=== PATIENT | male | born 1935 | race Caucasian/White ===

== ENCOUNTER 2019-04-01 15:36 | Inpatient (IN) | payer MEDICARE, OTHER ==
[~2019-04-01] VITALS: Ht 175.3 cm; Wt 87.3 kg
[2019-04-01] MEDS ORDERED: ATOR20TA38 PO (16:23)
[2019-04-01] MEDS ORDERED: MIDO5TAB PO (16:24)
[2019-04-01] MEDS ORDERED: FURO40TA4 PO (16:24)
[2019-04-01] MEDS ORDERED: SACU1TAB PO (16:25)
[2019-04-01] MEDS ORDERED: MONT10TA24 PO (16:26)
[2019-04-01] MEDS ORDERED: NEPHRO-VITE PO (16:26)
[2019-04-01] MEDS ORDERED: AMIO200T4 PO (16:29)
[2019-04-01] MEDS ORDERED: VANCOMYCIN 1 GM (PMX) 250 ML IVPB ONE (16:30)
[2019-04-01] MEDS ORDERED: IPRATROPIUM (NEB) 0.5 MG/2.5 ML AMP HHN ONE (16:30)
[2019-04-01] MEDS ORDERED: ALBUTEROL 0.083% (NEB) 2.5 MG/3 ML AMP HHN STA (16:30)
[2019-04-01] MEDS ORDERED: SEVE800T7 PO (16:30)
[2019-04-01] MEDS ORDERED: CEFEPIME 1GM/50 ML (PMX) 50 ML IVPB ONE (16:30)
[2019-04-01] MEDS ORDERED: FENO134C PO (16:31)
[2019-04-01] MEDS ORDERED: ASPI-817 PO (16:31)
[2019-04-01] MEDS ORDERED: METO-335 PO (16:31)
[2019-04-01] MEDS ORDERED: DOCU-159 PO (16:32)
[2019-04-01] MEDS ORDERED: ASPIRIN 81 MG TAB PO ONE (17:30)
[2019-04-01] MEDS ORDERED: ACETAMINOPHEN 325 MG TAB PO PRN (18:00)
[2019-04-01] MEDS ORDERED: ONDANSETRON 4 MG INJ IV PRN (18:00)
--- NOTE | 2019-04-01 18:15 | ERD ---
ER Documentation Chief Complaint Chief Complaint Hypotensive 2 hrs into dialysis 50s systolic, Fire had 112 sys onscene HPI Patient is a 83-year-old male with dialysis who presents with a low blood pressure. The patient was brought in by ambulance. He was 2 hours in dialysis when they had to stop because his blood pressure was 56/26. He denies chest pain or shortness of breath. Upon review of old medical records this is the p atgabriel's first visit to our emergency department. His primary doctor is Dr. Hinton. ROS All systems reviewed and are negative except as per history of present illness. Medications Home Meds Reported Medications Docusate Sodium* (Docusate Sodium*) 100 Mg Capsule, 100 MG PO BID, #60 CAP 04/01/19 Metoprolol Succinate* (Toprol XL*) 25 Mg Tab.sr.24h, 25 MG PO DAILY, #30 TAB 04/01/19 Aspirin* (Aspirin* EC) 81 Mg Tablet.dr, 81 MG PO DAILY, TAB 04/01/19 Fenofibrate, Micronized (Fenofibrate) 134 Mg Capsule, 134 MG PO DAILY, CAP 04/01/19 Sevelamer Carbonate* (Renvela*) 800 Mg Tablet, 1.6 GM PO BID, TAB 04/01/19 Amiodarone Hcl* (Amiodarone Hcl*) 200 Mg Tablet, 200 MG PO DAILY, #30 TAB TAKE Q ,,SAT WITH DIALYSIS 04/01/19 Montelukast Sodium* (Montelukast Sodium*) 10 Mg Tablet, 10 MG PO QHS, #30 TAB 04/01/19 [Nephro-Elieser] No Conflict Check, 1 TAB PO DAILY 04/01/19 Sacubitril/Valsartan (Entresto 24 mg-26 mg Tablet) 1 Each Tablet, 1 EACH PO BID, TAB 04/01/19 Midodrine* (Midodrine*) 5 Mg Tablet, 5 MG PO DAILY, TAB 04/01/19 Furosemide* (Furosemide*) 40 Mg Tablet, 40 MG PO DAILY, TAB 04/01/19 Atorvastatin Calcium* (Atorvastatin Calcium*) 20 Mg Tablet, 20 MG PO QHS, #30 TAB 04/01/19 Allergies Allergies: Coded Allergies: No Known Allergy (Unverified , 04/01/19) PMhx/Soc History of Surgery: Yes (Pace maker, dialysis shunt) Anesthesia Reaction: No Hx Neurological Disorder: No Hx Respiratory Disorders: Yes (Asthma) Hx Cardiac Disorders: Yes (A-fib, HTN, Pace Maker) Hx Psychiatric Problems: No Hx Miscellaneous Medical Probl: No Hx Alcohol Use: No Hx Substance Use: No Hx Tobacco Use: Yes (Quit cigarettes 2003) Smoking Status: Former smoker FmHx Family History: No diabetes Physical Exam Vitals Vital Signs Date Temp Pulse Resp B/P (MAP) Pulse Ox O2 O2 Flow FiO2 Time Delivery Rate 04/01/19 84 24 100 Nasal 6.0 16:58 Cannula 04/01/19 97.6 64 22 100/44 87 Room Air 16:10 (62) 04/01/19 97.6 68 22 100/44 15:57 (62) Physical Exam Const: Chronically ill Head: Atraumatic Eyes: Normal Conjunctiva ENT: Dry mucous membranes Neck: Full range of motion. No meningismus. Resp: Wheezing diffusely Cardio: Regular rate and rhythm, no murmurs Abd: Soft, non tender, non distended. Normal bowel sounds Skin: Pale skin Back: No midline or flank tenderness Ext: No cyanosis, or edema Neur: Awake and alert Psych: Normal Mood and Affect Result Diagram: 04/01/19 1621 04/01/19 1621 Results 24 hrs Laboratory Tests Test 04/01/19 16:21 04/01/19 16:27 White Blood Count 24.3 10^3/ul Red Blood Count 3.25 10^6/ul Hemoglobin 10.2 g/dl Hematocrit 32.9 % Mean Corpuscular Volume 101.2 fl Mean Corpuscular Hemoglobin 31.4 pg Mean Corpuscular Hemoglobin Concent 31.0 g/dl Red Cell Distribution Width 15.4 % Platelet Count 446 10^3/UL Mean Platelet Volume 10.4 fl Immature Granulocytes % 2.200 % Neutrophils % 88.8 % Lymphocytes % 2.8 % Monocytes % 6.0 % Eosinophils % 0.0 % Basophils % 0.2 % Nucleated Red Blood Cells % 0.0 /100WBC Immature Granulocytes # 0.530 10^3/ul Neutrophils # 21.6 10^3/ul Lymphocytes # 0.7 10^3/ul Monocytes # 1.5 10^3/ul Eosinophils # 0.0 10^3/ul Basophils # 0.0 10^3/ul Nucleated Red Blood Cells # 0.0 10^3/ul Prothrombin Time 17.5 Sec Prothrombin Time Ratio 1.4 INR International Normalized Ratio 1.42 Activated Partial Thromboplast Time 34.6 Sec Sodium Level 138 mmol/L Potassium Level 5.4 mmol/L Chloride Level 96 mmol/L Carbon Dioxide Level 22 mmol/L Anion Gap 20 Blood Urea Nitrogen 44 mg/dl Creatinine 5.12 mg/dl Est Glomerular Filtrat Rate mL/min mL/min Glucose Level 159 mg/dl Calcium Level 8.9 mg/dl Total Bilirubin 0.8 mg/dl Direct Bilirubin 0.30 mg/dl Indirect Bilirubin 0.5 mg/dl Aspartate Amino Transf (AST/SGOT) 51 IU/L Alanine Aminotransferase (ALT/SGPT) 46 IU/L Alkaline Phosphatase 65 IU/L Troponin I 0.137 ng/ml Total Protein 6.5 g/dl Albumin 3.3 g/dl Globulin 3.20 g/dl Albumin/Globulin Ratio 1.03 POC Venous Lactate 2.6 mmol/L Current Medications Medications Dose Sig/Yanick Start Time Status Last (Trade) Ordered Route PRN Stop Time Admin Dose Reason Admin Albuterol 5 mg ONCE STAT 04/01/19 DC 04/01/19 (Proventil HHN 16:30 16:53 0.083% (Neb)) 04/01/19 16:31 Ipratropium 0.5 mg ONCE ONCE 04/01/19 DC 04/01/19 Basile HHN 16:30 16:53 (Atrovent 04/01/19 16:31 0.02% (Neb)) Vancomycin 250 ml @ ONCE ONCE 04/01/19 04/01/19 HCl 125 mls/hr IVPB 16:30 17:15 04/01/19 18:29 Cefepime HCl 50 ml @ ONCE ONCE 04/01/19 DC 04/01/19 100 mls/hr IVPB 16:30 17:15 04/01/19 16:59 Aspirin 162 mg ONCE ONCE 04/01/19 DC 04/01/19 (Aspirin) PO 17:30 17:23 04/01/19 17:31 Ondansetron 4 mg ER BRIDGE 04/01/19 HCl (Zofran PRN IV 18:00 Inj) NAUSEA/VOMITI 04/02/19 17:59 NG 650 mg ER BRIDGE 04/01/19 Acetaminophen PRN PO 18:00 (Tylenol .MILD PAIN 04/02/19 17:59 Tab) 1-3 OR TEMP Procedures/MDM EKG read by me: Rate/Rhythm: Wide QRS at a regular rate Intervals: Normal Impression: Wide QRS X-ray read by radiology. Sepsis Documentation: Patient's infectious symptoms have not stabilized and the patient is at risk of rapid decompensation. The patient will be admitted for careful hydration, antibiotic therapy, and infectious source control. SEVERE SEPSIS CRITERIA: Infectious source: Pneumonia End organ damage indicated by: Lactate greater than 2 SEPSIS MANAGEMENT Time of recognition of sepsis: 1626. Time of recognition of severe sepsis: 1626. Time of recognition of septic shock: No septic shock at this time. 3 HOUR BUNDLE Blood cultures x 2 before broad-spectrum antibiotics: Yes 30 ml/kg NS bolus not given as the patient is a dialysis patient and I was con cerned about fluid overload Initial lactate 2.6 Repeat lactate pending SEPTIC SHOCK ASSESSMENT: No lactic acid > 4.0 No persistent hypotension (SBP < 90 or 40 mmHg drop, MAP < 65) despite 30 mL/kg IV fluid bolus VOLUME REASSESSMENT FOR SEPTIC SHOCK: No septic shock at this time PERSISTENT HYPOTENSION TREATMENT: Comfort care no Central line not Required Vasopressor started not required I considered further perfusion assessment with CVP measurement, SCVO2, bedside ultrasound volume assessment, passive leg raise, trial of further fluid bolus. And proceeded with broad-spectrum antibiotics, aspirin for a positive troponin, and admission. I spoke with Dr. Pineda who knows the patient well and will admit the patient to a telemetry bed. CRITICAL CARE Critical care time 35 minutes Emergent fluid management while maintaining close respiratory support. Provision of immediate and broad-spectrum antibiotic therapy. Simultaneous assessment for possible sources in order to direct targeted therapy. Consideration for invasive and chemical support to prevent cardiopulmonary c ollapse. Critical care time is independent of procedures performed. Departure Diagnosis: Primary Impression: Hyperkalemia Additional Impressions: PNA (pneumonia) Pneumonia type: due to unspecified organism Laterality: unspecified laterality Lung location: unspecified part of lung Qualified Codes: J18.9 - Pneumonia, unspecified organism Severe sepsis NSTEMI (non-ST elevated myocardial infarction) Condition: Serious JUAN R CHRISTENSEN MD Apr 01, 2019 18:15
[2019-04-01] MEDS ORDERED: SOD CHLORIDE 0.9% 1,000 ML IV STA ×2 (18:23→19:16)
[2019-04-01] MEDS ORDERED: NA BICARBONATE 8.4% 50 ML SYG IV ONE (19:30)
[2019-04-01 20:00] VITALS: PULSE 82
[2019-04-01] MEDS ORDERED: NORepinephrine 8MG/250 ML (PMX 250 ML IV STA (20:02)
[2019-04-01] MEDS ORDERED: VANCOMYCIN IV PER PHARMACY XX SCH (21:00)
[2019-04-01] MEDS ORDERED: ALBUTEROL/IPRATROPIUM (NEB) 3 ML AMP NEB PRN (21:00)
[2019-04-01] MEDS ORDERED: VANCOMYCIN 1 GM in 250 ML IVPB ONE (22:00)
--- NOTE | 2019-04-01 22:42 | CONS ---
Consult Date/Type/Reason Admit Date/Time Apr 01, 2019 at 17:43 Initial Consult Date Date/Time of Note DATE: 04/01/19 TIME: 22:41 Subjective full note dictated had extensive discussion with patient. wants to be full code still. aware of ct findings at [facility]. Objective Vitals Vital Signs Date Temp Pulse Resp B/P (MAP) Pulse Ox O2 O2 Flow FiO2 Time Delivery Rate 04/01/19 117 19 123/46 100 Nasal 2.0 22:10 (71) Cannula 04/01/19 97.6 21:45 Results/Medications Result Diagram: 04/01/19 1621 04/01/19 1621 Results 24 hrs Laboratory Tests Test 04/01/19 16:21 04/01/19 16:27 04/01/19 19:16 White Blood Count 24.3 H Red Blood Count 3.25 L Hemoglobin 10.2 L Hematocrit 32.9 L Mean Corpuscular Volume 101.2 H Mean Corpuscular Hemoglobin 31.4 Mean Corpuscular Hemoglobin Concent 31.0 L Red Cell Distribution Width 15.4 H Platelet Count 446 H Mean Platelet Volume 10.4 Immature Granulocytes % 2.200 H Neutrophils % 88.8 H Lymphocytes % 2.8 L Monocytes % 6.0 Eosinophils % 0.0 Basophils % 0.2 Nucleated Red Blood Cells % 0.0 Immature Granulocytes # 0.530 H Neutrophils # 21.6 H Lymphocytes # 0.7 L Monocytes # 1.5 H Eosinophils # 0.0 Basophils # 0.0 Nucleated Red Blood Cells # 0.0 Prothrombin Time 17.5 H Prothrombin Time Ratio 1.4 INR International Normalized Ratio 1.42 Activated Partial Thromboplast Time 34.6 Sodium Level 138 Potassium Level 5.4 H Chloride Level 96 L Carbon Dioxide Level 22 Anion Gap 20 H Blood Urea Nitrogen 44 H Creatinine 5.12 H Est Glomerular Filtrat Rate mL/min Glucose Level 159 Calcium Level 8.9 Total Bilirubin 0.8 Direct Bilirubin 0.30 H Indirect Bilirubin 0.5 Aspartate Amino Transf (AST/SGOT) 51 H Alanine Aminotransferase (ALT/SGPT) 46 Alkaline Phosphatase 65 Troponin I 0.137 *H Total Protein 6.5 Albumin 3.3 Globulin 3.20 Albumin/Globulin Ratio 1.03 POC Venous Lactate 2.6 *H Lactic Acid Level 3.2 *H Home Meds Reported Medications Docusate Sodium* (Docusate Sodium*) 100 Mg Capsule, 100 MG PO BID, #60 CAP 04/01/19 Metoprolol Succinate* (Toprol XL*) 25 Mg Tab.sr.24h, 25 MG PO DAILY, #30 TAB 04/01/19 Aspirin* (Aspirin* EC) 81 Mg Tablet.dr, 81 MG PO DAILY, TAB 04/01/19 Fenofibrate, Micronized (Fenofibrate) 134 Mg Capsule, 134 MG PO DAILY, CAP 04/01/19 Sevelamer Carbonate* (Renvela*) 800 Mg Tablet, 1.6 GM PO BID, TAB 04/01/19 Amiodarone Hcl* (Amiodarone Hcl*) 200 Mg Tablet, 200 MG PO DAILY, #30 TAB TAKE Q ,,SAT WITH DIALYSIS 04/01/19 Montelukast Sodium* (Montelukast Sodium*) 10 Mg Tablet, 10 MG PO QHS, #30 TAB 04/01/19 [Nephro-Elieser] No Conflict Check, 1 TAB PO DAILY 04/01/19 Sacubitril/Valsartan (Entresto 24 mg-26 mg Tablet) 1 Each Tablet, 1 EACH PO BID, TAB 04/01/19 Midodrine* (Midodrine*) 5 Mg Tablet, 5 MG PO DAILY, TAB 04/01/19 Furosemide* (Furosemide*) 40 Mg Tablet, 40 MG PO DAILY, TAB 04/01/19 Atorvastatin Calcium* (Atorvastatin Calcium*) 20 Mg Tablet, 20 MG PO QHS, #30 TAB 04/01/19 Medications Current Medications Ondansetron HCl (Zofran Inj) 4 mg ER BRIDGE PRN IV NAUSEA/VOMITING; Start 04/01/19 at 18:00; Stop 04/02/19 at 17:59 Acetaminophen (Tylenol Tab) 650 mg ER BRIDGE PRN PO .MILD PAIN 1-3 OR TEMP; Start 04/01/19 at 18:00; Stop 04/02/19 at 17:59 Norepinephrine 250 ml @ 7.5 mls/hr ONCE STAT IV Last administered on 04/01/19at 20:34; Admin Dose 56.25 MLS/HR; Start 04/01/19 at 20:02; Stop 04/03/19 at 05:21 Amiodarone HCl (Cordarone) 200 mg DAILY PO ; Start 04/02/19 at 09:00 Aspirin (Halfprin) 81 mg DAILY PO ; Start 04/02/19 at 09:00 Atorvastatin Calcium (Lipitor) 20 mg QHS PO ; Start 04/01/19 at 21:00 Docusate Sodium (Colace) 100 mg BID PO ; Start 04/01/19 at 21:00 Midodrine (Proamatine) 5 mg DAILY PO ; Start 04/02/19 at 09:00 Montelukast Sodium (Singulair) 10 mg QHS PO ; Start 04/01/19 at 21:00 Sevelamer Carbonate (Renvela) 1.6 gm BID WITH MEALS PO ; Start 04/01/19 at 21:00 Albuterol/ Ipratropium (Duoneb) 3 ml Q2H RESP THERAPY PRN NEB SHORTNESS OF BREATH; Start 04/01/19 at 21:00 Zolpidem Tartrate (Ambien) 5 mg QHS PRN PO INSOMNIA; Start 04/01/19 at 21:00 Vancomycin HCl (Vanco Iv Per Pharmacy) VANCOMYCIN PER PHARMACY PER PROTOCOL XX ; Start 04/01/19 at 21:00 Cefepime HCl 50 ml @ 100 mls/hr Q24H IVPB ; Start 04/02/19 at 09:00 Vancomycin HCl 250 ml @ 125 mls/hr ONCE ONCE IVPB ; Start 04/01/19 at 22:00; Stop 04/01/19 at 23:59 DYLAN GREENE MD Apr 01, 2019 22:42
[2019-04-01 22:44] VITALS: PULSE 99
[2019-04-01 23:00] VITALS: BP 101/77; PULSE 98; RESP 24
[2019-04-01] MEDS ORDERED: SODIUM POLYSTYRENE 15 GM KIT (POWDER + SORBITOL) PO ONE (23:00)
[2019-04-01 23:15] VITALS: BP 122/46; PULSE 92; RESP 22
[2019-04-01] MEDS: MONTELUKAST 10 MG TAB PO SCH (23:19)
[2019-04-01] MEDS: DOCUSATE SODIUM 100 MG CAP PO SCH (23:20)
[2019-04-01] MEDS: ATORVASTATIN 20 MG TAB PO SCH (23:20)
[2019-04-01] MEDS: SEVELAMER CARBONATE 0.8 GM PKT PO SCH (23:25)
[2019-04-01 23:30] VITALS: BP 97/51; PULSE 99; RESP 19
[2019-04-01 23:45] VITALS: BP 95/46; PULSE 93; RESP 24
[2019-04-02] VITALS (111 sets, daily range): BP systolic 76–139; BP diastolic 22–97; PULSE 58–180; RESP 13–31; Ht 175.3 cm; Wt 87.3 kg
[2019-04-02] MEDS: NORepinephrine 8MG/250 ML (PMX 250 ML IV SCH (02:32)
--- NOTE | 2019-04-02 05:30 | HP ---
DATE OF ADMISSION: 04/01/2019 HISTORY OF PRESENT ILLNESS: The patient is an 83-year-old gentleman with past medical history of end-stage renal disease on dialysis, hypertension, atrial fibrillation, congestive heart failure. The patient presents to the Emergency Room after noticing low blood pressure at dialysis. They had to stop as his blood pressure was 56/26. It initially came up, but in the Emergency Room, dropped again, patient has chronic low blood pressures on midodrine and as an outpatient. In the Emergency Room, noted to have pneumonia. The patient was recently at [facility] for a week. Discharged just several days ago, patient good historian despite his language barrier. His last hospitalization was for heart failure. Also had CT abdomen which showed likely hepatic cell carcinoma and peritoneal carcinomatosis, had 4 liter paracentesis on 03/27/2019. 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 ALLERGIES: The patient has no known allergies. SOCIAL HISTORY: Does not smoke, drink or use IV drugs. FAMILY HISTORY: No history of kidney disease. REVIEW OF SYSTEMS: A 14-point review of systems attempted, negative. PHYSICAL EXAMINATION: VITAL SIGNS: Temperature 97.6, blood pressure 100/44. HEENT: Normocephalic, atraumatic. Pupils equal, round. Oropharynx has moist mucous membranes. NECK: Supple. HEART: Regular rate and rhythm. LUNGS: Clear to auscultation anteriorly. ABDOMEN: Soft, nontender, nondistended. Normoactive bowel sounds. EXTREMITIES: No clubbing, cyanosis, edema. SKIN: Shows no rashes. CHEST: Symmetric. LABORATORY EVALUATION: White count 24.3, hemoglobin 10.0, hematocrit 32.9. Sodium 130, potassium 5.4, BUN 44, creatinine 5.1. UA is reviewed on microscopy. Chest x-ray is reviewed by radiologist. IMPRESSION: 1. Severe sepsis in the ICU with shock, status post fluid challenge, may need pressors if bp doesn't respond. 2. Hyperkalemia, borderline. Shifting measures will repeat. May need dialysis sooner than later. 3. Pneumonia. Continue broad spectrum antibiotics. Follow up cultures. 4. 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 Will need to have goals and values discussion. 5. Non-ST elevation myocardial infarction. Possibly demand type 2. Will need cardiology consult. 6. Diabetes. Continue sliding scale in the hospital. 7. Atrial fibrillation, on amiodarone. 8. Congestive heart failure, multiple drugs, hold in light of hypotension. Dictated By: DYLAN GREEEN MD DF/CORNELIA Conf#: [id number] DID#: [id number]
[2019-04-02] MEDS: CEFEPIME 1GM/50 ML (PMX) 50 ML IVPB SCH (08:24)
[2019-04-02] MEDS: SEVELAMER CARBONATE 0.8 GM PKT PO SCH ×2 (08:25→17:06)
[2019-04-02] MEDS: ASPIRIN (EC) 81 MG TAB PO SCH (08:25)
[2019-04-02] MEDS: MIDODRINE 5 MG TAB PO SCH (08:25)
[2019-04-02] MEDS: AMIODARONE 200 MG TAB PO SCH (08:26)
[2019-04-02] MEDS: DOCUSATE SODIUM 100 MG CAP PO SCH ×2 (08:26→22:50)
[2019-04-02] MEDS ORDERED: CEFEPIME HCL 1 GM VIAL IV SCH (09:00)
--- NOTE | 2019-04-02 12:05 | PN ---
Date/Time of Note Date/Time of Note DATE: 04/02/19 TIME: 12:01 Assessment/Plan VTE Prophylaxis SCD applied (from Nsg): Yes Pharmacological prophylaxis: NA/contraindicated Pharm contraindication: other Lines/Catheters IV Catheter Type (from Nrsg): Central Line Central line still needed: Yes Urinary Cath still in place: No Assessment/Plan Hospital Course 1. Septic shock: unclear source. possible pna? cont abx and pressors. s/p IVF. will give further gentle hydration. blood cx x2. ID consulted 2. Hyperkalemia: s/p kayexalate. will do HD today 3. Pneumonia. Continue broad spectrum antibiotics. Follow up cultures. 4. 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 Will need to have goals and values discussion. 5. Non-ST elevation myocardial infarction. Possibly demand type 2. Dr. Berumen consulted 6. Diabetes. Continue sliding scale in the hospital. 7. Atrial fibrillation, on amiodarone. 8. Congestive heart failure, multiple drugs, hold in light of hypotension. repeat echo 9. anemia due to chronic disease: decrease in hg due to hemodilution? check fobt and iron studies. epogen with hd 10. Bone Mineral disease: monitor ca and phos Result Diagram: 04/02/19 0222 04/02/19 0222 Results 24hrs Laboratory Tests Test 04/01/19 16:21 04/01/19 16:27 04/01/19 19:16 04/01/19 21:52 White Blood Count 24.3 H Red Blood Count 3.25 L Hemoglobin 10.2 L Hematocrit 32.9 L Mean Corpuscular 101.2 H Volume Mean Corpuscular 31.4 Hemoglobin Mean Corpuscular 31.0 L Hemoglobin Concent Red Cell 15.4 H Distribution Width Platelet Count 446 H Mean Platelet Volume 10.4 Immature 2.200 H Granulocytes % Neutrophils % 88.8 H Lymphocytes % 2.8 L Monocytes % 6.0 Eosinophils % 0.0 Basophils % 0.2 Nucleated Red Blood 0.0 Cells % Immature 0.530 H Granulocytes # Neutrophils # 21.6 H Lymphocytes # 0.7 L Monocytes # 1.5 H Eosinophils # 0.0 Basophils # 0.0 Nucleated Red Blood 0.0 Cells # Prothrombin Time 17.5 H Prothrombin Time 1.4 Ratio INR International 1.42 Normalized Ratio Activated 34.6 Partial Thromboplast Time Sodium Level 138 Potassium Level 5.4 H Chloride Level 96 L Carbon Dioxide Level 22 Anion Gap 20 H Blood Urea Nitrogen 44 H Creatinine 5.12 H Est Glomerular Filtrat Rate mL/min Glucose Level 159 Hemoglobin A1c 6.5 H Calcium Level 8.9 Total Bilirubin 0.8 Direct Bilirubin 0.30 H Indirect Bilirubin 0.5 Aspartate Amino 51 H Transf (AST/SGOT) Alanine 46 Aminotransferase (AL T/SGPT) Alkaline Phosphatase 65 Troponin I 0.137 *H 0.135 *H Total Protein 6.5 Albumin 3.3 Globulin 3.20 Albumin/Globulin 1.03 Ratio POC Venous Lactate 2.6 *H Lactic Acid Level 3.2 *H 2.2 *H Test 04/02/19 02:21 04/02/19 02:22 Hepatitis B Surface NEGATIVE Antigen White Blood Count 30.0 #H Red Blood Count 2.86 L Hemoglobin 8.9 L Hematocrit 30.3 L Mean Corpuscular 105.9 H Volume Mean Corpuscular 31.1 Hemoglobin Mean Corpuscular 29.4 L Hemoglobin Concent Red Cell 15.7 H Distribution Width Platelet Count 488 H Mean Platelet Volume 10.9 H Immature 2.600 H Granulocytes % Neutrophils % Segmented 81 H Neutrophils % (Manual) Band Neutrophils % 8 H (Manual) Lymphocytes % Lymphocytes % 4 L (Manual) Monocytes % Monocytes % (Manual) 7 Eosinophils % Basophils % Nucleated Red Blood 0.1 H Cells % Immature 0.790 H Granulocytes # Neutrophils # Neutrophils # 25.0 H (Manual) Band Neutrophils # 2.4 H Lymphocytes (Manual) 1.2 Lymphocytes # Monocytes # Monocytes # (Manual) 2.1 H Eosinophils # Basophils # Nucleated Red Blood Cells # Platelet Estimate NORMAL Polychromasia 3+ Poikilocytosis 3+ Sodium Level 139 Potassium Level 5.5 H Chloride Level 100 Carbon Dioxide Level 14 L Anion Gap 25 H Blood Urea Nitrogen 50 H Creatinine 5.91 H Est Glomerular Filtrat Rate mL/min Glucose Level 256 H Calcium Level 8.4 Magnesium Level 2.4 Troponin I 0.103 Subjective 24 Hr Interval Summary Free Text/Dictation pt on levophed denies shortness of breath, n/v, cough having BM with Kayexalate but no diarrhea prior. also denies f/c d/w rn PE gen nad cv rrr pulm ctab abd soft, nd, nt +bs ext: no edema Exam/Review of Systems Exam Vitals Vital Signs Date Temp Pulse Resp B/P (MAP) Pulse Ox O2 O2 Flow FiO2 Time Delivery Rate 04/02/19 87 24 95/44 (61) 100 09:30 04/02/19 Room Air 09:00 04/02/19 98.4 08:00 04/01/19 2.0 22:10 Intake and Output 04/01/19 04/01/19 04/02/19 1515:00 23:00 07:00 IntakeIntake Total 503 ml OutputOutput Total 0 ml BalanceBalance 503 ml Results Results 24hrs Laboratory Tests Test 04/01/19 16:21 04/01/19 16:27 04/01/19 19:16 04/01/19 21:52 White Blood Count 24.3 H Red Blood Count 3.25 L Hemoglobin 10.2 L Hematocrit 32.9 L Mean Corpuscular 101.2 H Volume Mean Corpuscular 31.4 Hemoglobin Mean Corpuscular 31.0 L Hemoglobin Concent Red Cell 15.4 H Distribution Width Platelet Count 446 H Mean Platelet Volume 10.4 Immature 2.200 H Granulocytes % Neutrophils % 88.8 H Lymphocytes % 2.8 L Monocytes % 6.0 Eosinophils % 0.0 Basophils % 0.2 Nucleated Red Blood 0.0 Cells % Immature 0.530 H Granulocytes # Neutrophils # 21.6 H Lymphocytes # 0.7 L Monocytes # 1.5 H Eosinophils # 0.0 Basophils # 0.0 Nucleated Red Blood 0.0 Cells # Prothrombin Time 17.5 H Prothrombin Time 1.4 Ratio INR International 1.42 Normalized Ratio Activated 34.6 Partial Thromboplast Time Sodium Level 138 Potassium Level 5.4 H Chloride Level 96 L Carbon Dioxide Level 22 Anion Gap 20 H Blood Urea Nitrogen 44 H Creatinine 5.12 H Est Glomerular Filtrat Rate mL/min Glucose Level 159 Hemoglobin A1c 6.5 H Calcium Level 8.9 Total Bilirubin 0.8 Direct Bilirubin 0.30 H Indirect Bilirubin 0.5 Aspartate Amino 51 H Transf (AST/SGOT) Alanine 46 Aminotransferase (AL T/SGPT) Alkaline Phosphatase 65 Troponin I 0.137 *H 0.135 *H Total Protein 6.5 Albumin 3.3 Globulin 3.20 Albumin/Globulin 1.03 Ratio POC Venous Lactate 2.6 *H Lactic Acid Level 3.2 *H 2.2 *H Test 04/02/19 02:21 04/02/19 02:22 Hepatitis B Surface NEGATIVE Antigen White Blood Count 30.0 #H Red Blood Count 2.86 L Hemoglobin 8.9 L Hematocrit 30.3 L Mean Corpuscular 105.9 H Volume Mean Corpuscular 31.1 Hemoglobin Mean Corpuscular 29.4 L Hemoglobin Concent Red Cell 15.7 H Distribution Width Platelet Count 488 H Mean Platelet Volume 10.9 H Immature 2.600 H Granulocytes % Neutrophils % Segmented 81 H Neutrophils % (Manual) Band Neutrophils % 8 H (Manual) Lymphocytes % Lymphocytes % 4 L (Manual) Monocytes % Monocytes % (Manual) 7 Eosinophils % Basophils % Nucleated Red Blood 0.1 H Cells % Immature 0.790 H Granulocytes # Neutrophils # Neutrophils # 25.0 H (Manual) Band Neutrophils # 2.4 H Lymphocytes (Manual) 1.2 Lymphocytes # Monocytes # Monocytes # (Manual) 2.1 H Eosinophils # Basophils # Nucleated Red Blood Cells # Platelet Estimate NORMAL Polychromasia 3+ Poikilocytosis 3+ Sodium Level 139 Potassium Level 5.5 H Chloride Level 100 Carbon Dioxide Level 14 L Anion Gap 25 H Blood Urea Nitrogen 50 H Creatinine 5.91 H Est Glomerular Filtrat Rate mL/min Glucose Level 256 H Calcium Level 8.4 Magnesium Level 2.4 Troponin I 0.103 Medications Medication Current Medications Ondansetron HCl (Zofran Inj) 4 mg ER BRIDGE PRN IV NAUSEA/VOMITING; Start 04/01/19 at 18:00; Stop 04/02/19 at 17:59 Acetaminophen (Tylenol Tab) 650 mg ER BRIDGE PRN PO .MILD PAIN 1-3 OR TEMP; Start 04/01/19 at 18:00; Stop 04/02/19 at 17:59 Norepinephrine 250 ml @ 7.5 mls/hr ONCE STAT IV Last administered on 04/01/19at 20:34; Admin Dose 56.25 MLS/HR; Start 04/01/19 at 20:02; Stop 04/03/19 at 05:21 Amiodarone HCl (Cordarone) 200 mg DAILY PO Last administered on 04/02/19at 08:26; Admin Dose 200 MG; Start 04/02/19 at 09:00 Aspirin (Halfprin) 81 mg DAILY PO Last administered on 04/02/19at 08:25; Admin Dose 81 MG; Start 04/02/19 at 09:00 Atorvastatin Calcium (Lipitor) 20 mg QHS PO Last administered on 04/01/19 23:20; Admin Dose 20 MG; Start 04/01/19 at 21:00 Docusate Sodium (Colace) 100 mg BID PO Last administered on 04/02/19 08:26; Admin Dose 100 MG; Start 04/01/19 at 21:00 Midodrine (Proamatine) 5 mg DAILY PO Last administered on 04/02/19 08:25; Admin Dose 5 MG; Start 04/02/19 at 09:00 Montelukast Sodium (Singulair) 10 mg QHS PO Last administered on 04/01/19 23:19; Admin Dose 10 MG; Start 04/01/19 at 21:00 Sevelamer Carbonate (Renvela) 1.6 gm BID WITH MEALS PO Last administered on 04/02/19 08:25; Admin Dose 1.6 GM; Start 04/01/19 at 21:00 Albuterol/ Ipratropium (Duoneb) 3 ml Q2H RESP THERAPY PRN NEB SHORTNESS OF BREATH; Start 04/01/19 at 21:00 Zolpidem Tartrate (Ambien) 5 mg QHS PRN PO INSOMNIA; Start 04/01/19 at 21:00 Vancomycin HCl (Vanco Iv Per Pharmacy) VANCOMYCIN PER PHARMACY PER PROTOCOL XX ; Start 04/01/19 at 21:00 Cefepime HCl 50 ml @ 100 mls/hr Q24H IVPB Last administered on 04/02/19 08:24; Admin Dose 100 MLS/HR; Start 04/02/19 at 09:00 Norepinephrine 250 ml @ 1.875 mls/ hr TITRATE IV Last administered on 04/02/19 02:32; Admin Dose 31.875 MLS/HR; Start 04/02/19 at 02:30 JAMES MICHAEL MD Apr 02, 2019 12:05
[2019-04-02] MEDS: SOD CHLORIDE 0.9% 1,000 ML IV SCH (12:30)
--- NOTE | 2019-04-02 15:39 | CONS ---
DATE OF ADMISSION: 04/01/2019 DATE OF CONSULTATION: 04/02/2019 TYPE OF CONSULT: Infectious Disease. REASON FOR CONSULTATION: Antibiotic management. HISTORY OF PRESENT ILLNESS: Gem Haines is an 83-year-old [place] male who comes in wi th hypotension, 2 hours into dialysis. The patient has end-stage renal disease on dialysis. He was brought in by ambulance. He denies chest pain or shortness of breath. PAST PROBLEMS INCLUDE: Dialysis shunt, fistula and a pacemaker. The patient has asthma, atrial fibr illation and hypertension. FAMILY HISTORY: Noncontributory. SOCIAL HISTORY: He quit smoking in 2003. He does not drink or abuse drugs. ALLERGIES: NONE TO PENICILLIN, SULFA OR FOODS. MEDICATIONS: Per chart. REVIEW OF SYSTEMS: Noncontributory. PHYSICAL EXAMINATION: GENERAL: The patient is a chronically ill-appearing male who is awake, responsive, in no acute distr ess. VITAL SIGNS: Stable. He is afebrile. SKIN: Without generalized rash. HEENT: Within normal limits. NECK: Supple. LYMPH NODES: None palpable. CHEST: Decreased breath sounds at the bases. HEART: Without murmur or gallop. ABDOMEN: Soft, nontender, without organosplenomegaly or masses. EXTREMITIES: Without cyanosis, clubbing, or edema. RECTAL AND GENITAL: Deferred. NEUROLOGIC: No focal neurological abnormality. ANCILLARY LABORATORY DATA: White count 24.3 with 89% neutrophils, H and H of 10.2 and 32.9, platelet count 446,000. BUN and creatinine 44/5.12. IMPRESSION AND PLAN: The patient has clearly renal failure. He is on vancomycin and cefepime. Infe ctious source is probable pneumonia. Blood cultures were done. The patient has patchy right basilar atelectasis, development of small left pleural effusion with associated compressive atelectasis. We will continue him on vancomycin and cefepime. The patient was seen by Dr. Greene. Severe sep sis in the ICU with shock, status post fluid challenge, may need pressors if blood pressure does not maintain. Significant paroxysmal atrial fibrillation. 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 In summary, the patient is extremely ill and decision should be made on h is final care. We will continue him on vancomycin and cefepime. He was recently at [facility] for a week. I will dictate my findings to Dr. Greene. Dictated By: YUE OQUENDO MD, JD/NTS Conf#: [id number] DID#: [id number] CC: DYLAN GREENE MD;*EndCC*
[2019-04-02] MEDS ORDERED: EPOETIN ALFA-EPBX (ESRD) 4,000 UNIT/ML VIAL SC SCH ×2 (16:00)
[2019-04-02] MEDS: ZOLPIDEM 5 MG TAB PO PRN (21:20)
[2019-04-02] MEDS: ATORVASTATIN 20 MG TAB PO SCH (22:49)
[2019-04-02] MEDS: MONTELUKAST 10 MG TAB PO SCH (22:49)
[2019-04-03] VITALS (95 sets, daily range): BP systolic 62–158; BP diastolic 18–119; PULSE 62–106; RESP 15–33
[2019-04-03] MEDS: NORepinephrine 8MG/250 ML (PMX 250 ML IV SCH (05:04)
[2019-04-03] MEDS: SOD CHLORIDE 0.9% 1,000 ML IV SCH ×2 (06:11→23:52)
--- NOTE | 2019-04-03 08:41 | PN ---
DATE: 04/03/2019 SUBJECTIVE: The patient remains critically ill on pressor support. The patient is currently confuse d. No other acute events noted. No hemoptysis, hematemesis or hematochezia. OBJECTIVE: VITAL SIGNS: Blood pressure is 102/58, respirations 25, pulse 102, temperature 98.6. HEENT: Head is normocephalic. NECK: Supple. HEART: Regular rate. LUNGS: Show diminished breath sounds at the base. ABDOMEN: Soft, nontender to palpation without rebound or guarding. EXTREMITIES: Negative for clubbing, cyanosis, no edema. DERMATOLOGIC: No rashes. MUSCULOSKELETAL: No joint effusions. NEUROLOGIC: Patient is confused, limited exam, no obvious focal deficits. MEDICATIONS: Reviewed. LABORATORY DATA: Reviewed. IMAGING STUDIES: Reviewed. ASSESSMENT AND PLAN: 1. Septic shock, underlying source is unclear, questionable pneumonia. The patient remains on press or support, on antibiotic therapy. The patient's cultures have been reviewed and negative to date. Plan at this point is to check procalcitonin level. We will continue current antibiotic regimen. We will follow up with infectious disease. Consider a CT scan of abdomen and pelvis to rule out intra- abdominal source. Will continue to monitor closely. Wean off pressor support as tolerated. 2. End-stage renal disease. The patient had hemodialysis yesterday, tolerated well. Continue to mo nitor. Plan for hemodialysis again tomorrow. 3. Anemia. Monitor hemoglobin and hematocrit levels. Will give Epogen as needed. 4. Mineral bone disorder. Monitor calcium and phosphorus levels. 5. Metabolic acidosis secondary to end-stage renal disease. Continue dialysis on a high bicarbonate bath. 6. Recent diagnosis of hepatocellular carcinoma with carcinomatosis. Will continue to monitor. Jamel l consider a GI evaluation and oncology evaluation. Continue to monitor closely. 7. Non-ST elevation myocardial infarction, possibly type 2. Cardiology was consulted. Follow up [facility] Dr. Berumen. 8. Diabetes. Continue Accu-Cheks and sliding scale. 9. Arrhythmia, atrial fibrillation. The patient is on amiodarone. Continue to monitor. 10. History of congestive heart failure. Continue medical management. 11. Acute encephalopathy. Etiology is toxic metabolic. Please note, I spent over 30 minutes of critical care time with this patient. Dictated By: ADA MORENO/CORNELIA Conf#: [id number] [facility]#: [id number] CC: DYLAN GREENE MD;*[facility]*
[2019-04-03] MEDS: CEFEPIME 1GM/50 ML (PMX) 50 ML IVPB SCH (09:11)
[2019-04-03] MEDS: MIDODRINE 5 MG TAB PO SCH (09:11)
[2019-04-03] MEDS: AMIODARONE 200 MG TAB PO SCH (09:11)
[2019-04-03] MEDS: ASPIRIN (EC) 81 MG TAB PO SCH (09:11)
[2019-04-03] MEDS: DOCUSATE SODIUM 100 MG CAP PO SCH ×2 (09:11→20:21)
[2019-04-03] MEDS: SEVELAMER CARBONATE 0.8 GM PKT PO SCH ×2 (09:12→17:50)
--- NOTE | 2019-04-03 09:23 | CONS ---
Assessment/Plan Assessment/Plan Assessment/Plan (Daily) Chest x-ray showing cardiomegaly with very minimal pulmonary vascular congestion. Assessment and recommendations; 1. Patient with history of end-stage renal disease admitted from dialysis center because of severe hypotension likely due to sepsis. Possibly line associated. 2. History of liver cancer, possibly with peritoneal carcinomatosis. 3. History of cardiac arrhythmia, history of atrial fibrillation, status post pacemaker placement in the past. 4. Anemia of chronic disease. Continue current supportive care. Patient is currently on appropriate antimicrobial regimen. Obtain follow-up chest x-ray 24 hours. Hemodialysis per oil process stillman. Extent of liver malignancy needs to be clarified. Consultation Date/Type/Reason Admit Date/Time Apr 01, 2019 at 17:43 Date of Consultation: Apr 03, 2019 Type of Consult Pulmonary/critical care Patient is a pleasant 83-year-old gentleman who was sent over from dialysis center because of hypotension. Patient been diagnosed with sepsis, has been adequately fluid resuscitated and currently on Levophed drip. Patient remains completely awake and alert. Denies any shortness of breath, fever, chest pain, nausea vomiting. Past medical history; 1. End-stage renal disease, on hemodialysis. 2. Liver cancer. 3. Anemia of chronic disease. 4. Chronic atrial fibrillation. History of pacemaker placement. 5. CHF. Medications; reviewed. Allergies; none. Family history; noncontributory. Occupational history; noncontributory. Review of systems; denies any headache, seizures. Shortness of breath has improved. Denies any abdominal pain, nausea vomiting. Denies any edema. Any fever or chills. Denies any seizures. General exam; elderly male, laying comfortably in bed on room air. Currently in no distress. Date/Time of Note DATE: 04/03/19 TIME: 09:19 Past Medical History Home Meds Reported Medications Docusate Sodium* (Docusate Sodium*) 100 Mg Capsule, 100 MG PO BID, #60 CAP 04/01/19 Metoprolol Succinate* (Toprol XL*) 25 Mg Tab.sr.24h, 25 MG PO DAILY, #30 TAB 04/01/19 Aspirin* (Aspirin* EC) 81 Mg Tablet.dr, 81 MG PO DAILY, TAB 04/01/19 Fenofibrate, Micronized (Fenofibrate) 134 Mg Capsule, 134 MG PO DAILY, CAP 04/01/19 Sevelamer Carbonate* (Renvela*) 800 Mg Tablet, 1.6 GM PO BID, TAB 04/01/19 Amiodarone Hcl* (Amiodarone Hcl*) 200 Mg Tablet, 200 MG PO DAILY, #30 TAB TAKE Q TUES,THURS,SAT WITH DIALYSIS 04/01/19 Montelukast Sodium* (Montelukast Sodium*) 10 Mg Tablet, 10 MG PO QHS, #30 TAB 04/01/19 [Nephro-Elieser] No Conflict Check, 1 TAB PO DAILY 04/01/19 Sacubitril/Valsartan (Entresto 24 mg-26 mg Tablet) 1 Each Tablet, 1 EACH PO BID, TAB 04/01/19 Midodrine* (Midodrine*) 5 Mg Tablet, 5 MG PO DAILY, TAB 04/01/19 Furosemide* (Furosemide*) 40 Mg Tablet, 40 MG PO DAILY, TAB 04/01/19 Atorvastatin Calcium* (Atorvastatin Calcium*) 20 Mg Tablet, 20 MG PO QHS, #30 TAB 04/01/19 Medications Current Medications Amiodarone HCl (Cordarone) 200 mg DAILY PO Last administered on 04/03/19 09:11; Admin Dose 200 MG; Start 04/02/19 at 09:00 Aspirin (Halfprin) 81 mg DAILY PO Last administered on 04/03/19at 09:11; Admin Dose 81 MG; Start 04/02/19 at 09:00 Atorvastatin Calcium (Lipitor) 20 mg QHS PO Last administered on 04/02/19at 22:49; Admin Dose 20 MG; Start 04/01/19 at 21:00 Docusate Sodium (Colace) 100 mg BID PO Last administered on 04/03/19 09:11; Admin Dose 100 MG; Start 04/01/19 at 21:00 Midodrine (Proamatine) 5 mg DAILY PO Last administered on 04/03/19 09:11; Admin Dose 5 MG; Start 04/02/19 at 09:00 Montelukast Sodium (Singulair) 10 mg QHS PO Last administered on 04/02/19at 22:49; Admin Dose 10 MG; Start 04/01/19 at 21:00 Sevelamer Carbonate (Renvela) 1.6 gm BID WITH MEALS PO Last administered on at 09:12; Admin Dose 1.6 GM; Start 04/01/19 at 21:00 Albuterol/ Ipratropium (Duoneb) 3 ml Q2H RESP THERAPY PRN NEB SHORTNESS OF BREATH; Start 04/01/19 at 21:00 Zolpidem Tartrate (Ambien) 5 mg QHS PRN PO INSOMNIA Last administered on 04/02/19at 21:20; Admin Dose 5 MG; Start 04/01/19 at 21:00 Vancomycin HCl (Vanco Iv Per Pharmacy) VANCOMYCIN PER PHARMACY PER PROTOCOL XX ; Start 04/01/19 at 21:00 Cefepime HCl 50 ml @ 100 mls/hr Q24H IVPB Last administered on 04/03/19at 09:11; Admin Dose 100 MLS/HR; Start 04/02/19 at 09:00 Norepinephrine 250 ml @ 1.875 mls/ hr TITRATE IV Last administered on 04/03/19at 05:04; Admin Dose 26.25 MLS/HR; Start 04/02/19 at 02:30 Epoetin Jatinder-epbx (Retacrit (Esrd)) 4,000 unit AFTER DIALYSIS SC Last administered on 04/03/19at 01:07; Admin Dose 4,000 UNIT; Start 04/02/19 at 16:00 Sodium Chloride 1,000 ml @ 30 mls/hr Q24H IV Last administered on 04/03/19at 06:11; Admin Dose 30 MLS/HR; Start 04/02/19 at 12:30 Vancomycin HCl 250 ml @ 125 mls/hr ONCE IVPB ; Start 04/03/19 at 22:00; Stop 04/03/19 at 23:59 Allergies: Coded Allergies: No Known Allergy (Unverified , 04/01/19) Social History Smoking Status: Former smoker Exam/Review of Systems Exam Vitals Vital Signs Date Temp Pulse Resp B/P (MAP) Pulse Ox O2 O2 Flow FiO2 Time Delivery Rate 04/03/19 97 24 106/65 06:45 (79) 04/03/19 96 06:30 04/03/19 Room Air 06:00 04/03/19 97.7 04:00 04/01/19 2.0 22:10 Intake and Output 04/02/19 04/02/19 04/03/19 1515:00 23:00 07:00 IntakeIntake Total 376.625 ml 227.85 ml 108.75 ml OutputOutput Total 0 ml 800 ml BalanceBalance 376.625 ml 227.85 ml -691.25 ml Exam H EENT exam; supple neck, no JVD. No lymphadenopathy. Midline trachea. No thyromegaly. No neck masses. Pupils are small bilaterally. Chest exam; diminished but clear breath sounds. S1-S2 audible, no murmurs. Pacemaker in left chest wall. Abdomen exam; soft, no organomegaly. Bowel sounds audible. Extremity exam; no edema. There is an AV shunt in the right arm. CHILD LIFE SPECIALIST exam; no focal deficit. Results Result Diagram: 04/03/19 0400 04/03/19 0400 Results 24hrs Laboratory Tests Test 04/02/19 13:11 04/03/19 04:00 Lactic Acid Level 1.3 White Blood Count 28.6 H Red Blood Count 2.83 L Hemoglobin 9.0 L Hematocrit 29.2 L Mean Corpuscular Volume 103.2 H Mean Corpuscular Hemoglobin 31.8 Mean Corpuscular Hemoglobin Concent 30.8 L Red Cell Distribution Width 15.9 H Platelet Count 493 H Mean Platelet Volume 10.7 H Immature Granulocytes % 2.500 H Neutrophils % 90.7 H Lymphocytes % 2.3 L Monocytes % 4.4 Eosinophils % 0.0 Basophils % 0.1 Nucleated Red Blood Cells % 0.1 H Immature Granulocytes # 0.710 H Neutrophils # 26.0 H Lymphocytes # 0.7 L Monocytes # 1.3 H Eosinophils # 0.0 Basophils # 0.0 Nucleated Red Blood Cells # 0.0 Sodium Level 138 Potassium Level 4.5 Chloride Level 96 L Carbon Dioxide Level 22 Anion Gap 20 H Blood Urea Nitrogen 31 #H Creatinine 3.98 #H Est Glomerular Filtrat Rate mL/min Glucose Level 170 Calcium Level 8.7 Phosphorus Level 5.0 H Magnesium Level 2.2 Iron Level 23 L Total Iron Binding Capacity 137 L Percent Iron Saturation 17 L Random Vancomycin Level 13.0 Medications Medication Current Medications Amiodarone HCl (Cordarone) 200 mg DAILY PO Last administered on 04/03/19at 09:11; Admin Dose 200 MG; Start 04/02/19 at 09:00 Aspirin (Halfprin) 81 mg DAILY PO Last administered on 04/03/19at 09:11; Admin Dose 81 MG; Start 04/02/19 at 09:00 Atorvastatin Calcium (Lipitor) 20 mg QHS PO Last administered on 04/02/19 22:49; Admin Dose 20 MG; Start 04/01/19 at 21:00 Docusate Sodium (Colace) 100 mg BID PO Last administered on 04/03/19 09:11; Admin Dose 100 MG; Start 04/01/19 at 21:00 Midodrine (Proamatine) 5 mg DAILY PO Last administered on 04/03/19 09:11; Admin Dose 5 MG; Start 04/02/19 at 09:00 Montelukast Sodium (Singulair) 10 mg QHS PO Last administered on 04/02/19 22:49; Admin Dose 10 MG; Start 04/01/19 at 21:00 Sevelamer Carbonate (Renvela) 1.6 gm BID WITH MEALS PO Last administered on 04/03/19 09:12; Admin Dose 1.6 GM; Start 04/01/19 at 21:00 Albuterol/ Ipratropium (Duoneb) 3 ml Q2H RESP THERAPY PRN NEB SHORTNESS OF BREATH; Start 04/01/19 at 21:00 Zolpidem Tartrate (Ambien) 5 mg QHS PRN PO INSOMNIA Last administered on 21:20; Admin Dose 5 MG; Start 04/01/19 at 21:00 Vancomycin HCl (Vanco Iv Per Pharmacy) VANCOMYCIN PER PHARMACY PER PROTOCOL XX ; Start 04/01/19 at 21:00 Cefepime HCl 50 ml @ 100 mls/hr Q24H IVPB Last administered on 04/03/19 09:11; Admin Dose 100 MLS/HR; Start 04/02/19 at 09:00 Norepinephrine 250 ml @ 1.875 mls/ hr TITRATE IV Last administered on 04/03/19 05:04; Admin Dose 26.25 MLS/HR; Start 04/02/19 at 02:30 Epoetin Jatinder-epbx (Retacrit (Esrd)) 4,000 unit AFTER DIALYSIS SC Last a dministered on 04/03/19 01:07; Admin Dose 4,000 UNIT; Start 04/02/19 at 16:00 Sodium Chloride 1,000 ml @ 30 mls/hr Q24H IV Last administered on 6/17/19at 06:11; Admin Dose 30 MLS/HR; Start 04/02/19 at 12:30 Vancomycin HCl 250 ml @ 125 mls/hr ONCE IVPB ; Start 04/03/19 at 22:00; Stop 04/03/19 at 23:59 NANCY LIRA Apr 03, 2019 09:23
[2019-04-03] MEDS ORDERED: SOD CHLORIDE 0.9% 500 ML IV ONE (13:00)
[2019-04-03] MEDS ORDERED: LIDOCAINE 1% (MPF) 5 ML VIAL SC ONE (14:00)
--- NOTE | 2019-04-03 15:04 | CONS ---
Assessment/Plan Assessment/Plan Hospital Course (Demo Recall) Patient is awake looks comfortable off pressors no fevers overnight family at bedside. WBC 28.6 platelets 493 neutrophils 90.7 Indwelling's right upper extremity AV fistula Procalcitonin 10.74 lactic acid 2.7 Chest x-ray on admission revealed patchy right basilar atelectasis Microbiology: Blood cultures remain negative Antimicrobials: Patient is on cefepime and vancomycin Physical examination: This is an obese well-developed elderly Citizen [place] man who is awake in no distress. Head atraumatic normocephalic neck is supple chest rise symmetrical breath sounds diminished bases. Heart: S1-S2. Tachycardic abdomen soft obese bowel sounds hypoactive extremities without cyanosis, trace edema Assessment: 1. Sepsis with shock, off pressors since this morning 2. Questionable pneumonia 3. End-stage renal disease, hemodialysis dependent 4. Recently diagnosed hepatocellular carcinoma 5. Coronary artery disease status post permanent pacemaker 6. Diabetes 7. Atrial fibrillation Plan: Stable off pressors, continue antibiotics, follow pulmonary recommendations Consultation Date/Type/Reason Admit Date/Time Apr 01, 2019 at 17:43 Initial Consult Date 04/03/19 Type of Consult id Date/Time of Note DATE: 04/03/19 TIME: 15:03 Exam/Review of Systems Exam Vitals Vital Signs Date Temp Pulse Resp B/P (MAP) Pulse Ox O2 O2 Flow FiO2 Time Delivery Rate 04/03/19 103 28 76/60 (65) 97 14:15 04/03/19 Room Air 14:00 04/03/19 98.0 12:00 04/01/19 2.0 22:10 Intake and Output 04/02/19 04/02/19 04/03/19 1515:00 23:00 07:00 IntakeIntake Total 376.625 ml 227.85 ml 133.25 ml OutputOutput Total 0 ml 800 ml BalanceBalance 376.625 ml 227.85 ml -666.75 ml Results Result Diagram: 04/03/190 04/03/19 0400 Results 24hrs Laboratory Tests Test 04/03/19 04:00 04/03/19 08:56 04/03/19 11:59 White Blood Count 28.6 H Red Blood Count 2.83 L Hemoglobin 9.0 L Hematocrit 29.2 L Mean Corpuscular Volume 103.2 H Mean Corpuscular Hemoglobin 31.8 Mean Corpuscular Hemoglobin Concent 30.8 L Red Cell Distribution Width 15.9 H Platelet Count 493 H Mean Platelet Volume 10.7 H Immature Granulocytes % 2.500 H Neutrophils % 90.7 H Lymphocytes % 2.3 L Monocytes % 4.4 Eosinophils % 0.0 Basophils % 0.1 Nucleated Red Blood Cells % 0.1 H Immature Granulocytes # 0.710 H Neutrophils # 26.0 H Lymphocytes # 0.7 L Monocytes # 1.3 H Eosinophils # 0.0 Basophils # 0.0 Nucleated Red Blood Cells # 0.0 Sodium Level 138 Potassium Level 4.5 Chloride Level 96 L Carbon Dioxide Level 22 Anion Gap 20 H Blood Urea Nitrogen 31 #H Creatinine 3.98 #H Est Glomerular Filtrat Rate mL/min Glucose Level 170 Calcium Level 8.7 Phosphorus Level 5.0 H Magnesium Level 2.2 Iron Level 23 L Total Iron Binding Capacity 137 L Percent Iron Saturation 17 L Random Vancomycin Level 13.0 Lactic Acid Level 2.7 *H 2.1 *H Procalcitonin 10.74 H Medications Medication Current Medications Amiodarone HCl (Cordarone) 200 mg DAILY PO Last administered on 04/03/19 09:11; Admin Dose 200 MG; Start 04/02/19 at 09:00 Aspirin (Halfprin) 81 mg DAILY PO Last administered on 04/03/19 09:11; Admin Dose 81 MG; Start 04/02/19 at 09:00 Atorvastatin Calcium (Lipitor) 20 mg QHS PO Last administered on 04/02/19 22:49; Admin Dose 20 MG; Start 04/01/19 at 21:00 Docusate Sodium (Colace) 100 mg BID PO Last administered on 04/03/19 09:11; Admin Dose 100 MG; Start 04/01/19 at 21:00 Midodrine (Proamatine) 5 mg DAILY PO Last administered on 04/03/19 09:11; Admin Dose 5 MG; Start 04/02/19 at 09:00 Montelukast Sodium (Singulair) 10 mg QHS PO Last administered on 04/02/19 22:49; Admin Dose 10 MG; Start 04/01/19 at 21:00 Sevelamer Carbonate (Renvela) 1.6 gm BID WITH MEALS PO Last administered on 04/03/19 09:12; Admin Dose 1.6 GM; Start 04/01/19 at 21:00 Albuterol/ Ipratropium (Duoneb) 3 ml Q2H RESP THERAPY PRN NEB SHORTNESS OF BREATH; Start 04/01/19 at 21:00 Zolpidem Tartrate (Ambien) 5 mg QHS PRN PO INSOMNIA Last administered on 04/02/19at 21:20; Admin Dose 5 MG; Start 04/01/19 at 21:00 Vancomycin HCl (Vanco Iv Per Pharmacy) VANCOMYCIN PER PHARMACY PER PROTOCOL XX ; Start 04/01/19 at 21:00 Cefepime HCl 50 ml @ 100 mls/hr Q24H IVPB Last administered on 04/03/19at 09:11 ; Admin Dose 100 MLS/HR; Start 04/02/19 at 09:00 Norepinephrine 250 ml @ 1.875 mls/ hr TITRATE IV Last administered on 04/03/19at 05:04; Admin Dose 26.25 MLS/HR; Start 04/02/19 at 02:30 Epoetin Jatinder-epbx (Retacrit (Esrd)) 4,000 unit AFTER DIALYSIS SC Last administered on 04/03/19at 01:07; Admin Dose 4,000 UNIT; Start 04/02/19 at 16:00 Sodium Chloride 1,000 ml @ 30 mls/hr Q24H IV Last administered on 04/03/19at 06:11; Admin Dose 30 MLS/HR; Start 04/02/19 at 12:30 Vancomycin HCl 250 ml @ 125 mls/hr ONCE IVPB ; Start 04/03/19 at 22:00; Stop 04/03/19 at 23:59 JOAO RAHMAN NP Apr 03, 2019 15:04
--- NOTE | 2019-04-03 15:58 | RADRPT ---
Echocardiogram Report Patient Name: Madai ENGLE ID: [id number] : 1935 (83y 4m)Study Date: 04/02/2019 1:32:48 PM Gender: MAccession #: [id number] Tech: Eugenio Long [facility] Location: [facility] Ref.Physician: JAMES MICHAEL Height(Cm): BSA: Weight(Kg): Quality: Technically Difficult StudyOrder Physician: JAMES MICHAEL Account #: Procedures: Echocardiographic Report: Transthoracic echocardiogram with complete 2D, M-Mode, and doppler examination. Indications: Congestive Heart Failure. Measurements: 2D/M Mode Doppler Measurement Value Normal Range Measurement Value Normal Range LVIDd 2D 5.0 [ 4.2 - 5.8 ] cm AV Peak [place] 1.5 [ 100.0 - 170.0 ] cm/sec LVIDs 2D 3.3 [ 2.5 - 4.0 ] cm AV Peak PG 9.0 [ 2.0 - 9.0 ] mmHg LVPWd 2D 1.3 [ 0.6 - 1.0 ] cm LVOT Peak [place] 1.1 [ 70.0 - 110.0 ] cm/sec IVSd 2D 1.4 [ 0.6 - 1.0 ] cm LVOT Peak PG 5.0 [ 2.0 - 6.0 ] mmHg AoR Diam 2D 3.3 [ 2.6 - 3.4 ] cm Lat E` [place] 0.1 [ 10.0 - 15.0 ] cm/sec EDV 2D 117.0 [ 62.0 - 150.0 ] ml TR Peak [place] 4.2 [ 100.0 - 280.0 ] cm/sec ESV 2D 42.5 [ 21.0 - 61.0 ] ml TR Peak PG 70.0 mmHg EF 2D 63.7 [ 52.0 - 72.0 ] percent RVSP 80.0 [ 10.0 - 36.0 ] mmHg LA Dimen 2D 3.6 [ 3.0 - 4.0 ] cm RA Pressure 10.0 mmHg Findings: Left Ventricle: Lower limits of normal systolic function. Overall, normal left ventricular systolic function. Not all segments visualized. Normal left ventricular cavity size. Left ventricle not well visualized. Mild concentric left ventricular hypertrophy. Ejection fraction is visually estimated at 50-55 %. Abnormal Diastolic Function. Right Ventricle: Normal right ventricular size. Normal right ventricular systolic function. Linear artifact in right ventricle suggestive of catheter, pacer lead, or ICD lead. Left Atrium: The left atrium is normal in size. Right Atrium: The right atrium is normal in size. Mitral Valve: Normal appearance and function of the mitral valve with trace physiologic regurgitation. Mitral valve is not well visualized. Aortic Valve: No significant aortic stenosis or insufficiency. Aortic valve not well visualized. Aortic cusps appear mildly calcified. Tricuspid Valve: Normal appearance of the tricuspid valve. Tricuspid valve not well visualized. There is mild tricuspid regurgitation. Pulmonic Valve: Pulmonic valve not well visualized. Pericardium: Normal pericardium with no significant pericardial effusion. Aorta: Normal aortic root. IVC: Dilated IVC with respiratory collapse consistent with elevated right atrial pressure. Conclusions: Lower limits of normal systolic function. Overall, normal left ventricular systolic function. Not all segments visualized. Normal left ventricular cavity size. Left ventricle not well visualized. Mild concentric left ventricular hypertrophy. Ejection fraction is visually estimated at 50-55 %. Abnormal Diastolic Function. Normal appearance and function of the mitral valve with trace physiologic regurgitation. Mitral valve is not well visualized. No significant aortic stenosis or insufficiency. Aortic valve not well visualized. Aortic cusps appear mildly calcified. Normal appearance of the tricuspid valve. Tricuspid valve not well visualized. There is mild tricuspid regurgitation. very suboptimal study. Electronically Signed By: José Berumen 2019-04-03 15:58:28 PDT
--- NOTE | 2019-04-03 17:36 | CONS ---
Assessment/Plan Assessment/Plan Hospital Course (Demo Recall) Mildly abnormal troponin secondary to sepsis renal failure etc. Sepsis/pneumonia Pneumonia History of hepatocellular cancer Renal failure dialysis dependent Arrhythmia probably sick sinus syndrome versus heart block status post permanent pacemaker Encephalopathy Paroxysmal atrial fibrillation Recommendations: Continue with aspirin as noted no active bleeding is noted Antibiotic management as per internal medicine Continue to be hemodialysis as tolerated Unable to tolerate beta-damian due to his low blood pressure Milronone would be continued Thank you for this referral. We will continue to follow along with you JOSE D SOLOMON MD [facility] Consultation Date/Type/Reason Admit Date/Time Apr 01, 2019 at 17:43 Date of Consultation: Apr 03, 2019 Type of Consult Cardiology Reason for Consultation abnormal trop Requesting Provider: ADA RANGEL DO Date/Time of Note DATE: 04/03/19 TIME: 17:30 Hx of Present Illness Interventional cardiology consultation note Chief complaint: Hypotension Reason for consult: Abnormal troponin and arrhythmia History of present illness: Thank you for this referral. History was obtained multiple discussion with the staff and physicians review of the chart. Patient himself is lethargic is not able to provide reliable history to me. This is a Pleasant 83-year-old gentleman with past medical history of end-stage renal disease on dialysis, hypertension, Patrial fibrillation, congestive heart failure who was admitted because of low blood pressure. Patient blood pressure has been as low as the 50s. He was admitted to the ICU and has been placed on Levophed drip which has been able to be weaned off this morning.. In the Emergency Room, noted to have pneumonia. The patient was recently at [facility] for a week. Discharged just several days ago. His last hospitalization was for heart failure. Also had CT abdomen which showed likely hepatic cell carcinoma and peritoneal carcinomatosis, had 4 liter paracentesis on 03/27/2019. His troponin was mildly elevated but there is no report of any left-sided chest pain or pressure at this point he denies any pain to me. PAST MEDICAL HISTORY: Significant for paroxysmal atrial fibrillation, congestive heart failure, anemia, likely hepatocellular carcinoma plus peritoneal carcinomatosis, cirrhosis with ascites, recently hospitalized diabetes, COPD, coagulopathy, permanent pacemaker. ALLERGIES: The patient has no known allergies. SOCIAL HISTORY: Does not smoke, drink or use IV drugs. FAMILY HISTORY: No history of early coronary artery disease Medications were reviewed as per medical reconciliation sheet Review of system: Patient denies all others except for above-mentioned Past Medical History Home Meds Reported Medications Docusate Sodium* (Docusate Sodium*) 100 Mg Capsule, 100 MG PO BID, #60 CAP 04/01/19 Metoprolol Succinate* (Toprol XL*) 25 Mg Tab.sr.24h, 25 MG PO DAILY, #30 TAB 04/01/19 Aspirin* (Aspirin* EC) 81 Mg Tablet.dr, 81 MG PO DAILY, TAB 04/01/19 Fenofibrate, Micronized (Fenofibrate) 134 Mg Capsule, 134 MG PO DAILY, CAP 04/01/19 Sevelamer Carbonate* (Renvela*) 800 Mg Tablet, 1.6 GM PO BID, TAB 04/01/19 Amiodarone Hcl* (Amiodarone Hcl*) 200 Mg Tablet, 200 MG PO DAILY, #30 TAB TAKE Q ,,SAT WITH DIALYSIS 04/01/19 Montelukast Sodium* (Montelukast Sodium*) 10 Mg Tablet, 10 MG PO QHS, #30 TAB 04/01/19 [Nephro-Elieser] No Conflict Check, 1 TAB PO DAILY 04/01/19 Sacubitril/Valsartan (Entresto 24 mg-26 mg Tablet) 1 Each Tablet, 1 EACH PO BID, TAB 04/01/19 Midodrine* (Midodrine*) 5 Mg Tablet, 5 MG PO DAILY, TAB 04/01/19 Furosemide* (Furosemide*) 40 Mg Tablet, 40 MG PO DAILY, TAB 04/01/19 Atorvastatin Calcium* (Atorvastatin Calcium*) 20 Mg Tablet, 20 MG PO QHS, #30 TA B 04/01/19 Medications Current Medications Amiodarone HCl (Cordarone) 200 mg DAILY PO Last administered on 04/03/19at 09:11; Admin Dose 200 MG; Start 04/02/19 at 09:00 Aspirin (Halfprin) 81 mg DAILY PO Last administered on 04/03/19at 09:11; Admin Dose 81 MG; Start 04/02/19 at 09:00 Atorvastatin Calcium (Lipitor) 20 mg QHS PO Last administered on 04/02/19at 22:49; Admin Dose 20 MG; Start 04/01/19 at 21:00 Docusate Sodium (Colace) 100 mg BID PO Last administered on 04/03/19 09:11; Admin Dose 100 MG; Start 04/01/19 at 21:00 Midodrine (Proamatine) 5 mg DAILY PO Last administered on 04/03/19 09:11; Admin Dose 5 MG; Start 04/02/19 at 09:00 Montelukast Sodium (Singulair) 10 mg QHS PO Last administered on 04/02/19at 22:49; Admin Dose 10 MG; Start 04/01/19 at 21:00 Sevelamer Carbonate (Renvela) 1.6 gm BID WITH MEALS PO Last administered on 04/03/19 09:12; Admin Dose 1.6 GM; Start 04/01/19 at 21:00 Albuterol/ Ipratropium (Duoneb) 3 ml Q2H RESP THERAPY PRN NEB SHORTNESS OF BREATH; Start 04/01/19 at 21:00 Zolpidem Tartrate (Ambien) 5 mg QHS PRN PO INSOMNIA Last administered on 04/02/19 21:20; Admin Dose 5 MG; Start 04/01/19 at 21:00 Vancomycin HCl (Vanco Iv Per Pharmacy) VANCOMYCIN PER PHARMACY PER PROTOCOL XX ; Start 04/01/19 at 21:00 Cefepime HCl 50 ml @ 100 mls/hr Q24H IVPB Last administered on 04/03/19at 09:11; Admin Dose 100 MLS/HR; Start 04/02/19 at 09:00 Norepinephrine 250 ml @ 1.875 mls/ hr TITRATE IV Last administered on at 05:04; Admin Dose 26.25 MLS/HR; Start 04/02/19 at 02:30 Epoetin Jatinder-epbx (Retacrit (Esrd)) 4,000 unit AFTER DIALYSIS SC Last administered on 04/03/19at 01:07; Admin Dose 4,000 UNIT; Start 04/02/19 at 16:00 Sodium Chloride 1,000 ml @ 30 mls/hr Q24H IV Last administered on 04/03/19at 06:11; Admin Dose 30 MLS/HR; Start 04/02/19 at 12:30 Vancomycin HCl 250 ml @ 125 mls/hr ONCE IVPB ; Start 04/03/19 at 22:00; Stop 04/03/19 at 23:59 IV Flush (NS 10 ml) 10 ml PRN PRN IV IV PROTOCOL; Start 04/03/19 at 17:00 Allergies: Coded Allergies: No Known Allergy (Unverified , 04/01/19) Social History Smoking Status: Former smoker Exam/Review of Systems Vital Signs Vitals Vital Signs Date Temp Pulse Resp B/P (MAP) Pulse Ox O2 O2 Flow FiO2 Time Delivery Rate 04/03/19 100 25 99/51 (67) 94 16:30 04/03/19 97.7 Room Air 16:00 04/01/19 2.0 22:10 Intake and Output 04/02/19 04/02/19 04/03/19 1515:00 23:00 07:00 IntakeIntake Total 376.625 ml 227.85 ml 133.25 ml OutputOutput Total 0 ml 800 ml BalanceBalance 376.625 ml 227.85 ml -666.75 ml Exam Exam General: no acute distress HEENT: NC/AT. pupils are equal. round. NECK: no stridor. CV: RRR. systolic murmur; no gallop or rubs. PULM: no wheezing or rhonchi. GI: SOFT, NT, ND, no rebound or guarding Extremity: trace B/L LE edema. no clubbing. neuro: Drowsy oriented to person at least. Psych: calm rectal: deferred EKG shows ventricular paced rhythm Chest x-ray done 03/24/2019 shows: 1. New left-sided PICC in proximal SVC. 2. Persistent small left-sided pleural effusion with left lung base atelectasis/infiltrate. 3. Persistent patchy opacity of the right lung base. 4. Persistent cardiomegaly with mild vascular congestion Labs Result Diagram: 04/03/19 0400 04/03/19 0400 Results 24hrs Laboratory Tests Test 04/03/19 04:00 04/03/19 08:56 04/03/19 11:59 White Blood Count 28.6 H Red Blood Count 2.83 L Hemoglobin 9.0 L Hematocrit 29.2 L Mean Corpuscular Volume 103.2 H Mean Corpuscular Hemoglobin 31.8 Mean Corpuscular Hemoglobin Concent 30.8 L Red Cell Distribution Width 15.9 H Platelet Count 493 H Mean Platelet Volume 10.7 H Immature Granulocytes % 2.500 H Neutrophils % 90.7 H Lymphocytes % 2.3 L Monocytes % 4.4 Eosinophils % 0.0 Basophils % 0.1 Nucleated Red Blood Cells % 0.1 H Immature Granulocytes # 0.710 H Neutrophils # 26.0 H Lymphocytes # 0.7 L Monocytes # 1.3 H Eosinophils # 0.0 Basophils # 0.0 Nucleated Red Blood Cells # 0.0 Sodium Level 138 Potassium Level 4.5 Chloride Level 96 L Carbon Dioxide Level 22 Anion Gap 20 H Blood Urea Nitrogen 31 #H Creatinine 3.98 #H Est Glomerular Filtrat Rate mL/min Glucose Level 170 Calcium Level 8.7 Phosphorus Level 5.0 H Magnesium Level 2.2 Iron Level 23 L Total Iron Binding Capacity 137 L Percent Iron Saturation 17 L Random Vancomycin Level 13.0 Lactic Acid Level 2.7 *H 2.1 *H Procalcitonin 10.74 H Medications Medications Current Medications Amiodarone HCl (Cordarone) 200 mg DAILY PO Last administered on 04/03/19 09:11; Admin Dose 200 MG; Start 04/02/19 at 09:00 Aspirin (Halfprin) 81 mg DAILY PO Last administered on 04/03/19 09:11; Admin Dose 81 MG; Start 04/02/19 at 09:00 Atorvastatin Calcium (Lipitor) 20 mg QHS PO Last administered on 04/02/19 22:49; Admin Dose 20 MG; Start 04/01/19 at 21:00 Docusate Sodium (Colace) 100 mg BID PO Last administered on 04/03/19 09:11; Admin Dose 100 MG; Start 04/01/19 at 21:00 Midodrine (Proamatine) 5 mg DAILY PO Last administered on 04/03/19 09:11; Admin Dose 5 MG; Start 04/02/19 at 09:00 Montelukast Sodium (Singulair) 10 mg QHS PO Last administered on 04/02/19 22:49; Admin Dose 10 MG; Start 04/01/19 at 21:00 Sevelamer Carbonate (Renvela) 1.6 gm BID WITH MEALS PO Last administered on 04/03/19 09:12; Admin Dose 1.6 GM; Start 04/01/19 at 21:00 Albuterol/ Ipratropium (Duoneb) 3 ml Q2H RESP THERAPY PRN NEB SHORTNESS OF BREATH; Start 04/01/19 at 21:00 Zolpidem Tartrate (Ambien) 5 mg QHS PRN PO INSOMNIA Last administered on 04/02/19at 21:20; Admin Dose 5 MG; Start 04/01/19 at 21:00 Vancomycin HCl (Vanco Iv Per Pharmacy) VANCOMYCIN PER PHARMACY PER PROTOCOL XX ; Start 04/01/19 at 21:00 Cefepime HCl 50 ml @ 100 mls/hr Q24H IVPB Last administered on 04/03/19at 09:11; Admin Dose 100 MLS/HR; Start 04/02/19 at 09:00 Norepinephrine 250 ml @ 1.875 mls/ hr TITRATE IV Last administered on 04/03/19at 05:04; Admin Dose 26.25 MLS/HR; Start 04/02/19 at 02:30 Epoetin Jatinder-epbx (Retacrit (Esrd)) 4,000 unit AFTER DIALYSIS SC Last administered on 04/03/19at 01:07; Admin Dose 4,000 UNIT; Start 04/02/19 at 16:00 Sodium Chloride 1,000 ml @ 30 mls/hr Q24H IV Last administered on 04/03/19at 06:11; Admin Dose 30 MLS/HR; Start 04/02/19 at 12:30 Vancomycin HCl 250 ml @ 125 mls/hr ONCE IVPB ; Start 04/03/19 at 22:00; Stop 04/03/19 at 23:59 IV Flush (NS 10 ml) 10 ml PRN PRN IV IV PROTOCOL; Start 04/03/19 at 17:00 JOSE D SOLOMON MD Apr 03, 2019 17:36
[2019-04-03] MEDS: ATORVASTATIN 20 MG TAB PO SCH (20:20)
[2019-04-03] MEDS: MONTELUKAST 10 MG TAB PO SCH (20:21)
[2019-04-03] MEDS ORDERED: VANCOMYCIN 1 GM 250 ML IVPB SCH (22:00)
[2019-04-04] VITALS (78 sets, daily range): BP systolic 49–149; BP diastolic 18–105; PULSE 62–117; RESP 13–34
--- NOTE | 2019-04-04 07:25 | CONS ---
Consult Date/Type/Reason Admit Date/Time Apr 01, 2019 at 17:43 Initial Consult Date 04/03/19 Type of Consultation: cv Requesting Provider: ADA RNAGEL DO Date/Time of Note DATE: 04/04/19 TIME: 07:18 Subjective Cardiology follow-up progress note Subjective: Discussed with the staff. Telemetry was reviewed. Patient has remained in sinus rhythm. Patient remains in ICU with close monitoring. Patient has remained hypotensive and is on Levophed drip again No report of any chest pain or pressure Objective: General: no acute distress HEENT: NC/AT. pupils are equal. round. NECK: no stridor. CV: RRR. systolic murmur; no gallop or rubs. PULM: no wheezing or rhonchi. GI: SOFT, NT, ND, no rebound or guarding Extremity: trace B/L LE edema. no clubbing. neuro: Drowsy oriented to person at least. Psych: calm rectal: deferred EKG shows ventricular paced rhythm Chest x-ray done 03/24/2019 shows: 1. New left-sided PICC in proximal SVC. 2. Persistent small left-sided pleural effusion with left lung base atelectasis/infiltrate. 3. Persistent patchy opacity of the right lung base. 4. Persistent cardiomegaly with mild vascular congestion Objective Vitals Vital Signs Date Temp Pulse Resp B/P (MAP) Pulse Ox O2 O2 Flow FiO2 Time Delivery Rate 04/04/19 91 18 96/60 (72) Room Air 06:00 04/04/19 97.6 04:00 04/04/19 94 01:00 04/01/19 2.0 22:10 Intake and Output 04/03/19 04/03/19 04/04/19 1515:00 23:00 07:00 IntakeIntake Total 1339.5 ml 441.5 ml 320.2 ml OutputOutput Total 0 ml 0 ml 0 ml BalanceBalance 1339.5 ml 441.5 ml 320.2 ml Results/Medications Result Diagram: 04/04/19 0400 04/04/19 0400 Results 24 hrs Laboratory Tests Test 04/03/19 08:56 04/03/19 11:59 04/04/19 04:00 Lactic Acid Level 2.7 *H 2.1 *H Procalcitonin 10.74 H White Blood Count 16.5 #H Red Blood Count 2.63 L Hemoglobin 8.2 L Hematocrit 27.0 L Mean Corpuscular Volume 102.7 H Mean Corpuscular Hemoglobin 31.2 Mean Corpuscular Hemoglobin Concent 30.4 L Red Cell Distribution Width 16.1 H Platelet Count 310 # Mean Platelet Volume 10.7 H Immature Granulocytes % 1.600 H Neutrophils % 89.8 H Lymphocytes % 3.5 L Monocytes % 4.9 Eosinophils % 0.1 Basophils % 0.1 Nucleated Red Blood Cells % 0.0 Immature Granulocytes # 0.270 H Neutrophils # 14.8 H Lymphocytes # 0.6 L Monocytes # 0.8 Eosinophils # 0.0 Basophils # 0.0 Nucleated Red Blood Cells # 0.0 Sodium Level 136 Potassium Level 4.4 Chloride Level 98 Carbon Dioxide Level 20 L Anion Gap 18 H Blood Urea Nitrogen 50 H Creatinine 5.09 H Est Glomerular Filtrat Rate mL/min Glucose Level 257 H Calcium Level 8.8 Phosphorus Level 7.4 #H Magnesium Level 2.3 Home Meds Reported Medications Docusate Sodium* (Docusate Sodium*) 100 Mg Capsule, 100 MG PO BID, #60 CAP 04/01/19 Metoprolol Succinate* (Toprol XL*) 25 Mg Tab.sr.24h, 25 MG PO DAILY, #30 TAB 04/01/19 Aspirin* (Aspirin* EC) 81 Mg Tablet.dr, 81 MG PO DAILY, TAB 04/01/19 Fenofibrate, Micronized (Fenofibrate) 134 Mg Capsule, 134 MG PO DAILY, CAP 04/01/19 Sevelamer Carbonate* (Renvela*) 800 Mg Tablet, 1.6 GM PO BID, TAB 04/01/19 Amiodarone Hcl* (Amiodarone Hcl*) 200 Mg Tablet, 200 MG PO DAILY, #30 TAB TAKE Q ,TH,SAT WITH DIALYSIS 04/01/19 Montelukast Sodium* (Montelukast Sodium*) 10 Mg Tablet, 10 MG PO QHS, #30 TAB 04/01/19 [Nephro-Elieser] No Conflict Check, 1 TAB PO DAILY 04/01/19 Sacubitril/Valsartan (Entresto 24 mg-26 mg Tablet) 1 Each Tablet, 1 EACH PO BID, TAB 04/01/19 Midodrine* (Midodrine*) 5 Mg Tablet, 5 MG PO DAILY, TAB 04/01/19 Furosemide* (Furosemide*) 40 Mg Tablet, 40 MG PO DAILY, TAB 04/01/19 Atorvastatin Calcium* (Atorvastatin Calcium*) 20 Mg Tablet, 20 MG PO QHS, #30 TAB 04/01/19 Medications Current Medications Amiodarone HCl (Cordarone) 200 mg DAILY PO Last administered on 04/03/19 09:11; Admin Dose 200 MG; Start 04/02/19 at 09:00 Aspirin (Halfprin) 81 mg DAILY PO Last administered on 04/03/19 09:11; Admin Dose 81 MG; Start 04/02/19 at 09:00 Atorvastatin Calcium (Lipitor) 20 mg QHS PO Last administered on 04/03/19 20:20; Admin Dose 20 MG; Start 04/01/19 at 21:00 Docusate Sodium (Colace) 100 mg BID PO Last administered on 04/03/19 20:21; Admin Dose 100 MG; Start 04/01/19 at 21:00 Midodrine (Proamatine) 5 mg DAILY PO Last administered on 04/03/19at 09:11; Admin Dose 5 MG; Start 04/02/19 at 09:00 Montelukast Sodium (Singulair) 10 mg QHS PO Last administered on 04/03/19 20:21; Admin Dose 10 MG; Start 04/01/19 at 21:00 Sevelamer Carbonate (Renvela) 1.6 gm BID WITH MEALS PO Last administered on 04/03/19at 17:50; Admin Dose 1.6 GM; Start 04/01/19 at 21:00 Albuterol/ Ipratropium (Duoneb) 3 ml Q2H RESP THERAPY PRN NEB SHORTNESS OF BREATH; Start 04/01/19 at 21:00 Zolpidem Tartrate (Ambien) 5 mg QHS PRN PO INSOMNIA Last administered on 04/02/19 21:20; Admin Dose 5 MG; Start 04/01/19 at 21:00 Vancomycin HCl (Vanco Iv Per Pharmacy) VANCOMYCIN PER PHARMACY PER PROTOCOL XX ; Start 04/01/19 at 21:00 Cefepime HCl 50 ml @ 100 mls/hr Q24H IVPB Last administered on 04/03/19at 09:11; Admin Dose 100 MLS/HR; Start 04/02/19 at 09:00 Norepinephrine 250 ml @ 1.875 mls/ hr TITRATE IV Last administered on 04/03/19at 05:04; Admin Dose 26.25 MLS/HR; Start 04/02/19 at 02:30 Epoetin Jatinder-epbx (Retacrit (Esrd)) 4,000 unit AFTER DIALYSIS SC Last administered on 04/03/19at 01:07; Admin Dose 4,000 UNIT; Start 04/02/19 at 16:00 Sodium Chloride 1,000 ml @ 30 mls/hr Q24H IV Last administered on 04/03/19at 23:52; Admin Dose 30 MLS/HR; Start 04/02/19 at 12:30 IV Flush (NS 10 ml) 10 ml PRN PRN IV IV PROTOCOL; Start 04/03/19 at 17:00 Assessment/Plan Hospital Course (Demo Recall) Mildly abnormal troponin secondary to sepsis renal failure etc. Sepsis/pneumonia Pneumonia History of hepatocellular cancer Renal failure dialysis dependent History of arrhythmia probably sick sinus syndrome versus heart block status post permanent pacemaker Encephalopathy Paroxysmal atrial fibrillation Recommendations: Continue with aspirin as noted no active bleeding is noted Antibiotic management as per internal medicine and consultants Continue to be hemodialysis as tolerated Unable to tolerate beta-damian due to his low blood pressure Milronone would be continued levophed as needed Thank you for this referral. We will continue to follow along with you JOSE D SOLOMON MD [facility] JOSE D SOLOMON MD Apr 04, 2019 07:25
[2019-04-04] MEDS: SEVELAMER CARBONATE 0.8 GM PKT PO SCH ×2 (07:35→16:54)
[2019-04-04] MEDS: AMIODARONE 200 MG TAB PO SCH (08:11)
[2019-04-04] MEDS: DOCUSATE SODIUM 100 MG CAP PO SCH ×2 (08:11→20:05)
[2019-04-04] MEDS: MIDODRINE 5 MG TAB PO SCH (08:12)
[2019-04-04] MEDS: ASPIRIN (EC) 81 MG TAB PO SCH (08:12)
[2019-04-04] MEDS: CEFEPIME 1GM/50 ML (PMX) 50 ML IVPB SCH (08:24)
[2019-04-04] MEDS: NORepinephrine 8MG/250 ML (PMX 250 ML IV SCH (08:57)
--- NOTE | 2019-04-04 09:22 | CONS ---
Assessment/Plan Assessment/Plan Assessment/Plan (Daily) Patient is on Levophed at 4.5 mics per minute. Chest x-ray showing cardiomegaly with small left pleural effusion with mild CHF pattern. Assessment recommendations; 1. Patient admitted with septic shock from dialysis center, currently on appropriate antimicrobial regimen. Patient has gram-negative bacteremia with the most recent cultures being negative. Currently on appropriate antimicrobial regimen. 2. Improving shock. 3. Apparent history of hepatocellular carcinoma with peritoneal carcinomatosis. 4. Chronic renal failure, hemodialysis dependent. 5. History of cardiac arrhythmia, status post pacemaker placement in the past. 6. Chronic anemia. 7. Encephalopathy with slight interval improvement. Continue current supportive care. Antibiotics per ID recommendations. Hemodialysis per registered travel nurse. Consultation Date/Type/Reason Admit Date/Time Apr 01, 2019 at 17:43 Initial Consult Date 04/03/19 Type of Consult Pulmonary/critical care Patient is a pleasant 83-year-old gentleman who was sent over from dialysis center because of hypotension. Patient been diagnosed with sepsis, has been adequately fluid resuscitated and currently on Levophed drip. Patient remains completely awake and alert. Denies any shortness of breath, fever, chest pain, nausea vomiting. Past medical history; 1. End-stage renal disease, on hemodialysis. 2. Liver cancer. 3. Anemia of chronic disease. 4. Chronic atrial fibrillation. History of pacemaker placement. 5. CHF. Medications; reviewed. Allergies; none. Family history; noncontributory. Occupational history; noncontributory. Review of systems; denies any headache, seizures. Shortness of breath has improved. Denies any abdominal pain, nausea vomiting. Denies any edema. Any fever or chills. Denies any seizures. General exam; elderly male, laying comfortably in bed on room air. Currently in no distress. Requesting Provider: ADA RANGEL DO Date/Time of Note DATE: 04/04/19 TIME: : 24 HR Interval Summary Free Text/Dictation Patient's condition is improving. Remains awake but still lethargic. General exam; elderly male, awake, currently no distress. Exam/Review of Systems Exam Vitals Vital Signs Date Temp Pulse Resp B/P (MAP) Pulse Ox O2 O2 Flow FiO2 Time Delivery Rate 04/04/19 96 08:00 04/04/19 21 102/45 08:00 (64) 04/04/19 Room Air 07:45 04/04/19 97.6 04:00 04/04/19 94 01:00 04/01/19 2.0 22:10 Intake and Output 04/03/19 04/03/19 04/04/19 1515:00 23:00 07:00 IntakeIntake Total 1339.5 ml 441.5 ml 320.2 ml OutputOutput Total 0 ml 0 ml 0 ml BalanceBalance 1339.5 ml 441.5 ml 320.2 ml Exam H EENT exam; supple neck, positive JVD. No lymphadenopathy. Midline trachea. No thyromegaly. Patient is edentulous. On room air. Chest exam; diminished breath sounds bilaterally. S1-S2 audible, no murmurs. Regular rhythm. Pacemaker in left chest wall. Abdomen exam; soft, mildly protuberant. Nontender. No organomegaly. Bowel sounds audible. Extremity exam; no peripheral edema. [employer] exam; patient awake follows simple commands but exhibiting generalized weakness and mild lethargy. Results Result Diagram: 04/04/19 0400 04/04/19 0400 Results 24hrs Laboratory Tests Test 04/03/19 11:59 04/04/19 04:00 04/04/19 07:56 Lactic Acid Level 2.1 *H 1.3 White Blood Count 16.5 #H Red Blood Count 2.63 L Hemoglobin 8.2 L Hematocrit 27.0 L Mean Corpuscular Volume 102.7 H Mean Corpuscular Hemoglobin 31.2 Mean Corpuscular Hemoglobin Concent 30.4 L Red Cell Distribution Width 16.1 H Platelet Count 310 # Mean Platelet Volume 10.7 H Immature Granulocytes % 1.600 H Neutrophils % 89.8 H Lymphocytes % 3.5 L Monocytes % 4.9 Eosinophils % 0.1 Basophils % 0.1 Nucleated Red Blood Cells % 0.0 Immature Granulocytes # 0.270 H Neutrophils # 14.8 H Lymphocytes # 0.6 L Monocytes # 0.8 Eosinophils # 0.0 Basophils # 0.0 Nucleated Red Blood Cells # 0.0 Sodium Level 136 Potassium Level 4.4 Chloride Level 98 Carbon Dioxide Level 20 L Anion Gap 18 H Blood Urea Nitrogen 50 H Creatinine 5.09 H Est Glomerular Filtrat Rate mL/min Glucose Level 257 H Calcium Level 8.8 Phosphorus Level 7.4 #H Magnesium Level 2.3 Medications Medication Current Medications Amiodarone HCl (Cordarone) 200 mg DAILY PO Last administered on 04/03/19 09:11; Admin Dose 200 MG; Start 04/02/19 at 09:00 Aspirin (Halfprin) 81 mg DAILY PO Last administered on 04/03/19 09:11; Admin Dose 81 MG; Start 04/02/19 at 09:00 Atorvastatin Calcium (Lipitor) 20 mg QHS PO Last administered on 04/03/19 20:20; Admin Dose 20 MG; Start 04/01/19 at 21:00 Docusate Sodium (Colace) 100 mg BID PO Last administered on 04/03/19 20:21; Admin Dose 100 MG; Start 04/01/19 at 21:00 Midodrine (Proamatine) 5 mg DAILY PO Last administered on 04/03/19 09:11; Admin Dose 5 MG; Start 04/02/19 at 09:00 Montelukast Sodium (Singulair) 10 mg QHS PO Last administered on 04/03/19 20:21; Admin Dose 10 MG; Start 04/01/19 at 21:00 Sevelamer Carbonate (Renvela) 1.6 gm BID WITH MEALS PO Last administered on 04/03/19 17:50; Admin Dose 1.6 GM; Start 04/01/19 at 21:00 Albuterol/ Ipratropium (Duoneb) 3 ml Q2H RESP THERAPY PRN NEB SHORTNESS OF BREATH; Start 04/01/19 at 21:00 Zolpidem Tartrate (Ambien) 5 mg QHS PRN PO INSOMNIA Last administered on 04/02/19 21:20; Admin Dose 5 MG; Start 04/01/19 at 21:00 Vancomycin HCl (Vanco Iv Per Pharmacy) VANCOMYCIN PER PHARMACY PER PROTOCOL XX ; Start 04/01/19 at 21:00 Cefepime HCl 50 ml @ 100 mls/hr Q24H IVPB Last administered on 04/04/19 08:24; Admin Dose 100 MLS/HR; Start 04/02/19 at 09:00 Norepinephrine 250 ml @ 1.875 mls/ hr TITRATE IV Last administered on 04/04/19 08:57; Admin Dose 9.375 MLS/HR; Start 04/02/19 at 02:30 Epoetin Jatinder-epbx (Retacrit (Esrd)) 4,000 unit AFTER DIALYSIS SC Last administered on 04/03/19at 01:07; Admin Dose 4,000 UNIT; Start 04/02/19 at 16:00 Sodium Chloride 1,000 ml @ 30 mls/hr Q24H IV Last administered on 04/03/19at 23:52; Admin Dose 30 MLS/HR; Start 04/02/19 at 12:30 IV Flush (NS 10 ml) 10 ml PRN PRN IV IV PROTOCOL; Start 04/03/19 at 17:00 NANCY LIRA Apr 04, 2019 09:22
--- NOTE | 2019-04-04 13:28 | CONS ---
Assessment/Plan Assessment/Plan Hospital Course (Demo Recall) In HD, looks comfortable, no fevers, on Levophed gtt at 2 mcg/min Indwelling's right upper extremity AV fistula Procalcitonin 10.74 lactic acid 2.7 Chest x-ray on admission revealed patchy right basilar atelectasis Microbiology: Blood cultures + GNR Antimicrobials: Patient is on cefepime and vancomycin Physical examination: This is an obese well-developed chronically ill elderly Hebrew man who is in no distress. Head atraumatic normocephalic neck is supple chest rise symmetrical breath sounds diminished bases. Heart: S1-S2. Tachycardic abdomen soft obese bowel sounds hypoactive extremities without cyanosis, trace edema Assessment: 1. Sepsis with shock 2. GNR bacteremia ?source 3. End-stage renal disease, hemodialysis dependent 4. Recently diagnosed hepatocellular carcinoma 5. Coronary artery disease status post permanent pacemaker 6. Diabetes 7. Atrial fibrillation Plan: Clinically unchanged, continue antibiotics, follow final cx's, prognosis poor Consultation Date/Type/Reason Admit Date/Time Apr 01, 2019 at 17:43 Initial Consult Date 04/03/19 Type of Consult id Requesting Provider: ADA RANGEL DO Date/Time of Note DATE: 04/04/19 TIME: 13:25 Exam/Review of Systems Exam Vitals Vital Signs Date Temp Pulse Resp B/P (MAP) Pulse Ox O2 O2 Flow FiO2 Time Delivery Rate 04/04/19 71 12:45 04/04/19 97.8 18 96/44 (61) 100 Room Air 12:00 04/01/19 2.0 22:10 Intake and Output 04/03/19 04/03/19 04/04/19 1515:00 23:00 07:00 IntakeIntake Total 1339.5 ml 441.5 ml 320.2 ml OutputOutput Total 0 ml 0 ml 0 ml BalanceBalance 1339.5 ml 441.5 ml 320.2 ml Results Result Diagram: 04/04/190 04/04/19 0400 Results 24hrs Laboratory Tests Test 04/04/19 04:00 04/04/19 07:55 04/04/19 07:56 04/04/19 09:44 White Blood Count 16.5 #H Red Blood Count 2.63 L Hemoglobin 8.2 L Hematocrit 27.0 L Mean Corpuscular 102.7 H Volume Mean Corpuscular 31.2 Hemoglobin Mean Corpuscular 30.4 L Hemoglobin Concent Red Cell 16.1 H Distribution Width Platelet Count 310 # Mean Platelet Volume 10.7 H Immature 1.600 H Granulocytes % Neutrophils % 89.8 H Lymphocytes % 3.5 L Monocytes % 4.9 Eosinophils % 0.1 Basophils % 0.1 Nucleated Red Blood 0.0 Cells % Immature 0.270 H Granulocytes # Neutrophils # 14.8 H Lymphocytes # 0.6 L Monocytes # 0.8 Eosinophils # 0.0 Basophils # 0.0 Nucleated Red Blood 0.0 Cells # Sodium Level 136 Potassium Level 4.4 Chloride Level 98 Carbon Dioxide Level 20 L Anion Gap 18 H Blood Urea Nitrogen 50 H Creatinine 5.09 H Est Glomerular Filtrat Rate mL/min Glucose Level 257 H Calcium Level 8.8 Phosphorus Level 7.4 #H Magnesium Level 2.3 Procalcitonin 8.51 H Lactic Acid Level 1.3 Stool Occult Blood POSITIVE Medications Medication Current Medications Amiodarone HCl (Cordarone) 200 mg DAILY PO Last administered on 04/03/19 09:11; Admin Dose 200 MG; Start 04/02/19 at 09:00 Aspirin (Halfprin) 81 mg DAILY PO Last administered on 04/03/19 09:11; Admin Dose 81 MG; Start 04/02/19 at 09:00 Atorvastatin Calcium (Lipitor) 20 mg QHS PO Last administered on 04/03/19 20:20; Admin Dose 20 MG; Start 04/01/19 at 21:00 Docusate Sodium (Colace) 100 mg BID PO Last administered on 04/03/19 20:21; Admin Dose 100 MG; Start 04/01/19 at 21:00 Midodrine (Proamatine) 5 mg DAILY PO Last administered on 04/03/19 09:11; Admin Dose 5 MG; Start 04/02/19 at 09:00 Montelukast Sodium (Singulair) 10 mg QHS PO Last administered on 04/03/19 20:21; Admin Dose 10 MG; Start 04/01/19 at 21:00 Sevelamer Carbonate (Renvela) 1.6 gm BID WITH MEALS PO Last administered on 04/03/19 17:50; Admin Dose 1.6 GM; Start 04/01/19 at 21:00 Albuterol/ Ipratropium (Duoneb) 3 ml Q2H RESP THERAPY PRN NEB SHORTNESS OF BREATH; Start 04/01/19 at 21:00 Zolpidem Tartrate (Ambien) 5 mg QHS PRN PO INSOMNIA Last administered on 04/02/19at 21:20; Admin Dose 5 MG; Start 04/01/19 at 21:00 Vancomycin HCl (Vanco Iv Per Pharmacy) VANCOMYCIN PER PHARMACY PER PROTOCOL XX ; Start 04/01/19 at 21:00 Cefepime HCl 50 ml @ 100 mls/hr Q24H IVPB Last administered on 04/04/19at 08:24; Admin Dose 100 MLS/HR; Start 04/02/19 at 09:00 Norepinephrine 250 ml @ 1.875 mls/ hr TITRATE IV Last administered on 04/04/19at 08:57; Admin Dose 9.375 MLS/HR; Start 04/02/19 at 02:30 Sodium Chloride 1,000 ml @ 30 mls/hr Q24H IV Last administered on 04/03/19at 23:52; Admin Dose 30 MLS/HR; Start 04/02/19 at 12:30 IV Flush (NS 10 ml) 10 ml PRN PRN IV IV PROTOCOL; Start 04/03/19 at 17:00 Epoetin Jatinder-epbx (Retacrit (Esrd)) 10,000 unit AFTER EACH DIALYSIS SC ; Start 04/04/19 at 16:00 JOAO RAHMAN NP Apr 04, 2019 13:28
--- NOTE | 2019-04-04 14:38 | PN ---
DATE: 04/04/2019 SUBJECTIVE: The patient remains on pressor support. The patient remains confused. No other events noted. No hemoptysis, hematemesis, hematochezia. Please note I did speak with the patient's son abo ut any history of possible liver cancer or carcinomatosis. Per family, the patient has no known hist ory of cancer or malignancy. OBJECTIVE: VITAL SIGNS: Blood pressure 130/105, respiration 18, pulse 91, temperature 98.6. HEENT: Head is normocephalic. NECK: Supple. HEART: Regular rate. LUNGS: Show diminished breath sounds at the base. ABDOMEN: Soft, nontender to palpation without rebound or guarding. EXTREMITIES: Negative for clubbing, cyanosis, no edema. DERMATOLOGIC: No rashes. MUSCULOSKELETAL: No joint effusion. NEUROLOGIC: No change in exam. MEDICATIONS: The patient's medications have been reviewed. LABORATORY DATA: Has been reviewed. MEDICATIONS: Have been reviewed. ASSESSMENT AND PLAN: 1. Septic shock. Underlying source unclear, possible pneumonia. Questionable intraabdominal source . The patient's repeat cultures have been negative to date. Repeat chest x-ray does show evidence o f infiltrate. The patient remains on pressor support and antibiotic therapy. Plan at this point is to continue current treatment plan. Will get a CT scan of abdomen and pelvis to rule out possible in traabdominal source. Will continue to monitor closely. 2. End-stage renal disease. Plan for hemodialysis today. We will dialyze for 3 hours 3k bath, calc ium 2.5. 3. Anemia. Monitor hemoglobin and hematocrit levels. Will give Epogen as needed. 4. Mineral bone disorder, monitor calcium and phosphorus levels. 5. Metabolic acidosis secondary to end-stage renal disease, improving. 6. Non-ST elevation myocardial infarction, type 2. Continue to monitor. Follow up with cardiology. 7. Diabetes. Continue current insulin regimen. 8. Arrhythmia history of atrial fibrillation. The patient is on amiodarone. Continue to monitor. 9. Volume overload. Continue medical management. Continue ultrafiltration dialysis. 10. Acute encephalopathy, etiology is toxic metabolic. 11. Questionable history of hepatocellular carcinoma. Please note I spoke with the patient's family in detail. They deny any known history of hepatocellular carcinoma or any malignancy. The patient is pending a CT scan of abdomen and pelvis. Will continue to monitor. Please note I spent over 30 minutes of critical care time with this patient. Dictated By: ADA MORENO/CORNELIA Conf#: [id number] DID#: [id number] CC: DYLAN GREENE MD;*EndCC*
[2019-04-04] MEDS ORDERED: SOD CHLORIDE 0.9% 0 ML ONE (14:46)
[2019-04-04] MEDS ORDERED: IODIXANOL LOCM 100 ML BTL ONE (14:46)
[2019-04-04] MEDS ORDERED: EPOETIN 2000 UNITS/ML SYG (NICU) SC SCH (16:00)
[2019-04-04] MEDS: ATORVASTATIN 20 MG TAB PO SCH (20:06)
[2019-04-04] MEDS: MONTELUKAST 10 MG TAB PO SCH (20:06)
[2019-04-04] MEDS: BALSAM PERU/CASTOR OIL 60 GM TUBE TOP SCH (20:32)
[2019-04-05] VITALS (67 sets, daily range): BP systolic 87–148; BP diastolic 22–110; PULSE 79–112; RESP 14–32
--- NOTE | 2019-04-05 06:06 | CONS ---
Consult Date/Type/Reason Admit Date/Time Apr 01, 2019 at 17:43 Initial Consult Date 04/03/19 Type of Consultation: cv Requesting Provider: ADA RANGEL DO Date/Time of Note DATE: 04/05/19 TIME: 06:05 Subjective Cardiology follow-up progress note Subjective: Discussed with the staff. Telemetry was reviewed. Patient has remained in sinus rhythm. Patient remains in ICU with close monitoring. Patient has remained hypotensive and is on Levophed drip again No report of any chest pain or pressure Has been confused intermittently wants to go home Objective: General: no acute distress HEENT: NC/AT. pupils are equal. round. NECK: no stridor. CV: RRR. systolic murmur; no gallop or rubs. PULM: no wheezing or rhonchi. GI: SOFT, NT, ND, no rebound or guarding Extremity: trace B/L LE edema. no clubbing. neuro: Drowsy oriented to person at least. Psych: calm rectal: deferred EKG shows ventricular paced rhythm Chest x-ray done 03/24/2019 shows: 1. New left-sided PICC in proximal SVC. 2. Persistent small left-sided pleural effusion with left lung base atelectasis/infiltrate. 3. Persistent patchy opacity of the right lung base. 4. Persistent cardiomegaly with mild vascular congestion CT 1. Again noted is severe dilatation of left intrahepatic biliary ducts. No gross evidence of hepatic mass is seen, though sensitivity is markedly limited without IV contrast. Findings remain concerning for obstructive mass in the central left hepatic lobe, as described in the prior CT report. 2. Findings compatible with peritoneal carcinomatosis. Moderate ascites, grossly stable. 3. Stable mild cardiomegaly. Coronary arterial and aortoiliac atherosclerotic calcifications. 4. Mild to moderate bilateral pleural effusions, grossly stable. Bibasilar atelectasis. 5. Cholelithiasis, without evidence for cholecystitis. 6. Chronic bilateral renal cortical thinning and atrophy, unchanged. Objective Vitals Vital Signs Date Temp Pulse Resp B/P (MAP) Pulse Ox O2 O2 Flow FiO2 Time Delivery Rate 04/05/19 94 23 90/45 (60) 05:45 04/05/19 99 05:15 04/05/19 Room Air 05:00 04/05/19 98.9 04:00 04/01/19 2.0 22:10 Intake and Output 04/04/19 04/04/19 04/05/19 1515:00 23:00 07:00 IntakeIntake Total 157.495 ml 28.125 ml 10 ml OutputOutput Total 2600 ml 0 ml 0 ml BalanceBalance -2442.505 ml 28.125 ml 10 ml Results/Medications Result Diagram: 04/05/19 0500 04/05/19 0500 Results 24 hrs Laboratory Tests Test 04/04/19 07:55 04/04/19 07:56 04/04/19 09:44 04/05/19 00:37 Procalcitonin 8.51 H Lactic Acid Level 1.3 Stool Occult Blood POSITIVE Potassium Level 4.3 Magnesium Level 2.4 Test 04/05/19 05:00 White Blood Count 17.6 H Red Blood Count 2.85 L Hemoglobin 8.7 L Hematocrit 29.3 L Mean Corpuscular 102.8 H Volume Mean Corpuscular 30.5 Hemoglobin Mean Corpuscular 29.7 L Hemoglobin Concent Red Cell 16.3 H Distribution Width Platelet Count 275 Mean Platelet Volume 10.5 H Immature 2.400 H Granulocytes % Neutrophils % 85.0 H Lymphocytes % 4.8 L Monocytes % 7.6 Eosinophils % 0.1 Basophils % 0.1 Nucleated Red Blood 0.1 H Cells % Immature 0.420 H Granulocytes # Neutrophils # 15.0 H Lymphocytes # 0.8 Monocytes # 1.3 H Eosinophils # 0.0 Basophils # 0.0 Nucleated Red Blood 0.0 Cells # Sodium Level 140 Potassium Level 4.2 Chloride Level 99 Carbon Dioxide Level 19 L Anion Gap 22 H Blood Urea Nitrogen 37 #H Creatinine 4.26 H Est Glomerular Filtrat Rate mL/min Glucose Level 233 H Calcium Level 8.9 Phosphorus Level 6.0 H Magnesium Level 2.3 Home Meds Reported Medications Docusate Sodium* (Docusate Sodium*) 100 Mg Capsule, 100 MG PO BID, #60 CAP 04/01/19 Metoprolol Succinate* (Toprol XL*) 25 Mg Tab.sr.24h, 25 MG PO DAILY, #30 TAB 04/01/19 Aspirin* (Aspirin* EC) 81 Mg Tablet.dr, 81 MG PO DAILY, TAB 04/01/19 Fenofibrate, Micronized (Fenofibrate) 134 Mg Capsule, 134 MG PO DAILY, CAP 04/01/19 Sevelamer Carbonate* (Renvela*) 800 Mg Tablet, 1.6 GM PO BID, TAB 04/01/19 Amiodarone Hcl* (Amiodarone Hcl*) 200 Mg Tablet, 200 MG PO DAILY, #30 TAB TAKE Q TUES,THURS,SAT WITH DIALYSIS 04/01/19 Montelukast Sodium* (Montelukast Sodium*) 10 Mg Tablet, 10 MG PO QHS, #30 TAB 04/01/19 [Nephro-Elieser] No Conflict Check, 1 TAB PO DAILY 04/01/19 Sacubitril/Valsartan (Entresto 24 mg-26 mg Tablet) 1 Each Tablet, 1 EACH PO BID, TAB 04/01/19 Midodrine* (Midodrine*) 5 Mg Tablet, 5 MG PO DAILY, TAB 04/01/19 Furosemide* (Furosemide*) 40 Mg Tablet, 40 MG PO DAILY, TAB 04/01/19 Atorvastatin Calcium* (Atorvastatin Calcium*) 20 Mg Tablet, 20 MG PO QHS, #30 TAB 04/01/19 Medications Current Medications Amiodarone HCl (Cordarone) 200 mg DAILY PO Last administered on 04/03/19at 09:11; Admin Dose 200 MG; Start 04/02/19 at 09:00 Aspirin (Halfprin) 81 mg DAILY PO Last administered on 04/03/19at 09:11; Admin Dose 81 MG; Start 04/02/19 at 09:00 Atorvastatin Calcium (Lipitor) 20 mg QHS PO Last administered on 04/03/19at 20:20; Admin Dose 20 MG; Start 04/01/19 at 21:00 Docusate Sodium (Colace) 100 mg BID PO Last administered on 04/03/19at 20:21; Admin Dose 100 MG; Start 04/01/19 at 21:00 Midodrine (Proamatine) 5 mg DAILY PO Last administered on 04/03/19at 09:11; Admin Dose 5 MG; Start 04/02/19 at 09:00 Montelukast Sodium (Singulair) 10 mg QHS PO Last administered on 04/03/19at 20:21; Admin Dose 10 MG; Start 04/01/19 at 21:00 Sevelamer Carbonate (Renvela) 1.6 gm BID WITH MEALS PO Last administered on 04/03/19at 17:50; Admin Dose 1.6 GM; Start 04/01/19 at 21:00 Albuterol/ Ipratropium (Duoneb) 3 ml Q2H RESP THERAPY PRN NEB SHORTNESS OF BREATH; Start 04/01/19 at 21:00 Zolpidem Tartrate (Ambien) 5 mg QHS PRN PO INSOMNIA Last administered on 04/02/19at 21:20; Admin Dose 5 MG; Start 04/01/19 at 21:00 Vancomycin HCl (Vanco Iv Per Pharmacy) VANCOMYCIN PER PHARMACY PER PROTOCOL XX ; Start 04/01/19 at 21:00 Cefepime HCl 50 ml @ 100 mls/hr Q24H IVPB Last administered on 04/04/19at 08:24; Admin Dose 100 MLS/HR; Start 04/02/19 at 09:00 Norepinephrine 250 ml @ 1.875 mls/ hr TITRATE IV Last administered on 04/04/19at 08:57; Admin Dose 9.375 MLS/HR; Start 04/02/19 at 02:30 Sodium Chloride 1,000 ml @ 30 mls/hr Q24H IV Last administered on 04/03/19at 23:52; Admin Dose 30 MLS/HR; Start 04/02/19 at 12:30 IV Flush (NS 10 ml) 10 ml PRN PRN IV IV PROTOCOL; Start 04/03/19 at 17:00 Epoetin Jatinder-epbx (Retacrit (Esrd)) 10,000 unit AFTER EACH DIALYSIS SC ; Start 04/04/19 at 16:00 Assessment/Plan Hospital Course (Demo Recall) Mildly abnormal troponin secondary to sepsis renal failure etc. Sepsis/pneumonia GNR bacteremia Pneumonia History of hepatocellular cancer Renal failure dialysis dependent History of arrhythmia probably sick sinus syndrome versus heart block status post permanent pacemaker Encephalopathy Paroxysmal atrial fibrillation Recommendations: Continue with aspirin as noted no active bleeding is noted Antibiotic management as per internal medicine and consultants Continue to be hemodialysis as tolerated Unable to tolerate beta-damian due to his low blood pressure Milronone would be continued levophed as needed Consider GI consultation Thank you for this referral. We will continue to follow along with you JOSE D SOLOMON MD [facility] JOSE D SOLOMON MD Apr 05, 2019 06:06
[2019-04-05] MEDS: SEVELAMER CARBONATE 0.8 GM PKT PO SCH ×2 (07:25→18:20)
[2019-04-05] MEDS: DOCUSATE SODIUM 100 MG CAP PO SCH ×2 (09:00→20:30)
[2019-04-05] MEDS: ASPIRIN (EC) 81 MG TAB PO SCH (09:00)
--- NOTE | 2019-04-05 09:13 | CONS ---
Assessment/Plan Assessment/Plan Assessment/Plan (Daily) Patient is currently on Levophed at 2 mics per minute. Assessment and recommendations; 1. Patient with history of liver cancer admitted with sepsis due to gram- negative bacteremia. Currently on appropriate antimicrobial regimen. Most recent cultures are negative so far. 2. Improving hypotension, currently on low-dose Levophed drip. 3. End-stage renal disease, on hemodialysis. 4. Prior history of pacemaker placement due to cardiac arrhythmia. 5. Bilateral pleural effusions. Continue current supportive care. Hemodialysis per public affairs officer. Wean down Levophed as tolerated. Most likely with ongoing hemodialysis pleural effusions will resolve. Consultation Date/Type/Reason Admit Date/Time Apr 01, 2019 at 17:43 Initial Consult Date 04/03/19 Type of Consult Pulmonary/critical care Patient is a pleasant 83-year-old gentleman who was sent over from dialysis center because of hypotension. Patient been diagnosed with sepsis, has been adequately fluid resuscitated and currently on Levophed drip. Patient remains completely awake and alert. Denies any shortness of breath, fever, chest pain, nausea vomiting. Past medical history; 1. End-stage renal disease, on hemodialysis. 2. Liver cancer. 3. Anemia of chronic disease. 4. Chronic atrial fibrillation. History of pacemaker placement. 5. CHF. Medications; reviewed. Allergies; none. Family history; noncontributory. Occupational history; noncontributory. Review of systems; denies any headache, seizures. Shortness of breath has improved. Denies any abdominal pain, nausea vomiting. Denies any edema. Any fever or chills. Denies any seizures. General exam; elderly male, laying comfortably in bed on room air. Currently in no distress. Requesting Provider: ADA RANGEL DO Date/Time of Note DATE: 04/05/19 TIME: 09:11 24 HR Interval Summary Free Text/Dictation Patient's condition is improving gradually. Requiring low-dose Levophed for hypotension. General exam; elderly male, awake and appropriately responsive. Currently in no distress. On room air. Exam/Review of Systems Exam Vitals Vital Signs Date Temp Pulse Resp B/P (MAP) Pulse Ox O2 O2 Flow FiO2 Time Delivery Rate 04/05/19 89 08:00 04/05/19 21 124/58 06:45 (80) 04/05/19 96 06:30 04/05/19 Room Air 05:00 04/05/19 98.9 04:00 04/01/19 2.0 22:10 Intake and Output 04/04/19 04/04/19 04/05/19 1515:00 23:00 07:00 IntakeIntake Total 157.495 ml 28.125 ml 10 ml OutputOutput Total 2600 ml 0 ml 0 ml BalanceBalance -2442.505 ml 28.125 ml 10 ml Exam H EENT exam; supple neck, no JVD. No lymphadenopathy. Midline trachea. No thyromegaly. Patient is edentulous. No neck masses. Chest exam; diminished but clear breath sounds. S1-S2 audible, no murmurs. There is a pacemaker in left chest wall. Rhythm is paced. Abdomen exam; soft, nontender. No organomegaly. Bowel sounds are audible. Extremity exam; no edema. HAND CLOTH EXAMINER exam; patient awake follows simple commands but exhibiting generalized weakness. Results Result Diagram: 04/05/19 0500 04/05/19 0500 Results 24hrs Laboratory Tests Test 04/04/19 09:44 04/05/19 00:37 04/05/19 05:00 Stool Occult Blood POSITIVE Potassium Level 4.3 4.2 Magnesium Level 2.4 2.3 White Blood Count 17.6 H Red Blood Count 2.85 L Hemoglobin 8.7 L Hematocrit 29.3 L Mean Corpuscular Volume 102.8 H Mean Corpuscular Hemoglobin 30.5 Mean Corpuscular Hemoglobin Concent 29.7 L Red Cell Distribution Width 16.3 H Platelet Count 275 Mean Platelet Volume 10.5 H Immature Granulocytes % 2.400 H Neutrophils % 85.0 H Lymphocytes % 4.8 L Monocytes % 7.6 Eosinophils % 0.1 Basophils % 0.1 Nucleated Red Blood Cells % 0.1 H Immature Granulocytes # 0.420 H Neutrophils # 15.0 H Lymphocytes # 0.8 Monocytes # 1.3 H Eosinophils # 0.0 Basophils # 0.0 Nucleated Red Blood Cells # 0.0 Sodium Level 140 Chloride Level 99 Carbon Dioxide Level 19 L Anion Gap 22 H Blood Urea Nitrogen 37 #H Creatinine 4.26 H Est Glomerular Filtrat Rate mL/min Glucose Level 233 H Calcium Level 8.9 Phosphorus Level 6.0 H Medications Medication Current Medications Amiodarone HCl (Cordarone) 200 mg DAILY PO Last administered on 04/03/19 09:11; Admin Dose 200 MG; Start 04/02/19 at 09:00 Aspirin (Halfprin) 81 mg DAILY PO Last administered on 04/03/19 09:11; Admin Dose 81 MG; Start 04/02/19 at 09:00 Atorvastatin Calcium (Lipitor) 20 mg QHS PO Last administered on 04/03/19 20:20; Admin Dose 20 MG; Start 04/01/19 at 21:00 Docusate Sodium (Colace) 100 mg BID PO Last administered on 04/03/19 20:21; Admin Dose 100 MG; Start 04/01/19 at 21:00 Midodrine (Proamatine) 5 mg DAILY PO Last administered on 04/03/19 09:11; Ad min Dose 5 MG; Start 04/02/19 at 09:00 Montelukast Sodium (Singulair) 10 mg QHS PO Last administered on 04/03/19 20:21; Admin Dose 10 MG; Start 04/01/19 at 21:00 Sevelamer Carbonate (Renvela) 1.6 gm BID WITH MEALS PO Last administered on 04/03/19 17:50; Admin Dose 1.6 GM; Start 04/01/19 at 21:00 Albuterol/ Ipratropium (Duoneb) 3 ml Q2H RESP THERAPY PRN NEB SHORTNESS OF BREATH; Start 04/01/19 at 21:00 Zolpidem Tartrate (Ambien) 5 mg QHS PRN PO INSOMNIA Last administered on 04/02/19 21:20; Admin Dose 5 MG; Start 04/01/19 at 21:00 Vancomycin HCl (Vanco Iv Per Pharmacy) VANCOMYCIN PER PHARMACY PER PROTOCOL XX ; Start 04/01/19 at 21:00 Cefepime HCl 50 ml @ 100 mls/hr Q24H IVPB Last administered on 04/04/19 08:24; Admin Dose 100 MLS/HR; Start 04/02/19 at 09:00 Norepinephrine 250 ml @ 1.875 mls/ hr TITRATE IV Last administered on 04/04/19 08:57; Admin Dose 9.375 MLS/HR; Start 04/02/19 at 02:30 Sodium Chloride 1,000 ml @ 30 mls/hr Q24H IV Last administered on 6/17/19at 23:52; Admin Dose 30 MLS/HR; Start 04/02/19 at 12:30 IV Flush (NS 10 ml) 10 ml PRN PRN IV IV PROTOCOL; Start 04/03/19 at 17:00 Epoetin Jatinder-epbx (Retacrit (Esrd)) 10,000 unit AFTER EACH DIALYSIS SC ; Start 04/04/19 at 16:00 NANCY LIRA 19, 2019 09:13
[2019-04-05] MEDS: CEFEPIME 1GM/50 ML (PMX) 50 ML IVPB SCH (09:39)
[2019-04-05] MEDS: MIDODRINE 5 MG TAB PO SCH (09:40)
[2019-04-05] MEDS: AMIODARONE 200 MG TAB PO SCH (09:40)
[2019-04-05] MEDS: BALSAM PERU/CASTOR OIL 60 GM TUBE TOP SCH ×2 (09:42→20:30)
[2019-04-05] MEDS: SOD CHLORIDE 0.9% 1,000 ML IV SCH (09:48)
[2019-04-05] MEDS ORDERED: INSULIN ASPART [NOVOLOG] 3 ML PEN SC SCH ×2 (11:30)
[2019-04-05] MEDS ORDERED: DEXTROSE 50% 50 ML SYRINGE IV PRN ×2 (11:30)
[2019-04-05] MEDS ORDERED: GLUCOSE GEL 15 GRAM TUBE BUCCAL PRN (11:30)
[2019-04-05] MEDS ORDERED: GLUCOSE GEL 15 GRAM TUBE PO PRN ×2 (11:30)
[2019-04-05] MEDS ORDERED: GLUCAGON 1 MG INJ IM PRN (11:30)
--- NOTE | 2019-04-05 12:16 | CONS ---
Assessment/Plan Assessment/Plan Hospital Course (Demo Recall) No acute changes patient is off pressors in no distress afebrile, blood cultures still pending. He is on Vanco cefepime. Indwelling's right upper extremity AV fistula Microbiology: Blood cultures + GNR Antimicrobials: Patient is on cefepime and vancomycin Physical examination: This is an obese well-developed chronically ill elderly [place] man who is in no distress. Head atraumatic normocephalic neck is supple chest rise symmetrical breath sounds diminished bases. Heart: S1-S2. Ta chycardic abdomen soft obese bowel sounds hypoactive extremities without cyanosis, trace edema Assessment: 1. Sepsis with shock 2. GNR bacteremia ?source 3. End-stage renal disease, hemodialysis dependent 4. Recently diagnosed hepatocellular carcinoma 5. Coronary artery disease status post permanent pacemaker 6. Diabetes 7. Atrial fibrillation Plan: Clinically unchanged, repeat CT of the abdomen noted, continue cefepime, DC vancomycin, follow final cultures, consider oncology evaluation and overall prognosis poor Consultation Date/Type/Reason Admit Date/Time Apr 01, 2019 at 17:43 Initial Consult Date 04/03/19 Type of Consult id Requesting Provider: ADA RANGEL DO Date/Time of Note DATE: 04/05/19 TIME: 12:15 Exam/Review of Systems Exam Vitals Vital Signs Date Temp Pulse Resp B/P (MAP) Pulse Ox O2 O2 Flow FiO2 Time Delivery Rate 04/05/19 94 31 96/51 (66) 10:15 04/05/19 Room Air 10:00 04/05/19 99 09:15 04/05/19 97.0 08:00 04/01/19 2.0 22:10 Intake and Output 04/04/19 04/04/19 04/05/19 1515:00 23:00 07:00 IntakeIntake Total 157.495 ml 28.125 ml 47.5 ml OutputOutput Total 2600 ml 0 ml 0 ml BalanceBalance -2442.505 ml 28.125 ml 47.5 ml Results Result Diagram: 04/05/19 0500 04/05/19 0500 Results 24hrs Laboratory Tests Test 04/05/19 00:37 04/05/19 05:00 Potassium Level 4.3 4.2 Magnesium Level 2.4 2.3 White Blood Count 17.6 H Red Blood Count 2.85 L Hemoglobin 8.7 L Hematocrit 29.3 L Mean Corpuscular Volume 102.8 H Mean Corpuscular Hemoglobin 30.5 Mean Corpuscular Hemoglobin Concent 29.7 L Red Cell Distribution Width 16.3 H Platelet Count 275 Mean Platelet Volume 10.5 H Immature Granulocytes % 2.400 H Neutrophils % 85.0 H Lymphocytes % 4.8 L Monocytes % 7.6 Eosinophils % 0.1 Basophils % 0.1 Nucleated Red Blood Cells % 0.1 H Immature Granulocytes # 0.420 H Neutrophils # 15.0 H Lymphocytes # 0.8 Monocytes # 1.3 H Eosinophils # 0.0 Basophils # 0.0 Nucleated Red Blood Cells # 0.0 Sodium Level 140 Chloride Level 99 Carbon Dioxide Level 19 L Anion Gap 22 H Blood Urea Nitrogen 37 #H Creatinine 4.26 H Est Glomerular Filtrat Rate mL/min Glucose Level 233 H Calcium Level 8.9 Phosphorus Level 6.0 H Medications Medication Current Medications Amiodarone HCl (Cordarone) 200 mg DAILY PO Last administered on 04/05/19 09:40; Admin Dose 200 MG; Start 04/02/19 at 09:00 Aspirin (Halfprin) 81 mg DAILY PO Last administered on 04/03/19 09:11; Admin Dose 81 MG; Start 04/02/19 at 09:00 Atorvastatin Calcium (Lipitor) 20 mg QHS PO Last administered on 04/03/19 20:20; Admin Dose 20 MG; Start 04/01/19 at 21:00 Docusate Sodium (Colace) 100 mg BID PO Last administered on 04/03/19 20:21; Admin Dose 100 MG; Start 04/01/19 at 21:00 Midodrine (Proamatine) 5 mg DAILY PO Last administered on 04/05/19 09:40; Admin Dose 5 MG; Start 04/02/19 at 09:00 Montelukast Sodium (Singulair) 10 mg QHS PO Last administered on 04/03/19 20:21; Admin Dose 10 MG; Start 04/01/19 at 21:00 Sevelamer Carbonate (Renvela) 1.6 gm BID WITH MEALS PO Last administered on 04/03/19at 17:50; Admin Dose 1.6 GM; Start 04/01/19 at 21:00 Albuterol/ Ipratropium (Duoneb) 3 ml Q2H RESP THERAPY PRN NEB SHORTNESS OF BREATH; Start 04/01/19 at 21:00 Zolpidem Tartrate (Ambien) 5 mg QHS PRN PO INSOMNIA Last administered on 04/02/19at 21:20; Admin Dose 5 MG; Start 04/01/19 at 21:00 Vancomycin HCl (Vanco Iv Per Pharmacy) VANCOMYCIN PER PHARMACY PER PROTOCOL XX ; Start 04/01/19 at 21:00 Cefepime HCl 50 ml @ 100 mls/hr Q24H IVPB Last administered on 04/05/19at 09:39; Admin Dose 100 MLS/HR; Start 04/02/19 at 09:00 Norepinephrine 250 ml @ 1.875 mls/ hr TITRATE IV Last administered on 04/04/19at 08:57; Admin Dose 9.375 MLS/HR; Start 04/02/19 at 02:30 Sodium Chloride 1,000 ml @ 30 mls/hr Q24H IV Last administered on 04/05/19at 09:48; Admin Dose 30 MLS/HR; Start 04/02/19 at 12:30 IV Flush (NS 10 ml) 10 ml PRN PRN IV IV PROTOCOL; Start 04/03/19 at 17:00 Epoetin Jatinder-epbx (Retacrit (Esrd)) 10,000 unit AFTER EACH DIALYSIS SC ; Start 04/04/19 at 16:00 Diagnostic Test (Pha) (Accu-Chek) 1 ea 02 XX ; Start 04/06/19 at 02:00 Insulin Aspart (Novolog Insulin Pen) 6 unit WITH MEALS SC ; Start 04/05/19 at 11:30 Insulin Aspart (Novolog Insulin Pen) NOVOLOG *MILD* ALGORITHM WITH MEALS BEDTIME SC ; Start 04/05/19 at 11:30 Miscellaneous Information 1 ea NOTE XX ; Start 04/05/19 at 11:30 Glucose (Glutose) 15 gm Q15M PRN PO DECREASED GLUCOSE; Start 04/05/19 at 11:30 Glucose (Glutose) 22.5 gm Q15M PRN PO DECREASED GLUCOSE; Start 04/05/19 at 11:30 Dextrose (D50w Syringe) 25 ml Q15M PRN IV DECREASED GLUCOSE; Start 04/05/19 at 11:30 Dextrose (D50w Syringe) 50 ml Q15M PRN IV DECREASED GLUCOSE; Start 04/05/19 at 11:30 Glucagon (Glucagen) 1 mg Q15M PRN IM DECREASED GLUCOSE; Start 04/05/19 at 11:30 Glucose (Glutose) 15 gm Q15M PRN BUCCAL DECREASED GLUCOSE; Start 04/05/19 at 11:30 Miscellaneous Information (*Rx Drug Level Order Reminder*) RANDOM VANCO 04/06 AT 0500 0500 ONCE XX ; Start 04/06/19 at 05:00; Stop 04/06/19 at 05:01 JOAO RAHMAN NP Apr 05, 2019 12:16
--- NOTE | 2019-04-05 12:27 | PN ---
DATE: 04/05/2019 SUBJECTIVE: The patient remains critically ill on pressor support. The patient is being weaned off slowly. No other events noted. No hemoptysis, hematemesis, hematochezia. The patient remains confu sed. OBJECTIVE: VITAL SIGNS: Blood pressure is 124/58, respiration 21, pulse 86, temperature 98.6. HEENT: Head is normocephalic. NECK: Supple. HEART: Regular rate. LUNGS: Show diminished breath sounds at the base. ABDOMEN: Soft, nontender to palpation without rebound or guarding. EXTREMITIES: Negative for clubbing, cyanosis, no edema. DERMATOLOGIC: No rashes. MUSCULOSKELETAL: No joint effusion. NEUROLOGIC: No change in exam. MEDICATIONS: The patient's medications have been reviewed. IMAGING STUDIES: Have been reviewed. MICROBIOLOGY: Reviewed. The patient grew out gram-negative rods in blood culture. ASSESSMENT AND PLAN: 1. Septic shock, underlying source secondary to bacteremia, positive gram-negative rods, possibly d ue to an intra-abdominal etiology. The patient's CT scan of abdomen and pelvis showed findings of di lated intrahepatic biliary ducts, possible obstructing mass in hepatic lobe compatible with possible peritoneal carcinomatosis. The patient currently remains on pressor support, antibiotic therapy, jonny l continue. Follow up infectious disease. Monitor closely. 2. Possible hepatic mass with possible peritoneal carcinomatosis. Per CT findings. Plan at this po int is to get a GI consult for evaluation. May also consider oncology evaluation. Will continue to monitor closely. 3. Anemia. Patient's stool OB was noted to be positive. We will follow up with GI. Monitor hemogl obin and hematocrit levels. Will continue Epogen. Transfuse PRBCs as needed. 4. End-stage renal disease. The patient had hemodialysis yesterday. Plan for dialysis tomorrow. 5. Mineral bone disorder, monitor calcium and phosphorus levels. 6. Elevated troponin likely non-STEMI type 2. Continue to monitor. Follow up with cardiology. 7. Diabetes. Continue current insulin regimen. 8. Arrhythmia. Continue current medical management. Follow up with cardiology. 9. Volume overload. Continue ultrafiltration with dialysis. 10. Acute encephalopathy, etiology is toxic metabolic. Dictated By: ADA MORENO/CORNELIA Conf#: [id number] DID#: [id number] CC: TRAE TRAVIS MD; DYLAN GREENE MD;*[facility]*
[2019-04-05] MEDS: INSULIN ASPART [NOVOLOG] 3 ML PEN SC SCH ×2 (18:20→20:32)
[2019-04-05] MEDS ORDERED: INSULIN GLARGINE [LANTus] (100 UNITS/ML) SYG SC SCH (20:00)
[2019-04-05] MEDS: MONTELUKAST 10 MG TAB PO SCH (20:30)
[2019-04-05] MEDS: ATORVASTATIN 20 MG TAB PO SCH (20:30)
[2019-04-05] MEDS: ZOLPIDEM 5 MG TAB PO PRN (22:19)
[2019-04-06] VITALS (69 sets, daily range): BP systolic 56–155; BP diastolic 16–122; PULSE 80–180; RESP 15–31
[2019-04-06] MEDS: ACCU-CHEK XX SCH (01:17)
[2019-04-06] MEDS ORDERED: ACCU-CHEK XX SCH (02:00)
--- NOTE | 2019-04-06 07:25 | CONS ---
Consult Date/Type/Reason Admit Date/Time Apr 01, 2019 at 17:43 Initial Consult Date 04/03/19 Type of Consultation: cv Requesting Provider: ADA RANGEL DO Date/Time of Note DATE: 04/06/19 TIME: 07:24 Subjective Cardiology follow-up progress note Subjective: Discussed with the staff. Telemetry was reviewed. Patient has remained in sinus rhythm./ demand pacing Patient remains in ICU with close monitoring. Patient has been less hypotensive and is off Levophed drip No report of any chest pain or pressure Objective: General: no acute distress HEENT: NC/AT. pupils are equal. round. NECK: no stridor. CV: RRR. systolic murmur; no gallop or rubs. PULM: no wheezing or rhonchi. GI: SOFT, NT, ND, no rebound or guarding Extremity: trace B/L LE edema. no clubbing. neuro: awake Psych: calm rectal: deferred EKG shows ventricular paced rhythm Chest x-ray done 03/24/2019 shows: 1. New left-sided PICC in proximal SVC. 2. Persistent small left-sided pleural effusion with left lung base atelectasis/infiltrate. 3. Persistent patchy opacity of the right lung base. 4. Persistent cardiomegaly with mild vascular congestion CT 1. Again noted is severe dilatation of left intrahepatic biliary ducts. No gross evidence of hepatic mass is seen, though sensitivity is markedly limited without IV contrast. Findings remain concerning for obstructive mass in the central left hepatic lobe, as described in the prior CT report. 2. Findings compatible with peritoneal carcinomatosis. Moderate ascites, grossly stable. 3. Stable mild cardiomegaly. Coronary arterial and aortoiliac atherosclerotic calcifications. 4. Mild to moderate bilateral pleural effusions, grossly stable. Bibasilar atelectasis. 5. Cholelithiasis, without evidence for cholecystitis. 6. Chronic bilateral renal cortical thinning and atrophy, unchanged. Objective Vitals Vital Signs Date Temp Pulse Resp B/P (MAP) Pulse Ox O2 O2 Flow FiO2 Time Delivery Rate 04/06/19 93 23 113/26 07:00 (55) 04/06/19 98.6 04:00 04/06/19 98 02:00 04/05/19 Room Air 20:00 Intake and Output 04/05/19 04/05/19 04/06/19 1515:00 23:00 07:00 IntakeIntake Total 443.125 ml 180 ml 30 ml OutputOutput Total 0 ml 0 ml 0 ml BalanceBalance 443.125 ml 180 ml 30 ml Results/Medications Result Diagram: 04/06/190 04/06/19 0400 Results 24 hrs Laboratory Tests Test 04/05/19 12:53 04/05/19 18:12 04/05/19 20:29 04/06/19 01:16 Bedside Glucose 241 H 234 H 222 H 231 H Test 04/06/19 04:00 White Blood Count 12.5 #H Red Blood Count 2.76 L Hemoglobin 8.6 L Hematocrit 28.2 L Mean Corpuscular 102.2 H Volume Mean Corpuscular 31.2 Hemoglobin Mean Corpuscular 30.5 L Hemoglobin Concent Red Cell 16.4 H Distribution Width Platelet Count 191 # Mean Platelet Volume 10.3 Immature 1.400 H Granulocytes % Neutrophils % 84.3 H Lymphocytes % 6.2 L Monocytes % 7.8 Eosinophils % 0.1 Basophils % 0.2 Nucleated Red Blood 0.0 Cells % Immature 0.180 H Granulocytes # Neutrophils # 10.5 H Lymphocytes # 0.8 Monocytes # 1.0 H Eosinophils # 0.0 Basophils # 0.0 Nucleated Red Blood 0.0 Cells # Sodium Level 141 Potassium Level 4.1 Chloride Level 99 Carbon Dioxide Level 25 Anion Gap 17 H Blood Urea Nitrogen 52 H Creatinine 4.93 H Est Glomerular Filtrat Rate mL/min Glucose Level 224 H Calcium Level 8.4 Phosphorus Level 5.3 H Magnesium Level 2.3 Total Bilirubin 0.2 Direct Bilirubin 0.00 Indirect Bilirubin 0.2 Aspartate Amino 44 Transf (AST/SGOT) Alanine 44 Aminotransferase (AL T/SGPT) Alkaline Phosphatase 68 Total Protein 5.1 L Albumin 2.5 L Globulin 2.60 Albumin/Globulin 0.96 Ratio Alpha Fetoprotein < 0.83 Carcinoembryonic 13.9 H Antigen CA 19-9 Antigen Pending Home Meds Reported Medications Docusate Sodium* (Docusate Sodium*) 100 Mg Capsule, 100 MG PO BID, #60 CAP 04/01/19 Metoprolol Succinate* (Toprol XL*) 25 Mg Tab.sr.24h, 25 MG PO DAILY, #30 TAB 04/01/19 Aspirin* (Aspirin* EC) 81 Mg Tablet.dr, 81 MG PO DAILY, TAB 04/01/19 Fenofibrate, Micronized (Fenofibrate) 134 Mg Capsule, 134 MG PO DAILY, CAP 04/01/19 Sevelamer Carbonate* (Renvela*) 800 Mg Tablet, 1.6 GM PO BID, TAB 04/01/19 Amiodarone Hcl* (Amiodarone Hcl*) 200 Mg Tablet, 200 MG PO DAILY, #30 TAB TAKE Q TUES,THURS,SAT WITH DIALYSIS 04/01/19 Montelukast Sodium* (Montelukast Sodium*) 10 Mg Tablet, 10 MG PO QHS, #30 TAB 04/01/19 [Nephro-Elieser] No Conflict Check, 1 TAB PO DAILY 04/01/19 Sacubitril/Valsartan (Entresto 24 mg-26 mg Tablet) 1 Each Tablet, 1 EACH PO BID, TAB 04/01/19 Midodrine* (Midodrine*) 5 Mg Tablet, 5 MG PO DAILY, TAB 04/01/19 Furosemide* (Furosemide*) 40 Mg Tablet, 40 MG PO DAILY, TAB 04/01/19 Atorvastatin Calcium* (Atorvastatin Calcium*) 20 Mg Tablet, 20 MG PO QHS, #30 TAB 04/01/19 Medications Current Medications Amiodarone HCl (Cordarone) 200 mg DAILY PO Last administered on 04/05/19at 09:40; Admin Dose 200 MG; Start 04/02/19 at 09:00 Aspirin (Halfprin) 81 mg DAILY PO Last administered on 04/03/19at 09:11; Admin Dose 81 MG; Start 04/02/19 at 09:00 Atorvastatin Calcium (Lipitor) 20 mg QHS PO Last administered on 04/05/19at 20:30; Admin Dose 20 MG; Start 04/01/19 at 21:00 Docusate Sodium (Colace) 100 mg BID PO Last administered on 04/05/19at 20:30; Admin Dose 100 MG; Start 04/01/19 at 21:00 Midodrine (Proamatine) 5 mg DAILY PO Last administered on 04/05/19at 09:40; Admin Dose 5 MG; Start 04/02/19 at 09:00 Montelukast Sodium (Singulair) 10 mg QHS PO Last administered on 04/05/19at 20:30; Admin Dose 10 MG; Start 04/01/19 at 21:00 Sevelamer Carbonate (Renvela) 1.6 gm BID WITH MEALS PO Last administered on 04/05/19at 18:20; Admin Dose 1.6 GM; Start 04/01/19 at 21:00 Albuterol/ Ipratropium (Duoneb) 3 ml Q2H RESP THERAPY PRN NEB SHORTNESS OF BREATH; Start 04/01/19 at 21:00 Zolpidem Tartrate (Ambien) 5 mg QHS PRN PO INSOMNIA Last administered on 04/05/19at 22:19; Admin Dose 5 MG; Start 04/01/19 at 21:00 Cefepime HCl 50 ml @ 100 mls/hr Q24H IVPB Last administered on 04/05/19at 09:39; Admin Dose 100 MLS/HR; Start 04/02/19 at 09:00 Norepinephrine 250 ml @ 1.875 mls/ hr TITRATE IV Last administered on 04/04/19at 08:57; Admin Dose 9.375 MLS/HR; Start 04/02/19 at 02:30 IV Flush (NS 10 ml) 10 ml PRN PRN IV IV PROTOCOL; Start 04/03/19 at 17:00 Epoetin Jatinder-epbx (Retacrit (Esrd)) 10,000 unit AFTER EACH DIALYSIS SC ; Start 04/04/19 at 16:00 Miscellaneous Information 1 ea NOTE XX ; Start 04/05/19 at 11:30 Glucose (Glutose) 15 gm Q15M PRN PO DECREASED GLUCOSE; Start 04/05/19 at 11:30 Glucose (Glutose) 22.5 gm Q15M PRN PO DECREASED GLUCOSE; Start 04/05/19 at 11:30 Dextrose (D50w Syringe) 25 ml Q15M PRN IV DECREASED GLUCOSE; Start 04/05/19 at 11:30 Dextrose (D50w Syringe) 50 ml Q15M PRN IV DECREASED GLUCOSE; Start 04/05/19 at 11:30 Glucagon (Glucagen) 1 mg Q15M PRN IM DECREASED GLUCOSE; Start 04/05/19 at 11:30 Glucose (Glutose) 15 gm Q15M PRN BUCCAL DECREASED GLUCOSE; Start 04/05/19 at 11:30 Diagnostic Test (Pha) (Accu-Chek) 1 ea 02 XX Last administered on 04/06/19at 01:17; Admin Dose 1 EA; Start 04/06/19 at 02:00 Insulin Glargine (Lantus) 17 units DAILY@2000 SC Last administered on 04/05/19 20:31; Admin Dose 17 UNITS; Start 04/05/19 at 20:00 Insulin Aspart (Novolog Insulin Pen) NOVOLOG *MILD* ALGORITHM WITH MEALS BEDTIME SC Last administered on 04/05/19 20:32; Admin Dose 2 UNIT; Start 04/05/19 at 17:35 Assessment/Plan Hospital Course (Demo Recall) Mildly abnormal troponin secondary to sepsis renal failure etc. Sepsis/pneumonia GNR bacteremia Pneumonia History of hepatocellular cancer Renal failure dialysis dependent History of arrhythmia probably sick sinus syndrome versus heart block status post permanent pacemaker Encephalopathy Paroxysmal atrial fibrillation Recommendations: Continue with aspirin as noted no active bleeding is noted Antibiotic management as per internal medicine and consultants Continue to be hemodialysis as tolerated Unable to tolerate beta-damian due to his low blood pressure Milronone would be continued levophed as needed Consider GI consultation Thank you for this referral. We will continue to follow along with you JOSE D SOLOMON MD [facility] JOSE D SOLOMON MD Apr 06, 2019 07:25
[2019-04-06] MEDS: SEVELAMER CARBONATE 0.8 GM PKT PO SCH ×2 (07:35→17:35)
--- NOTE | 2019-04-06 08:40 | CONS ---
DATE OF ADMISSION: 04/01/2019 DATE OF CONSULTATION: HISTORY OF PRESENT ILLNESS: An 83-year-old male with a past medical history of renal failure on dial ysis, hypertension, atrial fibrillation, CHF, who was brought to the emergency room because of low bl ood pressure on dialysis. In the ER, his blood pressure was 56/26. The patient was evaluated, had a CAT scan done which showed peritoneal carcinomatosis, possible hepatocellular carcinoma and was admi tted for further management. He also had abdominal paracentesis and 4 liters of fluid was removed. The patient is bit confused and not much information could be obtained. PAST MEDICAL HISTORY: Anemia, systolic failure, left hepatocellular carcinoma plus peritoneal carcin omatosis, cirrhosis with ascites, diabetes, COPD, coagulopathy. PAST SURGICAL HISTORY: Permanent pacemaker. ALLERGIES: NO KNOWN ALLERGIES. SOCIAL HISTORY: Does not smoke or drink. No IV drug abuse. FAMILY HISTORY: Nothing contributory. REVIEW OF SYSTEMS: Unable to do it. PHYSICAL EXAMINATION VITAL SIGNS: Stable. GENERAL: Looks good for his age. CARDIOVASCULAR: No murmur, gallop or click. LUNGS: Clear. ABDOMEN: Benign. EXTREMITIES: No edema. CENTRAL NERVOUS SYSTEM: Grossly within normal limits. IMPRESSION: 1. Severe sepsis. 2. Ascites. 3. Pneumonia. 4. Hepatocellular cancer with carcinomatosis. 5. Non-ST segment elevation myocardial infarction. 6. Diabetes mellitus. 7. Atrial fibrillation. 8. Congestive heart failure. 9. Dilated left-sided biliary system. 10. Anemia. PLAN: Continue present care. Will send for alpha fetoprotein. Monitor LFTs. If the bilirubin star ashli going up, then patient may need a stenting of the left side of the biliary system. Dictated By: OLIVIA BURKETT/CORNELIA Conf#: [id number] DID#: [id number]
[2019-04-06] MEDS: INSULIN ASPART [NOVOLOG] 3 ML PEN SC SCH ×4 (08:45→20:10)
[2019-04-06] MEDS: AMIODARONE 200 MG TAB PO SCH ×2 (09:00→11:39)
[2019-04-06] MEDS: DOCUSATE SODIUM 100 MG CAP PO SCH ×2 (09:00→20:11)
[2019-04-06] MEDS: MIDODRINE 5 MG TAB PO SCH ×2 (09:00→11:40)
[2019-04-06] MEDS: ASPIRIN (EC) 81 MG TAB PO SCH ×2 (09:00→11:38)
--- NOTE | 2019-04-06 09:25 | CONS ---
Assessment/Plan Assessment/Plan Assessment/Plan (Daily) Assessment and recommendations; 1. Patient admitted with sepsis due to gram-negative bacteremia, currently on appropriate treatment regimen. Most recent blood cultures are negative. 2. Interval improvement in hypotension. 3. History of liver cancer. 4. End-stage renal disease, on hemodialysis. 5. CHF with small to moderate bilateral pleural effusions. 6. History of cardiac arrhythmia, status post pacemaker placement in the past. 7. Mild thrombocytopenia. Continue current supportive care. Patient will be started on Levophed during hemodialysis for mild hypotension. Consultation Date/Type/Reason Admit Date/Time Apr 01, 2019 at 17:43 Initial Consult Date 04/03/19 Type of Consult Pulmonary/critical care Patient is a pleasant 83-year-old gentleman who was sent over from dialysis center because of hypotension. Patient been diagnosed with sepsis, has been adequately fluid resuscitated and currently on Levophed drip. Patient remains completely awake and alert. Denies any shortness of breath, fever, chest pain, nausea vomiting. Past medical history; 1. End-stage renal disease, on hemodialysis. 2. Liver cancer. 3. Anemia of chronic disease. 4. Chronic atrial fibrillation. History of pacemaker placement. 5. CHF. Medications; reviewed. Allergies; none. Family history; noncontributory. Occupational history; noncontributory. Review of systems; denies any headache, seizures. Shortness of breath has improved. Denies any abdominal pain, nausea vomiting. Denies any edema. Any fever or chills. Denies any seizures. General exam; elderly male, laying comfortably in bed on room air. Currently in no distress. Requesting Provider: ADA RANGEL DO Date/Time of Note DATE: 04/06/19 TIME: 09:22 24 HR Interval Summary Free Text/Dictation Patient's condition is stable. Remains awake and fairly alert. Has remained hemodynamically stable. General exam; elderly male, currently no distress. Awake and alert. Exam/Review of Systems Exam Vitals Vital Signs Date Temp Pulse Resp B/P (MAP) Pulse Ox O2 O2 Flow FiO2 Time Delivery Rate 04/06/19 82 20 116/49 97 Room Air 09:00 (71) 04/06/19 96.8 08:00 Intake and Output 04/05/19 04/05/19 04/06/19 1515:00 23:00 07:00 IntakeIntake Total 443.125 ml 180 ml 30 ml OutputOutput Total 0 ml 0 ml 0 ml BalanceBalance 443.125 ml 180 ml 30 ml Exam H ENT exam; supple neck, no JVD. No lymphadenopathy. Midline trachea. No thyromegaly. Chest exam; diminished but clear breath sounds. S1-S2 audible, no murmurs. Regular rhythm. Abdomen exam; soft, no organomegaly. Nontender. Bowel sounds audible. Extremity exam; no peripheral edema clubbing. DIRECTOR OF BUSINESS CONTINUITY exam; no focal motor deficit. Results Result Diagram: 04/06/19 0400 04/06/19 0400 Results 24hrs Laboratory Tests Test 04/05/19 12:53 04/05/19 18:12 04/05/19 20:29 04/06/19 01:16 Bedside Glucose 241 H 234 H 222 H 231 H Test 04/06/19 04:00 04/06/19 08:42 White Blood Count 12.5 #H Red Blood Count 2.76 L Hemoglobin 8.6 L Hematocrit 28.2 L Mean Corpuscular 102.2 H Volume Mean Corpuscular 31.2 Hemoglobin Mean Corpuscular 30.5 L Hemoglobin Concent Red Cell 16.4 H Distribution Width Platelet Count 191 # Mean Platelet Volume 10.3 Immature 1.400 H Granulocytes % Neutrophils % 84.3 H Lymphocytes % 6.2 L Monocytes % 7.8 Eosinophils % 0.1 Basophils % 0.2 Nucleated Red Blood 0.0 Cells % Immature 0.180 H Granulocytes # Neutrophils # 10.5 H Lymphocytes # 0.8 Monocytes # 1.0 H Eosinophils # 0.0 Basophils # 0.0 Nucleated Red Blood 0.0 Cells # Sodium Level 141 Potassium Level 4.1 Chloride Level 99 Carbon Dioxide Level 25 Anion Gap 17 H Blood Urea Nitrogen 52 H Creatinine 4.93 H Est Glomerular Filtrat Rate mL/min Glucose Level 224 H Calcium Level 8.4 Phosphorus Level 5.3 H Magnesium Level 2.3 Total Bilirubin 0.2 Direct Bilirubin 0.00 Indirect Bilirubin 0.2 Aspartate Amino 44 Transf (AST/SGOT) Alanine 44 Aminotransferase (AL T/SGPT) Alkaline Phosphatase 68 Total Protein 5.1 L Albumin 2.5 L Globulin 2.60 Albumin/Globulin 0.96 Ratio Alpha Fetoprotein < 0.83 Carcinoembryonic 13.9 H Antigen CA 19-9 Antigen Pending Bedside Glucose 235 H Medications Medication Current Medications Amiodarone HCl (Cordarone) 200 mg DAILY PO Last administered on 04/05/19 09:40; Admin Dose 200 MG; Start 04/02/19 at 09:00 Aspirin (Halfprin) 81 mg DAILY PO Last administered on 04/03/19 09:11; Admin Dose 81 MG; Start 04/02/19 at 09:00 Atorvastatin Calcium (Lipitor) 20 mg QHS PO Last administered on 04/05/19 20:30; Admin Dose 20 MG; Start 04/01/19 at 21:00 Docusate Sodium (Colace) 100 mg BID PO Last administered on 04/05/19 20:30; Admin Dose 100 MG; Start 04/01/19 at 21:00 Midodrine (Proamatine) 5 mg DAILY PO Last administered on 04/05/19 09:40; Admin Dose 5 MG; Start 04/02/19 at 09:00 Montelukast Sodium (Singulair) 10 mg QHS PO Last administered on 04/05/19 20:30; Admin Dose 10 MG; Start 04/01/19 at 21:00 Sevelamer Carbonate (Renvela) 1.6 gm BID WITH MEALS PO Last administered on 04/05/19 18:20; Admin Dose 1.6 GM; Start 04/01/19 at 21:00 Albuterol/ Ipratropium (Duoneb) 3 ml Q2H RESP THERAPY PRN NEB SHORTNESS OF BREATH; Start 04/01/19 at 21:00 Zolpidem Tartrate (Ambien) 5 mg QHS PRN PO INSOMNIA Last administered on 04/05/19 22:19; Admin Dose 5 MG; Start 04/01/19 at 21:00 Cefepime HCl 50 ml @ 100 mls/hr Q24H IVPB Last administered on 04/05/19 09:39; Admin Dose 100 MLS/HR; Start 04/02/19 at 09:00 Norepinephrine 250 ml @ 1.875 mls/ hr TITRATE IV Last administered on 04/04/19 08:57; Admin Dose 9.375 MLS/HR; Start 04/02/19 at 02:30 IV Flush (NS 10 ml) 10 ml PRN PRN IV IV PROTOCOL; Start 04/03/19 at 17:00 Epoetin Jatinder-epbx (Retacrit (Esrd)) 10,000 unit AFTER EACH DIALYSIS SC ; Start 04/04/19 at 16:00 Miscellaneous Information 1 ea NOTE XX ; Start 04/05/19 at 11:30 Glucose (Glutose) 15 gm Q15M PRN PO DECREASED GLUCOSE; Start 04/05/19 at 11:30 Glucose (Glutose) 22.5 gm Q15M PRN PO DECREASED GLUCOSE; Start 04/05/19 at 11:30 Dextrose (D50w Syringe) 25 ml Q15M PRN IV DECREASED GLUCOSE; Start 04/05/19 at 11:30 Dextrose (D50w Syringe) 50 ml Q15M PRN IV DECREASED GLUCOSE; Start 04/05/19 at 11:30 Glucagon (Glucagen) 1 mg Q15M PRN IM DECREASED GLUCOSE; Start 04/05/19 at 11:30 Glucose (Glutose) 15 gm Q15M PRN BUCCAL DECREASED GLUCOSE; Start 04/05/19 at 11:30 Diagnostic Test (Pha) (Accu-Chek) 1 ea 02 XX Last administered on 04/06/19at 01:17; Admin Dose 1 EA; Start 04/06/19 at 02:00 Insulin Aspart (Novolog Insulin Pen) NOVOLOG *MILD* ALGORITHM WITH MEALS BEDTIME SC Last administered on 04/06/19at 08:45; Admin Dose 3 UNIT; Start 04/05/19 at 17:35 Insulin Glargine (Lantus) 20 units DAILY@2000 SC ; Start 04/06/19 at 20:00 NANCY LIRA Apr 06, 2019 09:25
[2019-04-06] MEDS ORDERED: metroNIDAZOLE 500 MG/NS (PMX) 100 ML IVPB SCH (10:00)
--- NOTE | 2019-04-06 10:19 | PN ---
DATE: 04/06/2019 SUBJECTIVE: The patient is in serious but stable condition. The patient is currently on pressor sup port. No other acute events noted overnight. No hemoptysis, hematemesis, hematochezia. OBJECTIVE: VITAL SIGNS: Blood pressure is 113/26, respiration 23, pulse 93, temperature 98.6. HEENT: Head is normocephalic. NECK: Supple. HEART: Regular rate. LUNGS: Show diminished breath sounds at the base. ABDOMEN: Soft, nontender to palpation without rebound or guarding. EXTREMITIES: Negative for clubbing, cyanosis, no edema. DERMATOLOGIC: No rashes. MUSCULOSKELETAL: No joint effusion. NEUROLOGIC: No change in exam. MEDICATIONS: The patient's medications have been reviewed. LABORATORY DATA: Has been reviewed. IMAGING STUDIES: Have been reviewed. ASSESSMENT AND PLAN: 1. Septic shock. Etiology secondary to bacteremia, gram-negative rods. Underlying source is unclea r, possible intra-abdominal. The patient is currently off pressor support. At this point, continue current treatment plan. Continue antibiotic therapy. Follow up with infectious disease. 2. 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 GI consult has been placed. We will follow up recommendations. Continue to monitor. 3. Anemia. Monitor hemoglobin and hematocrit levels. Continue Epogen. 4. Hematochezia. Will continue to monitor for any gross evidence of GI bleeding. Follow up with [facility] for any further recommendations. 5. End-stage renal disease. The patient is scheduled for dialysis today. Will dialyze 3 hours 2k b ath, calcium 2.5. 6. Mineral bone disorder, monitor calcium and phosphorus levels. 7. Elevated troponin, possible non-ST elevation myocardial infarction type 2. Continue to monitor. 8. Diabetes. Continue current insulin regimen. 9. Arrhythmia with a history of pacemaker. Continue to monitor. Follow up with cardiology. 10. Volume overload. Continue ultrafiltration dialysis. 11. Acute encephalopathy, etiology is toxic metabolic. Continue to monitor. Dictated By: ADA RANGEL DO NR/NTS Conf#: [id number] DID#: [id number] CC: DYLAN GREENE MD; TRAE TRAVIS MD;*EndCC*
[2019-04-06] MEDS: BALSAM PERU/CASTOR OIL 60 GM TUBE TOP SCH ×2 (11:26→20:12)
[2019-04-06] MEDS: NORepinephrine 8MG/250 ML (PMX 250 ML IV SCH (11:37)
--- NOTE | 2019-04-06 11:38 | CONS ---
Assessment/Plan Assessment/Plan Hospital Course (Demo Recall) Patient is in hemodialysis started on Levophed drip this morning he is lethargic in no distress. No fevers overnight. WBC 12.5 platelets 191 neutrophils 84.3 Microbiology: Blood culture on admission grew Bacteroides fragilis Indwelling's right upper extremity AV fistula Antimicrobials: Patient is on cefepime and vancomycin Physical examination: This is an obese well-developed chronically ill elderly [place] man who is in no distress. Head atraumatic normocephalic neck is supple chest rise symmetrical breath sounds diminished bases. Heart: S1-S2. Tachycardic abdomen soft obese bowel sounds hypoactive extremities without cyanosis, trace edema Assessment: 1. Sepsis with shock 2. Bacteremia ?source 3. End-stage renal disease, hemodialysis dependent 4. Recently diagnosed hepatocellular carcinoma 5. Coronary artery disease status post permanent pacemaker 6. Diabetes 7. Atrial fibrillation Plan: Remains unstable and overall doing poorly, change antibiotics to Invanz Consultation Date/Type/Reason Admit Date/Time Apr 01, 2019 at 17:43 Initial Consult Date 04/03/19 Type of Consult id Requesting Provider: ADA RANGEL DO Date/Time of Note DATE: 04/06/19 TIME: 11:37 Exam/Review of Systems Exam Vitals Vital Signs Date Temp Pulse Resp B/P (MAP) Pulse Ox O2 O2 Flow FiO2 Time Delivery Rate 04/06/19 102 24 105/67 Room Air 10:00 (80) 04/06/19 97 09:15 04/06/19 96.8 08:00 Intake and Output 04/05/19 04/05/19 04/06/19 1515:00 23:00 07:00 IntakeIntake Total 443.125 ml 180 ml 30 ml OutputOutput Total 0 ml 0 ml 0 ml BalanceBalance 443.125 ml 180 ml 30 ml Results Result Diagram: 04/06/19 0400 04/06/19 0400 Results 24hrs Laboratory Tests Test 04/05/19 12:53 04/05/19 18:12 04/05/19 20:29 04/06/19 01:16 Bedside Glucose 241 H 234 H 222 H 231 H Test 04/06/19 04:00 04/06/19 08:42 04/06/19 11:25 White Blood Count 12.5 #H Red Blood Count 2.76 L Hemoglobin 8.6 L Hematocrit 28.2 L Mean Corpuscular 102.2 H Volume Mean Corpuscular 31.2 Hemoglobin Mean Corpuscular 30.5 L Hemoglobin Concent Red Cell 16.4 H Distribution Width Platelet Count 191 # Mean Platelet Volume 10.3 Immature 1.400 H Granulocytes % Neutrophils % 84.3 H Lymphocytes % 6.2 L Monocytes % 7.8 Eosinophils % 0.1 Basophils % 0.2 Nucleated Red Blood 0.0 Cells % Immature 0.180 H Granulocytes # Neutrophils # 10.5 H Lymphocytes # 0.8 Monocytes # 1.0 H Eosinophils # 0.0 Basophils # 0.0 Nucleated Red Blood 0.0 Cells # Sodium Level 141 Potassium Level 4.1 Chloride Level 99 Carbon Dioxide Level 25 Anion Gap 17 H Blood Urea Nitrogen 52 H Creatinine 4.93 H Est Glomerular Filtrat Rate mL/min Glucose Level 224 H Calcium Level 8.4 Phosphorus Level 5.3 H Magnesium Level 2.3 Total Bilirubin 0.2 Direct Bilirubin 0.00 Indirect Bilirubin 0.2 Aspartate Amino 44 Transf (AST/SGOT) Alanine 44 Aminotransferase (AL T/SGPT) Alkaline Phosphatase 68 Total Protein 5.1 L Albumin 2.5 L Globulin 2.60 Albumin/Globulin 0.96 Ratio Alpha Fetoprotein < 0.83 Carcinoembryonic 13.9 H Antigen CA 19-9 Antigen 1000.0 H Bedside Glucose 235 H 133 Medications Medication Current Medications Amiodarone HCl (Cordarone) 200 mg DAILY PO Last administered on 04/05/19 09:40; Admin Dose 200 MG; Start 04/02/19 at 09:00 Aspirin (Halfprin) 81 mg DAILY PO Last administered on 04/03/19 09:11; Admin Dose 81 MG; Start 04/02/19 at 09:00 Atorvastatin Calcium (Lipitor) 20 mg QHS PO Last administered on 04/05/19 20:30; Admin Dose 20 MG; Start 04/01/19 at 21:00 Docusate Sodium (Colace) 100 mg BID PO Last administered on 04/05/19 20:30; Admin Dose 100 MG; Start 04/01/19 at 21:00 Midodrine (Proamatine) 5 mg DAILY PO Last administered on 04/05/19 09:40; Admin Dose 5 MG; Start 04/02/19 at 09:00 Montelukast Sodium (Singulair) 10 mg QHS PO Last administered on 04/05/19at 20:30; Admin Dose 10 MG; Start 04/01/19 at 21:00 Sevelamer Carbonate (Renvela) 1.6 gm BID WITH MEALS PO Last administered on 04/05/19at 18:20; Admin Dose 1.6 GM; Start 04/01/19 at 21:00 Albuterol/ Ipratropium (Duoneb) 3 ml Q2H RESP THERAPY PRN NEB SHORTNESS OF BREATH; Start 04/01/19 at 21:00 Zolpidem Tartrate (Ambien) 5 mg QHS PRN PO INSOMNIA Last administered on 04/05/19at 22:19; Admin Dose 5 MG; Start 04/01/19 at 21:00 Cefepime HCl 50 ml @ 100 mls/hr Q24H IVPB Last administered on 04/05/19at 09:39; Admin Dose 100 MLS/HR; Start 04/02/19 at 09:00 Norepinephrine 250 ml @ 1.875 mls/ hr TITRATE IV Last administered on 04/04/19at 08:57; Admin Dose 9.375 MLS/HR; Start 04/02/19 at 02:30 IV Flush (NS 10 ml) 10 ml PRN PRN IV IV PROTOCOL; Start 04/03/19 at 17:00 Epoetin Jatinder-epbx (Retacrit (Esrd)) 10,000 unit AFTER EACH DIALYSIS SC ; Start 04/04/19 at 16:00 Miscellaneous Information 1 ea NOTE XX ; Start 04/05/19 at 11:30 Glucose (Glutose) 15 gm Q15M PRN PO DECREASED GLUCOSE; Start 04/05/19 at 11:30 Glucose (Glutose) 22.5 gm Q15M PRN PO DECREASED GLUCOSE; Start 04/05/19 at 11:30 Dextrose (D50w Syringe) 25 ml Q15M PRN IV DECREASED GLUCOSE; Start 04/05/19 at 11:30 Dextrose (D50w Syringe) 50 ml Q15M PRN IV DECREASED GLUCOSE; Start 04/05/19 at 11:30 Glucagon (Glucagen) 1 mg Q15M PRN IM DECREASED GLUCOSE; Start 04/05/19 at 11:30 Glucose (Glutose) 15 gm Q15M PRN BUCCAL DECREASED GLUCOSE; Start 04/05/19 at 11:30 Diagnostic Test (Pha) (Accu-Chek) 1 ea 02 XX Last administered on 04/06/19at 01:17; Admin Dose 1 EA; Start 04/06/19 at 02:00 Insulin Aspart (Novolog Insulin Pen) NOVOLOG *MILD* ALGORITHM WITH MEALS BEDTIME SC Last administered on 04/06/19at 08:45; Admin Dose 3 UNIT; Start 04/05/19 at 17:35 Insulin Glargine (Lantus) 20 units DAILY@2000 SC ; Start 04/06/19 at 20:00 Metronidazole 100 ml @ 100 mls/hr Q8 IVPB ; Start 04/06/19 at 10:00 JOAO RAHMAN NP Apr 06, 2019 11:38
[2019-04-06] MEDS ORDERED: ERTAPENEM SODIUM 1 GM in SOD CHLORIDE 0.9% 100 ML IVPB SCH (12:00)
[2019-04-06] MEDS: ERTAPENEM SODIUM 0.5 GM in SOD CHLORIDE 0.9% 100 ML IVPB SCH (13:15)
--- NOTE | 2019-04-06 18:11 | CONS ---
Assessment/Plan Assessment/Plan Assessment/Plan (Daily) IMPRESSION: 1. Severe sepsis. 2. Ascites. 3. Pneumonia. 4. Hepatocellular cancer with carcinomatosis. 5. Non-ST segment elevation myocardial infarction. 6. Diabetes mellitus. 7. Atrial fibrillation. 8. Congestive heart failure. 9. Dilated left-sided biliary system. 10. Anemia. Plan Patient seen 199 was 1000 and alpha-fetoprotein was within normal limit. This cancer cell marker are more in favor of cholangiocarcinoma rather than hepatocellular cancer. We will get ultrasound of the liver. Patient is not a candidate for MRCP because of pacemaker Consultation Date/Type/Reason Admit Date/Time Apr 01, 2019 at 17:43 Initial Consult Date 04/03/19 Requesting Provider: ADA RANGEL DO Date/Time of Note DATE: 04/06/19 TIME: 18:09 24 HR Interval Summary Constitutional: no complaints Exam/Review of Systems Exam Vitals Vital Signs Date Temp Pulse Resp B/P (MAP) Pulse Ox O2 O2 Flow FiO2 Time Delivery Rate 04/06/19 93 19 118/59 97 17:30 (78) 04/06/19 Room Air 17:00 04/06/19 97.6 12:00 Intake and Output 04/05/19 04/05/19 04/06/19 1515:00 23:00 07:00 IntakeIntake Total 443.125 ml 180 ml 30 ml OutputOutput Total 0 ml 0 ml 0 ml BalanceBalance 443.125 ml 180 ml 30 ml Constitutional: alert, oriented, well developed Psych: no complaints, nl mood/affect Head: normocephalic, atraumatic Eyes: nl conjunctiva, EOMI, nl lids, nl sclera, PERRL ENMT: nl external ears & nose, nl lips & teeth, nl nasal mucosa & septum Neck: supple, non-tender Respiratory: clear to auscultation, normal air movement Cardiovascular: regular rate and rhythm, nl pulses Gastrointestinal: soft, nl liver, spleen, non-tender Musculoskeletal: nl extremities to inspection, nl gait and stance Extremities: normal pulses Neurological: 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 MAKING MACHINE TENDER II-XII intact, nl mental status, nl speech, nl strength Skin: nl turgor; No rash or lesions Lymph: nl lymph nodes Results Result Diagram: 04/06/19 0400 04/06/19 0400 Results 24hrs Laboratory Tests Test 04/05/19 18:12 04/05/19 20:29 04/06/19 01:16 04/06/19 04:00 Bedside Glucose 234 H 222 H 231 H White Blood Count 12.5 #H Red Blood Count 2.76 L Hemoglobin 8.6 L Hematocrit 28.2 L Mean Corpuscular 102.2 H Volume Mean Corpuscular 31.2 Hemoglobin Mean Corpuscular 30.5 L Hemoglobin Concent Red Cell 16.4 H Distribution Width Platelet Count 191 # Mean Platelet Volume 10.3 Immature 1.400 H Granulocytes % Neutrophils % 84.3 H Lymphocytes % 6.2 L Monocytes % 7.8 Eosinophils % 0.1 Basophils % 0.2 Nucleated Red Blood 0.0 Cells % Immature 0.180 H Granulocytes # Neutrophils # 10.5 H Lymphocytes # 0.8 Monocytes # 1.0 H Eosinophils # 0.0 Basophils # 0.0 Nucleated Red Blood 0.0 Cells # Sodium Level 141 Potassium Level 4.1 Chloride Level 99 Carbon Dioxide Level 25 Anion Gap 17 H Blood Urea Nitrogen 52 H Creatinine 4.93 H Est Glomerular Filtrat Rate mL/min Glucose Level 224 H Calcium Level 8.4 Phosphorus Level 5.3 H Magnesium Level 2.3 Total Bilirubin 0.2 Direct Bilirubin 0.00 Indirect Bilirubin 0.2 Aspartate Amino 44 Transf (AST/SGOT) Alanine 44 Aminotransferase (AL T/SGPT) Alkaline Phosphatase 68 Total Protein 5.1 L Albumin 2.5 L Globulin 2.60 Albumin/Globulin 0.96 Ratio Alpha Fetoprotein < 0.83 Carcinoembryonic 13.9 H Antigen CA 19-9 Antigen 1000.0 H Test 04/06/19 08:42 04/06/19 11:25 04/06/19 17:48 Bedside Glucose 235 H 133 180 Medications Medication Current Medications Amiodarone HCl (Cordarone) 200 mg DAILY PO Last administered on 04/05/19at 09: 40; Admin Dose 200 MG; Start 04/02/19 at 09:00 Aspirin (Halfprin) 81 mg DAILY PO Last administered on 04/03/19at 09:11; Admin Dose 81 MG; Start 04/02/19 at 09:00 Atorvastatin Calcium (Lipitor) 20 mg QHS PO Last administered on 04/05/19at 20:30; Admin Dose 20 MG; Start 04/01/19 at 21:00 Docusate Sodium (Colace) 100 mg BID PO Last administered on 04/05/19at 20:30; Admin Dose 100 MG; Start 04/01/19 at 21:00 Midodrine (Proamatine) 5 mg DAILY PO Last administered on 04/05/19at 09:40; Admin Dose 5 MG; Start 04/02/19 at 09:00 Montelukast Sodium (Singulair) 10 mg QHS PO Last administered on 04/05/19at 20:30; Admin Dose 10 MG; Start 04/01/19 at 21:00 Sevelamer Carbonate (Renvela) 1.6 gm BID WITH MEALS PO Last administered on 04/05/19at 18:20; Admin Dose 1.6 GM; Start 04/01/19 at 21:00 Albuterol/ Ipratropium (Duoneb) 3 ml Q2H RESP THERAPY PRN NEB SHORTNESS OF BREATH; Start 04/01/19 at 21:00 Zolpidem Tartrate (Ambien) 5 mg QHS PRN PO INSOMNIA Last administered on 04/05/19at 22:19; Admin Dose 5 MG; Start 04/01/19 at 21:00 Norepinephrine 250 ml @ 1.875 mls/ hr TITRATE IV Last administered on 04/06/19at 11:37; Admin Dose 15 MLS/HR; Start 04/02/19 at 02:30 IV Flush (NS 10 ml) 10 ml PRN PRN IV IV PROTOCOL; Start 04/03/19 at 17:00 Epoetin Jatinder-epbx (Retacrit (Esrd)) 10,000 unit AFTER EACH DIALYSIS SC ; Start 04/04/19 at 16:00 Miscellaneous Information 1 ea NOTE XX ; Start 04/05/19 at 11:30 Glucose (Glutose) 15 gm Q15M PRN PO DECREASED GLUCOSE; Start 04/05/19 at 11:30 Glucose (Glutose) 22.5 gm Q15M PRN PO DECREASED GLUCOSE; Start 04/05/19 at 11:30 Dextrose (D50w Syringe) 25 ml Q15M PRN IV DECREASED GLUCOSE; Start 04/05/19 at 11:30 Dextrose (D50w Syringe) 50 ml Q15M PRN IV DECREASED GLUCOSE; Start 04/05/19 at 11:30 Glucagon (Glucagen) 1 mg Q15M PRN IM DECREASED GLUCOSE; Start 04/05/19 at 11:30 Glucose (Glutose) 15 gm Q15M PRN BUCCAL DECREASED GLUCOSE; Start 04/05/19 at 11:30 Diagnostic Test (Pha) (Accu-Chek) 1 ea 02 XX Last administered on 04/06/19at 01:17; Admin Dose 1 EA; Start 04/06/19 at 02:00 Insulin Aspart (Novolog Insulin Pen) NOVOLOG *MILD* ALGORITHM WITH MEALS BE DTIME SC Last administered on 04/06/19at 17:49; Admin Dose 1 UNIT; Start 04/05/19 at 17:35 Insulin Glargine (Lantus) 20 units DAILY@2000 SC ; Start 04/06/19 at 20:00 Ertapenem 0.5 gm/ Sodium Chloride 100 ml @ 200 mls/hr Q24H IVPB Last administered on 04/06/19at 13:15; Admin Dose 200 MLS/HR; Start 04/06/19 at 12:00 OLIVIA CANTOR MD Apr 06, 2019 18:11
[2019-04-06] MEDS: ATORVASTATIN 20 MG TAB PO SCH (20:11)
[2019-04-06] MEDS: MONTELUKAST 10 MG TAB PO SCH (20:11)
[2019-04-06] MEDS: INSULIN GLARGINE [LANTus] (100 UNITS/ML) SYG SC SCH (20:13)
[2019-04-07] VITALS (92 sets, daily range): BP systolic 59–149; BP diastolic 20–86; PULSE 66–112; RESP 16–34
[2019-04-07] MEDS: ACCU-CHEK XX SCH (02:00)
[2019-04-07] MEDS: NORepinephrine 8MG/250 ML (PMX 250 ML IV SCH (06:41)
--- NOTE | 2019-04-07 07:12 | CONS ---
Consult Date/Type/Reason Admit Date/Time Apr 01, 2019 at 17:43 Initial Consult Date 04/03/19 Type of Consultation: cv Requesting Provider: ADA RANGEL DO Date/Time of Note DATE: 04/07/19 TIME: 07:10 Subjective Cardiology follow-up progress note Subjective: Discussed with the staff. Telemetry was reviewed. Patient has remained in sinus rhythm./ demand pacing Patient remains in ICU and back on levophed drip due to recurrent hypotension No report of any chest pain or pressure Objective: General: no acute distress HEENT: NC/AT. pupils are equal. round. NECK: no stridor. CV: RRR. systolic murmur; no gallop or rubs. PULM: no wheezing or rhonchi. GI: SOFT, NT, ND, no rebound or guarding Extremity: trace B/L LE edema. no clubbing. neuro: awake Psych: calm rectal: deferred EKG shows ventricular paced rhythm Chest x-ray done 03/24/2019 shows: 1. New left-sided PICC in proximal SVC. 2. Persistent small left-sided pleural effusion with left lung base atelectasis/infiltrate. 3. Persistent patchy opacity of the right lung base. 4. Persistent cardiomegaly with mild vascular congestion CT 1. Again noted is severe dilatation of left intrahepatic biliary ducts. No gross evidence of hepatic mass is seen, though sensitivity is markedly limited without IV contrast. Findings remain concerning for obstructive mass in the central left hepatic lobe, as described in the prior CT report. 2. Findings compatible with peritoneal carcinomatosis. Moderate ascites, grossly stable. 3. Stable mild cardiomegaly. Coronary arterial and aortoiliac atherosclerotic calcifications. 4. Mild to moderate bilateral pleural effusions, grossly stable. Bibasilar atelectasis. 5. Cholelithiasis, without evidence for cholecystitis. 6. Chronic bilateral renal cortical thinning and atrophy, unchanged. Objective Vitals Vital Signs Date Temp Pulse Resp B/P (MAP) Pulse Ox O2 O2 Flow FiO2 Time Delivery Rate 04/07/19 86 24 103/78 97 Room Air 06:00 (86) 04/07/19 97.4 04:00 Intake and Output 04/06/19 04/06/19 04/07/19 1515:00 23:00 07:00 IntakeIntake Total 161.500 ml 73.16 ml 121.88 ml OutputOutput Total 2400 ml BalanceBalance -2238.500 ml 73.16 ml 121.88 ml Results/Medications Result Diagram: 04/07/19 0400 04/07/19 0400 Results 24 hrs Laboratory Tests Test 04/06/19 08:42 04/06/19 11:25 04/06/19 17:48 04/06/19 20:03 Bedside Glucose 235 H 133 180 179 Test 04/07/19 01:57 04/07/19 04:00 Bedside Glucose 184 White Blood Count 18.6 #H Red Blood Count 3.02 L Hemoglobin 9.3 L Hematocrit 30.8 L Mean Corpuscular 102.0 H Volume Mean Corpuscular 30.8 Hemoglobin Mean Corpuscular 30.2 L Hemoglobin Concent Red Cell 16.5 H Distribution Width Platelet Count 235 # Mean Platelet Volume 10.9 H Immature 2.000 H Granulocytes % Neutrophils % 81.5 H Lymphocytes % 7.4 L Monocytes % 8.8 Eosinophils % 0.1 Basophils % 0.2 Nucleated Red Blood 0.2 H Cells % Immature 0.370 H Granulocytes # Neutrophils # 15.1 H Lymphocytes # 1.4 Monocytes # 1.6 H Eosinophils # 0.0 Basophils # 0.0 Nucleated Red Blood 0.0 Cells # Sodium Level 144 Potassium Level 4.1 Chloride Level 103 Carbon Dioxide Level 27 Anion Gap 14 H Blood Urea Nitrogen 38 #H Creatinine 3.62 #H Est Glomerular Filtrat Rate mL/min Glucose Level 170 Calcium Level 8.6 Phosphorus Level 4.2 Magnesium Level 2.3 Home Meds Reported Medications Docusate Sodium* (Docusate Sodium*) 100 Mg Capsule, 100 MG PO BID, #60 CAP 04/01/19 Metoprolol Succinate* (Toprol XL*) 25 Mg Tab.sr.24h, 25 MG PO DAILY, #30 TAB 04/01/19 Aspirin* (Aspirin* EC) 81 Mg Tablet.dr, 81 MG PO DAILY, TAB 04/01/19 Fenofibrate, Micronized (Fenofibrate) 134 Mg Capsule, 134 MG PO DAILY, CAP 04/01/19 Sevelamer Carbonate* (Renvela*) 800 Mg Tablet, 1.6 GM PO BID, TAB 04/01/19 Amiodarone Hcl* (Amiodarone Hcl*) 200 Mg Tablet, 200 MG PO DAILY, #30 TAB TAKE Q TUES,THURS,SAT WITH DIALYSIS 04/01/19 Montelukast Sodium* (Montelukast Sodium*) 10 Mg Tablet, 10 MG PO QHS, #30 TAB 04/01/19 [Nephro-Elieser] No Conflict Check, 1 TAB PO DAILY 04/01/19 Sacubitril/Valsartan (Entresto 24 mg-26 mg Tablet) 1 Each Tablet, 1 EACH PO BID, TAB 04/01/19 Midodrine* (Midodrine*) 5 Mg Tablet, 5 MG PO DAILY, TAB 04/01/19 Furosemide* (Furosemide*) 40 Mg Tablet, 40 MG PO DAILY, TAB 04/01/19 Atorvastatin Calcium* (Atorvastatin Calcium*) 20 Mg Tablet, 20 MG PO QHS, #30 TAB 04/01/19 Medications Current Medications Amiodarone HCl (Cordarone) 200 mg DAILY PO Last administered on 04/05/19at 09:40; Admin Dose 200 MG; Start 04/02/19 at 09:00 Aspirin (Halfprin) 81 mg DAILY PO Last administered on 04/03/19at 09:11; Admin Dose 81 MG; Start 04/02/19 at 09:00 Atorvastatin Calcium (Lipitor) 20 mg QHS PO Last administered on 04/05/19at 20:30; Admin Dose 20 MG; Start 04/01/19 at 21:00 Docusate Sodium (Colace) 100 mg BID PO Last administered on 04/05/19at 20:30; Admin Dose 100 MG; Start 04/01/19 at 21:00 Midodrine (Proamatine) 5 mg DAILY PO Last administered on 04/05/19at 09:40; Admin Dose 5 MG; Start 04/02/19 at 09:00 Montelukast Sodium (Singulair) 10 mg QHS PO Last administered on 04/05/19at 20:30; Admin Dose 10 MG; Start 04/01/19 at 21:00 Sevelamer Carbonate (Renvela) 1.6 gm BID WITH MEALS PO Last administered on 04/05/19at 18:20; Admin Dose 1.6 GM; Start 04/01/19 at 21:00 Albuterol/ Ipratropium (Duoneb) 3 ml Q2H RESP THERAPY PRN NEB SHORTNESS OF BREATH; Start 04/01/19 at 21:00 Zolpidem Tartrate (Ambien) 5 mg QHS PRN PO INSOMNIA Last administered on 04/05/19at 22:19; Admin Dose 5 MG; Start 04/01/19 at 21:00 Norepinephrine 250 ml @ 1.875 mls/ hr TITRATE IV Last administered on 04/07/19at 06:41; Admin Dose 15 MLS/HR; Start 04/02/19 at 02:30 IV Flush (NS 10 ml) 10 ml PRN PRN IV IV PROTOCOL; Start 04/03/19 at 17:00 Epoetin Jatinder-epbx (Retacrit (Esrd)) 10,000 unit AFTER EACH DIALYSIS SC ; Start 04/04/19 at 16:00 Miscellaneous Information 1 ea NOTE XX ; Start 04/05/19 at 11:30 Glucose (Glutose) 15 gm Q15M PRN PO DECREASED GLUCOSE; Start 04/05/19 at 11:30 Glucose (Glutose) 22.5 gm Q15M PRN PO DECREASED GLUCOSE; Start 04/05/19 at 11:3 0 Dextrose (D50w Syringe) 25 ml Q15M PRN IV DECREASED GLUCOSE; Start 04/05/19 at 11:30 Dextrose (D50w Syringe) 50 ml Q15M PRN IV DECREASED GLUCOSE; Start 04/05/19 at 11:30 Glucagon (Glucagen) 1 mg Q15M PRN IM DECREASED GLUCOSE; Start 04/05/19 at 11:30 Glucose (Glutose) 15 gm Q15M PRN BUCCAL DECREASED GLUCOSE; Start 04/05/19 at 11:30 Diagnostic Test (Pha) (Accu-Chek) 1 ea 02 XX Last administered on 04/06/19at 01:17; Admin Dose 1 EA; Start 04/06/19 at 02:00 Insulin Aspart (Novolog Insulin Pen) NOVOLOG *MILD* ALGORITHM WITH MEALS BEDTIME SC Last administered on 04/06/19at 17:49; Admin Dose 1 UNIT; Start 04/05/19 at 17:35 Insulin Glargine (Lantus) 20 units DAILY@2000 SC Last administered on 04/06/19at 20:13; Admin Dose 20 UNITS; Start 04/06/19 at 20:00 Ertapenem 0.5 gm/ Sodium Chloride 100 ml @ 200 mls/hr Q24H IVPB Last administered on 04/06/19at 13:15; Admin Dose 200 MLS/HR; Start 04/06/19 at 12:00 Assessment/Plan Hospital Course (Demo Recall) Mildly abnormal troponin secondary to sepsis renal failure etc. Sepsis/pneumonia GNR bacteremia Pneumonia History of hepatocellular cancer Renal failure dialysis dependent History of arrhythmia probably sick sinus syndrome versus heart block status post permanent pacemaker Encephalopathy Paroxysmal atrial fibrillation Recommendations: aspirin as long as ok with GI and no active bleeding is noted Antibiotic management as per internal medicine and consultants Continue to be hemodialysis as tolerated Unable to tolerate beta-damian due to his low blood pressure Milronone would be continued levophed as needed f/u GI consultation rec Thank you for this referral. We will continue to follow along with you as needed over the weekend JOSE D SOLOMON MD [facility] JOSE D SOLOMON MD Apr 07, 2019 07:12
[2019-04-07] MEDS: INSULIN ASPART [NOVOLOG] 3 ML PEN SC SCH ×4 (08:16→21:45)
[2019-04-07] MEDS: MIDODRINE 5 MG TAB PO SCH (08:20)
[2019-04-07] MEDS: DOCUSATE SODIUM 100 MG CAP PO SCH ×2 (08:20→21:00)
[2019-04-07] MEDS: SEVELAMER CARBONATE 0.8 GM PKT PO SCH ×2 (08:20→16:56)
[2019-04-07] MEDS: AMIODARONE 200 MG TAB PO SCH (08:21)
[2019-04-07] MEDS: ASPIRIN (EC) 81 MG TAB PO SCH (08:21)
[2019-04-07] MEDS: BALSAM PERU/CASTOR OIL 60 GM TUBE TOP SCH ×2 (08:22→21:45)
--- NOTE | 2019-04-07 08:37 | PN ---
DATE: 04/07/2019 SUBJECTIVE: The patient remains critically ill on pressor support. No other acute events noted. No hemoptysis, hematemesis or hematochezia. OBJECTIVE: VITAL SIGNS: Blood pressure is 103/78, respirations 24, pulse 86, temperature 98.6. HEENT: Head is normocephalic. NECK: Supple. HEART: Regular rate. LUNGS: Show diminished breath sounds at the base. ABDOMEN: Soft, nontender to palpation without rebound or guarding. EXTREMITIES: Negative for clubbing, cyanosis. Trace edema. DERMATOLOGIC: No rashes. MUSCULOSKELETAL: No joint effusion. NEUROLOGIC: No change in exam. MEDICATIONS: Reviewed. LABORATORY DATA: Reviewed. ASSESSMENT AND PLAN: 1. Septic shock, etiology is secondary to bacteremia, gram-negative rods. Underlying source is uncl ear, possible intra-abdominal. The patient remains on pressor support, antibiotic therapy. We will continue. Follow up with Infectious Disease. Repeat cultures have been negative. 2. 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 The patie nt's tumor markers CA 19-9 is markedly elevated. Plan is to place an oncology consult for evaluation . We will continue to follow up with GI for recommendations. Monitor closely. 3. Anemia. Continue to monitor hemoglobin and hematocrit levels. Continue Epogen as needed. 4. Hematochezia. Continue to monitor hemoglobin and hematocrit levels. 5. End-stage renal disease. The patient had hemodialysis yesterday. Plan is for dialysis tomorrow. 6. Mineral bone disorder. Monitor calcium and phosphorus levels. 7. Elevated troponin likely non-ST elevation myocardial infarction type 2. Continue to monitor. 8. Diabetes. Continue current insulin regimen. 9. Arrhythmia with history of pacemaker. Continue to monitor. Follow up with Cardiology. 10. Volume overload. Continue ultrafiltration with dialysis. 11. Acute encephalopathy, etiology is toxic metabolic. Continue to monitor. Dictated By: ADA RANGEL DO NR/NTS Conf#: [id number] DID#: [id number] CC: TRAE TRAVIS MD; DYLAN GREENE MD;*EndCC*
--- NOTE | 2019-04-07 09:36 | CONS ---
Assessment/Plan Assessment/Plan Assessment/Plan (Daily) Assessment and recommendations; 1. Patient admitted with sepsis with bacteremia currently on appropriate antimicrobial regimen. Most recent blood cultures are negative. Source is unclear. Possibly line associated. 2. Chronic renal failure, dialysis dependent. 3. Hypertension with interval improvement. Patient however does get hypotensive during dialysis requiring Levophed. 4. History of recently diagnosed hepatocellular carcinoma. 5. Diabetes. 6. CHF. Clinically compensated. 7. History of pacemaker placement in the past. 8. Persistent leukocytosis. Continue current supportive care. Antimicrobial regimen per ID recommendations. Dialysis per [employer]. Consultation Date/Type/Reason Admit Date/Time Apr 01, 2019 at 17:43 Initial Consult Date 04/03/19 Type of Consult Pulmonary/critical care Patient is a pleasant 83-year-old gentleman who was sent over from dialysis center because of hypotension. Patient been diagnosed with sepsis, has been adequately fluid resuscitated and currently on Levophed drip. Patient remains completely awake and alert. Denies any shortness of breath, fever, chest pain, nausea vomiting. Past medical history; 1. End-stage renal disease, on hemodialysis. 2. Liver cancer. 3. Anemia of chronic disease. 4. Chronic atrial fibrillation. History of pacemaker placement. 5. CHF. Medications; reviewed. Allergies; none. Family history; noncontributory. Occupational history; noncontributory. Review of systems; denies any headache, seizures. Shortness of breath has improved. Denies any abdominal pain, nausea vomiting. Denies any edema. Any fever or chills. Denies any seizures. General exam; elderly male, laying comfortably in bed on room air. Currently in no distress. Requesting Provider: ADA RANGEL DO Date/Time of Note DATE: 04/07/19 TIME: 09:33 24 HR Interval Summary Free Text/Dictation Patient's condition is stable. Has remained hemodynamically stable. General exam; elderly male, currently no distress. Exam/Review of Systems Exam Vitals Vital Signs Date Temp Pulse Resp B/P (MAP) Pulse Ox O2 O2 Flow FiO2 Time Delivery Rate 04/07/19 97.3 79 19 75/43 (54) 93 Room Air 08:00 Intake and Output 04/06/19 04/06/19 04/07/19 1515:00 23:00 07:00 IntakeIntake Total 161.500 ml 73.16 ml 121.88 ml OutputOutput Total 2400 ml BalanceBalance -2238.500 ml 73.16 ml 121.88 ml Exam H EENT exam; supple neck, positive JVD. No lymphadenopathy. Midline trachea. No thyromegaly. No neck masses. Pupils are small bilaterally. Chest exam; diminished but clear breath sounds. S1-S2 audible, no murmurs. Pacemaker in left chest wall. Paced rhythm. Abdomen exam; soft, nontender. No organomegaly. Bowel sounds audible. Extremity exam; no peripheral edema. [employer] exam; patient awake and appropriately responsive. Results Result Diagram: 04/07/19 0400 04/07/19 0400 Results 24hrs Laboratory Tests Test 04/06/19 11:25 04/06/19 17:48 04/06/19 20:03 04/07/19 01:57 Bedside Glucose 133 180 179 184 Test 04/07/19 04:00 04/07/19 08:13 White Blood Count 18.6 #H Red Blood Count 3.02 L Hemoglobin 9.3 L Hematocrit 30.8 L Mean Corpuscular 102.0 H Volume Mean Corpuscular 30.8 Hemoglobin Mean Corpuscular 30.2 L Hemoglobin Concent Red Cell 16.5 H Distribution Width Platelet Count 235 # Mean Platelet Volume 10.9 H Immature 2.000 H Granulocytes % Neutrophils % 81.5 H Lymphocytes % 7.4 L Monocytes % 8.8 Eosinophils % 0.1 Basophils % 0.2 Nucleated Red Blood 0.2 H Cells % Immature 0.370 H Granulocytes # Neutrophils # 15.1 H Lymphocytes # 1.4 Monocytes # 1.6 H Eosinophils # 0.0 Basophils # 0.0 Nucleated Red Blood 0.0 Cells # Sodium Level 144 Potassium Level 4.1 Chloride Level 103 Carbon Dioxide Level 27 Anion Gap 14 H Blood Urea Nitrogen 38 #H Creatinine 3.62 #H Est Glomerular Filtrat Rate mL/min Glucose Level 170 Calcium Level 8.6 Phosphorus Level 4.2 Magnesium Level 2.3 Bedside Glucose 156 Medications Medication Current Medications Amiodarone HCl (Cordarone) 200 mg DAILY PO Last administered on 04/07/19at 08:21; Admin Dose 200 MG; Start 04/02/19 at 09:00 Aspirin (Halfprin) 81 mg DAILY PO Last administered on 04/07/19at 08:21; Admin Dose 81 MG; Start 04/02/19 at 09:00 Atorvastatin Calcium (Lipitor) 20 mg QHS PO Last administered on 04/05/19at 20:30; Admin Dose 20 MG; Start 04/01/19 at 21:00 Docusate Sodium (Colace) 100 mg BID PO Last administered on 04/07/19at 08:20; Admin Dose 100 MG; Start 04/01/19 at 21:00 Midodrine (Proamatine) 5 mg DAILY PO Last administered on 04/07/19at 08:20; Admin Dose 5 MG; Start 04/02/19 at 09:00 Montelukast Sodium (Singulair) 10 mg QHS PO Last administered on 04/05/19 20:30; Admin Dose 10 MG; Start 04/01/19 at 21:00 Sevelamer Carbonate (Renvela) 1.6 gm BID WITH MEALS PO Last administered on 04/07/19 08:20; Admin Dose 1.6 GM; Start 04/01/19 at 21:00 Albuterol/ Ipratropium (Duoneb) 3 ml Q2H RESP THERAPY PRN NEB SHORTNESS OF BREATH; Start 04/01/19 at 21:00 Zolpidem Tartrate (Ambien) 5 mg QHS PRN PO INSOMNIA Last administered on 03/18 07/06at 22:19; Admin Dose 5 MG; Start 04/01/19 at 21:00 Norepinephrine 250 ml @ 1.875 mls/ hr TITRATE IV Last administered on 04/07/19at 06:41; Admin Dose 15 MLS/HR; Start 04/02/19 at 02:30 IV Flush (NS 10 ml) 10 ml PRN PRN IV IV PROTOCOL; Start 04/03/19 at 17:00 Epoetin Jatinder-epbx (Retacrit (Esrd)) 10,000 unit AFTER EACH DIALYSIS SC ; Start 04/04/19 at 16:00 Miscellaneous Information 1 ea NOTE XX ; Start 04/05/19 at 11:30 Glucose (Glutose) 15 gm Q15M PRN PO DECREASED GLUCOSE; Start 04/05/19 at 11:30 Glucose (Glutose) 22.5 gm Q15M PRN PO DECREASED GLUCOSE; Start 04/05/19 at 11:30 Dextrose (D50w Syringe) 25 ml Q15M PRN IV DECREASED GLUCOSE; Start 04/05/19 at 11:30 Dextrose (D50w Syringe) 50 ml Q15M PRN IV DECREASED GLUCOSE; Start 04/05/19 at 11:30 Glucagon (Glucagen) 1 mg Q15M PRN IM DECREASED GLUCOSE; Start 04/05/19 at 11:30 Glucose (Glutose) 15 gm Q15M PRN BUCCAL DECREASED GLUCOSE; Start 04/05/19 at 11:30 Diagnostic Test (Pha) (Accu-Chek) 1 ea 02 XX Last administered on 04/06/19at 01:17; Admin Dose 1 EA; Start 04/06/19 at 02:00 Insulin Aspart (Novolog Insulin Pen) NOVOLOG *MILD* ALGORITHM WITH MEALS BEDTIME SC Last administered on 04/07/19at 08:16; Admin Dose 1 UNIT; Start 04/05/19 at 17:35 Insulin Glargine (Lantus) 20 units DAILY@2000 SC Last administered on 04/06/19at 20:13; Admin Dose 20 UNITS; Start 04/06/19 at 20:00 Ertapenem 0.5 gm/ Sodium Chloride 100 ml @ 200 mls/hr Q24H IVPB Last administered on 04/06/19at 13:15; Admin Dose 200 MLS/HR; Start 04/06/19 at 12:00 NANCY LIRA Apr 07, 2019 09:36
--- NOTE | 2019-04-07 13:07 | CONS ---
Assessment/Plan Assessment/Plan Hospital Course (Demo Recall) 83 yo with multiple medical problems admitted for hypotension and ascites, CT showed peritoneal carcinomatosis, there is also severe dilatation of left intrahepatic biliary ducts. Ca 19-9 is very elevated - he had paracentesis at outside hospital, if cytology was performed on that it would be helpful to have that information -at this time he is in ICU and critical -as part of w/u recommend CT CAP with contrast -has been seen by GI, Dr Schuster. AFP is not elevated so less likely to be hepat ocellular ca and more likely to be cholangiocarcinoma -cholangiocarcinoma carries poor prognosis. once pt is more stable, if at that time family and pt want to pursue diagnosis he would likely need ERCP and biopsy - Consultation Date/Type/Reason Admit Date/Time Apr 01, 2019 at 17:43 Date/Time of Note DATE: 04/07/19 TIME: 13:04 Hx of Present Illness The patient is an 83-year-old gentleman with past medical history of end-stage renal disease on dialysis, hypertension, atrial fibrillation, congestive heart failure. Presented to ER due to hypotension on HD. In the Emergency Room, noted to have pneumonia. The patient was recently at [facility] for a week. Discharged just several days ago, hospitalization was for heart failure. Also had CT abdomen which showed likely hepatic cell carcinoma and peritoneal carcinomatosis, had 4 liter paracentesis on 03/27/2019. CT AP here: IMPRESSION: 1. Again noted is severe dilatation of left intrahepatic biliary ducts. No gross evidence of hepatic mass is seen, though sensitivity is markedly limited without IV contrast. Findings remain concerning for obstructive mass in the central left hepatic lobe, as described in the prior CT report. 2. Findings compatible with peritoneal carcinomatosis. Moderate ascites, grossly stable. 3. Stable mild cardiomegaly. Coronary arterial and aortoiliac atherosclerotic calcifications. 4. Mild to moderate bilateral pleural effusions, grossly stable. Bibasilar atelectasis. 5. Cholelithiasis, without evidence for cholecystitis. 6. Chronic bilateral renal cortical thinning and atrophy, unchanged. Labs show macrocytic anemia and CA 19-9 >1000 He is in the ICU, critically ill on pressor support Subjective hx not possible: pt critical status Constitutional: disoriented Eyes: no complaints ENT: no complaints Cardiovascular: no complaints Gastrointestinal: no complaints Genitourinary: no complaints Musculoskeletal: no complaints Past Medical History Home Meds Reported Medications Docusate Sodium* (Docusate Sodium*) 100 Mg Capsule, 100 MG PO BID, #60 CAP 04/01/19 Metoprolol Succinate* (Toprol XL*) 25 Mg Tab.sr.24h, 25 MG PO DAILY, #30 TAB 04/01/19 Aspirin* (Aspirin* EC) 81 Mg Tablet.dr, 81 MG PO DAILY, TAB 04/01/19 Fenofibrate, Micronized (Fenofibrate) 134 Mg Capsule, 134 MG PO DAILY, CAP 04/01/19 Sevelamer Carbonate* (Renvela*) 800 Mg Tablet, 1.6 GM PO BID, TAB 04/01/19 Amiodarone Hcl* (Amiodarone Hcl*) 200 Mg Tablet, 200 MG PO DAILY, #30 TAB TAKE Q TU,TH,SAT WITH DIALYSIS 04/01/19 Montelukast Sodium* (Montelukast Sodium*) 10 Mg Tablet, 10 MG PO QHS, #30 TAB 04/01/19 [Nephro-Elieser] No Conflict Check, 1 TAB PO DAILY 04/01/19 Sacubitril/Valsartan (Entresto 24 mg-26 mg Tablet) 1 Each Tablet, 1 EACH PO BID, TAB 04/01/19 Midodrine* (Midodrine*) 5 Mg Tablet, 5 MG PO DAILY, TAB 04/01/19 Furosemide* (Furosemide*) 40 Mg Tablet, 40 MG PO DAILY, TAB 04/01/19 Atorvastatin Calcium* (Atorvastatin Calcium*) 20 Mg Tablet, 20 MG PO QHS, #30 TAB 04/01/19 Medications Current Medications Amiodarone HCl (Cordarone) 200 mg DAILY PO Last administered on 04/07/19at 08:21; Admin Dose 200 MG; Start 04/02/19 at 09:00 Aspirin (Halfprin) 81 mg DAILY PO Last administered on 04/07/19at 08:21; Admin Dose 81 MG; Start 04/02/19 at 09:00 Atorvastatin Calcium (Lipitor) 20 mg QHS PO Last administered on 04/05/19at 20:30; Admin Dose 20 MG; Start 04/01/19 at 21:00 Docusate Sodium (Colace) 100 mg BID PO Last administered on 04/07/19at 08:20; Admin Dose 100 MG; Start 04/01/19 at 21:00 Midodrine (Proamatine) 5 mg DAILY PO Last administered on 04/07/19at 08:20; Admin Dose 5 MG; Start 04/02/19 at 09:00 Montelukast Sodium (Singulair) 10 mg QHS PO Last administered on 04/05/19at 20:30; Admin Dose 10 MG; Start 04/01/19 at 21:00 Sevelamer Carbonate (Renvela) 1.6 gm BID WITH MEALS PO Last administered on 04/07/19at 08:20; Admin Dose 1.6 GM; Start 04/01/19 at 21:00 Albuterol/ Ipratropium (Duoneb) 3 ml Q2H RESP THERAPY PRN NEB SHORTNESS OF BREATH; Start 04/01/19 at 21:00 Zolpidem Tartrate (Ambien) 5 mg QHS PRN PO INSOMNIA Last administered on 04/05/19at 22:19; Admin Dose 5 MG; Start 04/01/19 at 21:00 Norepinephrine 250 ml @ 1.875 mls/ hr TITRATE IV Last administered on 04/07/19at 06:41; Admin Dose 15 MLS/HR; Start 04/02/19 at 02:30 IV Flush (NS 10 ml) 10 ml PRN PRN IV IV PROTOCOL; Start 04/03/19 at 17:00 Epoetin Jatinder-epbx (Retacrit (Esrd)) 10,000 unit AFTER EACH DIALYSIS SC ; Start 04/04/19 at 16:00 Miscellaneous Information 1 ea NOTE XX ; Start 04/05/19 at 11:30 Glucose (Glutose) 15 gm Q15M PRN PO DECREASED GLUCOSE; Start 04/05/19 at 11:30 Glucose (Glutose) 22.5 gm Q15M PRN PO DECREASED GLUCOSE; Start 04/05/19 at 11 :30 Dextrose (D50w Syringe) 25 ml Q15M PRN IV DECREASED GLUCOSE; Start 04/05/19 at 11:30 Dextrose (D50w Syringe) 50 ml Q15M PRN IV DECREASED GLUCOSE; Start 04/05/19 at 11:30 Glucagon (Glucagen) 1 mg Q15M PRN IM DECREASED GLUCOSE; Start 04/05/19 at 11:30 Glucose (Glutose) 15 gm Q15M PRN BUCCAL DECREASED GLUCOSE; Start 04/05/19 at 11:30 Diagnostic Test (Pha) (Accu-Chek) 1 ea 02 XX Last administered on 04/06/19at 01:17; Admin Dose 1 EA; Start 04/06/19 at 02:00 Insulin Aspart (Novolog Insulin Pen) NOVOLOG *MILD* ALGORITHM WITH MEALS BEDTIME SC Last administered on 04/07/19at 12:35; Admin Dose 1 UNIT; Start 04/05/19 at 17:35 Insulin Glargine (Lantus) 20 units DAILY@2000 SC Last administered on 04/06/19at 20:13; Admin Dose 20 UNITS; Start 04/06/19 at 20:00 Ertapenem 0.5 gm/ Sodium Chloride 100 ml @ 200 mls/hr Q24H IVPB Last administered on 04/06/19at 13:15; Admin Dose 200 MLS/HR; Start 04/06/19 at 12:00 Allergies: Coded Allergies: No Known Allergy (Unverified , 04/01/19) Social History Smoking Status: Former smoker Exam/Review of Systems Exam Vitals Vital Signs Date Temp Pulse Resp B/P (MAP) Pulse Ox O2 O2 Flow FiO2 Time Delivery Rate 04/07/19 89 23 132/59 91 Room Air 10:45 (83) 04/07/19 97.3 08:00 Intake and Output 04/06/19 04/06/19 04/07/19 1515:00 23:00 07:00 IntakeIntake Total 161.500 ml 73.16 ml 136.88 ml OutputOutput Total 2400 ml BalanceBalance -2238.500 ml 73.16 ml 136.88 ml Constitutional: distress Psych: no complaints, nl mood/affect Respiratory: normal air movement Cardiovascular: regular rate and rhythm, nl pulses Gastrointestinal: distended Results Result Diagram: 04/07/19 0400 04/07/19 0400 Results 24hrs Laboratory Tests Test 04/06/19 17:48 04/06/19 20:03 04/07/19 01:57 04/07/19 04:00 Bedside Glucose 180 179 184 White Blood Count 18.6 #H Red Blood Count 3.02 L Hemoglobin 9.3 L Hematocrit 30.8 L Mean Corpuscular 102.0 H Volume Mean Corpuscular 30.8 Hemoglobin Mean Corpuscular 30.2 L Hemoglobin Concent Red Cell 16.5 H Distribution Width Platelet Count 235 # Mean Platelet Volume 10.9 H Immature 2.000 H Granulocytes % Neutrophils % 81.5 H Lymphocytes % 7.4 L Monocytes % 8.8 Eosinophils % 0.1 Basophils % 0.2 Nucleated Red Blood 0.2 H Cells % Immature 0.370 H Granulocytes # Neutrophils # 15.1 H Lymphocytes # 1.4 Monocytes # 1.6 H Eosinophils # 0.0 Basophils # 0.0 Nucleated Red Blood 0.0 Cells # Sodium Level 144 Potassium Level 4.1 Chloride Level 103 Carbon Dioxide Level 27 Anion Gap 14 H Blood Urea Nitrogen 38 #H Creatinine 3.62 #H Est Glomerular Filtrat Rate mL/min Glucose Level 170 Calcium Level 8.6 Phosphorus Level 4.2 Magnesium Level 2.3 Test 04/07/19 08:13 04/07/19 12:29 Bedside Glucose 156 167 Medications Medication Current Medications Amiodarone HCl (Cordarone) 200 mg DAILY PO Last administered on 04/07/19 08:21; Admin Dose 200 MG; Start 04/02/19 at 09:00 Aspirin (Halfprin) 81 mg DAILY PO Last administered on 04/07/19 08:21; Admin Dose 81 MG; Start 04/02/19 at 09:00 Atorvastatin Calcium (Lipitor) 20 mg QHS PO Last administered on 04/05/19 20:30; Admin Dose 20 MG; Start 04/01/19 at 21:00 Docusate Sodium (Colace) 100 mg BID PO Last administered on 04/07/19 08:20; Admin Dose 100 MG; Start 04/01/19 at 21:00 Midodrine (Proamatine) 5 mg DAILY PO Last administered on 04/07/19 08:20; Admin Dose 5 MG; Start 04/02/19 at 09:00 Montelukast Sodium (Singulair) 10 mg QHS PO Last administered on 04/05/19 20:30; Admin Dose 10 MG; Start 04/01/19 at 21:00 Sevelamer Carbonate (Renvela) 1.6 gm BID WITH MEALS PO Last administered on 04/07/19 08:20; Admin Dose 1.6 GM; Start 04/01/19 at 21:00 Albuterol/ Ipratropium (Duoneb) 3 ml Q2H RESP THERAPY PRN NEB SHORTNESS OF BREATH; Start 04/01/19 at 21:00 Zolpidem Tartrate (Ambien) 5 mg QHS PRN PO INSOMNIA Last administered on 04/05/19at 22:19; Admin Dose 5 MG; Start 04/01/19 at 21:00 Norepinephrine 250 ml @ 1.875 mls/ hr TITRATE IV Last administered on 04/07/19at 06:41; Admin Dose 15 MLS/HR; Start 04/02/19 at 02:30 IV Flush (NS 10 ml) 10 ml PRN PRN IV IV PROTOCOL; Start 04/03/19 at 17:00 Epoetin Jatinder-epbx (Retacrit (Esrd)) 10,000 unit AFTER EACH DIALYSIS SC ; Start 04/04/19 at 16:00 Miscellaneous Information 1 ea NOTE XX ; Start 04/05/19 at 11:30 Glucose (Glutose) 15 gm Q15M PRN PO DECREASED GLUCOSE; Start 04/05/19 at 11:30 Glucose (Glutose) 22.5 gm Q15M PRN PO DECREASED GLUCOSE; Start 04/05/19 at 11:30 Dextrose (D50w Syringe) 25 ml Q15M PRN IV DECREASED GLUCOSE; Start 04/05/19 at 11:30 Dextrose (D50w Syringe) 50 ml Q15M PRN IV DECREASED GLUCOSE; Start 04/05/19 at 11:30 Glucagon (Glucagen) 1 mg Q15M PRN IM DECREASED GLUCOSE; Start 04/05/19 at 11:30 Glucose (Glutose) 15 gm Q15M PRN BUCCAL DECREASED GLUCOSE; Start 04/05/19 at 11:30 Diagnostic Test (Pha) (Accu-Chek) 1 ea 02 XX Last administered on 04/06/19at 01:17; Admin Dose 1 EA; Start 04/06/19 at 02:00 Insulin Aspart (Novolog Insulin Pen) NOVOLOG *MILD* ALGORITHM WITH MEALS BEDTIME SC Last administered on 04/07/19at 12:35; Admin Dose 1 UNIT; Start 04/05/19 at 17:35 Insulin Glargine (Lantus) 20 units DAILY@2000 SC Last administered on 04/06/19at 20:13; Admin Dose 20 UNITS; Start 04/06/19 at 20:00 Ertapenem 0.5 gm/ Sodium Chloride 100 ml @ 200 mls/hr Q24H IVPB Last administered on 04/06/19at 13:15; Admin Dose 200 MLS/HR; Start 04/06/19 at 12:00 TAMMY NEWSOME Apr 07, 2019 13:07
--- NOTE | 2019-04-07 14:09 | CONS ---
Assessment/Plan Assessment/Plan Hospital Course (Demo Recall) No events overnight, patient is sleeping, he is on Levophed drip, no fevers. WBC 18.6 platelets 235 neutrophils 81.5 Microbiology: Blood culture on admission grew Bacteroides fragilis Indwelling's right upper extremity AV fistula Antimicrobials: Invanz Physical examination: This is an obese well-developed chronically ill elderly [place] man who is in no distress. Head atraumatic normocephalic neck is supple chest rise symmetrical breath sounds diminished bases. Heart: S1-S2. Tachycardic abdomen soft obese bowel sounds hypoactive extremities without cyanosis, trace edema Assessment: 1. Sepsis with shock 2. Bacteremia ?source 3. End-stage renal disease, hemodialysis dependent 4. Recently diagnosed hepatocellular carcinoma, poss obstructing mass and peritoneal carcinomatosis 5. Coronary artery disease status post permanent pacemaker 6. Diabetes 7. Atrial fibrillation Plan: Doing poorly, continue abx, f/u GI/oncology rec-s Consultation Date/Type/Reason Admit Date/Time Apr 01, 2019 at 17:43 Initial Consult Date 04/03/19 Type of Consult id Requesting Provider: ADA RANGEL DO Date/Time of Note DATE: 04/07/19 TIME: 14:06 Exam/Review of Systems Exam Vitals Vital Signs Date Temp Pulse Resp B/P (MAP) Pulse Ox O2 O2 Flow FiO2 Time Delivery Rate 04/07/19 89 23 132/59 91 Room Air 10:45 (83) 04/07/19 97.3 08:00 Intake and Output 04/06/19 04/06/19 04/07/19 1515:00 23:00 07:00 IntakeIntake Total 161.500 ml 73.16 ml 136.88 ml OutputOutput Total 2400 ml BalanceBalance -2238.500 ml 73.16 ml 136.88 ml Results Result Diagram: 04/07/19 0400 04/07/19 0400 Results 24hrs Laboratory Tests Test 04/06/19 17:48 04/06/19 20:03 04/07/19 01:57 04/07/19 04:00 Bedside Glucose 180 179 184 White Blood Count 18.6 #H Red Blood Count 3.02 L Hemoglobin 9.3 L Hematocrit 30.8 L Mean Corpuscular 102.0 H Volume Mean Corpuscular 30.8 Hemoglobin Mean Corpuscular 30.2 L Hemoglobin Concent Red Cell 16.5 H Distribution Width Platelet Count 235 # Mean Platelet Volume 10.9 H Immature 2.000 H Granulocytes % Neutrophils % 81.5 H Lymphocytes % 7.4 L Monocytes % 8.8 Eosinophils % 0.1 Basophils % 0.2 Nucleated Red Blood 0.2 H Cells % Immature 0.370 H Granulocytes # Neutrophils # 15.1 H Lymphocytes # 1.4 Monocytes # 1.6 H Eosinophils # 0.0 Basophils # 0.0 Nucleated Red Blood 0.0 Cells # Sodium Level 144 Potassium Level 4.1 Chloride Level 103 Carbon Dioxide Level 27 Anion Gap 14 H Blood Urea Nitrogen 38 #H Creatinine 3.62 #H Est Glomerular Filtrat Rate mL/min Glucose Level 170 Calcium Level 8.6 Phosphorus Level 4.2 Magnesium Level 2.3 Test 04/07/19 08:13 04/07/19 12:29 Bedside Glucose 156 167 Medications Medication Current Medications Amiodarone HCl (Cordarone) 200 mg DAILY PO Last administered on 04/07/19 08:21; Admin Dose 200 MG; Start 04/02/19 at 09:00 Aspirin (Halfprin) 81 mg DAILY PO Last administered on 04/07/19 08:21; Admin Dose 81 MG; Start 04/02/19 at 09:00 Atorvastatin Calcium (Lipitor) 20 mg QHS PO Last administered on 04/05/19 20:30; Admin Dose 20 MG; Start 04/01/19 at 21:00 Docusate Sodium (Colace) 100 mg BID PO Last administered on 04/07/19 08:20; Admin Dose 100 MG; Start 04/01/19 at 21:00 Midodrine (Proamatine) 5 mg DAILY PO Last administered on 04/07/19 08:20; Admin Dose 5 MG; Start 04/02/19 at 09:00 Montelukast Sodium (Singulair) 10 mg QHS PO Last administered on 04/05/19 20:30; Admin Dose 10 MG; Start 04/01/19 at 21:00 Sevelamer Carbonate (Renvela) 1.6 gm BID WITH MEALS PO Last administered on 04/07/19 08:20; Admin Dose 1.6 GM; Start 04/01/19 at 21:00 Albuterol/ Ipratropium (Duoneb) 3 ml Q2H RESP THERAPY PRN NEB SHORTNESS OF B REATH; Start 04/01/19 at 21:00 Zolpidem Tartrate (Ambien) 5 mg QHS PRN PO INSOMNIA Last administered on 04/05/19at 22:19; Admin Dose 5 MG; Start 04/01/19 at 21:00 Norepinephrine 250 ml @ 1.875 mls/ hr TITRATE IV Last administered on 04/07/19at 06:41; Admin Dose 15 MLS/HR; Start 04/02/19 at 02:30 IV Flush (NS 10 ml) 10 ml PRN PRN IV IV PROTOCOL; Start 04/03/19 at 17:00 Epoetin Jatinder-epbx (Retacrit (Esrd)) 10,000 unit AFTER EACH DIALYSIS SC ; Start 04/04/19 at 16:00 Miscellaneous Information 1 ea NOTE XX ; Start 04/05/19 at 11:30 Glucose (Glutose) 15 gm Q15M PRN PO DECREASED GLUCOSE; Start 04/05/19 at 11:30 Glucose (Glutose) 22.5 gm Q15M PRN PO DECREASED GLUCOSE; Start 04/05/19 at 11:30 Dextrose (D50w Syringe) 25 ml Q15M PRN IV DECREASED GLUCOSE; Start 04/05/19 at 11:30 Dextrose (D50w Syringe) 50 ml Q15M PRN IV DECREASED GLUCOSE; Start 04/05/19 at 11:30 Glucagon (Glucagen) 1 mg Q15M PRN IM DECREASED GLUCOSE; Start 04/05/19 at 11:30 Glucose (Glutose) 15 gm Q15M PRN BUCCAL DECREASED GLUCOSE; Start 04/05/19 at 11:30 Diagnostic Test (Pha) (Accu-Chek) 1 ea 02 XX Last administered on 04/06/19at 01:17; Admin Dose 1 EA; Start 04/06/19 at 02:00 Insulin Aspart (Novolog Insulin Pen) NOVOLOG *MILD* ALGORITHM WITH MEALS BEDTIME SC Last administered on 04/07/19at 12:35; Admin Dose 1 UNIT; Start 04/05/19 at 17:35 Insulin Glargine (Lantus) 20 units DAILY@2000 SC Last administered on 04/06/19at 20:13; Admin Dose 20 UNITS; Start 04/06/19 at 20:00 Ertapenem 0.5 gm/ Sodium Chloride 100 ml @ 200 mls/hr Q24H IVPB Last administered on 04/06/19at 13:15; Admin Dose 200 MLS/HR; Start 04/06/19 at 12:00 JOAO RAHMAN NP Apr 07, 2019 14:09
[2019-04-07] MEDS: ERTAPENEM SODIUM 0.5 GM in SOD CHLORIDE 0.9% 100 ML IVPB SCH (14:17)
--- NOTE | 2019-04-07 16:58 | CONS ---
Assessment/Plan Assessment/Plan Assessment/Plan (Daily) IMPRESSION: 1. Severe sepsis. 2. Ascites. 3. Pneumonia. 4. Hepatocellular cancer with carcinomatosis. 5. Non-ST segment elevation myocardial infarction. 6. Diabetes mellitus. 7. Atrial fibrillation. 8. Congestive heart failure. 9. Dilated left-sided biliary system. 10. Anemia. Plan Patient seen 199 was 1000 and alpha-fetoprotein was within normal limit. This cancer cell marker are more in favor of cholangiocarcinoma rather than hepatocellular cancer. Patient definitely needs ERCP for tissue diagnosis and possible stenting. Patient bacteria might be related to biliary obstruction Consultation Date/Type/Reason Admit Date/Time Apr 01, 2019 at 17:43 Initial Consult Date 04/03/19 Requesting Provider: ADA RANGEL DO Date/Time of Note DATE: 04/07/19 TIME: 16:57 24 HR Interval Summary Constitutional: improved Exam/Review of Systems Exam Vitals Vital Signs Date Temp Pulse Resp B/P (MAP) Pulse Ox O2 O2 Flow FiO2 Time Delivery Rate 04/07/19 96 20 118/57 96 Room Air 15:00 (77) 04/07/19 97.8 12:00 Intake and Output 04/06/19 04/06/19 04/07/19 1414:59 22:59 06:59 IntakeIntake Total 148.375 ml 69.405 ml 138.76 ml OutputOutput Total 2400 ml BalanceBalance -2251.625 ml 69.405 ml 138.76 ml Constitutional: alert, oriented, well developed Psych: no complaints, nl mood/affect Head: normocephalic, atraumatic Eyes: nl conjunctiva, EOMI, nl lids, nl sclera, PERRL ENMT: nl external ears & nose, nl lips & teeth, nl nasal mucosa & septum Neck: supple, non-tender Respiratory: clear to auscultation, normal air movement Cardiovascular: regular rate and rhythm, nl pulses Gastrointestinal: soft, nl liver, spleen, non-tender Musculoskeletal: nl extremities to inspection, nl gait and stance Extremities: normal pulses Neurological: SILVER MINER II-XII intact, nl mental status, nl speech, nl strength Skin: nl turgor; No rash or lesions Lymph: nl lymph nodes Results Result Diagram: 04/07/19 0400 04/07/19 0400 Results 24hrs Laboratory Tests Test 04/06/19 17:48 04/06/19 20:03 04/07/19 01:57 04/07/19 04:00 Bedside Glucose 180 179 184 White Blood Count 18.6 #H Red Blood Count 3.02 L Hemoglobin 9.3 L Hematocrit 30.8 L Mean Corpuscular 102.0 H Volume Mean Corpuscular 30.8 Hemoglobin Mean Corpuscular 30.2 L Hemoglobin Concent Red Cell 16.5 H Distribution Width Platelet Count 235 # Mean Platelet Volume 10.9 H Immature 2.000 H Granulocytes % Neutrophils % 81.5 H Lymphocytes % 7.4 L Monocytes % 8.8 Eosinophils % 0.1 Basophils % 0.2 Nucleated Red Blood 0.2 H Cells % Immature 0.370 H Granulocytes # Neutrophils # 15.1 H Lymphocytes # 1.4 Monocytes # 1.6 H Eosinophils # 0.0 Basophils # 0.0 Nucleated Red Blood 0.0 Cells # Sodium Level 144 Potassium Level 4.1 Chloride Level 103 Carbon Dioxide Level 27 Anion Gap 14 H Blood Urea Nitrogen 38 #H Creatinine 3.62 #H Est Glomerular Filtrat Rate mL/min Glucose Level 170 Calcium Level 8.6 Phosphorus Level 4.2 Magnesium Level 2.3 Test 04/07/19 08:13 04/07/19 12:29 Bedside Glucose 156 167 Medications Medication Current Medications Amiodarone HCl (Cordarone) 200 mg DAILY PO Last administered on 04/07/19 08:21; Admin Dose 200 MG; Start 04/02/19 at 09:00 Aspirin (Halfprin) 81 mg DAILY PO Last administered on 04/07/19 08:21; Admin Dose 81 MG; Start 04/02/19 at 09:00 Atorvastatin Calcium (Lipitor) 20 mg QHS PO Last administered on 04/05/19 20:30; Admin Dose 20 MG; Start 04/01/19 at 21:00 Docusate Sodium (Colace) 100 mg BID PO Last administered on 04/07/19 08:20; Admin Dose 100 MG; Start 04/01/19 at 21:00 Midodrine (Proamatine) 5 mg DAILY PO Last administered on 04/07/19 08:20; Admin Dose 5 MG; Start 04/02/19 at 09:00 Montelukast Sodium (Singulair) 10 mg QHS PO Last administered on 04/05/19 20:30; Admin Dose 10 MG; Start 04/01/19 at 21:00 Sevelamer Carbonate (Renvela) 1.6 gm BID WITH MEALS PO Last administered on 04/07/19at 08:20; Admin Dose 1.6 GM; Start 04/01/19 at 21:00 Albuterol/ Ipratropium (Duoneb) 3 ml Q2H RESP THERAPY PRN NEB SHORTNESS OF BREATH; Start 04/01/19 at 21:00 Zolpidem Tartrate (Ambien) 5 mg QHS PRN PO INSOMNIA Last administered on 04/05/19at 22:19; Admin Dose 5 MG; Start 04/01/19 at 21:00 Norepinephrine 250 ml @ 1.875 mls/ hr TITRATE IV Last administered on 04/07/19at 06:41; Admin Dose 15 MLS/HR; Start 04/02/19 at 02:30 IV Flush (NS 10 ml) 10 ml PRN PRN IV IV PROTOCOL; Start 04/03/19 at 17:00 Epoetin Jatinder-epbx (Retacrit (Esrd)) 10,000 unit AFTER EACH DIALYSIS SC ; Start 04/04/19 at 16:00 Miscellaneous Information 1 ea NOTE XX ; Start 04/05/19 at 11:30 Glucose (Glutose) 15 gm Q15M PRN PO DECREASED GLUCOSE; Start 04/05/19 at 11:30 Glucose (Glutose) 22.5 gm Q15M PRN PO DECREASED GLUCOSE; Start 04/05/19 at 11:30 Dextrose (D50w Syringe) 25 ml Q15M PRN IV DECREASED GLUCOSE; Start 04/05/19 at 11:30 Dextrose (D50w Syringe) 50 ml Q15M PRN IV DECREASED GLUCOSE; Start 04/05/19 at 11:30 Glucagon (Glucagen) 1 mg Q15M PRN IM DECREASED GLUCOSE; Start 04/05/19 at 11:30 Glucose (Glutose) 15 gm Q15M PRN BUCCAL DECREASED GLUCOSE; Start 04/05/19 at 11:30 Diagnostic Test (Pha) (Accu-Chek) 1 ea 02 XX Last administered on 04/06/19at 01:17; Admin Dose 1 EA; Start 04/06/19 at 02:00 Insulin Aspart (Novolog Insulin Pen) NOVOLOG *MILD* ALGORITHM WITH MEALS BEDTIME SC Last administered on 04/07/19at 12:35; Admin Dose 1 UNIT; Start 04/05/19 at 17:35 Insulin Glargine (Lantus) 20 units DAILY@2000 SC Last administered on 04/06/19at 20:13; Admin Dose 20 UNITS; Start 04/06/19 at 20:00 Ertapenem 0.5 gm/ Sodium Chloride 100 ml @ 200 mls/hr Q24H IVPB Last administered on 04/07/19at 14:17; Admin Dose 200 MLS/HR; Start 04/06/19 at 12:00 Dextrose 1,000 ml @ 50 mls/hr Q20H IV ; Start 04/07/19 at 16:00 Ondansetron HCl (Zofran Inj) 4 mg Q6H PRN IV NAUSEA AND/OR VOMITING; Start 04/07/19 at 17:00; Status UNV OLIVIA CANTOR MD Apr 07, 2019 16:58
[2019-04-07] MEDS ORDERED: ONDANSETRON 4 MG INJ IV PRN (17:00)
[2019-04-07] MEDS: DEXTROSE 5% 1,000 ML IV SCH (17:01)
[2019-04-07] MEDS: ATORVASTATIN 20 MG TAB PO SCH (21:00)
[2019-04-07] MEDS: MONTELUKAST 10 MG TAB PO SCH (21:00)
[2019-04-07] MEDS: INSULIN GLARGINE [LANTus] (100 UNITS/ML) SYG SC SCH (21:49)
[2019-04-08] VITALS (101 sets, daily range): BP systolic 56–143; BP diastolic 14–82; PULSE 65–97; RESP 15–37
[2019-04-08] MEDS: ACCU-CHEK XX SCH (02:00)
[2019-04-08] MEDS: SEVELAMER CARBONATE 0.8 GM PKT PO SCH ×2 (07:35→18:23)
[2019-04-08] MEDS: INSULIN ASPART [NOVOLOG] 3 ML PEN SC SCH ×4 (08:10→21:32)
[2019-04-08] MEDS: DOCUSATE SODIUM 100 MG CAP PO SCH ×2 (08:13→21:26)
[2019-04-08] MEDS: ASPIRIN (EC) 81 MG TAB PO SCH ×2 (08:14→12:06)
[2019-04-08] MEDS: MIDODRINE 5 MG TAB PO SCH ×4 (08:14→18:23)
[2019-04-08] MEDS: AMIODARONE 200 MG TAB PO SCH ×2 (08:14→12:06)
--- NOTE | 2019-04-08 08:27 | CONS ---
Consult Date/Type/Reason Admit Date/Time Apr 01, 2019 at 17:43 Initial Consult Date Type of Consultation: neph Requesting Provider: ADA RANGEL DO Date/Time of Note DATE: 04/08/19 TIME: 08:20 Subjective Patient is a pleasant 83-year-old gentleman who was sent over from dialysis center because of hypotension. Patient been diagnosed with sepsis, has been adequately fluid resuscitated and started on Levophed drip. Patient remains completely awake and alert. Denies any shortness of breath, fever, chest pain, nausea vomiting. The patient weaned off pressor support. No other acute events noted. No hemoptysis, hematemesis or hematochezia. Off Levophed at 0500; NPO for ERCP today. scheduled for swallow eval and ercp noted stage 2 pressure ulcer. wound care is following. recs noted OBJECTIVE: HEENT: Head is normocephalic. NECK: Supple. HEART: Regular rate. LUNGS: Show diminished breath sounds at the base. ABDOMEN: Soft, nontender to palpation without rebound or guarding. EXTREMITIES: Negative for clubbing, cyanosis. Trace edema. DERMATOLOGIC: No rashes. MUSCULOSKELETAL: No joint effusion. NEUROLOGIC: No change in exam. Objective Vitals Vital Signs Date Temp Pulse Resp B/P (MAP) Pulse Ox O2 O2 Flow FiO2 Time Delivery Rate 04/08/19 94 26 101/27 96 06:15 (51) 04/08/19 Room Air 06:00 04/08/19 97.9 00:00 Intake and Output 04/07/19 04/07/19 04/08/19 1515:00 23:00 07:00 IntakeIntake Total 513.7 ml 342.1 ml 367.825 ml BalanceBalance 513.7 ml 342.1 ml 367.825 ml Results/Medications Result Diagram: 04/08/19 0436 04/08/19 0436 Results 24 hrs Laboratory Tests Test 04/07/19 12:29 04/07/19 17:57 04/07/19 21:35 04/08/19 01:31 Bedside Glucose 167 166 193 203 Test 04/08/19 04:36 04/08/19 08:04 White Blood Count 15.2 H Red Blood Count 2.82 L Hemoglobin 8.7 L Hematocrit 28.1 L Mean Corpuscular 99.6 Volume Mean Corpuscular 30.9 Hemoglobin Mean Corpuscular 31.0 L Hemoglobin Concent Red Cell 16.9 H Distribution Width Platelet Count 165 # Mean Platelet Volume 10.9 H Immature 1.700 H Granulocytes % Neutrophils % 82.7 H Lymphocytes % 7.5 L Monocytes % 7.8 Eosinophils % 0.1 Basophils % 0.2 Nucleated Red Blood 0.0 Cells % Immature 0.260 H Granulocytes # Neutrophils # 12.6 H Lymphocytes # 1.1 Monocytes # 1.2 H Eosinophils # 0.0 Basophils # 0.0 Nucleated Red Blood 0.0 Cells # Prothrombin Time 18.3 H Prothrombin Time 1.4 Ratio INR International 1.51 Normalized Ratio Activated 37.0 H Partial Thromboplast Time Sodium Level 142 Potassium Level 4.0 Chloride Level 101 Carbon Dioxide Level 27 Anion Gap 14 H Blood Urea Nitrogen 50 H Creatinine 4.42 H Est Glomerular Filtrat Rate mL/min Glucose Level 188 Calcium Level 8.2 L Phosphorus Level 4.4 Magnesium Level 2.3 Bedside Glucose 172 Home Meds Reported Medications Docusate Sodium* (Docusate Sodium*) 100 Mg Capsule, 100 MG PO BID, #60 CAP 04/01/19 Metoprolol Succinate* (Toprol XL*) 25 Mg Tab.sr.24h, 25 MG PO DAILY, #30 TAB 04/01/19 Aspirin* (Aspirin* EC) 81 Mg Tablet.dr, 81 MG PO DAILY, TAB 04/01/19 Fenofibrate, Micronized (Fenofibrate) 134 Mg Capsule, 134 MG PO DAILY, CAP 04/01/19 Sevelamer Carbonate* (Renvela*) 800 Mg Tablet, 1.6 GM PO BID, TAB 04/01/19 Amiodarone Hcl* (Amiodarone Hcl*) 200 Mg Tablet, 200 MG PO DAILY, #30 TAB TAKE Q ,,SAT WITH DIALYSIS 04/01/19 Montelukast Sodium* (Montelukast Sodium*) 10 Mg Tablet, 10 MG PO QHS, #30 TAB 04/01/19 [Nephro-Elieser] No Conflict Check, 1 TAB PO DAILY 04/01/19 Sacubitril/Valsartan (Entresto 24 mg-26 mg Tablet) 1 Each Tablet, 1 EACH PO BID, TAB 04/01/19 Midodrine* (Midodrine*) 5 Mg Tablet, 5 MG PO DAILY, TAB 04/01/19 Furosemide* (Furosemide*) 40 Mg Tablet, 40 MG PO DAILY, TAB 04/01/19 Atorvastatin Calcium* (Atorvastatin Calcium*) 20 Mg Tablet, 20 MG PO QHS, #30 TAB 04/01/19 Medications Current Medications Amiodarone HCl (Cordarone) 200 mg DAILY PO Last administered on 04/07/19 08:21; Admin Dose 200 MG; Start 04/02/19 at 09:00 Aspirin (Halfprin) 81 mg DAILY PO Last administered on 04/07/19 08:21; Admin Dose 81 MG; Start 04/02/19 at 09:00 Atorvastatin Calcium (Lipitor) 20 mg QHS PO Last administered on 04/05/19 20:30; Admin Dose 20 MG; Start 04/01/19 at 21:00 Docusate Sodium (Colace) 100 mg BID PO Last administered on 04/07/19 08:20; A dmin Dose 100 MG; Start 04/01/19 at 21:00 Midodrine (Proamatine) 5 mg DAILY PO Last administered on 04/07/19at 08:20; Admin Dose 5 MG; Start 04/02/19 at 09:00 Montelukast Sodium (Singulair) 10 mg QHS PO Last administered on 04/05/19 20:30; Admin Dose 10 MG; Start 04/01/19 at 21:00 Sevelamer Carbonate (Renvela) 1.6 gm BID WITH MEALS PO Last administered on 04/07/19 08:20; Admin Dose 1.6 GM; Start 04/01/19 at 21:00 Albuterol/ Ipratropium (Duoneb) 3 ml Q2H RESP THERAPY PRN NEB SHORTNESS OF BR EATH; Start 04/01/19 at 21:00 Zolpidem Tartrate (Ambien) 5 mg QHS PRN PO INSOMNIA Last administered on 04/05/19 22:19; Admin Dose 5 MG; Start 04/01/19 at 21:00 Norepinephrine 250 ml @ 1.875 mls/ hr TITRATE IV Last administered on 04/07/19at 06:41; Admin Dose 15 MLS/HR; Start 04/02/19 at 02:30 IV Flush (NS 10 ml) 10 ml PRN PRN IV IV PROTOCOL; Start 04/03/19 at 17:00 Epoetin Jatinder-epbx (Retacrit (Esrd)) 10,000 unit AFTER EACH DIALYSIS SC ; Start 04/04/19 at 16:00 Miscellaneous Information 1 ea NOTE XX ; Start 04/05/19 at 11:30 Glucose (Glutose) 15 gm Q15M PRN PO DECREASED GLUCOSE; Start 04/05/19 at 11:30 Glucose (Glutose) 22.5 gm Q15M PRN PO DECREASED GLUCOSE; Start 04/05/19 at 11:30 Dextrose (D50w Syringe) 25 ml Q15M PRN IV DECREASED GLUCOSE; Start 04/05/19 at 11:30 Dextrose (D50w Syringe) 50 ml Q15M PRN IV DECREASED GLUCOSE; Start 04/05/19 at 11:30 Glucagon (Glucagen) 1 mg Q15M PRN IM DECREASED GLUCOSE; Start 04/05/19 at 11:30 Glucose (Glutose) 15 gm Q15M PRN BUCCAL DECREASED GLUCOSE; Start 04/05/19 at 11:30 Diagnostic Test (Pha) (Accu-Chek) 1 ea 02 XX Last administered on 04/06/19at 01:17; Admin Dose 1 EA; Start 04/06/19 at 02:00 Insulin Aspart (Novolog Insulin Pen) NOVOLOG *MILD* ALGORITHM WITH MEALS BEDTIME SC Last administered on 04/08/19at 08:10; Admin Dose 1 UNIT; Start 04/05/19 at 17:35 Insulin Glargine (Lantus) 20 units DAILY@2000 SC Last administered on 04/07/19at 21:49; Admin Dose 20 UNITS; Start 04/06/19 at 20:00 Dextrose 1,000 ml @ 50 mls/hr Q20H IV Last administered on 04/07/19at 17:01; Admin Dose 50 MLS/HR; Start 04/07/19 at 16:00 Ondansetron HCl (Zofran Inj) 4 mg Q6H PRN IV NAUSEA AND/OR VOMITING; Start 04/07/19 at 17:00 Meropenem/Sodium Chloride 50 ml @ 100 mls/hr Q24H IVPB ; Start 04/08/19 at 14:00 Assessment/Plan Assessment/Plan (Daily) 1. Septic shock, etiology is secondary to bacteremia, gram-negative rods. Underlying source is unclear, possible intra-abdominal. The patient weaned off pressor support, continues on antibiotic therapy. Follow up with Infectious Disease. Repeat cultures have been negative. 2. 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 The patient's tumor markers CA 19-9 is markedly elevated. Plan is to place an oncology consult for evaluation. We will continue to follow up with GI for recommendations. Monitor closely. 3. Anemia. Continue to monitor hemoglobin and hematocrit levels. Continue Epogen as needed. 4. Hematochezia. Continue to monitor hemoglobin and hematocrit levels. 5. End-stage renal disease. on hd today. assess daily for hd need. all meds dosed ok. 6. Mineral bone disorder. Monitor calcium and phosphorus levels. 7. Elevated troponin likely non-ST elevation myocardial infarction type 2. Continue to monitor. 8. Diabetes. Continue current insulin regimen. 9. Arrhythmia with history of pacemaker. Continue to monitor. Follow up with Cardiology. 10. Volume overload. Continue ultrafiltration with dialysis. 11. Acute encephalopathy, etiology is toxic metabolic. Continue to monitor. 12. stage 2 decub- on low air loss. wound care. offload. DYLAN GREENE MD Apr 08, 2019 08:27
[2019-04-08] MEDS: BALSAM PERU/CASTOR OIL 60 GM TUBE TOP SCH ×2 (08:29→21:30)
--- NOTE | 2019-04-08 08:44 | CONS ---
Assessment/Plan Assessment/Plan Assessment/Plan (Daily) Patient is currently on Levophed at 2 mics per minute. Assessment and recommendations; 1. Patient admitted with sepsis with gram-positive bacteremia, currently on appropriate antimicrobial regimen. Most recent blood cultures are negative. 2. Chronic renal failure, dialysis dependent. 3. Hepatocellular carcinoma. 4. Persistent mild intermittent hypotension requiring intermittent pressor sup port. 5. Anemia and thrombocytopenia. Continue with supportive care. Increase midodrine to 5 mg 3 times daily from daily dosing. Wean off Levophed as tolerated. Hemodialysis per electronics commodity manager. Consultation Date/Type/Reason Admit Date/Time Apr 01, 2019 at 17:43 Initial Consult Date 04/03/19 Type of Consult Pulmonary/critical care Patient is a pleasant 83-year-old gentleman who was sent over from dialysis center because of hypotension. Patient been diagnosed with sepsis, has been adequately fluid resuscitated and currently on Levophed drip. Patient remains completely awake and alert. Denies any shortness of breath, fever, chest pain, nausea vomiting. Past medical history; 1. End-stage renal disease, on hemodialysis. 2. Liver cancer. 3. Anemia of chronic disease. 4. Chronic atrial fibrillation. History of pacemaker placement. 5. CHF. Medications; reviewed. Allergies; none. Family history; noncontributory. Occupational history; noncontributory. Review of systems; denies any headache, seizures. Shortness of breath has improved. Denies any abdominal pain, nausea vomiting. Denies any edema. Any fever or chills. Denies any seizures. General exam; elderly male, laying comfortably in bed on room air. Currently in no distress. Requesting Provider: ADA RANGEL DO Date/Time of Note DATE: 04/08/19 TIME: 08:42 24 HR Interval Summary Free Text/Dictation Patient's condition is tenuous. Still requiring intermittent pressor support. General exam; elderly male, currently no distress. Laying comfortably in bed. On room air. Exam/Review of Systems Exam Vitals Vital Signs Date Temp Pulse Resp B/P (MAP) Pulse Ox O2 O2 Flow FiO2 Time Delivery Rate 04/08/19 94 26 101/27 96 06:15 (51) 04/08/19 Room Air 06:00 04/08/19 97.9 00:00 Intake and Output 04/07/19 04/07/19 04/08/19 1515:00 23:00 07:00 IntakeIntake Total 513.7 ml 342.1 ml 367.825 ml BalanceBalance 513.7 ml 342.1 ml 367.825 ml Exam H EENT exam; supple neck,. No lymphadenopathy. Midline trachea. No thyromegaly. Patient is edentulous. No neck masses. Chest exam; diminished but clear breath sounds. S1-S2 audible, no murmurs. Regular rhythm. Abdomen exam; soft, nontender. No organomegaly. Bowel sounds audible. Extremity exam; no peripheral edema clubbing. RECORDS ANALYST exam; no focal motor deficit. Results Result Diagram: 04/08/19 0436 04/08/19 0436 Results 24hrs Laboratory Tests Test 04/07/19 12:29 04/07/19 17:57 04/07/19 21:35 04/08/19 01:31 Bedside Glucose 167 166 193 203 Test 04/08/19 04:36 04/08/19 08:04 White Blood Count 15.2 H Red Blood Count 2.82 L Hemoglobin 8.7 L Hematocrit 28.1 L Mean Corpuscular 99.6 Volume Mean Corpuscular 30.9 Hemoglobin Mean Corpuscular 31.0 L Hemoglobin Concent Red Cell 16.9 H Distribution Width Platelet Count 165 # Mean Platelet Volume 10.9 H Immature 1.700 H Granulocytes % Neutrophils % 82.7 H Lymphocytes % 7.5 L Monocytes % 7.8 Eosinophils % 0.1 Basophils % 0.2 Nucleated Red Blood 0.0 Cells % Immature 0.260 H Granulocytes # Neutrophils # 12.6 H Lymphocytes # 1.1 Monocytes # 1.2 H Eosinophils # 0.0 Basophils # 0.0 Nucleated Red Blood 0.0 Cells # Prothrombin Time 18.3 H Prothrombin Time 1.4 Ratio INR International 1.51 Normalized Ratio Activated 37.0 H Partial Thromboplast Time Sodium Level 142 Potassium Level 4.0 Chloride Level 101 Carbon Dioxide Level 27 Anion Gap 14 H Blood Urea Nitrogen 50 H Creatinine 4.42 H Est Glomerular Filtrat Rate mL/min Glucose Level 188 Calcium Level 8.2 L Phosphorus Level 4.4 Magnesium Level 2.3 Bedside Glucose 172 Medications Medication Current Medications Amiodarone HCl (Cordarone) 200 mg DAILY PO Last administered on 04/07/19at 08:21; Admin Dose 200 MG; Start 04/02/19 at 09:00 Aspirin (Halfprin) 81 mg DAILY PO Last administered on 04/07/19 08:21; Admin Dose 81 MG; Start 04/02/19 at 09:00 Atorvastatin Calcium (Lipitor) 20 mg QHS PO Last administered on 04/05/19 20:30; Admin Dose 20 MG; Start 04/01/19 at 21:00 Docusate Sodium (Colace) 100 mg BID PO Last administered on 04/07/19 08:20; Admin Dose 100 MG; Start 04/01/19 at 21:00 Midodrine (Proamatine) 5 mg DAILY PO Last administered on 04/07/19 08:20; Admin Dose 5 MG; Start 04/02/19 at 09:00 Montelukast Sodium (Singulair) 10 mg QHS PO Last administered on 04/05/19 20:30; Admin Dose 10 MG; Start 04/01/19 at 21:00 Sevelamer Carbonate (Renvela) 1.6 gm BID WITH MEALS PO Last administered on 04/07/19at 08:20; Admin Dose 1.6 GM; Start 04/01/19 at 21:00 Albuterol/ Ipratropium (Duoneb) 3 ml Q2H RESP THERAPY PRN NEB SHORTNESS OF BREATH; Start 04/01/19 at 21:00 Zolpidem Tartrate (Ambien) 5 mg QHS PRN PO INSOMNIA Last administered on 04/05/19at 22:19; Admin Dose 5 MG; Start 04/01/19 at 21:00 Norepinephrine 250 ml @ 1.875 mls/ hr TITRATE IV Last administered on 04/07/19at 06:41; Admin Dose 15 MLS/HR; Start 04/02/19 at 02:30 IV Flush (NS 10 ml) 10 ml PRN PRN IV IV PROTOCOL; Start 04/03/19 at 17:00 Epoetin Jatinder-epbx (Retacrit (Esrd)) 10,000 unit AFTER EACH DIALYSIS SC ; Start 04/04/19 at 16:00 Miscellaneous Information 1 ea NOTE XX ; Start 04/05/19 at 11:30 Glucose (Glutose) 15 gm Q15M PRN PO DECREASED GLUCOSE; Start 04/05/19 at 11:30 Glucose (Glutose) 22.5 gm Q15M PRN PO DECREASED GLUCOSE; Start 04/05/19 at 11:30 Dextrose (D50w Syringe) 25 ml Q15M PRN IV DECREASED GLUCOSE; Start 04/05/19 at 11:30 Dextrose (D50w Syringe) 50 ml Q15M PRN IV DECREASED GLUCOSE; Start 04/05/19 at 11:30 Glucagon (Glucagen) 1 mg Q15M PRN IM DECREASED GLUCOSE; Start 04/05/19 at 11:30 Glucose (Glutose) 15 gm Q15M PRN BUCCAL DECREASED GLUCOSE; Start 04/05/19 at 11:30 Diagnostic Test (Pha) (Accu-Chek) 1 ea 02 XX Last administered on 04/06/19at 01:17; Admin Dose 1 EA; Start 04/06/19 at 02:00 Insulin Aspart (Novolog Insulin Pen) NOVOLOG *MILD* ALGORITHM WITH MEALS BEDTIME SC Last administered on 04/08/19at 08:10; Admin Dose 1 UNIT; Start 04/05/19 at 17:35 Insulin Glargine (Lantus) 20 units DAILY@2000 SC Last administered on 04/07/19at 21:49; Admin Dose 20 UNITS; Start 04/06/19 at 20:00 Dextrose 1,000 ml @ 50 mls/hr Q20H IV Last administered on 04/07/19at 17:01; Admin Dose 50 MLS/HR; Start 04/07/19 at 16:00 Ondansetron HCl (Zofran Inj) 4 mg Q6H PRN IV NAUSEA AND/OR VOMITING; Start 04/07/19 at 17:00 Meropenem/Sodium Chloride 50 ml @ 100 mls/hr Q24H IVPB ; Start 04/08/19 at 14:00 NANCY LIRA Apr 08, 2019 08:44
[2019-04-08] MEDS ORDERED: IOHEXOL 300MG/ML 30 ML BTL ONE (09:11)
[2019-04-08] MEDS: NORepinephrine 8MG/250 ML (PMX 250 ML IV SCH ×2 (09:14→19:38)
--- NOTE | 2019-04-08 11:00 | CONS ---
Assessment/Plan Assessment/Plan Hospital Course (Demo Recall) ID PROGRESS NOTE CURRENT ABX: DAY # =>MERREM 04/08/19 0436 04/08/19 0436 24H INTERVAL SUMMARY * ERCP deferred 2/2 hypotension, back on pressors, no fevers -- elderly male, lethargic DIAGNOSTIC IMAGING * 04/04/19 CT ABD-PEL: * 1. Again noted is severe dilatation of left intrahepatic biliary ducts. No gross evidence of hepatic mass is seen, though sensitivity is markedly limited without IV contrast. Findings remain concerning for obstructive mass in the central left hepatic lobe, as described in the prior CT report. * 2. Findings compatible with peritoneal carcinomatosis. Moderate ascites, grossly stable. * 3. Stable mild cardiomegaly. Coronary arterial and aortoiliac atherosclerotic calcifications. * 4. Mild to moderate bilateral pleural effusions, grossly stable. Bibasilar atelectasis. * 5. Cholelithiasis, without evidence for cholecystitis. * 6. Chronic bilateral renal cortical thinning and atrophy, unchanged. MICRO: * 04/02/19 BCX (-) * 04/01/19 BCX (+) 2/2 BACTEROIDES FRAGILIS PHYSICAL EXAMINATION: GENERAL: VSS, NAD HEENT: AT, NC, NECK: Supple, CHEST: Rise symmetrical without dyspnea on observation HEART: Pulse RRR ABDOMEN: Benign EXTREMITIES: Warm, dry SKIN: No rash, no diaphoresis ID ASSESSMENT 83 yo M admit with: 1. Sepsis with shock 2. Bacteremia ?source 3. End-stage renal disease, hemodialysis dependent * RUEXT AVF 4. Recently diagnosed hepatocellular carcinoma, poss obstructing mass and peritoneal carcinomatosis 5. Coronary artery disease status post permanent pacemaker 6. Diabetes 7. Atrial fibrillation (-)MRSA Nares ABX ALLERGIES: KNDA INVASIVES: PIV CURRENT ABX: DAY # MERREM ID RECOMMENDATIONS/PLAN: 1. Continue CURRENT ABX over the weekend . Consultation Date/Type/Reason Admit Date/Time Apr 01, 2019 at 17:43 Initial Consult Date 04/03/19 Requesting Provider: ADA RANGEL DO Date/Time of Note DATE: 04/08/19 TIME: 11:00 Exam/Review of Systems Exam Vitals Vital Signs Date Temp Pulse Resp B/P (MAP) Pulse Ox O2 O2 Flow FiO2 Time Delivery Rate 04/08/19 94 26 101/27 96 06:15 (51) 04/08/19 Room Air 06:00 04/08/19 97.9 00:00 Intake and Output 04/07/19 04/07/19 04/08/19 1515:00 23:00 07:00 IntakeIntake Total 513.7 ml 342.1 ml 417.825 ml BalanceBalance 513.7 ml 342.1 ml 417.825 ml Results Result Diagram: 04/08/19 0436 04/08/19 0436 Results 24hrs Laboratory Tests Test 04/07/19 12:29 04/07/19 17:57 04/07/19 21:35 04/08/19 01:31 Bedside Glucose 167 166 193 203 Test 04/08/19 04:36 04/08/19 08:04 White Blood Count 15.2 H Red Blood Count 2.82 L Hemoglobin 8.7 L Hematocrit 28.1 L Mean Corpuscular 99.6 Volume Mean Corpuscular 30.9 Hemoglobin Mean Corpuscular 31.0 L Hemoglobin Concent Red Cell 16.9 H Distribution Width Platelet Count 165 # Mean Platelet Volume 10.9 H Immature 1.700 H Granulocytes % Neutrophils % 82.7 H Lymphocytes % 7.5 L Monocytes % 7.8 Eosinophils % 0.1 Basophils % 0.2 Nucleated Red Blood 0.0 Cells % Immature 0.260 H Granulocytes # Neutrophils # 12.6 H Lymphocytes # 1.1 Monocytes # 1.2 H Eosinophils # 0.0 Basophils # 0.0 Nucleated Red Blood 0.0 Cells # Prothrombin Time 18.3 H Prothrombin Time 1.4 Ratio INR International 1.51 Normalized Ratio Activated 37.0 H Partial Thromboplast Time Sodium Level 142 Potassium Level 4.0 Chloride Level 101 Carbon Dioxide Level 27 Anion Gap 14 H Blood Urea Nitrogen 50 H Creatinine 4.42 H Est Glomerular Filtrat Rate mL/min Glucose Level 188 Calcium Level 8.2 L Phosphorus Level 4.4 Magnesium Level 2.3 Bedside Glucose 172 Medications Medication Current Medications Amiodarone HCl (Cordarone) 200 mg DAILY PO Last administered on 04/07/19at 08:21; Admin Dose 200 MG; Start 04/02/19 at 09:00 Aspirin (Halfprin) 81 mg DAILY PO Last administered on 04/07/19at 08:21; Admin Dose 81 MG; Start 04/02/19 at 09:00 Atorvastatin Calcium (Lipitor) 20 mg QHS PO Last administered on 04/05/19at 20:30; Admin Dose 20 MG; Start 04/01/19 at 21:00 Docusate Sodium (Colace) 100 mg BID PO Last administered on 04/07/19at 08:20; Admin Dose 100 MG; Start 04/01/19 at 21:00 Montelukast Sodium (Singulair) 10 mg QHS PO Last administered on 04/05/19at 20:30; Admin Dose 10 MG; Start 04/01/19 at 21:00 Sevelamer Carbonate (Renvela) 1.6 gm BID WITH MEALS PO Last administered on 04/07/19at 08:20; Admin Dose 1.6 GM; Start 04/01/19 at 21:00 Albuterol/ Ipratropium (Duoneb) 3 ml Q2H RESP THERAPY PRN NEB SHORTNESS OF BREATH; Start 04/01/19 at 21:00 Zolpidem Tartrate (Ambien) 5 mg QHS PRN PO INSOMNIA Last administered on 03/18 22:19; Admin Dose 5 MG; Start 04/01/19 at 21:00 Norepinephrine 250 ml @ 1.875 mls/ hr TITRATE IV Last administered on 04/08/19at 09:14; Admin Dose 11.25 MLS/HR; Start 04/02/19 at 02:30 IV Flush (NS 10 ml) 10 ml PRN PRN IV IV PROTOCOL; Start 04/03/19 at 17:00 Epoetin Jatinder-epbx (Retacrit (Esrd)) 10,000 unit AFTER EACH DIALYSIS SC ; Start 04/04/19 at 16:00 Miscellaneous Information 1 ea NOTE XX ; Start 04/05/19 at 11:30 Glucose (Glutose) 15 gm Q15M PRN PO DECREASED GLUCOSE; Start 04/05/19 at 11:30 Glucose (Glutose) 22.5 gm Q15M PRN PO DECREASED GLUCOSE; Start 04/05/19 at 11:30 Dextrose (D50w Syringe) 25 ml Q15M PRN IV DECREASED GLUCOSE; Start 04/05/19 at 11:30 Dextrose (D50w Syringe) 50 ml Q15M PRN IV DECREASED GLUCOSE; Start 04/05/19 at 11:30 Glucagon (Glucagen) 1 mg Q15M PRN IM DECREASED GLUCOSE; Start 04/05/19 at 11:30 Glucose (Glutose) 15 gm Q15M PRN BUCCAL DECREASED GLUCOSE; Start 04/05/19 at 11:30 Diagnostic Test (Pha) (Accu-Chek) 1 ea 02 XX Last administered on 04/06/19at 01:17; Admin Dose 1 EA; Start 04/06/19 at 02:00 Insulin Aspart (Novolog Insulin Pen) NOVOLOG *MILD* ALGORITHM WITH MEALS BEDTIME SC Last administered on 04/08/19at 08:10; Admin Dose 1 UNIT; Start 04/05/19 at 17:35 Insulin Glargine (Lantus) 20 units DAILY@2000 SC Last administered on 04/07/19at 21:49; Admin Dose 20 UNITS; Start 04/06/19 at 20:00 Dextrose 1,000 ml @ 50 mls/hr Q20H IV Last administered on 04/07/19at 17:01; Admin Dose 50 MLS/HR; Start 04/07/19 at 16:00 Ondansetron HCl (Zofran Inj) 4 mg Q6H PRN IV NAUSEA AND/OR VOMITING; Start 04/07/19 at 17:00 Meropenem/Sodium Chloride 50 ml @ 100 mls/hr Q24H IVPB ; Start 04/08/19 at 14:00 Midodrine (Proamatine) 5 mg TID@09,13,17 PO ; Start 04/08/19 at 09:00 MARCIA ROBERTSON NP Apr 08, 2019 11:00
--- NOTE | 2019-04-08 11:14 | OPPN ---
Date/Time of Note Date/Time of Note DATE: 04/08/19 TIME: 11:09 Event Note Pt is scheduled for ERCP. I saw the patient at bedside for preop, Apparently pt was off pressors this morning and has since become hypotensive with BP's in the 70's/30's requiring to be put back onto Norepi first at 6mcg an hour ago and then up to 12mcg now with current BP's 80's/30's. Pt very unstable to undergo ercp procedure under GETA at this time. I spoke with the family who is concerned about giving anesthesia with his present condition as well. Spoke with Dr. Schuster as well. Will schedule fro ERCP when pt is more stable. ANTONIO EDOUARD Apr 08, 2019 11:14
--- NOTE | 2019-04-08 12:24 | CONS ---
Assessment/Plan Assessment/Plan Assessment/Plan (Daily) IMPRESSION: 1. Severe sepsis. 2. Ascites. 3. Pneumonia. 4. Hepatocellular cancer with carcinomatosis. 5. Non-ST segment elevation myocardial infarction. 6. Diabetes mellitus. 7. Atrial fibrillation. 8. Congestive heart failure. 9. Dilated left-sided biliary system. 10. Anemia. Plan Patient seen 199 was 1000 and alpha-fetoprotein was within normal limit. This cancer cell marker are more in favor of cholangiocarcinoma rather than hepatocellular cancer. Patient definitely needs ERCP for tissue diagnosis and possible stenting. Patient bacteria might be related to biliary obstruction Patient on low-dose of pressor support medication. Anesthesiologist Dr. Murphy felt patient was a high risk for intubation and ERCP so he declined to do the procedure. We last for a cardiology clearance. Consultation Date/Type/Reason Admit Date/Time Apr 01, 2019 at 17:43 Initial Consult Date 04/03/19 Requesting Provider: ADA RANGEL DO Date/Time of Note DATE: 04/08/19 TIME: 12:23 24 HR Interval Summary Constitutional: no complaints, improved Exam/Review of Systems Exam Vitals Vital Signs Date Temp Pulse Resp B/P (MAP) Pulse Ox O2 O2 Flow FiO2 Time Delivery Rate 04/08/19 81 21 77/35 (49) 93 10:45 04/08/19 97.6 08:00 04/08/19 Room Air 06:00 Intake and Output 04/07/19 04/07/19 04/08/19 1515:00 23:00 07:00 IntakeIntake Total 513.7 ml 342.1 ml 417.825 ml BalanceBalance 513.7 ml 342.1 ml 417.825 ml Constitutional: alert, oriented, well developed Psych: no complaints, nl mood/affect Head: normocephalic, atraumatic Eyes: nl conjunctiva, EOMI, nl lids, nl sclera, PERRL ENMT: nl external ears & nose, nl lips & teeth, nl nasal mucosa & septum Neck: supple, non-tender Respiratory: clear to auscultation, normal air movement Cardiovascular: regular rate and rhythm, nl pulses Gastrointestinal: soft, nl liver, spleen, non-tender Musculoskeletal: nl extremities to inspection, nl gait and stance Extremities: normal pulses Neurological: PRODUCT COORDINATOR II-XII intact, nl mental status, nl speech, nl strength Skin: nl turgor; No rash or lesions Lymph: nl lymph nodes Results Result Diagram: 04/08/19 0436 04/08/19 0436 Results 24hrs Laboratory Tests Test 04/07/19 12:29 04/07/19 17:57 04/07/19 21:35 04/08/19 01:31 Bedside Glucose 167 166 193 203 Test 04/08/19 04:36 04/08/19 08:04 White Blood Count 15.2 H Red Blood Count 2.82 L Hemoglobin 8.7 L Hematocrit 28.1 L Mean Corpuscular 99.6 Volume Mean Corpuscular 30.9 Hemoglobin Mean Corpuscular 31.0 L Hemoglobin Concent Red Cell 16.9 H Distribution Width Platelet Count 165 # Mean Platelet Volume 10.9 H Immature 1.700 H Granulocytes % Neutrophils % 82.7 H Lymphocytes % 7.5 L Monocytes % 7.8 Eosinophils % 0.1 Basophils % 0.2 Nucleated Red Blood 0.0 Cells % Immature 0.260 H Granulocytes # Neutrophils # 12.6 H Lymphocytes # 1.1 Monocytes # 1.2 H Eosinophils # 0.0 Basophils # 0.0 Nucleated Red Blood 0.0 Cells # Prothrombin Time 18.3 H Prothrombin Time 1.4 Ratio INR International 1.51 Normalized Ratio Activated 37.0 H Partial Thromboplast Time Sodium Level 142 Potassium Level 4.0 Chloride Level 101 Carbon Dioxide Level 27 Anion Gap 14 H Blood Urea Nitrogen 50 H Creatinine 4.42 H Est Glomerular Filtrat Rate mL/min Glucose Level 188 Calcium Level 8.2 L Phosphorus Level 4.4 Magnesium Level 2.3 Bedside Glucose 172 Medications Medication Current Medications Amiodarone HCl (Cordarone) 200 mg DAILY PO Last administered on 04/08/19at 12:06; Admin Dose 200 MG; Start 04/02/19 at 09:00 Aspirin (Halfprin) 81 mg DAILY PO Last administered on 04/08/19at 12:06; Admin Dose 81 MG; Start 04/02/19 at 09:00 Atorvastatin Calcium (Lipitor) 20 mg QHS PO Last administered on 04/05/19at 20:30; Admin Dose 20 MG; Start 04/01/19 at 21:00 Docusate Sodium (Colace) 100 mg BID PO Last administered on 04/07/19at 08:20; Admin Dose 100 MG; Start 04/01/19 at 21:00 Montelukast Sodium (Singulair) 10 mg QHS PO Last administered on 04/05/19at 20:30; Admin Dose 10 MG; Start 04/01/19 at 21:00 Sevelamer Carbonate (Renvela) 1.6 gm BID WITH MEALS PO Last administered on 04/07/19at 08:20; Admin Dose 1.6 GM; Start 04/01/19 at 21:00 Albuterol/ Ipratropium (Duoneb) 3 ml Q2H RESP THERAPY PRN NEB SHORTNESS OF BREATH; Start 04/01/19 at 21:00 Zolpidem Tartrate (Ambien) 5 mg QHS PRN PO INSOMNIA Last administered on 04/05/19at 22:19; Admin Dose 5 MG; Start 04/01/19 at 21:00 Norepinephrine 250 ml @ 1.875 mls/ hr TITRATE IV Last administered on 04/08/19at 09:14; Admin Dose 11.25 MLS/HR; Start 04/02/19 at 02:30 IV Flush (NS 10 ml) 10 ml PRN PRN IV IV PROTOCOL; Start 04/03/19 at 17:00 Epoetin Jatinder-epbx (Retacrit (Esrd)) 10,000 unit AFTER EACH DIALYSIS SC ; Start 04/04/19 at 16:00 Miscellaneous Information 1 ea NOTE XX ; Start 04/05/19 at 11:30 Glucose (Glutose) 15 gm Q15M PRN PO DECREASED GLUCOSE; Start 04/05/19 at 11:30 Glucose (Glutose) 22.5 gm Q15M PRN PO DECREASED GLUCOSE; Start 04/05/19 at 11:30 Dextrose (D50w Syringe) 25 ml Q15M PRN IV DECREASED GLUCOSE; Start 04/05/19 at 11:30 Dextrose (D50w Syringe) 50 ml Q15M PRN IV DECREASED GLUCOSE; Start 04/05/19 at 11:30 Glucagon (Glucagen) 1 mg Q15M PRN IM DECREASED GLUCOSE; Start 04/05/19 at 11:30 Glucose (Glutose) 15 gm Q15M PRN BUCCAL DECREASED GLUCOSE; Start 04/05/19 at 11:30 Diagnostic Test (Pha) (Accu-Chek) 1 ea 02 XX Last administered on 04/06/19at 01:17; Admin Dose 1 EA; Start 04/06/19 at 02:00 Insulin Aspart (Novolog Insulin Pen) NOVOLOG *MILD* ALGORITHM WITH MEALS BEDTIME SC Last administered on 04/08/19at 12:21; Admin Dose 2 UNIT; Start 04/05/19 at 17:35 Insulin Glargine (Lantus) 20 units DAILY@2000 SC Last administered on 04/07/19at 21:49; Admin Dose 20 UNITS; Start 04/06/19 at 20:00 Dextrose 1,000 ml @ 50 mls/hr Q20H IV Last administered on 04/07/19at 17:01; Admin Dose 50 MLS/HR; Start 04/07/19 at 16:00 Ondansetron HCl (Zofran Inj) 4 mg Q6H PRN IV NAUSEA AND/OR VOMITING; Start 04/07/19 at 17:00 Meropenem/Sodium Chloride 50 ml @ 100 mls/hr Q24H IVPB ; Start 04/08/19 at 14:00 Midodrine (Proamatine) 5 mg TID@09,13,17 PO Last administered on 04/08/19at 12:04; Admin Dose 5 MG; Start 04/08/19 at 09:00 OLIVIA CANTOR MD Apr 08, 2019 12:24
[2019-04-08] MEDS: DEXTROSE 5% 1,000 ML IV SCH (12:55)
[2019-04-08] MEDS: MEROPENEM 500MG/50 ML (PMX) 50 ML IVPB SCH (17:25)
[2019-04-08] MEDS: ATORVASTATIN 20 MG TAB PO SCH (21:26)
[2019-04-08] MEDS: MONTELUKAST 10 MG TAB PO SCH (21:26)
[2019-04-08] MEDS: INSULIN GLARGINE [LANTus] (100 UNITS/ML) SYG SC SCH (21:42)
[2019-04-09] VITALS (76 sets, daily range): BP systolic 76–132; BP diastolic 26–69; PULSE 69–93; RESP 16–46
[2019-04-09] MEDS: ACCU-CHEK XX SCH (02:00)
[2019-04-09] MEDS: NORepinephrine 8MG/250 ML (PMX 250 ML IV SCH ×2 (05:48→17:35)
[2019-04-09] MEDS: DEXTROSE 5% 1,000 ML IV SCH (06:34)
--- NOTE | 2019-04-09 07:20 | CONS ---
Consult Date/Type/Reason Admit Date/Time Apr 01, 2019 at 17:43 Initial Consult Date Type of Consultation: neph Requesting Provider: ADA RANGEL DO Date/Time of Note DATE: 04/09/19 TIME: 07:18 Subjective Patient is a pleasant 83-year-old gentleman who was sent over from dialysis center because of hypotension. Patient been diagnosed with sepsis, has been adequately fluid resuscitated and started on Levophed drip. Patient remains completely awake and alert. Denies any shortness of breath, fever, chest pain, nausea vomiting. No other acute events noted. No hemoptysis, hematemesis or hematochezia. Off Levophed yesterday in am but had to be restarted. ERCP cancelled yesterday. DW gi. NPO for ERCP today. scheduled for swallow eval tomorrow. tolerating pills, noted stage 2 pressure ulcer. wound care is following. recs noted OBJECTIVE: HEENT: Head is normocephalic. NECK: Supple. HEART: Regular rate. LUNGS: Show diminished breath sounds at the base. ABDOMEN: Soft, nontender to palpation without rebound or guarding. EXTREMITIES: Negative for clubbing, cyanosis. Trace edema. DERMATOLOGIC: No rashes. MUSCULOSKELETAL: No joint effusion. NEUROLOGIC: No change in exam. Objective Vitals Vital Signs Date Temp Pulse Resp B/P (MAP) Pulse Ox O2 O2 Flow FiO2 Time Delivery Rate 04/09/19 82 23 89/40 (56) 98 06:15 04/09/19 Room Air 06:00 04/09/19 98.0 04:00 Intake and Output 04/08/19 04/08/19 04/09/19 1515:00 23:00 07:00 IntakeIntake Total 557.50 ml 625.25 ml 528.5 ml OutputOutput Total 300 ml 1800 ml BalanceBalance 257.50 ml -1174.75 ml 528.5 ml Results/Medications Result Diagram: 04/08/19 0436 04/08/19 0436 Results 24 hrs Laboratory Tests Test 04/08/19 08:04 04/08/19 12:18 04/08/19 18:14 04/08/19 21:30 Bedside Glucose 172 188 164 196 Test 04/09/19 05:29 Bedside Glucose 176 Home Meds Reported Medications Docusate Sodium* (Docusate Sodium*) 100 Mg Capsule, 100 MG PO BID, #60 CAP 04/01/19 Metoprolol Succinate* (Toprol XL*) 25 Mg Tab.sr.24h, 25 MG PO DAILY, #30 TAB 04/01/19 Aspirin* (Aspirin* EC) 81 Mg Tablet.dr, 81 MG PO DAILY, TAB 04/01/19 Fenofibrate, Micronized (Fenofibrate) 134 Mg Capsule, 134 MG PO DAILY, CAP 04/01/19 Sevelamer Carbonate* (Renvela*) 800 Mg Tablet, 1.6 GM PO BID, TAB 04/01/19 Amiodarone Hcl* (Amiodarone Hcl*) 200 Mg Tablet, 200 MG PO DAILY, #30 TAB TAKE Q TU,,SAT WITH DIALYSIS 04/01/19 Montelukast Sodium* (Montelukast Sodium*) 10 Mg Tablet, 10 MG PO QHS, #30 TAB 04/01/19 [Nephro-Elieser] No Conflict Check, 1 TAB PO DAILY 04/01/19 Sacubitril/Valsartan (Entresto 24 mg-26 mg Tablet) 1 Each Tablet, 1 EACH PO BID, TAB 04/01/19 Midodrine* (Midodrine*) 5 Mg Tablet, 5 MG PO DAILY, TAB 04/01/19 Furosemide* (Furosemide*) 40 Mg Tablet, 40 MG PO DAILY, TAB 04/01/19 Atorvastatin Calcium* (Atorvastatin Calcium*) 20 Mg Tablet, 20 MG PO QHS, #30 TAB 04/01/19 Medications Current Medications Amiodarone HCl (Cordarone) 200 mg DAILY PO Last administered on 04/08/19at 12:06; Admin Dose 200 MG; Start 04/02/19 at 09:00 Aspirin (Halfprin) 81 mg DAILY PO Last administered on 04/08/19at 12:06; Admin Dose 81 MG; Start 04/02/19 at 09:00 Atorvastatin Calcium (Lipitor) 20 mg QHS PO Last administered on 04/08/19at 21: 26; Admin Dose 20 MG; Start 04/01/19 at 21:00 Docusate Sodium (Colace) 100 mg BID PO Last administered on 04/08/19at 21:26; Admin Dose 100 MG; Start 04/01/19 at 21:00 Montelukast Sodium (Singulair) 10 mg QHS PO Last administered on 04/08/19at 21:26; Admin Dose 10 MG; Start 04/01/19 at 21:00 Sevelamer Carbonate (Renvela) 1.6 gm BID WITH MEALS PO Last administered on 04/08/19at 18:23; Admin Dose 1.6 GM; Start 04/01/19 at 21:00 Albuterol/ Ipratropium (Duoneb) 3 ml Q2H RESP THERAPY PRN NEB SHORTNESS OF BREATH; Start 04/01/19 at 21:00 Zolpidem Tartrate (Ambien) 5 mg QHS PRN PO INSOMNIA Last administered on 04/05/19at 22:19; Admin Dose 5 MG; Start 04/01/19 at 21:00 Norepinephrine 250 ml @ 1.875 mls/ hr TITRATE IV Last administered on 04/09/19at 05:48; Admin Dose 22.5 MLS/HR; Start 04/02/19 at 02:30 IV Flush (NS 10 ml) 10 ml PRN PRN IV IV PROTOCOL; Start 04/03/19 at 17:00 Epoetin Jatinder-epbx (Retacrit (Esrd)) 10,000 unit AFTER EACH DIALYSIS SC ; Start 04/04/19 at 16:00 Miscellaneous Information 1 ea NOTE XX ; Start 04/05/19 at 11:30 Glucose (Glutose) 15 gm Q15M PRN PO DECREASED GLUCOSE; Start 04/05/19 at 11:30 Glucose (Glutose) 22.5 gm Q15M PRN PO DECREASED GLUCOSE; Start 04/05/19 at 11:30 Dextrose (D50w Syringe) 25 ml Q15M PRN IV DECREASED GLUCOSE; Start 04/05/19 at 11:30 Dextrose (D50w Syringe) 50 ml Q15M PRN IV DECREASED GLUCOSE; Start 04/05/19 at 11:30 Glucagon (Glucagen) 1 mg Q15M PRN IM DECREASED GLUCOSE; Start 04/05/19 at 11:30 Glucose (Glutose) 15 gm Q15M PRN BUCCAL DECREASED GLUCOSE; Start 04/05/19 at 11:30 Diagnostic Test (Pha) (Accu-Chek) 1 ea 02 XX Last administered on 04/06/19at 01:17; Admin Dose 1 EA; Start 04/06/19 at 02:00 Insulin Aspart (Novolog Insulin Pen) NOVOLOG *MILD* ALGORITHM WITH MEALS BEDTIME SC Last administered on 04/08/19at 21:32; Admin Dose 2 UNIT; Start 04/05/19 at 17:35 Insulin Glargine (Lantus) 20 units DAILY@2000 SC Last administered on 04/08/19 21:42; Admin Dose 20 UNITS; Start 04/06/19 at 20:00 Dextrose 1,000 ml @ 50 mls/hr Q20H IV Last administered on 04/09/19at 06:34; Admin Dose 50 MLS/HR; Start 04/07/19 at 16:00 Ondansetron HCl (Zofran Inj) 4 mg Q6H PRN IV NAUSEA AND/OR VOMITING; Start 04/07/19 at 17:00 Meropenem/Sodium Chloride 50 ml @ 100 mls/hr Q24H IVPB Last administered on 04/08/19 17:25; Admin Dose 100 MLS/HR; Start 04/08/19 at 14:00 Midodrine (Proamatine) 5 mg TID@09,13,17 PO Last administered on 04/08/19 18:23; Admin Dose 5 MG; Start 04/08/19 at 09:00 Assessment/Plan Hospital Course (Demo Recall) 1. Septic shock, etiology is secondary to bacteremia, gram-negative rods. Underlying source is unclear, possible intra-abdominal. The patient weaned off pressor support, continues on antibiotic therapy. Follow up with Infectious Disease. Repeat cultures have been negative. 2. 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 The patient's tumor markers CA 19-9 is markedly elevated. oncology consult for evaluation. We will continue to follow up with GI for recommendations. Monitor closely. 3. Anemia. Continue to monitor hemoglobin and hematocrit levels. Continue Epogen as needed. 4. Hematochezia. Continue to monitor hemoglobin and hematocrit levels. 5. End-stage renal disease. on hd yesterday. assess daily for hd need. all meds dosed ok. hd tomorrow. 6. Mineral bone disorder. Monitor calcium and phosphorus levels. 7. Elevated troponin likely non-ST elevation myocardial infarction type 2. Continue to monitor. 8. Diabetes. Continue current insulin regimen. 9. Arrhythmia with history of pacemaker. Continue to monitor. Follow up with Cardiology. 10. Volume overload. Continue ultrafiltration with dialysis. 11. Acute encephalopathy, etiology is toxic metabolic. Continue to monitor. 12. stage 2 decub- on low air loss. wound care. offload. DYLAN GREENE MD Apr 09, 2019 07:20
[2019-04-09] MEDS: SEVELAMER CARBONATE 0.8 GM PKT PO SCH ×2 (07:35→17:24)
[2019-04-09] MEDS: INSULIN ASPART [NOVOLOG] 3 ML PEN SC SCH ×4 (08:16→20:52)
[2019-04-09] MEDS: ASPIRIN (EC) 81 MG TAB PO SCH ×2 (09:00→15:21)
[2019-04-09] MEDS: DOCUSATE SODIUM 100 MG CAP PO SCH ×3 (09:00→20:30)
[2019-04-09] MEDS: MIDODRINE 5 MG TAB PO SCH ×3 (09:00→17:24)
[2019-04-09] MEDS: AMIODARONE 200 MG TAB PO SCH ×2 (09:00→15:21)
--- NOTE | 2019-04-09 09:28 | CONS ---
Assessment/Plan Assessment/Plan Assessment/Plan (Daily) Patient is currently on Levophed 12 mics per minute. Assessment and recommendations; 1. Patient admitted with hypotension due to sepsis. Bacteroides culture from blood, however the most recent cultures are negative. 2. Chronic renal failure, dialysis dependent. 3. Persistent hypotension, requiring Levophed. 4. Liver cancer. 5. History of cardiac arrhythmia, status post pacemaker placement. 6. Anemia. 7. Diabetes. 8. Encephalopathy, likely metabolic in etiology. Continue current supportive care. ERCP could not be performed yesterday due to hemodynamic instability. Prognosis is guarded. Further recommendations per intern and cable dispatcher. Consultation Date/Type/Reason Admit Date/Time Apr 01, 2019 at 17:43 Initial Consult Date 04/03/19 Type of Consult Pulmonary/critical care Patient is a pleasant 83-year-old gentleman who was sent over from dialysis center because of hypotension. Patient been diagnosed with sepsis, has been adequately fluid resuscitated and currently on Levophed drip. Patient remains completely awake and alert. Denies any shortness of breath, fever, chest pain, nausea vomiting. Past medical history; 1. End-stage renal disease, on hemodialysis. 2. Liver cancer. 3. Anemia of chronic disease. 4. Chronic atrial fibrillation. History of pacemaker placement. 5. CHF. Medications; reviewed. Allergies; none. Family history; noncontributory. Occupational history; noncontributory. Review of systems; denies any headache, seizures. Shortness of breath has impr shira. Denies any abdominal pain, nausea vomiting. Denies any edema. Any fever or chills. Denies any seizures. General exam; elderly male, laying comfortably in bed on room air. Currently in no distress. Requesting Provider: ADA RANGEL DO Date/Time of Note DATE: 04/09/19 TIME: 09:25 24 HR Interval Summary Free Text/Dictation Patient's condition is tenuous at best. Back on Levophed at 12 mics per minute. General exam; elderly male, awake, currently in no distress. Exam/Review of Systems Exam Vitals Vital Signs Date Temp Pulse Resp B/P (MAP) Pulse Ox O2 O2 Flow FiO2 Time Delivery Rate 04/09/19 88 24 83/43 (56) 96 Room Air 08:15 04/09/19 97.9 08:00 Intake and Output 04/08/19 04/08/19 04/09/19 1515:00 23:00 07:00 IntakeIntake Total 557.50 ml 625.25 ml 528.5 ml OutputOutput Total 300 ml 1800 ml BalanceBalance 257.50 ml -1174.75 ml 528.5 ml Exam HEENT exam; supple neck, no JVD. No lymphadenopathy. Midline trachea. No thyromegaly. Patient is is edentulous. On room air. Chest exam; diminished but clear breath sounds. S1-S2 audible, no murmurs. Regular rhythm. Abdomen exam; soft, no organomegaly. Bowel sounds are audible. Extremity exam; no peripheral edema clubbing. INVESTIGATIVE RESEARCH SPECIALIST exam; patient awake and appropriately responsive. Exhibiting generalized weakness. Results Result Diagram: 04/09/19 0743 04/09/19 0743 Results 24hrs Laboratory Tests Test 04/08/19 12:18 04/08/19 18:14 04/08/19 21:30 04/09/19 05:29 Bedside Glucose 188 164 196 176 Test 04/09/19 07:43 04/09/19 08:11 White Blood Count 16.6 H Red Blood Count 3.21 L Hemoglobin 9.8 L Hematocrit 32.7 L Mean Corpuscular 101.9 H Volume Mean Corpuscular 30.5 Hemoglobin Mean Corpuscular 30.0 L Hemoglobin Concent Red Cell 17.3 H Distribution Width Platelet Count 228 # Mean Platelet Volume 10.5 H Immature 1.900 H Granulocytes % Neutrophils % 78.8 H Lymphocytes % 8.5 L Monocytes % 10.4 Eosinophils % 0.2 Basophils % 0.2 Nucleated Red Blood 0.0 Cells % Immature 0.320 H Granulocytes # Neutrophils # 13.1 H Lymphocytes # 1.4 Monocytes # 1.7 H Eosinophils # 0.0 Basophils # 0.0 Nucleated Red Blood 0.0 Cells # Sodium Level 142 Potassium Level 4.1 Chloride Level 105 Carbon Dioxide Level 26 Anion Gap 11 Blood Urea Nitrogen 33 #H Creatinine 3.76 H Est Glomerular Filtrat Rate mL/min Glucose Level 171 Calcium Level 8.5 Total Bilirubin 0.5 Direct Bilirubin 0.00 Indirect Bilirubin 0.5 Aspartate Amino 34 Transf (AST/SGOT) Alanine 35 Aminotransferase (AL T/SGPT) Alkaline Phosphatase 70 Total Protein 5.4 L Albumin 2.5 L Globulin 2.90 Albumin/Globulin 0.86 Ratio Bedside Glucose 158 Medications Medication Current Medications Amiodarone HCl (Cordarone) 200 mg DAILY PO Last administered on 04/08/19 12:06; Admin Dose 200 MG; Start 04/02/19 at 09:00 Aspirin (Halfprin) 81 mg DAILY PO Last administered on 04/08/19 12:06; Admin Dose 81 MG; Start 04/02/19 at 09:00 Atorvastatin Calcium (Lipitor) 20 mg QHS PO Last administered on 04/08/19 21:26; Admin Dose 20 MG; Start 04/01/19 at 21:00 Docusate Sodium (Colace) 100 mg BID PO Last administered on 04/08/19 21:26; Admin Dose 100 MG; Start 04/01/19 at 21:00 Montelukast Sodium (Singulair) 10 mg QHS PO Last administered on 04/08/19 21:26; Admin Dose 10 MG; Start 04/01/19 at 21:00 Sevelamer Carbonate (Renvela) 1.6 gm BID WITH MEALS PO Last administered on 04/08/19 18:23; Admin Dose 1.6 GM; Start 04/01/19 at 21:00 Albuterol/ Ipratropium (Duoneb) 3 ml Q2H RESP THERAPY PRN NEB SHORTNESS OF BREATH; Start 04/01/19 at 21:00 Zolpidem Tartrate (Ambien) 5 mg QHS PRN PO INSOMNIA Last administered on 04/05/19 22:19; Admin Dose 5 MG; Start 04/01/19 at 21:00 Norepinephrine 250 ml @ 1.875 mls/ hr TITRATE IV Last administered on 04/09/19at 05:48; Admin Dose 22.5 MLS/HR; Start 04/02/19 at 02:30 IV Flush (NS 10 ml) 10 ml PRN PRN IV IV PROTOCOL; Start 04/03/19 at 17:00 Epoetin Jatinder-epbx (Retacrit (Esrd)) 10,000 unit AFTER EACH DIALYSIS SC ; Start 04/04/19 at 16:00 Miscellaneous Information 1 ea NOTE XX ; Start 04/05/19 at 11:30 Glucose (Glutose) 15 gm Q15M PRN PO DECREASED GLUCOSE; Start 04/05/19 at 11:30 Glucose (Glutose) 22.5 gm Q15M PRN PO DECREASED GLUCOSE; Start 04/05/19 at 11:30 Dextrose (D50w Syringe) 25 ml Q15M PRN IV DECREASED GLUCOSE; Start 04/05/19 at 11:30 Dextrose (D50w Syringe) 50 ml Q15M PRN IV DECREASED GLUCOSE; Start 04/05/19 at 11:30 Glucagon (Glucagen) 1 mg Q15M PRN IM DECREASED GLUCOSE; Start 04/05/19 at 11:30 Glucose (Glutose) 15 gm Q15M PRN BUCCAL DECREASED GLUCOSE; Start 04/05/19 at 11 :30 Diagnostic Test (Pha) (Accu-Chek) 1 ea 02 XX Last administered on 04/06/19at 01:17; Admin Dose 1 EA; Start 04/06/19 at 02:00 Insulin Aspart (Novolog Insulin Pen) NOVOLOG *MILD* ALGORITHM WITH MEALS BEDTIME SC Last administered on 04/09/19 08:16; Admin Dose 1 UNIT; Start 04/05/19 at 17:35 Insulin Glargine (Lantus) 20 units DAILY@2000 SC Last administered on 04/08/19at 21:42; Admin Dose 20 UNITS; Start 04/06/19 at 20:00 Dextrose 1,000 ml @ 50 mls/hr Q20H IV Last administered on 04/09/19at 06:34; Admin Dose 50 MLS/HR; Start 04/07/19 at 16:00 Ondansetron HCl (Zofran Inj) 4 mg Q6H PRN IV NAUSEA AND/OR VOMITING; Start 04/07/19 at 17:00 Meropenem/Sodium Chloride 50 ml @ 100 mls/hr Q24H IVPB Last administered on 04/08/19at 17:25; Admin Dose 100 MLS/HR; Start 04/08/19 at 14:00 Midodrine (Proamatine) 5 mg TID@,13,17 PO Last administered on 04/08/19at 18:23; Admin Dose 5 MG; Start 04/08/19 at 09:00 NANCY LIRA Apr 09, 2019 09:28
[2019-04-09] MEDS: BALSAM PERU/CASTOR OIL 60 GM TUBE TOP SCH ×2 (09:54→20:53)
--- NOTE | 2019-04-09 11:23 | CONS ---
Assessment/Plan Assessment/Plan Hospital Course (Demo Recall) ID PROGRESS NOTE CURRENT ABX: DAY # =>MERREM 04/09/19 0743 04/09/19 0743 24H INTERVAL SUMMARY * Back on pressors -- yesterday ERCP deferred 2/2 hypotension, no fevers -- elderly male, lethargic, non-communicative * Patient w/(+) evidence on CXR -- let's broaden ABX coverage for HCAP DIAGNOSTIC IMAGING * 04/04/19 CXR: (+)PNA Stable left lower lung infiltrates with small to moderate left pleural effusion.Stable perihilar right lower lung infiltrates and small right pleural effusion. * 04/04/19 CT ABD-PEL: * 1. Again noted is severe dilatation of left intrahepatic biliary ducts. No gross evidence of hepatic mass is seen, though sensitivity is markedly limited without IV contrast. Findings remain concerning for obstructive mass in the central left hepatic lobe, as described in the prior CT report. * 2. Findings compatible with peritoneal carcinomatosis. Moderate ascites, grossly stable. * 3. Stable mild cardiomegaly. Coronary arterial and aortoiliac atherosclerotic calcifications. * 4. Mild to moderate bilateral pleural effusions, grossly stable. Bibasilar atelectasis. * 5. Cholelithiasis, without evidence for cholecystitis. * 6. Chronic bilateral renal cortical thinning and atrophy, unchanged. MICRO: * 04/02/19 BCX (-) * 04/01/19 BCX (+) 2/2 BACTEROIDES FRAGILIS PHYSICAL EXAMINATION: GENERAL: VSS, NAD HEENT: AT, NC, NECK: Supple, CHEST: Rise symmetrical without dyspnea on observation HEART: Pulse RRR ABDOMEN: Benign EXTREMITIES: Warm, dry SKIN: No rash, no diaphoresis ID ASSESSMENT 83 yo M admit with: 1. Sepsis with shock 2. Bacteremia ?source 3. End-stage renal disease, hemodialysis dependent * RUEXT AVF 4. Recently diagnosed hepatocellular carcinoma, poss obstructing mass and peritoneal carcinomatosis 5. Coronary artery disease status post permanent pacemaker 6. Diabetes 7. Atrial fibrillation 8. Pulmonary edema 9. Patient w/(+) evidence on CXR -- let's broaden ABX coverage for HCAP (-)MRSA Nares ABX ALLERGIES: KNDA INVASIVES: PIV CURRENT ABX: DAY # MERREM + Start Vanco IV #1 + Start Flagyl IV #1 ID RECOMMENDATIONS/PLAN: 1. Patient w/(+) evidence on CXR -- let's broaden ABX coverage for HCAP w/Vanco IV post HD 2. Add Flagyl IV as Flagyl has excellent penetration into liver -- ERCP on hold for septic shock . Consultation Date/Type/Reason Admit Date/Time Apr 01, 2019 at 17:43 Initial Consult Date 04/03/19 Requesting Provider: ADA RANGEL DO Date/Time of Note DATE: 04/09/19 TIME: 11:15 Exam/Review of Systems Exam Vitals Vital Signs Date Temp Pulse Resp B/P (MAP) Pulse Ox O2 O2 Flow FiO2 Time Delivery Rate 04/09/19 88 24 83/43 (56) 96 Room Air 08:15 04/09/19 97.9 08:00 Intake and Output 04/08/19 04/08/19 04/09/19 1515:00 23:00 07:00 IntakeIntake Total 557.50 ml 625.25 ml 528.5 ml OutputOutput Total 300 ml 1800 ml BalanceBalance 257.50 ml -1174.75 ml 528.5 ml Results Result Diagram: 04/09/19 0743 04/09/19 0743 Results 24hrs Laboratory Tests Test 04/08/19 12:18 04/08/19 18:14 04/08/19 21:30 04/09/19 05:29 Bedside Glucose 188 164 196 176 Test 04/09/19 07:43 04/09/19 08:11 White Blood Count 16.6 H Red Blood Count 3.21 L Hemoglobin 9.8 L Hematocrit 32.7 L Mean Corpuscular 101.9 H Volume Mean Corpuscular 30.5 Hemoglobin Mean Corpuscular 30.0 L Hemoglobin Concent Red Cell 17.3 H Distribution Width Platelet Count 228 # Mean Platelet Volume 10.5 H Immature 1.900 H Granulocytes % Neutrophils % 78.8 H Lymphocytes % 8.5 L Monocytes % 10.4 Eosinophils % 0.2 Basophils % 0.2 Nucleated Red Blood 0.0 Cells % Immature 0.320 H Granulocytes # Neutrophils # 13.1 H Lymphocytes # 1.4 Monocytes # 1.7 H Eosinophils # 0.0 Basophils # 0.0 Nucleated Red Blood 0.0 Cells # Sodium Level 142 Potassium Level 4.1 Chloride Level 105 Carbon Dioxide Level 26 Anion Gap 11 Blood Urea Nitrogen 33 #H Creatinine 3.76 H Est Glomerular Filtrat Rate mL/min Glucose Level 171 Calcium Level 8.5 Total Bilirubin 0.5 Direct Bilirubin 0.00 Indirect Bilirubin 0.5 Aspartate Amino 34 Transf (AST/SGOT) Alanine 35 Aminotransferase (AL T/SGPT) Alkaline Phosphatase 70 Total Protein 5.4 L Albumin 2.5 L Globulin 2.90 Albumin/Globulin 0.86 Ratio Bedside Glucose 158 Medications Medication Current Medications Amiodarone HCl (Cordarone) 200 mg DAILY PO Last administered on 04/08/19 12:06; Admin Dose 200 MG; Start 04/02/19 at 09:00 Aspirin (Halfprin) 81 mg DAILY PO Last administered on 04/08/19 12:06; Admin Dose 81 MG; Start 04/02/19 at 09:00 Atorvastatin Calcium (Lipitor) 20 mg QHS PO Last administered on 04/08/19 21:26; Admin Dose 20 MG; Start 04/01/19 at 21:00 Docusate Sodium (Colace) 100 mg BID PO Last administered on 04/08/19 21:26; Admin Dose 100 MG; Start 04/01/19 at 21:00 Montelukast Sodium (Singulair) 10 mg QHS PO Last administered on 04/08/19 21:26; Admin Dose 10 MG; Start 04/01/19 at 21:00 Sevelamer Carbonate (Renvela) 1.6 gm BID WITH MEALS PO Last administered on 04/08/19 18:23; Admin Dose 1.6 GM; Start 04/01/19 at 21:00 Albuterol/ Ipratropium (Duoneb) 3 ml Q2H RESP THERAPY PRN NEB SHORTNESS OF BREATH; Start 04/01/19 at 21:00 Zolpidem Tartrate (Ambien) 5 mg QHS PRN PO INSOMNIA Last administered on 04/05/19 22:19; Admin Dose 5 MG; Start 04/01/19 at 21:00 Norepinephrine 250 ml @ 1.875 mls/ hr TITRATE IV Last administered on 04/09/19 05:48; Admin Dose 22.5 MLS/HR; Start 04/02/19 at 02:30 IV Flush (NS 10 ml) 10 ml PRN PRN IV IV PROTOCOL; Start 04/03/19 at 17:00 Epoetin Jatinder-epbx (Retacrit (Esrd)) 10,000 unit AFTER EACH DIALYSIS SC ; Start 04/04/19 at 16:00 Miscellaneous Information 1 ea NOTE XX ; Start 04/05/19 at 11:30 Glucose (Glutose) 15 gm Q15M PRN PO DECREASED GLUCOSE; Start 04/05/19 at 11:30 Glucose (Glutose) 22.5 gm Q15M PRN PO DECREASED GLUCOSE; Start 04/05/19 at 11:30 Dextrose (D50w Syringe) 25 ml Q15M PRN IV DECREASED GLUCOSE; Start 04/05/19 at 11:30 Dextrose (D50w Syringe) 50 ml Q15M PRN IV DECREASED GLUCOSE; Start 04/05/19 at 11:30 Glucagon (Glucagen) 1 mg Q15M PRN IM DECREASED GLUCOSE; Start 04/05/19 at 11:30 Glucose (Glutose) 15 gm Q15M PRN BUCCAL DECREASED GLUCOSE; Start 04/05/19 at 11:30 Diagnostic Test (Pha) (Accu-Chek) 1 ea 02 XX Last administered on 04/06/19at 01:17; Admin Dose 1 EA; Start 04/06/19 at 02:00 Insulin Aspart (Novolog Insulin Pen) NOVOLOG *MILD* ALGORITHM WITH MEALS BEDTIME SC Last administered on 04/09/19at 08:16; Admin Dose 1 UNIT; Start at 17:35 Insulin Glargine (Lantus) 20 units DAILY@2000 SC Last administered on 04/08/19at 21:42; Admin Dose 20 UNITS; Start 04/06/19 at 20:00 Dextrose 1,000 ml @ 50 mls/hr Q20H IV Last administered on 04/09/19at 06:34; Admin Dose 50 MLS/HR; Start 04/07/19 at 16:00 Ondansetron HCl (Zofran Inj) 4 mg Q6H PRN IV NAUSEA AND/OR VOMITING; Start 04/07/19 at 17:00 Meropenem/Sodium Chloride 50 ml @ 100 mls/hr Q24H IVPB Last administered on 04/08/19at 17:25; Admin Dose 100 MLS/HR; Start 04/08/19 at 14:00 Midodrine (Proamatine) 5 mg TID@09,13,17 PO Last administered on 04/08/19at 18:23; Admin Dose 5 MG; Start 04/08/19 at 09:00 MARCIA ROBERTSON NP Apr 09, 2019 11:23
[2019-04-09] MEDS ORDERED: VANCOMYCIN IV PER PHARMACY XX SCH (11:30)
[2019-04-09] MEDS: EPOETIN ALFA-EPBX (ESRD) 10,000 UNIT/ML VIAL SC SCH (11:54)
[2019-04-09] MEDS: metroNIDAZOLE 500 MG/NS (PMX) 100 ML IVPB SCH ×2 (12:26→21:21)
[2019-04-09] MEDS ORDERED: VANCOMYCIN HCL 1.75 GM in SOD CHLORIDE 0.9% 500 ML IVPB SCH (14:00)
[2019-04-09] MEDS: MEROPENEM 500MG/50 ML (PMX) 50 ML IVPB SCH (14:27)
--- NOTE | 2019-04-09 15:04 | CONS ---
Assessment/Plan Assessment/Plan Assessment/Plan (Daily) IMPRESSION: 1. Severe sepsis. 2. Ascites. 3. Pneumonia. 4. Hepatocellular cancer with carcinomatosis. 5. Non-ST segment elevation myocardial infarction. 6. Diabetes mellitus. 7. Atrial fibrillation. 8. Congestive heart failure. 9. Dilated left-sided biliary system. 10. Anemia. Plan Patient seen 199 was 1000 and alpha-fetoprotein was within normal limit. This cancer cell marker are more in favor of cholangiocarcinoma rather than hepatocellular cancer. Patient definitely needs ERCP for tissue diagnosis and possible stenting. Patient bacteria might be related to biliary obstruction Patient on low-dose of pressor support medication. Anesthesiologist Dr. Murphy felt patient was a high risk for intubation and ERCP so he declined to do the procedure. We will ask for a cardiology clearance. Patient is still on pressor support Consultation Date/Type/Reason Admit Date/Time Apr 01, 2019 at 17:43 Initial Consult Date 04/03/19 Requesting Provider: ADA RANGEL DO Date/Time of Note DATE: 04/09/19 TIME: 15:04 24 HR Interval Summary Constitutional: improved Exam/Review of Systems Exam Vitals Vital Signs Date Temp Pulse Resp B/P (MAP) Pulse Ox O2 O2 Flow FiO2 Time Delivery Rate 04/09/19 81 12:01 04/09/19 97.4 30 124/57 95 12:00 (79) 04/09/19 Room Air 08:15 Intake and Output 04/08/19 04/08/19 04/09/19 1515:00 23:00 07:00 IntakeIntake Total 557.50 ml 625.25 ml 528.5 ml OutputOutput Total 300 ml 1800 ml BalanceBalance 257.50 ml -1174.75 ml 528.5 ml Constitutional: alert, oriented, well developed Psych: no complaints, nl mood/affect Head: normocephalic, atraumatic Eyes: nl conjunctiva, EOMI, nl lids, nl sclera, PERRL ENMT: nl external ears & nose, nl lips & teeth, nl nasal mucosa & septum Neck: supple, non-tender Respiratory: clear to auscultation, normal air movement Cardiovascular: regular rate and rhythm, nl pulses Gastrointestinal: soft, nl liver, spleen, non-tender Musculoskeletal: nl extremities to inspection, nl gait and stance Extremities: normal pulses Neurological: [employer] II-XII intact, nl mental status, nl speech, nl strength Skin: nl turgor; No rash or lesions Lymph: nl lymph nodes Results Result Diagram: 04/09/19 0743 04/09/19 0743 Results 24hrs Laboratory Tests Test 04/08/19 18:14 04/08/19 21:30 04/09/19 05:29 04/09/19 07:43 Bedside Glucose 164 196 176 White Blood Count 16.6 H Red Blood Count 3.21 L Hemoglobin 9.8 L Hematocrit 32.7 L Mean Corpuscular 101.9 H Volume Mean Corpuscular 30.5 Hemoglobin Mean Corpuscular 30.0 L Hemoglobin Concent Red Cell 17.3 H Distribution Width Platelet Count 228 # Mean Platelet Volume 10.5 H Immature 1.900 H Granulocytes % Neutrophils % 78.8 H Lymphocytes % 8.5 L Monocytes % 10.4 Eosinophils % 0.2 Basophils % 0.2 Nucleated Red Blood 0.0 Cells % Immature 0.320 H Granulocytes # Neutrophils # 13.1 H Lymphocytes # 1.4 Monocytes # 1.7 H Eosinophils # 0.0 Basophils # 0.0 Nucleated Red Blood 0.0 Cells # Sodium Level 142 Potassium Level 4.1 Chloride Level 105 Carbon Dioxide Level 26 Anion Gap 11 Blood Urea Nitrogen 33 #H Creatinine 3.76 H Est Glomerular Filtrat Rate mL/min Glucose Level 171 Calcium Level 8.5 Total Bilirubin 0.5 Direct Bilirubin 0.00 Indirect Bilirubin 0.5 Aspartate Amino 34 Transf (AST/SGOT) Alanine 35 Aminotransferase (AL T/SGPT) Alkaline Phosphatase 70 Total Protein 5.4 L Albumin 2.5 L Globulin 2.90 Albumin/Globulin 0.86 Ratio Test 04/09/19 08:11 Bedside Glucose 158 Medications Medication Current Medications Amiodarone HCl (Cordarone) 200 mg DAILY PO Last administered on 04/08/19at 12 :06; Admin Dose 200 MG; Start 04/02/19 at 09:00 Aspirin (Halfprin) 81 mg DAILY PO Last administered on 04/08/19at 12:06; Admin Dose 81 MG; Start 04/02/19 at 09:00 Atorvastatin Calcium (Lipitor) 20 mg QHS PO Last administered on 04/08/19at 21:26; Admin Dose 20 MG; Start 04/01/19 at 21:00 Docusate Sodium (Colace) 100 mg BID PO Last administered on 04/08/19 21:26; Admin Dose 100 MG; Start 04/01/19 at 21:00 Montelukast Sodium (Singulair) 10 mg QHS PO Last administered on 04/08/19 21:26; Admin Dose 10 MG; Start 04/01/19 at 21:00 Sevelamer Carbonate (Renvela) 1.6 gm BID WITH MEALS PO Last administered on 04/08/19 18:23; Admin Dose 1.6 GM; Start 04/01/19 at 21:00 Albuterol/ Ipratropium (Duoneb) 3 ml Q2H RESP THERAPY PRN NEB SHORTNESS OF BREATH; Start 04/01/19 at 21:00 Zolpidem Tartrate (Ambien) 5 mg QHS PRN PO INSOMNIA Last administered on 04/05/19 22:19; Admin Dose 5 MG; Start 04/01/19 at 21:00 Norepinephrine 250 ml @ 1.875 mls/ hr TITRATE IV Last administered on 04/09/19at 05:48; Admin Dose 22.5 MLS/HR; Start 04/02/19 at 02:30 IV Flush (NS 10 ml) 10 ml PRN PRN IV IV PROTOCOL; Start 04/03/19 at 17:00 Epoetin Jatinder-epbx (Retacrit (Esrd)) 10,000 unit AFTER EACH DIALYSIS SC Last administered on 04/09/19 11:54; Admin Dose 10,000 UNIT; Start 04/04/19 at 16:00 Miscellaneous Information 1 ea NOTE XX ; Start 04/05/19 at 11:30 Glucose (Glutose) 15 gm Q15M PRN PO DECREASED GLUCOSE; Start 04/05/19 at 11:30 Glucose (Glutose) 22.5 gm Q15M PRN PO DECREASED GLUCOSE; Start 04/05/19 at 11:30 Dextrose (D50w Syringe) 25 ml Q15M PRN IV DECREASED GLUCOSE; Start 04/05/19 at 11:30 Dextrose (D50w Syringe) 50 ml Q15M PRN IV DECREASED GLUCOSE; Start 04/05/19 at 11:30 Glucagon (Glucagen) 1 mg Q15M PRN IM DECREASED GLUCOSE; Start 04/05/19 at 11:30 Glucose (Glutose) 15 gm Q15M PRN BUCCAL DECREASED GLUCOSE; Start 04/05/19 at 11:30 Diagnostic Test (Pha) (Accu-Chek) 1 ea 02 XX Last administered on 04/06/19at 01:17; Admin Dose 1 EA; Start 04/06/19 at 02:00 Insulin Aspart (Novolog Insulin Pen) NOVOLOG *MILD* ALGORITHM WITH MEALS BEDTIME SC Last administered on 04/09/19 08:16; Admin Dose 1 UNIT; Start 04/05/19 at 17:35 Insulin Glargine (Lantus) 20 units DAILY@2000 SC Last administered on 04/08/19 21:42; Admin Dose 20 UNITS; Start 04/06/19 at 20:00 Dextrose 1,000 ml @ 50 mls/hr Q20H IV Last administered on 04/09/19 06:34; Admin Dose 50 MLS/HR; Start 04/07/19 at 16:00 Ondansetron HCl (Zofran Inj) 4 mg Q6H PRN IV NAUSEA AND/OR VOMITING; Start 04/07/19 at 17:00 Meropenem/Sodium Chloride 50 ml @ 100 mls/hr Q24H IVPB Last administered on 04/09/19 14:27; Admin Dose 100 MLS/HR; Start 04/08/19 at 14:00 Midodrine (Proamatine) 5 mg TID@09,13,17 PO Last administered on 04/09/19 12:26; Admin Dose 5 MG; Start 04/08/19 at 09:00 Vancomycin HCl (Vanco Iv Per Pharmacy) VANCOMYCIN PER PHARMACY PER PROTOCOL XX ; Start 04/09/19 at 11:30 Metronidazole 100 ml @ 100 mls/hr Q8 IVPB Last administered on 04/09/19 12:26; Admin Dose 100 MLS/HR; Start 04/09/19 at 12:30 Vancomycin HCl 1.75 gm/Sodium Chloride 500 ml @ 125 mls/hr ONCE IVPB Last administered on 04/09/19 14:27; Admin Dose 125 MLS/HR; Start 04/09/19 at 14:00; Stop 04/09/19 at 17:59 OLIVIA CANTOR MD Apr 09, 2019 15:04
--- NOTE | 2019-04-09 16:12 | CONS ---
Consultation Date/Type/Reason Admit Date/Time Apr 01, 2019 at 17:43 Initial Consult Date 04/03/19 Type of Consult Cardiology Requesting Provider: ADA RANGEL DO Date/Time of Note DATE: 04/09/19 TIME: 16:06 24 HR Interval Summary Free Text/Dictation telemetry appears consistent with afib will check EKG in AM Patient remains in ICU and back on levophed drip due to recurrent hypotension No report of any chest pain or pressure Exam/Review of Systems Vital Signs Vitals Vital Signs Date Temp Pulse Resp B/P (MAP) Pulse Ox O2 O2 Flow FiO2 Time Delivery Rate 04/09/19 81 12:01 04/09/19 97.4 30 124/57 95 12:00 (79) 04/09/19 Room Air 08:15 Intake and Output 04/08/19 04/08/19 04/09/19 1515:00 23:00 07:00 IntakeIntake Total 557.50 ml 625.25 ml 528.5 ml OutputOutput Total 300 ml 1800 ml BalanceBalance 257.50 ml -1174.75 ml 528.5 ml Exam Exam General: no acute distress HEENT: NC/AT. pupils are equal. round. NECK: no stridor. CV: RRR. systolic murmur; no gallop or rubs. PULM: no wheezing or rhonchi. GI: SOFT, NT, ND, no rebound or guarding Extremity: trace B/L LE edema. no clubbing. neuro: awake Labs Result Diagram: 04/09/19 0743 04/09/19 0743 Results 24hrs Laboratory Tests Test 04/08/19 18:14 04/08/19 21:30 04/09/19 05:29 04/09/19 07:43 Bedside Glucose 164 196 176 White Blood Count 16.6 H Red Blood Count 3.21 L Hemoglobin 9.8 L Hematocrit 32.7 L Mean Corpuscular 101.9 H Volume Mean Corpuscular 30.5 Hemoglobin Mean Corpuscular 30.0 L Hemoglobin Concent Red Cell 17.3 H Distribution Width Platelet Count 228 # Mean Platelet Volume 10.5 H Immature 1.900 H Granulocytes % Neutrophils % 78.8 H Lymphocytes % 8.5 L Monocytes % 10.4 Eosinophils % 0.2 Basophils % 0.2 Nucleated Red Blood 0.0 Cells % Immature 0.320 H Granulocytes # Neutrophils # 13.1 H Lymphocytes # 1.4 Monocytes # 1.7 H Eosinophils # 0.0 Basophils # 0.0 Nucleated Red Blood 0.0 Cells # Sodium Level 142 Potassium Level 4.1 Chloride Level 105 Carbon Dioxide Level 26 Anion Gap 11 Blood Urea Nitrogen 33 #H Creatinine 3.76 H Est Glomerular Filtrat Rate mL/min Glucose Level 171 Calcium Level 8.5 Total Bilirubin 0.5 Direct Bilirubin 0.00 Indirect Bilirubin 0.5 Aspartate Amino 34 Transf (AST/SGOT) Alanine 35 Aminotransferase (AL T/SGPT) Alkaline Phosphatase 70 Total Protein 5.4 L Albumin 2.5 L Globulin 2.90 Albumin/Globulin 0.86 Ratio Test 04/09/19 08:11 Bedside Glucose 158 Medications Medications Current Medications Amiodarone HCl (Cordarone) 200 mg DAILY PO Last administered on 04/09/19 15:21; Admin Dose 200 MG; Start 04/02/19 at 09:00 Aspirin (Halfprin) 81 mg DAILY PO Last administered on 04/09/19 15:21; Admin Dose 81 MG; Start 04/02/19 at 09:00 Atorvastatin Calcium (Lipitor) 20 mg QHS PO Last administered on 04/08/19 21:26; Admin Dose 20 MG; Start 04/01/19 at 21:00 Docusate Sodium (Colace) 100 mg BID PO Last administered on 04/09/19 15:21; Admin Dose 100 MG; Start 04/01/19 at 21:00 Montelukast Sodium (Singulair) 10 mg QHS PO Last administered on 04/08/19 21:26; Admin Dose 10 MG; Start 04/01/19 at 21:00 Sevelamer Carbonate (Renvela) 1.6 gm BID WITH MEALS PO Last administered on 04/08/19 18:23; Admin Dose 1.6 GM; Start 04/01/19 at 21:00 Albuterol/ Ipratropium (Duoneb) 3 ml Q2H RESP THERAPY PRN NEB SHORTNESS OF BREATH; Start 04/01/19 at 21:00 Zolpidem Tartrate (Ambien) 5 mg QHS PRN PO INSOMNIA Last administered on 04/05/19 22:19; Admin Dose 5 MG; Start 04/01/19 at 21:00 Norepinephrine 250 ml @ 1.875 mls/ hr TITRATE IV Last administered on 04/09/19 05:48; Admin Dose 22.5 MLS/HR; Start 04/02/19 at 02:30 IV Flush (NS 10 ml) 10 ml PRN PRN IV IV PROTOCOL; Start 04/03/19 at 17:00 Epoetin Jatinder-epbx (Retacrit (Esrd)) 10,000 unit AFTER EACH DIALYSIS SC Last administered on 04/09/19 11:54; Admin Dose 10,000 UNIT; Start 04/04/19 at 16:00 Miscellaneous Information 1 ea NOTE XX ; Start 04/05/19 at 11:30 Glucose (Glutose) 15 gm Q15M PRN PO DECREASED GLUCOSE; Start 04/05/19 at 11:30 Glucose (Glutose) 22.5 gm Q15M PRN PO DECREASED GLUCOSE; Start 04/05/19 at 11:30 Dextrose (D50w Syringe) 25 ml Q15M PRN IV DECREASED GLUCOSE; Start 04/05/19 at 11:30 Dextrose (D50w Syringe) 50 ml Q15M PRN IV DECREASED GLUCOSE; Start 04/05/19 at 11:30 Glucagon (Glucagen) 1 mg Q15M PRN IM DECREASED GLUCOSE; Start 04/05/19 at 11:30 Glucose (Glutose) 15 gm Q15M PRN BUCCAL DECREASED GLUCOSE; Start 04/05/19 at 11:30 Diagnostic Test (Pha) (Accu-Chek) 1 ea 02 XX Last administered on 04/06/19at 01:17; Admin Dose 1 EA; Start 04/06/19 at 02:00 Insulin Aspart (Novolog Insulin Pen) NOVOLOG *MILD* ALGORITHM WITH MEALS BEDTIME SC Last administered on 04/09/19at 08:16; Admin Dose 1 UNIT; Start 04/05/19 at 17:35 Insulin Glargine (Lantus) 20 units DAILY@2000 SC Last administered on 04/08/19 21:42; Admin Dose 20 UNITS; Start 04/06/19 at 20:00 Dextrose 1,000 ml @ 50 mls/hr Q20H IV Last administered on 04/09/19 06:34; Admin Dose 50 MLS/HR; Start 04/07/19 at 16:00 Ondansetron HCl (Zofran Inj) 4 mg Q6H PRN IV NAUSEA AND/OR VOMITING; Start 04/07/19 at 17:00 Meropenem/Sodium Chloride 50 ml @ 100 mls/hr Q24H IVPB Last administered on 04/09/19at 14:27; Admin Dose 100 MLS/HR; Start 04/08/19 at 14:00 Midodrine (Proamatine) 5 mg TID@09,13,17 PO Last administered on 04/09/19at 12:26; Admin Dose 5 MG; Start 04/08/19 at 09:00 Vancomycin HCl (Vanco Iv Per Pharmacy) VANCOMYCIN PER PHARMACY PER PROTOCOL XX ; Start 04/09/19 at 11:30 Metronidazole 100 ml @ 100 mls/hr Q8 IVPB Last administered on 04/09/19at 12:26; Admin Dose 100 MLS/HR; Start 04/09/19 at 12:30 Vancomycin HCl 1.75 gm/Sodium Chloride 500 ml @ 125 mls/hr ONCE IVPB Last administered on 04/09/19at 14:27; Admin Dose 125 MLS/HR; Start 04/09/19 at 14:00; Stop 04/09/19 at 17:59 MOLLY DAMON MD Apr 09, 2019 16:12
[2019-04-09] MEDS: INSULIN GLARGINE [LANTus] (100 UNITS/ML) SYG SC SCH (19:57)
[2019-04-09] MEDS: ATORVASTATIN 20 MG TAB PO SCH (20:30)
[2019-04-09] MEDS: MONTELUKAST 10 MG TAB PO SCH (20:32)
[2019-04-10] VITALS (94 sets, daily range): BP systolic 52–135; BP diastolic 25–91; PULSE 69–109; RESP 16–33
[2019-04-10] MEDS: ACCU-CHEK XX SCH (02:00)
[2019-04-10] MEDS: DEXTROSE 5% 1,000 ML IV SCH (04:09)
[2019-04-10] MEDS: metroNIDAZOLE 500 MG/NS (PMX) 100 ML IVPB SCH (05:09)
[2019-04-10] MEDS: INSULIN ASPART [NOVOLOG] 3 ML PEN SC SCH ×4 (07:35→20:26)
[2019-04-10] MEDS: SEVELAMER CARBONATE 0.8 GM PKT PO SCH ×2 (07:35→17:35)
--- NOTE | 2019-04-10 08:15 | PN ---
DATE: 04/10/2019 SUBJECTIVE: The patient remains confused, critically ill on pressor support. No other events noted. No hemoptysis, hematemesis or hematochezia. OBJECTIVE: VITAL SIGNS: Blood pressure is 111/46, respirations 26, pulse 83, temperature 98.6. HEENT: Head is normocephalic. NECK: Supple. HEART: Regular rate. LUNGS: Show diminished breath sounds at the base. ABDOMEN: Soft, nontender to palpation without rebound or guarding. EXTREMITIES: Negative for clubbing, cyanosis. Trace edema. DERMATOLOGIC: No rashes. MUSCULOSKELETAL: No joint effusion. NEUROLOGIC: No change in exam. MEDICATIONS: Reviewed. LABORATORY DATA: Reviewed. IMAGING STUDIES: Reviewed. ASSESSMENT AND PLAN: 1. Septic shock. Etiology is secondary to bacteremia, gram-negative rods. Underlying source is unc lear, possibly intra-abdominal. The patient remains on pressor support. Continue current antibiotic regimen. Follow up with Infectious Disease. Continue to monitor cultures. 2. 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 The patient's tumor markers are markedly elevated. CA 19-9 is high. I appreciate Oncology's and GI's evaluation. The p atient is pending possible ERCP for further evaluation. Continue to monitor. The patient may eventu ally need a CT chest, abdomen and pelvis with IV contrast per Oncology. 3. Anemia. Continue to monitor hemoglobin and hematocrit levels. We will continue Epogen as needed . 4. Mineral bone disorder, monitor calcium and phosphorus levels. 5. Hematochezia. Continue to monitor hemoglobin and hematocrit levels. 6. End-stage renal disease. Plan is for hemodialysis today. We will dialyze 3 hours 2k bath, calci um 2.5. 7. Elevated troponin likely non-ST elevation myocardial infarction type 2. Continue to monitor. Fo llow up with Cardiology. 8. Diabetes. Continue current insulin regimen. 9. Arrhythmia with a pacemaker. Continue to monitor. Follow up with Cardiology. 10. Volume overload. Continue ultrafiltration with dialysis. 11. Acute encephalopathy, etiology is toxic metabolic. 12. Decubitus wound. Continue local wound care. Dictated By: ADA RANGEL DO NR/NTS Conf#: [id number] DID#: [id number] CC: TRAE TRAVIS MD; DYLAN GREENE MD;*EndCC*
[2019-04-10] MEDS: DOCUSATE SODIUM 100 MG CAP PO SCH ×2 (09:00→20:23)
[2019-04-10] MEDS: BALSAM PERU/CASTOR OIL 60 GM TUBE TOP SCH ×2 (09:00→20:27)
[2019-04-10] MEDS: MIDODRINE 5 MG TAB PO SCH ×3 (09:00→17:00)
[2019-04-10] MEDS: ASPIRIN (EC) 81 MG TAB PO SCH (09:00)
--- NOTE | 2019-04-10 09:40 | RADRPT ---
Vent Rate: 93 bpm RR Interval: 644 msec DC Interval: 214 msec QRS Duration: 199 msec QT Interval: 511 msec QTC Interval: 637 msec P-R-T [place]: 0 - -88 - 92 degrees Ventricular-paced rhythm vs LBBB Electronically Signed By: Maurice Washington
[2019-04-10] MEDS ORDERED: ALBUMIN HUMAN 25% 100 ML IV STA (10:29)
--- NOTE | 2019-04-10 12:10 | CONS ---
Assessment/Plan Assessment/Plan Hospital Course (Demo Recall) Patient is in hemodialysis looks comfortable still on Levophed drip WBC today 13.5 H&H 8.3 and 27.6 platelets 185 neutrophils 79 Microbiology: Blood culture on admission grew Bacteroides fragilis, repeat cx neg Indwelling's right upper extremity AV fistula Antimicrobials: Flagyl Merrem Physical examination: This is an obese well-developed chronically ill elderly [place] man who is in no distress. Head atraumatic normocephalic neck is supple chest rise symmetrical breath sounds diminished bases. Heart: S1-S2. Tachycardic abdomen soft obese bowel sounds hypoactive extremities without cyanosis, trace edema Assessment: 1. Sepsis with shock 2. Bacteremia ? source==>likely intraabdominal 3. End-stage renal disease, hemodialysis dependent 4. Recently diagnosed hepatocellular carcinoma, poss obstructing mass and peritoneal carcinomatosis 5. Coronary artery disease status post permanent pacemaker 6. Diabetes 7. Atrial fibrillation Plan: Remains hemodynamically unstable and overall doing poorly, continue abx, f/u GI/oncology rec-s, DC Flagpatsy Consultation Date/Type/Reason Admit Date/Time Apr 01, 2019 at 17:43 Initial Consult Date 04/03/19 Type of Consult id Requesting Provider: ADA RANGEL DO Date/Time of Note DATE: 04/10/19 TIME: 12:08 Exam/Review of Systems Exam Vitals Vital Signs Date Temp Pulse Resp B/P (MAP) Pulse Ox O2 O2 Flow FiO2 Time Delivery Rate 04/10/19 83 08:00 04/10/19 26 111/46 99 06:15 (67) 04/10/19 Nasal 2.0 06:00 Cannula 04/10/19 98.8 04:00 04/09/19 28 21:04 Intake and Output 04/09/19 04/09/19 04/10/19 1515:00 23:00 07:00 IntakeIntake Total 648.75 ml 619.37 ml 513.750 ml BalanceBalance 648.75 ml 619.37 ml 513.750 ml Results Result Diagram: 04/10/19 0400 04/10/19 0556 Results 24hrs Laboratory Tests Test 04/09/19 12:18 04/09/19 17:15 04/09/19 19:53 04/09/19 20:38 Bedside Glucose 138 154 165 Blood Gas Blood arterial Specimen Source Arterial Blood 04/09/2019 8:45:0 Date Drawn 0 PM Arterial Blood pH 7.517 H (Temp corrected) Arterial Blood 31.6 L pCO2 (Temp correct) Arterial Blood 67.0 L pO2 (Temp corrected) Arterial Blood 25.1 HCO3 Arterial Blood 2.5 Base Excess Arterial Blood 93.1 L Oxygen Saturation Ross Test ACCEPTAB Arterial Blood Left Radial Gas Puncture Site Arterial 0.6 Blood Carboxyhemo globin Arterial Blood 0.2 Methemoglobin Blood Gas A-a O2 44.9 H Differential Oxyhemoglobin 92.4 L Percent Blood Gas 37.0 Temperature Blood Gas ROOM AIR Modality FiO2 21.0 Blood Gas UP Notified Whom Blood Gas 04/09/2019 8:58:0 Notified Time 0 PM Test 04/09/19 20:43 04/10/19 02:41 04/10/19 04:00 04/10/19 04:33 Bedside Glucose 146 150 White Blood Count 13.5 H Red Blood Count 2.70 L Hemoglobin 8.3 L Hematocrit 27.6 L Mean Corpuscular 102.2 H Volume Mean Corpuscular 30.7 Hemoglobin Mean Corpuscular 30.1 L Hemoglobin Concen t Red Cell 17.1 H Distribution Width Platelet Count 185 Mean Platelet 10.6 H Volume Immature 1.600 H Granulocytes % Neutrophils % 79.0 H Lymphocytes % 9.1 L Monocytes % 10.0 Eosinophils % 0.1 Basophils % 0.2 Nucleated Red 0.0 Blood Cells % Immature 0.210 H Granulocytes # Neutrophils # 10.7 H Lymphocytes # 1.2 Monocytes # 1.4 H Eosinophils # 0.0 Basophils # 0.0 Nucleated Red 0.0 Blood Cells # Phosphorus Level 3.9 Magnesium Level 2.0 Test 04/10/19 05:56 04/10/19 09:04 Sodium Level 139 Potassium Level 4.1 Chloride Level 105 Carbon Dioxide 26 Level Anion Gap 8 Blood Urea 44 #H Nitrogen Creatinine 4.32 H Est Glomerular Filtrat Rate mL/min Glucose Level 144 Calcium Level 7.8 L Total Bilirubin 0.9 Direct Bilirubin 0.40 #H Indirect 0.5 Bilirubin Aspartate Amino 45 Transf (AST/SGOT) Alanine 38 Aminotransferase (ALT/SGPT) Alkaline 69 Phosphatase Total Protein 5.0 L Albumin 2.2 L Globulin 2.80 Albumin/Globulin 0.78 Ratio Bedside Glucose 154 Medications Medication Current Medications Amiodarone HCl (Cordarone) 200 mg DAILY PO Last administered on 04/09/19 15:21; Admin Dose 200 MG; Start 04/02/19 at 09:00 Aspirin (Halfprin) 81 mg DAILY PO Last administered on 04/09/19 15:21; Admin Dose 81 MG; Start 04/02/19 at 09:00 Atorvastatin Calcium (Lipitor) 20 mg QHS PO Last administered on 04/08/19 21:26; Admin Dose 20 MG; Start 04/01/19 at 21:00 Docusate Sodium (Colace) 100 mg BID PO Last administered on 04/09/19 15:21; Admin Dose 100 MG; Start 04/01/19 at 21:00 Montelukast Sodium (Singulair) 10 mg QHS PO Last administered on 04/08/19 21:26; Admin Dose 10 MG; Start 04/01/19 at 21:00 Sevelamer Carbonate (Renvela) 1.6 gm BID WITH MEALS PO Last administered on 04/09/19 17:24; Admin Dose 1.6 GM; Start 04/01/19 at 21:00 Albuterol/ Ipratropium (Duoneb) 3 ml Q2H RESP THERAPY PRN NEB SHORTNESS OF BREATH Last administered on 04/09/19 21:01; Admin Dose 3 ML; Start 04/01/19 at 21:00 Zolpidem Tartrate (Ambien) 5 mg QHS PRN PO INSOMNIA Last administered on 04/05/19 22:19; Admin Dose 5 MG; Start 04/01/19 at 21:00 Norepinephrine 250 ml @ 1.875 mls/ hr TITRATE IV Last administered on 04/09/19 17:35; Admin Dose 18.75 MLS/HR; Start 04/02/19 at 02:30 IV Flush (NS 10 ml) 10 ml PRN PRN IV IV PROTOCOL; Start 04/03/19 at 17:00 Epoetin Jatinder-epbx (Retacrit (Esrd)) 10,000 unit AFTER EACH DIALYSIS SC Last administered on 04/09/19 11:54; Admin Dose 10,000 UNIT; Start 04/04/19 at 16:00 Miscellaneous Information 1 ea NOTE XX ; Start 04/05/19 at 11:30 Glucose (Glutose) 15 gm Q15M PRN PO DECREASED GLUCOSE; Start 04/05/19 at 11:30 Glucose (Glutose) 22.5 gm Q15M PRN PO DECREASED GLUCOSE; Start 04/05/19 at 11:30 Dextrose (D50w Syringe) 25 ml Q15M PRN IV DECREASED GLUCOSE; Start 04/05/19 at 11:30 Dextrose (D50w Syringe) 50 ml Q15M PRN IV DECREASED GLUCOSE; Start 04/05/19 at 11:30 Glucagon (Glucagen) 1 mg Q15M PRN IM DECREASED GLUCOSE; Start 04/05/19 at 11:30 Glucose (Glutose) 15 gm Q15M PRN BUCCAL DECREASED GLUCOSE; Start 04/05/19 at 11:30 Diagnostic Test (Pha) (Accu-Chek) 1 ea 02 XX Last administered on 04/06/19at 01: 17; Admin Dose 1 EA; Start 04/06/19 at 02:00 Insulin Aspart (Novolog Insulin Pen) NOVOLOG *MILD* ALGORITHM WITH MEALS BEDTIME SC Last administered on 04/09/19at 20:52; Admin Dose 1 UNIT; Start 04/05/19 at 17:35 Insulin Glargine (Lantus) 20 units DAILY@2000 SC Last administered on 04/09/19at 19:57; Admin Dose 20 UNITS; Start 04/06/19 at 20:00 Dextrose 1,000 ml @ 50 mls/hr Q20H IV Last administered on 04/10/19at 04:09; Admin Dose 50 MLS/HR; Start 04/07/19 at 16:00 Ondansetron HCl (Zofran Inj) 4 mg Q6H PRN IV NAUSEA AND/OR VOMITING; Start 04/07/19 at 17:00 Meropenem/Sodium Chloride 50 ml @ 100 mls/hr Q24H IVPB Last administered on 04/09/19at 14:27; Admin Dose 100 MLS/HR; Start 04/08/19 at 14:00 Midodrine (Proamatine) 5 mg TID@09,13,17 PO Last administered on 04/09/19at 17:24; Admin Dose 5 MG; Start 04/08/19 at 09:00 Vancomycin HCl (Vanco Iv Per Pharmacy) VANCOMYCIN PER PHARMACY PER PROTOCOL XX ; Start 04/09/19 at 11:30 Metronidazole 100 ml @ 100 mls/hr Q8 IVPB Last administered on 04/10/19at 05:09; Admin Dose 100 MLS/HR; Start 04/09/19 at 12:30 JOAO RAHMAN NP Apr 10, 2019 12:10
--- NOTE | 2019-04-10 12:19 | CONS ---
Consult Date/Type/Reason Admit Date/Time Apr 01, 2019 at 17:43 Initial Consult Date 04/03/19 Type of Consult Pulmonary Requesting Provider: ADA RANGEL DO Date/Time of Note DATE: 04/10/19 TIME: 12:16 Subjective Patient comfortable no respiratory distress Objective Vital Signs Date Temp Pulse Resp B/P (MAP) Pulse Ox O2 O2 Flow FiO2 Time Delivery Rate 04/10/19 107 26 98/55 (69) 99 11:30 04/10/19 Nasal 11:00 Cannula 04/10/19 97.3 08:00 04/10/19 2.0 06:00 04/09/19 28 21:04 Intake and Output 04/09/19 04/09/19 04/10/19 1515:00 23:00 07:00 IntakeIntake Total 648.75 ml 619.37 ml 513.750 ml BalanceBalance 648.75 ml 619.37 ml 513.750 ml Exam GENERAL: Elderly appearing gentleman on facemask O2 no respiratory distress continues Levophed currently having hemodialysis VITAL SIGNS: per chart NECK: Supple. No JVD or lymphadenopathy. CARDIAC EXAM: S1, S2. No added sounds or murmurs. CHEST: clear bilaterally, No added sounds, rales or wheezes ABDOMEN: Soft, nontender. No guarding or rebound. EXTREMITIES: No cyanosis, clubbing or edema. NEUROLOGIC: Generalized weakness. No focal deficits. Vent Setting Fraction of Inspired Oxygen pe: 28 Results/Medications Result Diagram: 04/10/19 0400 04/10/19 0556 Results 24 hrs Laboratory Tests Test 04/09/19 12:18 04/09/19 17:15 04/09/19 19:53 04/09/19 20:38 Bedside Glucose 138 154 165 Blood Gas Blood arterial Specimen Source Arterial Blood 04/09/2019 8:45:0 Date Drawn 0 PM Arterial Blood pH 7.517 H (Temp corrected) Arterial Blood 31.6 L pCO2 (Temp correct) Arterial Blood 67.0 L pO2 (Temp corrected) Arterial Blood 25.1 HCO3 Arterial Blood 2.5 Base Excess Arterial Blood 93.1 L Oxygen Saturation Ross Test ACCEPTAB Arterial Blood Left Radial Gas Puncture Site Arterial 0.6 Blood Carboxyhemo globin Arterial Blood 0.2 Methemoglobin Blood Gas A-a O2 44.9 H Differential Oxyhemoglobin 92.4 L Percent Blood Gas 37.0 Temperature Blood Gas ROOM AIR Modality FiO2 21.0 Blood Gas UP Notified Whom Blood Gas 04/09/2019 8:58:0 Notified Time 0 PM Test 04/09/19 20:43 04/10/19 02:41 04/10/19 04:00 04/10/19 04:33 Bedside Glucose 146 150 White Blood Count 13.5 H Red Blood Count 2.70 L Hemoglobin 8.3 L Hematocrit 27.6 L Mean Corpuscular 102.2 H Volume Mean Corpuscular 30.7 Hemoglobin Mean Corpuscular 30.1 L Hemoglobin Concen t Red Cell 17.1 H Distribution Width Platelet Count 185 Mean Platelet 10.6 H Volume Immature 1.600 H Granulocytes % Neutrophils % 79.0 H Lymphocytes % 9.1 L Monocytes % 10.0 Eosinophils % 0.1 Basophils % 0.2 Nucleated Red 0.0 Blood Cells % Immature 0.210 H Granulocytes # Neutrophils # 10.7 H Lymphocytes # 1.2 Monocytes # 1.4 H Eosinophils # 0.0 Basophils # 0.0 Nucleated Red 0.0 Blood Cells # Phosphorus Level 3.9 Magnesium Level 2.0 Test 04/10/19 05:56 04/10/19 09:04 Sodium Level 139 Potassium Level 4.1 Chloride Level 105 Carbon Dioxide 26 Level Anion Gap 8 Blood Urea 44 #H Nitrogen Creatinine 4.32 H Est Glomerular Filtrat Rate mL/min Glucose Level 144 Calcium Level 7.8 L Total Bilirubin 0.9 Direct Bilirubin 0.40 #H Indirect 0.5 Bilirubin Aspartate Amino 45 Transf (AST/SGOT) Alanine 38 Aminotransferase (ALT/SGPT) Alkaline 69 Phosphatase Total Protein 5.0 L Albumin 2.2 L Globulin 2.80 Albumin/Globulin 0.78 Ratio Bedside Glucose 154 Medications Current Medications Amiodarone HCl (Cordarone) 200 mg DAILY PO Last administered on 04/09/19at 15:21; Admin Dose 200 MG; Start 04/02/19 at 09:00 Aspirin (Halfprin) 81 mg DAILY PO Last administered on 04/09/19at 15:21; Admin Dose 81 MG; Start 04/02/19 at 09:00 Atorvastatin Calcium (Lipitor) 20 mg QHS PO Last administered on 04/08/19at 21:26; Admin Dose 20 MG; Start 04/01/19 at 21:00 Docusate Sodium (Colace) 100 mg BID PO Last administered on 04/09/19 15:21; Admin Dose 100 MG; Start 04/01/19 at 21:00 Montelukast Sodium (Singulair) 10 mg QHS PO Last administered on 04/08/19 21:26; Admin Dose 10 MG; Start 04/01/19 at 21:00 Sevelamer Carbonate (Renvela) 1.6 gm BID WITH MEALS PO Last administered on 04/09/19 17:24; Admin Dose 1.6 GM; Start 04/01/19 at 21:00 Albuterol/ Ipratropium (Duoneb) 3 ml Q2H RESP THERAPY PRN NEB SHORTNESS OF BREATH Last administered on 04/09/19 21:01; Admin Dose 3 ML; Start 04/01/19 at 21:00 Zolpidem Tartrate (Ambien) 5 mg QHS PRN PO INSOMNIA Last administered on 04/05/19 22:19; Admin Dose 5 MG; Start 04/01/19 at 21:00 Norepinephrine 250 ml @ 1.875 mls/ hr TITRATE IV Last administered on 04/09/19 17:35; Admin Dose 18.75 MLS/HR; Start 04/02/19 at 02:30 IV Flush (NS 10 ml) 10 ml PRN PRN IV IV PROTOCOL; Start 04/03/19 at 17:00 Epoetin Jatinder-epbx (Retacrit (Esrd)) 10,000 unit AFTER EACH DIALYSIS SC Last administered on 04/09/19at 11:54; Admin Dose 10,000 UNIT; Start 04/04/19 at 16:00 Miscellaneous Information 1 ea NOTE XX ; Start 04/05/19 at 11:30 Glucose (Glutose) 15 gm Q15M PRN PO DECREASED GLUCOSE; Start 04/05/19 at 11:30 Glucose (Glutose) 22.5 gm Q15M PRN PO DECREASED GLUCOSE; Start 04/05/19 at 11:30 Dextrose (D50w Syringe) 25 ml Q15M PRN IV DECREASED GLUCOSE; Start 04/05/19 at 11:30 Dextrose (D50w Syringe) 50 ml Q15M PRN IV DECREASED GLUCOSE; Start 04/05/19 at 11:30 Glucagon (Glucagen) 1 mg Q15M PRN IM DECREASED GLUCOSE; Start 04/05/19 at 11:30 Glucose (Glutose) 15 gm Q15M PRN BUCCAL DECREASED GLUCOSE; Start 04/05/19 at 11:30 Diagnostic Test (Pha) (Accu-Chek) 1 ea 02 XX Last administered on 04/06/19at 01:17; Admin Dose 1 EA; Start 04/06/19 at 02:00 Insulin Aspart (Novolog Insulin Pen) NOVOLOG *MILD* ALGORITHM WITH MEALS BEDTIME SC Last administered on 04/09/19at 20:52; Admin Dose 1 UNIT; Start 04/05/19 at 17:35 Insulin Glargine (Lantus) 20 units DAILY@2000 SC Last administered on 04/09/19at 19:57; Admin Dose 20 UNITS; Start 04/06/19 at 20:00 Dextrose 1,000 ml @ 50 mls/hr Q20H IV Last administered on 04/10/19at 04:09; Admin Dose 50 MLS/HR; Start 04/07/19 at 16:00 Ondansetron HCl (Zofran Inj) 4 mg Q6H PRN IV NAUSEA AND/OR VOMITING; Start 04/07/19 at 17:00 Meropenem/Sodium Chloride 50 ml @ 100 mls/hr Q24H IVPB Last administered on 04/09/19at 14:27; Admin Dose 100 MLS/HR; Start 04/08/19 at 14:00 Midodrine (Proamatine) 5 mg TID@09,13,17 PO Last administered on 04/09/19at 17:24; Admin Dose 5 MG; Start 04/08/19 at 09:00 Vancomycin HCl (Vanco Iv Per Pharmacy) VANCOMYCIN PER PHARMACY PER PROTOCOL XX ; Start 04/09/19 at 11:30 Miscellaneous Information (*Rx Drug Level Order Reminder*) VANCO RANDOM 0500 ONCE XX ; Start 04/11/19 at 05:00; Stop 04/11/19 at 05:01 Assessment/Plan Hospital Course (Demo Recall) Assessment 1. Septic shock requiring vasopressor support blood cultures positive for Bacteroides 2. History of end-stage renal failure on hemodialysis 3. History of hepatocellular CA 4. History of arrhythmia with pacemaker 5. Diabetes mellitus Plan 1. Continue supplemental O2 as needed 2. Hemodialysis with volume removal 3. Continue antibiotics per ID 4. Aspiration precautions 5. Titrate vasopressors to keep map greater than 65 Critical care time 40 minutes TRAE TRAVIS MD, [facility] Apr 10, 2019 12:19
--- NOTE | 2019-04-10 12:36 | CONS ---
Assessment/Plan Assessment/Plan Hospital Course (Demo Recall) 83 yo with multiple medical problems admitted for hypotension and ascites, CT showed peritoneal carcinomatosis, there is also severe dilatation of left intrahepatic biliary ducts. Ca 19-9 is very elevated, AFP not elevated - he had paracentesis at outside hospital, if cytology was performed on that it would be helpful to have that information. My office has requested that from [facility] -at this time he is in ICU and critical -as part of w/u when he is more stable will recommend CT CAP with contrast -has been seen by GI, Dr Schuster. AFP is not elevated so less likely to be hepatocellular ca and more likely to be cholangiocarcinoma -cholangiocarcinoma carries poor prognosis. once pt is more stable, if at that time family and pt want to pursue diagnosis he would likely need ERCP and biopsy -await til we have the pathology results and he is more stable before making treatment recommendations Consultation Date/Type/Reason Admit Date/Time Apr 01, 2019 at 17:43 Initial Consult Date 04/03/19 Requesting Provider: ADA RANGEL DO Date/Time of Note DATE: 04/10/19 TIME: 12:36 24 HR Interval Summary Free Text/Dictation resting comfortably on pressors Exam/Review of Systems Exam Vitals Vital Signs Date Temp Pulse Resp B/P (MAP) Pulse Ox O2 O2 Flow FiO2 Time Delivery Rate 04/10/19 107 26 98/55 (69) 99 11:30 04/10/19 Nasal 11:00 Cannula 04/10/19 97.3 08:00 04/10/19 2.0 06:00 04/09/19 28 21:04 Intake and Output 04/09/19 04/09/19 04/10/19 1515:00 23:00 07:00 IntakeIntake Total 648.75 ml 619.37 ml 513.750 ml BalanceBalance 648.75 ml 619.37 ml 513.750 ml Constitutional: well developed, frail Head: normocephalic, atraumatic Eyes: nl conjunctiva Gastrointestinal: soft, distended Results Result Diagram: 04/10/19 0400 04/10/19 0556 Results 24hrs Laboratory Tests Test 04/09/19 17:15 04/09/19 19:53 04/09/19 20:38 04/09/19 20:43 Bedside Glucose 154 165 146 Blood Gas Blood arterial Specimen Source Arterial Blood 04/09/2019 8:45:0 Date Drawn 0 PM Arterial Blood pH 7.517 H (Temp corrected) Arterial Blood 31.6 L pCO2 (Temp correct) Arterial Blood 67.0 L pO2 (Temp corrected) Arterial Blood 25.1 HCO3 Arterial Blood 2.5 Base Excess Arterial Blood 93.1 L Oxygen Saturation Ross Test ACCEPTAB Arterial Blood Left Radial Gas Puncture Site Arterial 0.6 Blood Carboxyhemo globin Arterial Blood 0.2 Methemoglobin Blood Gas A-a O2 44.9 H Differential Oxyhemoglobin 92.4 L Percent Blood Gas 37.0 Temperature Blood Gas ROOM AIR Modality FiO2 21.0 Blood Gas UP Notified Whom Blood Gas 04/09/2019 8:58:0 Notified Time 0 PM Test 04/10/19 02:41 04/10/19 04:00 04/10/19 04:33 04/10/19 05:56 Bedside Glucose 150 White Blood Count 13.5 H Red Blood Count 2.70 L Hemoglobin 8.3 L Hematocrit 27.6 L Mean Corpuscular 102.2 H Volume Mean Corpuscular 30.7 Hemoglobin Mean Corpuscular 30.1 L Hemoglobin Concen t Red Cell 17.1 H Distribution Width Platelet Count 185 Mean Platelet 10.6 H Volume Immature 1.600 H Granulocytes % Neutrophils % 79.0 H Lymphocytes % 9.1 L Monocytes % 10.0 Eosinophils % 0.1 Basophils % 0.2 Nucleated Red 0.0 Blood Cells % Immature 0.210 H Granulocytes # Neutrophils # 10.7 H Lymphocytes # 1.2 Monocytes # 1.4 H Eosinophils # 0.0 Basophils # 0.0 Nucleated Red 0.0 Blood Cells # Phosphorus Level 3.9 Magnesium Level 2.0 Sodium Level 139 Potassium Level 4.1 Chloride Level 105 Carbon Dioxide 26 Level Anion Gap 8 Blood Urea 44 #H Nitrogen Creatinine 4.32 H Est Glomerular Filtrat Rate mL/min Glucose Level 144 Calcium Level 7.8 L Total Bilirubin 0.9 Direct Bilirubin 0.40 #H Indirect 0.5 Bilirubin Aspartate Amino 45 Transf (AST/SGOT) Alanine 38 Aminotransferase (ALT/SGPT) Alkaline 69 Phosphatase Total Protein 5.0 L Albumin 2.2 L Globulin 2.80 Albumin/Globulin 0.78 Ratio Test 04/10/19 09:04 Bedside Glucose 154 Medications Medication Current Medications Amiodarone HCl (Cordarone) 200 mg DAILY PO Last administered on 04/09/19 15:21; Admin Dose 200 MG; Start 04/02/19 at 09:00 Aspirin (Halfprin) 81 mg DAILY PO Last administered on 04/09/19 15:21; Admin Dose 81 MG; Start 04/02/19 at 09:00 Atorvastatin Calcium (Lipitor) 20 mg QHS PO Last administered on 04/08/19 21:26; Admin Dose 20 MG; Start 04/01/19 at 21:00 Docusate Sodium (Colace) 100 mg BID PO Last administered on 04/09/19 15:21; Admin Dose 100 MG; Start 04/01/19 at 21:00 Montelukast Sodium (Singulair) 10 mg QHS PO Last administered on 04/08/19 21:26; Admin Dose 10 MG; Start 04/01/19 at 21:00 Sevelamer Carbonate (Renvela) 1.6 gm BID WITH MEALS PO Last administered on 04/09/19 17:24; Admin Dose 1.6 GM; Start 04/01/19 at 21:00 Albuterol/ Ipratropium (Duoneb) 3 ml Q2H RESP THERAPY PRN NEB SHORTNESS OF BREATH Last administered on 04/09/19 21:01; Admin Dose 3 ML; Start 04/01/19 at 21:00 Zolpidem Tartrate (Ambien) 5 mg QHS PRN PO INSOMNIA Last administered on 04/05/19 22:19; Admin Dose 5 MG; Start 04/01/19 at 21:00 Norepinephrine 250 ml @ 1.875 mls/ hr TITRATE IV Last administered on 04/09/19 17:35; Admin Dose 18.75 MLS/HR; Start 04/02/19 at 02:30 IV Flush (NS 10 ml) 10 ml PRN PRN IV IV PROTOCOL; Start 04/03/19 at 17:00 Epoetin Jatinder-epbx (Retacrit (Esrd)) 10,000 unit AFTER EACH DIALYSIS SC Last administered on 04/09/19 11:54; Admin Dose 10,000 UNIT; Start 04/04/19 at 16:00 Miscellaneous Information 1 ea NOTE XX ; Start 04/05/19 at 11:30 Glucose (Glutose) 15 gm Q15M PRN PO DECREASED GLUCOSE; Start 04/05/19 at 11:30 Glucose (Glutose) 22.5 gm Q15M PRN PO DECREASED GLUCOSE; Start 04/05/19 at 11:30 Dextrose (D50w Syringe) 25 ml Q15M PRN IV DECREASED GLUCOSE; Start 04/05/19 at 11:30 Dextrose (D50w Syringe) 50 ml Q15M PRN IV DECREASED GLUCOSE; Start 04/05/19 at 11:30 Glucagon (Glucagen) 1 mg Q15M PRN IM DECREASED GLUCOSE; Start 04/05/19 at 11:30 Glucose (Glutose) 15 gm Q15M PRN BUCCAL DECREASED GLUCOSE; Start 04/05/19 at 11:30 Diagnostic Test (Pha) (Accu-Chek) 1 ea 02 XX Last administered on 04/06/19at 01:17; Admin Dose 1 EA; Start 04/06/19 at 02:00 Insulin Aspart (Novolog Insulin Pen) NOVOLOG *MILD* ALGORITHM WITH MEALS BEDTIME SC Last administered on 04/09/19at 20:52; Admin Dose 1 UNIT; Start 04/05/19 at 17:35 Insulin Glargine (Lantus) 20 units DAILY@2000 SC Last administered on 04/09/19at 19:57; Admin Dose 20 UNITS; Start 04/06/19 at 20:00 Dextrose 1,000 ml @ 50 mls/hr Q20H IV Last administered on 04/10/19at 04:09; Admin Dose 50 MLS/HR; Start 04/07/19 at 16:00 Ondansetron HCl (Zofran Inj) 4 mg Q6H PRN IV NAUSEA AND/OR VOMITING; Start 04/07/19 at 17:00 Meropenem/Sodium Chloride 50 ml @ 100 mls/hr Q24H IVPB Last administered on 04/09/19at 14:27; Admin Dose 100 MLS/HR; Start 04/08/19 at 14:00 Midodrine (Proamatine) 5 mg TID@09,13,17 PO Last administered on 04/09/19at 17:24; Admin Dose 5 MG; Start 04/08/19 at 09:00 Vancomycin HCl (Vanco Iv Per Pharmacy) VANCOMYCIN PER PHARMACY PER PROTOCOL XX ; Start 04/09/19 at 11:30 Miscellaneous Information (*Rx Drug Level Order Reminder*) VANCO RANDOM 0500 ONCE XX ; Start 04/11/19 at 05:00; Stop 04/11/19 at 05:01 TAMMY NEWSOME Apr 10, 2019 12:36
[2019-04-10] MEDS: NORepinephrine 8MG/250 ML (PMX 250 ML IV SCH (13:25)
--- NOTE | 2019-04-10 13:46 | CONS ---
Assessment/Plan Assessment/Plan Hospital Course (Demo Recall) 83 yo male 1. Severe sepsis. -Bacteremia with possible intra-abdominal etiology 2. Ascites. 3. Pneumonia. 4. Hepatocellular cancer with carcinomatosis. -CA 199 1000 and alpha-fetoprotein was within normal limit. This cancer cell marker are more in favor of cholangiocarcinoma rather than hepatocellular cancer. 5. Diabetes mellitus. 6. Atrial fibrillation. 7. Congestive heart failure. 8. Dilated left-sided biliary system. 9. Anemia. -positive fob, low iron, tibc, %sat, high ferritin Plan -Monitor HH and for acute GI bleeding, consider EGD and colon once stable -Pt needs ERCP but deemed too unstable per anesthesiology. No cardiac clearance given yet. Still requiring pressor support Pt examined and plan of care d/w Dr Schuster Consultation Date/Type/Reason Admit Date/Time Apr 01, 2019 at 17:43 Initial Consult Date 04/03/19 Requesting Provider: ADA RANGEL DO Date/Time of Note DATE: 04/10/19 TIME: 13:31 24 HR Interval Summary Free Text/Dictation started on clear liquid diet today. Received HD today. C/O abd pain Exam/Review of Systems Exam Vitals Vital Signs Date Temp Pulse Resp B/P (MAP) Pulse Ox O2 O2 Flow FiO2 Time Delivery Rate 04/10/19 100 20 120/54 100 Nasal 1.0 12:38 (76) Cannula 04/10/19 97.3 08:00 04/09/19 28 21:04 Intake and Output 04/09/19 04/09/19 04/10/19 1414:59 22:59 06:59 IntakeIntake Total 602.5 ml 688.12 ml 563.750 ml BalanceBalance 602.5 ml 688.12 ml 563.750 ml Head: normocephalic Eyes: PERRL Respiratory: normal air movement Cardiovascular: regular rate and rhythm Gastrointestinal: distended, tender Neurological: lethargic Results Result Diagram: 04/10/19 0400 04/10/19 0556 Results 24hrs Laboratory Tests Test 04/09/19 17:15 04/09/19 19:53 04/09/19 20:38 04/09/19 20:43 Bedside Glucose 154 165 146 Blood Gas Blood arterial Specimen Source Arterial Blood 04/09/2019 8:45:0 Date Drawn 0 PM Arterial Blood pH 7.517 H (Temp corrected) Arterial Blood 31.6 L pCO2 (Temp correct) Arterial Blood 67.0 L pO2 (Temp corrected) Arterial Blood 25.1 HCO3 Arterial Blood 2.5 Base Excess Arterial Blood 93.1 L Oxygen Saturation Ross Test ACCEPTAB Arterial Blood Left Radial Gas Puncture Site Arterial 0.6 Blood Carboxyhemo globin Arterial Blood 0.2 Methemoglobin Blood Gas A-a O2 44.9 H Differential Oxyhemoglobin 92.4 L Percent Blood Gas 37.0 Temperature Blood Gas ROOM AIR Modality FiO2 21.0 Blood Gas UP Notified Whom Blood Gas 04/09/2019 8:58:0 Notified Time 0 PM Test 04/10/19 02:41 04/10/19 04:00 04/10/19 04:33 04/10/19 05:56 Bedside Glucose 150 White Blood Count 13.5 H Red Blood Count 2.70 L Hemoglobin 8.3 L Hematocrit 27.6 L Mean Corpuscular 102.2 H Volume Mean Corpuscular 30.7 Hemoglobin Mean Corpuscular 30.1 L Hemoglobin Concen t Red Cell 17.1 H Distribution Width Platelet Count 185 Mean Platelet 10.6 H Volume Immature 1.600 H Granulocytes % Neutrophils % 79.0 H Lymphocytes % 9.1 L Monocytes % 10.0 Eosinophils % 0.1 Basophils % 0.2 Nucleated Red 0.0 Blood Cells % Immature 0.210 H Granulocytes # Neutrophils # 10.7 H Lymphocytes # 1.2 Monocytes # 1.4 H Eosinophils # 0.0 Basophils # 0.0 Nucleated Red 0.0 Blood Cells # Phosphorus Level 3.9 Magnesium Level 2.0 Sodium Level 139 Potassium Level 4.1 Chloride Level 105 Carbon Dioxide 26 Level Anion Gap 8 Blood Urea 44 #H Nitrogen Creatinine 4.32 H Est Glomerular Filtrat Rate mL/min Glucose Level 144 Calcium Level 7.8 L Total Bilirubin 0.9 Direct Bilirubin 0.40 #H Indirect 0.5 Bilirubin Aspartate Amino 45 Transf (AST/SGOT) Alanine 38 Aminotransferase (ALT/SGPT) Alkaline 69 Phosphatase Total Protein 5.0 L Albumin 2.2 L Globulin 2.80 Albumin/Globulin 0.78 Ratio Test 04/10/19 09:04 04/10/19 13:05 Bedside Glucose 154 122 Medications Medication Current Medications Amiodarone HCl (Cordarone) 200 mg DAILY PO Last administered on 04/09/19 15:21; Admin Dose 200 MG; Start 04/02/19 at 09:00 Aspirin (Halfprin) 81 mg DAILY PO Last administered on 04/09/19 15:21; Admin Dose 81 MG; Start 04/02/19 at 09:00 Atorvastatin Calcium (Lipitor) 20 mg QHS PO Last administered on 04/08/19 21:26; Admin Dose 20 MG; Start 04/01/19 at 21:00 Docusate Sodium (Colace) 100 mg BID PO Last administered on 04/09/19 15:21; Admin Dose 100 MG; Start 04/01/19 at 21:00 Montelukast Sodium (Singulair) 10 mg QHS PO Last administered on 04/08/19 21:26; Admin Dose 10 MG; Start 04/01/19 at 21:00 Sevelamer Carbonate (Renvela) 1.6 gm BID WITH MEALS PO Last administered on 04/09/19 17:24; Admin Dose 1.6 GM; Start 04/01/19 at 21:00 Albuterol/ Ipratropium (Duoneb) 3 ml Q2H RESP THERAPY PRN NEB SHORTNESS OF BREATH Last administered on 04/09/19 21:01; Admin Dose 3 ML; Start 04/01/19 at 21:00 Zolpidem Tartrate (Ambien) 5 mg QHS PRN PO INSOMNIA Last administered on 04/05/19 22:19; Admin Dose 5 MG; Start 04/01/19 at 21:00 Norepinephrine 250 ml @ 1.875 mls/ hr TITRATE IV Last administered on 04/10/19 t 13:25; Admin Dose 13.125 MLS/HR; Start 04/02/19 at 02:30 IV Flush (NS 10 ml) 10 ml PRN PRN IV IV PROTOCOL; Start 04/03/19 at 17:00 Epoetin Jatinder-epbx (Retacrit (Esrd)) 10,000 unit AFTER EACH DIALYSIS SC Last administered on 04/09/19 11:54; Admin Dose 10,000 UNIT; Start 04/04/19 at 16:00 Miscellaneous Information 1 ea NOTE XX ; Start 04/05/19 at 11:30 Glucose (Glutose) 15 gm Q15M PRN PO DECREASED GLUCOSE; Start 04/05/19 at 11:30 Glucose (Glutose) 22.5 gm Q15M PRN PO DECREASED GLUCOSE; Start 04/05/19 at 11:30 Dextrose (D50w Syringe) 25 ml Q15M PRN IV DECREASED GLUCOSE; Start 04/05/19 at 11:30 Dextrose (D50w Syringe) 50 ml Q15M PRN IV DECREASED GLUCOSE; Start 04/05/19 at 11:30 Glucagon (Glucagen) 1 mg Q15M PRN IM DECREASED GLUCOSE; Start 04/05/19 at 11:30 Glucose (Glutose) 15 gm Q15M PRN BUCCAL DECREASED GLUCOSE; Start 04/05/19 at 11:30 Diagnostic Test (Pha) (Accu-Chek) 1 ea 02 XX Last administered on 04/06/19at 01:17; Admin Dose 1 EA; Start 04/06/19 at 02:00 Insulin Aspart (Novolog Insulin Pen) NOVOLOG *MILD* ALGORITHM WITH MEALS BEDTIME SC Last administered on 04/09/19at 20:52; Admin Dose 1 UNIT; Start 04/05/19 at 17:35 Insulin Glargine (Lantus) 20 units DAILY@2000 SC Last administered on 04/09/19at 19:57; Admin Dose 20 UNITS; Start 04/06/19 at 20:00 Dextrose 1,000 ml @ 50 mls/hr Q20H IV Last administered on 04/10/19at 04:09; Admin Dose 50 MLS/HR; Start 04/07/19 at 16:00 Ondansetron HCl (Zofran Inj) 4 mg Q6H PRN IV NAUSEA AND/OR VOMITING; Start 04/07/19 at 17:00 Meropenem/Sodium Chloride 50 ml @ 100 mls/hr Q24H IVPB Last administered on 04/09/19at 14:27; Admin Dose 100 MLS/HR; Start 04/08/19 at 14:00 Midodrine (Proamatine) 5 mg TID@09,13,17 PO Last administered on 04/09/19at 17:24; Admin Dose 5 MG; Start 04/08/19 at 09:00 Vancomycin HCl (Vanco Iv Per Pharmacy) VANCOMYCIN PER PHARMACY PER PROTOCOL XX ; Start 04/09/19 at 11:30 Miscellaneous Information (*Rx Drug Level Order Reminder*) VANCO RANDOM 0500 ONCE XX ; Start 04/11/19 at 05:00; Stop 04/11/19 at 05:01 ARIANA GUERRA Apr 10, 2019 13:43
[2019-04-10] MEDS: AMIODARONE 200 MG TAB PO SCH (15:51)
[2019-04-10] MEDS: MEROPENEM 500MG/50 ML (PMX) 50 ML IVPB SCH (15:52)
[2019-04-10] MEDS: EPOETIN ALFA-EPBX (ESRD) 10,000 UNIT/ML VIAL SC SCH (15:55)
--- NOTE | 2019-04-10 18:46 | CONS ---
Consult Date/Type/Reason Admit Date/Time Apr 01, 2019 at 17:43 Initial Consult Date 04/03/19 Type of Consultation: cv Requesting Provider: ADA RANGEL DO Date/Time of Note DATE: 04/10/19 TIME: 18:37 Subjective Cardiology follow-up progress note Subjective: Discussed with the staff. Telemetry was reviewed. Patient has remained in sinus rhythm./ demand pacing Patient remains in ICU and back on levophed drip due to recurrent hypotension No report of any chest pain or pressure d/w family Objective: General: no acute distress HEENT: NC/AT. pupils are equal. round. NECK: no stridor. CV: RRR. systolic murmur; no gallop or rubs. PULM: no wheezing or rhonchi. GI: SOFT, NT, ND, no rebound or guarding Extremity: trace B/L LE edema. no clubbing. neuro: awake Psych: calm rectal: deferred EKG shows ventricular paced rhythm Chest x-ray done 03/24/2019 shows: 1. New left-sided PICC in proximal SVC. 2. Persistent small left-sided pleural effusion with left lung base atelectasis/infiltrate. 3. Persistent patchy opacity of the right lung base. 4. Persistent cardiomegaly with mild vascular congestion CT 1. Again noted is severe dilatation of left intrahepatic biliary ducts. No gross evidence of hepatic mass is seen, though sensitivity is markedly limited without IV contrast. Findings remain concerning for obstructive mass in the central left hepatic lobe, as described in the prior CT report. 2. Findings compatible with peritoneal carcinomatosis. Moderate ascites, grossly stable. 3. Stable mild cardiomegaly. Coronary arterial and aortoiliac atherosclerotic calcifications. 4. Mild to moderate bilateral pleural effusions, grossly stable. Bibasilar atelectasis. 5. Cholelithiasis, without evidence for cholecystitis. 6. Chronic bilateral renal cortical thinning and atrophy, unchanged. Objective Vitals Vital Signs Date Temp Pulse Resp B/P (MAP) Pulse Ox O2 O2 Flow FiO2 Time Delivery Rate 04/10/19 80 22 109/48 92 17:45 (68) 04/10/19 Room Air 17:00 04/10/19 99.5 16:00 04/10/19 1.0 12:38 04/09/19 28 21:04 Intake and Output 04/09/19 04/09/19 04/10/19 1515:00 23:00 07:00 IntakeIntake Total 648.75 ml 619.37 ml 569.375 ml BalanceBalance 648.75 ml 619.37 ml 569.375 ml Results/Medications Result Diagram: 04/10/19 0400 04/10/19 0556 Results 24 hrs Laboratory Tests Test 04/09/19 19:53 04/09/19 20:38 04/09/19 20:43 04/10/19 02:41 Bedside Glucose 165 146 150 Blood Gas Blood arterial Specimen Source Arterial Blood 04/09/2019 8:45:0 Date Drawn 0 PM Arterial Blood pH 7.517 H (Temp corrected) Arterial Blood 31.6 L pCO2 (Temp correct) Arterial Blood 67.0 L pO2 (Temp corrected) Arterial Blood 25.1 HCO3 Arterial Blood 2.5 Base Excess Arterial Blood 93.1 L Oxygen Saturation Ross Test ACCEPTAB Arterial Blood Left Radial Gas Puncture Site Arterial 0.6 Blood Carboxyhemo globin Arterial Blood 0.2 Methemoglobin Blood Gas A-a O2 44.9 H Differential Oxyhemoglobin 92.4 L Percent Blood Gas 37.0 Temperature Blood Gas ROOM AIR Modality FiO2 21.0 Blood Gas UP Notified Whom Blood Gas 04/09/2019 8:58:0 Notified Time 0 PM Test 04/10/19 04:00 04/10/19 04:33 04/10/19 05:56 04/10/19 09:04 White Blood Count 13.5 H Red Blood Count 2.70 L Hemoglobin 8.3 L Hematocrit 27.6 L Mean Corpuscular 102.2 H Volume Mean Corpuscular 30.7 Hemoglobin Mean Corpuscular 30.1 L Hemoglobin Concen t Red Cell 17.1 H Distribution Width Platelet Count 185 Mean Platelet 10.6 H Volume Immature 1.600 H Granulocytes % Neutrophils % 79.0 H Lymphocytes % 9.1 L Monocytes % 10.0 Eosinophils % 0.1 Basophils % 0.2 Nucleated Red 0.0 Blood Cells % Immature 0.210 H Granulocytes # Neutrophils # 10.7 H Lymphocytes # 1.2 Monocytes # 1.4 H Eosinophils # 0.0 Basophils # 0.0 Nucleated Red 0.0 Blood Cells # Phosphorus Level 3.9 Magnesium Level 2.0 Sodium Level 139 Potassium Level 4.1 Chloride Level 105 Carbon Dioxide 26 Level Anion Gap 8 Blood Urea 44 #H Nitrogen Creatinine 4.32 H Est Glomerular Filtrat Rate mL/min Glucose Level 144 Calcium Level 7.8 L Total Bilirubin 0.9 Direct Bilirubin 0.40 #H Indirect 0.5 Bilirubin Aspartate Amino 45 Transf (AST/SGOT) Alanine 38 Aminotransferase (ALT/SGPT) Alkaline 69 Phosphatase Total Protein 5.0 L Albumin 2.2 L Globulin 2.80 Albumin/Globulin 0.78 Ratio Bedside Glucose 154 Test 04/10/19 13:05 Bedside Glucose 122 Home Meds Reported Medications Docusate Sodium* (Docusate Sodium*) 100 Mg Capsule, 100 MG PO BID, #60 CAP 04/01/19 Metoprolol Succinate* (Toprol XL*) 25 Mg Tab.sr.24h, 25 MG PO DAILY, #30 TAB 04/01/19 Aspirin* (Aspirin* EC) 81 Mg Tablet.dr, 81 MG PO DAILY, TAB 04/01/19 Fenofibrate, Micronized (Fenofibrate) 134 Mg Capsule, 134 MG PO DAILY, CAP 04/01/19 Sevelamer Carbonate* (Renvela*) 800 Mg Tablet, 1.6 GM PO BID, TAB 04/01/19 Amiodarone Hcl* (Amiodarone Hcl*) 200 Mg Tablet, 200 MG PO DAILY, #30 TAB TAKE Q ,,SAT WITH DIALYSIS 04/01/19 Montelukast Sodium* (Montelukast Sodium*) 10 Mg Tablet, 10 MG PO QHS, #30 TAB 04/01/19 [Nephro-Elieser] No Conflict Check, 1 TAB PO DAILY 04/01/19 Sacubitril/Valsartan (Entresto 24 mg-26 mg Tablet) 1 Each Tablet, 1 EACH PO BID, TAB 04/01/19 Midodrine* (Midodrine*) 5 Mg Tablet, 5 MG PO DAILY, TAB 04/01/19 Furosemide* (Furosemide*) 40 Mg Tablet, 40 MG PO DAILY, TAB 04/01/19 Atorvastatin Calcium* (Atorvastatin Calcium*) 20 Mg Tablet, 20 MG PO QHS, #30 TAB 04/01/19 Medications Current Medications Amiodarone HCl (Cordarone) 200 mg DAILY PO Last administered on 04/10/19at 15:5 1; Admin Dose 200 MG; Start 04/02/19 at 09:00 Aspirin (Halfprin) 81 mg DAILY PO Last administered on 04/09/19 15:21; Admin Dose 81 MG; Start 04/02/19 at 09:00 Atorvastatin Calcium (Lipitor) 20 mg QHS PO Last administered on 04/08/19 21:26; Admin Dose 20 MG; Start 04/01/19 at 21:00 Docusate Sodium (Colace) 100 mg BID PO Last administered on 04/09/19 15:21; Admin Dose 100 MG; Start 04/01/19 at 21:00 Montelukast Sodium (Singulair) 10 mg QHS PO Last administered on 04/08/19 21:26; Admin Dose 10 MG; Start 04/01/19 at 21:00 Sevelamer Carbonate (Renvela) 1.6 gm BID WITH MEALS PO Last administered on 04/09/19 17:24; Admin Dose 1.6 GM; Start 04/01/19 at 21:00 Albuterol/ Ipratropium (Duoneb) 3 ml Q2H RESP THERAPY PRN NEB SHORTNESS OF BREATH Last administered on 04/09/19at 21:01; Admin Dose 3 ML; Start 04/01/19 at 21:00 Zolpidem Tartrate (Ambien) 5 mg QHS PRN PO INSOMNIA Last administered on 04/05/19 22:19; Admin Dose 5 MG; Start 04/01/19 at 21:00 Norepinephrine 250 ml @ 1.875 mls/ hr TITRATE IV Last administered on 04/10/19 13:25; Admin Dose 13.125 MLS/HR; Start 04/02/19 at 02:30 IV Flush (NS 10 ml) 10 ml PRN PRN IV IV PROTOCOL; Start 04/03/19 at 17:00 Epoetin Jatinder-epbx (Retacrit (Esrd)) 10,000 unit AFTER EACH DIALYSIS SC Last administered on 04/10/19 15:55; Admin Dose 10,000 UNIT; Start 04/04/19 at 16:00 Miscellaneous Information 1 ea NOTE XX ; Start 04/05/19 at 11:30 Glucose (Glutose) 15 gm Q15M PRN PO DECREASED GLUCOSE; Start 04/05/19 at 11:30 Glucose (Glutose) 22.5 gm Q15M PRN PO DECREASED GLUCOSE; Start 04/05/19 at 11:30 Dextrose (D50w Syringe) 25 ml Q15M PRN IV DECREASED GLUCOSE; Start 04/05/19 at 11:30 Dextrose (D50w Syringe) 50 ml Q15M PRN IV DECREASED GLUCOSE; Start 04/05/19 at 11:30 Glucagon (Glucagen) 1 mg Q15M PRN IM DECREASED GLUCOSE; Start 04/05/19 at 11:30 Glucose (Glutose) 15 gm Q15M PRN BUCCAL DECREASED GLUCOSE; Start 04/05/19 at 11:30 Diagnostic Test (Pha) (Accu-Chek) 1 ea 02 XX Last administered on 04/06/19at 01:17; Admin Dose 1 EA; Start 04/06/19 at 02:00 Insulin Aspart (Novolog Insulin Pen) NOVOLOG *MILD* ALGORITHM WITH MEALS B EDTIME SC Last administered on 04/09/19at 20:52; Admin Dose 1 UNIT; Start 04/05/19 at 17:35 Insulin Glargine (Lantus) 20 units DAILY@2000 SC Last administered on 04/09/19at 19:57; Admin Dose 20 UNITS; Start 04/06/19 at 20:00 Ondansetron HCl (Zofran Inj) 4 mg Q6H PRN IV NAUSEA AND/OR VOMITING; Start 04/07/19 at 17:00 Meropenem/Sodium Chloride 50 ml @ 100 mls/hr Q24H IVPB Last administered on 04/10/19at 15:52; Admin Dose 100 MLS/HR; Start 04/08/19 at 14:00 Midodrine (Proamatine) 5 mg TID@09,13,17 PO Last administered on 04/09/19at 17:24; Admin Dose 5 MG; Start 04/08/19 at 09:00 Vancomycin HCl (Vanco Iv Per Pharmacy) VANCOMYCIN PER PHARMACY PER PROTOCOL XX ; Start 04/09/19 at 11:30 Miscellaneous Information (*Rx Drug Level Order Reminder*) VANCO RANDOM 0500 ONCE XX ; Start 04/11/19 at 05:00; Stop 04/11/19 at 05:01 Assessment/Plan Hospital Course (Demo Recall) Mildly abnormal troponin secondary to sepsis renal failure etc. Sepsis/pneumonia GNR bacteremia Pneumonia History of hepatocellular cancer Renal failure dialysis dependent History of arrhythmia probably sick sinus syndrome versus heart block status post permanent pacemaker Encephalopathy Paroxysmal atrial fibrillation Recommendations: aspirin as long as ok with GI and no active bleeding is noted Antibiotic management as per internal medicine and consultants Continue to be hemodialysis as tolerated Unable to tolerate beta-damian due to his low blood pressure Milronone would be continued levophed as needed f/u GI consultation rec Pacemaker card reviewed. pacemaker is an MRI compatible and MRI can be done . need to call [employer] rep to change the pacemaker setting right before and after the MRCP. PLEASE CONTACT [employer] rep (Rubio at [phone]) to arrange for setting change Thank you for this referral. We will continue to follow along with you as needed over the weekend JOSE D SOLOMON MD [facility] JOSE D SOLOMON MD Apr 10, 2019 18:46
[2019-04-10] MEDS: MONTELUKAST 10 MG TAB PO SCH (20:24)
[2019-04-10] MEDS: ATORVASTATIN 20 MG TAB PO SCH (20:24)
[2019-04-10] MEDS: INSULIN GLARGINE [LANTus] (100 UNITS/ML) SYG SC SCH (20:25)
[2019-04-11] VITALS (92 sets, daily range): BP systolic 64–140; BP diastolic 33–73; PULSE 79–101; RESP 14–47
[2019-04-11] MEDS: ACCU-CHEK XX SCH (01:53)
[2019-04-11] MEDS: NORepinephrine 8MG/250 ML (PMX 250 ML IV SCH (07:04)
[2019-04-11] MEDS: INSULIN ASPART [NOVOLOG] 3 ML PEN SC SCH ×4 (07:35→21:00)
[2019-04-11] MEDS: SEVELAMER CARBONATE 0.8 GM PKT PO SCH ×2 (07:35→16:52)
--- NOTE | 2019-04-11 08:31 | PN ---
DATE: 04/11/2019 SUBJECTIVE: The patient remains critically ill. The patient is weaned off pressor support. No othe r acute events noted. No hemoptysis, hematemesis, or hematochezia. OBJECTIVE: VITAL SIGNS: Blood pressure is 95/67, respirations 19, pulse 97, temperature 98.6. HEENT: Head is normocephalic. NECK: Supple. HEART: Regular rate. LUNGS: Show diminished breath sounds at the base. ABDOMEN: Soft, nontender to palpation without rebound or guarding. EXTREMITIES: Negative for clubbing, cyanosis, no edema. DERMATOLOGIC: No rashes. MUSCULOSKELETAL: No joint effusion. NEUROLOGIC: No change in exam. MEDICATIONS: Reviewed. LABORATORY DATA: Reviewed. IMAGING STUDIES: Reviewed. ASSESSMENT AND PLAN: 1. Septic shock. Etiology is secondary to bacteremia, gram-negative rods. Underlying source is lik shara intra-abdominal. The patient is being weaned off pressor support. Continue antibiotic therapy. Followup with Infectious Disease. 2. 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 The patie nt's tumor markers are markedly elevated, CA 19-9 is high. Appreciate oncology, GI evaluation. The patient is pending possible ERCP when clinically stable for a tissue diagnosis. The patient may also require CT of chest, abdomen and pelvis with IV contrast. We will continue to monitor. 3. Anemia. Continue to monitor hemoglobin and hematocrit levels. Continue Epogen as needed. 4. Mineral bone disorder. Continue calcium and phosphorus levels. 5. Hematochezia. Continue to monitor hemoglobin and hematocrit levels. 6. End-stage renal disease. The patient had hemodialysis yesterday, tolerated well. Plan is for di alysis tomorrow. 7. Elevated troponin, non-ST elevation myocardial infarction type 2. Continue to monitor. Follow u p with Cardiology. 8. Diabetes. Continue current insulin regimen. 9. Nutrition. The patient is currently n.p.o. We will follow up with GI. The patient can have NG tube to initiate tube feedings or to start TPN. 10. Arrhythmia with pacemaker. Continue to monitor. Follow up with Cardiology. 11. Volume overload. Continue ultrafiltration with dialysis. 12. Acute encephalopathy, etiology is toxic metabolic. 13. Decubitus wound. Continue local wound care. Dictated By: ADA MORENO/CORNELIA Conf#: [id number] [facility]#: [id number] CC: DYLAN GREENE MD; TRAE TRAVIS MD;*[facility]*
[2019-04-11] MEDS: DOCUSATE SODIUM 100 MG CAP PO SCH ×2 (08:59→21:00)
[2019-04-11] MEDS: ASPIRIN (EC) 81 MG TAB PO SCH (08:59)
[2019-04-11] MEDS: BALSAM PERU/CASTOR OIL 60 GM TUBE TOP SCH ×2 (11:04→21:55)
[2019-04-11] MEDS: AMIODARONE 200 MG TAB PO SCH (11:38)
[2019-04-11] MEDS: MIDODRINE 2.5 MG TAB PO SCH ×3 (11:38→17:54)
--- NOTE | 2019-04-11 12:11 | CONS ---
Assessment/Plan Assessment/Plan Hospital Course (Demo Recall) 83 yo with multiple medical problems admitted for hypotension and ascites, CT showed peritoneal carcinomatosis, there is also severe dilatation of left intrahepatic biliary ducts. Ca 19-9 is very elevated, AFP not elevated - he had paracentesis at outside hospital, if cytology was performed on that it would be helpful to have that information. My office has requested that from [place] [facility] -at this time he is in ICU and critical. remains on pressors -as part of w/u when he is more stable will recommend CT CAP with contrast -has been seen by GI, Dr Schuster. AFP is not elevated so less likely to be hepatocellular ca and more likely to be cholangiocarcinoma -cholangiocarcinoma carries poor prognosis. once pt is more stable, if at that time family and pt want to pursue diagnosis he would likely need ERCP and biopsy -await til we have the pathology results and he is more stable before making treatment recommendations -would not start TPN at this time Consultation Date/Type/Reason Admit Date/Time Apr 01, 2019 at 17:43 Initial Consult Date 04/03/19 Type of Consult oncology Reason for Consultation liver cancer Requesting Provider: ADA RANGEL DO Date/Time of Note DATE: 04/11/19 TIME: 12:08 24 HR Interval Summary Free Text/Dictation pt remains on pressor support. failed swallow eval Exam/Review of Systems Exam Vitals Vital Signs Date Temp Pulse Resp B/P (MAP) Pulse Ox O2 O2 Flow FiO2 Time Delivery Rate 04/11/19 2.0 10:24 04/11/19 93 08:00 04/11/19 19 95/67 (76) 06:15 04/11/19 Nasal 06:00 Cannula 04/11/19 98.6 04:00 04/11/19 100 03:15 04/09/19 28 21:04 Intake and Output 04/10/19 04/10/19 04/11/19 1515:00 23:00 07:00 IntakeIntake Total 497.500 ml 127 ml 68.750 ml OutputOutput Total 1400 ml BalanceBalance -902.500 ml 127 ml 68.750 ml Constitutional: distress, frail Psych: anxiety, depression Head: normocephalic Eyes: nl conjunctiva ENMT: nl external ears & nose Neck: supple Respiratory: clear to auscultation Cardiovascular: regular rate and rhythm Gastrointestinal: soft Musculoskeletal: nl extremities to inspection Results Result Diagram: 04/11/19 0330 04/11/19 0330 Results 24hrs Laboratory Tests Test 04/10/19 13:05 04/10/19 20:17 04/11/19 01:53 04/11/19 03:30 Bedside Glucose 122 151 94 White Blood Count 15.2 H Red Blood Count 3.00 L Hemoglobin 9.1 L Hematocrit 30.0 L Mean Corpuscular 100.0 Volume Mean Corpuscular 30.3 Hemoglobin Mean Corpuscular 30.3 L Hemoglobin Concent Red Cell 17.2 H Distribution Width Platelet Count 236 # Mean Platelet Volume 10.7 H Immature 1.400 H Granulocytes % Neutrophils % 78.0 H Lymphocytes % 9.7 L Monocytes % 10.4 Eosinophils % 0.2 Basophils % 0.3 Nucleated Red Blood 0.0 Cells % Immature 0.210 H Granulocytes # Neutrophils # 11.9 H Lymphocytes # 1.5 Monocytes # 1.6 H Eosinophils # 0.0 Basophils # 0.1 Nucleated Red Blood 0.0 Cells # Sodium Level 141 Potassium Level 3.9 Chloride Level 103 Carbon Dioxide Level 28 Anion Gap 10 Blood Urea Nitrogen 28 #H Creatinine 3.43 H Est Glomerular Filtrat Rate mL/min Glucose Level 88 # Calcium Level 7.8 L Phosphorus Level 3.8 Magnesium Level 2.0 Random Vancomycin 18.6 Level Test 04/11/19 03:44 04/11/19 11:44 Bedside Glucose 92 63 L Medications Medication Current Medications Amiodarone HCl (Cordarone) 200 mg DAILY PO Last administered on 04/11/19at 11: 38; Admin Dose 200 MG; Start 04/02/19 at 09:00 Aspirin (Halfprin) 81 mg DAILY PO Last administered on 04/09/19at 15:21; Admin Dose 81 MG; Start 04/02/19 at 09:00 Atorvastatin Calcium (Lipitor) 20 mg QHS PO Last administered on 04/08/19at 21:26; Admin Dose 20 MG; Start 04/01/19 at 21:00 Docusate Sodium (Colace) 100 mg BID PO Last administered on 04/09/19 15:21; Admin Dose 100 MG; Start 04/01/19 at 21:00 Montelukast Sodium (Singulair) 10 mg QHS PO Last administered on 04/08/19at 21:26; Admin Dose 10 MG; Start 04/01/19 at 21:00 Sevelamer Carbonate (Renvela) 1.6 gm BID WITH MEALS PO Last administered on 04/09/19 17:24; Admin Dose 1.6 GM; Start 04/01/19 at 21:00 Albuterol/ Ipratropium (Duoneb) 3 ml Q2H RESP THERAPY PRN NEB SHORTNESS OF BREATH Last administered on 04/09/19 21:01; Admin Dose 3 ML; Start 04/01/19 at 21:00 Zolpidem Tartrate (Ambien) 5 mg QHS PRN PO INSOMNIA Last administered on 04/05/19 22:19; Admin Dose 5 MG; Start 04/01/19 at 21:00 Norepinephrine 250 ml @ 1.875 mls/ hr TITRATE IV Last administered on 04/11/19 07:04; Admin Dose 9.375 MLS/HR; Start 04/02/19 at 02:30 IV Flush (NS 10 ml) 10 ml PRN PRN IV IV PROTOCOL; Start 04/03/19 at 17:00 Epoetin Jatinder-epbx (Retacrit (Esrd)) 10,000 unit AFTER EACH DIALYSIS SC Last administered on 04/10/19at 15:55; Admin Dose 10,000 UNIT; Start 04/04/19 at 16:00 Miscellaneous Information 1 ea NOTE XX ; Start 04/05/19 at 11:30 Glucose (Glutose) 15 gm Q15M PRN PO DECREASED GLUCOSE; Start 04/05/19 at 11:30 Glucose (Glutose) 22.5 gm Q15M PRN PO DECREASED GLUCOSE; Start 04/05/19 at 11:30 Dextrose (D50w Syringe) 25 ml Q15M PRN IV DECREASED GLUCOSE Last administered on 04/11/19at 11:46; Admin Dose 25 ML; Start 04/05/19 at 11:30 Dextrose (D50w Syringe) 50 ml Q15M PRN IV DECREASED GLUCOSE; Start 04/05/19 at 11:30 Glucagon (Glucagen) 1 mg Q15M PRN IM DECREASED GLUCOSE; Start 04/05/19 at 11:30 Glucose (Glutose) 15 gm Q15M PRN BUCCAL DECREASED GLUCOSE; Start 04/05/19 at 11:30 Diagnostic Test (Pha) (Accu-Chek) 1 ea 02 XX Last administered on 04/06/19at 01:17; Admin Dose 1 EA; Start 04/06/19 at 02:00 Insulin Aspart (Novolog Insulin Pen) NOVOLOG *MILD* ALGORITHM WITH MEALS BEDTIME SC Last administered on 04/10/19at 20:26; Admin Dose 1 UNIT; Start 04/05/19 at 17:35 Insulin Glargine (Lantus) 20 units DAILY@2000 SC Last administered on 04/10/19at 20:25; Admin Dose 20 UNITS; Start 04/06/19 at 20:00 Ondansetron HCl (Zofran Inj) 4 mg Q6H PRN IV NAUSEA AND/OR VOMITING; Start 04/07/19 at 17:00 Meropenem/Sodium Chloride 50 ml @ 100 mls/hr Q24H IVPB Last administered on 04/10/19at 15:52; Admin Dose 100 MLS/HR; Start 04/08/19 at 14:00 Vancomycin HCl (Vanco Iv Per Pharmacy) VANCOMYCIN PER PHARMACY PER PROTOCOL XX ; Start 04/09/19 at 11:30 Midodrine (Proamatine) 5 mg TID@0900,1300,1700 PO Last administered on 04/11/19 at 11:38; Admin Dose 5 MG; Start 04/11/19 at 11:00 GEORGES ROBLEDO M.D. Apr 11, 2019 12:11
--- NOTE | 2019-04-11 12:33 | CONS ---
Consult Date/Type/Reason Admit Date/Time Apr 01, 2019 at 17:43 Initial Consult Date 04/03/19 Type of Consult Pulmonary Requesting Provider: ADA RANGEL DO Date/Time of Note DATE: 04/11/19 TIME: 12:25 Subjective Patient continues vasopressor support. Was more alert this morning with family at bedside. Objective Vital Signs Date Temp Pulse Resp B/P (MAP) Pulse Ox O2 O2 Flow FiO2 Time Delivery Rate 04/11/19 2.0 10:24 04/11/19 93 08:00 04/11/19 95/67 (76) 06:15 04/11/19 Nasal 06:00 Cannula 04/11/19 98.6 04:00 04/11/19 100 03:15 04/09/19 28 21:04 Intake and Output 04/10/19 04/10/19 04/11/19 1515:00 23:00 07:00 IntakeIntake Total 497.500 ml 127 ml 68.750 ml OutputOutput Total 1400 ml BalanceBalance -902.500 ml 127 ml 68.750 ml Exam GENERAL: Elderly appearing gentleman on facemask O2 no respiratory distress continues Levophed VITAL SIGNS: per chart NECK: Supple. No JVD or lymphadenopathy. CARDIAC EXAM: S1, S2. No added sounds or murmurs. CHEST: clear bilaterally, No added sounds, rales or wheezes ABDOMEN: Soft, nontender. No guarding or rebound. EXTREMITIES: No cyanosis, clubbing or edema. NEUROLOGIC: Generalized weakness. No focal deficits. Vent Setting Fraction of Inspired Oxygen pe: 28 Results/Medications Result Diagram: 04/11/19 0330 04/11/19 0330 Results 24 hrs Laboratory Tests Test 04/10/19 13:05 04/10/19 20:17 04/11/19 01:53 04/11/19 03:30 Bedside Glucose 122 151 94 White Blood Count 15.2 H Red Blood Count 3.00 L Hemoglobin 9.1 L Hematocrit 30.0 L Mean Corpuscular 100.0 Volume Mean Corpuscular 30.3 Hemoglobin Mean Corpuscular 30.3 L Hemoglobin Concent Red Cell 17.2 H Distribution Width Platelet Count 236 # Mean Platelet Volume 10.7 H Immature 1.400 H Granulocytes % Neutrophils % 78.0 H Lymphocytes % 9.7 L Monocytes % 10.4 Eosinophils % 0.2 Basophils % 0.3 Nucleated Red Blood 0.0 Cells % Immature 0.210 H Granulocytes # Neutrophils # 11.9 H Lymphocytes # 1.5 Monocytes # 1.6 H Eosinophils # 0.0 Basophils # 0.1 Nucleated Red Blood 0.0 Cells # Sodium Level 141 Potassium Level 3.9 Chloride Level 103 Carbon Dioxide Level 28 Anion Gap 10 Blood Urea Nitrogen 28 #H Creatinine 3.43 H Est Glomerular Filtrat Rate mL/min Glucose Level 88 # Calcium Level 7.8 L Phosphorus Level 3.8 Magnesium Level 2.0 Random Vancomycin 18.6 Level Test 04/11/19 03:44 04/11/19 11:44 04/11/19 12:08 Bedside Glucose 92 63 L 93 Medications Current Medications Amiodarone HCl (Cordarone) 200 mg DAILY PO Last administered on 04/11/19 11:38; Admin Dose 200 MG; Start 04/02/19 at 09:00 Aspirin (Halfprin) 81 mg DAILY PO Last administered on 04/09/19 15:21; Admin Dose 81 MG; Start 04/02/19 at 09:00 Atorvastatin Calcium (Lipitor) 20 mg QHS PO Last administered on 04/08/19 21:26; Admin Dose 20 MG; Start 04/01/19 at 21:00 Docusate Sodium (Colace) 100 mg BID PO Last administered on 04/09/19 15:21; Admin Dose 100 MG; Start 04/01/19 at 21:00 Montelukast Sodium (Singulair) 10 mg QHS PO Last administered on 04/08/19 21:26; Admin Dose 10 MG; Start 04/01/19 at 21:00 Sevelamer Carbonate (Renvela) 1.6 gm BID WITH MEALS PO Last administered on 04/09/19 17:24; Admin Dose 1.6 GM; Start 04/01/19 at 21:00 Albuterol/ Ipratropium (Duoneb) 3 ml Q2H RESP THERAPY PRN NEB SHORTNESS OF B REATH Last administered on 04/09/19 21:01; Admin Dose 3 ML; Start 04/01/19 at 21:00 Zolpidem Tartrate (Ambien) 5 mg QHS PRN PO INSOMNIA Last administered on 04/05/19 22:19; Admin Dose 5 MG; Start 04/01/19 at 21:00 Norepinephrine 250 ml @ 1.875 mls/ hr TITRATE IV Last administered on 04/11/19at 07:04; Admin Dose 9.375 MLS/HR; Start 04/02/19 at 02:30 IV Flush (NS 10 ml) 10 ml PRN PRN IV IV PROTOCOL; Start 04/03/19 at 17:00 Epoetin Jatinder-epbx (Retacrit (Esrd)) 10,000 unit AFTER EACH DIALYSIS SC Last administered on 04/10/19at 15:55; Admin Dose 10,000 UNIT; Start 04/04/19 at 16:00 Miscellaneous Information 1 ea NOTE XX ; Start 04/05/19 at 11:30 Glucose (Glutose) 15 gm Q15M PRN PO DECREASED GLUCOSE; Start 04/05/19 at 11:30 Glucose (Glutose) 22.5 gm Q15M PRN PO DECREASED GLUCOSE; Start 04/05/19 at 11:30 Dextrose (D50w Syringe) 25 ml Q15M PRN IV DECREASED GLUCOSE Last administered on 04/11/19at 11:46; Admin Dose 25 ML; Start 04/05/19 at 11:30 Dextrose (D50w Syringe) 50 ml Q15M PRN IV DECREASED GLUCOSE; Start 04/05/19 at 11:30 Glucagon (Glucagen) 1 mg Q15M PRN IM DECREASED GLUCOSE; Start 04/05/19 at 11:30 Glucose (Glutose) 15 gm Q15M PRN BUCCAL DECREASED GLUCOSE; Start 04/05/19 at 11:30 Diagnostic Test (Pha) (Accu-Chek) 1 ea 02 XX Last administered on 04/06/19at 01:17; Admin Dose 1 EA; Start 04/06/19 at 02:00 Insulin Aspart (Novolog Insulin Pen) NOVOLOG *MILD* ALGORITHM WITH MEALS BEDTIME SC Last administered on 04/10/19 20:26; Admin Dose 1 UNIT; Start 04/05/19 at 17:35 Insulin Glargine (Lantus) 20 units DAILY@2000 SC Last administered on 04/10/19 20:25; Admin Dose 20 UNITS; Start 04/06/19 at 20:00 Ondansetron HCl (Zofran Inj) 4 mg Q6H PRN IV NAUSEA AND/OR VOMITING; Start 04/07/19 at 17:00 Meropenem/Sodium Chloride 50 ml @ 100 mls/hr Q24H IVPB Last administered on 04/10/19at 15:52; Admin Dose 100 MLS/HR; Start 04/08/19 at 14:00 Vancomycin HCl (Vanco Iv Per Pharmacy) VANCOMYCIN PER PHARMACY PER PROTOCOL XX ; Start 04/09/19 at 11:30 Midodrine (Proamatine) 5 mg TID@0900,1300,1700 PO Last administered on 04/11/19at 11:38; Admin Dose 5 MG; Start 04/11/19 at 11:00 Assessment/Plan Hospital Course (Demo Recall) Assessment 1. Septic shock requiring vasopressor support blood cultures positive for Bacteroides 2. History of end-stage renal failure on hemodialysis 3. History of hepatocellular CA 4. History of arrhythmia with pacemaker 5. Diabetes mellitus 6. Dysphagia remains risk of aspiration. 7. Encephalopathy toxic metabolic Plan 1. Continue supplemental O2 as needed 2. Hemodialysis as tolerated. 3. Continue antibiotics per ID 4. Aspiration precautions 5. Titrate vasopressors to keep map greater than 65, check cortisol level. 6. Speech therapy recommendations Critical care time 40 minutes TRAE TRAVIS MD, [facility] Apr 11, 2019 12:33
--- NOTE | 2019-04-11 12:51 | CONS ---
Assessment/Plan Assessment/Plan Hospital Course (Demo Recall) 83 yo male 1. Severe sepsis. -Bacteremia with possible intra-abdominal etiology 2. Ascites. 3. Pneumonia. 4. Hepatocellular cancer with carcinomatosis. -CA 199 1000 and alpha-fetoprotein was within normal limit. This cancer cell marker are more in favor of cholangiocarcinoma rather than hepatocellular cancer. 5. Diabetes mellitus. 6. Atrial fibrillation. 7. Congestive heart failure. 8. Dilated left-sided biliary system. 9. Anemia. -positive fob, low iron, tibc, %sat, high ferritin -when stable can consider EGD/colon. Plan -Failed swallow eval this am, family and pt refusing NGT. -Pending ascites fluid cytology results from [facility] -Pt needs ERCP but deemed too unstable per anesthesiology. No cardiac clearance given yet. Still requiring pressor support Pt examined and plan of care d/w Dr Schuster Consultation Date/Type/Reason Admit Date/Time Apr 01, 2019 at 17:43 Initial Consult Date 04/03/19 Requesting Provider: ADA RANGEL DO Date/Time of Note DATE: 04/11/19 TIME: 12:35 24 HR Interval Summary Free Text/Dictation Pt continues with pressor support. Abd tenderness. Lethargic and mild SOB. Exam/Review of Systems Exam Vitals Vital Signs Date Temp Pulse Resp B/P (MAP) Pulse Ox O2 O2 Flow FiO2 Time Delivery Rate 04/11/19 2.0 10:24 04/11/19 93 08:00 04/11/19 19 95/67 (76) 06:15 04/11/19 Nasal 06:00 Cannula 04/11/19 98.6 04:00 04/11/19 100 03:15 04/09/19 28 21:04 Intake and Output 04/10/19 04/10/19 04/11/19 1515:00 23:00 07:00 IntakeIntake Total 497.500 ml 127 ml 68.750 ml OutputOutput Total 1400 ml BalanceBalance -902.500 ml 127 ml 68.750 ml Constitutional: alert Psych: no complaints Head: normocephalic Eyes: PERRL Respiratory: labored breathing Cardiovascular: regular rate and rhythm Gastrointestinal: soft, tender Neurological: lethargic Results Result Diagram: 04/11/19 0330 04/11/19 0330 Results 24hrs Laboratory Tests Test 04/10/19 13:05 04/10/19 20:17 04/11/19 01:53 04/11/19 03:30 Bedside Glucose 122 151 94 White Blood Count 15.2 H Red Blood Count 3.00 L Hemoglobin 9.1 L Hematocrit 30.0 L Mean Corpuscular 100.0 Volume Mean Corpuscular 30.3 Hemoglobin Mean Corpuscular 30.3 L Hemoglobin Concent Red Cell 17.2 H Distribution Width Platelet Count 236 # Mean Platelet Volume 10.7 H Immature 1.400 H Granulocytes % Neutrophils % 78.0 H Lymphocytes % 9.7 L Monocytes % 10.4 Eosinophils % 0.2 Basophils % 0.3 Nucleated Red Blood 0.0 Cells % Immature 0.210 H Granulocytes # Neutrophils # 11.9 H Lymphocytes # 1.5 Monocytes # 1.6 H Eosinophils # 0.0 Basophils # 0.1 Nucleated Red Blood 0.0 Cells # Sodium Level 141 Potassium Level 3.9 Chloride Level 103 Carbon Dioxide Level 28 Anion Gap 10 Blood Urea Nitrogen 28 #H Creatinine 3.43 H Est Glomerular Filtrat Rate mL/min Glucose Level 88 # Calcium Level 7.8 L Phosphorus Level 3.8 Magnesium Level 2.0 Random Vancomycin 18.6 Level Test 04/11/19 03:44 04/11/19 11:44 04/11/19 12:08 Bedside Glucose 92 63 L 93 Medications Medication Current Medications Amiodarone HCl (Cordarone) 200 mg DAILY PO Last administered on 04/11/19at 11:38; Admin Dose 200 MG; Start 04/02/19 at 09:00 Aspirin (Halfprin) 81 mg DAILY PO Last administered on 04/09/19at 15:21; Admin D ose 81 MG; Start 04/02/19 at 09:00 Atorvastatin Calcium (Lipitor) 20 mg QHS PO Last administered on 04/08/19 21:26; Admin Dose 20 MG; Start 04/01/19 at 21:00 Docusate Sodium (Colace) 100 mg BID PO Last administered on 04/09/19 15:21; Admin Dose 100 MG; Start 04/01/19 at 21:00 Montelukast Sodium (Singulair) 10 mg QHS PO Last administered on 04/08/19at 21:26; Admin Dose 10 MG; Start 04/01/19 at 21:00 Sevelamer Carbonate (Renvela) 1.6 gm BID WITH MEALS PO Last administered on 04/09/19 17:24; Admin Dose 1.6 GM; Start 04/01/19 at 21:00 Albuterol/ Ipratropium (Duoneb) 3 ml Q2H RESP THERAPY PRN NEB SHORTNESS OF BREATH Last administered on 04/09/19 21:01; Admin Dose 3 ML; Start 04/01/19 at 21:00 Zolpidem Tartrate (Ambien) 5 mg QHS PRN PO INSOMNIA Last administered on 04/05/19 22:19; Admin Dose 5 MG; Start 04/01/19 at 21:00 Norepinephrine 250 ml @ 1.875 mls/ hr TITRATE IV Last administered on 04/11/19 07:04; Admin Dose 9.375 MLS/HR; Start 04/02/19 at 02:30 IV Flush (NS 10 ml) 10 ml PRN PRN IV IV PROTOCOL; Start 04/03/19 at 17:00 Epoetin Jatinder-epbx (Retacrit (Esrd)) 10,000 unit AFTER EACH DIALYSIS SC Last administered on 04/10/19 15:55; Admin Dose 10,000 UNIT; Start 04/04/19 at 16:00 Miscellaneous Information 1 ea NOTE XX ; Start 04/05/19 at 11:30 Glucose (Glutose) 15 gm Q15M PRN PO DECREASED GLUCOSE; Start 04/05/19 at 11:30 Glucose (Glutose) 22.5 gm Q15M PRN PO DECREASED GLUCOSE; Start 04/05/19 at 11:30 Dextrose (D50w Syringe) 25 ml Q15M PRN IV DECREASED GLUCOSE Last administered on 04/11/19at 11:46; Admin Dose 25 ML; Start 04/05/19 at 11:30 Dextrose (D50w Syringe) 50 ml Q15M PRN IV DECREASED GLUCOSE; Start 04/05/19 at 11:30 Glucagon (Glucagen) 1 mg Q15M PRN IM DECREASED GLUCOSE; Start 04/05/19 at 11:30 Glucose (Glutose) 15 gm Q15M PRN BUCCAL DECREASED GLUCOSE; Start 04/05/19 at 11:30 Diagnostic Test (Pha) (Accu-Chek) 1 ea 02 XX Last administered on 04/06/19at 01:17; Admin Dose 1 EA; Start 04/06/19 at 02:00 Insulin Aspart (Novolog Insulin Pen) NOVOLOG *MILD* ALGORITHM WITH MEALS BEDTIME SC Last administered on 04/10/19 20:26; Admin Dose 1 UNIT; Start 04/05/19 at 17:35 Insulin Glargine (Lantus) 20 units DAILY@2000 SC Last administered on 04/10/19at 20:25; Admin Dose 20 UNITS; Start 04/06/19 at 20:00 Ondansetron HCl (Zofran Inj) 4 mg Q6H PRN IV NAUSEA AND/OR VOMITING; Start 04/07/19 at 17:00 Meropenem/Sodium Chloride 50 ml @ 100 mls/hr Q24H IVPB Last administered on 04/10/19at 15:52; Admin Dose 100 MLS/HR; Start 04/08/19 at 14:00 Vancomycin HCl (Vanco Iv Per Pharmacy) VANCOMYCIN PER PHARMACY PER PROTOCOL XX ; Start 04/09/19 at 11:30 Midodrine (Proamatine) 5 mg TID@0900,1300,1700 PO Last administered on 04/11/19at 11:38; Admin Dose 5 MG; Start 04/11/19 at 11:00 Dextrose 1,000 ml @ 50 mls/hr Q20H IV ; Start 04/11/19 at 12:30 ARIANA GUERRA Apr 11, 2019 12:50
[2019-04-11] MEDS: DEXTROSE 5% 1,000 ML IV SCH (13:06)
--- NOTE | 2019-04-11 13:33 | CONS ---
Assessment/Plan Assessment/Plan Hospital Course (Demo Recall) 22 yo with large anterior mediastinal mass, CT chest angio: A large heterogeneous anterior mediastinal mass 13.5 x 15.8 x 9.3 cm in size. A 7 mm nodule in the right lower lobe . Multiple enlarged mediastinal and hilar lymph nodes are seen with the largest seen in the right hilum measuring approximately 1.6 x 8 1.7 cm in size. 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 IF OLDER THAN 3-4 MOS WE WILL DO IN HOSPITAL -in preparation for chemo: 2 D ECHO, mediport and PFTs. port in place. ECHO EF wnl -given how large this mass is and concern for airway will recommend chemo in hospital, await final path before ordering chemo. ONE CAVEAT IS IF THIS IS NON SEMINOMATOUS GERM CELL TUMOR CHEMO THAT IS RECOMMENDED CARRIES RISK OF STERILITY SO HE WILL NEED SPERM BANKING AND HE HAS TO DO THAT AB OUTPT #leukocytosis and thrombocytosis suspect this is most likely reactive due to underlying malignancy check iron studies and ferritin Consultation Date/Type/Reason Admit Date/Time Apr 01, 2019 at 17:43 Initial Consult Date 04/03/19 Type of Consult oncology Reason for Consultation liver cancer Requesting Provider: ADA RANGEL DO Date/Time of Note DATE: 04/11/19 TIME: 10:52 24 HR Interval Summary Free Text/Dictation pt remains on pressors. cannot eat, has failed swallow eval Exam/Review of Systems Exam Vitals Vital Signs Date Temp Pulse Resp B/P (MAP) Pulse Ox O2 O2 Flow FiO2 Time Delivery Rate 04/11/19 2.0 10:24 04/11/19 93 08:00 04/11/19 95/67 (76) 06:15 04/11/19 Nasal 06:00 Cannula 04/11/19 98.6 04:00 04/11/19 100 03:15 04/09/19 28 21:04 Intake and Output 04/10/19 04/10/19 04/11/19 1515:00 23:00 07:00 IntakeIntake Total 497.500 ml 127 ml 68.750 ml OutputOutput Total 1400 ml BalanceBalance -902.500 ml 127 ml 68.750 ml Constitutional: frail Psych: confusion Head: normocephalic Eyes: nl conjunctiva ENMT: nl external ears & nose Neck: supple Respiratory: clear to auscultation Cardiovascular: regular rate and rhythm Gastrointestinal: soft Musculoskeletal: nl extremities to inspection Results Result Diagram: 04/11/19 0330 04/11/19 0330 Results 24hrs Laboratory Tests Test 04/10/19 13:05 04/10/19 20:17 04/11/19 01:53 04/11/19 03:30 Bedside Glucose 122 151 94 White Blood Count 15.2 H Red Blood Count 3.00 L Hemoglobin 9.1 L Hematocrit 30.0 L Mean Corpuscular 100.0 Volume Mean Corpuscular 30.3 Hemoglobin Mean Corpuscular 30.3 L Hemoglobin Concent Red Cell 17.2 H Distribution Width Platelet Count 236 # Mean Platelet Volume 10.7 H Immature 1.400 H Granulocytes % Neutrophils % 78.0 H Lymphocytes % 9.7 L Monocytes % 10.4 Eosinophils % 0.2 Basophils % 0.3 Nucleated Red Blood 0.0 Cells % Immature 0.210 H Granulocytes # Neutrophils # 11.9 H Lymphocytes # 1.5 Monocytes # 1.6 H Eosinophils # 0.0 Basophils # 0.1 Nucleated Red Blood 0.0 Cells # Sodium Level 141 Potassium Level 3.9 Chloride Level 103 Carbon Dioxide Level 28 Anion Gap 10 Blood Urea Nitrogen 28 #H Creatinine 3.43 H Est Glomerular Filtrat Rate mL/min Glucose Level 88 # Calcium Level 7.8 L Phosphorus Level 3.8 Magnesium Level 2.0 Random Vancomycin 18.6 Level Test 04/11/19 03:44 Bedside Glucose 92 Medications Medication Current Medications Amiodarone HCl (Cordarone) 200 mg DAILY PO Last administered on 04/10/19at 15:51; Admin Dose 200 MG; Start 04/02/19 at 09:00 Aspirin (Halfprin) 81 mg DAILY PO Last administered on 04/09/19at 15:21; Admin Dose 81 MG; Start 04/02/19 at 09:00 Atorvastatin Calcium (Lipitor) 20 mg QHS PO Last administered on 04/08/19 21:26; Admin Dose 20 MG; Start 04/01/19 at 21:00 Docusate Sodium (Colace) 100 mg BID PO Last administered on 04/09/19 15:21; Admin Dose 100 MG; Start 04/01/19 at 21:00 Montelukast Sodium (Singulair) 10 mg QHS PO Last administered on 04/08/19 21:26; Admin Dose 10 MG; Start 04/01/19 at 21:00 Sevelamer Carbonate (Renvela) 1.6 gm BID WITH MEALS PO Last administered on 04/09/19 17:24; Admin Dose 1.6 GM; Start 04/01/19 at 21:00 Albuterol/ Ipratropium (Duoneb) 3 ml Q2H RESP THERAPY PRN NEB SHORTNESS OF BREATH Last administered on 04/09/19at 21:01; Admin Dose 3 ML; Start 04/01/19 at 21:00 Zolpidem Tartrate (Ambien) 5 mg QHS PRN PO INSOMNIA Last administered on 04/05/19 22:19; Admin Dose 5 MG; Start 04/01/19 at 21:00 Norepinephrine 250 ml @ 1.875 mls/ hr TITRATE IV Last administered on 04/11/19at 07:04; Admin Dose 9.375 MLS/HR; Start 04/02/19 at 02:30 IV Flush (NS 10 ml) 10 ml PRN PRN IV IV PROTOCOL; Start 04/03/19 at 17:00 Epoetin Jatinder-epbx (Retacrit (Esrd)) 10,000 unit AFTER EACH DIALYSIS SC Last ad ministered on 04/10/19at 15:55; Admin Dose 10,000 UNIT; Start 04/04/19 at 16:00 Miscellaneous Information 1 ea NOTE XX ; Start 04/05/19 at 11:30 Glucose (Glutose) 15 gm Q15M PRN PO DECREASED GLUCOSE; Start 04/05/19 at 11:30 Glucose (Glutose) 22.5 gm Q15M PRN PO DECREASED GLUCOSE; Start 04/05/19 at 11:30 Dextrose (D50w Syringe) 25 ml Q15M PRN IV DECREASED GLUCOSE; Start 04/05/19 at 11:30 Dextrose (D50w Syringe) 50 ml Q15M PRN IV DECREASED GLUCOSE; Start 04/05/19 at 11:30 Glucagon (Glucagen) 1 mg Q15M PRN IM DECREASED GLUCOSE; Start 04/05/19 at 11:30 Glucose (Glutose) 15 gm Q15M PRN BUCCAL DECREASED GLUCOSE; Start 04/05/19 at 11:30 Diagnostic Test (Pha) (Accu-Chek) 1 ea 02 XX Last administered on 04/06/19at 01:17; Admin Dose 1 EA; Start 04/06/19 at 02:00 Insulin Aspart (Novolog Insulin Pen) NOVOLOG *MILD* ALGORITHM WITH MEALS BEDTIME SC Last administered on 04/10/19at 20:26; Admin Dose 1 UNIT; Start 04/05/19 at 17:35 Insulin Glargine (Lantus) 20 units DAILY@2000 SC Last administered on 04/10/19 20:25; Admin Dose 20 UNITS; Start 04/06/19 at 20:00 Ondansetron HCl (Zofran Inj) 4 mg Q6H PRN IV NAUSEA AND/OR VOMITING; Start 04/07/19 at 17:00 Meropenem/Sodium Chloride 50 ml @ 100 mls/hr Q24H IVPB Last administered on 04/10/19at 15:52; Admin Dose 100 MLS/HR; Start 04/08/19 at 14:00 Midodrine (Proamatine) 5 mg TID@09,13,17 PO Last administered on 04/09/19at 17:24; Admin Dose 5 MG; Start 04/08/19 at 09:00 Vancomycin HCl (Vanco Iv Per Pharmacy) VANCOMYCIN PER PHARMACY PER PROTOCOL XX ; Start 04/09/19 at 11:30 GEORGES ROBLEDO M.D. Apr 11, 2019 12:06
--- NOTE | 2019-04-11 14:35 | CONS ---
Consult Date/Type/Reason Admit Date/Time Apr 01, 2019 at 17:43 Initial Consult Date 04/03/19 Type of Consultation: cv Requesting Provider: ADA RANGEL DO Date/Time of Note DATE: 04/11/19 TIME: 14:34 Subjective Cardiology follow-up progress note Subjective: Discussed with the staff. Telemetry was reviewed. Patient has remained in sinus rhythm./ demand pacing Patient remains in ICU and remains on levophed drip due to hypotension No report of any chest pain or pressure Objective: General: no acute distress HEENT: NC/AT. pupils are equal. round. NECK: no stridor. CV: RRR. systolic murmur; no gallop or rubs. PULM: no wheezing or rhonchi. GI: SOFT, NT, ND, no rebound or guarding Extremity: trace B/L LE edema. no clubbing. neuro: awake Psych: calm rectal: deferred EKG shows ventricular paced rhythm Chest x-ray done 03/24/2019 shows: 1. New left-sided PICC in proximal SVC. 2. Persistent small left-sided pleural effusion with left lung base atelectasis/infiltrate. 3. Persistent patchy opacity of the right lung base. 4. Persistent cardiomegaly with mild vascular congestion CT 1. Again noted is severe dilatation of left intrahepatic biliary ducts. No gross evidence of hepatic mass is seen, though sensitivity is markedly limited without IV contrast. Findings remain concerning for obstructive mass in the central left hepatic lobe, as described in the prior CT report. 2. Findings compatible with peritoneal carcinomatosis. Moderate ascites, grossly stable. 3. Stable mild cardiomegaly. Coronary arterial and aortoiliac atherosclerotic calcifications. 4. Mild to moderate bilateral pleural effusions, grossly stable. Bibasilar atelectasis. 5. Cholelithiasis, without evidence for cholecystitis. 6. Chronic bilateral renal cortical thinning and atrophy, unchanged. Objective Vitals Vital Signs Date Temp Pulse Resp B/P (MAP) Pulse Ox O2 O2 Flow FiO2 Time Delivery Rate 04/11/19 98 12:00 04/11/19 2.0 10:24 04/11/19 95/67 (76) 06:15 04/11/19 Nasal 06:00 Cannula 04/11/19 98.6 04:00 04/11/19 100 03:15 04/09/19 28 21:04 Intake and Output 04/10/19 04/10/19 04/11/19 1515:00 23:00 07:00 IntakeIntake Total 497.500 ml 127 ml 68.750 ml OutputOutput Total 1400 ml BalanceBalance -902.500 ml 127 ml 68.750 ml Results/Medications Result Diagram: 04/11/19 0330 04/11/19 0330 Results 24 hrs Laboratory Tests Test 04/10/19 20:17 04/11/19 01:53 04/11/19 03:30 04/11/19 03:44 Bedside Glucose 151 94 92 White Blood Count 15.2 H Red Blood Count 3.00 L Hemoglobin 9.1 L Hematocrit 30.0 L Mean Corpuscular 100.0 Volume Mean Corpuscular 30.3 Hemoglobin Mean Corpuscular 30.3 L Hemoglobin Concent Red Cell 17.2 H Distribution Width Platelet Count 236 # Mean Platelet Volume 10.7 H Immature 1.400 H Granulocytes % Neutrophils % 78.0 H Lymphocytes % 9.7 L Monocytes % 10.4 Eosinophils % 0.2 Basophils % 0.3 Nucleated Red Blood 0.0 Cells % Immature 0.210 H Granulocytes # Neutrophils # 11.9 H Lymphocytes # 1.5 Monocytes # 1.6 H Eosinophils # 0.0 Basophils # 0.1 Nucleated Red Blood 0.0 Cells # Sodium Level 141 Potassium Level 3.9 Chloride Level 103 Carbon Dioxide Level 28 Anion Gap 10 Blood Urea Nitrogen 28 #H Creatinine 3.43 H Est Glomerular Filtrat Rate mL/min Glucose Level 88 # Calcium Level 7.8 L Phosphorus Level 3.8 Magnesium Level 2.0 Random Vancomycin 18.6 Level Test 04/11/19 11:44 04/11/19 12:08 Bedside Glucose 63 L 93 Home Meds Reported Medications Docusate Sodium* (Docusate Sodium*) 100 Mg Capsule, 100 MG PO BID, #60 CAP 04/01/19 Metoprolol Succinate* (Toprol XL*) 25 Mg Tab.sr.24h, 25 MG PO DAILY, #30 TAB 04/01/19 Aspirin* (Aspirin* EC) 81 Mg Tablet.dr, 81 MG PO DAILY, TAB 04/01/19 Fenofibrate, Micronized (Fenofibrate) 134 Mg Capsule, 134 MG PO DAILY, CAP 04/01/19 Sevelamer Carbonate* (Renvela*) 800 Mg Tablet, 1.6 GM PO BID, TAB 04/01/19 Amiodarone Hcl* (Amiodarone Hcl*) 200 Mg Tablet, 200 MG PO DAILY, #30 TAB TAKE Q TU,TH,SAT WITH DIALYSIS 04/01/19 Montelukast Sodium* (Montelukast Sodium*) 10 Mg Tablet, 10 MG PO QHS, #30 TAB 04/01/19 [Nephro-Elieser] No Conflict Check, 1 TAB PO DAILY 04/01/19 Sacubitril/Valsartan (Entresto 24 mg-26 mg Tablet) 1 Each Tablet, 1 EACH PO BID, TAB 04/01/19 Midodrine* (Midodrine*) 5 Mg Tablet, 5 MG PO DAILY, TAB 04/01/19 Furosemide* (Furosemide*) 40 Mg Tablet, 40 MG PO DAILY, TAB 04/01/19 Atorvastatin Calcium* (Atorvastatin Calcium*) 20 Mg Tablet, 20 MG PO QHS, #30 TAB 04/01/19 Medications Current Medications Amiodarone HCl (Cordarone) 200 mg DAILY PO Last administered on 04/11/19 11:38; Admin Dose 200 MG; Start 04/02/19 at 09:00 Aspirin (Halfprin) 81 mg DAILY PO Last administered on 04/09/19 15:21; Admin Dose 81 MG; Start 04/02/19 at 09:00 Atorvastatin Calcium (Lipitor) 20 mg QHS PO Last administered on 04/08/19 21:26; Admin Dose 20 MG; Start 04/01/19 at 21:00 Docusate Sodium (Colace) 100 mg BID PO Last administered on 04/09/19 15:21; Admin Dose 100 MG; Start 04/01/19 at 21:00 Montelukast Sodium (Singulair) 10 mg QHS PO Last administered on 04/08/19 21:26; Admin Dose 10 MG; Start 04/01/19 at 21:00 Sevelamer Carbonate (Renvela) 1.6 gm BID WITH MEALS PO Last administered on 17:24; Admin Dose 1.6 GM; Start 04/01/19 at 21:00 Albuterol/ Ipratropium (Duoneb) 3 ml Q2H RESP THERAPY PRN NEB SHORTNESS OF BREATH Last administered on 04/09/19 21:01; Admin Dose 3 ML; Start 04/01/19 at 21:00 Zolpidem Tartrate (Ambien) 5 mg QHS PRN PO INSOMNIA Last administered on 22:19; Admin Dose 5 MG; Start 04/01/19 at 21:00 Norepinephrine 250 ml @ 1.875 mls/ hr TITRATE IV Last administered on 04/11/19 07:04; Admin Dose 9.375 MLS/HR; Start 04/02/19 at 02:30 IV Flush (NS 10 ml) 10 ml PRN PRN IV IV PROTOCOL; Start 04/03/19 at 17:00 Epoetin Jatinder-epbx (Retacrit (Esrd)) 10,000 unit AFTER EACH DIALYSIS SC Last administered on 04/10/19 15:55; Admin Dose 10,000 UNIT; Start 04/04/19 at 16:00 Miscellaneous Information 1 ea NOTE XX ; Start 04/05/19 at 11:30 Glucose (Glutose) 15 gm Q15M PRN PO DECREASED GLUCOSE; Start 04/05/19 at 11:30 Glucose (Glutose) 22.5 gm Q15M PRN PO DECREASED GLUCOSE; Start 04/05/19 at 11:30 Dextrose (D50w Syringe) 25 ml Q15M PRN IV DECREASED GLUCOSE Last administered on 04/11/19at 11:46; Admin Dose 25 ML; Start 04/05/19 at 11:30 Dextrose (D50w Syringe) 50 ml Q15M PRN IV DECREASED GLUCOSE; Start 04/05/19 at 11:30 Glucagon (Glucagen) 1 mg Q15M PRN IM DECREASED GLUCOSE; Start 04/05/19 at 11:30 Glucose (Glutose) 15 gm Q15M PRN BUCCAL DECREASED GLUCOSE; Start 04/05/19 at 11:30 Diagnostic Test (Pha) (Accu-Chek) 1 ea 02 XX Last administered on 04/06/19at 01:17; Admin Dose 1 EA; Start 04/06/19 at 02:00 Insulin Aspart (Novolog Insulin Pen) NOVOLOG *MILD* ALGORITHM WITH MEALS BEDTIME SC Last administered on 04/10/19 20:26; Admin Dose 1 UNIT; Start 04/05/19 at 17:35 Insulin Glargine (Lantus) 20 units DAILY@2000 SC Last administered on 04/10/19at 20:25; Admin Dose 20 UNITS; Start 04/06/19 at 20:00 Ondansetron HCl (Zofran Inj) 4 mg Q6H PRN IV NAUSEA AND/OR VOMITING; Start 04/07/19 at 17:00 Meropenem/Sodium Chloride 50 ml @ 100 mls/hr Q24H IVPB Last administered on 04/10/19at 15:52; Admin Dose 100 MLS/HR; Start 04/08/19 at 14:00 Vancomycin HCl (Vanco Iv Per Pharmacy) VANCOMYCIN PER PHARMACY PER PROTOCOL XX ; Start 04/09/19 at 11:30 Midodrine (Proamatine) 5 mg TID@0900,1300,1700 PO Last administered on 04/11/19at 11:38; Admin Dose 5 MG; Start 04/11/19 at 11:00 Dextrose 1,000 ml @ 50 mls/hr Q20H IV Last administered on 04/11/19at 13:06; Admin Dose 50 MLS/HR; Start 04/11/19 at 12:30 Assessment/Plan Hospital Course (Demo Recall) Mildly abnormal troponin secondary to sepsis renal failure etc. Sepsis/pneumonia GNR bacteremia/ septic shock Pneumonia History of hepatocellular cancer Renal failure dialysis dependent History of arrhythmia probably sick sinus syndrome versus heart block status post permanent pacemaker Encephalopathy Paroxysmal atrial fibrillation Recommendations: aspirin as long as ok with GI and no active bleeding is noted Antibiotic management as per internal medicine and consultants Continue to be hemodialysis as tolerated Unable to tolerate beta-damian due to his low blood pressure Milronone would be continued levophed as needed f/u GI consultation rec will check cortisol level in AM Pacemaker card reviewed. pacemaker is an MRI compatible and MRI can be done . need to call [employer] rep to change the pacemaker setting right before and after the MRCP. PLEASE CONTACT Zoomy rep (Rubio at [phone]) to arrange for setting change Thank you for this referral. We will continue to follow along with you as needed over the weekend JOSE D SOLOMON MD [facility] JOSE D SOLOMON MD Apr 11, 2019 14:35
[2019-04-11] MEDS: MEROPENEM 500MG/50 ML (PMX) 50 ML IVPB SCH (14:40)
--- NOTE | 2019-04-11 15:12 | CONS ---
Assessment/Plan Assessment/Plan Hospital Course (Demo Recall) No acute events patient remains on Levophed drip T-max 99.7 today he is very weak not eating in no distress WBC today 15.2 platelets 236 neutrophils 78 Chest x-ray this morning revealed moderately increased diffuse interstitial edema suggesting cardiopulmonary congestion Microbiology: Blood culture on admission grew Bacteroides fragilis, repeat cx neg Indwelling's right upper extremity AV fistula Antimicrobials:Vanco Merrem Physical examination: This is an obese well-developed chronically ill elderly Pashto man who is in no distress. Head atraumatic normocephalic neck is supple chest rise symmetrical breath sounds diminished bases. Heart: S1-S2. Tachycardic abdomen soft obese bowel sounds hypoactive extremities without cyanosis, trace edema Assessment: 1. Sepsis with shock 2. Bacteremia ? source==>likely intraabdominal 3. End-stage renal disease, hemodialysis dependent 4. Recently diagnosed hepatocellular carcinoma, poss obstructing mass and peritoneal carcinomatosis 5. Coronary artery disease status post permanent pacemaker 6. Diabetes 7. Atrial fibrillation Plan: Remains unchanged, hemodynamically unstable, change antibiotics to Flagyl Consultation Date/Type/Reason Admit Date/Time Apr 01, 2019 at 17:43 Initial Consult Date 04/03/19 Type of Consult id Requesting Provider: ADA RANGEL DO Date/Time of Note DATE: 04/11/19 TIME: 15:11 Exam/Review of Systems Exam Vitals Vital Signs Date Temp Pulse Resp B/P (MAP) Pulse Ox O2 O2 Flow FiO2 Time Delivery Rate 04/11/19 98 12:00 04/11/19 2.0 10:24 04/11/19 19 95/67 (76) 06:15 04/11/19 Nasal 06:00 Cannula 04/11/19 98.6 04:00 04/11/19 100 03:15 04/09/19 28 21:04 Intake and Output 04/10/19 04/10/19 04/11/19 1515:00 23:00 07:00 IntakeIntake Total 497.500 ml 127 ml 68.750 ml OutputOutput Total 1400 ml BalanceBalance -902.500 ml 127 ml 68.750 ml Results Result Diagram: 04/11/19 0330 04/11/19 0330 Results 24hrs Laboratory Tests Test 04/10/19 20:17 04/11/19 01:53 04/11/19 03:30 04/11/19 03:44 Bedside Glucose 151 94 92 White Blood Count 15.2 H Red Blood Count 3.00 L Hemoglobin 9.1 L Hematocrit 30.0 L Mean Corpuscular 100.0 Volume Mean Corpuscular 30.3 Hemoglobin Mean Corpuscular 30.3 L Hemoglobin Concent Red Cell 17.2 H Distribution Width Platelet Count 236 # Mean Platelet Volume 10.7 H Immature 1.400 H Granulocytes % Neutrophils % 78.0 H Lymphocytes % 9.7 L Monocytes % 10.4 Eosinophils % 0.2 Basophils % 0.3 Nucleated Red Blood 0.0 Cells % Immature 0.210 H Granulocytes # Neutrophils # 11.9 H Lymphocytes # 1.5 Monocytes # 1.6 H Eosinophils # 0.0 Basophils # 0.1 Nucleated Red Blood 0.0 Cells # Sodium Level 141 Potassium Level 3.9 Chloride Level 103 Carbon Dioxide Level 28 Anion Gap 10 Blood Urea Nitrogen 28 #H Creatinine 3.43 H Est Glomerular Filtrat Rate mL/min Glucose Level 88 # Calcium Level 7.8 L Phosphorus Level 3.8 Magnesium Level 2.0 Random Vancomycin 18.6 Level Test 04/11/19 11:44 04/11/19 12:08 Bedside Glucose 63 L 93 Medications Medication Current Medications Amiodarone HCl (Cordarone) 200 mg DAILY PO Last administered on 04/11/19 11:38; Admin Dose 200 MG; Start 04/02/19 at 09:00 Aspirin (Halfprin) 81 mg DAILY PO Last administered on 04/09/19 15:21; Admin Dose 81 MG; Start 04/02/19 at 09:00 Atorvastatin Calcium (Lipitor) 20 mg QHS PO Last administered on 04/08/19 21:26; Admin Dose 20 MG; Start 04/01/19 at 21:00 Docusate Sodium (Colace) 100 mg BID PO Last administered on 04/09/19 15:21; Admin Dose 100 MG; Start 04/01/19 at 21:00 Montelukast Sodium (Singulair) 10 mg QHS PO Last administered on 04/08/19 21 :26; Admin Dose 10 MG; Start 04/01/19 at 21:00 Sevelamer Carbonate (Renvela) 1.6 gm BID WITH MEALS PO Last administered on 04/09/19 17:24; Admin Dose 1.6 GM; Start 04/01/19 at 21:00 Albuterol/ Ipratropium (Duoneb) 3 ml Q2H RESP THERAPY PRN NEB SHORTNESS OF BREATH Last administered on 04/09/19at 21:01; Admin Dose 3 ML; Start 04/01/19 at 21:00 Zolpidem Tartrate (Ambien) 5 mg QHS PRN PO INSOMNIA Last administered on 04/05/19at 22:19; Admin Dose 5 MG; Start 04/01/19 at 21:00 Norepinephrine 250 ml @ 1.875 mls/ hr TITRATE IV Last administered on 04/11/19at 07:04; Admin Dose 9.375 MLS/HR; Start 04/02/19 at 02:30 IV Flush (NS 10 ml) 10 ml PRN PRN IV IV PROTOCOL; Start 04/03/19 at 17:00 Epoetin Jatinder-epbx (Retacrit (Esrd)) 10,000 unit AFTER EACH DIALYSIS SC Last administered on 04/10/19at 15:55; Admin Dose 10,000 UNIT; Start 04/04/19 at 16:00 Miscellaneous Information 1 ea NOTE XX ; Start 04/05/19 at 11:30 Glucose (Glutose) 15 gm Q15M PRN PO DECREASED GLUCOSE; Start 04/05/19 at 11:30 Glucose (Glutose) 22.5 gm Q15M PRN PO DECREASED GLUCOSE; Start 04/05/19 at 11:30 Dextrose (D50w Syringe) 25 ml Q15M PRN IV DECREASED GLUCOSE Last administered on 04/11/19at 11:46; Admin Dose 25 ML; Start 04/05/19 at 11:30 Dextrose (D50w Syringe) 50 ml Q15M PRN IV DECREASED GLUCOSE; Start 04/05/19 at 11:30 Glucagon (Glucagen) 1 mg Q15M PRN IM DECREASED GLUCOSE; Start 04/05/19 at 11:30 Glucose (Glutose) 15 gm Q15M PRN BUCCAL DECREASED GLUCOSE; Start 04/05/19 at 11:30 Diagnostic Test (Pha) (Accu-Chek) 1 ea 02 XX Last administered on 04/06/19at 01:17; Admin Dose 1 EA; Start 04/06/19 at 02:00 Insulin Aspart (Novolog Insulin Pen) NOVOLOG *MILD* ALGORITHM WITH MEALS BEDTIME SC Last administered on 04/10/19 20:26; Admin Dose 1 UNIT; Start 04/05/19 at 17:35 Insulin Glargine (Lantus) 20 units DAILY@2000 SC Last administered on 04/10/19at 20:25; Admin Dose 20 UNITS; Start 04/06/19 at 20:00 Ondansetron HCl (Zofran Inj) 4 mg Q6H PRN IV NAUSEA AND/OR VOMITING; Start 04/07/19 at 17:00 Meropenem/Sodium Chloride 50 ml @ 100 mls/hr Q24H IVPB Last administered on 04/11/19at 14:40; Admin Dose 100 MLS/HR; Start 04/08/19 at 14:00 Vancomycin HCl (Vanco Iv Per Pharmacy) VANCOMYCIN PER PHARMACY PER PROTOCOL XX ; Start 04/09/19 at 11:30 Midodrine (Proamatine) 5 mg TID@0900,1300,1700 PO Last administered on 04/11/19 14:48; Admin Dose 5 MG; Start 04/11/19 at 11:00 Dextrose 1,000 ml @ 50 mls/hr Q20H IV Last administered on 04/11/19at 13:06; Admin Dose 50 MLS/HR; Start 04/11/19 at 12:30 JOAO RAHMAN NP Apr 11, 2019 15:12
[2019-04-11] MEDS: metroNIDAZOLE 500 MG/NS (PMX) 100 ML IVPB SCH ×2 (17:22→21:54)
[2019-04-11] MEDS: INSULIN GLARGINE [LANTus] (100 UNITS/ML) SYG SC SCH (20:21)
[2019-04-11] MEDS: ATORVASTATIN 20 MG TAB PO SCH (21:00)
[2019-04-11] MEDS: MONTELUKAST 10 MG TAB PO SCH (21:00)
[2019-04-12] VITALS (105 sets, daily range): BP systolic 48–144; BP diastolic 13–80; PULSE 72–103; RESP 14–54
[2019-04-12] MEDS: NORepinephrine 8MG/250 ML (PMX 250 ML IV SCH ×2 (00:29→19:12)
[2019-04-12] MEDS: ACCU-CHEK XX SCH (01:47)
[2019-04-12] MEDS: metroNIDAZOLE 500 MG/NS (PMX) 100 ML IVPB SCH ×3 (05:31→21:35)
--- NOTE | 2019-04-12 07:13 | CONS ---
Consult Date/Type/Reason Admit Date/Time Apr 01, 2019 at 17:43 Initial Consult Date 04/03/19 Type of Consultation: cv Requesting Provider: ADA RANGEL DO Date/Time of Note DATE: 04/12/19 TIME: 07:10 Subjective Cardiology follow-up progress note Subjective: Discussed with the staff. Telemetry was reviewed. Patient has remained in sinus rhythm./ demand pacing Patient remains in ICU and hypotensive and remains on levophed drip No report of any chest pain or pressure he denies PND orthopnea to me Objective: General: no acute distress HEENT: NC/AT. pupils are equal. round. NECK: no stridor. CV: RRR. systolic murmur; no gallop or rubs. PULM: no wheezing or rhonchi. GI: SOFT, NT, ND, no rebound or guarding Extremity: + B/L LE edema. no clubbing. neuro: awake Psych: calm rectal: deferred EKG shows ventricular paced rhythm Chest x-ray done 03/24/2019 shows: 1. New left-sided PICC in proximal SVC. 2. Persistent small left-sided pleural effusion with left lung base atelectasis/infiltrate. 3. Persistent patchy opacity of the right lung base. 4. Persistent cardiomegaly with mild vascular congestion CT 1. Again noted is severe dilatation of left intrahepatic biliary ducts. No gross evidence of hepatic mass is seen, though sensitivity is markedly limited without IV contrast. Findings remain concerning for obstructive mass in the central left hepatic lobe, as described in the prior CT report. 2. Findings compatible with peritoneal carcinomatosis. Moderate ascites, grossly stable. 3. Stable mild cardiomegaly. Coronary arterial and aortoiliac atherosclerotic calcifications. 4. Mild to moderate bilateral pleural effusions, grossly stable. Bibasilar atelectasis. 5. Cholelithiasis, without evidence for cholecystitis. 6. Chronic bilateral renal cortical thinning and atrophy, unchanged. Objective Vitals Vital Signs Date Temp Pulse Resp B/P (MAP) Pulse Ox O2 O2 Flow FiO2 Time Delivery Rate 04/12/19 85 24 93/31 (51) 100 Nasal 05:45 Cannula 04/12/19 97.8 04:00 04/11/19 3.0 20:00 04/09/19 28 21:04 Intake and Output 04/11/19 04/11/1904/12/19 1515:00 23:00 07:00 IntakeIntake Total 201.250 ml 566.250 ml 512.48 ml BalanceBalance 201.250 ml 566.250 ml 512.48 ml Results/Medications Result Diagram: 04/12/19 0430 04/12/19 0430 Results 24 hrs Laboratory Tests Test 04/11/19 11:44 04/11/19 12:08 04/11/19 15:21 04/11/19 17:53 Bedside Glucose 63 L 93 83 94 Test 04/11/19 20:08 04/12/19 01:47 04/12/19 04:30 04/12/19 05:22 Bedside Glucose 95 114 106 White Blood Count 17.4 H Red Blood Count 3.04 L Hemoglobin 9.1 L Hematocrit 29.5 L Mean Corpuscular 97.0 Volume Mean Corpuscular 29.9 Hemoglobin Mean Corpuscular 30.8 L Hemoglobin Concent Red Cell 17.0 H Distribution Width Platelet Count 314 # Mean Platelet Volume 10.6 H Immature 1.700 H Granulocytes % Neutrophils % 78.3 H Lymphocytes % 9.3 L Monocytes % 10.3 Eosinophils % 0.2 Basophils % 0.2 Nucleated Red Blood 0.0 Cells % Immature 0.300 H Granulocytes # Neutrophils # 13.6 H Lymphocytes # 1.6 Monocytes # 1.8 H Eosinophils # 0.0 Basophils # 0.0 Nucleated Red Blood 0.0 Cells # Sodium Level 138 Potassium Level 3.9 Chloride Level 102 Carbon Dioxide Level 27 Anion Gap 9 Blood Urea Nitrogen 40 #H Creatinine 4.28 H Est Glomerular Filtrat Rate mL/min Glucose Level 109 Calcium Level 7.8 L Phosphorus Level 5.0 H Magnesium Level 2.1 Random Cortisol 27.7 Home Meds Reported Medications Docusate Sodium* (Docusate Sodium*) 100 Mg Capsule, 100 MG PO BID, #60 CAP 04/01/19 Metoprolol Succinate* (Toprol XL*) 25 Mg Tab.sr.24h, 25 MG PO DAILY, #30 TAB 04/01/19 Aspirin* (Aspirin* EC) 81 Mg Tablet.dr, 81 MG PO DAILY, TAB 04/01/19 Fenofibrate, Micronized (Fenofibrate) 134 Mg Capsule, 134 MG PO DAILY, CAP 04/01/19 Sevelamer Carbonate* (Renvela*) 800 Mg Tablet, 1.6 GM PO BID, TAB 04/01/19 Amiodarone Hcl* (Amiodarone Hcl*) 200 Mg Tablet, 200 MG PO DAILY, #30 TAB TAKE Q TU,TH,SAT WITH DIALYSIS 04/01/19 Montelukast Sodium* (Montelukast Sodium*) 10 Mg Tablet, 10 MG PO QHS, #30 TAB 04/01/19 [Nephro-Elieser] No Conflict Check, 1 TAB PO DAILY 04/01/19 Sacubitril/Valsartan (Entresto 24 mg-26 mg Tablet) 1 Each Tablet, 1 EACH PO BID, TAB 04/01/19 Midodrine* (Midodrine*) 5 Mg Tablet, 5 MG PO DAILY, TAB 04/01/19 Furosemide* (Furosemide*) 40 Mg Tablet, 40 MG PO DAILY, TAB 04/01/19 Atorvastatin Calcium* (Atorvastatin Calcium*) 20 Mg Tablet, 20 MG PO QHS, #30 TAB 04/01/19 Medications Current Medications Amiodarone HCl (Cordarone) 200 mg DAILY PO Last administered on 04/11/19at 11:38; Admin Dose 200 MG; Start 04/02/19 at 09:00 Aspirin (Halfprin) 81 mg DAILY PO Last administered on 04/09/19 15:21; Admin Dose 81 MG; Start 04/02/19 at 09:00 Atorvastatin Calcium (Lipitor) 20 mg QHS PO Last administered on 04/08/19 21:26; Admin Dose 20 MG; Start 04/01/19 at 21:00 Docusate Sodium (Colace) 100 mg BID PO Last administered on 04/09/19 15:21; Admin Dose 100 MG; Start 04/01/19 at 21:00 Montelukast Sodium (Singulair) 10 mg QHS PO Last administered on 04/08/19 21:26; Admin Dose 10 MG; Start 04/01/19 at 21:00 Sevelamer Carbonate (Renvela) 1.6 gm BID WITH MEALS PO Last administered on 04/09/19 17:24; Admin Dose 1.6 GM; Start 04/01/19 at 21:00 Albuterol/ Ipratropium (Duoneb) 3 ml Q2H RESP THERAPY PRN NEB SHORTNESS OF BREATH Last administered on 04/09/19 21:01; Admin Dose 3 ML; Start 04/01/19 at 21:00 Zolpidem Tartrate (Ambien) 5 mg QHS PRN PO INSOMNIA Last administered on 04/05/19 22:19; Admin Dose 5 MG; Start 04/01/19 at 21:00 Norepinephrine 250 ml @ 1.875 mls/ hr TITRATE IV Last administered on 04/12/19 00:29; Admin Dose 15 MLS/HR; Start 04/02/19 at 02:30 IV Flush (NS 10 ml) 10 ml PRN PRN IV IV PROTOCOL; Start 04/03/19 at 17:00 Epoetin Jatinder-epbx (Retacrit (Esrd)) 10,000 unit AFTER EACH DIALYSIS SC Last adm inistered on 04/10/19 15:55; Admin Dose 10,000 UNIT; Start 04/04/19 at 16:00 Miscellaneous Information 1 ea NOTE XX ; Start 04/05/19 at 11:30 Glucose (Glutose) 15 gm Q15M PRN PO DECREASED GLUCOSE; Start 04/05/19 at 11:30 Glucose (Glutose) 22.5 gm Q15M PRN PO DECREASED GLUCOSE; Start 04/05/19 at 1 1:30 Dextrose (D50w Syringe) 25 ml Q15M PRN IV DECREASED GLUCOSE Last administered on 04/11/19at 11:46; Admin Dose 25 ML; Start 04/05/19 at 11:30 Dextrose (D50w Syringe) 50 ml Q15M PRN IV DECREASED GLUCOSE; Start 04/05/19 at 11:30 Glucagon (Glucagen) 1 mg Q15M PRN IM DECREASED GLUCOSE; Start 04/05/19 at 11:30 Glucose (Glutose) 15 gm Q15M PRN BUCCAL DECREASED GLUCOSE; Start 04/05/19 at 11:30 Diagnostic Test (Pha) (Accu-Chek) 1 ea 02 XX Last administered on 04/06/19at 01:17; Admin Dose 1 EA; Start 04/06/19 at 02:00 Insulin Aspart (Novolog Insulin Pen) NOVOLOG *MILD* ALGORITHM WITH MEALS BEDT SHAHZAD SC Last administered on 04/10/19 20:26; Admin Dose 1 UNIT; Start 04/05/19 at 17:35 Insulin Glargine (Lantus) 20 units DAILY@2000 SC Last administered on 04/11/19 20:21; Admin Dose 20 UNITS; Start 04/06/19 at 20:00 Ondansetron HCl (Zofran Inj) 4 mg Q6H PRN IV NAUSEA AND/OR VOMITING; Start at 17:00 Midodrine (Proamatine) 5 mg TID@0900,1300,1700 PO Last administered on 04/11/19 17:54; Admin Dose 5 MG; Start 04/11/19 at 11:00 Dextrose 1,000 ml @ 50 mls/hr Q20H IV Last administered on 04/11/19 13:06; Admin Dose 50 MLS/HR; Start 04/11/19 at 12:30 Metronidazole 100 ml @ 100 mls/hr Q8 IVPB Last administered on 04/12/19 05:31; Admin Dose 100 MLS/HR; Start 04/11/19 at 15:30 Assessment/Plan Hospital Course (Demo Recall) Mildly abnormal troponin secondary to sepsis renal failure etc. Sepsis/pneumonia GNR bacteremia/ septic shock Pneumonia History of hepatocellular cancer Renal failure dialysis dependent History of arrhythmia probably sick sinus syndrome versus heart block status post permanent pacemaker Encephalopathy Paroxysmal atrial fibrillation Recommendations: pt is NPO now. swallow eval to see if he can eat aspirin as long as ok with GI and no active bleeding is noted Antibiotic management as per internal medicine and consultants Continue to be hemodialysis as tolerated Unable to tolerate beta-damian due to his low blood pressure Milronone would be continued levophed as needed f/u GI consultation rec cortisol level in AM was wnl. Pacemaker card reviewed. pacemaker is an MRI compatible and MRI can be done . need to call [employer] rep to change the pacemaker setting right before and after the MRCP. PLEASE CONTACT [employer] rep (Rubio at [phone]) to arrange for setting change Thank you for this referral. We will continue to follow along with you as needed over the weekend JOSE D SOLOMON MD [facility] JOSE D SOLOMON MD Apr 12, 2019 07:13
[2019-04-12] MEDS: AMIODARONE 200 MG TAB PO SCH (08:00)
[2019-04-12] MEDS: DOCUSATE SODIUM 100 MG CAP PO SCH ×2 (08:00→20:45)
[2019-04-12] MEDS: ASPIRIN (EC) 81 MG TAB PO SCH (08:00)
[2019-04-12] MEDS: MIDODRINE 5 MG TAB PO SCH ×3 (08:00→19:18)
[2019-04-12] MEDS: SEVELAMER CARBONATE 0.8 GM PKT PO SCH ×2 (08:00→17:32)
[2019-04-12] MEDS: DEXTROSE 5% 1,000 ML IV SCH ×2 (08:30→12:16)
--- NOTE | 2019-04-12 08:30 | PN ---
DATE: 04/12/2019 SUBJECTIVE: The patient remains critically ill on pressor support. No other acute events noted. No hemoptysis, hematemesis or hematochezia. The patient is pending possible ERCP today. OBJECTIVE: VITAL SIGNS: Blood pressure is 93/31, respirations 24, pulse 85, temperature 98.6. HEENT: Head is normocephalic. NECK: Supple. HEART: Regular rate. LUNGS: Show diminished breath sounds at the base. ABDOMEN: Soft, nontender to palpation without rebound or guarding. EXTREMITIES: Negative for clubbing, cyanosis, no edema. DERMATOLOGIC: No rashes. MUSCULOSKELETAL: No joint effusion. NEUROLOGIC: No change in exam. MEDICATIONS: The patient's medications have been reviewed. LABORATORY DATA: Reviewed. IMAGING STUDIES: Reviewed. ASSESSMENT AND PLAN: 1. Septic shock. Etiology is secondary to bacteremia secondary to gram-negative rods. Underlying s ource is felt to be intraabdominal. The patient is on intermittent pressors. We will continue curre nt antibiotic therapy, continue pressor support. Continue midodrine, attempt to wean off. 2. 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 The patie nt has markedly elevated CA19-9. Appreciate Oncology/GI evaluation. The patient is pending ERCP whe n clinically stable for tissue diagnosis. Continue to monitor. 3. Anemia. Monitor hemoglobin and hematocrit levels. We will give Epogen as needed. 4. Mineral bone disorder. Monitor calcium and phosphorus levels. 5. Hematochezia. Continue to monitor. 6. End-stage renal disease. Plan is for hemodialysis today. 7. Elevated troponin, non-ST elevated myocardial infarction type II. Continue to monitor. Follow u p with Cardiology. 8. Diabetes. Continue current insulin regimen. 9. Nutrition. The patient remains n.p.o. for possible ERCP. After the procedure, the patient will likely need NG tube for tube feeding or to start TPN. 10. Arrhythmia with pacemaker. 11. Volume overload, improved. Continue ultrafiltration with dialysis if hemodynamically stable. 12. Acute encephalopathy, etiology is toxic metabolic. 13. Lower extremity wounds. Continue wound care. Dictated By: ADA RANGEL DO NR/NTS Conf#: [id number] DID#: [id number] CC: TRAE TRAVIS MD; DYLAN GREENE MD;*EndCC*
[2019-04-12] MEDS: BALSAM PERU/CASTOR OIL 60 GM TUBE TOP SCH ×2 (09:00→20:53)
[2019-04-12] MEDS: INSULIN ASPART [NOVOLOG] 3 ML PEN SC SCH ×4 (09:31→20:52)
--- NOTE | 2019-04-12 11:29 | CONS ---
Consult Date/Type/Reason Admit Date/Time Apr 01, 2019 at 17:43 Initial Consult Date 04/03/19 Type of Consult Pulmonary Requesting Provider: ADA RANGEL DO Date/Time of Note DATE: 04/12/19 TIME: 11:28 Subjective Patient continues hemodialysis this morning remains somewhat encephalopathic significant global weakness. Objective Vital Signs Date Temp Pulse Resp B/P (MAP) Pulse Ox O2 O2 Flow FiO2 Time Delivery Rate 04/12/19 90 11:10 04/12/19 23 124/59 Nasal 2.0 08:20 (80) Cannula 04/12/19 98.4 99 08:00 04/09/19 28 21:04 Intake and Output 04/11/19 04/11/19 04/12/19 1515:00 23:00 07:00 IntakeIntake Total 201.250 ml 566.250 ml 512.48 ml BalanceBalance 201.250 ml 566.250 ml 512.48 ml Exam GENERAL: Elderly appearing gentleman on nasal cannula O2. VITAL SIGNS: per chart NECK: Supple. No JVD or lymphadenopathy. CARDIAC EXAM: S1, S2. No added sounds or murmurs. CHEST: clear bilaterally, No added sounds, rales or wheezes ABDOMEN: Soft, nontender. No guarding or rebound. EXTREMITIES: No cyanosis, clubbing or edema. NEUROLOGIC: Generalized weakness. No focal deficits Vent Setting Fraction of Inspired Oxygen pe: 28 Results/Medications Result Diagram: 04/12/19 0430 04/12/19 0430 Results 24 hrs Laboratory Tests Test 04/11/19 11:44 04/11/19 12:08 04/11/19 15:21 04/11/19 17:53 Bedside Glucose 63 L 93 83 94 Test 04/11/19 20:08 04/12/19 01:47 04/12/19 04:30 04/12/19 05:22 Bedside Glucose 95 114 106 White Blood Count 17.4 H Red Blood Count 3.04 L Hemoglobin 9.1 L Hematocrit 29.5 L Mean Corpuscular 97.0 Volume Mean Corpuscular 29.9 Hemoglobin Mean Corpuscular 30.8 L Hemoglobin Concent Red Cell 17.0 H Distribution Width Platelet Count 314 # Mean Platelet Volume 10.6 H Immature 1.700 H Granulocytes % Neutrophils % 78.3 H Lymphocytes % 9.3 L Monocytes % 10.3 Eosinophils % 0.2 Basophils % 0.2 Nucleated Red Blood 0.0 Cells % Immature 0.300 H Granulocytes # Neutrophils # 13.6 H Lymphocytes # 1.6 Monocytes # 1.8 H Eosinophils # 0.0 Basophils # 0.0 Nucleated Red Blood 0.0 Cells # Sodium Level 138 Potassium Level 3.9 Chloride Level 102 Carbon Dioxide Level 27 Anion Gap 9 Blood Urea Nitrogen 40 #H Creatinine 4.28 H Est Glomerular Filtrat Rate mL/min Glucose Level 109 Calcium Level 7.8 L Phosphorus Level 5.0 H Magnesium Level 2.1 Procalcitonin 2.92 H Random Cortisol 27.7 Test 04/12/19 09:31 Bedside Glucose 89 Medications Current Medications Amiodarone HCl (Cordarone) 200 mg DAILY PO Last administered on 04/11/19 11:38; Admin Dose 200 MG; Start 04/02/19 at 09:00 Aspirin (Halfprin) 81 mg DAILY PO Last administered on 04/09/19 15:21; Admin Dose 81 MG; Start 04/02/19 at 09:00 Atorvastatin Calcium (Lipitor) 20 mg QHS PO Last administered on 04/08/19 21:26; Admin Dose 20 MG; Start 04/01/19 at 21:00 Docusate Sodium (Colace) 100 mg BID PO Last administered on 04/09/19 15:21; Admin Dose 100 MG; Start 04/01/19 at 21:00 Montelukast Sodium (Singulair) 10 mg QHS PO Last administered on 04/08/19 21:26; Admin Dose 10 MG; Start 04/01/19 at 21:00 Sevelamer Carbonate (Renvela) 1.6 gm BID WITH MEALS PO Last administered on 04/09/19 17:24; Admin Dose 1.6 GM; Start 04/01/19 at 21:00 Albuterol/ Ipratropium (Duoneb) 3 ml Q2H RESP THERAPY PRN NEB SHORTNESS OF BREATH Last administered on 04/09/19 21:01; Admin Dose 3 ML; Start 04/01/19 at 21:00 Zolpidem Tartrate (Ambien) 5 mg QHS PRN PO INSOMNIA Last administered on 04/05/19 22:19; Admin Dose 5 MG; Start 04/01/19 at 21:00 Norepinephrine 250 ml @ 1.875 mls/ hr TITRATE IV Last administered on 04/12/19at 00:29; Admin Dose 15 MLS/HR; Start 04/02/19 at 02:30 IV Flush (NS 10 ml) 10 ml PRN PRN IV IV PROTOCOL; Start 04/03/19 at 17:00 Epoetin Jatinder-epbx (Retacrit (Esrd)) 10,000 unit AFTER EACH DIALYSIS SC Last administered on 04/10/19at 15:55; Admin Dose 10,000 UNIT; Start 04/04/19 at 16:00 Miscellaneous Information 1 ea NOTE XX ; Start 04/05/19 at 11:30 Glucose (Glutose) 15 gm Q15M PRN PO DECREASED GLUCOSE; Start 04/05/19 at 11:30 Glucose (Glutose) 22.5 gm Q15M PRN PO DECREASED GLUCOSE; Start 04/05/19 at 11:30 Dextrose (D50w Syringe) 25 ml Q15M PRN IV DECREASED GLUCOSE Last administered on 04/11/19at 11:46; Admin Dose 25 ML; Start 04/05/19 at 11:30 Dextrose (D50w Syringe) 50 ml Q15M PRN IV DECREASED GLUCOSE; Start 04/05/19 at 11:30 Glucagon (Glucagen) 1 mg Q15M PRN IM DECREASED GLUCOSE; Start 04/05/19 at 11:30 Glucose (Glutose) 15 gm Q15M PRN BUCCAL DECREASED GLUCOSE; Start 04/05/19 at 11:30 Diagnostic Test (Pha) (Accu-Chek) 1 ea 02 XX Last administered on 04/06/19at 01:17; Admin Dose 1 EA; Start 04/06/19 at 02:00 Insulin Aspart (Novolog Insulin Pen) NOVOLOG *MILD* ALGORITHM WITH MEALS BEDTIME SC Last administered on 04/10/19at 20:26; Admin Dose 1 UNIT; Start 04/05/19 at 17:35 Insulin Glargine (Lantus) 20 units DAILY@2000 SC Last administered on 04/11/19at 20:21; Admin Dose 20 UNITS; Start 04/06/19 at 20:00 Ondansetron HCl (Zofran Inj) 4 mg Q6H PRN IV NAUSEA AND/OR VOMITING; Start 04/07/19 at 17:00 Dextrose 1,000 ml @ 50 mls/hr Q20H IV Last administered on 04/11/19at 13:06; Admin Dose 50 MLS/HR; Start 04/11/19 at 12:30 Metronidazole 100 ml @ 100 mls/hr Q8 IVPB Last administered on 04/12/19at 05:31 ; Admin Dose 100 MLS/HR; Start 04/11/19 at 15:30 Midodrine (Proamatine) 10 mg TID@0900,1300,1700 PO ; Start 04/12/19 at 09:00 Assessment/Plan Hospital Course (Demo Recall) Assessment 1. Septic shock requiring vasopressor support blood cultures positive for Bacteroides 2. History of end-stage renal failure on hemodialysis 3. History of hepatocellular CA 4. History of arrhythmia with pacemaker 5. Diabetes mellitus 6. Dysphagia remains risk of aspiration. 7. Encephalopathy toxic metabolic Plan 1. Continue supplemental O2 as needed 2. Hemodialysis as tolerated. 3. Continue antibiotics per ID 4. Aspiration precautions 5. Titrate vasopressors to keep map greater than 65, check cortisol level. 6. Speech therapy recommendations Critical care time 40 minutes Consider palliative care evaluation. Family had declined nasogastric and G tube. TRAE TRAVIS MD, [facility] Apr 12, 2019 11:29
--- NOTE | 2019-04-12 14:48 | CONS ---
Assessment/Plan Assessment/Plan Hospital Course (Demo Recall) No events overnight patient remains on Levophed drip he is very weak but awake and in no distress asking for water no fevers overnight. WBC 17.4 platelets 314 neutrophils 78.3 Antimicrobials: Flagyl Microbiology: Blood culture on admission grew Bacteroides fragilis, repeat cx neg Indwelling's right upper extremity AV fistula Antimicrobials:Vanco Merrem Physical examination: This is an obese well-developed chronically ill elderly [place] man who is in no distress. Head atraumatic normocephalic neck is supple chest rise symmetrical breath sounds diminished bases. Heart: S1-S2. Ta chycardic abdomen soft obese bowel sounds hypoactive extremities without cyanosis, trace edema Assessment: 1. Sepsis with shock 2. Bacteremia ? source==>likely intraabdominal 3. End-stage renal disease, hemodialysis dependent 4. Recently diagnosed hepatocellular carcinoma, poss obstructing mass and peritoneal carcinomatosis 5. Coronary artery disease status post permanent pacemaker 6. Diabetes 7. Atrial fibrillation Plan: Remains unchanged, overall doing poorly, not eating, family refused NG tube, continue antibiotics, consider palliative care evaluation Consultation Date/Type/Reason Admit Date/Time Apr 01, 2019 at 17:43 Initial Consult Date 04/03/19 Type of Consult id Requesting Provider: ADA RANGEL DO Date/Time of Note DATE: 04/12/19 TIME: 14:44 Exam/Review of Systems Exam Vitals Vital Signs Date Temp Pulse Resp B/P (MAP) Pulse Ox O2 O2 Flow FiO2 Time Delivery Rate 04/12/19 98.5 17 93/48 (63) 100 Nasal 2.0 12:36 Cannula 04/12/19 97 12:00 04/09/19 28 21:04 Intake and Output 04/11/19 04/11/19 04/12/19 1515:00 23:00 07:00 IntakeIntake Total 201.250 ml 566.250 ml 512.48 ml BalanceBalance 201.250 ml 566.250 ml 512.48 ml Results Result Diagram: 04/12/19 0430 04/12/19 0430 Results 24hrs Laboratory Tests Test 04/11/19 15:21 04/11/19 17:53 04/11/19 20:08 04/12/19 01:47 Bedside Glucose 83 94 95 114 Test 04/12/19 04:30 04/12/19 05:22 04/12/19 09:31 04/12/19 12:24 White Blood Count 17.4 H Red Blood Count 3.04 L Hemoglobin 9.1 L Hematocrit 29.5 L Mean Corpuscular 97.0 Volume Mean Corpuscular 29.9 Hemoglobin Mean Corpuscular 30.8 L Hemoglobin Concent Red Cell 17.0 H Distribution Width Platelet Count 314 # Mean Platelet Volume 10.6 H Immature 1.700 H Granulocytes % Neutrophils % 78.3 H Lymphocytes % 9.3 L Monocytes % 10.3 Eosinophils % 0.2 Basophils % 0.2 Nucleated Red Blood 0.0 Cells % Immature 0.300 H Granulocytes # Neutrophils # 13.6 H Lymphocytes # 1.6 Monocytes # 1.8 H Eosinophils # 0.0 Basophils # 0.0 Nucleated Red Blood 0.0 Cells # Sodium Level 138 Potassium Level 3.9 Chloride Level 102 Carbon Dioxide Level 27 Anion Gap 9 Blood Urea Nitrogen 40 #H Creatinine 4.28 H Est Glomerular Filtrat Rate mL/min Glucose Level 109 Calcium Level 7.8 L Phosphorus Level 5.0 H Magnesium Level 2.1 Procalcitonin 2.92 H Random Cortisol 27.7 Bedside Glucose 106 89 80 Medications Medication Current Medications Amiodarone HCl (Cordarone) 200 mg DAILY PO Last administered on 04/11/19 11:38; Admin Dose 200 MG; Start 04/02/19 at 09:00 Aspirin (Halfprin) 81 mg DAILY PO Last administered on 04/09/19 15:21; Admin Dose 81 MG; Start 04/02/19 at 09:00 Atorvastatin Calcium (Lipitor) 20 mg QHS PO Last administered on 04/08/19 21:26; Admin Dose 20 MG; Start 04/01/19 at 21:00 Docusate Sodium (Colace) 100 mg BID PO Last administered on 04/09/19 15:21; Admin Dose 100 MG; Start 04/01/19 at 21:00 Montelukast Sodium (Singulair) 10 mg QHS PO Last administered on 04/08/19 21:26; Admin Dose 10 MG; Start 04/01/19 at 21:00 Sevelamer Carbonate (Renvela) 1.6 gm BID WITH MEALS PO Last administered on 04/09/19 17:24; Admin Dose 1.6 GM; Start 04/01/19 at 21:00 Albuterol/ Ipratropium (Duoneb) 3 ml Q2H RESP THERAPY PRN NEB SHORTNESS OF BREATH Last administered on 04/09/19at 21:01; Admin Dose 3 ML; Start 04/01/19 at 21:00 Zolpidem Tartrate (Ambien) 5 mg QHS PRN PO INSOMNIA Last administered on 04/05/19at 22:19; Admin Dose 5 MG; Start 04/01/19 at 21:00 Norepinephrine 250 ml @ 1.875 mls/ hr TITRATE IV Last administered on 04/12/19at 00:29; Admin Dose 15 MLS/HR; Start 04/02/19 at 02:30 IV Flush (NS 10 ml) 10 ml PRN PRN IV IV PROTOCOL; Start 04/03/19 at 17:00 Epoetin Jatinder-epbx (Retacrit (Esrd)) 10,000 unit AFTER EACH DIALYSIS SC Last administered on 04/10/19 15:55; Admin Dose 10,000 UNIT; Start 04/04/19 at 16:00 Miscellaneous Information 1 ea NOTE XX ; Start 04/05/19 at 11:30 Glucose (Glutose) 15 gm Q15M PRN PO DECREASED GLUCOSE; Start 04/05/19 at 11:30 Glucose (Glutose) 22.5 gm Q15M PRN PO DECREASED GLUCOSE; Start 04/05/19 at 11:30 Dextrose (D50w Syringe) 25 ml Q15M PRN IV DECREASED GLUCOSE Last administered on 04/11/19at 11:46; Admin Dose 25 ML; Start 04/05/19 at 11:30 Dextrose (D50w Syringe) 50 ml Q15M PRN IV DECREASED GLUCOSE; Start 04/05/19 at 11:30 Glucagon (Glucagen) 1 mg Q15M PRN IM DECREASED GLUCOSE; Start 04/05/19 at 11:30 Glucose (Glutose) 15 gm Q15M PRN BUCCAL DECREASED GLUCOSE; Start 04/05/19 at 11:30 Diagnostic Test (Pha) (Accu-Chek) 1 ea 02 XX Last administered on 04/06/19at 01:17; Admin Dose 1 EA; Start 04/06/19 at 02:00 Insulin Aspart (Novolog Insulin Pen) NOVOLOG *MILD* ALGORITHM WITH MEALS BEDTIME SC Last administered on 6/24/19at 20:26; Admin Dose 1 UNIT; Start 04/05/19 at 17:35 Insulin Glargine (Lantus) 20 units DAILY@2000 SC Last administered on 04/11/19at 20:21; Admin Dose 20 UNITS; Start 04/06/19 at 20:00 Ondansetron HCl (Zofran Inj) 4 mg Q6H PRN IV NAUSEA AND/OR VOMITING; Start 04/07/19 at 17:00 Dextrose 1,000 ml @ 50 mls/hr Q20H IV Last administered on 04/12/19at 12:16; Admin Dose 50 MLS/HR; Start 04/11/19 at 12:30 Metronidazole 100 ml @ 100 mls/hr Q8 IVPB Last administered on 04/12/19at 05:31; Admin Dose 100 MLS/HR; Start 04/11/19 at 15:30 Midodrine (Proamatine) 10 mg TID@0900,1300,1700 PO ; Start 04/12/19 at 09:00 JOAO RAHMAN NP Apr 12, 2019 14:47
--- NOTE | 2019-04-12 19:16 | CONS ---
Assessment/Plan Assessment/Plan Assessment/Plan (Daily) Assessment/Plan Assessment/Plan Hospital Course (Demo Recall) 83 yo male 1. Severe sepsis. -Bacteremia with possible intra-abdominal etiology 2. Ascites. 3. Pneumonia. 4. Hepatocellular cancer with carcinomatosis. -CA 199 1000 and alpha-fetoprotein was within normal limit. This cancer cell marker are more in favor of cholangiocarcinoma rather than hepatocellular cancer. 5. Diabetes mellitus. 6. Atrial fibrillation. 7. Congestive heart failure. 8. Dilated left-sided biliary system. The most probably has a cholangiocarcinoma needs stenting 9. Anemia. -positive fob, low iron, tibc, %sat, high ferritin Plan -Monitor HH and for acute GI bleeding -Pt needs ERCP but deemed too unstable per anesthesiology. No cardiac clearance given yet. Still requiring pressor support Consultation Date/Type/Reason Admit Date/Time Apr 01, 2019 at 17:43 Initial Consult Date 04/03/19 Requesting Provider: ADA RANGEL DO Date/Time of Note DATE: 04/12/19 TIME: 19:14 24 HR Interval Summary Subjective hx not possible: pt critical Exam/Review of Systems Exam Vitals Vital Signs Date Temp Pulse Resp B/P (MAP) Pulse Ox O2 O2 Flow FiO2 Time Delivery Rate 04/12/19 2.0 17:32 04/12/19 22 136/56 100 Venturi 16:03 (82) Mask 04/12/19 83 16:00 04/12/19 98.5 12:36 04/09/19 28 21:04 Intake and Output 04/11/19 04/11/19 04/12/19 1515:00 23:00 07:00 IntakeIntake Total 201.250 ml 566.250 ml 512.48 ml BalanceBalance 201.250 ml 566.250 ml 512.48 ml Psych: confusion Neck: supple, non-tender Cardiovascular: regular rate and rhythm, nl pulses Results Result Diagram: 04/12/19 0430 04/12/19 0430 Results 24hrs Laboratory Tests Test 04/11/19 20:08 04/12/19 01:47 04/12/19 04:30 04/12/19 05:22 Bedside Glucose 95 114 106 White Blood Count 17.4 H Red Blood Count 3.04 L Hemoglobin 9.1 L Hematocrit 29.5 L Mean Corpuscular 97.0 Volume Mean Corpuscular 29.9 Hemoglobin Mean Corpuscular 30.8 L Hemoglobin Concent Red Cell 17.0 H Distribution Width Platelet Count 314 # Mean Platelet Volume 10.6 H Immature 1.700 H Granulocytes % Neutrophils % 78.3 H Lymphocytes % 9.3 L Monocytes % 10.3 Eosinophils % 0.2 Basophils % 0.2 Nucleated Red Blood 0.0 Cells % Immature 0.300 H Granulocytes # Neutrophils # 13.6 H Lymphocytes # 1.6 Monocytes # 1.8 H Eosinophils # 0.0 Basophils # 0.0 Nucleated Red Blood 0.0 Cells # Sodium Level 138 Potassium Level 3.9 Chloride Level 102 Carbon Dioxide Level 27 Anion Gap 9 Blood Urea Nitrogen 40 #H Creatinine 4.28 H Est Glomerular Filtrat Rate mL/min Glucose Level 109 Calcium Level 7.8 L Phosphorus Level 5.0 H Magnesium Level 2.1 Procalcitonin 2.92 H Random Cortisol 27.7 Test 04/12/19 09:31 04/12/19 12:24 04/12/19 17:31 Bedside Glucose 89 80 110 Medications Medication Current Medications Amiodarone HCl (Cordarone) 200 mg DAILY PO Last administered on 04/11/19 11:38; Admin Dose 200 MG; Start 04/02/19 at 09:00 Aspirin (Halfprin) 81 mg DAILY PO Last administered on 04/09/19 15:21; Admin Dose 81 MG; Start 04/02/19 at 09:00 Atorvastatin Calcium (Lipitor) 20 mg QHS PO Last administered on 04/08/19 21:26; Admin Dose 20 MG; Start 04/01/19 at 21:00 Docusate Sodium (Colace) 100 mg BID PO Last administered on 04/09/19 15:21; Admin Dose 100 MG; Start 04/01/19 at 21:00 Montelukast Sodium (Singulair) 10 mg QHS PO Last administered on 04/08/19 21:26; Admin Dose 10 MG; Start 04/01/19 at 21:00 Sevelamer Carbonate (Renvela) 1.6 gm BID WITH MEALS PO Last administered on 04/09/19 17:24; Admin Dose 1.6 GM; Start 04/01/19 at 21:00 Albuterol/ Ipratropium (Duoneb) 3 ml Q2H RESP THERAPY PRN NEB SHORTNESS OF BREATH Last administered on 04/09/19 21:01; Admin Dose 3 ML; Start 04/01/19 at 21:00 Zolpidem Tartrate (Ambien) 5 mg QHS PRN PO INSOMNIA Last administered on 04/05/19 22:19; Admin Dose 5 MG; Start 04/01/19 at 21:00 Norepinephrine 250 ml @ 1.875 mls/ hr TITRATE IV Last administered on 04/12/19 00:29; Admin Dose 15 MLS/HR; Start 04/02/19 at 02:30 IV Flush (NS 10 ml) 10 ml PRN PRN IV IV PROTOCOL; Start 04/03/19 at 17:00 Epoetin Jatinder-epbx (Retacrit (Esrd)) 10,000 unit AFTER EACH DIALYSIS SC Last administered on 04/10/19 15:55; Admin Dose 10,000 UNIT; Start 04/04/19 at 16:00 Miscellaneous Information 1 ea NOTE XX ; Start 04/05/19 at 11:30 Glucose (Glutose) 15 gm Q15M PRN PO DECREASED GLUCOSE; Start 04/05/19 at 11:30 Glucose (Glutose) 22.5 gm Q15M PRN PO DECREASED GLUCOSE; Start 04/05/19 at 11:30 Dextrose (D50w Syringe) 25 ml Q15M PRN IV DECREASED GLUCOSE Last administered on 04/11/19at 11:46; Admin Dose 25 ML; Start 04/05/19 at 11:30 Dextrose (D50w Syringe) 50 ml Q15M PRN IV DECREASED GLUCOSE; Start 04/05/19 at 11:30 Glucagon (Glucagen) 1 mg Q15M PRN IM DECREASED GLUCOSE; Start 04/05/19 at 11:30 Glucose (Glutose) 15 gm Q15M PRN BUCCAL DECREASED GLUCOSE; Start 04/05/19 at 11:30 Diagnostic Test (Pha) (Accu-Chek) 1 ea 02 XX Last administered on 04/06/19at 01:17; Admin Dose 1 EA; Start 04/06/19 at 02:00 Insulin Aspart (Novolog Insulin Pen) NOVOLOG *MILD* ALGORITHM WITH MEALS BEDTIME SC Last administered on 04/10/19at 20:26; Admin Dose 1 UNIT; Start 04/05/19 at 17:35 Insulin Glargine (Lantus) 20 units DAILY@2000 SC Last administered on 04/11/19at 20:21; Admin Dose 20 UNITS; Start 04/06/19 at 20:00 Ondansetron HCl (Zofran Inj) 4 mg Q6H PRN IV NAUSEA AND/OR VOMITING; Start 04/07/19 at 17:00 Dextrose 1,000 ml @ 50 mls/hr Q20H IV Last administered on 04/12/19at 12:16; Admin Dose 50 MLS/HR; Start 04/11/19 at 12:30 Metronidazole 100 ml @ 100 mls/hr Q8 IVPB Last administered on 04/12/19at 16:01; Admin Dose 100 MLS/HR; Start 04/11/19 at 15:30 Midodrine (Proamatine) 10 mg TID@0900,1300,1700 PO ; Start 04/12/19 at 09:00 OLIVIA CANTOR MD Apr 12, 2019 19:15
[2019-04-12] MEDS: MONTELUKAST 10 MG TAB PO SCH (20:45)
[2019-04-12] MEDS: ATORVASTATIN 20 MG TAB PO SCH (20:45)
[2019-04-12] MEDS: INSULIN GLARGINE [LANTus] (100 UNITS/ML) SYG SC SCH (20:49)
[2019-04-12] MEDS: ZOLPIDEM 5 MG TAB PO PRN (21:57)
[2019-04-13] VITALS (89 sets, daily range): BP systolic 78–139; BP diastolic 33–84; PULSE 71–105; RESP 16–30
[2019-04-13] MEDS: ACCU-CHEK XX SCH (02:00)
[2019-04-13] MEDS: metroNIDAZOLE 500 MG/NS (PMX) 100 ML IVPB SCH ×3 (06:19→21:00)
[2019-04-13] MEDS: NORepinephrine 8MG/250 ML (PMX 250 ML IV SCH ×2 (06:21→19:55)
[2019-04-13] MEDS ORDERED: CALCIUM GLUCONATE 10% 2 GM in DEXTROSE 5% 100 ML IVPB ONE (06:30)
[2019-04-13] MEDS ORDERED: MAGNESIUM SULFATE 2 GM/50 ML 50 ML IVPB ONE (08:00)
[2019-04-13] MEDS ORDERED: CALCITRIOL 1 MCG INJ IV ONE (08:00)
[2019-04-13] MEDS: INSULIN ASPART [NOVOLOG] 3 ML PEN SC SCH ×4 (08:35→21:00)
[2019-04-13] MEDS: BALSAM PERU/CASTOR OIL 60 GM TUBE TOP SCH ×2 (08:36→21:00)
--- NOTE | 2019-04-13 08:42 | PN ---
DATE: 04/13/2019 SUBJECTIVE: The patient remains critically ill on pressor support. Patient remains confused but nita usable. No other events noted. No hemoptysis, hematemesis, hematochezia. OBJECTIVE: VITAL SIGNS: Blood pressure is 102/48, respirations 28, pulse 90, temperature 98.6. HEENT: Head is normocephalic. NECK: Supple. HEART: Regular rate. LUNGS: Show diminished breath sounds at the base. ABDOMEN: Soft, nontender to palpation without rebound or guarding. EXTREMITIES: Negative for clubbing, cyanosis, no edema. DERMATOLOGIC: No rashes. MUSCULOSKELETAL: No joint effusions. NEUROLOGIC: No change in exam. MEDICATIONS: Reviewed. LABORATORY DATA: Has been reviewed. IMAGING STUDIES: Have been reviewed. ASSESSMENT AND PLAN: 1. Septic shock. Etiology secondary to bacteremia, gram-negative rods. Underlying source felt to b e intraabdominal. The patient remains on pressor support. Will continue current treatment plan. Co ntinue IV hydration. Continue pressor support. Continue midodrine. Continue antibiotic therapy. 2. 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 The patient has elevated CA 19-9. Appreciate oncology, GI evaluation. Patient will eventually need ERCP if cli nically stable for tissue diagnosis. Continue to monitor. 3. Anemia. Continue to monitor hemoglobin and hematocrit levels. Continue Epogen. 4. Mineral bone disorder. The patient is hypocalcemic. We will start the patient on vitamin D anal ogs. Will give calcium gluconate and monitor closely. 5. Hypokalemia and hypomagnesemia. We will continue to monitor and replete. 6. End-stage renal disease, plan on hemodialysis tomorrow. 7. Elevated troponin. Likely non-STEMI type 2. Continue to monitor. 8. Diabetes. Continue current insulin regimen. 9. Nutrition. Patient will be placed on mechanical soft diet. Continue to work with speech therapy . The patient's family has refused NG tube placement. 10. Arrhythmia. Pacemaker. 11. Volume overload, currently stable. Continue to monitor. 12. Acute encephalopathy, etiology is toxic metabolic. 13. Lower extremity wounds. Continue wound care. Dictated By: ADA MORENO/CORNELIA Conf#: [id number] DID#: [id number] CC: DYLAN GREENE MD;*EndCC*
[2019-04-13] MEDS: SEVELAMER CARBONATE 0.8 GM PKT PO SCH ×2 (09:31→17:35)
[2019-04-13] MEDS: ASPIRIN (EC) 81 MG TAB PO SCH (09:31)
[2019-04-13] MEDS: AMIODARONE 200 MG TAB PO SCH (09:31)
[2019-04-13] MEDS: DOCUSATE SODIUM 100 MG CAP PO SCH ×2 (09:37→21:00)
[2019-04-13] MEDS: MIDODRINE 5 MG TAB PO SCH ×3 (09:37→18:28)
[2019-04-13] MEDS: DEXTROSE 5%-0.9% NACL 1,000 ML IV SCH ×2 (10:02→21:01)
--- NOTE | 2019-04-13 10:19 | CONS ---
Consult Date/Type/Reason Admit Date/Time Apr 01, 2019 at 17:43 Initial Consult Date 04/03/19 Type of Consult Pulmonary Requesting Provider: ADA RANGEL DO Date/Time of Note DATE: 04/13/19 TIME: 10:18 Subjective Patient was more alert this morning. Family was feeding him at bedside. Chest x-ray shows ongoing pulmonary edema and patient still requiring vasopressor support. Objective Vital Signs Date Temp Pulse Resp B/P (MAP) Pulse Ox O2 O2 Flow FiO2 Time Delivery Rate 04/13/19 99.9 08:22 04/13/19 97 08:00 04/13/19 28 102/48 97 Room Air 05:30 (66) 04/12/19 2.0 20:00 04/09/19 21:04 Intake and Output 04/12/19 04/12/19 04/13/19 1515:00 23:00 07:00 IntakeIntake Total 497.495 ml 644.350 ml 483.12 ml OutputOutput Total 2500 ml BalanceBalance -2002.505 ml 644.350 ml 483.12 ml Exam GENERAL: Elderly appearing gentleman on nasal cannula O2. VITAL SIGNS: per chart NECK: Supple. No JVD or lymphadenopathy. CARDIAC EXAM: S1, S2. No added sounds or murmurs. CHEST: clear bilaterally, No added sounds, rales or wheezes ABDOMEN: Soft, nontender. No guarding or rebound. EXTREMITIES: No cyanosis, clubbing or edema. NEUROLOGIC: Generalized weakness. No focal deficits Vent Setting Fraction of Inspired Oxygen pe: 28 Results/Medications Result Diagram: 04/13/19 0440 04/13/19 0440 Results 24 hrs Laboratory Tests Test 04/12/19 12:24 04/12/19 17:31 04/12/19 20:44 04/13/19 02:31 Bedside Glucose 80 110 110 104 Test 04/13/19 04:40 04/13/19 08:35 White Blood Count 13.4 #H Red Blood Count 2.77 L Hemoglobin 8.3 L Hematocrit 27.2 L Mean Corpuscular 98.2 Volume Mean Corpuscular 30.0 Hemoglobin Mean Corpuscular 30.5 L Hemoglobin Concent Red Cell 17.2 H Distribution Width Platelet Count 308 Mean Platelet Volume 10.9 H Immature 0.800 H Granulocytes % Neutrophils % 75.8 Lymphocytes % 12.1 L Monocytes % 10.7 Eosinophils % 0.2 Basophils % 0.4 Nucleated Red Blood 0.0 Cells % Immature 0.110 H Granulocytes # Neutrophils # 10.2 H Lymphocytes # 1.6 Monocytes # 1.4 H Eosinophils # 0.0 Basophils # 0.1 Nucleated Red Blood 0.0 Cells # Sodium Level 144 Potassium Level 3.1 L Chloride Level 112 H Carbon Dioxide Level 22 Anion Gap 10 Blood Urea Nitrogen 22 #H Creatinine 2.81 #H Est Glomerular Filtrat Rate mL/min Glucose Level 70 Calcium Level 5.9 *L Phosphorus Level 3.1 Magnesium Level 1.6 L Bedside Glucose 95 Medications Current Medications Amiodarone HCl (Cordarone) 200 mg DAILY PO Last administered on 04/13/19 09:31; Admin Dose 200 MG; Start 04/02/19 at 09:00 Aspirin (Halfprin) 81 mg DAILY PO Last administered on 04/13/19 09:31; Admin Dose 81 MG; Start 04/02/19 at 09:00 Atorvastatin Calcium (Lipitor) 20 mg QHS PO Last administered on 04/12/19 20:45; Admin Dose 20 MG; Start 04/01/19 at 21:00 Docusate Sodium (Colace) 100 mg BID PO Last administered on 04/12/19 20:45; Admin Dose 100 MG; Start 04/01/19 at 21:00 Montelukast Sodium (Singulair) 10 mg QHS PO Last administered on 04/12/19 20:45; Admin Dose 10 MG; Start 04/01/19 at 21:00 Sevelamer Carbonate (Renvela) 1.6 gm BID WITH MEALS PO Last administered on 04/13/19 09:31; Admin Dose 1.6 GM; Start 04/01/19 at 21:00 Albuterol/ Ipratropium (Duoneb) 3 ml Q2H RESP THERAPY PRN NEB SHORTNESS OF BREATH Last administered on 04/09/19 21:01; Admin Dose 3 ML; Start 04/01/19 at 21:00 Zolpidem Tartrate (Ambien) 5 mg QHS PRN PO INSOMNIA Last administered on 04/12/19 21:57; Admin Dose 5 MG; Start 04/01/19 at 21:00 Norepinephrine 250 ml @ 1.875 mls/ hr TITRATE IV Last administered on 04/13/19 06:21; Admin Dose 20.625 MLS/HR; Start 04/02/19 at 02:30 IV Flush (NS 10 ml) 10 ml PRN PRN IV IV PROTOCOL; Start 04/03/19 at 17:00 Epoetin Jatinder-epbx (Retacrit (Esrd)) 10,000 unit AFTER EACH DIALYSIS SC Last administered on 04/10/19at 15:55; Admin Dose 10,000 UNIT; Start 04/04/19 at 16:00 Miscellaneous Information 1 ea NOTE XX ; Start 04/05/19 at 11:30 Glucose (Glutose) 15 gm Q15M PRN PO DECREASED GLUCOSE; Start 04/05/19 at 11:30 Glucose (Glutose) 22.5 gm Q15M PRN PO DECREASED GLUCOSE; Start 04/05/19 at 11:30 Dextrose (D50w Syringe) 25 ml Q15M PRN IV DECREASED GLUCOSE Last administered on 04/11/19at 11:46; Admin Dose 25 ML; Start 04/05/19 at 11:30 Dextrose (D50w Syringe) 50 ml Q15M PRN IV DECREASED GLUCOSE; Start 04/05/19 at 11:30 Glucagon (Glucagen) 1 mg Q15M PRN IM DECREASED GLUCOSE; Start 04/05/19 at 11:30 Glucose (Glutose) 15 gm Q15M PRN BUCCAL DECREASED GLUCOSE; Start 04/05/19 at 11:30 Diagnostic Test (Pha) (Accu-Chek) 1 ea 02 XX Last administered on 04/06/19at 01:17; Admin Dose 1 EA; Start 04/06/19 at 02:00 Insulin Aspart (Novolog Insulin Pen) NOVOLOG *MILD* ALGORITHM WITH MEALS BEDTIME SC Last administered on 04/10/19 20:26; Admin Dose 1 UNIT; Start 04/05/19 at 17:35 Insulin Glargine (Lantus) 20 units DAILY@2000 SC Last administered on 04/12/19at 20:49; Admin Dose 20 UNITS; Start 04/06/19 at 20:00 Ondansetron HCl (Zofran Inj) 4 mg Q6H PRN IV NAUSEA AND/OR VOMITING; Start 04/07/19 at 17:00 Metronidazole 100 ml @ 100 mls/hr Q8 IVPB Last administered on 6/27/19at 06:19; Admin Dose 100 MLS/HR; Start 04/11/19 at 15:30 Midodrine (Proamatine) 10 mg TID@0900,1300,1700 PO Last administered on 04/13/19at 09:37; Admin Dose 10 MG; Start 04/12/19 at 09:00 Potassium Chloride 100 ml @ 50 mls/hr Q2H IVPB ; Start 04/13/19 at 08:00; Stop 04/13/19 at 11:59 Dextrose/Sodium Chloride 1,000 ml @ 75 mls/hr [id number] IV Last administered on 04/13/19at 10:02; Admin Dose 75 MLS/HR; Start 04/13/19 at 08:00 Assessment/Plan Hospital Course (Demo Recall) Assessment 1. Septic shock requiring vasopressor support blood cultures positive for Bacteroides ongoing vasopressor requirement 2. History of end-stage renal failure on hemodialysis 3. History of hepatocellular CA 4. History of arrhythmia with pacemaker 5. Diabetes mellitus 6. Dysphagia remains risk of aspiration. 7. Encephalopathy toxic metabolic, appears to be slowly improving Plan 1. Continue supplemental O2 as needed 2. Hemodialysis as tolerated. 3. Continue antibiotics per ID 4. Aspiration precautions 5. Titrate vasopressors to keep map greater than 65, check cortisol level. 6. Speech therapy recommendations Critical care time 40 minutes Consider palliative care evaluation. Family had declined nasogastric and G tube. Discussed with family this morning they stated that they would request patient be DNR/DNI. 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 TRAE TRAVIS MD[facility] Apr 13, 2019 10:19
--- NOTE | 2019-04-13 10:24 | CONS ---
Consult Date/Type/Reason Admit Date/Time Apr 01, 2019 at 17:43 Initial Consult Date 04/03/19 Type of Consultation: cv Requesting Provider: ADA RANGEL DO Date/Time of Note DATE: 04/13/19 TIME: 10:22 Subjective Cardiology follow-up progress note Subjective: Discussed with the staff. Telemetry was reviewed. Patient has remained in sinus rhythm./ demand pacing d/w Dr Curtis Patient remains in ICU and hypotensive and remains on levophed drip No report of any chest pain or pressure he denies PND orthopnea to me Objective: General: no acute distress HEENT: NC/AT. pupils are equal. round. NECK: no stridor. CV: RRR. systolic murmur; no gallop or rubs. PULM: no wheezing or rhonchi. GI: SOFT, NT, ND, no rebound or guarding Extremity: + B/L LE edema. no clubbing. neuro: awake Psych: calm rectal: deferred EKG shows ventricular paced rhythm Chest x-ray done 03/24/2019 shows: 1. New left-sided PICC in proximal SVC. 2. Persistent small left-sided pleural effusion with left lung base atelectasis/infiltrate. 3. Persistent patchy opacity of the right lung base. 4. Persistent cardiomegaly with mild vascular congestion CT 1. Again noted is severe dilatation of left intrahepatic biliary ducts. No gross evidence of hepatic mass is seen, though sensitivity is markedly limited without IV contrast. Findings remain concerning for obstructive mass in the central left hepatic lobe, as described in the prior CT report. 2. Findings compatible with peritoneal carcinomatosis. Moderate ascites, grossly stable. 3. Stable mild cardiomegaly. Coronary arterial and aortoiliac atherosclerotic calcifications. 4. Mild to moderate bilateral pleural effusions, grossly stable. Bibasilar atelectasis. 5. Cholelithiasis, without evidence for cholecystitis. 6. Chronic bilateral renal cortical thinning and atrophy, unchanged. Objective Vitals Vital Signs Date Temp Pulse Resp B/P (MAP) Pulse Ox O2 O2 Flow FiO2 Time Delivery Rate 04/13/19 99.9 08:22 04/13/19 97 08:00 04/13/19 28 102/48 97 Room Air 05:30 (66) 04/12/19 2.0 20:00 04/09/19 28 21:04 Intake and Output 04/12/19 04/12/19 04/13/19 1515:00 23:00 07:00 IntakeIntake Total 497.495 ml 644.350 ml 483.12 ml OutputOutput Total 2500 ml BalanceBalance -2002.505 ml 644.350 ml 483.12 ml Results/Medications Result Diagram: 04/13/19 0440 04/13/19 0440 Results 24 hrs Laboratory Tests Test 04/12/19 12:24 04/12/19 17:31 04/12/19 20:44 04/13/19 02:31 Bedside Glucose 80 110 110 104 Test 04/13/19 04:40 04/13/19 08:35 White Blood Count 13.4 #H Red Blood Count 2.77 L Hemoglobin 8.3 L Hematocrit 27.2 L Mean Corpuscular 98.2 Volume Mean Corpuscular 30.0 Hemoglobin Mean Corpuscular 30.5 L Hemoglobin Concent Red Cell 17.2 H Distribution Width Platelet Count 308 Mean Platelet Volume 10.9 H Immature 0.800 H Granulocytes % Neutrophils % 75.8 Lymphocytes % 12.1 L Monocytes % 10.7 Eosinophils % 0.2 Basophils % 0.4 Nucleated Red Blood 0.0 Cells % Immature 0.110 H Granulocytes # Neutrophils # 10.2 H Lymphocytes # 1.6 Monocytes # 1.4 H Eosinophils # 0.0 Basophils # 0.1 Nucleated Red Blood 0.0 Cells # Sodium Level 144 Potassium Level 3.1 L Chloride Level 112 H Carbon Dioxide Level 22 Anion Gap 10 Blood Urea Nitrogen 22 #H Creatinine 2.81 #H Est Glomerular Filtrat Rate mL/min Glucose Level 70 Calcium Level 5.9 *L Phosphorus Level 3.1 Magnesium Level 1.6 L Bedside Glucose 95 Home Meds Reported Medications Docusate Sodium* (Docusate Sodium*) 100 Mg Capsule, 100 MG PO BID, #60 CAP 04/01/19 Metoprolol Succinate* (Toprol XL*) 25 Mg Tab.sr.24h, 25 MG PO DAILY, #30 TAB 04/01/19 Aspirin* (Aspirin* EC) 81 Mg Tablet.dr, 81 MG PO DAILY, TAB 04/01/19 Fenofibrate, Micronized (Fenofibrate) 134 Mg Capsule, 134 MG PO DAILY, CAP 04/01/19 Sevelamer Carbonate* (Renvela*) 800 Mg Tablet, 1.6 GM PO BID, TAB 04/01/19 Amiodarone Hcl* (Amiodarone Hcl*) 200 Mg Tablet, 200 MG PO DAILY, #30 TAB TAKE Q TU,TH,SAT WITH DIALYSIS 04/01/19 Montelukast Sodium* (Montelukast Sodium*) 10 Mg Tablet, 10 MG PO QHS, #30 TAB 04/01/19 [Nephro-Elieser] No Conflict Check, 1 TAB PO DAILY 04/01/19 Sacubitril/Valsartan (Entresto 24 mg-26 mg Tablet) 1 Each Tablet, 1 EACH PO BID, TAB 04/01/19 Midodrine* (Midodrine*) 5 Mg Tablet, 5 MG PO DAILY, TAB 04/01/19 Furosemide* (Furosemide*) 40 Mg Tablet, 40 MG PO DAILY, TAB 04/01/19 Atorvastatin Calcium* (Atorvastatin Calcium*) 20 Mg Tablet, 20 MG PO QHS, #30 TAB 04/01/19 Medications Current Medications Amiodarone HCl (Cordarone) 200 mg DAILY PO Last administered on 04/13/19 09:31; Admin Dose 200 MG; Start 04/02/19 at 09:00 Aspirin (Halfprin) 81 mg DAILY PO Last administered on 04/13/19 09:31; Admin Dose 81 MG; Start 04/02/19 at 09:00 Atorvastatin Calcium (Lipitor) 20 mg QHS PO Last administered on 04/12/19at 20:45; Admin Dose 20 MG; Start 04/01/19 at 21:00 Docusate Sodium (Colace) 100 mg BID PO Last administered on 04/12/19at 20:45; Admin Dose 100 MG; Start 04/01/19 at 21:00 Montelukast Sodium (Singulair) 10 mg QHS PO Last administered on 04/12/19at 20:45; Admin Dose 10 MG; Start 04/01/19 at 21:00 Sevelamer Carbonate (Renvela) 1.6 gm BID WITH MEALS PO Last administered on 04/13/19 09:31; Admin Dose 1.6 GM; Start 04/01/19 at 21:00 Albuterol/ Ipratropium (Duoneb) 3 ml Q2H RESP THERAPY PRN NEB SHORTNESS OF B REATH Last administered on 04/09/19 21:01; Admin Dose 3 ML; Start 04/01/19 at 21:00 Zolpidem Tartrate (Ambien) 5 mg QHS PRN PO INSOMNIA Last administered on 04/12/19 21:57; Admin Dose 5 MG; Start 04/01/19 at 21:00 Norepinephrine 250 ml @ 1.875 mls/ hr TITRATE IV Last administered on 04/13/19 06:21; Admin Dose 20.625 MLS/HR; Start 04/02/19 at 02:30 IV Flush (NS 10 ml) 10 ml PRN PRN IV IV PROTOCOL; Start 04/03/19 at 17:00 Epoetin Jatinder-epbx (Retacrit (Esrd)) 10,000 unit AFTER EACH DIALYSIS SC Last administered on 04/10/19 15:55; Admin Dose 10,000 UNIT; Start 04/04/19 at 16:00 Miscellaneous Information 1 ea NOTE XX ; Start 04/05/19 at 11:30 Glucose (Glutose) 15 gm Q15M PRN PO DECREASED GLUCOSE; Start 04/05/19 at 11:30 Glucose (Glutose) 22.5 gm Q15M PRN PO DECREASED GLUCOSE; Start 04/05/19 at 11:30 Dextrose (D50w Syringe) 25 ml Q15M PRN IV DECREASED GLUCOSE Last administered on 04/11/19 11:46; Admin Dose 25 ML; Start 04/05/19 at 11:30 Dextrose (D50w Syringe) 50 ml Q15M PRN IV DECREASED GLUCOSE; Start 04/05/19 at 11:30 Glucagon (Glucagen) 1 mg Q15M PRN IM DECREASED GLUCOSE; Start 04/05/19 at 11:30 Glucose (Glutose) 15 gm Q15M PRN BUCCAL DECREASED GLUCOSE; Start 04/05/19 at 11:30 Diagnostic Test (Pha) (Accu-Chek) 1 ea 02 XX Last administered on 04/06/19at 01:17; Admin Dose 1 EA; Start 04/06/19 at 02:00 Insulin Aspart (Novolog Insulin Pen) NOVOLOG *MILD* ALGORITHM WITH MEALS BEDTIME SC Last administered on 04/10/19 20:26; Admin Dose 1 UNIT; Start 04/05/19 at 17:35 Insulin Glargine (Lantus) 20 units DAILY@2000 SC Last administered on 04/12/19at 20:49; Admin Dose 20 UNITS; Start 04/06/19 at 20:00 Ondansetron HCl (Zofran Inj) 4 mg Q6H PRN IV NAUSEA AND/OR VOMITING; Start 04/07/19 at 17:00 Metronidazole 100 ml @ 100 mls/hr Q8 IVPB Last administered on 04/13/19at 06:19; Admin Dose 100 MLS/HR; Start 04/11/19 at 15:30 Midodrine (Proamatine) 10 mg TID@0900,1300,1700 PO Last administered on 04/13/19at 09:37; Admin Dose 10 MG; Start 04/12/19 at 09:00 Potassium Chloride 100 ml @ 50 mls/hr Q2H IVPB ; Start 04/13/19 at 08:00; Stop 04/13/19 at 11:59 Dextrose/Sodium Chloride 1,000 ml @ 75 mls/hr [id number] IV Last administered on 04/13/19at 10:02; Admin Dose 75 MLS/HR; Start 04/13/19 at 08:00 Assessment/Plan Hospital Course (Demo Recall) Mildly abnormal troponin secondary to sepsis renal failure etc. Sepsis/pneumonia GNR bacteremia/ septic shock Pneumonia History of hepatocellular cancer Renal failure dialysis dependent History of arrhythmia probably sick sinus syndrome versus heart block status post permanent pacemaker Encephalopathy Paroxysmal atrial fibrillation Recommendations: pt is NPO now. swallow eval to see if he can eat aspirin as long as ok with GI and no active bleeding is noted Antibiotic management as per internal medicine and consultants Continue to be hemodialysis as tolerated Unable to tolerate beta-damian due to his low blood pressure levophed as needed f/u GI consultation rec cortisol level in AM was wnl. Pacemaker card reviewed. pacemaker is an MRI compatible and MRI can be done . n eed to call [employer] rep to change the pacemaker setting right before and after the MRCP. PLEASE CONTACT [email or web address] rep (Rubio at [phone]) to arrange for setting change fluid management as per renal Thank you for this referral. We will continue to follow along with you JOSE D SOLOMON MD [facility] JOSE D SOLOMON MD Apr 13, 2019 10:24
[2019-04-13] MEDS: POTASSIUM CHLORIDE 100 ML IVPB SCH ×2 (11:13→14:04)
--- NOTE | 2019-04-13 11:29 | CONS ---
Assessment/Plan Assessment/Plan Assessment/Plan (Daily) Assessment/Plan Hospital Course (Demo Recall) 83 yo male 1. Severe sepsis. -Bacteremia with possible intra-abdominal etiology 2. Ascites. 3. Pneumonia. 4. Hepatocellular cancer with carcinomatosis. -CA 199 1000 and alpha-fetoprotein was within normal limit. This cancer cell marker are more in favor of cholangiocarcinoma rather than hepatocellular cancer. 5. Diabetes mellitus. 6. Atrial fibrillation. 7. Congestive heart failure. 8. Dilated left-sided biliary system. The most probably has a cholangiocarcinoma needs stenting 9. Anemia. -positive fob, low iron, tibc, %sat, high ferritin Plan -Monitor HH and for acute GI bleeding -Pt needs ERCP but deemed too unstable per anesthesiology. No cardiac clearance given yet. Still requiring pressor support Patient is still on pressor support and has a volume overload. Needs dialysis and fluid to be removed as tolerated by patient Consultation Date/Type/Reason Admit Date/Time Apr 01, 2019 at 17:43 Initial Consult Date 04/03/19 Requesting Provider: ADA RANGEL DO Date/Time of Note DATE: 04/13/19 TIME: 11:27 24 HR Interval Summary Constitutional: no complaints, requiring O2 Exam/Review of Systems Exam Vitals Vital Signs Date Temp Pulse Resp B/P (MAP) Pulse Ox O2 O2 Flow FiO2 Time Delivery Rate 04/13/19 99.9 08:22 04/13/19 97 08:00 04/13/19 28 102/48 97 Room Air 05:30 (66) 04/12/19 2.0 20:00 04/09/19 28 21:04 Intake and Output 04/12/19 04/12/19 04/13/19 1515:00 23:00 07:00 IntakeIntake Total 497.495 ml 644.350 ml 483.12 ml OutputOutput Total 2500 ml BalanceBalance -2002.505 ml 644.350 ml 483.12 ml Respiratory: diminished breath sounds Cardiovascular: regular rate and rhythm, nl pulses Extremities: edema Neurological: CANARY RAISER II-XII intact, nl mental status, nl speech, nl strength Results Result Diagram: 04/13/19 0440 04/13/19 0440 Results 24hrs Laboratory Tests Test 04/12/19 12:24 04/12/19 17:31 04/12/19 20:44 04/13/19 02:31 Bedside Glucose 80 110 110 104 Test 04/13/19 04:40 04/13/19 08:35 White Blood Count 13.4 #H Red Blood Count 2.77 L Hemoglobin 8.3 L Hematocrit 27.2 L Mean Corpuscular 98.2 Volume Mean Corpuscular 30.0 Hemoglobin Mean Corpuscular 30.5 L Hemoglobin Concent Red Cell 17.2 H Distribution Width Platelet Count 308 Mean Platelet Volume 10.9 H Immature 0.800 H Granulocytes % Neutrophils % 75.8 Lymphocytes % 12.1 L Monocytes % 10.7 Eosinophils % 0.2 Basophils % 0.4 Nucleated Red Blood 0.0 Cells % Immature 0.110 H Granulocytes # Neutrophils # 10.2 H Lymphocytes # 1.6 Monocytes # 1.4 H Eosinophils # 0.0 Basophils # 0.1 Nucleated Red Blood 0.0 Cells # Sodium Level 144 Potassium Level 3.1 L Chloride Level 112 H Carbon Dioxide Level 22 Anion Gap 10 Blood Urea Nitrogen 22 #H Creatinine 2.81 #H Est Glomerular Filtrat Rate mL/min Glucose Level 70 Calcium Level 5.9 *L Phosphorus Level 3.1 Magnesium Level 1.6 L Bedside Glucose 95 Medications Medication Current Medications Amiodarone HCl (Cordarone) 200 mg DAILY PO Last administered on 04/13/19 09:31; Admin Dose 200 MG; Start 04/02/19 at 09:00 Aspirin (Halfprin) 81 mg DAILY PO Last administered on 04/13/19 09:31; Admin Dose 81 MG; Start 04/02/19 at 09:00 Atorvastatin Calcium (Lipitor) 20 mg QHS PO Last administered on 04/12/19 20:45; Admin Dose 20 MG; Start 04/01/19 at 21:00 Docusate Sodium (Colace) 100 mg BID PO Last administered on 04/12/19 20:45; Admin Dose 100 MG; Start 04/01/19 at 21:00 Montelukast Sodium (Singulair) 10 mg QHS PO Last administered on 04/12/19 20:45; Admin Dose 10 MG; Start 04/01/19 at 21:00 Sevelamer Carbonate (Renvela) 1.6 gm BID WITH MEALS PO Last administered on 04/13/19 09:31; Admin Dose 1.6 GM; Start 04/01/19 at 21:00 Albuterol/ Ipratropium (Duoneb) 3 ml Q2H RESP THERAPY PRN NEB SHORTNESS OF BREATH Last administered on 04/09/19 21:01; Admin Dose 3 ML; Start 04/01/19 at 21:00 Zolpidem Tartrate (Ambien) 5 mg QHS PRN PO INSOMNIA Last administered on 04/12/19 21:57; Admin Dose 5 MG; Start 04/01/19 at 21:00 Norepinephrine 250 ml @ 1.875 mls/ hr TITRATE IV Last administered on 04/13/19 06:21; Admin Dose 20.625 MLS/HR; Start 04/02/19 at 02:30 IV Flush (NS 10 ml) 10 ml PRN PRN IV IV PROTOCOL; Start 04/03/19 at 17:00 Epoetin Jatinder-epbx (Retacrit (Esrd)) 10,000 unit AFTER EACH DIALYSIS SC Last administered on 04/10/19 15:55; Admin Dose 10,000 UNIT; Start 04/04/19 at 16:00 Miscellaneous Information 1 ea NOTE XX ; Start 04/05/19 at 11:30 Glucose (Glutose) 15 gm Q15M PRN PO DECREASED GLUCOSE; Start 04/05/19 at 11:30 Glucose (Glutose) 22.5 gm Q15M PRN PO DECREASED GLUCOSE; Start 04/05/19 at 11:30 Dextrose (D50w Syringe) 25 ml Q15M PRN IV DECREASED GLUCOSE Last administered on 04/11/19 11:46; Admin Dose 25 ML; Start 04/05/19 at 11:30 Dextrose (D50w Syringe) 50 ml Q15M PRN IV DECREASED GLUCOSE; Start 04/05/19 at 11:30 Glucagon (Glucagen) 1 mg Q15M PRN IM DECREASED GLUCOSE; Start 04/05/19 at 11:30 Glucose (Glutose) 15 gm Q15M PRN BUCCAL DECREASED GLUCOSE; Start 04/05/19 at 11:30 Diagnostic Test (Pha) (Accu-Chek) 1 ea 02 XX Last administered on 04/06/19at 01:17; Admin Dose 1 EA; Start 04/06/19 at 02:00 Insulin Aspart (Novolog Insulin Pen) NOVOLOG *MILD* ALGORITHM WITH MEALS BEDTIME SC Last administered on 04/10/19 20:26; Admin Dose 1 UNIT; Start 04/05/19 at 17:35 Insulin Glargine (Lantus) 20 units DAILY@2000 SC Last administered on 04/12/19at 20:49; Admin Dose 20 UNITS; Start 04/06/19 at 20:00 Ondansetron HCl (Zofran Inj) 4 mg Q6H PRN IV NAUSEA AND/OR VOMITING; Start 04/07/19 at 17:00 Metronidazole 100 ml @ 100 mls/hr Q8 IVPB Last administered on 04/13/19at 06:19; Admin Dose 100 MLS/HR; Start 04/11/19 at 15:30 Midodrine (Proamatine) 10 mg TID@0900,1300,1700 PO Last administered on 04/13/19at 09:37; Admin Dose 10 MG; Start 04/12/19 at 09:00 Potassium Chloride 100 ml @ 50 mls/hr Q2H IVPB Last administered on 04/13/19at 11:13; Admin Dose 50 MLS/HR; Start 04/13/19 at 08:00; Stop 04/13/19 at 11:59 Dextrose/Sodium Chloride 1,000 ml @ 75 mls/hr [id number] IV Last administered on 04/13/19at 10:02; Admin Dose 75 MLS/HR; Start 04/13/19 at 08:00 OLIVIA CANTOR MD Apr 13, 2019 11:29
--- NOTE | 2019-04-13 12:31 | CONS ---
Assessment/Plan Assessment/Plan Hospital Course (Demo Recall) No acute changes patient looks comfortable no fevers overnight still on Levophed drip T-max 99.9. WBC 13.4 platelets 308 neutrophils 75.8 Indwelling's: PICC line and upper extremity fistula Antimicrobials: Flagyl Microbiology: Blood culture on admission grew Bacteroides fragilis, repeat cx neg Physical examination: This is an obese well-developed chronically ill elderly Pashto man who is in no distress. Head atraumatic normocephalic neck is supple chest rise symmetrical breath sounds diminished bases. Heart: S1-S2. Tachycardic abdomen soft obese bowel sounds hypoactive extremities without cyanosis, trace edema Assessment: 1. Sepsis with shock 2. Bacteremia ? source==>likely intraabdominal 3. End-stage renal disease, hemodialysis dependent 4. Recently diagnosed hepatocellular carcinoma, poss obstructing mass and peritoneal carcinomatosis 5. Coronary artery disease status post permanent pacemaker 6. Diabetes 7. Atrial fibrillation Plan: Remains unchanged, continue antibiotics Consultation Date/Type/Reason Admit Date/Time Apr 01, 2019 at 17:43 Initial Consult Date 04/03/19 Type of Consult id Requesting Provider: ADA RANGEL DO Date/Time of Note DATE: 04/13/19 TIME: 12:30 Exam/Review of Systems Exam Vitals Vital Signs Date Temp Pulse Resp B/P (MAP) Pulse Ox O2 O2 Flow FiO2 Time Delivery Rate 04/13/19 99.9 08:22 04/13/19 97 08:00 04/13/19 28 102/48 97 Room Air 05:30 (66) 04/12/19 2.0 20:00 04/09/19 28 21:04 Intake and Output 04/12/19 04/12/19 04/13/19 1515:00 23:00 07:00 IntakeIntake Total 497.495 ml 644.350 ml 553.745 ml OutputOutput Total 2500 ml BalanceBalance -2002.505 ml 644.350 ml 553.745 ml Results Result Diagram: 04/13/190 04/13/190 Results 24hrs Laboratory Tests Test 04/12/19 17:31 04/12/19 20:44 04/13/19 02:31 04/13/19 04:40 Bedside Glucose 110 110 104 White Blood Count 13.4 #H Red Blood Count 2.77 L Hemoglobin 8.3 L Hematocrit 27.2 L Mean Corpuscular 98.2 Volume Mean Corpuscular 30.0 Hemoglobin Mean Corpuscular 30.5 L Hemoglobin Concent Red Cell 17.2 H Distribution Width Platelet Count 308 Mean Platelet Volume 10.9 H Immature 0.800 H Granulocytes % Neutrophils % 75.8 Lymphocytes % 12.1 L Monocytes % 10.7 Eosinophils % 0.2 Basophils % 0.4 Nucleated Red Blood 0.0 Cells % Immature 0.110 H Granulocytes # Neutrophils # 10.2 H Lymphocytes # 1.6 Monocytes # 1.4 H Eosinophils # 0.0 Basophils # 0.1 Nucleated Red Blood 0.0 Cells # Sodium Level 144 Potassium Level 3.1 L Chloride Level 112 H Carbon Dioxide Level 22 Anion Gap 10 Blood Urea Nitrogen 22 #H Creatinine 2.81 #H Est Glomerular Filtrat Rate mL/min Glucose Level 70 Calcium Level 5.9 *L Phosphorus Level 3.1 Magnesium Level 1.6 L Test 04/13/19 08:35 Bedside Glucose 95 Medications Medication Current Medications Amiodarone HCl (Cordarone) 200 mg DAILY PO Last administered on 04/13/19 09:31; Admin Dose 200 MG; Start 04/02/19 at 09:00 Aspirin (Halfprin) 81 mg DAILY PO Last administered on 04/13/19 09:31; Admin Dose 81 MG; Start 04/02/19 at 09:00 Atorvastatin Calcium (Lipitor) 20 mg QHS PO Last administered on 04/12/19 20:45; Admin Dose 20 MG; Start 04/01/19 at 21:00 Docusate Sodium (Colace) 100 mg BID PO Last administered on 04/12/19 20:45; Admin Dose 100 MG; Start 04/01/19 at 21:00 Montelukast Sodium (Singulair) 10 mg QHS PO Last administered on 04/12/19 20:45; Admin Dose 10 MG; Start 04/01/19 at 21:00 Sevelamer Carbonate (Renvela) 1.6 gm BID WITH MEALS PO Last administered on 04/13/19 09:31; Admin Dose 1.6 GM; Start 04/01/19 at 21:00 Albuterol/ Ipratropium (Duoneb) 3 ml Q2H RESP THERAPY PRN NEB SHORTNESS OF BREATH Last administered on 04/09/19 21:01; Admin Dose 3 ML; Start 04/01/19 at 21:00 Zolpidem Tartrate (Ambien) 5 mg QHS PRN PO INSOMNIA Last administered on 04/12/19at 21:57; Admin Dose 5 MG; Start 04/01/19 at 21:00 Norepinephrine 250 ml @ 1.875 mls/ hr TITRATE IV Last administered on 9at 06:21; Admin Dose 20.625 MLS/HR; Start 04/02/19 at 02:30 IV Flush (NS 10 ml) 10 ml PRN PRN IV IV PROTOCOL; Start 04/03/19 at 17:00 Epoetin Jatinder-epbx (Retacrit (Esrd)) 10,000 unit AFTER EACH DIALYSIS SC Last administered on 04/10/19 15:55; Admin Dose 10,000 UNIT; Start 04/04/19 at 16:00 Miscellaneous Information 1 ea NOTE XX ; Start 04/05/19 at 11:30 Glucose (Glutose) 15 gm Q15M PRN PO DECREASED GLUCOSE; Start 04/05/19 at 11:30 Glucose (Glutose) 22.5 gm Q15M PRN PO DECREASED GLUCOSE; Start 04/05/19 at 11:30 Dextrose (D50w Syringe) 25 ml Q15M PRN IV DECREASED GLUCOSE Last administered on 04/11/19at 11:46; Admin Dose 25 ML; Start 04/05/19 at 11:30 Dextrose (D50w Syringe) 50 ml Q15M PRN IV DECREASED GLUCOSE; Start 04/05/19 at 11:30 Glucagon (Glucagen) 1 mg Q15M PRN IM DECREASED GLUCOSE; Start 04/05/19 at 11:30 Glucose (Glutose) 15 gm Q15M PRN BUCCAL DECREASED GLUCOSE; Start 04/05/19 at 11:30 Diagnostic Test (Pha) (Accu-Chek) 1 ea 02 XX Last administered on 04/06/19at 01:17; Admin Dose 1 EA; Start 04/06/19 at 02:00 Insulin Aspart (Novolog Insulin Pen) NOVOLOG *MILD* ALGORITHM WITH MEALS BEDTIME SC Last administered on 04/10/19 20:26; Admin Dose 1 UNIT; Start 04/05/19 at 17:35 Insulin Glargine (Lantus) 20 units DAILY@2000 SC Last administered on 04/12/19at 20:49; Admin Dose 20 UNITS; Start 04/06/19 at 20:00 Ondansetron HCl (Zofran Inj) 4 mg Q6H PRN IV NAUSEA AND/OR VOMITING; Start 04/07/19 at 17:00 Metronidazole 100 ml @ 100 mls/hr Q8 IVPB Last administered on 04/13/19at 06:19; Admin Dose 100 MLS/HR; Start 04/11/19 at 15:30 Midodrine (Proamatine) 10 mg TID@0900,1300,1700 PO Last administered on 04/13/19at 09:37; Admin Dose 10 MG; Start 04/12/19 at 09:00 Dextrose/Sodium Chloride 1,000 ml @ 75 mls/hr [id number] IV Last administered on 04/13/19at 10:02; Admin Dose 75 MLS/HR; Start 04/13/19 at 08:00 JOAO RAHMAN NP Apr 13, 2019 12:31
[2019-04-13] MEDS: INSULIN GLARGINE [LANTus] (100 UNITS/ML) SYG SC SCH (20:59)
[2019-04-13] MEDS: ATORVASTATIN 20 MG TAB PO SCH (21:00)
[2019-04-13] MEDS: MONTELUKAST 10 MG TAB PO SCH (21:00)
[2019-04-13] MEDS: ZOLPIDEM 5 MG TAB PO PRN (21:58)
[2019-04-14] VITALS (102 sets, daily range): BP systolic 71–128; BP diastolic 34–84; PULSE 72–105; RESP 14–40
[2019-04-14] MEDS: ACCU-CHEK XX SCH (01:31)
[2019-04-14] MEDS: metroNIDAZOLE 500 MG/NS (PMX) 100 ML IVPB SCH ×3 (05:26→21:47)
--- NOTE | 2019-04-14 07:06 | CONS ---
Assessment/Plan Assessment/Plan Assessment/Plan (Daily) Patient with history of renal cell carcinoma Past medical history of liver cancer Congestive heart failure End-stage renal disease on hemodialysis Fluid and electrolyte abnormalities Encephalopathy secondary to the above Family conference scheduled this morning at 0900 hrs. Consultation Date/Type/Reason Admit Date/Time Apr 01, 2019 at 17:43 Date/Time of Note DATE: 04/14/19 TIME: 07:05 Hx of Present Illness Asked to see this 83-year-old gentleman who is in the intensive care unit [facility] and septic shock. Patient also has history of end-stage renal disease and newly diagnosed hepatocellular carcinoma. Patient is a non- historian he is encephalopathic being seen by multiple different consultants he is on hemodialysis in palliative care consultation has been requested for goals of care. Once again patient is a non-historian. According to medical records patient has a past medical history of liver cancer, chronic anemia chronic atrial fibrillation and history of pacemaker implant. Family history of congestive heart failure. Patient's critical care nurse has been kind enough to call family members there is a family conference to be scheduled this morning at 0900 hrs. Past Medical History Home Meds Reported Medications Docusate Sodium* (Docusate Sodium*) 100 Mg Capsule, 100 MG PO BID, #60 CAP 04/01/19 Metoprolol Succinate* (Toprol XL*) 25 Mg Tab.sr.24h, 25 MG PO DAILY, #30 TAB 04/01/19 Aspirin* (Aspirin* EC) 81 Mg Tablet.dr, 81 MG PO DAILY, TAB 04/01/19 Fenofibrate, Micronized (Fenofibrate) 134 Mg Capsule, 134 MG PO DAILY, CAP 04/01/19 Sevelamer Carbonate* (Renvela*) 800 Mg Tablet, 1.6 GM PO BID, TAB 04/01/19 Amiodarone Hcl* (Amiodarone Hcl*) 200 Mg Tablet, 200 MG PO DAILY, #30 TAB TAKE Q ,TH,SAT WITH DIALYSIS 04/01/19 Montelukast Sodium* (Montelukast Sodium*) 10 Mg Tablet, 10 MG PO QHS, #30 TAB 04/01/19 [Nephro-Elieser] No Conflict Check, 1 TAB PO DAILY 04/01/19 Sacubitril/Valsartan (Entresto 24 mg-26 mg Tablet) 1 Each Tablet, 1 EACH PO BID, TAB 04/01/19 Midodrine* (Midodrine*) 5 Mg Tablet, 5 MG PO DAILY, TAB 04/01/19 Furosemide* (Furosemide*) 40 Mg Tablet, 40 MG PO DAILY, TAB 04/01/19 Atorvastatin Calcium* (Atorvastatin Calcium*) 20 Mg Tablet, 20 MG PO QHS, #30 TAB 04/01/19 Medications Current Medications Amiodarone HCl (Cordarone) 200 mg DAILY PO Last administered on 04/13/19 09:31; Admin Dose 200 MG; Start 04/02/19 at 09:00 Aspirin (Halfprin) 81 mg DAILY PO Last administered on 04/13/19 09:31; Admin Dose 81 MG; Start 04/02/19 at 09:00 Atorvastatin Calcium (Lipitor) 20 mg QHS PO Last administered on 04/13/19 21:00; Admin Dose 20 MG; Start 04/01/19 at 21:00 Docusate Sodium (Colace) 100 mg BID PO Last administered on 04/13/19 21:00; Admin Dose 100 MG; Start 04/01/19 at 21:00 Montelukast Sodium (Singulair) 10 mg QHS PO Last administered on 04/13/19 21:00; Admin Dose 10 MG; Start 04/01/19 at 21:00 Sevelamer Carbonate (Renvela) 1.6 gm BID WITH MEALS PO Last administered on 04/13/19 09:31; Admin Dose 1.6 GM; Start 04/01/19 at 21:00 Albuterol/ Ipratropium (Duoneb) 3 ml Q2H RESP THERAPY PRN NEB SHORTNESS OF BREATH Last administered on 04/09/19 21:01; Admin Dose 3 ML; Start 04/01/19 at 21:00 Zolpidem Tartrate (Ambien) 5 mg QHS PRN PO INSOMNIA Last administered on 04/13/19 21:58; Admin Dose 5 MG; Start 04/01/19 at 21:00 Norepinephrine 250 ml @ 1.875 mls/ hr TITRATE IV Last administered on 04/13/19 19:55; Admin Dose 7.5 MLS/HR; Start 04/02/19 at 02:30 IV Flush (NS 10 ml) 10 ml PRN PRN IV IV PROTOCOL; Start 04/03/19 at 17:00 Epoetin Jatinder-epbx (Retacrit (Esrd)) 10,000 unit AFTER EACH DIALYSIS SC Last administered on 04/10/19at 15:55; Admin Dose 10,000 UNIT; Start 04/04/19 at 16:00 Miscellaneous Information 1 ea NOTE XX ; Start 04/05/19 at 11:30 Glucose (Glutose) 15 gm Q15M PRN PO DECREASED GLUCOSE; Start 04/05/19 at 11:30 Glucose (Glutose) 22.5 gm Q15M PRN PO DECREASED GLUCOSE; Start 04/05/19 at 11: 30 Dextrose (D50w Syringe) 25 ml Q15M PRN IV DECREASED GLUCOSE Last administered on 04/11/19at 11:46; Admin Dose 25 ML; Start 04/05/19 at 11:30 Dextrose (D50w Syringe) 50 ml Q15M PRN IV DECREASED GLUCOSE; Start 04/05/19 at 11:30 Glucagon (Glucagen) 1 mg Q15M PRN IM DECREASED GLUCOSE; Start 04/05/19 at 11:30 Glucose (Glutose) 15 gm Q15M PRN BUCCAL DECREASED GLUCOSE; Start 04/05/19 at 11:30 Diagnostic Test (Pha) (Accu-Chek) 1 ea 02 XX Last administered on 04/14/19at 01:31; Admin Dose 1 EA; Start 04/06/19 at 02:00 Insulin Aspart (Novolog Insulin Pen) NOVOLOG *MILD* ALGORITHM WITH MEALS BEDTIM E SC Last administered on 04/10/19at 20:26; Admin Dose 1 UNIT; Start 04/05/19 at 17:35 Insulin Glargine (Lantus) 20 units DAILY@1999 SC Last administered on 04/13/19at 20:59; Admin Dose 20 UNITS; Start 04/06/19 at 20:00 Ondansetron HCl (Zofran Inj) 4 mg Q6H PRN IV NAUSEA AND/OR VOMITING; Start 03/19 11/05 at 17:00 Metronidazole 100 ml @ 100 mls/hr Q8 IVPB Last administered on 04/14/19at 05:26; Admin Dose 100 MLS/HR; Start 04/11/19 at 15:30 Midodrine (Proamatine) 10 mg TID@0900,1300,1700 PO Last administered on 04/13/19at 18:28; Admin Dose 10 MG; Start 04/12/19 at 09:00 Dextrose/Sodium Chloride 1,000 ml @ 75 mls/hr [id number] IV Last administered on 04/13/19at 21:01; Admin Dose 75 MLS/HR; Start 04/13/19 at 08:00 Allergies: Coded Allergies: No Known Allergy (Unverified , 04/01/19) Social History Smoking Status: Former smoker Exam/Review of Systems Exam Vitals Vital Signs Date Temp Pulse Resp B/P (MAP) Pulse Ox O2 O2 Flow FiO2 Time Delivery Rate 04/14/19 85 19 105/45 06:00 (65) 04/14/19 2.0 03:46 04/14/19 98.9 03:45 04/14/19 97 03:30 04/14/19 Nasal 03:15 Cannula Intake and Output 04/13/19 04/13/19 04/14/19 1515:00 23:00 07:00 IntakeIntake Total 525.000 ml 566.250 ml 405 ml BalanceBalance 525.000 ml 566.250 ml 405 ml Constitutional: non-verbal Head: normocephalic, atraumatic Eyes: nl conjunctiva, EOMI, nl lids, nl sclera, PERRL Respiratory: clear to auscultation, normal air movement Cardiovascular: regular rate and rhythm, nl pulses Gastrointestinal: soft, nl liver, spleen, non-tender Neurological: other (Noncommunicative cannot assess cranial nerves no spontaneous movements) Results Result Diagram: 04/14/19 0415 04/14/19 0415 Results 24hrs Laboratory Tests Test 04/13/19 08:35 04/13/19 14:07 04/13/19 17:05 04/13/19 20:57 Bedside Glucose 95 120 122 130 Test 04/14/19 01:30 04/14/19 04:15 Bedside Glucose 133 White Blood Count 16.1 #H Red Blood Count 2.97 L Hemoglobin 8.7 L Hematocrit 29.8 L Mean Corpuscular 100.3 Volume Mean Corpuscular 29.3 Hemoglobin Mean Corpuscular 29.2 L Hemoglobin Concent Red Cell 17.0 H Distribution Width Platelet Count 354 Mean Platelet Volume 10.3 Immature 1.400 H Granulocytes % Neutrophils % 77.5 H Lymphocytes % 11.8 L Monocytes % 8.3 Eosinophils % 0.4 Basophils % 0.6 Nucleated Red Blood 0.0 Cells % Immature 0.220 H Granulocytes # Neutrophils # 12.5 H Lymphocytes # 1.9 Monocytes # 1.3 H Eosinophils # 0.1 Basophils # 0.1 Nucleated Red Blood 0.0 Cells # Sodium Level 139 Potassium Level 4.6 Chloride Level 105 Carbon Dioxide Level 25 Anion Gap 9 Blood Urea Nitrogen 36 #H Creatinine 4.29 #H Est Glomerular Filtrat Rate mL/min Glucose Level 120 # Calcium Level 7.8 L Phosphorus Level 4.6 Magnesium Level 2.4 Medications Medication Current Medications Amiodarone HCl (Cordarone) 200 mg DAILY PO Last administered on 04/13/19 09:31; Admin Dose 200 MG; Start 04/02/19 at 09:00 Aspirin (Halfprin) 81 mg DAILY PO Last administered on 04/13/19 09:31; Admin Dose 81 MG; Start 04/02/19 at 09:00 Atorvastatin Calcium (Lipitor) 20 mg QHS PO Last administered on 04/13/19 21:00; Admin Dose 20 MG; Start 04/01/19 at 21:00 Docusate Sodium (Colace) 100 mg BID PO Last administered on 04/13/19 21:00; Admin Dose 100 MG; Start 04/01/19 at 21:00 Montelukast Sodium (Singulair) 10 mg QHS PO Last administered on 04/13/19 21:00; Admin Dose 10 MG; Start 04/01/19 at 21:00 Sevelamer Carbonate (Renvela) 1.6 gm BID WITH MEALS PO Last administered on 04/13/19 09:31; Admin Dose 1.6 GM; Start 04/01/19 at 21:00 Albuterol/ Ipratropium (Duoneb) 3 ml Q2H RESP THERAPY PRN NEB SHORTNESS OF BREATH Last administered on 04/09/19 21:01; Admin Dose 3 ML; Start 04/01/19 at 21:00 Zolpidem Tartrate (Ambien) 5 mg QHS PRN PO INSOMNIA Last administered on 04/13/19 21:58; Admin Dose 5 MG; Start 04/01/19 at 21:00 Norepinephrine 250 ml @ 1.875 mls/ hr TITRATE IV Last administered on 04/13/19 19:55; Admin Dose 7.5 MLS/HR; Start 04/02/19 at 02:30 IV Flush (NS 10 ml) 10 ml PRN PRN IV IV PROTOCOL; Start 04/03/19 at 17:00 Epoetin Jatinder-epbx (Retacrit (Esrd)) 10,000 unit AFTER EACH DIALYSIS SC Last administered on 04/10/19 15:55; Admin Dose 10,000 UNIT; Start 04/04/19 at 16:00 Miscellaneous Information 1 ea NOTE XX ; Start 04/05/19 at 11:30 Glucose (Glutose) 15 gm Q15M PRN PO DECREASED GLUCOSE; Start 04/05/19 at 11:30 Glucose (Glutose) 22.5 gm Q15M PRN PO DECREASED GLUCOSE; Start 04/05/19 at 11:30 Dextrose (D50w Syringe) 25 ml Q15M PRN IV DECREASED GLUCOSE Last administered on 04/11/19 11:46; Admin Dose 25 ML; Start 04/05/19 at 11:30 Dextrose (D50w Syringe) 50 ml Q15M PRN IV DECREASED GLUCOSE; Start 04/05/19 at 11:30 Glucagon (Glucagen) 1 mg Q15M PRN IM DECREASED GLUCOSE; Start 04/05/19 at 11:30 Glucose (Glutose) 15 gm Q15M PRN BUCCAL DECREASED GLUCOSE; Start 04/05/19 at 11:30 Diagnostic Test (Pha) (Accu-Chek) 1 ea 02 XX Last administered on 04/14/19at 01:31; Admin Dose 1 EA; Start 04/06/19 at 02:00 Insulin Aspart (Novolog Insulin Pen) NOVOLOG *MILD* ALGORITHM WITH MEALS BEDTIME SC Last administered on 04/10/19 20:26; Admin Dose 1 UNIT; Start 04/05/19 at 17:35 Insulin Glargine (Lantus) 20 units DAILY@2000 SC Last administered on 04/13/19 20:59; Admin Dose 20 UNITS; Start 04/06/19 at 20:00 Ondansetron HCl (Zofran Inj) 4 mg Q6H PRN IV NAUSEA AND/OR VOMITING; Start 04/07/19 at 17:00 Metronidazole 100 ml @ 100 mls/hr Q8 IVPB Last administered on 6/28/19at 05:26; Admin Dose 100 MLS/HR; Start 04/11/19 at 15:30 Midodrine (Proamatine) 10 mg TID@0900,1300,1700 PO Last administered on 9at 18:28; Admin Dose 10 MG; Start 04/12/19 at 09:00 Dextrose/Sodium Chloride 1,000 ml @ 75 mls/hr [id number] IV Last administered on 04/13/19at 21:01; Admin Dose 75 MLS/HR; Start 04/13/19 at 08:00 LEATHA CISNEROS Apr 14, 2019 07:06
[2019-04-14] MEDS: SEVELAMER CARBONATE 0.8 GM PKT PO SCH ×2 (07:35→17:35)
[2019-04-14] MEDS: INSULIN ASPART [NOVOLOG] 3 ML PEN SC SCH ×4 (07:35→20:36)
--- NOTE | 2019-04-14 08:18 | PN ---
DATE: 04/14/2019 SUBJECTIVE: The patient remains critically ill, on pressor support. The patient remains confused. The patient is pending a family conference for palliative care today. No other acute events noted. The patient is scheduled for hemodialysis. OBJECTIVE: VITAL SIGNS: Blood pressure is 105/45, respirations 18, pulse 84, temperature 98.6. HEENT: Head is normocephalic. NECK: Supple. HEART: Regular rate. LUNGS: Show diminished breath sounds at the base. ABDOMEN: Soft, nontender to palpation without rebound or guarding. EXTREMITIES: Negative for clubbing, cyanosis. Positive edema. DERMATOLOGIC: No rashes. MUSCULOSKELETAL: No joint effusion. NEUROLOGIC: No change in exam. MEDICATIONS: The patient's medications have been reviewed. LABORATORY DATA: Reviewed. IMAGING STUDIES: Reviewed. ASSESSMENT AND PLAN: 1. Septic shock. Etiology is secondary to bacteremia, gram-negative rods. Underlying source is lik shara intraabdominal. The patient remains on pressor support, IV fluids, and antibiotic therapy. We w ill continue. 2. 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 Possible cholangiocarcinoma. The patien t has elevated CA 19-9. Appreciate Oncology/GI evaluation. The patient is stable, will need ERCP fo r definitive diagnosis. Continue to monitor. Follow up recommendations. 3. Anemia. Continue to monitor hemoglobin and hematocrit levels. Continue Epogen. 4. Mineral bone disorder. The patient is hypocalcemic, status post calcium gluconate. Continue to monitor. Continue vitamin D analogs. 5. Hypokalemia and hypomagnesemia. Continue to monitor and replete as needed. 6. End-stage renal disease. Plan is for hemodialysis today. 7. Elevated troponin, non-ST elevated myocardial infarction type 2. Continue to monitor. 8. Diabetes. Continue current insulin regimen. 9. Nutrition. The patient's family is refusing NG tube and tube feeding. We will consider TPN, dis cuss with GI. 10. Arrhythmia with history of pacemaker. 11. Volume overload. Continue to monitor. Continue ultrafiltration with dialysis if hemodynamicall y stable. 12. Acute encephalopathy, etiology is toxic metabolic. 13. Lower extremity wounds. Continue wound care. Dictated By: ADA MORENO/CORNELIA Conf#: [id number] DID#: [id number] CC: TRAE TRAVIS MD; DYLAN GREENE MD;*[facility]*
--- NOTE | 2019-04-14 08:25 | CONS ---
Consult Date/Type/Reason Admit Date/Time Apr 01, 2019 at 17:43 Initial Consult Date 04/03/19 Type of Consultation: cv Requesting Provider: ADA RANGEL DO Date/Time of Note DATE: 04/14/19 TIME: 08:23 Subjective Cardiology follow-up progress note Subjective: Discussed with the staff. Telemetry was reviewed. Patient has remained in PACED rhythm mostly d/w phyaicians Patient remains in ICU and hypotensive and remains on levophed drip No report of any chest pain or pressure he denies PND orthopnea to me Objective: General: no acute distress HEENT: NC/AT. pupils are equal. round. NECK: no stridor. CV: RRR. systolic murmur; no gallop or rubs. PULM: no wheezing or rhonchi. GI: SOFT, NT, ND, no rebound or guarding Extremity: + B/L LE edema. no clubbing. neuro: awake Psych: calm rectal: deferred EKG shows ventricular paced rhythm Chest x-ray done 03/24/2019 shows: 1. New left-sided PICC in proximal SVC. 2. Persistent small left-sided pleural effusion with left lung base atelectasis/infiltrate. 3. Persistent patchy opacity of the right lung base. 4. Persistent cardiomegaly with mild vascular congestion CT 1. Again noted is severe dilatation of left intrahepatic biliary ducts. No gross evidence of hepatic mass is seen, though sensitivity is markedly limited without IV contrast. Findings remain concerning for obstructive mass in the central left hepatic lobe, as described in the prior CT report. 2. Findings compatible with peritoneal carcinomatosis. Moderate ascites, grossly stable. 3. Stable mild cardiomegaly. Coronary arterial and aortoiliac atherosclerotic calcifications. 4. Mild to moderate bilateral pleural effusions, grossly stable. Bibasilar atelectasis. 5. Cholelithiasis, without evidence for cholecystitis. 6. Chronic bilateral renal cortical thinning and atrophy, unchanged. Objective Vitals Vital Signs Date Temp Pulse Resp B/P (MAP) Pulse Ox O2 O2 Flow FiO2 Time Delivery Rate 04/14/19 85 19 105/45 06:00 (65) 04/14/19 2.0 03:46 04/14/19 98.9 03:45 04/14/19 97 03:30 04/14/19 Nasal 03:15 Cannula Intake and Output 04/13/19 04/13/19 04/14/19 1515:00 23:00 07:00 IntakeIntake Total 525.000 ml 566.250 ml 405 ml BalanceBalance 525.000 ml 566.250 ml 405 ml Results/Medications Result Diagram: 04/14/19 0415 04/14/19 0415 Results 24 hrs Laboratory Tests Test 04/13/19 08:35 04/13/19 14:07 04/13/19 17:05 04/13/19 20:57 Bedside Glucose 95 120 122 130 Test 04/14/19 01:30 04/14/19 04:15 Bedside Glucose 133 White Blood Count 16.1 #H Red Blood Count 2.97 L Hemoglobin 8.7 L Hematocrit 29.8 L Mean Corpuscular 100.3 Volume Mean Corpuscular 29.3 Hemoglobin Mean Corpuscular 29.2 L Hemoglobin Concent Red Cell 17.0 H Distribution Width Platelet Count 354 Mean Platelet Volume 10.3 Immature 1.400 H Granulocytes % Neutrophils % 77.5 H Lymphocytes % 11.8 L Monocytes % 8.3 Eosinophils % 0.4 Basophils % 0.6 Nucleated Red Blood 0.0 Cells % Immature 0.220 H Granulocytes # Neutrophils # 12.5 H Lymphocytes # 1.9 Monocytes # 1.3 H Eosinophils # 0.1 Basophils # 0.1 Nucleated Red Blood 0.0 Cells # Sodium Level 139 Potassium Level 4.6 Chloride Level 105 Carbon Dioxide Level 25 Anion Gap 9 Blood Urea Nitrogen 36 #H Creatinine 4.29 #H Est Glomerular Filtrat Rate mL/min Glucose Level 120 # Calcium Level 7.8 L Phosphorus Level 4.6 Magnesium Level 2.4 Home Meds Reported Medications Docusate Sodium* (Docusate Sodium*) 100 Mg Capsule, 100 MG PO BID, #60 CAP 04/01/19 Metoprolol Succinate* (Toprol XL*) 25 Mg Tab.sr.24h, 25 MG PO DAILY, #30 TAB 04/01/19 Aspirin* (Aspirin* EC) 81 Mg Tablet.dr, 81 MG PO DAILY, TAB 04/01/19 Fenofibrate, Micronized (Fenofibrate) 134 Mg Capsule, 134 MG PO DAILY, CAP 04/01/19 Sevelamer Carbonate* (Renvela*) 800 Mg Tablet, 1.6 GM PO BID, TAB 04/01/19 Amiodarone Hcl* (Amiodarone Hcl*) 200 Mg Tablet, 200 MG PO DAILY, #30 TAB TAKE Q TUES,THURS,SAT WITH DIALYSIS 04/01/19 Montelukast Sodium* (Montelukast Sodium*) 10 Mg Tablet, 10 MG PO QHS, #30 TAB 04/01/19 [Nephro-Elieser] No Conflict Check, 1 TAB PO DAILY 04/01/19 Sacubitril/Valsartan (Entresto 24 mg-26 mg Tablet) 1 Each Tablet, 1 EACH PO BID, TAB 04/01/19 Midodrine* (Midodrine*) 5 Mg Tablet, 5 MG PO DAILY, TAB 04/01/19 Furosemide* (Furosemide*) 40 Mg Tablet, 40 MG PO DAILY, TAB 04/01/19 Atorvastatin Calcium* (Atorvastatin Calcium*) 20 Mg Tablet, 20 MG PO QHS, #30 TAB 04/01/19 Medications Current Medications Amiodarone HCl (Cordarone) 200 mg DAILY PO Last administered on 04/13/19 09:31; Admin Dose 200 MG; Start 04/02/19 at 09:00 Aspirin (Halfprin) 81 mg DAILY PO Last administered on 04/13/19 09:31; Admin Dose 81 MG; Start 04/02/19 at 09:00 Atorvastatin Calcium (Lipitor) 20 mg QHS PO Last administered on 04/13/19 21:00; Admin Dose 20 MG; Start 04/01/19 at 21:00 Docusate Sodium (Colace) 100 mg BID PO Last administered on 04/13/19 21:00; Admin Dose 100 MG; Start 04/01/19 at 21:00 Montelukast Sodium (Singulair) 10 mg QHS PO Last administered on 04/13/19 21:00; Admin Dose 10 MG; Start 04/01/19 at 21:00 Sevelamer Carbonate (Renvela) 1.6 gm BID WITH MEALS PO Last administered on 04/13/19 09:31; Admin Dose 1.6 GM; Start 04/01/19 at 21:00 Albuterol/ Ipratropium (Duoneb) 3 ml Q2H RESP THERAPY PRN NEB SHORTNESS OF BREATH Last administered on 04/09/19 21:01; Admin Dose 3 ML; Start 04/01/19 at 21:00 Zolpidem Tartrate (Ambien) 5 mg QHS PRN PO INSOMNIA Last administered on 04/13/19 21:58; Admin Dose 5 MG; Start 04/01/19 at 21:00 Norepinephrine 250 ml @ 1.875 mls/ hr TITRATE IV Last administered on 04/13/19 19:55; Admin Dose 7.5 MLS/HR; Start 04/02/19 at 02:30 IV Flush (NS 10 ml) 10 ml PRN PRN IV IV PROTOCOL; Start 04/03/19 at 17:00 Epoetin Jatinder-epbx (Retacrit (Esrd)) 10,000 unit AFTER EACH DIALYSIS SC Last administered on 04/10/19 15:55; Admin Dose 10,000 UNIT; Start 04/04/19 at 16:00 Miscellaneous Information 1 ea NOTE XX ; Start 04/05/19 at 11:30 Glucose (Glutose) 15 gm Q15M PRN PO DECREASED GLUCOSE; Start 04/05/19 at 11:30 Glucose (Glutose) 22.5 gm Q15M PRN PO DECREASED GLUCOSE; Start 04/05/19 at 11:30 Dextrose (D50w Syringe) 25 ml Q15M PRN IV DECREASED GLUCOSE Last administered on 04/11/19 11:46; Admin Dose 25 ML; Start 04/05/19 at 11:30 Dextrose (D50w Syringe) 50 ml Q15M PRN IV DECREASED GLUCOSE; Start 04/05/19 at 11:30 Glucagon (Glucagen) 1 mg Q15M PRN IM DECREASED GLUCOSE; Start 04/05/19 at 11:30 Glucose (Glutose) 15 gm Q15M PRN BUCCAL DECREASED GLUCOSE; Start 04/05/19 at 11:30 Diagnostic Test (Pha) (Accu-Chek) 1 ea 02 XX Last administered on 04/14/19at 01:31; Admin Dose 1 EA; Start 04/06/19 at 02:00 Insulin Aspart (Novolog Insulin Pen) NOVOLOG *MILD* ALGORITHM WITH MEALS BEDTIME SC Last administered on 04/10/19 20:26; Admin Dose 1 UNIT; Start 04/05/19 at 17:35 Insulin Glargine (Lantus) 20 units DAILY@2000 SC Last administered on 04/13/19 20:59; Admin Dose 20 UNITS; Start 04/06/19 at 20:00 Ondansetron HCl (Zofran Inj) 4 mg Q6H PRN IV NAUSEA AND/OR VOMITING; Start 04/07/19 at 17:00 Metronidazole 100 ml @ 100 mls/hr Q8 IVPB Last administered on 04/14/19 05:26; Admin Dose 100 MLS/HR; Start 04/11/19 at 15:30 Midodrine (Proamatine) 10 mg TID@0900,1300,1700 PO Last administered on 04/13/19at 18:28; Admin Dose 10 MG; Start 04/12/19 at 09:00 Dextrose/Sodium Chloride 1,000 ml @ 75 mls/hr [id number] IV Last administered on 04/13/19 21:01; Admin Dose 75 MLS/HR; Start 04/13/19 at 08:00 Assessment/Plan Hospital Course (Demo Recall) Mildly abnormal troponin secondary to sepsis renal failure etc. Sepsis/pneumonia GNR bacteremia/ septic shock Pneumonia ? cholangiocarcinoma Renal failure dialysis dependent History of arrhythmia probably sick sinus syndrome versus heart block status post MRI compatible [employer] permanent pacemaker Encephalopathy Paroxysmal atrial fibrillation Recommendations: aspirin as long as ok with GI and no active bleeding is noted Antibiotic management as per internal medicine and consultants Continue to be hemodialysis as tolerated Unable to tolerate beta-damian due to his low blood pressure levophed as needed f/u GI consultation rec cortisol level in AM was wnl. Pacemaker card reviewed. pacemaker is an MRI compatible and MRI can be done . need to call [employer] rep to change the pacemaker setting right before and afte r the MRCP. PLEASE CONTACT [employer] rep (Rubio at [phone]) to arrange for setting change fluid management as per renal Palliative care consulted. family conference is pending Thank you for this referral. We will continue to follow along with you JOSE D SOLOMON MD [facility] JOSE D SOLOMON MD Apr 14, 2019 08:25
[2019-04-14] MEDS: AMIODARONE 200 MG TAB PO SCH (08:58)
[2019-04-14] MEDS: MIDODRINE 5 MG TAB PO SCH ×3 (08:58→17:58)
[2019-04-14] MEDS: DOCUSATE SODIUM 100 MG CAP PO SCH ×2 (09:00→20:28)
[2019-04-14] MEDS: ASPIRIN (EC) 81 MG TAB PO SCH (09:00)
--- NOTE | 2019-04-14 11:16 | CONS ---
Consult Date/Type/Reason Admit Date/Time Apr 01, 2019 at 17:43 Initial Consult Date 04/03/19 Type of Consult Pulmonary Requesting Provider: ADA RANGEL DO Date/Time of Note DATE: 04/14/19 TIME: 11:15 Subjective Remains confused with intermittent agitation. Was more alert this morning currently on hemodialysis. Chest x-ray shows likely moderate left effusion. Objective Vital Signs Date Temp Pulse Resp B/P (MAP) Pulse Ox O2 O2 Flow FiO2 Time Delivery Rate 04/14/19 92 09:50 04/14/19 18 93/55 (68) 99 CPAP 2.0 09:05 04/14/19 98.9 03:45 Intake and Output 04/13/19 04/13/19 04/14/19 1515:00 23:00 07:00 IntakeIntake Total 525.000 ml 566.250 ml 487.5 ml BalanceBalance 525.000 ml 566.250 ml 487.5 ml Exam GENERAL: Elderly appearing gentleman on nasal cannula O2. VITAL SIGNS: per chart NECK: Supple. No JVD or lymphadenopathy. CARDIAC EXAM: S1, S2. No added sounds or murmurs. CHEST: clear bilaterally, No added sounds, rales or wheezes ABDOMEN: Soft, nontender. No guarding or rebound. EXTREMITIES: No cyanosis, clubbing or edema. NEUROLOGIC: Generalized weakness. No focal deficits Vent Setting Fraction of Inspired Oxygen pe: 28 Results/Medications Result Diagram: 04/14/19 0415 04/14/19 0415 Results 24 hrs Laboratory Tests Test 04/13/19 14:07 04/13/19 17:05 04/13/19 20:57 04/14/19 01:30 Bedside Glucose 120 122 130 133 Test 04/14/19 04:15 04/14/19 08:45 White Blood Count 16.1 #H Red Blood Count 2.97 L Hemoglobin 8.7 L Hematocrit 29.8 L Mean Corpuscular 100.3 Volume Mean Corpuscular 29.3 Hemoglobin Mean Corpuscular 29.2 L Hemoglobin Concent Red Cell 17.0 H Distribution Width Platelet Count 354 Mean Platelet Volume 10.3 Immature 1.400 H Granulocytes % Neutrophils % 77.5 H Lymphocytes % 11.8 L Monocytes % 8.3 Eosinophils % 0.4 Basophils % 0.6 Nucleated Red Blood 0.0 Cells % Immature 0.220 H Granulocytes # Neutrophils # 12.5 H Lymphocytes # 1.9 Monocytes # 1.3 H Eosinophils # 0.1 Basophils # 0.1 Nucleated Red Blood 0.0 Cells # Sodium Level 139 Potassium Level 4.6 Chloride Level 105 Carbon Dioxide Level 25 Anion Gap 9 Blood Urea Nitrogen 36 #H Creatinine 4.29 #H Est Glomerular Filtrat Rate mL/min Glucose Level 120 # Calcium Level 7.8 L Phosphorus Level 4.6 Magnesium Level 2.4 Bedside Glucose 116 Medications Current Medications Amiodarone HCl (Cordarone) 200 mg DAILY PO Last administered on 04/14/19 08:58; Admin Dose 200 MG; Start 04/02/19 at 09:00 Aspirin (Halfprin) 81 mg DAILY PO Last administered on 04/13/19 09:31; Admin Dose 81 MG; Start 04/02/19 at 09:00 Atorvastatin Calcium (Lipitor) 20 mg QHS PO Last administered on 04/13/19 21:00; Admin Dose 20 MG; Start 04/01/19 at 21:00 Docusate Sodium (Colace) 100 mg BID PO Last administered on 04/13/19 21:00; Admin Dose 100 MG; Start 04/01/19 at 21:00 Montelukast Sodium (Singulair) 10 mg QHS PO Last administered on 04/13/19 21:00; Admin Dose 10 MG; Start 04/01/19 at 21:00 Sevelamer Carbonate (Renvela) 1.6 gm BID WITH MEALS PO Last administered on 04/13/19 09:31; Admin Dose 1.6 GM; Start 04/01/19 at 21:00 Albuterol/ Ipratropium (Duoneb) 3 ml Q2H RESP THERAPY PRN NEB SHORTNESS OF BREATH Last administered on 04/09/19 21:01; Admin Dose 3 ML; Start 04/01/19 at 21:00 Zolpidem Tartrate (Ambien) 5 mg QHS PRN PO INSOMNIA Last administered on 04/13/19 21:58; Admin Dose 5 MG; Start 04/01/19 at 21:00 Norepinephrine 250 ml @ 1.875 mls/ hr TITRATE IV Last administered on 04/13/19 19:55; Admin Dose 7.5 MLS/HR; Start 04/02/19 at 02:30 IV Flush (NS 10 ml) 10 ml PRN PRN IV IV PROTOCOL; Start 04/03/19 at 17:00 Epoetin Jatinder-epbx (Retacrit (Esrd)) 10,000 unit AFTER EACH DIALYSIS SC Last administered on 04/10/19at 15:55; Admin Dose 10,000 UNIT; Start 04/04/19 at 16:00 Miscellaneous Information 1 ea NOTE XX ; Start 04/05/19 at 11:30 Glucose (Glutose) 15 gm Q15M PRN PO DECREASED GLUCOSE; Start 04/05/19 at 11:30 Glucose (Glutose) 22.5 gm Q15M PRN PO DECREASED GLUCOSE; Start 04/05/19 at 11:30 Dextrose (D50w Syringe) 25 ml Q15M PRN IV DECREASED GLUCOSE Last administered on 04/11/19at 11:46; Admin Dose 25 ML; Start 04/05/19 at 11:30 Dextrose (D50w Syringe) 50 ml Q15M PRN IV DECREASED GLUCOSE; Start 04/05/19 at 11:30 Glucagon (Glucagen) 1 mg Q15M PRN IM DECREASED GLUCOSE; Start 04/05/19 at 11:30 Glucose (Glutose) 15 gm Q15M PRN BUCCAL DECREASED GLUCOSE; Start 04/05/19 at 11:30 Diagnostic Test (Pha) (Accu-Chek) 1 ea 02 XX Last administered on 04/14/19at 01:31; Admin Dose 1 EA; Start 04/06/19 at 02:00 Insulin Aspart (Novolog Insulin Pen) NOVOLOG *MILD* ALGORITHM WITH MEALS BEDTIME SC Last administered on 04/10/19at 20:26; Admin Dose 1 UNIT; Start 04/05/19 at 17:35 Insulin Glargine (Lantus) 20 units DAILY@2000 SC Last administered on 04/13/19at 20:59; Admin Dose 20 UNITS; Start 04/06/19 at 20:00 Ondansetron HCl (Zofran Inj) 4 mg Q6H PRN IV NAUSEA AND/OR VOMITING; Start 04/07/19 at 17:00 Metronidazole 100 ml @ 100 mls/hr Q8 IVPB Last administered on 04/14/19at 05:26; Admin Dose 100 MLS/HR; Start 04/11/19 at 15:30 Midodrine (Proamatine) 10 mg TID@0900,1300,1700 PO Last administered on 04/14/19at 08:58; Admin Dose 10 MG; Start 04/12/19 at 09:00 Dextrose/Sodium Chloride 1,000 ml @ 75 mls/hr [id number] IV Last administered on 04/13/19at 21:01; Admin Dose 75 MLS/HR; Start 04/13/19 at 08:00 Assessment/Plan Hospital Course (Demo Recall) Assessment 1. Septic shock requiring vasopressor support blood cultures positive for Bacteroides ongoing vasopressor requirement 2. History of end-stage renal failure on hemodialysis 3. History of cholangiocarcinoma. 4. History of arrhythmia with pacemaker 5. Diabetes mellitus 6. Dysphagia remains risk of aspiration. 7. Encephalopathy toxic metabolic, appears to be slowly improving Plan 1. Continue supplemental O2 as needed 2. Hemodialysis as tolerated. 3. Continue antibiotics per ID 4. Thoracentesis left lung. 5. Titrate vasopressors to keep map greater than 65, no evidence of adrenal insufficiency with normal cortisol level noted. 6. Speech therapy recommendations aspiration precautions. Critical care time 40 minutes Consider palliative care evaluation. Family had declined nasogastric and G tube. Discussed with family this morning they stated that they would request patient be DNR/DNI. plaster and stucco worker to confirm. TRAE TRAVIS MD, [facility] Apr 14, 2019 11:16
--- NOTE | 2019-04-14 11:29 | CONS ---
Assessment/Plan Assessment/Plan Assessment/Plan (Daily) 1. Severe sepsis. -Bacteremia with possible intra-abdominal etiology 2. Ascites. 3. Pneumonia. 4. Hepatocellular cancer with carcinomatosis. -CA 199 1000 and alpha-fetoprotein was within normal limit. This cancer cell marker are more in favor of cholangiocarcinoma rather than hepatocellular cancer. 5. Diabetes mellitus. 6. Atrial fibrillation. 7. Congestive heart failure. 8. Dilated left-sided biliary system. The most probably has a cholangiocarcinoma needs stenting 9. Anemia. -positive fob, low iron, tibc, %sat, high ferritin 10. Patient is still fluid overload Plan -Monitor HH and for acute GI bleeding -Pt needs ERCP but deemed too unstable per anesthesiology. No cardiac clearance given yet. Still requiring pressor support Patient is still on pressor support and has a volume overload. Needs dialysis and fluid to be removed as tolerated by patient with albumin infusion Consultation Date/Type/Reason Admit Date/Time Apr 01, 2019 at 17:43 Initial Consult Date 04/03/19 Requesting Provider: ADA RANGEL DO Date/Time of Note DATE: 04/14/19 TIME: 11:28 24 HR Interval Summary Subjective hx not possible: pt critical Exam/Review of Systems Exam Vitals Vital Signs Date Temp Pulse Resp B/P (MAP) Pulse Ox O2 O2 Flow FiO2 Time Delivery Rate 04/14/19 92 09:50 04/14/19 18 93/55 (68) 99 CPAP 2.0 09:05 04/14/19 98.9 03:45 Intake and Output 04/13/19 04/13/19 04/14/19 1515:00 23:00 07:00 IntakeIntake Total 525.000 ml 566.250 ml 487.5 ml BalanceBalance 525.000 ml 566.250 ml 487.5 ml Constitutional: alert, oriented, well developed Extremities: pitting pedal edema Results Result Diagram: 04/14/19 0415 04/14/19 0415 Results 24hrs Laboratory Tests Test 04/13/19 14:07 04/13/19 17:05 04/13/19 20:57 04/14/19 01:30 Bedside Glucose 120 122 130 133 Test 04/14/19 04:15 04/14/19 08:45 White Blood Count 16.1 #H Red Blood Count 2.97 L Hemoglobin 8.7 L Hematocrit 29.8 L Mean Corpuscular 100.3 Volume Mean Corpuscular 29.3 Hemoglobin Mean Corpuscular 29.2 L Hemoglobin Concent Red Cell 17.0 H Distribution Width Platelet Count 354 Mean Platelet Volume 10.3 Immature 1.400 H Granulocytes % Neutrophils % 77.5 H Lymphocytes % 11.8 L Monocytes % 8.3 Eosinophils % 0.4 Basophils % 0.6 Nucleated Red Blood 0.0 Cells % Immature 0.220 H Granulocytes # Neutrophils # 12.5 H Lymphocytes # 1.9 Monocytes # 1.3 H Eosinophils # 0.1 Basophils # 0.1 Nucleated Red Blood 0.0 Cells # Sodium Level 139 Potassium Level 4.6 Chloride Level 105 Carbon Dioxide Level 25 Anion Gap 9 Blood Urea Nitrogen 36 #H Creatinine 4.29 #H Est Glomerular Filtrat Rate mL/min Glucose Level 120 # Calcium Level 7.8 L Phosphorus Level 4.6 Magnesium Level 2.4 Bedside Glucose 116 Medications Medication Current Medications Amiodarone HCl (Cordarone) 200 mg DAILY PO Last administered on 04/14/19 08:58; Admin Dose 200 MG; Start 04/02/19 at 09:00 Aspirin (Halfprin) 81 mg DAILY PO Last administered on 04/13/19 09:31; Admin Dose 81 MG; Start 04/02/19 at 09:00 Atorvastatin Calcium (Lipitor) 20 mg QHS PO Last administered on 04/13/19 21:00; Admin Dose 20 MG; Start 04/01/19 at 21:00 Docusate Sodium (Colace) 100 mg BID PO Last administered on 04/13/19 21:00; Admin Dose 100 MG; Start 04/01/19 at 21:00 Montelukast Sodium (Singulair) 10 mg QHS PO Last administered on 04/13/19 21:00; Admin Dose 10 MG; Start 04/01/19 at 21:00 Sevelamer Carbonate (Renvela) 1.6 gm BID WITH MEALS PO Last administered on 04/13/19 09:31; Admin Dose 1.6 GM; Start 04/01/19 at 21:00 Albuterol/ Ipratropium (Duoneb) 3 ml Q2H RESP THERAPY PRN NEB SHORTNESS OF BREATH Last administered on 04/09/19 21:01; Admin Dose 3 ML; Start 04/01/19 at 21:00 Zolpidem Tartrate (Ambien) 5 mg QHS PRN PO INSOMNIA Last administered on 04/13/19 21:58; Admin Dose 5 MG; Start 04/01/19 at 21:00 Norepinephrine 250 ml @ 1.875 mls/ hr TITRATE IV Last administered on 04/13/19 19:55; Admin Dose 7.5 MLS/HR; Start 04/02/19 at 02:30 IV Flush (NS 10 ml) 10 ml PRN PRN IV IV PROTOCOL; Start 04/03/19 at 17:00 Epoetin Jatinder-epbx (Retacrit (Esrd)) 10,000 unit AFTER EACH DIALYSIS SC Last administered on 04/10/19 15:55; Admin Dose 10,000 UNIT; Start 04/04/19 at 16:00 Miscellaneous Information 1 ea NOTE XX ; Start 04/05/19 at 11:30 Glucose (Glutose) 15 gm Q15M PRN PO DECREASED GLUCOSE; Start 04/05/19 at 11:30 Glucose (Glutose) 22.5 gm Q15M PRN PO DECREASED GLUCOSE; Start 04/05/19 at 11:30 Dextrose (D50w Syringe) 25 ml Q15M PRN IV DECREASED GLUCOSE Last administered on 04/11/19 11:46; Admin Dose 25 ML; Start 04/05/19 at 11:30 Dextrose (D50w Syringe) 50 ml Q15M PRN IV DECREASED GLUCOSE; Start 04/05/19 at 11:30 Glucagon (Glucagen) 1 mg Q15M PRN IM DECREASED GLUCOSE; Start 04/05/19 at 11:30 Glucose (Glutose) 15 gm Q15M PRN BUCCAL DECREASED GLUCOSE; Start 04/05/19 at 11:30 Diagnostic Test (Pha) (Accu-Chek) 1 ea 02 XX Last administered on 04/14/19at 01:31; Admin Dose 1 EA; Start 04/06/19 at 02:00 Insulin Aspart (Novolog Insulin Pen) NOVOLOG *MILD* ALGORITHM WITH MEALS BEDTIME SC Last administered on 04/10/19 20:26; Admin Dose 1 UNIT; Start 04/05/19 at 17:35 Insulin Glargine (Lantus) 20 units DAILY@2000 SC Last administered on 04/13/19at 20:59; Admin Dose 20 UNITS; Start 04/06/19 at 20:00 Ondansetron HCl (Zofran Inj) 4 mg Q6H PRN IV NAUSEA AND/OR VOMITING; Start 04/07/19 at 17:00 Metronidazole 100 ml @ 100 mls/hr Q8 IVPB Last administered on 04/14/19at 05:26; Admin Dose 100 MLS/HR; Start 04/11/19 at 15:30 Midodrine (Proamatine) 10 mg TID@0900,1300,1700 PO Last administered on 04/14/19at 08:58; Admin Dose 10 MG; Start 04/12/19 at 09:00 Dextrose/Sodium Chloride 1,000 ml @ 75 mls/hr [id number] IV Last administered on 04/13/19at 21:01; Admin Dose 75 MLS/HR; Start 04/13/19 at 08:00 OLIVIA CANTOR MD Apr 14, 2019 11:29
[2019-04-14] MEDS: DEXTROSE 5%-0.9% NACL 1,000 ML IV SCH (13:02)
[2019-04-14] MEDS: BALSAM PERU/CASTOR OIL 60 GM TUBE TOP SCH ×2 (13:03→20:37)
--- NOTE | 2019-04-14 13:19 | CONS ---
Assessment/Plan Assessment/Plan Hospital Course (Demo Recall) 83 yo with multiple medical problems admitted for hypotension and ascites, CT showed peritoneal carcinomatosis, there is also severe dilatation of left intrahepatic biliary ducts. Ca 19-9 is very elevated, AFP not elevated #Cholangiocarcinoma #Severe Sepsis #KIMANI -at this time he is in ICU and critical. remains on pressors -as part of w/u when he is more stable will recommend CT CAP with contrast -has been seen by GI, Dr Schuster. AFP is not elevated so less likely to be hepatocellular ca and more likely to be cholangiocarcinoma -cholangiocarcinoma carries poor prognosis. once pt is more stable, if at that time family and pt want to pursue diagnosis he would likely need ERCP and biopsy -continue HDns -would not start TPN at this time Consultation Date/Type/Reason Admit Date/Time Apr 01, 2019 at 17:43 Initial Consult Date 04/03/19 Type of Consult oncology Reason for Consultation HCC Requesting Provider: ADA RANGEL DO Date/Time of Note DATE: 04/14/19 TIME: 13:17 24 HR Interval Summary Free Text/Dictation currently receiving HD Exam/Review of Systems Exam Vitals Vital Signs Date Temp Pulse Resp B/P (MAP) Pulse Ox O2 O2 Flow FiO2 Time Delivery Rate 04/14/19 98 17 113/49 100 Nasal 2.0 12:14 (70) Cannula 04/14/19 98.9 03:45 Intake and Output 04/13/19 04/13/19 04/14/19 1515:00 23:00 07:00 IntakeIntake Total 525.000 ml 566.250 ml 487.5 ml BalanceBalance 525.000 ml 566.250 ml 487.5 ml Constitutional: frail Psych: anxiety, depression Head: normocephalic Eyes: nl conjunctiva ENMT: nl external ears & nose Neck: supple Respiratory: clear to auscultation Cardiovascular: regular rate and rhythm Gastrointestinal: soft Musculoskeletal: nl extremities to inspection Results Result Diagram: 04/14/19 0415 04/14/19 0415 Results 24hrs Laboratory Tests Test 04/13/19 14:07 04/13/19 17:05 04/13/19 20:57 04/14/19 01:30 Bedside Glucose 120 122 130 133 Test 04/14/19 04:15 04/14/19 08:45 04/14/19 12:56 White Blood Count 16.1 #H Red Blood Count 2.97 L Hemoglobin 8.7 L Hematocrit 29.8 L Mean Corpuscular 100.3 Volume Mean Corpuscular 29.3 Hemoglobin Mean Corpuscular 29.2 L Hemoglobin Concent Red Cell 17.0 H Distribution Width Platelet Count 354 Mean Platelet Volume 10.3 Immature 1.400 H Granulocytes % Neutrophils % 77.5 H Lymphocytes % 11.8 L Monocytes % 8.3 Eosinophils % 0.4 Basophils % 0.6 Nucleated Red Blood 0.0 Cells % Immature 0.220 H Granulocytes # Neutrophils # 12.5 H Lymphocytes # 1.9 Monocytes # 1.3 H Eosinophils # 0.1 Basophils # 0.1 Nucleated Red Blood 0.0 Cells # Sodium Level 139 Potassium Level 4.6 Chloride Level 105 Carbon Dioxide Level 25 Anion Gap 9 Blood Urea Nitrogen 36 #H Creatinine 4.29 #H Est Glomerular Filtrat Rate mL/min Glucose Level 120 # Calcium Level 7.8 L Phosphorus Level 4.6 Magnesium Level 2.4 Bedside Glucose 116 104 Medications Medication Current Medications Amiodarone HCl (Cordarone) 200 mg DAILY PO Last administered on 04/14/19 08:58; Admin Dose 200 MG; Start 04/02/19 at 09:00 Aspirin (Halfprin) 81 mg DAILY PO Last administered on 04/13/19 09:31; Admin Dose 81 MG; Start 04/02/19 at 09:00 Atorvastatin Calcium (Lipitor) 20 mg QHS PO Last administered on 04/13/19 21:00; Admin Dose 20 MG; Start 04/01/19 at 21:00 Docusate Sodium (Colace) 100 mg BID PO Last administered on 04/13/19 21:00; Admin Dose 100 MG; Start 04/01/19 at 21:00 Montelukast Sodium (Singulair) 10 mg QHS PO Last administered on 04/13/19 21:00; Admin Dose 10 MG; Start 04/01/19 at 21:00 Sevelamer Carbonate (Renvela) 1.6 gm BID WITH MEALS PO Last administered on 04/13/19 09:31; Admin Dose 1.6 GM; Start 04/01/19 at 21:00 Albuterol/ Ipratropium (Duoneb) 3 ml Q2H RESP THERAPY PRN NEB SHORTNESS OF BREATH Last administered on 04/09/19 21:01; Admin Dose 3 ML; Start 04/01/19 at 21:00 Zolpidem Tartrate (Ambien) 5 mg QHS PRN PO INSOMNIA Last administered on 04/13/19 21:58; Admin Dose 5 MG; Start 04/01/19 at 21:00 Norepinephrine 250 ml @ 1.875 mls/ hr TITRATE IV Last administered on 04/13/19 19:55; Admin Dose 7.5 MLS/HR; Start 04/02/19 at 02:30 IV Flush (NS 10 ml) 10 ml PRN PRN IV IV PROTOCOL; Start 04/03/19 at 17:00 Epoetin Jatinder-epbx (Retacrit (Esrd)) 10,000 unit AFTER EACH DIALYSIS SC Last administered on 04/10/19 15:55; Admin Dose 10,000 UNIT; Start 04/04/19 at 16:00 Miscellaneous Information 1 ea NOTE XX ; Start 04/05/19 at 11:30 Glucose (Glutose) 15 gm Q15M PRN PO DECREASED GLUCOSE; Start 04/05/19 at 11:30 Glucose (Glutose) 22.5 gm Q15M PRN PO DECREASED GLUCOSE; Start 04/05/19 at 11:30 Dextrose (D50w Syringe) 25 ml Q15M PRN IV DECREASED GLUCOSE Last administered on 04/11/19 11:46; Admin Dose 25 ML; Start 04/05/19 at 11:30 Dextrose (D50w Syringe) 50 ml Q15M PRN IV DECREASED GLUCOSE; Start 04/05/19 at 11:30 Glucagon (Glucagen) 1 mg Q15M PRN IM DECREASED GLUCOSE; Start 04/05/19 at 11:30 Glucose (Glutose) 15 gm Q15M PRN BUCCAL DECREASED GLUCOSE; Start 04/05/19 at 11:30 Diagnostic Test (Pha) (Accu-Chek) 1 ea 02 XX Last administered on 04/14/19 01:31; Admin Dose 1 EA; Start 04/06/19 at 02:00 Insulin Aspart (Novolog Insulin Pen) NOVOLOG *MILD* ALGORITHM WITH MEALS BEDTIME SC Last administered on 04/10/19 20:26; Admin Dose 1 UNIT; Start 04/05/19 at 17:35 Insulin Glargine (Lantus) 20 units DAILY@2000 SC Last administered on 04/13/19at 20:59; Admin Dose 20 UNITS; Start 04/06/19 at 20:00 Ondansetron HCl (Zofran Inj) 4 mg Q6H PRN IV NAUSEA AND/OR VOMITING; Start 04/07/19 at 17:00 Metronidazole 100 ml @ 100 mls/hr Q8 IVPB Last administered on 04/14/19at 05:26; Admin Dose 100 MLS/HR; Start 04/11/19 at 15:30 Midodrine (Proamatine) 10 mg TID@0900,1300,1700 PO Last administered on 04/14/19 08:58; Admin Dose 10 MG; Start 04/12/19 at 09:00 Dextrose/Sodium Chloride 1,000 ml @ 75 mls/hr [id number] IV Last administered on 04/14/19 13:02; Admin Dose 75 MLS/HR; Start 04/13/19 at 08:00 GEORGES ROBLEDO M.D. Apr 14, 2019 13:19
--- NOTE | 2019-04-14 14:08 | CONS ---
Assessment/Plan Assessment/Plan Hospital Course (Demo Recall) 1100 no acute changes patient is seen hemodialysis looks comfortable no fevers overnight Indwelling's: PICC line and upper extremity fistula Antimicrobials: Flagyl Microbiology: Blood culture on admission grew Bacteroides fragilis, repeat cx neg Physical examination: This is an obese well-developed chronically ill elderly [place] man who is in no distress. Head atraumatic normocephalic neck is supple chest rise symmetrical breath sounds diminished bases. Heart: S1-S2. Tachycardic abdomen soft obese bowel sounds hypoactive extremities without cyanosis, trace edema Assessment: 1. Sepsis with shock 2. Bacteremia ? source==>likely intraabdominal 3. End-stage renal disease, hemodialysis dependent 4. Recently diagnosed hepatocellular carcinoma, poss obstructing mass and perit schmidt carcinomatosis 5. Coronary artery disease status post permanent pacemaker 6. Diabetes 7. Atrial fibrillation Plan: Remains unchanged, continue antibiotics follow GI and oncology recommendat ions Consultation Date/Type/Reason Admit Date/Time Apr 01, 2019 at 17:43 Initial Consult Date 04/03/19 Type of Consult id Requesting Provider: ADA RANGEL DO Date/Time of Note DATE: 04/14/19 TIME: 14:07 Exam/Review of Systems Exam Vitals Vital Signs Date Temp Pulse Resp B/P (MAP) Pulse Ox O2 O2 Flow FiO2 Time Delivery Rate 04/14/19 98 17 113/49 100 Nasal 2.0 12:14 (70) Cannula 04/14/19 98.9 03:45 Intake and Output 04/13/19 04/13/19 04/14/19 1515:00 23:00 07:00 IntakeIntake Total 525.000 ml 566.250 ml 487.5 ml BalanceBalance 525.000 ml 566.250 ml 487.5 ml Results Result Diagram: 04/14/19 0415 04/14/19 0415 Results 24hrs Laboratory Tests Test 04/13/19 17:05 04/13/19 20:57 04/14/19 01:30 04/14/19 04:15 Bedside Glucose 122 130 133 White Blood Count 16.1 #H Red Blood Count 2.97 L Hemoglobin 8.7 L Hematocrit 29.8 L Mean Corpuscular 100.3 Volume Mean Corpuscular 29.3 Hemoglobin Mean Corpuscular 29.2 L Hemoglobin Concent Red Cell 17.0 H Distribution Width Platelet Count 354 Mean Platelet Volume 10.3 Immature 1.400 H Granulocytes % Neutrophils % 77.5 H Lymphocytes % 11.8 L Monocytes % 8.3 Eosinophils % 0.4 Basophils % 0.6 Nucleated Red Blood 0.0 Cells % Immature 0.220 H Granulocytes # Neutrophils # 12.5 H Lymphocytes # 1.9 Monocytes # 1.3 H Eosinophils # 0.1 Basophils # 0.1 Nucleated Red Blood 0.0 Cells # Sodium Level 139 Potassium Level 4.6 Chloride Level 105 Carbon Dioxide Level 25 Anion Gap 9 Blood Urea Nitrogen 36 #H Creatinine 4.29 #H Est Glomerular Filtrat Rate mL/min Glucose Level 120 # Calcium Level 7.8 L Phosphorus Level 4.6 Magnesium Level 2.4 Test 04/14/19 08:45 04/14/19 12:56 Bedside Glucose 116 104 Medications Medication Current Medications Amiodarone HCl (Cordarone) 200 mg DAILY PO Last administered on 04/14/19 08:58; Admin Dose 200 MG; Start 04/02/19 at 09:00 Aspirin (Halfprin) 81 mg DAILY PO Last administered on 04/13/19 09:31; Admin Dose 81 MG; Start 04/02/19 at 09:00 Atorvastatin Calcium (Lipitor) 20 mg QHS PO Last administered on 04/13/19 21:00; Admin Dose 20 MG; Start 04/01/19 at 21:00 Docusate Sodium (Colace) 100 mg BID PO Last administered on 04/13/19 21:00; Admin Dose 100 MG; Start 04/01/19 at 21:00 Montelukast Sodium (Singulair) 10 mg QHS PO Last administered on 04/13/19 21:00; Admin Dose 10 MG; Start 04/01/19 at 21:00 Sevelamer Carbonate (Renvela) 1.6 gm BID WITH MEALS PO Last administered on 04/13/19 09:31; Admin Dose 1.6 GM; Start 04/01/19 at 21:00 Albuterol/ Ipratropium (Duoneb) 3 ml Q2H RESP THERAPY PRN NEB SHORTNESS OF BREATH Last administered on 04/09/19 21:01; Admin Dose 3 ML; Start 04/01/19 at 21:00 Zolpidem Tartrate (Ambien) 5 mg QHS PRN PO INSOMNIA Last administered on 04/13/19at 21:58; Admin Dose 5 MG; Start 04/01/19 at 21:00 Norepinephrine 250 ml @ 1.875 mls/ hr TITRATE IV Last administered on at 19:55; Admin Dose 7.5 MLS/HR; Start 04/02/19 at 02:30 IV Flush (NS 10 ml) 10 ml PRN PRN IV IV PROTOCOL; Start 04/03/19 at 17:00 Epoetin Jatinder-epbx (Retacrit (Esrd)) 10,000 unit AFTER EACH DIALYSIS SC Last administered on 04/10/19 15:55; Admin Dose 10,000 UNIT; Start 04/04/19 at 16:00 Miscellaneous Information 1 ea NOTE XX ; Start 04/05/19 at 11:30 Glucose (Glutose) 15 gm Q15M PRN PO DECREASED GLUCOSE; Start 04/05/19 at 11:30 Glucose (Glutose) 22.5 gm Q15M PRN PO DECREASED GLUCOSE; Start 04/05/19 at 11:30 Dextrose (D50w Syringe) 25 ml Q15M PRN IV DECREASED GLUCOSE Last administered on 04/11/19at 11:46; Admin Dose 25 ML; Start 04/05/19 at 11:30 Dextrose (D50w Syringe) 50 ml Q15M PRN IV DECREASED GLUCOSE; Start 04/05/19 at 11:30 Glucagon (Glucagen) 1 mg Q15M PRN IM DECREASED GLUCOSE; Start 04/05/19 at 11:30 Glucose (Glutose) 15 gm Q15M PRN BUCCAL DECREASED GLUCOSE; Start 04/05/19 at 11:30 Diagnostic Test (Pha) (Accu-Chek) 1 ea 02 XX Last administered on 04/14/19at 01:31; Admin Dose 1 EA; Start 04/06/19 at 02:00 Insulin Aspart (Novolog Insulin Pen) NOVOLOG *MILD* ALGORITHM WITH MEALS BEDTIME SC Last administered on 04/10/19at 20:26; Admin Dose 1 UNIT; Start 04/05/19 at 17:35 Insulin Glargine (Lantus) 20 units DAILY@2000 SC Last administered on 04/13/19at 20:59; Admin Dose 20 UNITS; Start 04/06/19 at 20:00 Ondansetron HCl (Zofran Inj) 4 mg Q6H PRN IV NAUSEA AND/OR VOMITING; Start 04/07/19 at 17:00 Metronidazole 100 ml @ 100 mls/hr Q8 IVPB Last administered on 04/14/19at 05:26; Admin Dose 100 MLS/HR; Start 04/11/19 at 15:30 Midodrine (Proamatine) 10 mg TID@0900,1300,1700 PO Last administered on 04/14/19at 08:58; Admin Dose 10 MG; Start 04/12/19 at 09:00 Dextrose/Sodium Chloride 1,000 ml @ 75 mls/hr [id number] IV Last administered on 04/14/19at 13:02; Admin Dose 75 MLS/HR; Start 04/13/19 at 08:00 JOAO RAHMAN NP Apr 14, 2019 14:08
[2019-04-14] MEDS ORDERED: LIDOCAINE 1% (MPF) 5 ML VIAL ONE (16:29)
[2019-04-14] MEDS: INSULIN GLARGINE [LANTus] (100 UNITS/ML) SYG SC SCH (20:03)
[2019-04-14] MEDS: MONTELUKAST 10 MG TAB PO SCH (20:28)
[2019-04-14] MEDS: ATORVASTATIN 20 MG TAB PO SCH (20:28)
[2019-04-14] MEDS: NORepinephrine 8MG/250 ML (PMX 250 ML IV SCH (21:58)
[2019-04-15] VITALS (74 sets, daily range): BP systolic 51–147; BP diastolic 17–102; PULSE 60–111; RESP 5–34
[2019-04-15] MEDS: ACCU-CHEK XX SCH (02:00)
[2019-04-15] MEDS: metroNIDAZOLE 500 MG/NS (PMX) 100 ML IVPB SCH ×3 (06:14→22:00)
[2019-04-15] MEDS: INSULIN ASPART [NOVOLOG] 3 ML PEN SC SCH ×4 (07:35→21:00)
[2019-04-15] MEDS: SEVELAMER CARBONATE 0.8 GM PKT PO SCH ×2 (08:28→18:46)
[2019-04-15] MEDS: DOCUSATE SODIUM 100 MG CAP PO SCH ×2 (08:29→20:53)
[2019-04-15] MEDS: AMIODARONE 200 MG TAB PO SCH (08:29)
[2019-04-15] MEDS: ASPIRIN (EC) 81 MG TAB PO SCH (08:29)
[2019-04-15] MEDS: BALSAM PERU/CASTOR OIL 60 GM TUBE TOP SCH ×2 (08:29→21:05)
[2019-04-15] MEDS: MIDODRINE 5 MG TAB PO SCH ×3 (08:31→18:46)
--- NOTE | 2019-04-15 08:36 | PN ---
DATE: 04/15/2019 SUBJECTIVE DATA: The patient is critically ill on pressor support. The patient is scheduled for trev lysis today. The patient yesterday had a family conference with palliative care, Dr. Lopez. Caroline ent remains FULL CODE. No other events noted. OBJECTIVE: VITAL SIGNS: Blood pressure is 118/53, respiration 19, pulse 85, temperature 98.6. HEENT: Head is normocephalic. NECK: Supple. HEART: Regular rate. LUNGS: Show diminished breath sounds at the base. ABDOMEN: Soft, nontender to palpation without rebound or guarding. EXTREMITIES: Negative for clubbing, cyanosis. Positive edema. DERMATOLOGIC: No rashes. MUSCULOSKELETAL: No joint effusion. NEUROLOGIC: No change in exam. MEDICATIONS: Reviewed. LABORATORY DATA: Has been reviewed. IMAGING STUDIES: Have been reviewed. ASSESSMENT AND PLAN: 1. Septic shock. Etiology secondary to bacteremia, gram-negative rods. The patient remains on pres sor support, IV fluids, antibiotic therapy. We will continue current treatment plan. Wean off press or support if possible. 2. Possible peritoneal carcinomatosis with unclear etiology, possible cholangiocarcinoma as primary source. The patient will need definitive diagnosis with possible ERCP if family agrees for further w orkup and the patient is stable. Continue to monitor closely. Appreciate oncology evaluation. 3. Anemia. Continue to monitor hemoglobin and hematocrit levels. We will continue Epogen as needed . 4. Mineral bone disorder, monitor calcium and phosphorus levels. Continue vitamin D analogs as need ed. 5. Hypokalemia and hypomagnesemia. Continue to monitor and replete as needed. 6. End-stage renal disease on hemodialysis today. 7. Volume overload. Continue ultrafiltration dialysis if hemodynamically stable. 8. Elevated troponin, non-ST elevation myocardial infarction type 2. Continue to monitor. 9. Diabetes. Continue current insulin regimen. 10. Nutrition. The patient's family refuses NG tube, tube feeding. Consider TPN. Follow up with Ana Mckay. 11. Arrhythmia with history of pacemaker. 12. Acute encephalopathy, etiology is toxic metabolic. 13. Lower extremity wounds. Continue wound care. 14. Pleural effusion. The patient is status post thoracentesis. Continue to monitor. Dictated By: ADA MORENO/CORNELIA Conf#: [id number] DID#: [id number] CC: DYLAN GREENE MD;*End*
--- NOTE | 2019-04-15 09:40 | CONS ---
Consult Date/Type/Reason Admit Date/Time Apr 01, 2019 at 17:43 Initial Consult Date 04/03/19 Type of Consult Pulmonary Requesting Provider: ADA RANGEL DO Date/Time of Note DATE: 04/15/19 TIME: 09:38 Subjective Patient appears more comfortable this morning status post thoracentesis 850 cc. No complications noted Objective Vital Signs Date Temp Pulse Resp B/P (MAP) Pulse Ox O2 O2 Flow FiO2 Time Delivery Rate 04/15/19 82 18 111/48 100 Nasal 09:00 (69) Cannula 04/15/19 97.6 08:00 04/15/19 2.0 02:17 Intake and Output 04/14/19 04/14/19 04/15/19 1515:00 23:00 07:00 IntakeIntake Total 590.625 ml 824.980 ml 590.59 ml OutputOutput Total 900 ml BalanceBalance -309.375 ml 824.980 ml 590.59 ml Exam GENERAL: Elderly appearing gentleman on nasal cannula O2. VITAL SIGNS: per chart NECK: Supple. No JVD or lymphadenopathy. CARDIAC EXAM: S1, S2. No added sounds or murmurs. CHEST: clear bilaterally, No added sounds, rales or wheezes ABDOMEN: Soft, nontender. No guarding or rebound. EXTREMITIES: No cyanosis, clubbing or edema. NEUROLOGIC: Generalized weakness. No focal deficits Vent Setting Fraction of Inspired Oxygen pe: 28 Results/Medications Result Diagram: 04/15/19 0415 04/15/19 0305 Results 24 hrs Laboratory Tests Test 04/14/19 12:56 04/14/19 16:00 04/14/19 18:02 04/14/19 20:27 Bedside Glucose 104 110 111 Body Fluid Type PLEURAL FLUID Body Fluid Volume 900.0 Body Fluid Color YELLOW Body Fluid HAZY Appearance Body Fluid WBC 192 Body Fluid RBC 1000 (Auto) Body Fluid 33.9 Polynuclear WBCs (%) Body Fluid 66.1 Mononuclear Cells % Auto Body Fluid Glucose 104 Body Fluid Total 2.1 Protein Body Fluid 402 Lactate Dehydrogen ase Test 04/15/19 02:31 04/15/19 03:05 04/15/19 04:15 04/15/19 08:00 Bedside Glucose 111 94 Sodium Level 141 Potassium Level 4.7 Chloride Level 108 Carbon Dioxide 26 Level Anion Gap 7 Blood Urea 25 #H Nitrogen Creatinine 3.44 H Est Glomerular Filtrat Rate mL/min Glucose Level 107 Calcium Level 7.8 L Phosphorus Level 3.8 Magnesium Level 2.2 White Blood Count 16.4 H Red Blood Count 3.03 L Hemoglobin 9.0 L Hematocrit 29.2 L Mean Corpuscular 96.4 Volume Mean Corpuscular 29.7 Hemoglobin Mean Corpuscular 30.8 L Hemoglobin Concent Red Cell 17.0 H Distribution Width Platelet Count 359 Mean Platelet 10.8 H Volume Immature 1.000 H Granulocytes % Neutrophils % 78.7 H Lymphocytes % 12.4 L Monocytes % 7.2 Eosinophils % 0.2 Basophils % 0.5 Nucleated Red 0.0 Blood Cells % Immature 0.170 H Granulocytes # Neutrophils # 12.9 H Lymphocytes # 2.0 Monocytes # 1.2 H Eosinophils # 0.0 Basophils # 0.1 Nucleated Red 0.0 Blood Cells # Medications Current Medications Amiodarone HCl (Cordarone) 200 mg DAILY PO Last administered on 04/15/19 08:29; Admin Dose 200 MG; Start 04/02/19 at 09:00 Aspirin (Halfprin) 81 mg DAILY PO Last administered on 04/15/19 08:29; Admin Dose 81 MG; Start 04/02/19 at 09:00 Atorvastatin Calcium (Lipitor) 20 mg QHS PO Last administered on 04/14/19 20:28; Admin Dose 20 MG; Start 04/01/19 at 21:00 Docusate Sodium (Colace) 100 mg BID PO Last administered on 04/15/19 08:29; Admin Dose 100 MG; Start 04/01/19 at 21:00 Montelukast Sodium (Singulair) 10 mg QHS PO Last administered on 04/14/19 20:2 8; Admin Dose 10 MG; Start 04/01/19 at 21:00 Sevelamer Carbonate (Renvela) 1.6 gm BID WITH MEALS PO Last administered on 04/15/19 08:28; Admin Dose 1.6 GM; Start 04/01/19 at 21:00 Albuterol/ Ipratropium (Duoneb) 3 ml Q2H RESP THERAPY PRN NEB SHORTNESS OF BREATH Last administered on 04/09/19 21:01; Admin Dose 3 ML; Start 04/01/19 at 21:00 Zolpidem Tartrate (Ambien) 5 mg QHS PRN PO INSOMNIA Last administered on 04/13/19at 21:58; Admin Dose 5 MG; Start 04/01/19 at 21:00 Norepinephrine 250 ml @ 1.875 mls/ hr TITRATE IV Last administered on 04/14/19at 21:58; Admin Dose 9.53 MLS/HR; Start 04/02/19 at 02:30 IV Flush (NS 10 ml) 10 ml PRN PRN IV IV PROTOCOL; Start 04/03/19 at 17:00 Epoetin Jatinder-epbx (Retacrit (Esrd)) 10,000 unit AFTER EACH DIALYSIS SC Last administered on 04/10/19at 15:55; Admin Dose 10,000 UNIT; Start 04/04/19 at 16:00 Miscellaneous Information 1 ea NOTE XX ; Start 04/05/19 at 11:30 Glucose (Glutose) 15 gm Q15M PRN PO DECREASED GLUCOSE; Start 04/05/19 at 11:30 Glucose (Glutose) 22.5 gm Q15M PRN PO DECREASED GLUCOSE; Start 04/05/19 at 11:30 Dextrose (D50w Syringe) 25 ml Q15M PRN IV DECREASED GLUCOSE Last administered on 04/11/19at 11:46; Admin Dose 25 ML; Start 04/05/19 at 11:30 Dextrose (D50w Syringe) 50 ml Q15M PRN IV DECREASED GLUCOSE; Start 04/05/19 at 11:30 Glucagon (Glucagen) 1 mg Q15M PRN IM DECREASED GLUCOSE; Start 04/05/19 at 11:30 Glucose (Glutose) 15 gm Q15M PRN BUCCAL DECREASED GLUCOSE; Start 04/05/19 at 11:30 Diagnostic Test (Pha) (Accu-Chek) 1 ea 02 XX Last administered on 04/14/19at 01:31; Admin Dose 1 EA; Start 04/06/19 at 02:00 Insulin Aspart (Novolog Insulin Pen) NOVOLOG *MILD* ALGORITHM WITH MEALS BEDTIME SC Last administered on 04/10/19at 20:26; Admin Dose 1 UNIT; Start 04/05/19 at 17:35 Insulin Glargine (Lantus) 20 units DAILY@2000 SC Last administered on 04/14/19at 20:03; Admin Dose 20 UNITS; Start 04/06/19 at 20:00 Ondansetron HCl (Zofran Inj) 4 mg Q6H PRN IV NAUSEA AND/OR VOMITING; Start 04/07/19 at 17:00 Metronidazole 100 ml @ 100 mls/hr Q8 IVPB Last administered on 04/15/19at 06:14; Admin Dose 100 MLS/HR; Start 04/11/19 at 15:30 Midodrine (Proamatine) 10 mg TID@0900,1300,1700 PO Last administered on 04/15/19at 08:31; Admin Dose 10 MG; Start 04/12/19 at 09:00 Dextrose/Sodium Chloride 1,000 ml @ 50 mls/hr Q20H IV Last administered on 04/15/19at 00:00; Admin Dose 75 MLS/HR; Start 04/13/19 at 08:00 Assessment/Plan Hospital Course (Demo Recall) Assessment 1. Septic shock requiring vasopressor support blood cultures positive for Bacteroides ongoing vasopressor requirement 2. History of end-stage renal failure on hemodialysis 3. History of cholangiocarcinoma. 4. History of arrhythmia with pacemaker 5. Diabetes mellitus 6. Dysphagia remains risk of aspiration. 7. Encephalopathy toxic metabolic, appears to be slowly improving 8. Hypoxemic respiratory failure with pleural effusion status post thoracentesis. Plan 1. Continue supplemental O2 as needed 2. Hemodialysis as tolerated. 3. Continue antibiotics per ID 4. Thoracentesis left lung. Pleural fluid studies now pending. 5. Titrate vasopressors to keep map greater than 65, no evidence of adrenal insufficiency with normal cortisol level noted. 6. Speech therapy recommendations aspiration precautions. Critical care time 40 minutes Appreciate palliative care recommendations. Family had declined nasogastric and G tube. TRAE TRAVIS MD, [facility] Apr 15, 2019 09:39
--- NOTE | 2019-04-15 10:52 | CONS ---
Assessment/Plan Assessment/Plan Assessment/Plan (Daily) Assessment/Plan Assessment/Plan (Daily) 1. Severe sepsis. -Bacteremia with possible intra-abdominal etiology 2. Ascites. 3. Pneumonia. 4. Hepatocellular cancer with carcinomatosis. -CA 199 1000 and alpha-fetoprotein was within normal limit. This cancer cell marker are more in favor of cholangiocarcinoma rather than hepatocellular cancer. 5. Diabetes mellitus. 6. Atrial fibrillation. 7. Congestive heart failure. 8. Dilated left-sided biliary system. The most probably has a cholangiocarcinoma needs stenting 9. Anemia. -positive fob, low iron, tibc, %sat, high ferritin 10. Patient is still fluid overload Plan -Monitor HH and for acute GI bleeding -Pt needs ERCP but deemed too unstable per anesthesiology. No cardiac clearance given yet. Still requiring pressor support Patient is still on pressor support and has a volume overload. Needs dialysis and fluid to be removed as tolerated by patient with albumin infusion Aspiration precaution Consultation Date/Type/Reason Admit Date/Time Apr 01, 2019 at 17:43 Initial Consult Date 04/03/19 Requesting Provider: ADA RANGEL DO Date/Time of Note DATE: 04/15/19 TIME: 10:51 24 HR Interval Summary Free Text/Dictation No abdominal pain no nausea no vomiting. 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, nl mental status, nl speech, nl strength Results Result Diagram: 04/15/19 0415 04/15/19 0305 Results 24hrs Laboratory Tests Test 04/14/19 12:56 04/14/19 16:00 04/14/19 18:02 04/14/19 20:27 Bedside Glucose 104 110 111 Body Fluid Type PLEURAL FLUID Body Fluid Volume 900.0 Body Fluid Color YELLOW Body Fluid HAZY Appearance Body Fluid WBC 192 Body Fluid RBC 1000 (Auto) Body Fluid 33.9 Polynuclear WBCs (%) Body Fluid 66.1 Mononuclear Cells % Auto Body Fluid Glucose 104 Body Fluid Total 2.1 Protein Body Fluid 402 Lactate Dehydrogen ase Test 04/15/19 02:31 04/15/19 03:05 04/15/19 04:15 04/15/19 08:00 Bedside Glucose 111 94 Sodium Level 141 Potassium Level 4.7 Chloride Level 108 Carbon Dioxide 26 Level Anion Gap 7 Blood Urea 25 #H Nitrogen Creatinine 3.44 H Est Glomerular Filtrat Rate mL/min Glucose Level 107 Calcium Level 7.8 L Phosphorus Level 3.8 Magnesium Level 2.2 White Blood Count 16.4 H Red Blood Count 3.03 L Hemoglobin 9.0 L Hematocrit 29.2 L Mean Corpuscular 96.4 Volume Mean Corpuscular 29.7 Hemoglobin Mean Corpuscular 30.8 L Hemoglobin Concent Red Cell 17.0 H Distribution Width Platelet Count 359 Mean Platelet 10.8 H Volume Immature 1.000 H Granulocytes % Neutrophils % 78.7 H Lymphocytes % 12.4 L Monocytes % 7.2 Eosinophils % 0.2 Basophils % 0.5 Nucleated Red 0.0 Blood Cells % Immature 0.170 H Granulocytes # Neutrophils # 12.9 H Lymphocytes # 2.0 Monocytes # 1.2 H Eosinophils # 0.0 Basophils # 0.1 Nucleated Red 0.0 Blood Cells # Medications Medication Current Medications Amiodarone HCl (Cordarone) 200 mg DAILY PO Last administered on 04/15/19 08:29; Admin Dose 200 MG; Start 04/02/19 at 09:00 Aspirin (Halfprin) 81 mg DAILY PO Last administered on 04/15/19 08:29; Admin Dose 81 MG; Start 04/02/19 at 09:00 Atorvastatin Calcium (Lipitor) 20 mg QHS PO Last administered on 04/14/19 20:28; Admin Dose 20 MG; Start 04/01/19 at 21:00 Docusate Sodium (Colace) 100 mg BID PO Last administered on 04/15/19 08:29; Admin Dose 100 MG; Start 04/01/19 at 21:00 Montelukast Sodium (Singulair) 10 mg QHS PO Last administered on 04/14/19 20:28; Admin Dose 10 MG; Start 04/01/19 at 21:00 Sevelamer Carbonate (Renvela) 1.6 gm BID WITH MEALS PO Last administered on 04/15/19 08:28; Admin Dose 1.6 GM; Start 04/01/19 at 21:00 Albuterol/ Ipratropium (Duoneb) 3 ml Q2H RESP THERAPY PRN NEB SHORTNESS OF BREATH Last administered on 04/09/19 21:01; Admin Dose 3 ML; Start 04/01/19 at 21:00 Zolpidem Tartrate (Ambien) 5 mg QHS PRN PO INSOMNIA Last administered on 04/13/19 21:58; Admin Dose 5 MG; Start 04/01/19 at 21:00 Norepinephrine 250 ml @ 1.875 mls/ hr TITRATE IV Last administered on 04/14/19 21:58; Admin Dose 9.53 MLS/HR; Start 04/02/19 at 02:30 IV Flush (NS 10 ml) 10 ml PRN PRN IV IV PROTOCOL; Start 04/03/19 at 17:00 Epoetin Jatinder-epbx (Retacrit (Esrd)) 10,000 unit AFTER EACH DIALYSIS SC Last administered on 04/10/19 15:55; Admin Dose 10,000 UNIT; Start 04/04/19 at 16:00 Miscellaneous Information 1 ea NOTE XX ; Start 04/05/19 at 11:30 Glucose (Glutose) 15 gm Q15M PRN PO DECREASED GLUCOSE; Start 04/05/19 at 11:30 Glucose (Glutose) 22.5 gm Q15M PRN PO DECREASED GLUCOSE; Start 04/05/19 at 11:30 Dextrose (D50w Syringe) 25 ml Q15M PRN IV DECREASED GLUCOSE Last administered on 04/11/19 11:46; Admin Dose 25 ML; Start 04/05/19 at 11:30 Dextrose (D50w Syringe) 50 ml Q15M PRN IV DECREASED GLUCOSE; Start 04/05/19 at 11:30 Glucagon (Glucagen) 1 mg Q15M PRN IM DECREASED GLUCOSE; Start 04/05/19 at 11:30 Glucose (Glutose) 15 gm Q15M PRN BUCCAL DECREASED GLUCOSE; Start 04/05/19 at 11:30 Diagnostic Test (Pha) (Accu-Chek) 1 ea 02 XX Last administered on 04/14/19at 01:31; Admin Dose 1 EA; Start 04/06/19 at 02:00 Insulin Aspart (Novolog Insulin Pen) NOVOLOG *MILD* ALGORITHM WITH MEALS BEDTIME SC Last administered on 04/10/19 20:26; Admin Dose 1 UNIT; Start 04/05/19 at 17:35 Insulin Glargine (Lantus) 20 units DAILY@2000 SC Last administered on 04/14/19 20:03; Admin Dose 20 UNITS; Start 04/06/19 at 20:00 Ondansetron HCl (Zofran Inj) 4 mg Q6H PRN IV NAUSEA AND/OR VOMITING; Start 04/07/19 at 17:00 Metronidazole 100 ml @ 100 mls/hr Q8 IVPB Last administered on 04/15/19at 06:14; Admin Dose 100 MLS/HR; Start 04/11/19 at 15:30 Midodrine (Proamatine) 10 mg TID@0900,1300,1700 PO Last administered on 04/15/19 08:31; Admin Dose 10 MG; Start 04/12/19 at 09:00 Dextrose/Sodium Chloride 1,000 ml @ 50 mls/hr Q20H IV Last administered on 04/15/19 00:00; Admin Dose 75 MLS/HR; Start 04/13/19 at 08:00 OLIVIA CANTOR MD Apr 15, 2019 10:52
--- NOTE | 2019-04-15 13:51 | CONS ---
Assessment/Plan Assessment/Plan Hospital Course (Demo Recall) No acute events patient remains on Levophed drip in no distress afebrile. Son at bedside. WBC 16.4 platelets 359 neutrophils 78.7. Chest x-ray this morning revealed increased CHF Indwelling's: PICC line and upper extremity fistula Antimicrobials: Flagyl Microbiology: Blood culture on admission grew Bacteroides fragilis, repeat cx neg Physical examination: This is an obese well-developed chronically ill elderly German man who is in no distress. Head atraumatic normocephalic neck is supple chest rise symmetrical breath sounds diminished bases. Heart: S1-S2. Tachycardic abdomen soft obese bowel sounds hypoactive extremities without cyanosis, trace edema Assessment: 1. Sepsis with shock 2. Bacteremia ? source==>likely intraabdominal 3. End-stage renal disease, hemodialysis dependent 4. Recently diagnosed hepatocellular carcinoma, poss obstructing mass and peritoneal carcinomatosis 5. Coronary artery disease status post permanent pacemaker 6. Diabetes 7. Atrial fibrillation Plan: Remains unchanged, continue antibiotics, GI recommendations noted, not stable for ERCP Consultation Date/Type/Reason Admit Date/Time Apr 01, 2019 at 17:43 Initial Consult Date 04/03/19 Type of Consult id Requesting Provider: ADA RANGEL DO Date/Time of Note DATE: 04/15/19 TIME: 13:51 Exam/Review of Systems Exam Vitals Vital Signs Date Temp Pulse Resp B/P (MAP) Pulse Ox O2 O2 Flow FiO2 Time Delivery Rate 04/15/19 82 12:00 04/15/19 18 111/48 100 Nasal 09:00 (69) Cannula 04/15/19 97.6 08:00 04/15/19 2.0 08:00 Intake and Output 04/14/19 04/14/19 04/15/19 1515:00 23:00 07:00 IntakeIntake Total 590.625 ml 824.980 ml 590.59 ml OutputOutput Total 900 ml BalanceBalance -309.375 ml 824.980 ml 590.59 ml Results Result Diagram: 04/15/19 0415 04/15/19 0305 Results 24hrs Laboratory Tests Test 04/14/19 16:00 04/14/19 18:02 04/14/19 20:27 04/15/19 02:31 Body Fluid Type PLEURAL FLUID Body Fluid Volume 900.0 Body Fluid Color YELLOW Body Fluid HAZY Appearance Body Fluid WBC 192 Body Fluid RBC 1000 (Auto) Body Fluid 33.9 Polynuclear WBCs (%) Body Fluid 66.1 Mononuclear Cells % Auto Body Fluid Glucose 104 Body Fluid Total 2.1 Protein Body Fluid 402 Lactate Dehydrogen ase Bedside Glucose 110 111 111 Test 04/15/19 03:05 04/15/19 04:15 04/15/19 08:00 04/15/19 11:31 Sodium Level 141 Potassium Level 4.7 Chloride Level 108 Carbon Dioxide 26 Level Anion Gap 7 Blood Urea 25 #H Nitrogen Creatinine 3.44 H Est Glomerular Filtrat Rate mL/min Glucose Level 107 Calcium Level 7.8 L Phosphorus Level 3.8 Magnesium Level 2.2 White Blood Count 16.4 H Red Blood Count 3.03 L Hemoglobin 9.0 L Hematocrit 29.2 L Mean Corpuscular 96.4 Volume Mean Corpuscular 29.7 Hemoglobin Mean Corpuscular 30.8 L Hemoglobin Concent Red Cell 17.0 H Distribution Width Platelet Count 359 Mean Platelet 10.8 H Volume Immature 1.000 H Granulocytes % Neutrophils % 78.7 H Lymphocytes % 12.4 L Monocytes % 7.2 Eosinophils % 0.2 Basophils % 0.5 Nucleated Red 0.0 Blood Cells % Immature 0.170 H Granulocytes # Neutrophils # 12.9 H Lymphocytes # 2.0 Monocytes # 1.2 H Eosinophils # 0.0 Basophils # 0.1 Nucleated Red 0.0 Blood Cells # Bedside Glucose 94 117 Medications Medication Current Medications Amiodarone HCl (Cordarone) 200 mg DAILY PO Last administered on 04/15/19 08:29; Admin Dose 200 MG; Start 04/02/19 at 09:00 Aspirin (Halfprin) 81 mg DAILY PO Last administered on 04/15/19 08:29; Admin Dose 81 MG; Start 04/02/19 at 09:00 Atorvastatin Calcium (Lipitor) 20 mg QHS PO Last administered on 04/14/19 20:28; Admin Dose 20 MG; Start 04/01/19 at 21:00 Docusate Sodium (Colace) 100 mg BID PO Last administered on 04/15/19 08:29; Admin Dose 100 MG; Start 04/01/19 at 21:00 Montelukast Sodium (Singulair) 10 mg QHS PO Last administered on 6/28/19at 20:28; Admin Dose 10 MG; Start 04/01/19 at 21:00 Sevelamer Carbonate (Renvela) 1.6 gm BID WITH MEALS PO Last administered on 04/15/19at 08:28; Admin Dose 1.6 GM; Start 04/01/19 at 21:00 Albuterol/ Ipratropium (Duoneb) 3 ml Q2H RESP THERAPY PRN NEB SHORTNESS OF BREATH Last administered on 04/09/19at 21:01; Admin Dose 3 ML; Start 04/01/19 at 21:00 Zolpidem Tartrate (Ambien) 5 mg QHS PRN PO INSOMNIA Last administered on 04/13/19at 21:58; Admin Dose 5 MG; Start 04/01/19 at 21:00 Norepinephrine 250 ml @ 1.875 mls/ hr TITRATE IV Last administered on 04/14/19at 21:58; Admin Dose 9.53 MLS/HR; Start 04/02/19 at 02:30 IV Flush (NS 10 ml) 10 ml PRN PRN IV IV PROTOCOL; Start 04/03/19 at 17:00 Epoetin Jatinder-epbx (Retacrit (Esrd)) 10,000 unit AFTER EACH DIALYSIS SC Last administered on 04/10/19at 15:55; Admin Dose 10,000 UNIT; Start 04/04/19 at 16:00 Miscellaneous Information 1 ea NOTE XX ; Start 04/05/19 at 11:30 Glucose (Glutose) 15 gm Q15M PRN PO DECREASED GLUCOSE; Start 04/05/19 at 11:30 Glucose (Glutose) 22.5 gm Q15M PRN PO DECREASED GLUCOSE; Start 04/05/19 at 11:30 Dextrose (D50w Syringe) 25 ml Q15M PRN IV DECREASED GLUCOSE Last administered on 04/11/19at 11:46; Admin Dose 25 ML; Start 04/05/19 at 11:30 Dextrose (D50w Syringe) 50 ml Q15M PRN IV DECREASED GLUCOSE; Start 04/05/19 at 11:30 Glucagon (Glucagen) 1 mg Q15M PRN IM DECREASED GLUCOSE; Start 04/05/19 at 11:30 Glucose (Glutose) 15 gm Q15M PRN BUCCAL DECREASED GLUCOSE; Start 04/05/19 at 11:30 Diagnostic Test (Pha) (Accu-Chek) 1 ea 02 XX Last administered on 04/14/19 01:31; Admin Dose 1 EA; Start 04/06/19 at 02:00 Insulin Aspart (Novolog Insulin Pen) NOVOLOG *MILD* ALGORITHM WITH MEALS BEDTIME SC Last administered on 04/10/19 20:26; Admin Dose 1 UNIT; Start 04/05/19 at 17:35 Insulin Glargine (Lantus) 20 units DAILY@2000 SC Last administered on 04/14/19 20:03; Admin Dose 20 UNITS; Start 04/06/19 at 20:00 Ondansetron HCl (Zofran Inj) 4 mg Q6H PRN IV NAUSEA AND/OR VOMITING; Start 04/07/19 at 17:00 Metronidazole 100 ml @ 100 mls/hr Q8 IVPB Last administered on 04/15/19 06:14; Admin Dose 100 MLS/HR; Start 04/11/19 at 15:30 Midodrine (Proamatine) 10 mg TID@0900,1300,1700 PO Last administered on 04/15/19 08:31; Admin Dose 10 MG; Start 04/12/19 at 09:00 Dextrose/Sodium Chloride 1,000 ml @ 50 mls/hr Q20H IV Last administered on 04/15/19 00:00; Admin Dose 75 MLS/HR; Start 04/13/19 at 08:00 JOAO RAHMAN NP Apr 15, 2019 13:51
--- NOTE | 2019-04-15 13:55 | CONS ---
Consult Date/Type/Reason Admit Date/Time Apr 01, 2019 at 17:43 Initial Consult Date 04/03/19 Type of Consultation: cv Requesting Provider: ADA RANGEL DO Date/Time of Note DATE: 04/15/19 TIME: 13:52 Subjective Subjective: Discussed with the staff. Telemetry was reviewed. Patient has remained in PACED rhythm mostly d/w phyaicians d/w son Patient remains in ICU and hypotensive and remains on levophed drip No report of any chest pain or pressure he denies PND orthopnea to me Objective: General: no acute distress HEENT: NC/AT. pupils are equal. round. NECK: no stridor. CV: RRR. systolic murmur; no gallop or rubs. PULM: no wheezing or rhonchi. GI: SOFT, NT, ND, no rebound or guarding Extremity: + B/L LE edema. no clubbing. neuro: awake Psych: calm rectal: deferred EKG shows ventricular paced rhythm Chest x-ray done 03/24/2019 shows: 1. New left-sided PICC in proximal SVC. 2. Persistent small left-sided pleural effusion with left lung base atelectasis/infiltrate. 3. Persistent patchy opacity of the right lung base. 4. Persistent cardiomegaly with mild vascular congestion CT 1. Again noted is severe dilatation of left intrahepatic biliary ducts. No gross evidence of hepatic mass is seen, though sensitivity is markedly limited without IV contrast. Findings remain concerning for obstructive mass in the central left hepatic lobe, as described in the prior CT report. 2. Findings compatible with peritoneal carcinomatosis. Moderate ascites, grossly stable. 3. Stable mild cardiomegaly. Coronary arterial and aortoiliac atherosclerotic calcifications. 4. Mild to moderate bilateral pleural effusions, grossly stable. Bibasilar atelectasis. 5. Cholelithiasis, without evidence for cholecystitis. 6. Chronic bilateral renal cortical thinning and atrophy, unchanged. Objective Vitals Vital Signs Date Temp Pulse Resp B/P (MAP) Pulse Ox O2 O2 Flow FiO2 Time Delivery Rate 04/15/19 82 12:00 04/15/19 18 111/48 100 Nasal 09:00 (69) Cannula 04/15/19 97.6 08:00 04/15/19 2.0 08:00 Intake and Output 04/14/19 04/14/1904/15/19 1515:00 23:00 07:00 IntakeIntake Total 590.625 ml 824.980 ml 590.59 ml OutputOutput Total 900 ml BalanceBalance -309.375 ml 824.980 ml 590.59 ml Results/Medications Result Diagram: 04/15/19 0415 04/15/19 0305 Results 24 hrs Laboratory Tests Test 04/14/19 16:00 04/14/19 18:02 04/14/19 20:27 04/15/19 02:31 Body Fluid Type PLEURAL FLUID Body Fluid Volume 900.0 Body Fluid Color YELLOW Body Fluid HAZY Appearance Body Fluid WBC 192 Body Fluid RBC 1000 (Auto) Body Fluid 33.9 Polynuclear WBCs (%) Body Fluid 66.1 Mononuclear Cells % Auto Body Fluid Glucose 104 Body Fluid Total 2.1 Protein Body Fluid 402 Lactate Dehydrogen ase Bedside Glucose 110 111 111 Test 04/15/19 03:05 04/15/19 04:15 04/15/19 08:00 04/15/19 11:31 Sodium Level 141 Potassium Level 4.7 Chloride Level 108 Carbon Dioxide 26 Level Anion Gap 7 Blood Urea 25 #H Nitrogen Creatinine 3.44 H Est Glomerular Filtrat Rate mL/min Glucose Level 107 Calcium Level 7.8 L Phosphorus Level 3.8 Magnesium Level 2.2 White Blood Count 16.4 H Red Blood Count 3.03 L Hemoglobin 9.0 L Hematocrit 29.2 L Mean Corpuscular 96.4 Volume Mean Corpuscular 29.7 Hemoglobin Mean Corpuscular 30.8 L Hemoglobin Concent Red Cell 17.0 H Distribution Width Platelet Count 359 Mean Platelet 10.8 H Volume Immature 1.000 H Granulocytes % Neutrophils % 78.7 H Lymphocytes % 12.4 L Monocytes % 7.2 Eosinophils % 0.2 Basophils % 0.5 Nucleated Red 0.0 Blood Cells % Immature 0.170 H Granulocytes # Neutrophils # 12.9 H Lymphocytes # 2.0 Monocytes # 1.2 H Eosinophils # 0.0 Basophils # 0.1 Nucleated Red 0.0 Blood Cells # Bedside Glucose 94 117 Home Meds Reported Medications Docusate Sodium* (Docusate Sodium*) 100 Mg Capsule, 100 MG PO BID, #60 CAP 04/01/19 Metoprolol Succinate* (Toprol XL*) 25 Mg Tab.sr.24h, 25 MG PO DAILY, #30 TAB 04/01/19 Aspirin* (Aspirin* EC) 81 Mg Tablet.dr, 81 MG PO DAILY, TAB 04/01/19 Fenofibrate, Micronized (Fenofibrate) 134 Mg Capsule, 134 MG PO DAILY, CAP 04/01/19 Sevelamer Carbonate* (Renvela*) 800 Mg Tablet, 1.6 GM PO BID, TAB 04/01/19 Amiodarone Hcl* (Amiodarone Hcl*) 200 Mg Tablet, 200 MG PO DAILY, #30 TAB TAKE Q TUES,TH,SAT WITH DIALYSIS 04/01/19 Montelukast Sodium* (Montelukast Sodium*) 10 Mg Tablet, 10 MG PO QHS, #30 TAB 04/01/19 [Nephro-Elieser] No Conflict Check, 1 TAB PO DAILY 04/01/19 Sacubitril/Valsartan (Entresto 24 mg-26 mg Tablet) 1 Each Tablet, 1 EACH PO BID, TAB 04/01/19 Midodrine* (Midodrine*) 5 Mg Tablet, 5 MG PO DAILY, TAB 04/01/19 Furosemide* (Furosemide*) 40 Mg Tablet, 40 MG PO DAILY, TAB 04/01/19 Atorvastatin Calcium* (Atorvastatin Calcium*) 20 Mg Tablet, 20 MG PO QHS, #30 TAB 04/01/19 Medications Current Medications Amiodarone HCl (Cordarone) 200 mg DAILY PO Last administered on 04/15/19at 08:29; Admin Dose 200 MG; Start 04/02/19 at 09:00 Aspirin (Halfprin) 81 mg DAILY PO Last administered on 04/15/19at 08:29; Admin Dose 81 MG; Start 04/02/19 at 09:00 Atorvastatin Calcium (Lipitor) 20 mg QHS PO Last administered on 04/14/19at 20:28; Admin Dose 20 MG; Start 04/01/19 at 21:00 Docusate Sodium (Colace) 100 mg BID PO Last administered on 04/15/19at 08:29; Admin Dose 100 MG; Start 04/01/19 at 21:00 Montelukast Sodium (Singulair) 10 mg QHS PO Last administered on 04/14/19at 20:28; Admin Dose 10 MG; Start 04/01/19 at 21:00 Sevelamer Carbonate (Renvela) 1.6 gm BID WITH MEALS PO Last administered on 04/15/19 08:28; Admin Dose 1.6 GM; Start 04/01/19 at 21:00 Albuterol/ Ipratropium (Duoneb) 3 ml Q2H RESP THERAPY PRN NEB SHORTNESS OF BREATH Last administered on 04/09/19 21:01; Admin Dose 3 ML; Start 04/01/19 at 21:00 Zolpidem Tartrate (Ambien) 5 mg QHS PRN PO INSOMNIA Last administered on 04/13/19 21:58; Admin Dose 5 MG; Start 04/01/19 at 21:00 Norepinephrine 250 ml @ 1.875 mls/ hr TITRATE IV Last administered on 04/14/19 21:58; Admin Dose 9.53 MLS/HR; Start 04/02/19 at 02:30 IV Flush (NS 10 ml) 10 ml PRN PRN IV IV PROTOCOL; Start 04/03/19 at 17:00 Epoetin Jatinder-epbx (Retacrit (Esrd)) 10,000 unit AFTER EACH DIALYSIS SC Last administered on 04/10/19 15:55; Admin Dose 10,000 UNIT; Start 04/04/19 at 16:00 Miscellaneous Information 1 ea NOTE XX ; Start 04/05/19 at 11:30 Glucose (Glutose) 15 gm Q15M PRN PO DECREASED GLUCOSE; Start 04/05/19 at 11:30 Glucose (Glutose) 22.5 gm Q15M PRN PO DECREASED GLUCOSE; Start 04/05/19 at 11:30 Dextrose (D50w Syringe) 25 ml Q15M PRN IV DECREASED GLUCOSE Last administered on 04/11/19 11:46; Admin Dose 25 ML; Start 04/05/19 at 11:30 Dextrose (D50w Syringe) 50 ml Q15M PRN IV DECREASED GLUCOSE; Start 04/05/19 at 11:30 Glucagon (Glucagen) 1 mg Q15M PRN IM DECREASED GLUCOSE; Start 04/05/19 at 11:30 Glucose (Glutose) 15 gm Q15M PRN BUCCAL DECREASED GLUCOSE; Start 04/05/19 at 11:30 Diagnostic Test (Pha) (Accu-Chek) 1 ea 02 XX Last administered on 04/14/19at 01:31; Admin Dose 1 EA; Start 04/06/19 at 02:00 Insulin Aspart (Novolog Insulin Pen) NOVOLOG *MILD* ALGORITHM WITH MEALS BEDTIME SC Last administered on 04/10/19 20:26; Admin Dose 1 UNIT; Start 04/05/19 at 17:35 Insulin Glargine (Lantus) 20 units DAILY@2000 SC Last administered on 04/14/19 20:03; Admin Dose 20 UNITS; Start 04/06/19 at 20:00 Ondansetron HCl (Zofran Inj) 4 mg Q6H PRN IV NAUSEA AND/OR VOMITING; Start 04/07/19 at 17:00 Metronidazole 100 ml @ 100 mls/hr Q8 IVPB Last administered on 04/15/19 06:14; Admin Dose 100 MLS/HR; Start 04/11/19 at 15:30 Midodrine (Proamatine) 10 mg TID@0900,1300,1700 PO Last administered on 04/15/19 08:31; Admin Dose 10 MG; Start 04/12/19 at 09:00 Dextrose/Sodium Chloride 1,000 ml @ 50 mls/hr Q20H IV Last administered on 04/15/19 00:00; Admin Dose 75 MLS/HR; Start 04/13/19 at 08:00 Assessment/Plan Hospital Course (Demo Recall) Mildly abnormal troponin secondary to sepsis renal failure etc. Sepsis/pneumonia GNR bacteremia/ septic shock Pneumonia ? cholangiocarcinoma Renal failure dialysis dependent History of arrhythmia probably sick sinus syndrome versus heart block status post MRI compatible [employer] permanent pacemaker Encephalopathy Paroxysmal atrial fibrillation Recommendations: aspirin as long as ok with GI and no active bleeding is noted Antibiotic management as per internal medicine and consultants Continue to be hemodialysis as tolerated Unable to tolerate beta-damian due to his low blood pressure levophed as needed f/u GI consultation rec cortisol level in AM was wnl. Pacemaker card reviewed. pacemaker is an MRI compatible and MRI can be done . need to call [employer] rep to change the pacemaker setting right before and a fter the [facility]. PLEASE CONTACT [employer] rep (Rubio at [phone]) to arrange for setting change fluid management as per renal f/u Palliative care consult rec Thank you for this referral. We will continue to follow along with you JOSE D SOLOMON MD [facility] JOSE D SOLOMON MD Apr 15, 2019 13:55
[2019-04-15] MEDS: DEXTROSE 5%-0.9% NACL 1,000 ML IV SCH ×2 (16:28)
[2019-04-15] MEDS: ATORVASTATIN 20 MG TAB PO SCH (20:53)
[2019-04-15] MEDS: MONTELUKAST 10 MG TAB PO SCH (20:53)
[2019-04-15] MEDS: INSULIN GLARGINE [LANTus] (100 UNITS/ML) SYG SC SCH (20:59)
[2019-04-15] MEDS: ZOLPIDEM 5 MG TAB PO PRN (21:58)
[2019-04-15] MEDS: NORepinephrine 8MG/250 ML (PMX 250 ML IV SCH (23:22)
[2019-04-16] VITALS (95 sets, daily range): BP systolic 71–193; BP diastolic 21–156; PULSE 61–113; RESP 11–36
[2019-04-16] MEDS: ACCU-CHEK XX SCH (01:42)
[2019-04-16] MEDS: metroNIDAZOLE 500 MG/NS (PMX) 100 ML IVPB SCH (05:54)
[2019-04-16] MEDS: INSULIN ASPART [NOVOLOG] 3 ML PEN SC SCH ×4 (07:35→20:22)
[2019-04-16] MEDS: SEVELAMER CARBONATE 0.8 GM PKT PO SCH ×2 (07:35→17:31)
[2019-04-16] MEDS: DOCUSATE SODIUM 100 MG CAP PO SCH ×2 (09:00→20:21)
[2019-04-16] MEDS: ASPIRIN (EC) 81 MG TAB PO SCH (09:00)
[2019-04-16] MEDS: MIDODRINE 5 MG TAB PO SCH ×3 (09:00→17:00)
[2019-04-16] MEDS: AMIODARONE 200 MG TAB PO SCH (09:00)
[2019-04-16] MEDS: BALSAM PERU/CASTOR OIL 60 GM TUBE TOP SCH ×2 (09:00→20:22)
--- NOTE | 2019-04-16 09:56 | PN ---
DATE: 04/16/2019 SUBJECTIVE: The patient last night was made DNR. The patient remains on pressor support. No other events noted. No hemoptysis, hematemesis or hematochezia. OBJECTIVE: VITAL SIGNS: Blood pressure is 93/57, respirations 16, pulse 91, temperature 98.6. HEENT: Head is normocephalic. NECK: Supple. HEART: Regular rate. LUNGS: Show diminished breath sounds at the base. ABDOMEN: Soft, nontender to palpation. No rebound or guarding. EXTREMITIES: Negative for clubbing, cyanosis. Positive edema. DERMATOLOGIC: No rashes. MUSCULOSKELETAL: No joint effusion. NEUROLOGIC: No change in exam. MEDICATIONS: Reviewed. LABORATORY DATA: Reviewed. IMAGING STUDIES: Reviewed. ASSESSMENT AND PLAN: 1. Septic shock. Etiology is secondary to gram-negative bacteremia. The patient remains on pressor support, IV fluids, antibiotic therapy. Unable to wean the patient off pressors. We will continue current treatment plan. Continue supportive care. 2. 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 The patie nt will need definitive diagnosis with ERCP if family agrees. At this point, the patient has remaine d unstable. Appreciate Oncology/GI evaluation. 3. Anemia. Continue to monitor hemoglobin and hematocrit levels. We will give Epogen as needed. 4. Mineral bone disorder, monitor calcium and phosphorus levels. 5. End-stage renal disease. Plan is for hemodialysis today. We will dialyze for 3 hours 2k bath, c alcium 2.5, ultrafiltrate as tolerated. 6. Volume overload. Continue ultrafiltration with hemodialysis. 7. Diabetes. Continue current insulin regimen. 8. Nutrition. The patient is currently n.p.o. We will discuss with GI about initiating TPN. 9. Arrhythmia with history of pacemaker. 10. Acute encephalopathy, etiology is toxic metabolic. 11. Lower extremity wounds. Continue wound care. 12. Pleural effusion, status post thoracentesis. Dictated By: ADA RANGEL DO NR/NTS Conf#: [id number] DID#: [id number] CC: DYLAN GREENE MD; TRAE TRAVIS MD;*EndCC*
--- NOTE | 2019-04-16 10:24 | CONS ---
Consult Date/Type/Reason Admit Date/Time Apr 01, 2019 at 17:43 Initial Consult Date 04/03/19 Type of Consult Pulmonary Requesting Provider: ADA RANGEL DO Date/Time of Note DATE: 04/16/19 TIME: 10:23 Subjective Patient still somewhat somnolent this morning on nasal cannula O2 still requiring vasopressor support. Objective Vital Signs Date Temp Pulse Resp B/P (MAP) Pulse Ox O2 O2 Flow FiO2 Time Delivery Rate 04/16/19 91 22 09:30 04/16/19 102/55 09:15 (71) 04/16/19 Nasal 09:00 Cannula 04/16/19 98 08:00 04/16/19 4.0 07:00 04/16/19 98.4 05:00 Intake and Output 04/15/19 04/15/19 04/16/19 1515:00 23:00 07:00 IntakeIntake Total 904.96 ml 815.93 ml 595.57 ml BalanceBalance 904.96 ml 815.93 ml 595.57 ml Exam GENERAL: Elderly appearing gentleman on nasal cannula O2. VITAL SIGNS: per chart NECK: Supple. No JVD or lymphadenopathy. CARDIAC EXAM: S1, S2. No added sounds or murmurs. CHEST: clear bilaterally, No added sounds, rales or wheezes ABDOMEN: Soft, nontender. No guarding or rebound. EXTREMITIES: No cyanosis, clubbing or edema. NEUROLOGIC: Generalized weakness. No focal deficits Vent Setting Fraction of Inspired Oxygen pe: 28 Results/Medications Result Diagram: 04/16/19 0430 04/16/19 0430 Results 24 hrs Laboratory Tests Test 04/15/19 11:31 04/15/19 17:30 04/15/19 20:46 04/16/19 04:30 Bedside Glucose 117 137 172 White Blood Count 26.4 #H Red Blood Count 2.93 L Hemoglobin 8.8 L Hematocrit 29.3 L Mean Corpuscular 100.0 Volume Mean Corpuscular 30.0 Hemoglobin Mean Corpuscular 30.0 L Hemoglobin Concent Red Cell 17.3 H Distribution Width Platelet Count 350 Mean Platelet Volume 10.7 H Immature 2.000 H Granulocytes % Neutrophils % 80.2 H Lymphocytes % 12.2 L Monocytes % 5.3 Eosinophils % 0.0 Basophils % 0.3 Nucleated Red Blood 0.0 Cells % Immature 0.530 H Granulocytes # Neutrophils # 21.2 H Lymphocytes # 3.2 H Monocytes # 1.4 H Eosinophils # 0.0 Basophils # 0.1 Nucleated Red Blood 0.0 Cells # Sodium Level 141 Potassium Level 5.3 H Chloride Level 108 Carbon Dioxide Level 22 Anion Gap 11 Blood Urea Nitrogen 32 H Creatinine 4.62 #H Est Glomerular Filtrat Rate mL/min Glucose Level 168 Calcium Level 7.6 L Phosphorus Level 5.9 #H Magnesium Level 2.3 Medications Current Medications Amiodarone HCl (Cordarone) 200 mg DAILY PO Last administered on 04/15/19 08:29; Admin Dose 200 MG; Start 04/02/19 at 09:00 Aspirin (Halfprin) 81 mg DAILY PO Last administered on 04/15/19 08:29; Admin Dose 81 MG; Start 04/02/19 at 09:00 Atorvastatin Calcium (Lipitor) 20 mg QHS PO Last administered on 04/15/19 20:5 3; Admin Dose 20 MG; Start 04/01/19 at 21:00 Docusate Sodium (Colace) 100 mg BID PO Last administered on 04/15/19 20:53; Admin Dose 100 MG; Start 04/01/19 at 21:00 Montelukast Sodium (Singulair) 10 mg QHS PO Last administered on 04/15/19 20:53; Admin Dose 10 MG; Start 04/01/19 at 21:00 Sevelamer Carbonate (Renvela) 1.6 gm BID WITH MEALS PO Last administered on 04/15/19 18:46; Admin Dose 1.6 GM; Start 04/01/19 at 21:00 Albuterol/ Ipratropium (Duoneb) 3 ml Q2H RESP THERAPY PRN NEB SHORTNESS OF BREATH Last administered on 04/09/19 21:01; Admin Dose 3 ML; Start 04/01/19 at 21:00 Zolpidem Tartrate (Ambien) 5 mg QHS PRN PO INSOMNIA Last administered on 04/15/19 21:58; Admin Dose 5 MG; Start 04/01/19 at 21:00 Norepinephrine 250 ml @ 1.875 mls/ hr TITRATE IV Last administered on 23:22; Admin Dose 18.753 MLS/HR; Start 04/02/19 at 02:30 IV Flush (NS 10 ml) 10 ml PRN PRN IV IV PROTOCOL; Start 04/03/19 at 17:00 Epoetin Jatinder-epbx (Retacrit (Esrd)) 10,000 unit AFTER EACH DIALYSIS SC Last administered on 04/10/19 15:55; Admin Dose 10,000 UNIT; Start 04/04/19 at 16:00 Miscellaneous Information 1 ea NOTE XX ; Start 04/05/19 at 11:30 Glucose (Glutose) 15 gm Q15M PRN PO DECREASED GLUCOSE; Start 04/05/19 at 11:30 Glucose (Glutose) 22.5 gm Q15M PRN PO DECREASED GLUCOSE; Start 04/05/19 at 11:30 Dextrose (D50w Syringe) 25 ml Q15M PRN IV DECREASED GLUCOSE Last administered on 04/11/19 11:46; Admin Dose 25 ML; Start 04/05/19 at 11:30 Dextrose (D50w Syringe) 50 ml Q15M PRN IV DECREASED GLUCOSE; Start 04/05/19 at 11:30 Glucagon (Glucagen) 1 mg Q15M PRN IM DECREASED GLUCOSE; Start 04/05/19 at 11:30 Glucose (Glutose) 15 gm Q15M PRN BUCCAL DECREASED GLUCOSE; Start 04/05/19 at 11:30 Diagnostic Test (Pha) (Accu-Chek) 1 ea 02 XX Last administered on 04/14/19at 01:31; Admin Dose 1 EA; Start 04/06/19 at 02:00 Insulin Aspart (Novolog Insulin Pen) NOVOLOG *MILD* ALGORITHM WITH MEALS BEDTIME SC Last administered on 04/10/19 20:26; Admin Dose 1 UNIT; Start 04/05/19 at 17:35 Insulin Glargine (Lantus) 20 units DAILY@2000 SC Last administered on 04/15/19 20:59; Admin Dose 20 UNITS; Start 04/06/19 at 20:00 Ondansetron HCl (Zofran Inj) 4 mg Q6H PRN IV NAUSEA AND/OR VOMITING Last administered on 04/15/19 15:45; Admin Dose 4 MG; Start 04/07/19 at 17:00 Metronidazole 100 ml @ 100 mls/hr Q8 IVPB Last administered on 04/16/19 05:54; Admin Dose 100 MLS/HR; Start 04/11/19 at 15:30 Midodrine (Proamatine) 10 mg TID@0900,1300,1700 PO Last administered on 04/15/19at 18:46; Admin Dose 10 MG; Start 04/12/19 at 09:00 Dextrose/Sodium Chloride 1,000 ml @ 50 mls/hr Q20H IV Last administered on 04/15/19at 16:28; Admin Dose 50 MLS/HR; Start 04/13/19 at 08:00 Assessment/Plan Hospital Course (Demo Recall) Assessment 1. Persistent septic shock requiring vasopressor support blood cultures positive for Bacteroides ongoing vasopressor requirement 2. History of end-stage renal failure on hemodialysis 3. History of cholangiocarcinoma. 4. History of arrhythmia with pacemaker 5. Diabetes mellitus 6. Dysphagia remains risk of aspiration. 7. Encephalopathy toxic metabolic, appears to be slowly improving 8. Hypoxemic respiratory failure with pleural effusion status post thoracentesis. Plan 1. Continue supplemental O2 as needed 2. Hemodialysis as tolerated. 3. Continue antibiotics per ID 4. Thoracentesis left lung. Pleural fluid studies now pending. 5. Titrate vasopressors to keep map greater than 65, no evidence of adrenal insufficiency with normal cortisol level noted. Still remains vasopressor dependent for several days. Consider midodrine. 6. Speech therapy recommendations aspiration precautions. Critical care time 40 minutes Appreciate palliative care recommendations. Consider hospice. Family had declined nasogastric and G tube. TRAE TRAVIS MD, [facility] Apr 16, 2019 10:24
--- NOTE | 2019-04-16 11:42 | CONS ---
Consult Date/Type/Reason Admit Date/Time Apr 01, 2019 at 17:43 Initial Consult Date 04/03/19 Type of Consultation: cv Requesting Provider: ADA RANGEL DO Date/Time of Note DATE: 04/16/19 TIME: 11:41 Subjective Subjective: Discussed with the staff. Telemetry was reviewed. Patient has remained in PACED rhythm mostly Patient remains in ICU and hypotensive and remains on levophed drip No report of any chest pain or pressure he denies PND orthopnea to me PT IS ON HD now Objective: General: no acute distress HEENT: NC/AT. pupils are equal. round. NECK: no stridor. CV: RRR. systolic murmur; no gallop or rubs. PULM: no wheezing or rhonchi. GI: SOFT, NT, ND, no rebound or guarding Extremity: + B/L LE edema. no clubbing. neuro: awake Psych: calm rectal: deferred EKG shows ventricular paced rhythm Chest x-ray done 03/24/2019 shows: 1. New left-sided PICC in proximal SVC. 2. Persistent small left-sided pleural effusion with left lung base atelectasis/infiltrate. 3. Persistent patchy opacity of the right lung base. 4. Persistent cardiomegaly with mild vascular congestion CT 1. Again noted is severe dilatation of left intrahepatic biliary ducts. No gross evidence of hepatic mass is seen, though sensitivity is markedly limited without IV contrast. Findings remain concerning for obstructive mass in the central left hepatic lobe, as described in the prior CT report. 2. Findings compatible with peritoneal carcinomatosis. Moderate ascites, grossly stable. 3. Stable mild cardiomegaly. Coronary arterial and aortoiliac atherosclerotic calcifications. 4. Mild to moderate bilateral pleural effusions, grossly stable. Bibasilar atelectasis. 5. Cholelithiasis, without evidence for cholecystitis. 6. Chronic bilateral renal cortical thinning and atrophy, unchanged. Objective Vitals Vital Signs Date Temp Pulse Resp B/P (MAP) Pulse Ox O2 O2 Flow FiO2 Time Delivery Rate 04/16/19 91 22 09:30 04/16/19 102/55 09:15 (71) 04/16/19 Nasal 09:00 Cannula 04/16/19 98 08:00 04/16/19 4.0 07:00 04/16/19 98.4 05:00 Intake and Output 04/15/19 04/15/19 04/16/19 1515:00 23:00 07:00 IntakeIntake Total 904.96 ml 815.93 ml 595.57 ml BalanceBalance 904.96 ml 815.93 ml 595.57 ml Results/Medications Result Diagram: 04/16/19 0430 04/16/19 0430 Results 24 hrs Laboratory Tests Test 04/15/19 17:30 04/15/19 20:46 04/16/19 04:30 04/16/19 10:41 Bedside Glucose 137 172 163 White Blood Count 26.4 #H Red Blood Count 2.93 L Hemoglobin 8.8 L Hematocrit 29.3 L Mean Corpuscular 100.0 Volume Mean Corpuscular 30.0 Hemoglobin Mean Corpuscular 30.0 L Hemoglobin Concent Red Cell 17.3 H Distribution Width Platelet Count 350 Mean Platelet Volume 10.7 H Immature 2.000 H Granulocytes % Neutrophils % 80.2 H Lymphocytes % 12.2 L Monocytes % 5.3 Eosinophils % 0.0 Basophils % 0.3 Nucleated Red Blood 0.0 Cells % Immature 0.530 H Granulocytes # Neutrophils # 21.2 H Lymphocytes # 3.2 H Monocytes # 1.4 H Eosinophils # 0.0 Basophils # 0.1 Nucleated Red Blood 0.0 Cells # Sodium Level 141 Potassium Level 5.3 H Chloride Level 108 Carbon Dioxide Level 22 Anion Gap 11 Blood Urea Nitrogen 32 H Creatinine 4.62 #H Est Glomerular Filtrat Rate mL/min Glucose Level 168 Calcium Level 7.6 L Phosphorus Level 5.9 #H Magnesium Level 2.3 Home Meds Reported Medications Docusate Sodium* (Docusate Sodium*) 100 Mg Capsule, 100 MG PO BID, #60 CAP 04/01/19 Metoprolol Succinate* (Toprol XL*) 25 Mg Tab.sr.24h, 25 MG PO DAILY, #30 TAB 04/01/19 Aspirin* (Aspirin* EC) 81 Mg Tablet.dr, 81 MG PO DAILY, TAB 04/01/19 Fenofibrate, Micronized (Fenofibrate) 134 Mg Capsule, 134 MG PO DAILY, CAP 04/01/19 Sevelamer Carbonate* (Renvela*) 800 Mg Tablet, 1.6 GM PO BID, TAB 04/01/19 Amiodarone Hcl* (Amiodarone Hcl*) 200 Mg Tablet, 200 MG PO DAILY, #30 TAB TAKE Q TUES,THURS,SAT WITH DIALYSIS 04/01/19 Montelukast Sodium* (Montelukast Sodium*) 10 Mg Tablet, 10 MG PO QHS, #30 TAB 04/01/19 [Nephro-Elieser] No Conflict Check, 1 TAB PO DAILY 04/01/19 Sacubitril/Valsartan (Entresto 24 mg-26 mg Tablet) 1 Each Tablet, 1 EACH PO BID, TAB 04/01/19 Midodrine* (Midodrine*) 5 Mg Tablet, 5 MG PO DAILY, TAB 04/01/19 Furosemide* (Furosemide*) 40 Mg Tablet, 40 MG PO DAILY, TAB 04/01/19 Atorvastatin Calcium* (Atorvastatin Calcium*) 20 Mg Tablet, 20 MG PO QHS, #30 TAB 04/01/19 Medications Current Medications Amiodarone HCl (Cordarone) 200 mg DAILY PO Last administered on 04/15/19 08:29; Admin Dose 200 MG; Start 04/02/19 at 09:00 Aspirin (Halfprin) 81 mg DAILY PO Last administered on 04/15/19 08:29; Admin Dose 81 MG; Start 04/02/19 at 09:00 Atorvastatin Calcium (Lipitor) 20 mg QHS PO Last administered on 04/15/19 20:53; Admin Dose 20 MG; Start 04/01/19 at 21:00 Docusate Sodium (Colace) 100 mg BID PO Last administered on 04/15/19 20:53; Admin Dose 100 MG; Start 04/01/19 at 21:00 Montelukast Sodium (Singulair) 10 mg QHS PO Last administered on 04/15/19 20:53; Admin Dose 10 MG; Start 04/01/19 at 21:00 Sevelamer Carbonate (Renvela) 1.6 gm BID WITH MEALS PO Last administered on 04/15/19 18:46; Admin Dose 1.6 GM; Start 04/01/19 at 21:00 Albuterol/ Ipratropium (Duoneb) 3 ml Q2H RESP THERAPY PRN NEB SHORTNESS OF BREATH Last administered on 04/09/19 21:01; Admin Dose 3 ML; Start 04/01/19 at 21:00 Zolpidem Tartrate (Ambien) 5 mg QHS PRN PO INSOMNIA Last administered on 04/15/19 21:58; Admin Dose 5 MG; Start 04/01/19 at 21:00 Norepinephrine 250 ml @ 1.875 mls/ hr TITRATE IV Last administered on 04/15/19at 23:22; Admin Dose 18.753 MLS/HR; Start 04/02/19 at 02:30 IV Flush (NS 10 ml) 10 ml PRN PRN IV IV PROTOCOL; Start 04/03/19 at 17:00 Epoetin Jatinder-epbx (Retacrit (Esrd)) 10,000 unit AFTER EACH DIALYSIS SC Last administered on 04/10/19 15:55; Admin Dose 10,000 UNIT; Start 04/04/19 at 16:00 Miscellaneous Information 1 ea NOTE XX ; Start 04/05/19 at 11:30 Glucose (Glutose) 15 gm Q15M PRN PO DECREASED GLUCOSE; Start 04/05/19 at 11:30 Glucose (Glutose) 22.5 gm Q15M PRN PO DECREASED GLUCOSE; Start 04/05/19 at 11:30 Dextrose (D50w Syringe) 25 ml Q15M PRN IV DECREASED GLUCOSE Last administered on 04/11/19 11:46; Admin Dose 25 ML; Start 04/05/19 at 11:30 Dextrose (D50w Syringe) 50 ml Q15M PRN IV DECREASED GLUCOSE; Start 04/05/19 at 11:30 Glucagon (Glucagen) 1 mg Q15M PRN IM DECREASED GLUCOSE; Start 04/05/19 at 11:30 Glucose (Glutose) 15 gm Q15M PRN BUCCAL DECREASED GLUCOSE; Start 04/05/19 at 11:30 Diagnostic Test (Pha) (Accu-Chek) 1 ea 02 XX Last administered on 04/14/19at 01:31; Admin Dose 1 EA; Start 04/06/19 at 02:00 Insulin Aspart (Novolog Insulin Pen) NOVOLOG *MILD* ALGORITHM WITH MEALS BEDTIME SC Last administered on 04/16/19at 10:45; Admin Dose 1 UNIT; Start 04/05/19 at 17:35 Insulin Glargine (Lantus) 20 units DAILY@2000 SC Last administered on 04/15/19at 20:59; Admin Dose 20 UNITS; Start 04/06/19 at 20:00 Ondansetron HCl (Zofran Inj) 4 mg Q6H PRN IV NAUSEA AND/OR VOMITING Last administered on 04/15/19 15:45; Admin Dose 4 MG; Start 04/07/19 at 17:00 Metronidazole 100 ml @ 100 mls/hr Q8 IVPB Last administered on 04/16/19 05:54; Admin Dose 100 MLS/HR; Start 04/11/19 at 15:30 Midodrine (Proamatine) 10 mg TID@0900,1300,1700 PO Last administered on 04/15/19 18:46; Admin Dose 10 MG; Start 04/12/19 at 09:00 Dextrose/Sodium Chloride 1,000 ml @ 50 mls/hr Q20H IV Last administered on 16:28; Admin Dose 50 MLS/HR; Start 04/13/19 at 08:00 Assessment/Plan Hospital Course (Demo Recall) Mildly abnormal troponin secondary to sepsis renal failure etc. Sepsis/pneumonia GNR bacteremia/ septic shock Pneumonia ? cholangiocarcinoma Renal failure dialysis dependent History of arrhythmia probably sick sinus syndrome versus heart block status post MRI compatible [employer] permanent pacemaker Encephalopathy Paroxysmal atrial fibrillation Recommendations: aspirin as long as ok with GI and no active bleeding is noted Antibiotic management as per internal medicine and consultants Continue to be hemodialysis as tolerated Unable to tolerate beta-damian due to his low blood pressure levophed as needed f/u GI consultation rec Pacemaker card reviewed. pacemaker is an MRI compatible and MRI can be done . need to call [email or web address] rep to change the pacemaker setting right before and after the MRCP. PLEASE CONTACT [email or web address] rep (Rubio at [phone]) to arrange for setting change fluid management as per renal Thank you for this referral. We will continue to follow along with you JOSE D SOLOMON MD [facility] JOSE D SOLOMON MD Apr 16, 2019 11:42
[2019-04-16] MEDS: DEXTROSE 5%-0.9% NACL 1,000 ML IV SCH (12:20)
--- NOTE | 2019-04-16 14:27 | CONS ---
Assessment/Plan Assessment/Plan Hospital Course (Demo Recall) 1300 patient is in hemodialysis maxed on Levophed lethargic in no distress graft WBC 26.4 platelets 350 neutrophils 80.2 Indwelling's: PICC line and upper extremity fistula Antimicrobials: Flagyl Microbiology: Blood culture on admission grew Bacteroides fragilis, repeat cx neg Physical examination: This is an obese well-developed chronically ill elderly [place] man who is in no distress. Head atraumatic normocephalic neck is supple chest rise symmetrical breath sounds diminished bases. Heart: S1-S2. Tachycardic abdomen soft obese bowel sounds hypoactive extremities without cyanosis, trace edema Assessment: 1. Severe sepsis with shock 2. Bacteremia ? source==>likely intraabdominal 3. End-stage renal disease, hemodialysis dependent 4. Recently diagnosed hepatocellular carcinoma, poss obstructing mass and peritoneal carcinomatosis 5. Coronary artery disease status post permanent pacemaker 6. Diabetes 7. Atrial fibrillation 8. DNR Plan: Patient remains on Levophed drip with increased requirements, white blood cell count continues to increase, we will start him on broad-spectrum coverage with vancomycin and meropenem Consultation Date/Type/Reason Admit Date/Time Apr 01, 2019 at 17:43 Initial Consult Date 04/03/19 Type of Consult id Requesting Provider: ADA RANGEL DO Date/Time of Note DATE: 04/16/19 TIME: 14:25 Exam/Review of Systems Exam Vitals Vital Signs Date Temp Pulse Resp B/P (MAP) Pulse Ox O2 O2 Flow FiO2 Time Delivery Rate 04/16/19 97 14:00 04/16/19 23 100 Nasal 13:00 Cannula 04/16/19 98.2 12:30 04/16/19 2.0 11:30 Intake and Output 04/15/19 04/15/19 04/16/19 1515:00 23:00 07:00 IntakeIntake Total 904.96 ml 815.93 ml 595.57 ml BalanceBalance 904.96 ml 815.93 ml 595.57 ml Results Result Diagram: 04/16/19 0430 04/16/19 0430 Results 24hrs Laboratory Tests Test 04/15/19 17:30 04/15/19 20:46 04/16/19 04:30 04/16/19 10:41 Bedside Glucose 137 172 163 White Blood Count 26.4 #H Red Blood Count 2.93 L Hemoglobin 8.8 L Hematocrit 29.3 L Mean Corpuscular 100.0 Volume Mean Corpuscular 30.0 Hemoglobin Mean Corpuscular 30.0 L Hemoglobin Concent Red Cell 17.3 H Distribution Width Platelet Count 350 Mean Platelet Volume 10.7 H Immature 2.000 H Granulocytes % Neutrophils % 80.2 H Lymphocytes % 12.2 L Monocytes % 5.3 Eosinophils % 0.0 Basophils % 0.3 Nucleated Red Blood 0.0 Cells % Immature 0.530 H Granulocytes # Neutrophils # 21.2 H Lymphocytes # 3.2 H Monocytes # 1.4 H Eosinophils # 0.0 Basophils # 0.1 Nucleated Red Blood 0.0 Cells # Sodium Level 141 Potassium Level 5.3 H Chloride Level 108 Carbon Dioxide Level 22 Anion Gap 11 Blood Urea Nitrogen 32 H Creatinine 4.62 #H Est Glomerular Filtrat Rate mL/min Glucose Level 168 Calcium Level 7.6 L Phosphorus Level 5.9 #H Magnesium Level 2.3 Medications Medication Current Medications Amiodarone HCl (Cordarone) 200 mg DAILY PO Last administered on 04/15/19 08:29; Admin Dose 200 MG; Start 04/02/19 at 09:00 Aspirin (Halfprin) 81 mg DAILY PO Last administered on 04/15/19 08:29; Admin Dose 81 MG; Start 04/02/19 at 09:00 Atorvastatin Calcium (Lipitor) 20 mg QHS PO Last administered on 04/15/19 20:53; Admin Dose 20 MG; Start 04/01/19 at 21:00 Docusate Sodium (Colace) 100 mg BID PO Last administered on 04/15/19 20:53; Admin Dose 100 MG; Start 04/01/19 at 21:00 Montelukast Sodium (Singulair) 10 mg QHS PO Last administered on 04/15/19 20:53; Admin Dose 10 MG; Start 04/01/19 at 21:00 Sevelamer Carbonate (Renvela) 1.6 gm BID WITH MEALS PO Last administered on 04/15/19 18:46; Admin Dose 1.6 GM; Start 04/01/19 at 21:00 Albuterol/ Ipratropium (Duoneb) 3 ml Q2H RESP THERAPY PRN NEB SHORTNESS OF BREATH Last administered on 6/23/19at 21:01; Admin Dose 3 ML; Start 04/01/19 at 21:00 Zolpidem Tartrate (Ambien) 5 mg QHS PRN PO INSOMNIA Last administered on 04/15/19at 21:58; Admin Dose 5 MG; Start 04/01/19 at 21:00 Norepinephrine 250 ml @ 1.875 mls/ hr TITRATE IV Last administered on 04/15/19at 23:22; Admin Dose 18.753 MLS/HR; Start 04/02/19 at 02:30 IV Flush (NS 10 ml) 10 ml PRN PRN IV IV PROTOCOL; Start 04/03/19 at 17:00 Epoetin Jatinder-epbx (Retacrit (Esrd)) 10,000 unit AFTER EACH DIALYSIS SC Last administered on 04/10/19at 15:55; Admin Dose 10,000 UNIT; Start 04/04/19 at 16:00 Miscellaneous Information 1 ea NOTE XX ; Start 04/05/19 at 11:30 Glucose (Glutose) 15 gm Q15M PRN PO DECREASED GLUCOSE; Start 04/05/19 at 11:30 Glucose (Glutose) 22.5 gm Q15M PRN PO DECREASED GLUCOSE; Start 04/05/19 at 11:30 Dextrose (D50w Syringe) 25 ml Q15M PRN IV DECREASED GLUCOSE Last administered on 04/11/19at 11:46; Admin Dose 25 ML; Start 04/05/19 at 11:30 Dextrose (D50w Syringe) 50 ml Q15M PRN IV DECREASED GLUCOSE; Start 04/05/19 at 11:30 Glucagon (Glucagen) 1 mg Q15M PRN IM DECREASED GLUCOSE; Start 04/05/19 at 11:30 Glucose (Glutose) 15 gm Q15M PRN BUCCAL DECREASED GLUCOSE; Start 04/05/19 at 11:30 Diagnostic Test (Pha) (Accu-Chek) 1 ea 02 XX Last administered on 04/14/19at 01:31; Admin Dose 1 EA; Start 04/06/19 at 02:00 Insulin Aspart (Novolog Insulin Pen) NOVOLOG *MILD* ALGORITHM WITH MEALS BEDTIME SC Last administered on 04/16/19at 10:45; Admin Dose 1 UNIT; Start 04/05/19 at 17:35 Insulin Glargine (Lantus) 20 units DAILY@2000 SC Last administered on 04/15/19 20:59; Admin Dose 20 UNITS; Start 04/06/19 at 20:00 Ondansetron HCl (Zofran Inj) 4 mg Q6H PRN IV NAUSEA AND/OR VOMITING Last administered on 04/15/19 15:45; Admin Dose 4 MG; Start 04/07/19 at 17:00 Metronidazole 100 ml @ 100 mls/hr Q8 IVPB Last administered on 04/16/19 05:54; Admin Dose 100 MLS/HR; Start 04/11/19 at 15:30 Midodrine (Proamatine) 10 mg TID@0900,1300,1700 PO Last administered on 04/15/19 18:46; Admin Dose 10 MG; Start 04/12/19 at 09:00 Dextrose/Sodium Chloride 1,000 ml @ 50 mls/hr Q20H IV Last administered on 04/15/19 16:28; Admin Dose 50 MLS/HR; Start 04/13/19 at 08:00 JOAO RAHMAN NP Apr 16, 2019 14:27
[2019-04-16] MEDS ORDERED: VANCOMYCIN IV PER PHARMACY XX SCH (14:30)
--- NOTE | 2019-04-16 16:47 | CONS ---
Assessment/Plan Assessment/Plan Assessment/Plan (Daily) Assessment/Plan Assessment/Plan (Daily) 1. Severe sepsis. -Bacteremia with possible intra-abdominal etiology 2. Ascites. 3. Pneumonia. 4. Hepatocellular cancer with carcinomatosis. -CA 199 1000 and alpha-fetoprotein was within normal limit. This cancer cell marker are more in favor of cholangiocarcinoma rather than hepatocellular cancer. 5. Diabetes mellitus. 6. Atrial fibrillation. 7. Congestive heart failure. 8. Dilated left-sided biliary system. The most probably has a cholangiocarcinoma needs stenting 9. Anemia. -positive fob, low iron, tibc, %sat, high ferritin Plan -Monitor HH and for acute GI bleeding -Pt needs ERCP but deemed too unstable per anesthesiology. No cardiac clearance given yet. Still requiring pressor support Patient is still on pressor support and has a volume overload. Needs dialysis and fluid to be removed as tolerated by patient with albumin infusion Aspiration precaution patient be started on TPN Consultation Date/Type/Reason Admit Date/Time Apr 01, 2019 at 17:43 Initial Consult Date 04/03/19 Requesting Provider: ADA RANGEL DO Date/Time of Note DATE: 04/16/19 TIME: 16:46 24 HR Interval Summary Free Text/Dictation Patient is more lethargic He is on a high dose of pressor support medication Exam/Review of Systems Exam Vitals Vital Signs Date Temp Pulse Resp B/P (MAP) Pulse Ox O2 O2 Flow FiO2 Time Delivery Rate 04/16/19 92 29 99/55 (70) 100 Nasal 16:30 Cannula 04/16/19 2.0 14:44 04/16/19 98.2 12:30 Intake and Output 04/15/19 04/15/19 04/16/19 1515:00 23:00 07:00 IntakeIntake Total 904.96 ml 815.93 ml 595.57 ml BalanceBalance 904.96 ml 815.93 ml 595.57 ml Constitutional: alert, oriented, well developed Psych: no complaints, nl mood/affect Head: normocephalic, atraumatic Eyes: nl conjunctiva, EOMI, nl lids, nl sclera, PERRL ENMT: nl external ears & nose, nl lips & teeth, nl nasal mucosa & septum Neck: supple, non-tender Respiratory: clear to auscultation, normal air movement Cardiovascular: regular rate and rhythm, nl pulses Gastrointestinal: soft, nl liver, spleen, non-tender Musculoskeletal: nl extremities to inspection, nl gait and stance Extremities: normal pulses Neurological: [employer] II-XII intact, nl mental status, nl speech, nl strength Skin: nl turgor; No rash or lesions Lymph: nl lymph nodes Results Result Diagram: 04/16/19 0430 04/16/19 0430 Results 24hrs Laboratory Tests Test 04/15/19 17:30 04/15/19 20:46 04/16/19 04:30 04/16/19 10:41 Bedside Glucose 137 172 163 White Blood Count 26.4 #H Red Blood Count 2.93 L Hemoglobin 8.8 L Hematocrit 29.3 L Mean Corpuscular 100.0 Volume Mean Corpuscular 30.0 Hemoglobin Mean Corpuscular 30.0 L Hemoglobin Concent Red Cell 17.3 H Distribution Width Platelet Count 350 Mean Platelet Volume 10.7 H Immature 2.000 H Granulocytes % Neutrophils % 80.2 H Lymphocytes % 12.2 L Monocytes % 5.3 Eosinophils % 0.0 Basophils % 0.3 Nucleated Red Blood 0.0 Cells % Immature 0.530 H Granulocytes # Neutrophils # 21.2 H Lymphocytes # 3.2 H Monocytes # 1.4 H Eosinophils # 0.0 Basophils # 0.1 Nucleated Red Blood 0.0 Cells # Sodium Level 141 Potassium Level 5.3 H Chloride Level 108 Carbon Dioxide Level 22 Anion Gap 11 Blood Urea Nitrogen 32 H Creatinine 4.62 #H Est Glomerular Filtrat Rate mL/min Glucose Level 168 Calcium Level 7.6 L Phosphorus Level 5.9 #H Magnesium Level 2.3 Medications Medication Current Medications Amiodarone HCl (Cordarone) 200 mg DAILY PO Last administered on 04/15/19at 08:29; Admin Dose 200 MG; Start 04/02/19 at 09:00 Aspirin (Halfprin) 81 mg DAILY PO Last administered on 04/15/19 08:29; Admin Dose 81 MG; Start 04/02/19 at 09:00 Atorvastatin Calcium (Lipitor) 20 mg QHS PO Last administered on 04/15/19at 20:53; Admin Dose 20 MG; Start 04/01/19 at 21:00 Docusate Sodium (Colace) 100 mg BID PO Last administered on 04/15/19at 20:53; Admin Dose 100 MG; Start 04/01/19 at 21:00 Montelukast Sodium (Singulair) 10 mg QHS PO Last administered on 04/15/19 20:53; Admin Dose 10 MG; Start 04/01/19 at 21:00 Sevelamer Carbonate (Renvela) 1.6 gm BID WITH MEALS PO Last administered on 04/15/19 18:46; Admin Dose 1.6 GM; Start 04/01/19 at 21:00 Albuterol/ Ipratropium (Duoneb) 3 ml Q2H RESP THERAPY PRN NEB SHORTNESS OF BREATH Last administered on 04/09/19 21:01; Admin Dose 3 ML; Start 04/01/19 at 21:00 Zolpidem Tartrate (Ambien) 5 mg QHS PRN PO INSOMNIA Last administered on 04/15/19 21:58; Admin Dose 5 MG; Start 04/01/19 at 21:00 Norepinephrine 250 ml @ 1.875 mls/ hr TITRATE IV Last administered on 23:22; Admin Dose 18.753 MLS/HR; Start 04/02/19 at 02:30 IV Flush (NS 10 ml) 10 ml PRN PRN IV IV PROTOCOL; Start 04/03/19 at 17:00 Epoetin Jatinder-epbx (Retacrit (Esrd)) 10,000 unit AFTER EACH DIALYSIS SC Last administered on 04/10/19 15:55; Admin Dose 10,000 UNIT; Start 04/04/19 at 16:00 Miscellaneous Information 1 ea NOTE XX ; Start 04/05/19 at 11:30 Glucose (Glutose) 15 gm Q15M PRN PO DECREASED GLUCOSE; Start 04/05/19 at 11:30 Glucose (Glutose) 22.5 gm Q15M PRN PO DECREASED GLUCOSE; Start 04/05/19 at 11:30 Dextrose (D50w Syringe) 25 ml Q15M PRN IV DECREASED GLUCOSE Last administered on 04/11/19 11:46; Admin Dose 25 ML; Start 04/05/19 at 11:30 Dextrose (D50w Syringe) 50 ml Q15M PRN IV DECREASED GLUCOSE; Start 04/05/19 at 11:30 Glucagon (Glucagen) 1 mg Q15M PRN IM DECREASED GLUCOSE; Start 04/05/19 at 11:30 Glucose (Glutose) 15 gm Q15M PRN BUCCAL DECREASED GLUCOSE; Start 04/05/19 at 11:30 Diagnostic Test (Pha) (Accu-Chek) 1 ea 02 XX Last administered on 04/14/19 01:31; Admin Dose 1 EA; Start 04/06/19 at 02:00 Insulin Aspart (Novolog Insulin Pen) NOVOLOG *MILD* ALGORITHM WITH MEALS BEDTIME SC Last administered on 04/16/19 10:45; Admin Dose 1 UNIT; Start 04/05/19 at 17:35 Insulin Glargine (Lantus) 20 units DAILY@2000 SC Last administered on 04/15/19 20:59; Admin Dose 20 UNITS; Start 04/06/19 at 20:00 Ondansetron HCl (Zofran Inj) 4 mg Q6H PRN IV NAUSEA AND/OR VOMITING Last administered on 04/15/19 15:45; Admin Dose 4 MG; Start 04/07/19 at 17:00 Midodrine (Proamatine) 10 mg TID@0900,1300,1700 PO Last administered on 04/15/19 18:46; Admin Dose 10 MG; Start 04/12/19 at 09:00 Dextrose/Sodium Chloride 1,000 ml @ 50 mls/hr Q20H IV Last administered on 04/15/19 16:28; Admin Dose 50 MLS/HR; Start 04/13/19 at 08:00 Vancomycin HCl (Vanco Iv Per Pharmacy) VANCOMYCIN PER PHARMACY PER PROTOCOL XX ; Start 04/16/19 at 14:30 Meropenem/Sodium Chloride 50 ml @ 100 mls/hr Q12 IVPB ; Start 04/16/19 at 15:30 OLIVIA CANTOR MD Apr 16, 2019 16:47
[2019-04-16] MEDS ORDERED: ALBUMIN HUMAN 25% 50 ML IV ONE (17:00)
[2019-04-16] MEDS: MEROPENEM 500MG/50 ML (PMX) 50 ML IVPB SCH (17:37)
[2019-04-16] MEDS: NORepinephrine 8MG/250 ML (PMX 250 ML IV SCH ×2 (17:45→22:25)
[2019-04-16] MEDS ORDERED: VANCOMYCIN HCL 1.75 GM in SOD CHLORIDE 0.9% 500 ML IVPB SCH (18:00)
[2019-04-16] MEDS ORDERED: VASOPRESSIN 60 UNIT in DEXTROSE 5% 57 ML IV SCH ×2 (19:30→20:00)
[2019-04-16] MEDS: INSULIN GLARGINE [LANTus] (100 UNITS/ML) SYG SC SCH (20:18)
[2019-04-16] MEDS: ATORVASTATIN 20 MG TAB PO SCH (20:21)
[2019-04-16] MEDS: MONTELUKAST 10 MG TAB PO SCH (20:21)
[2019-04-16] MEDS ORDERED: ALTEPLASE (CATHFLO) 2 MG INJ CATHETER PRN ×3 (21:30→22:30)
[2019-04-17] VITALS (93 sets, daily range): BP systolic 53–123; BP diastolic 23–83; PULSE 77–101; RESP 12–38
[2019-04-17] MEDS: MEROPENEM 500MG/50 ML (PMX) 50 ML IVPB SCH ×2 (01:52→08:42)
[2019-04-17] MEDS: ACCU-CHEK XX SCH (02:00)
[2019-04-17] MEDS: NORepinephrine 8MG/250 ML (PMX 250 ML IV SCH (02:35)
--- NOTE | 2019-04-17 07:15 | CONS ---
Assessment/Plan Assessment/Plan Hospital Course (Demo Recall) 83 yo male WBC has gone up to 26.4. [employer] 3.53. Pt is on HD. LFTs are wnl. Pt has abd pain to palpitation. Denies Nausea. Pt asks for water. Orders to start TPN today. 1. Severe sepsis. -Bacteremia with possible intra-abdominal etiology 2. Ascites. -04/14 paracentesis 3. Pneumonia. 4. Cholangiocarcinoma with carcinomatosis. -H/O hepatocellular cancer -CA 199 1000 and alpha-fetoprotein was within normal limit. This cancer cell marker are more in favor of cholangiocarcinoma rather than hepatocellular cancer. 5. Diabetes mellitus. 6. Atrial fibrillation. -paced 7. Congestive heart failure. 8. Dilated left-sided biliary system. 9. Anemia. -positive fob, low iron, tibc, %sat, high ferritin -when stable can consider EGD/colon. 10. ESRD -on HD Plan -Waiting on labs and dietary consult to start TPN today -Pt needs ERCP but deemed too unstable per anesthesiology. No cardiac clearance given yet. Still requiring pressor support Pt examined and plan of care d/w Dr Schuster Consultation Date/Type/Reason Admit Date/Time Apr 01, 2019 at 17:43 Initial Consult Date 04/03/19 Requesting Provider: ADA RANGEL DO Date/Time of Note DATE: 04/17/19 TIME: 07:08 Exam/Review of Systems Exam Vitals Vital Signs Date Temp Pulse Resp B/P (MAP) Pulse Ox O2 O2 Flow FiO2 Time Delivery Rate 04/17/19 92 21 106/65 87 06:30 (79) 04/17/19 Nasal 06:00 Cannula 04/17/19 98.1 04:00 04/17/19 4.0 00:59 Intake and Output 04/16/19 04/16/19 04/17/19 1515:00 23:00 07:00 IntakeIntake Total 678.125 ml 990.33 ml 818.00 ml OutputOutput Total 1500 ml 0 ml BalanceBalance -821.875 ml 990.33 ml 818.00 ml Results Result Diagram: 04/16/19 0430 04/17/19 0435 Results 24hrs Laboratory Tests Test 04/16/19 10:41 04/16/19 18:14 04/16/19 20:14 04/16/19 21:21 Bedside Glucose 163 112 133 Sodium Level 138 Potassium Level 4.3 Chloride Level 107 Carbon Dioxide Level 23 Anion Gap 8 Blood Urea Nitrogen 24 H Creatinine 3.43 #H Est Glomerular Filtrat Rate mL/min Glucose Level 131 Calcium Level 7.6 L Phosphorus Level 4.2 Magnesium Level 2.1 Total Bilirubin 0.4 Direct Bilirubin 0.00 Indirect Bilirubin 0.4 Aspartate Amino 44 Transf (AST/SGOT) Alanine 28 Aminotransferase (AL T/SGPT) Alkaline Phosphatase 107 Total Protein 5.2 L Albumin 2.1 L Globulin 3.10 Albumin/Globulin 0.67 Ratio Prealbumin 3.8 L Triglycerides Level 141 Test 04/17/19 04:35 Sodium Level 142 Potassium Level 4.2 Chloride Level 108 Carbon Dioxide Level 23 Anion Gap 11 Blood Urea Nitrogen 24 H Creatinine 3.53 H Est Glomerular Filtrat Rate mL/min Glucose Level 132 Calcium Level 8.0 L Phosphorus Level 4.5 Magnesium Level 2.1 Medications Medication Current Medications Amiodarone HCl (Cordarone) 200 mg DAILY PO Last administered on 04/15/19 08:29; Admin Dose 200 MG; Start 04/02/19 at 09:00 Aspirin (Halfprin) 81 mg DAILY PO Last administered on 04/15/19 08:29; Admin Dose 81 MG; Start 04/02/19 at 09:00 Atorvastatin Calcium (Lipitor) 20 mg QHS PO Last administered on 04/15/19 20:53; Admin Dose 20 MG; Start 04/01/19 at 21:00 Docusate Sodium (Colace) 100 mg BID PO Last administered on 04/15/19 20:53; Admin Dose 100 MG; Start 04/01/19 at 21:00 Montelukast Sodium (Singulair) 10 mg QHS PO Last administered on 04/15/19 20:53; Admin Dose 10 MG; Start 04/01/19 at 21:00 Sevelamer Carbonate (Renvela) 1.6 gm BID WITH MEALS PO Last administered on 04/15/19 18:46; Admin Dose 1.6 GM; Start 04/01/19 at 21:00 Albuterol/ Ipratropium (Duoneb) 3 ml Q2H RESP THERAPY PRN NEB SHORTNESS OF BREATH Last administered on 04/09/19 21:01; Admin Dose 3 ML; Start 04/01/19 at 21:00 Zolpidem Tartrate (Ambien) 5 mg QHS PRN PO INSOMNIA Last administered on 04/15/19at 21:58; Admin Dose 5 MG; Start 04/01/19 at 21:00 Norepinephrine 250 ml @ 1.875 mls/ hr TITRATE IV Last administered on 04/17/19at 02:35; Admin Dose 56.25 MLS/HR; Start 04/02/19 at 02:30 IV Flush (NS 10 ml) 10 ml PRN PRN IV IV PROTOCOL; Start 04/03/19 at 17:00 Epoetin Jatinder-epbx (Retacrit (Esrd)) 10,000 unit AFTER EACH DIALYSIS SC Last administered on 04/10/19at 15:55; Admin Dose 10,000 UNIT; Start 04/04/19 at 16:00 Miscellaneous Information 1 ea NOTE XX ; Start 04/05/19 at 11:30 Glucose (Glutose) 15 gm Q15M PRN PO DECREASED GLUCOSE; Start 04/05/19 at 11:30 Glucose (Glutose) 22.5 gm Q15M PRN PO DECREASED GLUCOSE; Start 04/05/19 at 11:30 Dextrose (D50w Syringe) 25 ml Q15M PRN IV DECREASED GLUCOSE Last administered on 04/11/19 11:46; Admin Dose 25 ML; Start 04/05/19 at 11:30 Dextrose (D50w Syringe) 50 ml Q15M PRN IV DECREASED GLUCOSE; Start 04/05/19 at 11:30 Glucagon (Glucagen) 1 mg Q15M PRN IM DECREASED GLUCOSE; Start 04/05/19 at 11:30 Glucose (Glutose) 15 gm Q15M PRN BUCCAL DECREASED GLUCOSE; Start 04/05/19 at 11:30 Diagnostic Test (Pha) (Accu-Chek) 1 ea 02 XX Last administered on 04/14/19at 01:31; Admin Dose 1 EA; Start 04/06/19 at 02:00 Insulin Aspart (Novolog Insulin Pen) NOVOLOG *MILD* ALGORITHM WITH MEALS BEDTIME SC Last administered on 04/16/19at 10:45; Admin Dose 1 UNIT; Start 04/05/19 at 17:35 Insulin Glargine (Lantus) 20 units DAILY@2000 SC Last administered on 6/30/19at 20:18; Admin Dose 20 UNITS; Start 04/06/19 at 20:00 Ondansetron HCl (Zofran Inj) 4 mg Q6H PRN IV NAUSEA AND/OR VOMITING Last administered on 04/15/19 15:45; Admin Dose 4 MG; Start 04/07/19 at 17:00 Midodrine (Proamatine) 10 mg TID@0900,1300,1700 PO Last administered on 04/15/19 18:46; Admin Dose 10 MG; Start 04/12/19 at 09:00 Dextrose/Sodium Chloride 1,000 ml @ 50 mls/hr Q20H IV Last administered on 04/16/19 12:20; Admin Dose 50 MLS/HR; Start 04/13/19 at 08:00 Vancomycin HCl (Vanco Iv Per Pharmacy) VANCOMYCIN PER PHARMACY PER PROTOCOL XX ; Start 04/16/19 at 14:30 Meropenem/Sodium Chloride 50 ml @ 100 mls/hr Q12 IVPB Last administered on 04/17/19 01:52; Admin Dose 100 MLS/HR; Start 04/16/19 at 15:30 Norepinephrine 16 mg/Dextrose 250 ml @ 0.94 mls/hr TITRATE IV Last administered on 04/17/19 06:56; Admin Dose 0.94 MLS/HR; Start 04/16/19 at 18:30 Vasopressin 60 unit/Dextrose 60 ml @ 1.2 mls/hr PRN IV ; Start 04/16/19 at 20:00 Diagnostic Test (Pha) (Accu-Chek) 1 ea Q4 XX ; Start 04/16/19 at 21:00; Status UNV Total Parenteral Nutrition 1,000 ml @ 0 mls/hr Q0M IV ; Start 04/16/19 at 20:41; Status UNV Fat Emulsion Intravenous 250 ml @ 10.4 mls/hr DAILY IV ; Start 04/17/19 at 09:00; Status UNV Alteplase, Recombinant (Cathflo (Activase)) 2 mg MAY REPEAT X1 PRN CATHETER IF CATHETER REMAINS OCCULUDED Last administered on 04/17/19 04:06; Admin Dose 2 MG; Start 04/16/19 at 22:30 ARIANA GUERRA Apr 17, 2019 07:15
[2019-04-17] MEDS: ASPIRIN (EC) 81 MG TAB PO SCH (08:07)
--- NOTE | 2019-04-17 08:28 | PN ---
DATE: 04/17/2019 SUBJECTIVE: The patient remains critically ill on pressor support, maxed out on Levophed. The patie nt remains altered. The patient had hemodialysis yesterday. The patient also noted to have cold low er extremities. No other events noted. OBJECTIVE: VITAL SIGNS: Blood pressure is 106/65, respirations 21, pulse 90, temperature 98.6. HEENT: Head is normocephalic. NECK: Supple. HEART: Regular rate. LUNGS: Show diminished breath sounds at the base. ABDOMEN: Soft, nontender to palpation without rebound or guarding. EXTREMITIES: Negative for clubbing, cyanosis. Positive edema. The patient also noted to have extre mities cool to touch with poor capillary refill. NEUROLOGIC: No change in exam. MUSCULOSKELETAL: No joint effusion. MEDICATIONS: The patient's medications have been reviewed. LABORATORY DATA: Reviewed. IMAGING STUDIES: Reviewed. ASSESSMENT AND PLAN: 1. Septic shock, etiology is secondary to gram-negative bacteremia. Underlying source is presumed t o be intraabdominal. Continue pressor support, IV fluids, antibiotic therapy. Follow up Infectious Disease for antibiotic management. 2. 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 The patient wa s seen by GI and Oncology. Clinically unstable for ERCP. Continue to monitor. 3. Anemia. Monitor hemoglobin and hematocrit levels. Continue Epogen. 4. Mineral bone disorder. Monitor calcium and phosphorus levels. 5. End-stage renal disease. The patient had hemodialysis yesterday. Plan is for dialysis again [facility]. 6. Volume overload, etiology is multifactorial. We will continue ultrafiltration with dialysis if h emodynamically stable. 7. Diabetes. Continue current insulin regimen. 8. Nutrition. The patient is currently n.p.o. pending TPN recommendations per dietary. 9. Arrhythmia with history of pacemaker. 10. Acute encephalopathy. Etiology is toxic metabolic. 11. Lower extremity wounds. 12. Pleural effusion, status post thoracentesis. Please note, I spent over 30 minutes of critical care time with this patient. Dictated By: ADA RANGEL DO NR/NTS Conf#: [id number] DID#: [id number] CC: TRAE TRAVIS MD; DYLAN GREENE MD;*EndCC*
[2019-04-17] MEDS: INSULIN ASPART [NOVOLOG] 3 ML PEN SC SCH ×4 (08:39→20:16)
[2019-04-17] MEDS: MIDODRINE 5 MG TAB PO SCH ×3 (08:41→17:37)
[2019-04-17] MEDS: AMIODARONE 200 MG TAB PO SCH (08:42)
[2019-04-17] MEDS: DOCUSATE SODIUM 100 MG CAP PO SCH ×2 (08:42→20:17)
[2019-04-17] MEDS: SEVELAMER CARBONATE 0.8 GM PKT PO SCH ×2 (08:43→17:37)
[2019-04-17] MEDS: BALSAM PERU/CASTOR OIL 60 GM TUBE TOP SCH ×2 (08:44→20:18)
[2019-04-17] MEDS: DEXTROSE 5%-0.9% NACL 1,000 ML IV SCH (08:48)
[2019-04-17] MEDS ORDERED: FAT EMULSION 20% 250 ML IV SCH (09:00)
--- NOTE | 2019-04-17 09:48 | CONS ---
Consult Date/Type/Reason Admit Date/Time Apr 01, 2019 at 17:43 Initial Consult Date 04/03/19 Type of Consult Pulmonary Requesting Provider: ADA RANGEL DO Date/Time of Note DATE: 04/17/19 TIME: 09:47 Subjective Patient continues to require vasopressors. Awake alert this morning. Still has significant generalized weakness. Objective Vital Signs Date Temp Pulse Resp B/P (MAP) Pulse Ox O2 O2 Flow FiO2 Time Delivery Rate 04/17/19 92 21 106/65 87 06:30 (79) 04/17/19 Nasal 06:00 Cannula 04/17/19 98.1 04:00 04/17/19 4.0 00:59 Intake and Output 04/16/19 04/16/19 04/17/19 1515:00 23:00 07:00 IntakeIntake Total 678.125 ml 990.33 ml 868.00 ml OutputOutput Total 1500 ml 0 ml 0 ml BalanceBalance -821.875 ml 990.33 ml 868.00 ml Exam GENERAL: Elderly appearing gentleman on nasal cannula O2. VITAL SIGNS: per chart NECK: Supple. No JVD or lymphadenopathy. CARDIAC EXAM: S1, S2. No added sounds or murmurs. CHEST: clear bilaterally, No added sounds, rales or wheezes ABDOMEN: Soft, nontender. No guarding or rebound. EXTREMITIES: No cyanosis, clubbing or edema. NEUROLOGIC: Generalized weakness. No focal deficits Vent Setting Fraction of Inspired Oxygen pe: 28 Results/Medications Result Diagram: 04/17/19 0440 04/17/19 0435 Results 24 hrs Laboratory Tests Test 04/16/19 10:41 04/16/19 18:14 04/16/19 20:14 04/16/19 21:21 Bedside Glucose 163 112 133 Sodium Level 138 Potassium Level 4.3 Chloride Level 107 Carbon Dioxide Level 23 Anion Gap 8 Blood Urea Nitrogen 24 H Creatinine 3.43 #H Est Glomerular Filtrat Rate mL/min Glucose Level 131 Calcium Level 7.6 L Phosphorus Level 4.2 Magnesium Level 2.1 Total Bilirubin 0.4 Direct Bilirubin 0.00 Indirect Bilirubin 0.4 Aspartate Amino 44 Transf (AST/SGOT) Alanine 28 Aminotransferase (AL T/SGPT) Alkaline Phosphatase 107 Total Protein 5.2 L Albumin 2.1 L Globulin 3.10 Albumin/Globulin 0.67 Ratio Prealbumin 3.8 L Triglycerides Level 141 Test 04/17/19 04:35 04/17/19 04:40 04/17/19 08:35 Sodium Level 142 Potassium Level 4.2 Chloride Level 108 Carbon Dioxide Level 23 Anion Gap 11 Blood Urea Nitrogen 24 H Creatinine 3.53 H Est Glomerular Filtrat Rate mL/min Glucose Level 132 Calcium Level 8.0 L Phosphorus Level 4.5 Magnesium Level 2.1 White Blood Count 27.8 H Red Blood Count 3.23 L Hemoglobin 9.4 L Hematocrit 31.8 L Mean Corpuscular 98.5 Volume Mean Corpuscular 29.1 Hemoglobin Mean Corpuscular 29.6 L Hemoglobin Concent Red Cell 17.6 H Distribution Width Platelet Count 340 Mean Platelet Volume 11.1 H Immature 1.100 H Granulocytes % Neutrophils % Lymphocytes % Monocytes % Eosinophils % Basophils % Nucleated Red Blood 0.1 H Cells % Immature 0.300 H Granulocytes # Neutrophils # Lymphocytes # Monocytes # Eosinophils # Basophils # Nucleated Red Blood Cells # Pathologist YES Review (Hematology) Bedside Glucose 141 Medications Current Medications Amiodarone HCl (Cordarone) 200 mg DAILY PO Last administered on 04/17/19 08:42; Admin Dose 200 MG; Start 04/02/19 at 09:00 Aspirin (Halfprin) 81 mg DAILY PO Last administered on 04/15/19 08:29; Admin Dose 81 MG; Start 04/02/19 at 09:00 Atorvastatin Calcium (Lipitor) 20 mg QHS PO Last administered on 04/15/19 20:53; Admin Dose 20 MG; Start 04/01/19 at 21:00 Docusate Sodium (Colace) 100 mg BID PO Last administered on 04/17/19 08:42; Ad min Dose 100 MG; Start 04/01/19 at 21:00 Montelukast Sodium (Singulair) 10 mg QHS PO Last administered on 04/15/19 20:53; Admin Dose 10 MG; Start 04/01/19 at 21:00 Sevelamer Carbonate (Renvela) 1.6 gm BID WITH MEALS PO Last administered on 04/17/19 08:43; Admin Dose 1.6 GM; Start 04/01/19 at 21:00 Albuterol/ Ipratropium (Duoneb) 3 ml Q2H RESP THERAPY PRN NEB SHORTNESS OF BREATH Last administered on 04/09/19 21:01; Admin Dose 3 ML; Start 04/01/19 at 21:00 Zolpidem Tartrate (Ambien) 5 mg QHS PRN PO INSOMNIA Last administered on 04/15/19 21:58; Admin Dose 5 MG; Start 04/01/19 at 21:00 Norepinephrine 250 ml @ 1.875 mls/ hr TITRATE IV Last administered on 04/17/19 02:35; Admin Dose 56.25 MLS/HR; Start 04/02/19 at 02:30 IV Flush (NS 10 ml) 10 ml PRN PRN IV IV PROTOCOL; Start 04/03/19 at 17:00 Epoetin Jatinder-epbx (Retacrit (Esrd)) 10,000 unit AFTER EACH DIALYSIS SC Last administered on 04/10/19 15:55; Admin Dose 10,000 UNIT; Start 04/04/19 at 16:00 Miscellaneous Information 1 ea NOTE XX ; Start 04/05/19 at 11:30 Glucose (Glutose) 15 gm Q15M PRN PO DECREASED GLUCOSE; Start 04/05/19 at 11:30 Glucose (Glutose) 22.5 gm Q15M PRN PO DECREASED GLUCOSE; Start 04/05/19 at 11:30 Dextrose (D50w Syringe) 25 ml Q15M PRN IV DECREASED GLUCOSE Last administered on 04/11/19 11:46; Admin Dose 25 ML; Start 04/05/19 at 11:30 Dextrose (D50w Syringe) 50 ml Q15M PRN IV DECREASED GLUCOSE; Start 04/05/19 at 11:30 Glucagon (Glucagen) 1 mg Q15M PRN IM DECREASED GLUCOSE; Start 04/05/19 at 11:30 Glucose (Glutose) 15 gm Q15M PRN BUCCAL DECREASED GLUCOSE; Start 04/05/19 at 11:30 Diagnostic Test (Pha) (Accu-Chek) 1 ea 02 XX Last administered on 04/14/19at 01:31; Admin Dose 1 EA; Start 04/06/19 at 02:00 Insulin Aspart (Novolog Insulin Pen) NOVOLOG *MILD* ALGORITHM WITH MEALS BEDTIME SC Last administered on 04/17/19 08:39; Admin Dose 1 UNIT; Start 04/05/19 at 17:35 Insulin Glargine (Lantus) 20 units DAILY@2000 SC Last administered on 04/16/19 20:18; Admin Dose 20 UNITS; Start 04/06/19 at 20:00 Ondansetron HCl (Zofran Inj) 4 mg Q6H PRN IV NAUSEA AND/OR VOMITING Last administered on 04/15/19at 15:45; Admin Dose 4 MG; Start 04/07/19 at 17:00 Midodrine (Proamatine) 10 mg TID@0900,1300,1700 PO Last administered on 04/17/19 08:41; Admin Dose 10 MG; Start 04/12/19 at 09:00 Dextrose/Sodium Chloride 1,000 ml @ 50 mls/hr Q20H IV Last administered on 04/17/19 08:48; Admin Dose 50 MLS/HR; Start 04/13/19 at 08:00 Vancomycin HCl (Vanco Iv Per Pharmacy) VANCOMYCIN PER PHARMACY PER PROTOCOL XX ; Start 04/16/19 at 14:30 Meropenem/Sodium Chloride 50 ml @ 100 mls/hr Q12 IVPB Last administered on 04/17/19at 08:42; Admin Dose 100 MLS/HR; Start 04/16/19 at 15:30 Norepinephrine 16 mg/Dextrose 250 ml @ 0.94 mls/hr TITRATE IV Last administered on 04/17/19 06:56; Admin Dose 0.94 MLS/HR; Start 04/16/19 at 18:30 Vasopressin 60 unit/Dextrose 60 ml @ 1.2 mls/hr PRN IV ; Start 04/16/19 at 20 :00 Diagnostic Test (Pha) (Accu-Chek) 1 ea Q4 XX ; Start 04/16/19 at 21:00; Status UNV Total Parenteral Nutrition 1,000 ml @ 0 mls/hr Q0M IV ; Start 04/16/19 at 20:41; Status UNV Fat Emulsion Intravenous 250 ml @ 10.4 mls/hr DAILY IV ; Start 04/17/19 at 09:00; Status UNV Alteplase, Recombinant (Cathflo (Activase)) 2 mg MAY REPEAT X1 PRN CATHETER IF CATHETER REMAINS OCCULUDED Last administered on 04/17/19 04:06; Admin Dose 2 MG; Start 04/16/19 at 22:30 Assessment/Plan Hospital Course (Demo Recall) Assessment 1. Persistent septic shock requiring vasopressor support blood cultures positive for Bacteroides ongoing vasopressor requirement 2. History of end-stage renal failure on hemodialysis 3. History of cholangiocarcinoma. 4. History of arrhythmia with pacemaker 5. Diabetes mellitus 6. Dysphagia remains risk of aspiration. 7. Encephalopathy toxic metabolic, appears to be slowly improving 8. Hypoxemic respiratory failure with pleural effusion status post thoracentesis. Plan 1. Continue supplemental O2 as needed 2. Hemodialysis as tolerated. 3. Continue antibiotics per ID 4. Thoracentesis left lung. Pleural fluid studies now pending. 5. Titrate vasopressors to keep map greater than 65, no evidence of adrenal insufficiency with normal cortisol level noted. Still remains vasopressor dependent for several days. Consider midodrine. 6. Speech therapy recommendations aspiration precautions. Critical care time 40 minutes Consider hospice extremely poor prognosis. TRAE TRAVIS MD, [facility] Apr 17, 2019 09:48
--- NOTE | 2019-04-17 09:52 | CONS ---
Assessment/Plan Assessment/Plan Assessment/Plan (Daily) On [address] Delvalle and have decided upon no intubation no G- tube. Also code has been changed to DO NOT RESUSCITATE. They would like to take him home if at all possible when he is off pressors. Patient's pain symptom management is under control. Assessment/Plan (Daily) Patient with history of renal cell carcinoma Past medical history of liver cancer Congestive heart failure End-stage renal disease on hemodialysis Fluid and electrolyte abnormalities Encephalopathy secondary to the above Consultation Date/Type/Reason Admit Date/Time Apr 01, 2019 at 17:43 Date/Time of Note DATE: 04/17/19 TIME: 09:51 Past Medical History Home Meds Reported Medications Docusate Sodium* (Docusate Sodium*) 100 Mg Capsule, 100 MG PO BID, #60 CAP 04/01/19 Metoprolol Succinate* (Toprol XL*) 25 Mg Tab.sr.24h, 25 MG PO DAILY, #30 TAB 04/01/19 Aspirin* (Aspirin* EC) 81 Mg Tablet.dr, 81 MG PO DAILY, TAB 04/01/19 Fenofibrate, Micronized (Fenofibrate) 134 Mg Capsule, 134 MG PO DAILY, CAP 04/01/19 Sevelamer Carbonate* (Renvela*) 800 Mg Tablet, 1.6 GM PO BID, TAB 04/01/19 Amiodarone Hcl* (Amiodarone Hcl*) 200 Mg Tablet, 200 MG PO DAILY, #30 TAB TAKE Q ,TH,SAT WITH DIALYSIS 04/01/19 Montelukast Sodium* (Montelukast Sodium*) 10 Mg Tablet, 10 MG PO QHS, #30 TAB 04/01/19 [Nephro-Elieser] No Conflict Check, 1 TAB PO DAILY 04/01/19 Sacubitril/Valsartan (Entresto 24 mg-26 mg Tablet) 1 Each Tablet, 1 EACH PO BID, TAB 04/01/19 Midodrine* (Midodrine*) 5 Mg Tablet, 5 MG PO DAILY, TAB 04/01/19 Furosemide* (Furosemide*) 40 Mg Tablet, 40 MG PO DAILY, TAB 04/01/19 Atorvastatin Calcium* (Atorvastatin Calcium*) 20 Mg Tablet, 20 MG PO QHS, #30 TAB 04/01/19 Medications Current Medications Amiodarone HCl (Cordarone) 200 mg DAILY PO Last administered on 04/17/19 08:42; Admin Dose 200 MG; Start 04/02/19 at 09:00 Aspirin (Halfprin) 81 mg DAILY PO Last administered on 04/15/19 08:29; Admin Dose 81 MG; Start 04/02/19 at 09:00 Atorvastatin Calcium (Lipitor) 20 mg QHS PO Last administered on 04/15/19 20:53; Admin Dose 20 MG; Start 04/01/19 at 21:00 Docusate Sodium (Colace) 100 mg BID PO Last administered on 04/17/19 08:42; Admin Dose 100 MG; Start 04/01/19 at 21:00 Montelukast Sodium (Singulair) 10 mg QHS PO Last administered on 04/15/19 20:53; Admin Dose 10 MG; Start 04/01/19 at 21:00 Sevelamer Carbonate (Renvela) 1.6 gm BID WITH MEALS PO Last administered on 04/17/19 08:43; Admin Dose 1.6 GM; Start 04/01/19 at 21:00 Albuterol/ Ipratropium (Duoneb) 3 ml Q2H RESP THERAPY PRN NEB SHORTNESS OF B REATH Last administered on 04/09/19 21:01; Admin Dose 3 ML; Start 04/01/19 at 21:00 Zolpidem Tartrate (Ambien) 5 mg QHS PRN PO INSOMNIA Last administered on 04/15/19 21:58; Admin Dose 5 MG; Start 04/01/19 at 21:00 Norepinephrine 250 ml @ 1.875 mls/ hr TITRATE IV Last administered on 04/17/19 02:35; Admin Dose 56.25 MLS/HR; Start 04/02/19 at 02:30 IV Flush (NS 10 ml) 10 ml PRN PRN IV IV PROTOCOL; Start 04/03/19 at 17:00 Epoetin Jatinder-epbx (Retacrit (Esrd)) 10,000 unit AFTER EACH DIALYSIS SC Last administered on 04/10/19 15:55; Admin Dose 10,000 UNIT; Start 04/04/19 at 16:00 Miscellaneous Information 1 ea NOTE XX ; Start 04/05/19 at 11:30 Glucose (Glutose) 15 gm Q15M PRN PO DECREASED GLUCOSE; Start 04/05/19 at 11:30 Glucose (Glutose) 22.5 gm Q15M PRN PO DECREASED GLUCOSE; Start 04/05/19 at 11:30 Dextrose (D50w Syringe) 25 ml Q15M PRN IV DECREASED GLUCOSE Last administered on 04/11/19at 11:46; Admin Dose 25 ML; Start 04/05/19 at 11:30 Dextrose (D50w Syringe) 50 ml Q15M PRN IV DECREASED GLUCOSE; Start 04/05/19 at 11:30 Glucagon (Glucagen) 1 mg Q15M PRN IM DECREASED GLUCOSE; Start 04/05/19 at 11:30 Glucose (Glutose) 15 gm Q15M PRN BUCCAL DECREASED GLUCOSE; Start 04/05/19 at 11:30 Diagnostic Test (Pha) (Accu-Chek) 1 ea 02 XX Last administered on 04/14/19at 01:31; Admin Dose 1 EA; Start 04/06/19 at 02:00 Insulin Aspart (Novolog Insulin Pen) NOVOLOG *MILD* ALGORITHM WITH MEALS BEDTIME SC Last administered on 04/17/19at 08:39; Admin Dose 1 UNIT; Start 04/05/19 at 17:35 Insulin Glargine (Lantus) 20 units DAILY@2000 SC Last administered on 04/16/19at 20:18; Admin Dose 20 UNITS; Start 04/06/19 at 20:00 Ondansetron HCl (Zofran Inj) 4 mg Q6H PRN IV NAUSEA AND/OR VOMITING Last administered on 04/15/19at 15:45; Admin Dose 4 MG; Start 04/07/19 at 17:00 Midodrine (Proamatine) 10 mg TID@0900,1300,1700 PO Last administered on 04/17/19at 08:41; Admin Dose 10 MG; Start 04/12/19 at 09:00 Dextrose/Sodium Chloride 1,000 ml @ 50 mls/hr Q20H IV Last administered on 04/17/19at 08:48; Admin Dose 50 MLS/HR; Start 04/13/19 at 08:00 Vancomycin HCl (Vanco Iv Per Pharmacy) VANCOMYCIN PER PHARMACY PER PROTOCOL XX ; Start 04/16/19 at 14:30 Meropenem/Sodium Chloride 50 ml @ 100 mls/hr Q12 IVPB Last administered on 04/17/19at 08:42; Admin Dose 100 MLS/HR; Start 04/16/19 at 15:30 Norepinephrine 16 mg/Dextrose 250 ml @ 0.94 mls/hr TITRATE IV Last administered on 04/17/19at 06:56; Admin Dose 0.94 MLS/HR; Start 04/16/19 at 18:30 Vasopressin 60 unit/Dextrose 60 ml @ 1.2 mls/hr PRN IV ; Start 04/16/19 at 20:00 Diagnostic Test (Pha) (Accu-Chek) 1 ea Q4 XX ; Start 04/16/19 at 21:00; Status UNV Total Parenteral Nutrition 1,000 ml @ 0 mls/hr Q0M IV ; Start 04/16/19 at 20:41; Status UNV Fat Emulsion Intravenous 250 ml @ 10.4 mls/hr DAILY IV ; Start 04/17/19 at 09:00; Status UNV Alteplase, Recombinant (Cathflo (Activase)) 2 mg MAY REPEAT X1 PRN CATHETER IF CATHETER REMAINS OCCULUDED Last administered on 04/17/19at 04:06; Admin Dose 2 MG; Start 04/16/19 at 22:30 Allergies: Coded Allergies: No Known Allergy (Unverified , 04/01/19) Social History Smoking Status: Former smoker Exam/Review of Systems Exam Vitals Vital Signs Date Temp Pulse Resp B/P (MAP) Pulse Ox O2 O2 Flow FiO2 Time Delivery Rate 04/17/19 92 21 106/65 87 06:30 (79) 04/17/19 Nasal 06:00 Cannula 04/17/19 98.1 04:00 04/17/19 4.0 00:59 Intake and Output 04/16/19 04/16/19 04/17/19 1515:00 23:00 07:00 IntakeIntake Total 678.125 ml 990.33 ml 868.00 ml OutputOutput Total 1500 ml 0 ml 0 ml BalanceBalance -821.875 ml 990.33 ml 868.00 ml Results Result Diagram: 04/17/19 0440 04/17/19 0435 Results 24hrs Laboratory Tests Test 04/16/19 10:41 04/16/19 18:14 04/16/19 20:14 04/16/19 21:21 Bedside Glucose 163 112 133 Sodium Level 138 Potassium Level 4.3 Chloride Level 107 Carbon Dioxide Level 23 Anion Gap 8 Blood Urea Nitrogen 24 H Creatinine 3.43 #H Est Glomerular Filtrat Rate mL/min Glucose Level 131 Calcium Level 7.6 L Phosphorus Level 4.2 Magnesium Level 2.1 Total Bilirubin 0.4 Direct Bilirubin 0.00 Indirect Bilirubin 0.4 Aspartate Amino 44 Transf (AST/SGOT) Alanine 28 Aminotransferase (AL T/SGPT) Alkaline Phosphatase 107 Total Protein 5.2 L Albumin 2.1 L Globulin 3.10 Albumin/Globulin 0.67 Ratio Prealbumin 3.8 L Triglycerides Level 141 Test 04/17/19 04:35 04/17/19 04:40 04/17/19 08:35 Sodium Level 142 Potassium Level 4.2 Chloride Level 108 Carbon Dioxide Level 23 Anion Gap 11 Blood Urea Nitrogen 24 H Creatinine 3.53 H Est Glomerular Filtrat Rate mL/min Glucose Level 132 Calcium Level 8.0 L Phosphorus Level 4.5 Magnesium Level 2.1 White Blood Count 27.8 H Red Blood Count 3.23 L Hemoglobin 9.4 L Hematocrit 31.8 L Mean Corpuscular 98.5 Volume Mean Corpuscular 29.1 Hemoglobin Mean Corpuscular 29.6 L Hemoglobin Concent Red Cell 17.6 H Distribution Width Platelet Count 340 Mean Platelet Volume 11.1 H Immature 1.100 H Granulocytes % Neutrophils % Lymphocytes % Monocytes % Eosinophils % Basophils % Nucleated Red Blood 0.1 H Cells % Immature 0.300 H Granulocytes # Neutrophils # Lymphocytes # Monocytes # Eosinophils # Basophils # Nucleated Red Blood Cells # Pathologist YES Review (Hematology) Bedside Glucose 141 Medications Medication Current Medications Amiodarone HCl (Cordarone) 200 mg DAILY PO Last administered on 04/17/19 08:42; Admin Dose 200 MG; Start 04/02/19 at 09:00 Aspirin (Halfprin) 81 mg DAILY PO Last administered on 04/15/19 08:29; Admin Dose 81 MG; Start 04/02/19 at 09:00 Atorvastatin Calcium (Lipitor) 20 mg QHS PO Last administered on 04/15/19at 20:53; Admin Dose 20 MG; Start 04/01/19 at 21:00 Docusate Sodium (Colace) 100 mg BID PO Last administered on 04/17/19 08:42; Admin Dose 100 MG; Start 04/01/19 at 21:00 Montelukast Sodium (Singulair) 10 mg QHS PO Last administered on 04/15/19at 20:53; Admin Dose 10 MG; Start 04/01/19 at 21:00 Sevelamer Carbonate (Renvela) 1.6 gm BID WITH MEALS PO Last administered on 04/17/19 08:43; Admin Dose 1.6 GM; Start 04/01/19 at 21:00 Albuterol/ Ipratropium (Duoneb) 3 ml Q2H RESP THERAPY PRN NEB SHORTNESS OF BREATH Last administered on 04/09/19at 21:01; Admin Dose 3 ML; Start 04/01/19 at 21:00 Zolpidem Tartrate (Ambien) 5 mg QHS PRN PO INSOMNIA Last administered on 04/15/19 21:58; Admin Dose 5 MG; Start 04/01/19 at 21:00 Norepinephrine 250 ml @ 1.875 mls/ hr TITRATE IV Last administered on 04/17/19 02:35; Admin Dose 56.25 MLS/HR; Start 04/02/19 at 02:30 IV Flush (NS 10 ml) 10 ml PRN PRN IV IV PROTOCOL; Start 04/03/19 at 17:00 Epoetin Jatinder-epbx (Retacrit (Esrd)) 10,000 unit AFTER EACH DIALYSIS SC Last administered on 04/10/19at 15:55; Admin Dose 10,000 UNIT; Start 04/04/19 at 16:00 Miscellaneous Information 1 ea NOTE XX ; Start 04/05/19 at 11:30 Glucose (Glutose) 15 gm Q15M PRN PO DECREASED GLUCOSE; Start 04/05/19 at 11:30 Glucose (Glutose) 22.5 gm Q15M PRN PO DECREASED GLUCOSE; Start 04/05/19 at 11:30 Dextrose (D50w Syringe) 25 ml Q15M PRN IV DECREASED GLUCOSE Last administered on 04/11/19at 11:46; Admin Dose 25 ML; Start 04/05/19 at 11:30 Dextrose (D50w Syringe) 50 ml Q15M PRN IV DECREASED GLUCOSE; Start 04/05/19 at 11:30 Glucagon (Glucagen) 1 mg Q15M PRN IM DECREASED GLUCOSE; Start 04/05/19 at 11:30 Glucose (Glutose) 15 gm Q15M PRN BUCCAL DECREASED GLUCOSE; Start 04/05/19 at 11:30 Diagnostic Test (Pha) (Accu-Chek) 1 ea 02 XX Last administered on 04/14/19 01:31; Admin Dose 1 EA; Start 04/06/19 at 02:00 Insulin Aspart (Novolog Insulin Pen) NOVOLOG *MILD* ALGORITHM WITH MEALS BEDTIME SC Last administered on 04/17/19 08:39; Admin Dose 1 UNIT; Start 04/05/19 at 17:35 Insulin Glargine (Lantus) 20 units DAILY@2000 SC Last administered on 04/16/19 20:18; Admin Dose 20 UNITS; Start 04/06/19 at 20:00 Ondansetron HCl (Zofran Inj) 4 mg Q6H PRN IV NAUSEA AND/OR VOMITING Last administered on 04/15/19 15:45; Admin Dose 4 MG; Start 04/07/19 at 17:00 Midodrine (Proamatine) 10 mg TID@0900,1300,1700 PO Last administered on 04/17/19 08:41; Admin Dose 10 MG; Start 04/12/19 at 09:00 Dextrose/Sodium Chloride 1,000 ml @ 50 mls/hr Q20H IV Last administered on 04/17/19 08:48; Admin Dose 50 MLS/HR; Start 04/13/19 at 08:00 Vancomycin HCl (Vanco Iv Per Pharmacy) VANCOMYCIN PER PHARMACY PER PROTOCOL XX ; Start 04/16/19 at 14:30 Meropenem/Sodium Chloride 50 ml @ 100 mls/hr Q12 IVPB Last administered on 04/17/19 08:42; Admin Dose 100 MLS/HR; Start 04/16/19 at 15:30 Norepinephrine 16 mg/Dextrose 250 ml @ 0.94 mls/hr TITRATE IV Last admini stered on 04/17/19 06:56; Admin Dose 0.94 MLS/HR; Start 04/16/19 at 18:30 Vasopressin 60 unit/Dextrose 60 ml @ 1.2 mls/hr PRN IV ; Start 04/16/19 at 20:00 Diagnostic Test (Pha) (Accu-Chek) 1 ea Q4 XX ; Start 04/16/19 at 21:00; Status UNV Total Parenteral Nutrition 1,000 ml @ 0 mls/hr Q0M IV ; Start 04/16/19 at 20:41; Status UNV Fat Emulsion Intravenous 250 ml @ 10.4 mls/hr DAILY IV ; Start 04/17/19 at 09:00; Status UNV Alteplase, Recombinant (Cathflo (Activase)) 2 mg MAY REPEAT X1 PRN CATHETER IF CATHETER REMAINS OCCULUDED Last administered on 04/17/19at 04:06; Admin Dose 2 MG; Start 04/16/19 at 22:30 LEATHA CISNEROS Apr 17, 2019 09:52
--- NOTE | 2019-04-17 14:09 | CONS ---
Assessment/Plan Assessment/Plan Hospital Course (Demo Recall) No acute changes patient remains on Levophed drip very weak responsive in no distress no fevers overnight WBC 27.8 platelets 340 neutrophils 82 bands 4 Antimicrobials: Vancomycin, meropenem Indwelling's: PICC line and upper extremity fistula Microbiology: Blood culture on admission grew Bacteroides fragilis, repeat cx neg Physical examination: This is an obese well-developed chronically ill elderly [place] man who is in no distress. Head atraumatic normocephalic neck is supple chest rise symmetrical breath sounds diminished bases. Heart: S1-S2. Tachycardic abdomen soft obese bowel sounds hypoactive extremities without cyanosis, trace edema Assessment: 1. Severe sepsis with shock 2. Bacteremia ? source==>likely intraabdominal 3. End-stage renal disease, hemodialysis dependent 4. Recently diagnosed hepatocellular carcinoma, poss obstructing mass and peritoneal carcinomatosis 5. Coronary artery disease status post permanent pacemaker 6. Diabetes 7. Atrial fibrillation 8. DNR Plan: Remains unchanged, started on broad-spectrum antibiotics for worsening leukocytosis, continue present care, pending palliative eval Consultation Date/Type/Reason Admit Date/Time Apr 01, 2019 at 17:43 Initial Consult Date 04/03/19 Type of Consult id Requesting Provider: ADA RANGEL DO Date/Time of Note DATE: 04/17/19 TIME: 14:09 Exam/Review of Systems Exam Vitals Vital Signs Date Temp Pulse Resp B/P (MAP) Pulse Ox O2 O2 Flow FiO2 Time Delivery Rate 04/17/19 98 12:00 04/17/19 21 106/65 87 06:30 (79) 04/17/19 Nasal 06:00 Cannula 04/17/19 98.1 04:00 04/17/19 4.0 00:59 Intake and Output 04/16/19 04/16/19 04/17/19 1515:00 23:00 07:00 IntakeIntake Total 678.125 ml 990.33 ml 868.00 ml OutputOutput Total 1500 ml 0 ml 0 ml BalanceBalance -821.875 ml 990.33 ml 868.00 ml Results Result Diagram: 04/17/19 0440 04/17/19 0435 Results 24hrs Laboratory Tests Test 04/16/19 18:14 04/16/19 20:14 04/16/19 21:21 04/17/19 04:35 Bedside Glucose 112 133 Sodium Level 138 142 Potassium Level 4.3 4.2 Chloride Level 107 108 Carbon Dioxide Level 23 23 Anion Gap 8 11 Blood Urea Nitrogen 24 H 24 H Creatinine 3.43 #H 3.53 H Est Glomerular Filtrat Rate mL/min Glucose Level 131 132 Calcium Level 7.6 L 8.0 L Phosphorus Level 4.2 4.5 Magnesium Level 2.1 2.1 Total Bilirubin 0.4 Direct Bilirubin 0.00 Indirect Bilirubin 0.4 Aspartate Amino 44 Transf (AST/SGOT) Alanine 28 Aminotransferase (ALT /SGPT) Alkaline Phosphatase 107 Total Protein 5.2 L Albumin 2.1 L Globulin 3.10 Albumin/Globulin 0.67 Ratio Prealbumin 3.8 L Triglycerides Level 141 Test 04/17/19 04:40 04/17/19 08:35 04/17/19 12:08 White Blood Count 27.8 H Red Blood Count 3.23 L Hemoglobin 9.4 L Hematocrit 31.8 L Mean Corpuscular 98.5 Volume Mean Corpuscular 29.1 Hemoglobin Mean Corpuscular 29.6 L Hemoglobin Concent Red Cell Distribution 17.6 H Width Platelet Count 340 Mean Platelet Volume 11.1 H Immature Granulocytes 1.100 H % Neutrophils % Segmented Neutrophils 82 H % (Manual) Band Neutrophils % 4 (Manual) Lymphocytes % Lymphocytes % 9 L (Manual) Monocytes % Monocytes % (Manual) 4 Eosinophils % Basophils % Basophils % (Manual) 1 Nucleated Red Blood 0.1 H Cells % Immature Granulocytes 0.300 H # Neutrophils # Neutrophils # 23.1 H (Manual) Band Neutrophils # 1.1 H Lymphocytes (Manual) 2.5 Lymphocytes # Monocytes # Monocytes # (Manual) 1.1 H Eosinophils # Basophils # Basophils # (Manual) 0.2 H Nucleated Red Blood Cells # Pathologist YES Review (Hematology) Platelet Estimate NORMAL Giant Platelets 2 H Polychromasia 2+ Poikilocytosis 1+ Anisocytosis 1+ Bedside Glucose 141 140 Medications Medication Current Medications Amiodarone HCl (Cordarone) 200 mg DAILY PO Last administered on 04/17/19at 08:42; Admin Dose 200 MG; Start 04/02/19 at 09:00 Aspirin (Halfprin) 81 mg DAILY PO Last administered on 04/15/19at 08:29; Admin Dose 81 MG; Start 04/02/19 at 09:00 Atorvastatin Calcium (Lipitor) 20 mg QHS PO Last administered on 04/15/19 20:53; Admin Dose 20 MG; Start 04/01/19 at 21:00 Docusate Sodium (Colace) 100 mg BID PO Last administered on 04/17/19 08:42; Admin Dose 100 MG; Start 04/01/19 at 21:00 Montelukast Sodium (Singulair) 10 mg QHS PO Last administered on 04/15/19 20: 53; Admin Dose 10 MG; Start 04/01/19 at 21:00 Sevelamer Carbonate (Renvela) 1.6 gm BID WITH MEALS PO Last administered on 04/17/19 08:43; Admin Dose 1.6 GM; Start 04/01/19 at 21:00 Albuterol/ Ipratropium (Duoneb) 3 ml Q2H RESP THERAPY PRN NEB SHORTNESS OF BREATH Last administered on 04/09/19 21:01; Admin Dose 3 ML; Start 04/01/19 at 21:00 Zolpidem Tartrate (Ambien) 5 mg QHS PRN PO INSOMNIA Last administered on 04/15/19 21:58; Admin Dose 5 MG; Start 04/01/19 at 21:00 Norepinephrine 250 ml @ 1.875 mls/ hr TITRATE IV Last administered on 04/17/19 02:35; Admin Dose 56.25 MLS/HR; Start 04/02/19 at 02:30 IV Flush (NS 10 ml) 10 ml PRN PRN IV IV PROTOCOL; Start 04/03/19 at 17:00 Epoetin Jatinder-epbx (Retacrit (Esrd)) 10,000 unit AFTER EACH DIALYSIS SC Last administered on 04/10/19 15:55; Admin Dose 10,000 UNIT; Start 04/04/19 at 16:00 Miscellaneous Information 1 ea NOTE XX ; Start 04/05/19 at 11:30 Glucose (Glutose) 15 gm Q15M PRN PO DECREASED GLUCOSE; Start 04/05/19 at 11:30 Glucose (Glutose) 22.5 gm Q15M PRN PO DECREASED GLUCOSE; Start 04/05/19 at 11:30 Dextrose (D50w Syringe) 25 ml Q15M PRN IV DECREASED GLUCOSE Last administered on 04/11/19 11:46; Admin Dose 25 ML; Start 04/05/19 at 11:30 Dextrose (D50w Syringe) 50 ml Q15M PRN IV DECREASED GLUCOSE; Start 04/05/19 at 11:30 Glucagon (Glucagen) 1 mg Q15M PRN IM DECREASED GLUCOSE; Start 04/05/19 at 11:30 Glucose (Glutose) 15 gm Q15M PRN BUCCAL DECREASED GLUCOSE; Start 04/05/19 at 11:30 Diagnostic Test (Pha) (Accu-Chek) 1 ea 02 XX Last administered on 04/14/19at 01:31; Admin Dose 1 EA; Start 04/06/19 at 02:00 Insulin Aspart (Novolog Insulin Pen) NOVOLOG *MILD* ALGORITHM WITH MEALS BEDTIME SC Last administered on 04/17/19 08:39; Admin Dose 1 UNIT; Start 04/05/19 at 17:35 Insulin Glargine (Lantus) 20 units DAILY@2000 SC Last administered on 04/16/19 20:18; Admin Dose 20 UNITS; Start 04/06/19 at 20:00 Ondansetron HCl (Zofran Inj) 4 mg Q6H PRN IV NAUSEA AND/OR VOMITING Last administered on 04/15/19 15:45; Admin Dose 4 MG; Start 04/07/19 at 17:00 Midodrine (Proamatine) 10 mg TID@0900,1300,1700 PO Last administered on 04/17/19 13:34; Admin Dose 10 MG; Start 04/12/19 at 09:00 Dextrose/Sodium Chloride 1,000 ml @ 50 mls/hr Q20H IV Last administered on 04/17/19at 08:48; Admin Dose 50 MLS/HR; Start 04/13/19 at 08:00 Vancomycin HCl (Vanco Iv Per Pharmacy) VANCOMYCIN PER PHARMACY PER PROTOCOL XX ; Start 04/16/19 at 14:30 Meropenem/Sodium Chloride 50 ml @ 100 mls/hr Q12 IVPB Last administered on 04/17/19 08:42; Admin Dose 100 MLS/HR; Start 04/16/19 at 15:30 Norepinephrine 16 mg/Dextrose 250 ml @ 0.94 mls/hr TITRATE IV Last administered on 04/17/19 06:56; Admin Dose 0.94 MLS/HR; Start 04/16/19 at 18:30 Vasopressin 60 unit/Dextrose 60 ml @ 1.2 mls/hr PRN IV ; Start 04/16/19 at 20:00 Diagnostic Test (Pha) (Accu-Chek) 1 ea Q4 XX ; Start 04/16/19 at 21:00; Status UNV Total Parenteral Nutrition 1,000 ml @ 0 mls/hr Q0M IV ; Start 04/16/19 at 20:41; Status UNV Fat Emulsion Intravenous 250 ml @ 10.4 mls/hr DAILY IV ; Start 04/17/19 at 09:00; Status UNV Alteplase, Recombinant (Cathflo (Activase)) 2 mg MAY REPEAT X1 PRN CATHETER IF CATHETER REMAINS OCCULUDED Last administered on 04/17/19at 04:06; Admin Dose 2 MG; Start 04/16/19 at 22:30 JOAO RAHMAN NP Apr 17, 2019 14:09
--- NOTE | 2019-04-17 14:58 | CONS ---
Consult Date/Type/Reason Admit Date/Time Apr 01, 2019 at 17:43 Initial Consult Date 04/03/19 Type of Consultation: cv Requesting Provider: ADA RANGEL DO Date/Time of Note DATE: 04/17/19 TIME: 14:57 Subjective Subjective: Discussed with the staff. Telemetry was reviewed. Patient has remained in PACED rhythm mostly Patient remains in ICU and hypotensive and remains on levophed drip No report of any chest pain or pressure he denies PND orthopnea to me dw./ and family Objective: General: no acute distress HEENT: NC/AT. pupils are equal. round. NECK: no stridor. CV: RRR. systolic murmur; no gallop or rubs. PULM: no wheezing or rhonchi. GI: SOFT, NT, ND, no rebound or guarding Extremity: + B/L LE edema. no clubbing. neuro: awake Psych: calm rectal: deferred EKG shows ventricular paced rhythm Chest x-ray done 03/24/2019 shows: 1. New left-sided PICC in proximal SVC. 2. Persistent small left-sided pleural effusion with left lung base atelectasis/infiltrate. 3. Persistent patchy opacity of the right lung base. 4. Persistent cardiomegaly with mild vascular congestion CT 1. Again noted is severe dilatation of left intrahepatic biliary ducts. No gross evidence of hepatic mass is seen, though sensitivity is markedly limited without IV contrast. Findings remain concerning for obstructive mass in the central left hepatic lobe, as described in the prior CT report. 2. Findings compatible with peritoneal carcinomatosis. Moderate ascites, grossly stable. 3. Stable mild cardiomegaly. Coronary arterial and aortoiliac atherosclerotic calcifications. 4. Mild to moderate bilateral pleural effusions, grossly stable. Bibasilar atelectasis. 5. Cholelithiasis, without evidence for cholecystitis. 6. Chronic bilateral renal cortical thinning and atrophy, unchanged. Objective Vitals Vital Signs Date Temp Pulse Resp B/P (MAP) Pulse Ox O2 O2 Flow FiO2 Time Delivery Rate 04/17/19 98 12:00 04/17/19 21 106/65 87 06:30 (79) 04/17/19 Nasal 06:00 Cannula 04/17/19 98.1 04:00 04/17/19 4.0 00:59 Intake and Output 04/16/19 04/16/19 04/17/19 1515:00 23:00 07:00 IntakeIntake Total 678.125 ml 990.33 ml 868.00 ml OutputOutput Total 1500 ml 0 ml 0 ml BalanceBalance -821.875 ml 990.33 ml 868.00 ml Results/Medications Result Diagram: 04/17/19 0440 04/17/19 0435 Results 24 hrs Laboratory Tests Test 04/16/19 18:14 04/16/19 20:14 04/16/19 21:21 04/17/19 04:35 Bedside Glucose 112 133 Sodium Level 138 142 Potassium Level 4.3 4.2 Chloride Level 107 108 Carbon Dioxide 23 23 Level Anion Gap 8 11 Blood Urea 24 H 24 H Nitrogen Creatinine 3.43 #H 3.53 H Est Glomerular Filtrat Rate mL/min Glucose Level 131 132 Calcium Level 7.6 L 8.0 L Phosphorus Level 4.2 4.5 Magnesium Level 2.1 2.1 Total Bilirubin 0.4 Direct Bilirubin 0.00 Indirect 0.4 Bilirubin Aspartate Amino 44 Transf (AST/SGOT) Alanine 28 Aminotransferase (ALT/SGPT) Alkaline 107 Phosphatase Total Protein 5.2 L Albumin 2.1 L Globulin 3.10 Albumin/Globulin 0.67 Ratio Prealbumin 3.8 L Triglycerides 141 Level Test 04/17/19 04:40 04/17/19 08:35 04/17/19 12:08 White Blood Count 27.8 H Red Blood Count 3.23 L Hemoglobin 9.4 L Hematocrit 31.8 L Mean Corpuscular 98.5 Volume Mean Corpuscular 29.1 Hemoglobin Mean Corpuscular 29.6 L Hemoglobin Concen t Red Cell 17.6 H Distribution Width Platelet Count 340 Mean Platelet 11.1 H Volume Immature 1.100 H Granulocytes % Neutrophils % Segmented 82 H Neutrophils % (Manual) Band Neutrophils 4 % (Manual) Lymphocytes % Lymphocytes % 9 L (Manual) Monocytes % Monocytes % 4 (Manual) Eosinophils % Basophils % Basophils % 1 (Manual) Nucleated Red 0.1 H Blood Cells % Immature 0.300 H Granulocytes # Neutrophils # Neutrophils # 23.1 H (Manual) Band Neutrophils 1.1 H # Lymphocytes 2.5 (Manual) Lymphocytes # Monocytes # Monocytes # 1.1 H (Manual) Eosinophils # Basophils # Basophils # 0.2 H (Manual) Nucleated Red Blood Cells # Pathologist YES Review (Hematolog y) Platelet Estimate NORMAL Giant Platelets 2 H Polychromasia 2+ Poikilocytosis 1+ Anisocytosis 1+ Path Consult JUDY UGARTE, Signing Pathologi [facility] Glucose 141 140 Home Meds Reported Medications Docusate Sodium* (Docusate Sodium*) 100 Mg Capsule, 100 MG PO BID, #60 CAP 04/01/19 Metoprolol Succinate* (Toprol XL*) 25 Mg Tab.sr.24h, 25 MG PO DAILY, #30 TAB 04/01/19 Aspirin* (Aspirin* EC) 81 Mg Tablet.dr, 81 MG PO DAILY, TAB 04/01/19 Fenofibrate, Micronized (Fenofibrate) 134 Mg Capsule, 134 MG PO DAILY, CAP 04/01/19 Sevelamer Carbonate* (Renvela*) 800 Mg Tablet, 1.6 GM PO BID, TAB 04/01/19 Amiodarone Hcl* (Amiodarone Hcl*) 200 Mg Tablet, 200 MG PO DAILY, #30 TAB TAKE Q ,,SAT WITH DIALYSIS 04/01/19 Montelukast Sodium* (Montelukast Sodium*) 10 Mg Tablet, 10 MG PO QHS, #30 TAB 04/01/19 [Nephro-Elieser] No Conflict Check, 1 TAB PO DAILY 04/01/19 Sacubitril/Valsartan (Entresto 24 mg-26 mg Tablet) 1 Each Tablet, 1 EACH PO BID, TAB 04/01/19 Midodrine* (Midodrine*) 5 Mg Tablet, 5 MG PO DAILY, TAB 04/01/19 Furosemide* (Furosemide*) 40 Mg Tablet, 40 MG PO DAILY, TAB 04/01/19 Atorvastatin Calcium* (Atorvastatin Calcium*) 20 Mg Tablet, 20 MG PO QHS, #30 TAB 04/01/19 Medications Current Medications Amiodarone HCl (Cordarone) 200 mg DAILY PO Last administered on 04/17/19at 08:42; Admin Dose 200 MG; Start 04/02/19 at 09:00 Aspirin (Halfprin) 81 mg DAILY PO Last administered on 04/15/19at 08:29; Admin Dose 81 MG; Start 04/02/19 at 09:00 Atorvastatin Calcium (Lipitor) 20 mg QHS PO Last administered on 04/15/19at 20:53; Admin Dose 20 MG; Start 04/01/19 at 21:00 Docusate Sodium (Colace) 100 mg BID PO Last administered on 04/17/19 08:42; Admin Dose 100 MG; Start 04/01/19 at 21:00 Montelukast Sodium (Singulair) 10 mg QHS PO Last administered on 04/15/19 20:53; Admin Dose 10 MG; Start 04/01/19 at 21:00 Sevelamer Carbonate (Renvela) 1.6 gm BID WITH MEALS PO Last administered on 04/17/19 08:43; Admin Dose 1.6 GM; Start 04/01/19 at 21:00 Albuterol/ Ipratropium (Duoneb) 3 ml Q2H RESP THERAPY PRN NEB SHORTNESS OF BREATH Last administered on 04/09/19 21:01; Admin Dose 3 ML; Start 04/01/19 at 21:00 Zolpidem Tartrate (Ambien) 5 mg QHS PRN PO INSOMNIA Last administered on 04/15/19 21:58; Admin Dose 5 MG; Start 04/01/19 at 21:00 Norepinephrine 250 ml @ 1.875 mls/ hr TITRATE IV Last administered on 04/17/19 02:35; Admin Dose 56.25 MLS/HR; Start 04/02/19 at 02:30 IV Flush (NS 10 ml) 10 ml PRN PRN IV IV PROTOCOL; Start 04/03/19 at 17:00 Epoetin Jatinder-epbx (Retacrit (Esrd)) 10,000 unit AFTER EACH DIALYSIS SC Last administered on 04/10/19 15:55; Admin Dose 10,000 UNIT; Start 04/04/19 at 16:00 Miscellaneous Information 1 ea NOTE XX ; Start 04/05/19 at 11:30 Glucose (Glutose) 15 gm Q15M PRN PO DECREASED GLUCOSE; Start 04/05/19 at 11:30 Glucose (Glutose) 22.5 gm Q15M PRN PO DECREASED GLUCOSE; Start 04/05/19 at 11:30 Dextrose (D50w Syringe) 25 ml Q15M PRN IV DECREASED GLUCOSE Last administered on 04/11/19 11:46; Admin Dose 25 ML; Start 04/05/19 at 11:30 Dextrose (D50w Syringe) 50 ml Q15M PRN IV DECREASED GLUCOSE; Start 04/05/19 at 11:30 Glucagon (Glucagen) 1 mg Q15M PRN IM DECREASED GLUCOSE; Start 04/05/19 at 11:30 Glucose (Glutose) 15 gm Q15M PRN BUCCAL DECREASED GLUCOSE; Start 04/05/19 at 11:30 Diagnostic Test (Pha) (Accu-Chek) 1 ea 02 XX Last administered on 04/14/19 01:31; Admin Dose 1 EA; Start 04/06/19 at 02:00 Insulin Aspart (Novolog Insulin Pen) NOVOLOG *MILD* ALGORITHM WITH MEALS BEDTIME SC Last administered on 04/17/19 08:39; Admin Dose 1 UNIT; Start 04/05/19 at 17:35 Insulin Glargine (Lantus) 20 units DAILY@2000 SC Last administered on 04/16/19 20:18; Admin Dose 20 UNITS; Start 04/06/19 at 20:00 Ondansetron HCl (Zofran Inj) 4 mg Q6H PRN IV NAUSEA AND/OR VOMITING Last administered on 04/15/19at 15:45; Admin Dose 4 MG; Start 04/07/19 at 17:00 Midodrine (Proamatine) 10 mg TID@0900,1300,1700 PO Last administered on 04/17/19 13:34; Admin Dose 10 MG; Start 04/12/19 at 09:00 Dextrose/Sodium Chloride 1,000 ml @ 50 mls/hr Q20H IV Last administered on 04/17/19 08:48; Admin Dose 50 MLS/HR; Start 04/13/19 at 08:00 Vancomycin HCl (Vanco Iv Per Pharmacy) VANCOMYCIN PER PHARMACY PER PROTOCOL XX ; Start 04/16/19 at 14:30 Meropenem/Sodium Chloride 50 ml @ 100 mls/hr Q12 IVPB Last administered on 04/17/19 08:42; Admin Dose 100 MLS/HR; Start 04/16/19 at 15:30 Norepinephrine 16 mg/Dextrose 250 ml @ 0.94 mls/hr TITRATE IV Last administered on 04/17/19 06:56; Admin Dose 0.94 MLS/HR; Start 04/16/19 at 18:30 Vasopressin 60 unit/Dextrose 60 ml @ 1.2 mls/hr PRN IV ; Start 04/16/19 at 20:00 Diagnostic Test (Pha) (Accu-Chek) 1 ea Q4 XX ; Start 04/16/19 at 21:00; Status UNV Total Parenteral Nutrition 1,000 ml @ 0 mls/hr Q0M IV ; Start 04/16/19 at 20:41; Status UNV Fat Emulsion Intravenous 250 ml @ 10.4 mls/hr DAILY IV ; Start 04/17/19 at 0 9:00; Status UNV Alteplase, Recombinant (Cathflo (Activase)) 2 mg MAY REPEAT X1 PRN CATHETER IF CATHETER REMAINS OCCULUDED Last administered on 04/17/19at 04:06; Admin Dose 2 MG; Start 04/16/19 at 22:30 Assessment/Plan Hospital Course (Demo Recall) Mildly abnormal troponin secondary to sepsis renal failure etc. Sepsis/pneumonia GNR bacteremia/ septic shock Pneumonia ? cholangiocarcinoma Renal failure dialysis dependent History of arrhythmia probably sick sinus syndrome versus heart block status post MRI compatible [employer] permanent pacemaker Encephalopathy Paroxysmal atrial fibrillation Recommendations: aspirin as long as ok with GI and no active bleeding is noted Antibiotic management as per internal medicine and consultants Continue to be hemodialysis as tolerated Unable to tolerate beta-damian due to his low blood pressure levophed as needed f/u GI consultation rec Pacemaker card reviewed. pacemaker is an MRI compatible and MRI can be done . need to call [employer] rep to change the pacemaker setting right before and after the MRCP. PLEASE CONTACT [employer] rep (Rubio at [phone]) to arrange for setting change fluid management as per renal Thank you for this referral. We will continue to follow along with you JOSE D SOLOMON MD [facility] JOSE D SOLOMON MD Apr 17, 2019 14:58
[2019-04-17] MEDS: INSULIN GLARGINE [LANTus] (100 UNITS/ML) SYG SC SCH (20:15)
[2019-04-17] MEDS: MONTELUKAST 10 MG TAB PO SCH (20:16)
[2019-04-17] MEDS: ATORVASTATIN 20 MG TAB PO SCH (20:18)
[2019-04-18] VITALS (101 sets, daily range): BP systolic 63–140; BP diastolic 35–102; PULSE 68–118; RESP 14–59
[2019-04-18] MEDS: ACCU-CHEK XX SCH ×3 (01:12→20:54)
[2019-04-18] MEDS: ZOLPIDEM 5 MG TAB PO PRN (03:37)
[2019-04-18] MEDS: DEXTROSE 5%-0.9% NACL 1,000 ML IV SCH ×2 (03:52→12:18)
--- NOTE | 2019-04-18 07:12 | CONS ---
Consult Date/Type/Reason Admit Date/Time Apr 01, 2019 at 17:43 Initial Consult Date 04/03/19 Type of Consultation: cv Requesting Provider: ADA RANGEL DO Date/Time of Note DATE: 04/18/19 TIME: 07:09 Subjective Interventional cardiology follow-up progress note Subjective: Discussed with the staff. Telemetry was reviewed. Patient has remained in PACED rhythm mostly Patient remains in ICU and hypotensive and still hypotensive and on levophed drip No report of any chest pain or pressure he denies PND orthopnea to me Objective: General: no acute distress HEENT: NC/AT. pupils are equal. round. NECK: no stridor. CV: RRR. systolic murmur; no gallop or rubs. PULM: no wheezing or rhonchi. GI: SOFT, NT, ND, no rebound or guarding Extremity: + B/L LE edema. no clubbing. neuro: awake Psych: calm rectal: deferred EKG shows ventricular paced rhythm Chest x-ray done 03/24/2019 shows: 1. New left-sided PICC in proximal SVC. 2. Persistent small left-sided pleural effusion with left lung base atelectasis/infiltrate. 3. Persistent patchy opacity of the right lung base. 4. Persistent cardiomegaly with mild vascular congestion CT 1. Again noted is severe dilatation of left intrahepatic biliary ducts. No gross evidence of hepatic mass is seen, though sensitivity is markedly limited without IV contrast. Findings remain concerning for obstructive mass in the central left hepatic lobe, as described in the prior CT report. 2. Findings compatible with peritoneal carcinomatosis. Moderate ascites, grossly stable. 3. Stable mild cardiomegaly. Coronary arterial and aortoiliac atherosclerotic calcifications. 4. Mild to moderate bilateral pleural effusions, grossly stable. Bibasilar atelectasis. 5. Cholelithiasis, without evidence for cholecystitis. 6. Chronic bilateral renal cortical thinning and atrophy, unchanged. Objective Vitals Vital Signs Date Temp Pulse Resp B/P (MAP) Pulse Ox O2 O2 Flow FiO2 Time Delivery Rate 04/18/19 94 21 98/46 (63) 99 06:15 04/18/19 Nasal 4.0 06:00 Cannula 04/18/19 97.2 04:00 Intake and Output 04/17/19 04/17/19 04/18/19 1515:00 23:00 07:00 IntakeIntake Total 679.93 ml 563.08 ml 485.28 ml OutputOutput Total 0 ml 0 ml 0 ml BalanceBalance 679.93 ml 563.08 ml 485.28 ml Results/Medications Result Diagram: 04/18/19 0422 04/18/19 0435 Results 24 hrs Laboratory Tests Test 04/17/19 08:35 04/17/19 12:08 04/17/19 17:36 04/17/19 20:10 Bedside Glucose 141 140 160 141 Test 04/18/19 04:22 04/18/19 04:35 White Blood Count 21.2 #H Red Blood Count 3.12 L Hemoglobin 9.2 L Hematocrit 30.4 L Mean Corpuscular Volume 97.4 Mean Corpuscular 29.5 Hemoglobin Mean Corpuscular 30.3 L Hemoglobin Concent Red Cell Distribution 17.5 H Width Platelet Count 287 Mean Platelet Volume 10.6 H Immature Granulocytes % 1.200 H Neutrophils % 81.5 H Lymphocytes % 11.0 L Monocytes % 5.6 Eosinophils % 0.4 Basophils % 0.3 Nucleated Red Blood 0.3 H Cells % Immature Granulocytes # 0.250 H Neutrophils # 17.3 H Lymphocytes # 2.3 Monocytes # 1.2 H Eosinophils # 0.1 Basophils # 0.1 Nucleated Red Blood 0.1 H Cells # Sodium Level 141 Potassium Level 4.2 Chloride Level 110 Carbon Dioxide Level 22 Anion Gap 9 Blood Urea Nitrogen 29 H Creatinine 4.36 H Est Glomerular Filtrat Rate mL/min Glucose Level 142 Calcium Level 7.9 L Phosphorus Level 4.7 Magnesium Level 2.1 Home Meds Reported Medications Docusate Sodium* (Docusate Sodium*) 100 Mg Capsule, 100 MG PO BID, #60 CAP 04/01/19 Metoprolol Succinate* (Toprol XL*) 25 Mg Tab.sr.24h, 25 MG PO DAILY, #30 TAB 04/01/19 Aspirin* (Aspirin* EC) 81 Mg Tablet.dr, 81 MG PO DAILY, TAB 04/01/19 Fenofibrate, Micronized (Fenofibrate) 134 Mg Capsule, 134 MG PO DAILY, CAP 04/01/19 Sevelamer Carbonate* (Renvela*) 800 Mg Tablet, 1.6 GM PO BID, TAB 04/01/19 Amiodarone Hcl* (Amiodarone Hcl*) 200 Mg Tablet, 200 MG PO DAILY, #30 TAB TAKE Q TUES,THURS,SAT WITH DIALYSIS 04/01/19 Montelukast Sodium* (Montelukast Sodium*) 10 Mg Tablet, 10 MG PO QHS, #30 TAB 04/01/19 [Nephro-Elieser] No Conflict Check, 1 TAB PO DAILY 04/01/19 Sacubitril/Valsartan (Entresto 24 mg-26 mg Tablet) 1 Each Tablet, 1 EACH PO BID, TAB 04/01/19 Midodrine* (Midodrine*) 5 Mg Tablet, 5 MG PO DAILY, TAB 04/01/19 Furosemide* (Furosemide*) 40 Mg Tablet, 40 MG PO DAILY, TAB 04/01/19 Atorvastatin Calcium* (Atorvastatin Calcium*) 20 Mg Tablet, 20 MG PO QHS, #30 TA B 04/01/19 Medications Current Medications Amiodarone HCl (Cordarone) 200 mg DAILY PO Last administered on 04/17/19 08:42; Admin Dose 200 MG; Start 04/02/19 at 09:00 Aspirin (Halfprin) 81 mg DAILY PO Last administered on 04/15/19 08:29; Admin Dose 81 MG; Start 04/02/19 at 09:00 Atorvastatin Calcium (Lipitor) 20 mg QHS PO Last administered on 04/15/19 20:53; Admin Dose 20 MG; Start 04/01/19 at 21:00 Docusate Sodium (Colace) 100 mg BID PO Last administered on 04/17/19 08:42; Admin Dose 100 MG; Start 04/01/19 at 21:00 Montelukast Sodium (Singulair) 10 mg QHS PO Last administered on 04/17/19 20:16; Admin Dose 10 MG; Start 04/01/19 at 21:00 Sevelamer Carbonate (Renvela) 1.6 gm BID WITH MEALS PO Last administered on 04/17/19 17:37; Admin Dose 1.6 GM; Start 04/01/19 at 21:00 Albuterol/ Ipratropium (Duoneb) 3 ml Q2H RESP THERAPY PRN NEB SHORTNESS OF BREATH Last administered on 04/09/19 21:01; Admin Dose 3 ML; Start 04/01/19 at 21:00 Zolpidem Tartrate (Ambien) 5 mg QHS PRN PO INSOMNIA Last administered on 04/18/19 03:37; Admin Dose 5 MG; Start 04/01/19 at 21:00 IV Flush (NS 10 ml) 10 ml PRN PRN IV IV PROTOCOL; Start 04/03/19 at 17:00 Epoetin Jatinder-epbx (Retacrit (Esrd)) 10,000 unit AFTER EACH DIALYSIS SC Last administered on 04/10/19 15:55; Admin Dose 10,000 UNIT; Start 04/04/19 at 16:00 Miscellaneous Information 1 ea NOTE XX ; Start 04/05/19 at 11:30 Glucose (Glutose) 15 gm Q15M PRN PO DECREASED GLUCOSE; Start 04/05/19 at 11:30 Glucose (Glutose) 22.5 gm Q15M PRN PO DECREASED GLUCOSE; Start 04/05/19 at 11:30 Dextrose (D50w Syringe) 25 ml Q15M PRN IV DECREASED GLUCOSE Last administered on 04/11/19 11:46; Admin Dose 25 ML; Start 04/05/19 at 11:30 Dextrose (D50w Syringe) 50 ml Q15M PRN IV DECREASED GLUCOSE; Start 04/05/19 at 11:30 Glucagon (Glucagen) 1 mg Q15M PRN IM DECREASED GLUCOSE; Start 04/05/19 at 11:30 Glucose (Glutose) 15 gm Q15M PRN BUCCAL DECREASED GLUCOSE; Start 04/05/19 at 11:30 Diagnostic Test (Pha) (Accu-Chek) 1 ea 02 XX Last administered on 04/14/19at 01:31; Admin Dose 1 EA; Start 04/06/19 at 02:00 Insulin Aspart (Novolog Insulin Pen) NOVOLOG *MILD* ALGORITHM WITH MEALS BEDTIME SC Last administered on 04/17/19 17:39; Admin Dose 1 UNIT; Start 04/05/19 at 17:35 Insulin Glargine (Lantus) 20 units DAILY@2000 SC Last administered on 04/17/19 20:15; Admin Dose 20 UNITS; Start 04/06/19 at 20:00 Ondansetron HCl (Zofran Inj) 4 mg Q6H PRN IV NAUSEA AND/OR VOMITING Last administered on 04/15/19 15:45; Admin Dose 4 MG; Start 04/07/19 at 17:00 Midodrine (Proamatine) 10 mg TID@0900,1300,1700 PO Last administered on 04/17/19at 17:37; Admin Dose 10 MG; Start 04/12/19 at 09:00 Dextrose/Sodium Chloride 1,000 ml @ 50 mls/hr Q20H IV Last administered on 04/18/19at 03:52; Admin Dose 50 MLS/HR; Start 04/13/19 at 08:00 Vancomycin HCl (Vanco Iv Per Pharmacy) VANCOMYCIN PER PHARMACY PER PROTOCOL XX ; Start 04/16/19 at 14:30 Vasopressin 60 unit/Dextrose 60 ml @ 1.2 mls/hr PRN IV ; Start 04/16/19 at 20 :00 Diagnostic Test (Pha) (Accu-Chek) 1 ea Q4 XX ; Start 04/16/19 at 21:00; Status UNV Total Parenteral Nutrition 1,000 ml @ 0 mls/hr Q0M IV ; Start 04/16/19 at 20:41; Status UNV Fat Emulsion Intravenous 250 ml @ 10.4 mls/hr DAILY IV ; Start 04/17/19 at 09:00; Status UNV Alteplase, Recombinant (Cathflo (Activase)) 2 mg MAY REPEAT X1 PRN CATHETER IF CATHETER REMAINS OCCULUDED Last administered on 04/17/19at 04:06; Admin Dose 2 MG; Start 04/16/19 at 22:30 Meropenem/Sodium Chloride 50 ml @ 100 mls/hr Q24H IVPB ; Start 04/18/19 at 12:00 Norepinephrine 16 mg/Dextrose 250 ml @ 0.94 mls/hr TITRATE IV Last administered on 04/18/19at 05:14; Admin Dose 0.94 MLS/HR; Start 04/17/19 at 21:30 Assessment/Plan Hospital Course (Demo Recall) Mildly abnormal troponin secondary to sepsis renal failure etc. Sepsis bacteremia/ septic shock Pneumonia ? cholangiocarcinoma Renal failure dialysis dependent History of arrhythmia probably sick sinus syndrome versus heart block status post MRI compatible [employer] permanent pacemaker Encephalopathy Paroxysmal atrial fibrillation Recommendations: cont aspirin as long as ok with GI and no active bleeding is noted Antibiotic management as per internal medicine and consultants Continue to be hemodialysis as tolerated Unable to tolerate beta-damian due to his low blood pressure levophed as needed . so far attempts on weaning have been unsuccessful . f/u GI consultation rec Pacemaker card reviewed. pacemaker is an MRI compatible and MRI can be done . need to call [employer] rep to change the pacemaker setting right before and after the MRCP. PLEASE CONTACT [employer] rep (Rubio at [phone]) to arrange for setting change fluid management as per renal Thank you for this referral. We will continue to follow along with you JOSE D SOLOMON MD [facility] JOSE D SOLOMON MD Apr 18, 2019 07:12
--- NOTE | 2019-04-18 07:18 | CONS ---
Assessment/Plan Assessment/Plan Hospital Course (Demo Recall) 83 yo male 1. Severe sepsis. -Bacteremia with possible intra-abdominal etiology 2. Ascites. -04/14 paracentesis 3. Pneumonia. 4. Cholangiocarcinoma with carcinomatosis. -H/O hepatocellular cancer -CA 199 1000 and alpha-fetoprotein was within normal limit. This cancer cell marker are more in favor of cholangiocarcinoma rather than hepatocellular cancer. 5. Diabetes mellitus. 6. Atrial fibrillation. -paced 7. Congestive heart failure. 8. Dilated left-sided biliary system. 9. Anemia. -positive fob, low iron, tibc, %sat, high ferritin -when stable can consider EGD/colon. 10. ESRD -on HD Plan -Continue ICU supportive care -Waiting on dietary consult to start TPN -Pt needs ERCP but deemed too unstable per anesthesiology. No cardiac clearance given yet. Still requiring pressor support Pt examined and plan of care d/w Dr Schuster Consultation Date/Type/Reason Admit Date/Time Apr 01, 2019 at 17:43 Initial Consult Date 04/03/19 Requesting Provider: ADA RANGEL DO Date/Time of Note DATE: 04/18/19 TIME: 07:15 24 HR Interval Summary Free Text/Dictation Pt was agitated intermittently through night. Calm and sleeping now. Abd pain to palpitation. Pending dietary consult to start TPN. Pt is still requiring large amount of levophed support. Plan for HD today. Exam/Review of Systems Exam Vitals Vital Signs Date Temp Pulse Resp B/P (MAP) Pulse Ox O2 O2 Flow FiO2 Time Delivery Rate 04/18/19 94 21 98/46 (63) 99 06:15 04/18/19 Nasal 4.0 06:00 Cannula 04/18/19 97.2 04:00 Intake and Output 04/17/19 04/17/19 04/18/19 1515:00 23:00 07:00 IntakeIntake Total 679.93 ml 563.08 ml 485.28 ml OutputOutput Total 0 ml 0 ml 0 ml BalanceBalance 679.93 ml 563.08 ml 485.28 ml Head: normocephalic Eyes: PERRL Respiratory: diminished breath sounds Cardiovascular: other (paced, tachycardia) Gastrointestinal: ascites, tender Extremities: edema Neurological: lethargic Results Result Diagram: 04/18/19 0422 04/18/19 0435 Results 24hrs Laboratory Tests Test 04/17/19 08:35 04/17/19 12:08 04/17/19 17:36 04/17/19 20:10 Bedside Glucose 141 140 160 141 Test 04/18/19 04:22 04/18/19 04:35 White Blood Count 21.2 #H Red Blood Count 3.12 L Hemoglobin 9.2 L Hematocrit 30.4 L Mean Corpuscular Volume 97.4 Mean Corpuscular 29.5 Hemoglobin Mean Corpuscular 30.3 L Hemoglobin Concent Red Cell Distribution 17.5 H Width Platelet Count 287 Mean Platelet Volume 10.6 H Immature Granulocytes % 1.200 H Neutrophils % 81.5 H Lymphocytes % 11.0 L Monocytes % 5.6 Eosinophils % 0.4 Basophils % 0.3 Nucleated Red Blood 0.3 H Cells % Immature Granulocytes # 0.250 H Neutrophils # 17.3 H Lymphocytes # 2.3 Monocytes # 1.2 H Eosinophils # 0.1 Basophils # 0.1 Nucleated Red Blood 0.1 H Cells # Sodium Level 141 Potassium Level 4.2 Chloride Level 110 Carbon Dioxide Level 22 Anion Gap 9 Blood Urea Nitrogen 29 H Creatinine 4.36 H Est Glomerular Filtrat Rate mL/min Glucose Level 142 Calcium Level 7.9 L Phosphorus Level 4.7 Magnesium Level 2.1 Medications Medication Current Medications Amiodarone HCl (Cordarone) 200 mg DAILY PO Last administered on 04/17/19 08:42; Admin Dose 200 MG; Start 04/02/19 at 09:00 Aspirin (Halfprin) 81 mg DAILY PO Last administered on 04/15/19 08:29; Admin Dose 81 MG; Start 04/02/19 at 09:00 Atorvastatin Calcium (Lipitor) 20 mg QHS PO Last administered on 04/15/19 20:53; Admin Dose 20 MG; Start 04/01/19 at 21:00 Docusate Sodium (Colace) 100 mg BID PO Last administered on 04/17/19 08:42; Admin Dose 100 MG; Start 04/01/19 at 21:00 Montelukast Sodium (Singulair) 10 mg QHS PO Last administered on 04/17/19 20:16; Admin Dose 10 MG; Start 04/01/19 at 21:00 Sevelamer Carbonate (Renvela) 1.6 gm BID WITH MEALS PO Last administered on 04/17/19 17:37; Admin Dose 1.6 GM; Start 04/01/19 at 21:00 Albuterol/ Ipratropium (Duoneb) 3 ml Q2H RESP THERAPY PRN NEB SHORTNESS OF BREATH Last administered on 04/09/19 21:01; Admin Dose 3 ML; Start 04/01/19 at 21:00 Zolpidem Tartrate (Ambien) 5 mg QHS PRN PO INSOMNIA Last administered on 04/18/19 03:37; Admin Dose 5 MG; Start 04/01/19 at 21:00 IV Flush (NS 10 ml) 10 ml PRN PRN IV IV PROTOCOL; Start 04/03/19 at 17:00 Epoetin Jatinder-epbx (Retacrit (Esrd)) 10,000 unit AFTER EACH DIALYSIS SC Last administered on 04/10/19 15:55; Admin Dose 10,000 UNIT; Start 04/04/19 at 16:00 Miscellaneous Information 1 ea NOTE XX ; Start 04/05/19 at 11:30 Glucose (Glutose) 15 gm Q15M PRN PO DECREASED GLUCOSE; Start 04/05/19 at 11:30 Glucose (Glutose) 22.5 gm Q15M PRN PO DECREASED GLUCOSE; Start 04/05/19 at 11:30 Dextrose (D50w Syringe) 25 ml Q15M PRN IV DECREASED GLUCOSE Last administered on 04/11/19 11:46; Admin Dose 25 ML; Start 04/05/19 at 11:30 Dextrose (D50w Syringe) 50 ml Q15M PRN IV DECREASED GLUCOSE; Start 04/05/19 at 11:30 Glucagon (Glucagen) 1 mg Q15M PRN IM DECREASED GLUCOSE; Start 04/05/19 at 11:30 Glucose (Glutose) 15 gm Q15M PRN BUCCAL DECREASED GLUCOSE; Start 04/05/19 at 11:30 Diagnostic Test (Pha) (Accu-Chek) 1 ea 02 XX Last administered on 04/14/19at 01:31; Admin Dose 1 EA; Start 04/06/19 at 02:00 Insulin Aspart (Novolog Insulin Pen) NOVOLOG *MILD* ALGORITHM WITH MEALS BEDTIME SC Last administered on 04/17/19 17:39; Admin Dose 1 UNIT; Start at 17:35 Insulin Glargine (Lantus) 20 units DAILY@2000 SC Last administered on 04/17/19 20:15; Admin Dose 20 UNITS; Start 04/06/19 at 20:00 Ondansetron HCl (Zofran Inj) 4 mg Q6H PRN IV NAUSEA AND/OR VOMITING Last administered on 04/15/19at 15:45; Admin Dose 4 MG; Start 04/07/19 at 17:00 Midodrine (Proamatine) 10 mg TID@0900,1300,1700 PO Last administered on 04/17/19at 17:37; Admin Dose 10 MG; Start 04/12/19 at 09:00 Dextrose/Sodium Chloride 1,000 ml @ 50 mls/hr Q20H IV Last administered on 04/18/19at 03:52; Admin Dose 50 MLS/HR; Start 04/13/19 at 08:00 Vancomycin HCl (Vanco Iv Per Pharmacy) VANCOMYCIN PER PHARMACY PER PROTOCOL XX ; Start 04/16/19 at 14:30 Vasopressin 60 unit/Dextrose 60 ml @ 1.2 mls/hr PRN IV ; Start 04/16/19 at 20:00 Diagnostic Test (Pha) (Accu-Chek) 1 ea Q4 XX ; Start 04/16/19 at 21:00; Status UNV Total Parenteral Nutrition 1,000 ml @ 0 mls/hr Q0M IV ; Start 04/16/19 at 20:41; Status UNV Fat Emulsion Intravenous 250 ml @ 10.4 mls/hr DAILY IV ; Start 04/17/19 at 09:00; Status UNV Alteplase, Recombinant (Cathflo (Activase)) 2 mg MAY REPEAT X1 PRN CATHETER IF CATHETER REMAINS OCCULUDED Last administered on 04/17/19at 04:06; Admin Dose 2 MG; Start 04/16/19 at 22:30 Meropenem/Sodium Chloride 50 ml @ 100 mls/hr Q24H IVPB ; Start 04/18/19 at 12:00 Norepinephrine 16 mg/Dextrose 250 ml @ 0.94 mls/hr TITRATE IV Last administered on 04/18/19at 05:14; Admin Dose 0.94 MLS/HR; Start 04/17/19 at 21:30 ARIANA GUERRA Apr 18, 2019 07:18
[2019-04-18] MEDS: INSULIN ASPART [NOVOLOG] 3 ML PEN SC SCH ×4 (07:35→21:06)
[2019-04-18] MEDS: SEVELAMER CARBONATE 0.8 GM PKT PO SCH ×2 (07:35→17:14)
--- NOTE | 2019-04-18 08:44 | PN ---
DATE: 04/18/2019 SUBJECTIVE: The patient remains critically ill on pressor support. No other acute events noted. No hemoptysis, hematemesis, hematochezia. OBJECTIVE: VITAL SIGNS: Blood pressure is 98/46, respiration 21, pulse 94, temperature 98.6. HEENT: Head is normocephalic. NECK: Supple. HEART: Regular rate. LUNGS: Show diminished breath sounds at the base. ABDOMEN: Soft, nontender to palpation without rebound or guarding. EXTREMITIES: Negative for clubbing, cyanosis. Positive edema. DERMATOLOGIC: No rashes. MUSCULOSKELETAL: No joint effusions. NEUROLOGIC: No change in exam. MEDICATIONS: Reviewed. IMAGING STUDIES: Cultures have been reviewed. ASSESSMENT AND PLAN: 1. Septic shock. Etiology of gram-negative bacteremia. Underlying source is felt to be intra-abdom inal. The patient remains on pressor support. Continue to wean off as tolerated. Continue antibiot ic therapy and IV fluids. 2. 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 The patient has been seen by GI and oncology: Currently unstable for ERCP. Continue to monitor. 3. Anemia. Monitor H and H levels. Give Epogen as needed. 4. Mineral bone disorder. Monitor calcium and phosphorus levels. 5. End-stage renal disease. Plan for hemodialysis today. 6. Volume overload. We will attempt ultrafiltration dialysis if the patient is hemodynamically is s table. 7. Diabetes. Continue current insulin regimen. 8. Nutrition. The patient is currently n.p.o., pending TPN recommendations for dietary. 9. Arrhythmia with history of pacemaker. 10. Acute encephalopathy. Etiology is toxic metabolic. 11. Lower extremity wounds. Continue wound care. 12. Pleural effusion, status post thoracentesis. Please note I spent over 30 minutes of critical care time with this patient. Dictated By: ADA RANGEL DO NR/NTS Conf#: [id number] DID#: [id number] CC: DYLAN GREENE MD;*EndCC*
[2019-04-18] MEDS: ASPIRIN (EC) 81 MG TAB PO SCH (09:43)
[2019-04-18] MEDS: AMIODARONE 200 MG TAB PO SCH (09:44)
[2019-04-18] MEDS: MIDODRINE 5 MG TAB PO SCH ×3 (09:44→16:05)
[2019-04-18] MEDS: DOCUSATE SODIUM 100 MG CAP PO SCH ×2 (09:44→20:45)
[2019-04-18] MEDS: BALSAM PERU/CASTOR OIL 60 GM TUBE TOP SCH ×2 (09:45→20:46)
--- NOTE | 2019-04-18 11:16 | CONS ---
Consult Date/Type/Reason Admit Date/Time Apr 01, 2019 at 17:43 Initial Consult Date 04/03/19 Type of Consult Pulmonary Requesting Provider: ADA RANGEL DO Date/Time of Note DATE: 04/18/19 TIME: 11:14 Subjective patient still remains somnolent on vasopressor support. Objective Vital Signs Date Temp Pulse Resp B/P (MAP) Pulse Ox O2 O2 Flow FiO2 Time Delivery Rate 04/18/19 80 08:00 04/18/19 21 98/46 (63) 99 06:15 04/18/19 Nasal 4.0 06:00 Cannula 04/18/19 97.2 04:00 Intake and Output 04/17/19 04/17/19 04/18/19 1515:00 23:00 07:00 IntakeIntake Total 679.93 ml 563.08 ml 485.28 ml OutputOutput Total 0 ml 0 ml 0 ml BalanceBalance 679.93 ml 563.08 ml 485.28 ml Exam GENERAL: Elderly appearing gentleman on nasal cannula O2. VITAL SIGNS: per chart NECK: Supple. No JVD or lymphadenopathy. CARDIAC EXAM: S1, S2. No added sounds or murmurs. CHEST: clear bilaterally, No added sounds, rales or wheezes ABDOMEN: Soft, nontender. No guarding or rebound. EXTREMITIES: No cyanosis, clubbing or edema. NEUROLOGIC: Generalized weakness. No focal deficits Vent Setting Fraction of Inspired Oxygen pe: 28 Results/Medications Result Diagram: 04/18/19 0422 04/18/19 0435 Results 24 hrs Laboratory Tests Test 04/17/19 12:08 04/17/19 17:36 04/17/19 20:10 04/18/19 04:22 Bedside Glucose 140 160 141 White Blood Count 21.2 #H Red Blood Count 3.12 L Hemoglobin 9.2 L Hematocrit 30.4 L Mean Corpuscular Volume 97.4 Mean Corpuscular 29.5 Hemoglobin Mean Corpuscular 30.3 L Hemoglobin Concent Red Cell Distribution 17.5 H Width Platelet Count 287 Mean Platelet Volume 10.6 H Immature Granulocytes % 1.200 H Neutrophils % 81.5 H Lymphocytes % 11.0 L Monocytes % 5.6 Eosinophils % 0.4 Basophils % 0.3 Nucleated Red Blood 0.3 H Cells % Immature Granulocytes # 0.250 H Neutrophils # 17.3 H Lymphocytes # 2.3 Monocytes # 1.2 H Eosinophils # 0.1 Basophils # 0.1 Nucleated Red Blood 0.1 H Cells # Test 04/18/19 04:35 04/18/19 08:02 04/18/19 08:10 Sodium Level 141 Potassium Level 4.2 Chloride Level 110 Carbon Dioxide Level 22 Anion Gap 9 Blood Urea Nitrogen 29 H Creatinine 4.36 H Est Glomerular Filtrat Rate mL/min Glucose Level 142 Calcium Level 7.9 L Phosphorus Level 4.7 Magnesium Level 2.1 Bedside Glucose 132 Lactic Acid Level 1.2 Procalcitonin 5.51 H Medications Current Medications Amiodarone HCl (Cordarone) 200 mg DAILY PO Last administered on 04/18/19 09:44; Admin Dose 200 MG; Start 04/02/19 at 09:00 Aspirin (Halfprin) 81 mg DAILY PO Last administered on 04/18/19 09:43; Admin Dose 81 MG; Start 04/02/19 at 09:00 Atorvastatin Calcium (Lipitor) 20 mg QHS PO Last administered on 04/15/19 20:53; Admin Dose 20 MG; Start 04/01/19 at 21:00 Docusate Sodium (Colace) 100 mg BID PO Last administered on 04/18/19 09:44; Admin Dose 100 MG; Start 04/01/19 at 21:00 Montelukast Sodium (Singulair) 10 mg QHS PO Last administered on 04/17/19 20:16; Admin Dose 10 MG; Start 04/01/19 at 21:00 Sevelamer Carbonate (Renvela) 1.6 gm BID WITH MEALS PO Last administered on 04/17/19 17:37; Admin Dose 1.6 GM; Start 04/01/19 at 21:00 Albuterol/ Ipratropium (Duoneb) 3 ml Q2H RESP THERAPY PRN NEB SHORTNESS OF BREATH Last administered on 04/09/19 21:01; Admin Dose 3 ML; Start 04/01/19 at 21:00 Zolpidem Tartrate (Ambien) 5 mg QHS PRN PO INSOMNIA Last administered on 04/18/19 03:37; Admin Dose 5 MG; Start 04/01/19 at 21:00 IV Flush (NS 10 ml) 10 ml PRN PRN IV IV PROTOCOL; Start 04/03/19 at 17:00 Epoetin Jatinder-epbx (Retacrit (Esrd)) 10,000 unit AFTER EACH DIALYSIS SC Last administered on 04/10/19at 15:55; Admin Dose 10,000 UNIT; Start 04/04/19 at 16:00 Miscellaneous Information 1 ea NOTE XX ; Start 04/05/19 at 11:30 Glucose (Glutose) 15 gm Q15M PRN PO DECREASED GLUCOSE; Start 04/05/19 at 11:30 Glucose (Glutose) 22.5 gm Q15M PRN PO DECREASED GLUCOSE; Start 04/05/19 at 11:30 Dextrose (D50w Syringe) 25 ml Q15M PRN IV DECREASED GLUCOSE Last administered on 04/11/19at 11:46; Admin Dose 25 ML; Start 04/05/19 at 11:30 Dextrose (D50w Syringe) 50 ml Q15M PRN IV DECREASED GLUCOSE; Start 04/05/19 at 11:30 Glucagon (Glucagen) 1 mg Q15M PRN IM DECREASED GLUCOSE; Start 04/05/19 at 11:30 Glucose (Glutose) 15 gm Q15M PRN BUCCAL DECREASED GLUCOSE; Start 04/05/19 at 11:30 Diagnostic Test (Pha) (Accu-Chek) 1 ea 02 XX Last administered on 04/14/19at 01:31; Admin Dose 1 EA; Start 04/06/19 at 02:00 Insulin Aspart (Novolog Insulin Pen) NOVOLOG *MILD* ALGORITHM WITH MEALS BEDTIME SC Last administered on 04/17/19at 17:39; Admin Dose 1 UNIT; Start 04/05/19 at 17:35 Insulin Glargine (Lantus) 20 units DAILY@2000 SC Last administered on 04/17/19at 20:15; Admin Dose 20 UNITS; Start 04/06/19 at 20:00 Ondansetron HCl (Zofran Inj) 4 mg Q6H PRN IV NAUSEA AND/OR VOMITING Last administered on 04/15/19at 15:45; Admin Dose 4 MG; Start 04/07/19 at 17:00 Midodrine (Proamatine) 10 mg TID@0900,1300,1700 PO Last administered on 04/18/19 09:44; Admin Dose 10 MG; Start 04/12/19 at 09:00 Dextrose/Sodium Chloride 1,000 ml @ 50 mls/hr Q20H IV Last administered on 04/18/19at 03:52; Admin Dose 50 MLS/HR; Start 04/13/19 at 08:00 Vancomycin HCl (Vanco Iv Per Pharmacy) VANCOMYCIN PER PHARMACY PER PROTOCOL XX ; Start 04/16/19 at 14:30 Vasopressin 60 unit/Dextrose 60 ml @ 1.2 mls/hr PRN IV ; Start 04/16/19 at 20:00 Diagnostic Test (Pha) (Accu-Chek) 1 ea Q4 XX ; Start 04/16/19 at 21:00; Status UNV Total Parenteral Nutrition 1,000 ml @ 0 mls/hr Q0M IV ; Start 04/16/19 at 20:41; Status UNV Fat Emulsion Intravenous 250 ml @ 10.4 mls/hr DAILY IV ; Start 04/17/19 at 09: 00; Status UNV Alteplase, Recombinant (Cathflo (Activase)) 2 mg MAY REPEAT X1 PRN CATHETER IF CATHETER REMAINS OCCULUDED Last administered on 04/17/19at 04:06; Admin Dose 2 MG; Start 04/16/19 at 22:30 Meropenem/Sodium Chloride 50 ml @ 100 mls/hr Q24H IVPB ; Start 04/18/19 at 12:00 Norepinephrine 16 mg/Dextrose 250 ml @ 0.94 mls/hr TITRATE IV Last administered on 04/18/19at 05:14; Admin Dose 0.94 MLS/HR; Start 04/17/19 at 21:30 Assessment/Plan Hospital Course (Demo Recall) Assessment 1. Persistent septic shock requiring vasopressor support blood cultures positi ve for Bacteroides ongoing vasopressor requirement 2. History of end-stage renal failure on hemodialysis 3. History of cholangiocarcinoma. 4. History of arrhythmia with pacemaker 5. Diabetes mellitus 6. Dysphagia remains risk of aspiration. 7. Encephalopathy toxic metabolic, appears to be slowly improving 8. Hypoxemic respiratory failure with pleural effusion status post thoracentesis. Plan 1. Continue supplemental O2 as needed 2. Hemodialysis as tolerated. 3. Continue antibiotics per ID 4. Thoracentesis left lung. Pleural fluid studies now pending. 5. Titrate vasopressors to keep map greater than 65, no evidence of adrenal insufficiency with normal cortisol level noted. Still remains vasopressor dependent for several days. Consider midodrine. 6. Speech therapy recommendations aspiration precautions. Critical care time 40 minutes Consider hospice extremely poor prognosis. TRAE TRAVIS MD, [facility] Apr 18, 2019 11:16
[2019-04-18] MEDS: MEROPENEM 500MG/50 ML (PMX) 50 ML IVPB SCH (12:18)
--- NOTE | 2019-04-18 13:12 | CONS ---
Assessment/Plan Assessment/Plan Hospital Course (Demo Recall) No acute changes, patient remains on Levophed drip Antimicrobials: Vancomycin, meropenem Indwelling's: PICC line and upper extremity fistula Microbiology: Blood culture on admission grew Bacteroides fragilis, repeat cx neg Physical examination: This is an obese well-developed chronically ill elderly [place] man who is in no distress. Head atraumatic normocephalic neck is supple chest rise symmetrical breath sounds diminished bases. Heart: S1-S2. Tachycardic abdomen soft obese bowel sounds hypoactive extremities without cyanosis, trace edema Assessment: 1. Severe sepsis with shock 2. Bacteremia ? source==>likely intraabdominal 3. End-stage renal disease, hemodialysis dependent 4. Recently diagnosed hepatocellular carcinoma, poss obstructing mass and peritoneal carcinomatosis 5. Coronary artery disease status post permanent pacemaker 6. Diabetes 7. Atrial fibrillation 8. DNR Plan: Remains unchanged, continue present care, prognosis guarded Consultation Date/Type/Reason Admit Date/Time Apr 01, 2019 at 17:43 Initial Consult Date 04/03/19 Type of Consult id Requesting Provider: ADA RANGEL DO Date/Time of Note DATE: 04/18/19 TIME: 13:11 Exam/Review of Systems Exam Vitals Vital Signs Date Temp Pulse Resp B/P (MAP) Pulse Ox O2 O2 Flow FiO2 Time Delivery Rate 04/18/19 89 12:00 04/18/19 21 98/46 (63) 99 06:15 04/18/19 Nasal 4.0 06:00 Cannula 04/18/19 97.2 04:00 Intake and Output 04/17/19 04/17/19 04/18/19 1515:00 23:00 07:00 IntakeIntake Total 679.93 ml 563.08 ml 485.28 ml OutputOutput Total 0 ml 0 ml 0 ml BalanceBalance 679.93 ml 563.08 ml 485.28 ml Results Result Diagram: 04/18/19 0422 04/18/19 0435 Results 24hrs Laboratory Tests Test 04/17/19 17:36 04/17/19 20:10 04/18/19 04:22 04/18/19 04:35 Bedside Glucose 160 141 White Blood Count 21.2 #H Red Blood Count 3.12 L Hemoglobin 9.2 L Hematocrit 30.4 L Mean Corpuscular Volume 97.4 Mean Corpuscular 29.5 Hemoglobin Mean Corpuscular 30.3 L Hemoglobin Concent Red Cell Distribution 17.5 H Width Platelet Count 287 Mean Platelet Volume 10.6 H Immature Granulocytes % 1.200 H Neutrophils % 81.5 H Lymphocytes % 11.0 L Monocytes % 5.6 Eosinophils % 0.4 Basophils % 0.3 Nucleated Red Blood 0.3 H Cells % Immature Granulocytes # 0.250 H Neutrophils # 17.3 H Lymphocytes # 2.3 Monocytes # 1.2 H Eosinophils # 0.1 Basophils # 0.1 Nucleated Red Blood 0.1 H Cells # Sodium Level 141 Potassium Level 4.2 Chloride Level 110 Carbon Dioxide Level 22 Anion Gap 9 Blood Urea Nitrogen 29 H Creatinine 4.36 H Est Glomerular Filtrat Rate mL/min Glucose Level 142 Calcium Level 7.9 L Phosphorus Level 4.7 Magnesium Level 2.1 Test 04/18/19 08:02 04/18/19 08:10 04/18/19 12:17 Bedside Glucose 132 124 Lactic Acid Level 1.2 Procalcitonin 5.51 H Medications Medication Current Medications Amiodarone HCl (Cordarone) 200 mg DAILY PO Last administered on 04/18/19 09:44; Admin Dose 200 MG; Start 04/02/19 at 09:00 Aspirin (Halfprin) 81 mg DAILY PO Last administered on 04/18/19 09:43; Admin Dose 81 MG; Start 04/02/19 at 09:00 Atorvastatin Calcium (Lipitor) 20 mg QHS PO Last administered on 04/15/19 20:53; Admin Dose 20 MG; Start 04/01/19 at 21:00 Docusate Sodium (Colace) 100 mg BID PO Last administered on 04/18/19 09:44; Admin Dose 100 MG; Start 04/01/19 at 21:00 Montelukast Sodium (Singulair) 10 mg QHS PO Last administered on 04/17/19 20:16; Admin Dose 10 MG; Start 04/01/19 at 21:00 Sevelamer Carbonate (Renvela) 1.6 gm BID WITH MEALS PO Last administered on 04/17/19 17:37; Admin Dose 1.6 GM; Start 04/01/19 at 21:00 Albuterol/ Ipratropium (Duoneb) 3 ml Q2H RESP THERAPY PRN NEB SHORTNESS OF DANIEL ATH Last administered on 04/09/19at 21:01; Admin Dose 3 ML; Start 04/01/19 at 21:00 Zolpidem Tartrate (Ambien) 5 mg QHS PRN PO INSOMNIA Last administered on 04/18/19at 03:37; Admin Dose 5 MG; Start 04/01/19 at 21:00 IV Flush (NS 10 ml) 10 ml PRN PRN IV IV PROTOCOL; Start 04/03/19 at 17:00 Epoetin Jatinder-epbx (Retacrit (Esrd)) 10,000 unit AFTER EACH DIALYSIS SC Last administered on 04/10/19at 15:55; Admin Dose 10,000 UNIT; Start 04/04/19 at 16:00 Miscellaneous Information 1 ea NOTE XX ; Start 04/05/19 at 11:30 Glucose (Glutose) 15 gm Q15M PRN PO DECREASED GLUCOSE; Start 04/05/19 at 11:30 Glucose (Glutose) 22.5 gm Q15M PRN PO DECREASED GLUCOSE; Start 04/05/19 at 11:30 Dextrose (D50w Syringe) 25 ml Q15M PRN IV DECREASED GLUCOSE Last administered on 04/11/19at 11:46; Admin Dose 25 ML; Start 04/05/19 at 11:30 Dextrose (D50w Syringe) 50 ml Q15M PRN IV DECREASED GLUCOSE; Start 04/05/19 at 11:30 Glucagon (Glucagen) 1 mg Q15M PRN IM DECREASED GLUCOSE; Start 04/05/19 at 11:30 Glucose (Glutose) 15 gm Q15M PRN BUCCAL DECREASED GLUCOSE; Start 04/05/19 at 11:30 Diagnostic Test (Pha) (Accu-Chek) 1 ea 02 XX Last administered on 04/14/19at 01:31; Admin Dose 1 EA; Start 04/06/19 at 02:00 Insulin Aspart (Novolog Insulin Pen) NOVOLOG *MILD* ALGORITHM WITH MEALS BEDTIME SC Last administered on 04/17/19at 17:39; Admin Dose 1 UNIT; Start 04/05/19 at 17:35 Insulin Glargine (Lantus) 20 units DAILY@2000 SC Last administered on 04/17/19at 20:15; Admin Dose 20 UNITS; Start 04/06/19 at 20:00 Ondansetron HCl (Zofran Inj) 4 mg Q6H PRN IV NAUSEA AND/OR VOMITING Last administered on 04/15/19at 15:45; Admin Dose 4 MG; Start 04/07/19 at 17:00 Midodrine (Proamatine) 10 mg TID@0900,1300,1700 PO Last administered on 04/18/19at 09:44; Admin Dose 10 MG; Start 04/12/19 at 09:00 Dextrose/Sodium Chloride 1,000 ml @ 50 mls/hr Q20H IV Last administered on 04/18/19at 12:18; Admin Dose 50 MLS/HR; Start 04/13/19 at 08:00 Vancomycin HCl (Vanco Iv Per Pharmacy) VANCOMYCIN PER PHARMACY PER PROTOCOL XX ; Start 04/16/19 at 14:30 Vasopressin 60 unit/Dextrose 60 ml @ 1.2 mls/hr PRN IV ; Start 04/16/19 at 20:00 Diagnostic Test (Pha) (Accu-Chek) 1 ea Q4 XX ; Start 04/16/19 at 21:00; Status UNV Total Parenteral Nutrition 1,000 ml @ 0 mls/hr Q0M IV ; Start 04/16/19 at 20:41; Status UNV Fat Emulsion Intravenous 250 ml @ 10.4 mls/hr DAILY IV ; Start 04/17/19 at 09:00; Status UNV Alteplase, Recombinant (Cathflo (Activase)) 2 mg MAY REPEAT X1 PRN CATHETER IF CATHETER REMAINS OCCULUDED Last administered on 04/17/19at 04:06; Admin Dose 2 MG; Start 04/16/19 at 22:30 Meropenem/Sodium Chloride 50 ml @ 100 mls/hr Q24H IVPB Last administered on 04/18/19at 12:18; Admin Dose 100 MLS/HR; Start 04/18/19 at 12:00 Norepinephrine 16 mg/Dextrose 250 ml @ 0.94 mls/hr TITRATE IV Last administered on 04/18/19at 05:14; Admin Dose 0.94 MLS/HR; Start 04/17/19 at 21:30 Miscellaneous Information (*Rx Drug Level Order Reminder*) RANDOM VANCO LEVEL ... 0500 ONCE XX ; Start 04/19/19 at 05:00; Stop 04/19/19 at 05:01 JOAO RAHMAN NP Apr 18, 2019 13:12
[2019-04-18] MEDS: TPN 1,000 ML IV SCH (17:54)
[2019-04-18] MEDS: MONTELUKAST 10 MG TAB PO SCH (20:45)
[2019-04-18] MEDS: ATORVASTATIN 20 MG TAB PO SCH (20:45)
[2019-04-18] MEDS: INSULIN GLARGINE [LANTus] (100 UNITS/ML) SYG SC SCH (21:07)
[2019-04-19] VITALS (93 sets, daily range): BP systolic 71–154; BP diastolic 22–114; PULSE 69–111; RESP 14–35
[2019-04-19] MEDS: ACCU-CHEK XX SCH ×7 (01:00→19:59)
[2019-04-19] MEDS: INSULIN ASPART [NOVOLOG] 3 ML PEN SC SCH ×6 (01:14→20:10)
[2019-04-19] MEDS: EPOETIN ALFA-EPBX (ESRD) 10,000 UNIT/ML VIAL SC SCH (01:19)
[2019-04-19] MEDS: SEVELAMER CARBONATE 0.8 GM PKT PO SCH ×2 (07:35→16:48)
--- NOTE | 2019-04-19 07:53 | CONS ---
Consult Date/Type/Reason Admit Date/Time Apr 01, 2019 at 17:43 Initial Consult Date 04/03/19 Type of Consultation: cv Requesting Provider: ADA RANGEL DO Date/Time of Note DATE: 04/19/19 TIME: 07:51 Subjective Interventional cardiology follow-up progress note Subjective: Discussed with the staff. Telemetry was reviewed. Patient has remained in PACED rhythm mostly Patient remains in ICU and still hypotensive and on levophed drip No report of any chest pain or pressure he denies PND orthopnea to me Objective: General: no acute distress HEENT: NC/AT. pupils are equal. round. NECK: no stridor. CV: RRR. systolic murmur; no gallop or rubs. PULM: no wheezing or rhonchi. GI: SOFT, NT, ND, no rebound or guarding Extremity: + B/L LE edema. no clubbing. neuro: awake Psych: calm rectal: deferred EKG shows ventricular paced rhythm LE U/S arterial study: Monophasic waveforms in the bilateral dorsalis pedis arteries, possibly indic ating arterial inflow disease into the bilateral dorsalis pedis arteries. Chest x-ray done 04/15 Increased CHF and/or volume overload. CT 1. Again noted is severe dilatation of left intrahepatic biliary ducts. No gross evidence of hepatic mass is seen, though sensitivity is markedly limited without IV contrast. Findings remain concerning for obstructive mass in the central left hepatic lobe, as described in the prior CT report. 2. Findings compatible with peritoneal carcinomatosis. Moderate ascites, grossly stable. 3. Stable mild cardiomegaly. Coronary arterial and aortoiliac atherosclerotic calcifications. 4. Mild to moderate bilateral pleural effusions, grossly stable. Bibasilar ate lectasis. 5. Cholelithiasis, without evidence for cholecystitis. 6. Chronic bilateral renal cortical thinning and atrophy, unchanged. Objective Vitals Vital Signs Date Temp Pulse Resp B/P (MAP) Pulse Ox O2 O2 Flow FiO2 Time Delivery Rate 04/19/19 102 22 117/52 98 Nasal 4.0 06:00 (73) Cannula 04/19/19 98.1 04:00 Intake and Output 04/18/19 04/18/19 04/19/19 1515:00 23:00 07:00 IntakeIntake Total 588.72 ml 842.15 ml 901.22 ml OutputOutput Total 4200 ml 0 ml BalanceBalance 588.72 ml -3357.85 ml 901.22 ml Results/Medications Result Diagram: 04/19/19 0414 04/19/19 0414 Results 24 hrs Laboratory Tests Test 04/18/19 08:02 04/18/19 08:10 04/18/19 12:17 04/18/19 17:38 Bedside Glucose 132 124 108 Lactic Acid Level 1.2 Procalcitonin 5.51 H Test 04/18/19 20:39 04/19/19 01:09 04/19/19 04:14 04/19/19 04:17 Bedside Glucose 152 182 158 White Blood Count 17.0 H Red Blood Count 3.06 L Hemoglobin 9.0 L Hematocrit 29.7 L Mean Corpuscular Volume 97.1 Mean Corpuscular 29.4 Hemoglobin Mean Corpuscular 30.3 L Hemoglobin Concent Red Cell Distribution 18.1 H Width Platelet Count 200 # Mean Platelet Volume 11.6 H Immature Granulocytes % 1.100 H Neutrophils % 75.6 Lymphocytes % 15.1 Monocytes % 7.4 Eosinophils % 0.4 Basophils % 0.4 Nucleated Red Blood 0.6 H Cells % Immature Granulocytes # 0.180 H Neutrophils # 12.9 H Lymphocytes # 2.6 Monocytes # 1.3 H Eosinophils # 0.1 Basophils # 0.1 Nucleated Red Blood 0.1 H Cells # Sodium Level 139 Potassium Level 3.8 Chloride Level 105 Carbon Dioxide Level 26 Anion Gap 8 Blood Urea Nitrogen 24 H Creatinine 3.46 H Est Glomerular Filtrat Rate mL/min Glucose Level 177 Calcium Level 7.7 L Phosphorus Level 3.4 Magnesium Level 2.0 Total Bilirubin 0.7 Direct Bilirubin 0.20 Indirect Bilirubin 0.5 Aspartate Amino 34 Transf (AST/SGOT) Alanine 23 Aminotransferase (ALT/SG PT) Alkaline Phosphatase 127 H Total Protein 5.0 L Albumin 2.1 L Globulin 2.90 Albumin/Globulin Ratio 0.72 Test 04/19/19 05:00 Random Vancomycin Level 14.8 Home Meds Reported Medications Docusate Sodium* (Docusate Sodium*) 100 Mg Capsule, 100 MG PO BID, #60 CAP 04/01/19 Metoprolol Succinate* (Toprol XL*) 25 Mg Tab.sr.24h, 25 MG PO DAILY, #30 TAB 04/01/19 Aspirin* (Aspirin* EC) 81 Mg Tablet.dr, 81 MG PO DAILY, TAB 04/01/19 Fenofibrate, Micronized (Fenofibrate) 134 Mg Capsule, 134 MG PO DAILY, CAP 04/01/19 Sevelamer Carbonate* (Renvela*) 800 Mg Tablet, 1.6 GM PO BID, TAB 04/01/19 Amiodarone Hcl* (Amiodarone Hcl*) 200 Mg Tablet, 200 MG PO DAILY, #30 TAB TAKE Q TUES,THURS,SAT WITH DIALYSIS 04/01/19 Montelukast Sodium* (Montelukast Sodium*) 10 Mg Tablet, 10 MG PO QHS, #30 TAB 04/01/19 [Nephro-Elieser] No Conflict Check, 1 TAB PO DAILY 04/01/19 Sacubitril/Valsartan (Entresto 24 mg-26 mg Tablet) 1 Each Tablet, 1 EACH PO BID, TAB 04/01/19 Midodrine* (Midodrine*) 5 Mg Tablet, 5 MG PO DAILY, TAB 04/01/19 Furosemide* (Furosemide*) 40 Mg Tablet, 40 MG PO DAILY, TAB 04/01/19 Atorvastatin Calcium* (Atorvastatin Calcium*) 20 Mg Tablet, 20 MG PO QHS, #30 TAB 04/01/19 Medications Current Medications Amiodarone HCl (Cordarone) 200 mg DAILY PO Last administered on 04/18/19 09:44; Admin Dose 200 MG; Start 04/02/19 at 09:00 Aspirin (Halfprin) 81 mg DAILY PO Last administered on 04/18/19 09:43; Admin Dose 81 MG; Start 04/02/19 at 09:00 Atorvastatin Calcium (Lipitor) 20 mg QHS PO Last administered on 04/15/19at 20:53; Admin Dose 20 MG; Start 04/01/19 at 21:00 Docusate Sodium (Colace) 100 mg BID PO Last administered on 04/18/19 09:44; Admin Dose 100 MG; Start 04/01/19 at 21:00 Montelukast Sodium (Singulair) 10 mg QHS PO Last administered on 04/17/19at 20:16; Admin Dose 10 MG; Start 04/01/19 at 21:00 Sevelamer Carbonate (Renvela) 1.6 gm BID WITH MEALS PO Last administered on 04/17/19 17:37; Admin Dose 1.6 GM; Start 04/01/19 at 21:00 Albuterol/ Ipratropium (Duoneb) 3 ml Q2H RESP THERAPY PRN NEB SHORTNESS OF BREATH Last administered on 04/09/19 21:01; Admin Dose 3 ML; Start 04/01/19 at 21:00 Zolpidem Tartrate (Ambien) 5 mg QHS PRN PO INSOMNIA Last administered on 04/18/19 03:37; Admin Dose 5 MG; Start 04/01/19 at 21:00 IV Flush (NS 10 ml) 10 ml PRN PRN IV IV PROTOCOL; Start 04/03/19 at 17:00 Epoetin Jatinder-epbx (Retacrit (Esrd)) 10,000 unit AFTER EACH DIALYSIS SC Last administered on 04/19/19 01:19; Admin Dose 10,000 UNIT; Start 04/04/19 at 16:00 Miscellaneous Information 1 ea NOTE XX ; Start 04/05/19 at 11:30 Glucose (Glutose) 15 gm Q15M PRN PO DECREASED GLUCOSE; Start 04/05/19 at 11:30 Glucose (Glutose) 22.5 gm Q15M PRN PO DECREASED GLUCOSE; Start 04/05/19 at 11:30 Dextrose (D50w Syringe) 25 ml Q15M PRN IV DECREASED GLUCOSE Last administered on 04/11/19 11:46; Admin Dose 25 ML; Start 04/05/19 at 11:30 Dextrose (D50w Syringe) 50 ml Q15M PRN IV DECREASED GLUCOSE; Start 04/05/19 at 11:30 Glucagon (Glucagen) 1 mg Q15M PRN IM DECREASED GLUCOSE; Start 04/05/19 at 11:30 Glucose (Glutose) 15 gm Q15M PRN BUCCAL DECREASED GLUCOSE; Start 04/05/19 at 11:30 Diagnostic Test (Pha) (Accu-Chek) 1 ea 02 XX Last administered on 04/14/19 01:31; Admin Dose 1 EA; Start 04/06/19 at 02:00 Insulin Glargine (Lantus) 20 units DAILY@2000 SC Last administered on 04/18/19 21:07; Admin Dose 20 UNITS; Start 04/06/19 at 20:00 Ondansetron HCl (Zofran Inj) 4 mg Q6H PRN IV NAUSEA AND/OR VOMITING Last administered on 04/15/19at 15:45; Admin Dose 4 MG; Start 04/07/19 at 17:00 Midodrine (Proamatine) 10 mg TID@0900,1300,1700 PO Last administered on 04/18/19at 09:44; Admin Dose 10 MG; Start 04/12/19 at 09:00 Vancomycin HCl (Vanco Iv Per Pharmacy) VANCOMYCIN PER PHARMACY PER PROTOCOL XX ; Start 04/16/19 at 14:30 Vasopressin 60 unit/Dextrose 60 ml @ 1.2 mls/hr PRN IV ; Start 04/16/19 at 20:00 Diagnostic Test (Pha) (Accu-Chek) 1 ea Q4 XX ; Start 04/18/19 at 17:00 Total Parenteral Nutrition 1,000 ml @ 50 mls/hr Q20H IV Last administered on 04/18/19at 17:54; Admin Dose 50 MLS/HR; Start 04/18/19 at 16:00 Alteplase, Recombinant (Cathflo (Activase)) 2 mg MAY REPEAT X1 PRN CATHETER IF CATHETER REMAINS OCCULUDED Last administered on 04/17/19at 04:06; Admin Dose 2 MG; Start 04/16/19 at 22:30 Meropenem/Sodium Chloride 50 ml @ 100 mls/hr Q24H IVPB Last administered on 04/18/19at 12:18; Admin Dose 100 MLS/HR; Start 04/18/19 at 12:00 Norepinephrine 16 mg/Dextrose 250 ml @ 0.94 mls/hr TITRATE IV Last administered on 04/19/19at 06:21; Admin Dose 0.94 MLS/HR; Start 04/17/19 at 21:30; Stop 04/19/19 at 08:59 Insulin Aspart (Novolog Insulin Pen) NOVOLOG *MILD* ALGORI... Q4 SC Last administered on 04/19/19at 04:21; Admin Dose 1 UNIT; Start 04/18/19 at 17:00 Norepinephrine 32 mg/Dextrose 250 ml @ 0.47 mls/hr TITRATE IV ; Start 04/19/19 at 09:00 Assessment/Plan Hospital Course (Demo Recall) Mildly abnormal troponin secondary to sepsis renal failure etc. Sepsis bacteremia/ septic shock Pneumonia ? cholangiocarcinoma Renal failure dialysis dependent History of arrhythmia probably sick sinus syndrome versus heart block status post MRI compatible [employer] permanent pacemaker Encephalopathy Paroxysmal atrial fibrillation Recommendations: cont aspirin as long as ok with GI and no active bleeding is noted Antibiotic management as per internal medicine and consultants Continue to be hemodialysis as tolerated Unable to tolerate beta-damian due to his low blood pressure levophed as needed . try to wean off if tolerated f/u GI consultation rec Pacemaker card reviewed. pacemaker is an MRI compatible and MRI can be done . need to call [employer] to change the pacemaker setting right before and after the MRCP. PLEASE CONTACT [facility] rep (Rubio at [phone]) to arrange for setting change fluid management as per renal Thank you for this referral. We will continue to follow along with you JOSE D SOLOMON MD [facility] JOSE D SOLOMON MD Apr 19, 2019 07:53
[2019-04-19] MEDS: DOCUSATE SODIUM 100 MG CAP PO SCH ×2 (07:57→19:58)
[2019-04-19] MEDS: ASPIRIN (EC) 81 MG TAB PO SCH (09:00)
[2019-04-19] MEDS: AMIODARONE 200 MG TAB PO SCH (09:00)
[2019-04-19] MEDS: BALSAM PERU/CASTOR OIL 60 GM TUBE TOP SCH ×2 (09:00→20:12)
[2019-04-19] MEDS: MIDODRINE 5 MG TAB PO SCH ×3 (09:00→14:13)
--- NOTE | 2019-04-19 09:08 | PN ---
DATE: 04/19/2019 SUBJECTIVE: The patient remains critically ill. The patient remains on pressor support. The patien t had hemodialysis yesterday, tolerated well. No other events noted. OBJECTIVE: VITAL SIGNS: Blood pressure is 117/52, respirations 22, pulse 102, temperature 98.6. HEENT: Head is normocephalic. NECK: Supple. HEART: Regular rate. LUNGS: Show diminished breath sounds at the base. ABDOMEN: Soft, nontender to palpation without rebound or guarding. EXTREMITIES: Negative for clubbing, cyanosis. Positive edema. DERMATOLOGIC: No rashes. MUSCULOSKELETAL: No joint effusion. NEUROLOGIC: No change in exam. MEDICATIONS: The patient's medication have been reviewed. LABORATORY DATA: Has been reviewed. IMAGING STUDIES: Have been reviewed. ASSESSMENT AND PLAN: 1. Septic shock. Etiology secondary to gram-negative bacteremia. The patient remains on pressor marquez pport, unable to be weaned off. Continue current medical management. Continue antibiotic therapy. Continue IV fluids. 2. 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 Continue to monitor. Follow up with GI and oncology. The patient is unstable for ERCP at this time. 3. Anemia. Monitor hemoglobin and hematocrit levels. Give Epogen as needed. 4. Mineral bone disorder, monitor calcium and phosphorus levels. 5. End-stage renal disease. Plan for hemodialysis tomorrow. 6. Volume overload. Will continue gentle ultrafiltration with dialysis if hemodynamically stable. 7. Diabetes. Continue current insulin regimen. 8. Nutrition. Continue TPN. 9. Arrhythmia with history of pacemaker. 10. Acute encephalopathy, etiology is toxic metabolic. 11. Lower extremity wounds. Continue wound care. 12. Status pleural effusion, status post thoracentesis. Please note, I spent over 30 minutes of critical care time with this patient. Dictated By: ADA RANGEL DO NR/NTS Conf#: [id number] DID#: [id number] CC: DYLAN GREENE MD; TRAE TRAVIS MD;*EndCC*
[2019-04-19] MEDS ORDERED: VANCOMYCIN 1 GM 250 ML IVPB SCH (12:00)
--- NOTE | 2019-04-19 12:15 | CONS ---
Assessment/Plan Assessment/Plan Hospital Course (Demo Recall) No events overnight patient remains on Levophed drip very weak in no distress afebrile WBC 17 platelets 200 neutrophils 75.6 Antimicrobials: Vancomycin, meropenem Indwelling's: PICC line and upper extremity fistula Microbiology: Blood culture on admission grew Bacteroides fragilis, repeat cx neg Physical examination: This is an obese well-developed chronically ill elderly Citizen [place] man who is in no distress. Head atraumatic normocephalic neck is supple chest rise symmetrical breath sounds diminished bases. Heart: S1-S2. Tachycardic abdomen soft obese bowel sounds hypoactive extremities without cyanosis, trace edema Assessment: 1. Severe sepsis with shock 2. Bacteremia ? source==>likely intraabdominal 3. End-stage renal disease, hemodialysis dependent 4. Recently diagnosed hepatocellular carcinoma, poss obstructing mass and peritoneal carcinomatosis 5. Coronary artery disease status post permanent pacemaker 6. Diabetes 7. Atrial fibrillation 8. DNR Plan: Remains unchanged, continue present care, prognosis guarded possible transition to comfort care Consultation Date/Type/Reason Admit Date/Time Apr 01, 2019 at 17:43 Initial Consult Date 04/03/19 Type of Consult id Requesting Provider: ADA RANGEL DO Date/Time of Note DATE: 04/19/19 TIME: 12:14 Exam/Review of Systems Exam Vitals Vital Signs Date Temp Pulse Resp B/P (MAP) Pulse Ox O2 O2 Flow FiO2 Time Delivery Rate 04/19/19 82 25 100 Nasal 10:00 Cannula 04/19/19 4.0 06:00 04/19/19 98.1 04:00 Intake and Output 04/18/19 04/18/19 04/19/19 1515:00 23:00 07:00 IntakeIntake Total 588.72 ml 842.15 ml 901.22 ml OutputOutput Total 4200 ml 0 ml BalanceBalance 588.72 ml -3357.85 ml 901.22 ml Results Result Diagram: 04/19/19 0414 04/19/19 0414 Results 24hrs Laboratory Tests Test 04/18/19 12:17 04/18/19 17:38 04/18/19 20:39 04/19/19 01:09 Bedside Glucose 124 108 152 182 Test 04/19/19 04:14 04/19/19 04:17 04/19/19 05:00 04/19/19 09:43 White Blood Count 17.0 H Red Blood Count 3.06 L Hemoglobin 9.0 L Hematocrit 29.7 L Mean Corpuscular Volume 97.1 Mean Corpuscular 29.4 Hemoglobin Mean Corpuscular 30.3 L Hemoglobin Concent Red Cell Distribution 18.1 H Width Platelet Count 200 # Mean Platelet Volume 11.6 H Immature Granulocytes % 1.100 H Neutrophils % 75.6 Lymphocytes % 15.1 Monocytes % 7.4 Eosinophils % 0.4 Basophils % 0.4 Nucleated Red Blood 0.6 H Cells % Immature Granulocytes # 0.180 H Neutrophils # 12.9 H Lymphocytes # 2.6 Monocytes # 1.3 H Eosinophils # 0.1 Basophils # 0.1 Nucleated Red Blood 0.1 H Cells # Sodium Level 139 Potassium Level 3.8 Chloride Level 105 Carbon Dioxide Level 26 Anion Gap 8 Blood Urea Nitrogen 24 H Creatinine 3.46 H Est Glomerular Filtrat Rate mL/min Glucose Level 177 Calcium Level 7.7 L Phosphorus Level 3.4 Magnesium Level 2.0 Total Bilirubin 0.7 Direct Bilirubin 0.20 Indirect Bilirubin 0.5 Aspartate Amino 34 Transf (AST/SGOT) Alanine 23 Aminotransferase (ALT/SG PT) Alkaline Phosphatase 127 H Total Protein 5.0 L Albumin 2.1 L Globulin 2.90 Albumin/Globulin Ratio 0.72 Bedside Glucose 158 194 Random Vancomycin Level 14.8 Medications Medication Current Medications Amiodarone HCl (Cordarone) 200 mg DAILY PO Last administered on 04/18/19 09:44; Admin Dose 200 MG; Start 04/02/19 at 09:00 Aspirin (Halfprin) 81 mg DAILY PO Last administered on 04/18/19 09:43; Admin Dose 81 MG; Start 04/02/19 at 09:00 Atorvastatin Calcium (Lipitor) 20 mg QHS PO Last administered on 04/15/19 20:53; Admin Dose 20 MG; Start 04/01/19 at 21:00 Docusate Sodium (Colace) 100 mg BID PO Last administered on 04/18/19 09:44; Admin Dose 100 MG; Start 04/01/19 at 21:00 Montelukast Sodium (Singulair) 10 mg QHS PO Last administered on 04/17/19 20:16; Admin Dose 10 MG; Start 04/01/19 at 21:00 Sevelamer Carbonate (Renvela) 1.6 gm BID WITH MEALS PO Last administered on 04/17/19 17:37; Admin Dose 1.6 GM; Start 04/01/19 at 21:00 Albuterol/ Ipratropium (Duoneb) 3 ml Q2H RESP THERAPY PRN NEB SHORTNESS OF BREATH Last administered on 04/09/19 21:01; Admin Dose 3 ML; Start 04/01/19 at 21:00 Zolpidem Tartrate (Ambien) 5 mg QHS PRN PO INSOMNIA Last administered on 04/18/19 03:37; Admin Dose 5 MG; Start 04/01/19 at 21:00 IV Flush (NS 10 ml) 10 ml PRN PRN IV IV PROTOCOL; Start 04/03/19 at 17:00 Epoetin Jatinder-epbx (Retacrit (Esrd)) 10,000 unit AFTER EACH DIALYSIS SC Last administered on 04/19/19 01:19; Admin Dose 10,000 UNIT; Start 04/04/19 at 16:00 Miscellaneous Information 1 ea NOTE XX ; Start 04/05/19 at 11:30 Glucose (Glutose) 15 gm Q15M PRN PO DECREASED GLUCOSE; Start 04/05/19 at 11:30 Glucose (Glutose) 22.5 gm Q15M PRN PO DECREASED GLUCOSE; Start 04/05/19 at 11:30 Dextrose (D50w Syringe) 25 ml Q15M PRN IV DECREASED GLUCOSE Last administered on 04/11/19 11:46; Admin Dose 25 ML; Start 04/05/19 at 11:30 Dextrose (D50w Syringe) 50 ml Q15M PRN IV DECREASED GLUCOSE; Start 04/05/19 at 11:30 Glucagon (Glucagen) 1 mg Q15M PRN IM DECREASED GLUCOSE; Start 04/05/19 at 11:30 Glucose (Glutose) 15 gm Q15M PRN BUCCAL DECREASED GLUCOSE; Start 04/05/19 at 11:30 Diagnostic Test (Pha) (Accu-Chek) 1 ea 02 XX Last administered on 04/14/19at 01:31; Admin Dose 1 EA; Start 04/06/19 at 02:00 Insulin Glargine (Lantus) 20 units DAILY@2000 SC Last administered on 7/2/19at 21:07; Admin Dose 20 UNITS; Start 04/06/19 at 20:00 Ondansetron HCl (Zofran Inj) 4 mg Q6H PRN IV NAUSEA AND/OR VOMITING Last administered on 04/15/19at 15:45; Admin Dose 4 MG; Start 04/07/19 at 17:00 Midodrine (Proamatine) 10 mg TID@0900,1300,1700 PO Last administered on 04/18/19at 09:44; Admin Dose 10 MG; Start 04/12/19 at 09:00 Vancomycin HCl (Vanco Iv Per Pharmacy) VANCOMYCIN PER PHARMACY PER PROTOCOL XX ; Start 04/16/19 at 14:30 Vasopressin 60 unit/Dextrose 60 ml @ 1.2 mls/hr PRN IV ; Start 04/16/19 at 20:00 Diagnostic Test (Pha) (Accu-Chek) 1 ea Q4 XX Last administered on 04/19/19at 09:49; Admin Dose 1 EA; Start 04/18/19 at 17:00 Total Parenteral Nutrition 1,000 ml @ 50 mls/hr Q20H IV Last administered on 04/18/19at 17:54; Admin Dose 50 MLS/HR; Start 04/18/19 at 16:00 Alteplase, Recombinant (Cathflo (Activase)) 2 mg MAY REPEAT X1 PRN CATHETER IF CATHETER REMAINS OCCULUDED Last administered on 04/17/19at 04:06; Admin Dose 2 MG; Start 04/16/19 at 22:30 Meropenem/Sodium Chloride 50 ml @ 100 mls/hr Q24H IVPB Last administered on 04/18/19at 12:18; Admin Dose 100 MLS/HR; Start 04/18/19 at 12:00 Insulin Aspart (Novolog Insulin Pen) NOVOLOG *MILD* ALGORI... Q4 SC Last administered on 04/19/19at 09:49; Admin Dose 2 UNIT; Start 04/18/19 at 17:00 Norepinephrine 32 mg/Dextrose 250 ml @ 0.47 mls/hr TITRATE IV ; Start 04/19/19 at 09:00 Vancomycin HCl 250 ml @ 125 mls/hr ONCE IVPB ; Start 04/19/19 at 12:00; Stop 04/19/19 at 23:59 Miscellaneous Information (*Rx Drug Level Order Reminder*) RANDOM VANCO LEVEL ... 0500 ONCE XX ; Start 04/22/19 at 05:00; Stop 04/22/19 at 05:01 JOAO RAHMAN NP Apr 19, 2019 12:15
--- NOTE | 2019-04-19 12:48 | CONS ---
Consult Date/Type/Reason Admit Date/Time Apr 01, 2019 at 17:43 Initial Consult Date 04/03/19 Type of Consult Pulmonary Requesting Provider: ADA RANGEL DO Date/Time of Note DATE: 04/19/19 TIME: 12:47 Subjective No significant changes continues vasopressors. Objective Vital Signs Date Temp Pulse Resp B/P (MAP) Pulse Ox O2 O2 Flow FiO2 Time Delivery Rate 04/19/19 90 19 126/47 100 Nasal 12:30 (73) Cannula 04/19/19 4.0 06:00 04/19/19 98.1 04:00 Intake and Output 04/18/19 04/18/19 04/19/19 1515:00 23:00 07:00 IntakeIntake Total 588.72 ml 842.15 ml 901.22 ml OutputOutput Total 4200 ml 0 ml BalanceBalance 588.72 ml -3357.85 ml 901.22 ml Exam GENERAL: Elderly appearing gentleman on nasal cannula O2. VITAL SIGNS: per chart NECK: Supple. No JVD or lymphadenopathy. CARDIAC EXAM: S1, S2. No added sounds or murmurs. CHEST: clear bilaterally, No added sounds, rales or wheezes ABDOMEN: Soft, nontender. No guarding or rebound. EXTREMITIES: No cyanosis, clubbing or edema. NEUROLOGIC: Generalized weakness. No focal deficits Vent Setting Fraction of Inspired Oxygen pe: 28 Results/Medications Result Diagram: 04/19/19 0414 04/19/19 0414 Results 24 hrs Laboratory Tests Test 04/18/19 17:38 04/18/19 20:39 04/19/19 01:09 04/19/19 04:14 Bedside Glucose 108 152 182 White Blood Count 17.0 H Red Blood Count 3.06 L Hemoglobin 9.0 L Hematocrit 29.7 L Mean Corpuscular Volume 97.1 Mean Corpuscular 29.4 Hemoglobin Mean Corpuscular 30.3 L Hemoglobin Concent Red Cell Distribution 18.1 H Width Platelet Count 200 # Mean Platelet Volume 11.6 H Immature Granulocytes % 1.100 H Neutrophils % 75.6 Lymphocytes % 15.1 Monocytes % 7.4 Eosinophils % 0.4 Basophils % 0.4 Nucleated Red Blood 0.6 H Cells % Immature Granulocytes # 0.180 H Neutrophils # 12.9 H Lymphocytes # 2.6 Monocytes # 1.3 H Eosinophils # 0.1 Basophils # 0.1 Nucleated Red Blood 0.1 H Cells # Sodium Level 139 Potassium Level 3.8 Chloride Level 105 Carbon Dioxide Level 26 Anion Gap 8 Blood Urea Nitrogen 24 H Creatinine 3.46 H Est Glomerular Filtrat Rate mL/min Glucose Level 177 Calcium Level 7.7 L Phosphorus Level 3.4 Magnesium Level 2.0 Total Bilirubin 0.7 Direct Bilirubin 0.20 Indirect Bilirubin 0.5 Aspartate Amino 34 Transf (AST/SGOT) Alanine 23 Aminotransferase (ALT/SG PT) Alkaline Phosphatase 127 H Total Protein 5.0 L Albumin 2.1 L Globulin 2.90 Albumin/Globulin Ratio 0.72 Test 04/19/19 04:17 04/19/19 05:00 04/19/19 09:43 Bedside Glucose 158 194 Random Vancomycin Level 14.8 Medications Current Medications Amiodarone HCl (Cordarone) 200 mg DAILY PO Last administered on 04/18/19 09:44; Admin Dose 200 MG; Start 04/02/19 at 09:00 Aspirin (Halfprin) 81 mg DAILY PO Last administered on 04/18/19 09:43; Admin Dose 81 MG; Start 04/02/19 at 09:00 Atorvastatin Calcium (Lipitor) 20 mg QHS PO Last administered on 04/15/19 20:53; Admin Dose 20 MG; Start 04/01/19 at 21:00 Docusate Sodium (Colace) 100 mg BID PO Last administered on 04/18/19 09:44; Admin Dose 100 MG; Start 04/01/19 at 21:00 Montelukast Sodium (Singulair) 10 mg QHS PO Last administered on 04/17/19 20:16; Admin Dose 10 MG; Start 04/01/19 at 21:00 Sevelamer Carbonate (Renvela) 1.6 gm BID WITH MEALS PO Last administered on 04/17/19 17:37; Admin Dose 1.6 GM; Start 04/01/19 at 21:00 Albuterol/ Ipratropium (Duoneb) 3 ml Q2H RESP THERAPY PRN NEB SHORTNESS OF BREATH Last administered on 04/09/19 21:01; Admin Dose 3 ML; Start 04/01/19 at 21:00 Zolpidem Tartrate (Ambien) 5 mg QHS PRN PO INSOMNIA Last administered on 7/2/19at 03:37; Admin Dose 5 MG; Start 04/01/19 at 21:00 IV Flush (NS 10 ml) 10 ml PRN PRN IV IV PROTOCOL; Start 04/03/19 at 17:00 Epoetin Jatinder-epbx (Retacrit (Esrd)) 10,000 unit AFTER EACH DIALYSIS SC Last administered on 04/19/19 01:19; Admin Dose 10,000 UNIT; Start 04/04/19 at 16:00 Miscellaneous Information 1 ea NOTE XX ; Start 04/05/19 at 11:30 Glucose (Glutose) 15 gm Q15M PRN PO DECREASED GLUCOSE; Start 04/05/19 at 11:30 Glucose (Glutose) 22.5 gm Q15M PRN PO DECREASED GLUCOSE; Start 04/05/19 at 11:30 Dextrose (D50w Syringe) 25 ml Q15M PRN IV DECREASED GLUCOSE Last administered on 04/11/19at 11:46; Admin Dose 25 ML; Start 04/05/19 at 11:30 Dextrose (D50w Syringe) 50 ml Q15M PRN IV DECREASED GLUCOSE; Start 04/05/19 at 11:30 Glucagon (Glucagen) 1 mg Q15M PRN IM DECREASED GLUCOSE; Start 04/05/19 at 11:30 Glucose (Glutose) 15 gm Q15M PRN BUCCAL DECREASED GLUCOSE; Start 04/05/19 at 11:30 Diagnostic Test (Pha) (Accu-Chek) 1 ea 02 XX Last administered on 04/14/19at 01:31; Admin Dose 1 EA; Start 04/06/19 at 02:00 Insulin Glargine (Lantus) 20 units DAILY@2000 SC Last administered on 04/18/19at 21:07; Admin Dose 20 UNITS; Start 04/06/19 at 20:00 Ondansetron HCl (Zofran Inj) 4 mg Q6H PRN IV NAUSEA AND/OR VOMITING Last administered on 04/15/19at 15:45; Admin Dose 4 MG; Start 04/07/19 at 17:00 Midodrine (Proamatine) 10 mg TID@0900,1300,1700 PO Last administered on 04/18/19at 09:44; Admin Dose 10 MG; Start 04/12/19 at 09:00 Vancomycin HCl (Vanco Iv Per Pharmacy) VANCOMYCIN PER PHARMACY PER PROTOCOL XX ; Start 04/16/19 at 14:30 Vasopressin 60 unit/Dextrose 60 ml @ 1.2 mls/hr PRN IV ; Start 04/16/19 at 20:00 Diagnostic Test (Pha) (Accu-Chek) 1 ea Q4 XX Last administered on 04/19/19at 09:49; Admin Dose 1 EA; Start 04/18/19 at 17:00 Total Parenteral Nutrition 1,000 ml @ 50 mls/hr Q20H IV Last administered on 04/18/19at 17:54; Admin Dose 50 MLS/HR; Start 04/18/19 at 16:00 Alteplase, Recombinant (Cathflo (Activase)) 2 mg MAY REPEAT X1 PRN CATHETER IF CATHETER REMAINS OCCULUDED Last administered on 04/17/19at 04:06; Admin Dose 2 MG; Start 04/16/19 at 22:30 Meropenem/Sodium Chloride 50 ml @ 100 mls/hr Q24H IVPB Last administered on 04/18/19at 12:18; Admin Dose 100 MLS/HR; Start 04/18/19 at 12:00 Insulin Aspart (Novolog Insulin Pen) NOVOLOG *MILD* ALGORI... Q4 SC Last administered on 04/19/19at 09:49; Admin Dose 2 UNIT; Start 04/18/19 at 17:00 Norepinephrine 32 mg/Dextrose 250 ml @ 0.47 mls/hr TITRATE IV ; Start 04/19/19 at 09:00 Vancomycin HCl 250 ml @ 125 mls/hr ONCE IVPB ; Start 04/19/19 at 12:00; Stop 04/19/19 at 23:59 Miscellaneous Information (*Rx Drug Level Order Reminder*) RANDOM VANCO LEVEL ... 0500 ONCE XX ; Start 04/22/19 at 05:00; Stop 04/22/19 at 05:01 Assessment/Plan Hospital Course (Demo Recall) Assessment 1. Persistent septic shock requiring vasopressor support blood cultures positive for Bacteroides ongoing vasopressor requirement, no evidence of renal insufficiency. 2. History of end-stage renal failure on hemodialysis 3. History of cholangiocarcinoma. 4. History of arrhythmia with pacemaker 5. Diabetes mellitus 6. Dysphagia remains risk of aspiration. 7. Encephalopathy toxic metabolic, appears to be slowly improving 8. Hypoxemic respiratory failure with pleural effusion status post thoracentesis. Plan 1. Continue supplemental O2 as needed 2. Hemodialysis as tolerated. 3. Continue antibiotics per ID 4. Status post thoracentesis left lung. 5. Titrate vasopressors to keep map greater than 65, no evidence of adrenal insufficiency with normal cortisol level noted. Still remains vasopressor dependent for several days. Consider midodrine. 6. Speech therapy recommendations aspiration precautions. Critical care time 40 minutes Family considering transition to comfort care. DNR noted. TRAE TRAVIS MD, [facility] Apr 19, 2019 12:48
[2019-04-19] MEDS: MEROPENEM 500MG/50 ML (PMX) 50 ML IVPB SCH (13:28)
[2019-04-19] MEDS: TPN 1,000 ML IV SCH (13:29)
[2019-04-19] MEDS ORDERED: morphine (DRIP) 100 MG/100 ML 100 ML IV SCH (14:00)
--- NOTE | 2019-04-19 17:13 | CONS ---
Assessment/Plan Assessment/Plan Assessment/Plan (Daily) Long discussion today with patient's son, who is primarily at the bedside with his mother. I explained that his father is not improving remains on quadruple strength levophedd, and at times his blood pressure dips into the 60s. I explained to patient has an extremely poor prognosis and that he is suffering at this time being on a ventilator and in my opinion is having respiratory distress. I suggested comfort care especially since gentleman has a history of 2 primary malignancies respiratory failure and history of encephalopathy and sepsis syndrome. The youngest son agreed that patient should be placed on comfort measures however I spoke to his elder brother who disagreed and asked that patient be kept alive for the next 10 days. I explained to family members that we cannot keep patient on pressors who has no prognosis for recovery and who is suffering. Eldest family member has not arrived to the hospital to have a conversation with me this evening. I believe a bioethics meeting is in order at this time at least to discuss not increasing level of care she is with the son initially asked me to do. Consultation Date/Type/Reason Admit Date/Time Apr 01, 2019 at 17:43 Date/Time of Note DATE: 04/19/19 TIME: 17:07 Past Medical History Home Meds Reported Medications Docusate Sodium* (Docusate Sodium*) 100 Mg Capsule, 100 MG PO BID, #60 CAP 04/01/19 Metoprolol Succinate* (Toprol XL*) 25 Mg Tab.sr.24h, 25 MG PO DAILY, #30 TAB 04/01/19 Aspirin* (Aspirin* EC) 81 Mg Tablet.dr, 81 MG PO DAILY, TAB 04/01/19 Fenofibrate, Micronized (Fenofibrate) 134 Mg Capsule, 134 MG PO DAILY, CAP 04/01/19 Sevelamer Carbonate* (Renvela*) 800 Mg Tablet, 1.6 GM PO BID, TAB 04/01/19 Amiodarone Hcl* (Amiodarone Hcl*) 200 Mg Tablet, 200 MG PO DAILY, #30 TAB TAKE Q ,TH,SAT WITH DIALYSIS 04/01/19 Montelukast Sodium* (Montelukast Sodium*) 10 Mg Tablet, 10 MG PO QHS, #30 TAB 04/01/19 [Nephro-Elieser] No Conflict Check, 1 TAB PO DAILY 04/01/19 Sacubitril/Valsartan (Entresto 24 mg-26 mg Tablet) 1 Each Tablet, 1 EACH PO BID, TAB 04/01/19 Midodrine* (Midodrine*) 5 Mg Tablet, 5 MG PO DAILY, TAB 04/01/19 Furosemide* (Furosemide*) 40 Mg Tablet, 40 MG PO DAILY, TAB 04/01/19 Atorvastatin Calcium* (Atorvastatin Calcium*) 20 Mg Tablet, 20 MG PO QHS, #30 TAB 04/01/19 Medications Current Medications Amiodarone HCl (Cordarone) 200 mg DAILY PO Last administered on 04/18/19 09:44; Admin Dose 200 MG; Start 04/02/19 at 09:00 Aspirin (Halfprin) 81 mg DAILY PO Last administered on 04/18/19 09:43; Admin Dose 81 MG; Start 04/02/19 at 09:00 Atorvastatin Calcium (Lipitor) 20 mg QHS PO Last administered on 04/15/19at 20:53; Admin Dose 20 MG; Start 04/01/19 at 21:00 Docusate Sodium (Colace) 100 mg BID PO Last administered on 04/18/19 09:44; Admin Dose 100 MG; Start 04/01/19 at 21:00 Montelukast Sodium (Singulair) 10 mg QHS PO Last administered on 04/17/19 20:16; Admin Dose 10 MG; Start 04/01/19 at 21:00 Sevelamer Carbonate (Renvela) 1.6 gm BID WITH MEALS PO Last administered on 04/17/19 17:37; Admin Dose 1.6 GM; Start 04/01/19 at 21:00 Albuterol/ Ipratropium (Duoneb) 3 ml Q2H RESP THERAPY PRN NEB SHORTNESS OF BREATH Last administered on 04/09/19 21:01; Admin Dose 3 ML; Start 04/01/19 at 21:00 Zolpidem Tartrate (Ambien) 5 mg QHS PRN PO INSOMNIA Last administered on 04/18/19 03:37; Admin Dose 5 MG; Start 04/01/19 at 21:00 IV Flush (NS 10 ml) 10 ml PRN PRN IV IV PROTOCOL; Start 04/03/19 at 17:00 Epoetin Jatinder-epbx (Retacrit (Esrd)) 10,000 unit AFTER EACH DIALYSIS SC Last administered on 04/19/19at 01:19; Admin Dose 10,000 UNIT; Start 04/04/19 at 16:00 Miscellaneous Information 1 ea NOTE XX ; Start 04/05/19 at 11:30 Glucose (Glutose) 15 gm Q15M PRN PO DECREASED GLUCOSE; Start 04/05/19 at 11:30 Glucose (Glutose) 22.5 gm Q15M PRN PO DECREASED GLUCOSE; Start 04/05/19 at 11:30 Dextrose (D50w Syringe) 25 ml Q15M PRN IV DECREASED GLUCOSE Last administered on 04/11/19at 11:46; Admin Dose 25 ML; Start 04/05/19 at 11:30 Dextrose (D50w Syringe) 50 ml Q15M PRN IV DECREASED GLUCOSE; Start 04/05/19 at 11:30 Glucagon (Glucagen) 1 mg Q15M PRN IM DECREASED GLUCOSE; Start 04/05/19 at 11:30 Glucose (Glutose) 15 gm Q15M PRN BUCCAL DECREASED GLUCOSE; Start 04/05/19 at 11:30 Diagnostic Test (Pha) (Accu-Chek) 1 ea 02 XX Last administered on 04/14/19at 01:31; Admin Dose 1 EA; Start 04/06/19 at 02:00 Insulin Glargine (Lantus) 20 units DAILY@2000 SC Last administered on 04/18/19at 21:07; Admin Dose 20 UNITS; Start 04/06/19 at 20:00 Ondansetron HCl (Zofran Inj) 4 mg Q6H PRN IV NAUSEA AND/OR VOMITING Last administered on 04/15/19at 15:45; Admin Dose 4 MG; Start 04/07/19 at 17:00 Midodrine (Proamatine) 10 mg TID@0900,1300,1700 PO Last administered on 04/18/19at 09:44; Admin Dose 10 MG; Start 04/12/19 at 09:00 Vancomycin HCl (Vanco Iv Per Pharmacy) VANCOMYCIN PER PHARMACY PER PROTOCOL XX ; Start 04/16/19 at 14:30 Vasopressin 60 unit/Dextrose 60 ml @ 1.2 mls/hr PRN IV ; Start 04/16/19 at 20:00 Diagnostic Test (Pha) (Accu-Chek) 1 ea Q4 XX Last administered on 04/19/19 16:54; Admin Dose 1 EA; Start 04/18/19 at 17:00 Total Parenteral Nutrition 1,000 ml @ 50 mls/hr Q20H IV Last administered on 04/19/19 13:29; Admin Dose 50 MLS/HR; Start 04/18/19 at 16:00 Alteplase, Recombinant (Cathflo (Activase)) 2 mg MAY REPEAT X1 PRN CATHETER IF CATHETER REMAINS OCCULUDED Last administered on 04/17/19at 04:06; Admin Dose 2 MG; Start 04/16/19 at 22:30 Meropenem/Sodium Chloride 50 ml @ 100 mls/hr Q24H IVPB Last administered on 04/19/19 13:28; Admin Dose 100 MLS/HR; Start 04/18/19 at 12:00 Insulin Aspart (Novolog Insulin Pen) NOVOLOG *MILD* ALGORI... Q4 SC Last administered on 04/19/19 13:56; Admin Dose 1 UNIT; Start 04/18/19 at 17:00 Norepinephrine 32 mg/Dextrose 250 ml @ 0.47 mls/hr TITRATE IV ; Start 04/19/19 at 09:00 Vancomycin HCl 250 ml @ 125 mls/hr ONCE IVPB Last administered on 04/19/19 13:29; Admin Dose 125 MLS/HR; Start 04/19/19 at 12:00; Stop 04/19/19 at 23:59 Miscellaneous Information (*Rx Drug Level Order Reminder*) RANDOM VANCO LEVEL ... 0500 ONCE XX ; Start 04/22/19 at 05:00; Stop 04/22/19 at 05:01 Allergies: Coded Allergies: No Known Allergy (Unverified , 04/01/19) Social History Smoking Status: Former smoker Exam/Review of Systems Exam Vitals Vital Signs Date Temp Pulse Resp B/P (MAP) Pulse Ox O2 O2 Flow FiO2 Time Delivery Rate 04/19/19 80 16:00 04/19/19 17 112/44 100 Nasal 15:00 (66) Cannula 04/19/19 4.0 12:00 04/19/19 98.1 04:00 Intake and Output 04/18/19 04/18/19 04/19/19 1515:00 23:00 07:00 IntakeIntake Total 588.72 ml 842.15 ml 951.22 ml OutputOutput Total 4200 ml 0 ml BalanceBalance 588.72 ml -3357.85 ml 951.22 ml Results Result Diagram: 04/19/19 0414 04/19/19 0414 Results 24hrs Laboratory Tests Test 04/18/19 17:38 04/18/19 20:39 04/19/19 01:09 04/19/19 04:14 Bedside Glucose 108 152 182 White Blood Count 17.0 H Red Blood Count 3.06 L Hemoglobin 9.0 L Hematocrit 29.7 L Mean Corpuscular Volume 97.1 Mean Corpuscular 29.4 Hemoglobin Mean Corpuscular 30.3 L Hemoglobin Concent Red Cell Distribution 18.1 H Width Platelet Count 200 # Mean Platelet Volume 11.6 H Immature Granulocytes % 1.100 H Neutrophils % 75.6 Lymphocytes % 15.1 Monocytes % 7.4 Eosinophils % 0.4 Basophils % 0.4 Nucleated Red Blood 0.6 H Cells % Immature Granulocytes # 0.180 H Neutrophils # 12.9 H Lymphocytes # 2.6 Monocytes # 1.3 H Eosinophils # 0.1 Basophils # 0.1 Nucleated Red Blood 0.1 H Cells # Sodium Level 139 Potassium Level 3.8 Chloride Level 105 Carbon Dioxide Level 26 Anion Gap 8 Blood Urea Nitrogen 24 H Creatinine 3.46 H Est Glomerular Filtrat Rate mL/min Glucose Level 177 Calcium Level 7.7 L Phosphorus Level 3.4 Magnesium Level 2.0 Total Bilirubin 0.7 Direct Bilirubin 0.20 Indirect Bilirubin 0.5 Aspartate Amino 34 Transf (AST/SGOT) Alanine 23 Aminotransferase (ALT/SG PT) Alkaline Phosphatase 127 H Total Protein 5.0 L Albumin 2.1 L Globulin 2.90 Albumin/Globulin Ratio 0.72 Test 04/19/19 04:17 04/19/19 05:00 04/19/19 09:43 04/19/19 13:52 Bedside Glucose 158 194 172 Random Vancomycin Level 14.8 Test 04/19/19 16:53 Bedside Glucose 133 Medications Medication Current Medications Amiodarone HCl (Cordarone) 200 mg DAILY PO Last administered on 04/18/19at 09:44; Admin Dose 200 MG; Start 04/02/19 at 09:00 Aspirin (Halfprin) 81 mg DAILY PO Last administered on 04/18/19at 09:43; Admin Dose 81 MG; Start 04/02/19 at 09:00 Atorvastatin Calcium (Lipitor) 20 mg QHS PO Last administered on 04/15/19 20:53; Admin Dose 20 MG; Start 04/01/19 at 21:00 Docusate Sodium (Colace) 100 mg BID PO Last administered on 04/18/19 09:44; Admin Dose 100 MG; Start 04/01/19 at 21:00 Montelukast Sodium (Singulair) 10 mg QHS PO Last administered on 04/17/19 20:16; Admin Dose 10 MG; Start 04/01/19 at 21:00 Sevelamer Carbonate (Renvela) 1.6 gm BID WITH MEALS PO Last administered on 04/17/19 17:37; Admin Dose 1.6 GM; Start 04/01/19 at 21:00 Albuterol/ Ipratropium (Duoneb) 3 ml Q2H RESP THERAPY PRN NEB SHORTNESS OF BREATH Last administered on 04/09/19at 21:01; Admin Dose 3 ML; Start 04/01/19 at 21:00 Zolpidem Tartrate (Ambien) 5 mg QHS PRN PO INSOMNIA Last administered on 04/18/19 03:37; Admin Dose 5 MG; Start 04/01/19 at 21:00 IV Flush (NS 10 ml) 10 ml PRN PRN IV IV PROTOCOL; Start 04/03/19 at 17:00 Epoetin Jatinder-epbx (Retacrit (Esrd)) 10,000 unit AFTER EACH DIALYSIS SC Last administered on 04/19/19 01:19; Admin Dose 10,000 UNIT; Start 04/04/19 at 16:00 Miscellaneous Information 1 ea NOTE XX ; Start 04/05/19 at 11:30 Glucose (Glutose) 15 gm Q15M PRN PO DECREASED GLUCOSE; Start 04/05/19 at 11:30 Glucose (Glutose) 22.5 gm Q15M PRN PO DECREASED GLUCOSE; Start 04/05/19 at 11:30 Dextrose (D50w Syringe) 25 ml Q15M PRN IV DECREASED GLUCOSE Last administered on 04/11/19at 11:46; Admin Dose 25 ML; Start 04/05/19 at 11:30 Dextrose (D50w Syringe) 50 ml Q15M PRN IV DECREASED GLUCOSE; Start 04/05/19 at 11:30 Glucagon (Glucagen) 1 mg Q15M PRN IM DECREASED GLUCOSE; Start 04/05/19 at 11:30 Glucose (Glutose) 15 gm Q15M PRN BUCCAL DECREASED GLUCOSE; Start 04/05/19 at 11:30 Diagnostic Test (Pha) (Accu-Chek) 1 ea 02 XX Last administered on 04/14/19 01:31; Admin Dose 1 EA; Start 04/06/19 at 02:00 Insulin Glargine (Lantus) 20 units DAILY@2000 SC Last administered on 04/18/19 21:07; Admin Dose 20 UNITS; Start 04/06/19 at 20:00 Ondansetron HCl (Zofran Inj) 4 mg Q6H PRN IV NAUSEA AND/OR VOMITING Last administered on 04/15/19 15:45; Admin Dose 4 MG; Start 04/07/19 at 17:00 Midodrine (Proamatine) 10 mg TID@0900,1300,1700 PO Last administered on 09:44; Admin Dose 10 MG; Start 04/12/19 at 09:00 Vancomycin HCl (Vanco Iv Per Pharmacy) VANCOMYCIN PER PHARMACY PER PROTOCOL XX ; Start 04/16/19 at 14:30 Vasopressin 60 unit/Dextrose 60 ml @ 1.2 mls/hr PRN IV ; Start 04/16/19 at 20:00 Diagnostic Test (Pha) (Accu-Chek) 1 ea Q4 XX Last administered on 04/19/19 16:54; Admin Dose 1 EA; Start 04/18/19 at 17:00 Total Parenteral Nutrition 1,000 ml @ 50 mls/hr Q20H IV Last administered on 04/19/19 13:29; Admin Dose 50 MLS/HR; Start 04/18/19 at 16:00 Alteplase, Recombinant (Cathflo (Activase)) 2 mg MAY REPEAT X1 PRN CATHETER IF CATHETER REMAINS OCCULUDED Last administered on 04/17/19 04:06; Admin Dose 2 MG; Start 04/16/19 at 22:30 Meropenem/Sodium Chloride 50 ml @ 100 mls/hr Q24H IVPB Last administered on 04/19/19 13:28; Admin Dose 100 MLS/HR; Start 04/18/19 at 12:00 Insulin Aspart (Novolog Insulin Pen) NOVOLOG *MILD* ALGORI... Q4 SC Last administered on 04/19/19at 13:56; Admin Dose 1 UNIT; Start 04/18/19 at 17:00 Norepinephrine 32 mg/Dextrose 250 ml @ 0.47 mls/hr TITRATE IV ; Start 04/19/19 at 09:00 Vancomycin HCl 250 ml @ 125 mls/hr ONCE IVPB Last administered on 04/19/19at 13:29; Admin Dose 125 MLS/HR; Start 04/19/19 at 12:00; Stop 04/19/19 at 23:59 Miscellaneous Information (*Rx Drug Level Order Reminder*) RANDOM VANCO LEVEL ... 0500 ONCE XX ; Start 04/22/19 at 05:00; Stop 04/22/19 at 05:01 LEATHA CISNEROS Apr 19, 2019 17:13
--- NOTE | 2019-04-19 18:39 | CONS ---
Assessment/Plan Assessment/Plan Assessment/Plan (Daily) Assessment/Plan Hospital Course (Demo Recall) 83 yo male 1. Severe sepsis. -Bacteremia with possible intra-abdominal etiology 2. Ascites. -04/14 paracentesis 3. Pneumonia. 4. Cholangiocarcinoma with carcinomatosis. -H/O hepatocellular cancer -CA 199 1000 and alpha-fetoprotein was within normal limit. This cancer cell marker are more in favor of cholangiocarcinoma rather than hepatocellular cancer. 5. Diabetes mellitus. 6. Atrial fibrillation. -paced 7. Congestive heart failure. 8. Dilated left-sided biliary system. 9. Anemia. -positive fob, low iron, tibc, %sat, high ferritin -when stable can consider EGD/colon. 10. ESRD -on HD Plan -Continue ICU supportive care Is on TPN -Pt needs ERCP but deemed too unstable per anesthesiology. No cardiac clearance given yet. Still requiring pressor support Consultation Date/Type/Reason Admit Date/Time Apr 01, 2019 at 17:43 Initial Consult Date 04/03/19 Requesting Provider: ADA RANGEL DO Date/Time of Note DATE: 04/19/19 TIME: 18:38 24 HR Interval Summary Subjective hx not possible: pt critical Exam/Review of Systems Exam Vitals Vital Signs Date Temp Pulse Resp B/P (MAP) Pulse Ox O2 O2 Flow FiO2 Time Delivery Rate 04/19/19 4.0 17:31 04/19/19 80 16:00 04/19/19 17 112/44 100 Nasal 15:00 (66) Cannula 04/19/19 98.1 04:00 Intake and Output 04/18/19 04/18/19 04/19/19 1515:00 23:00 07:00 IntakeIntake Total 588.72 ml 842.15 ml 951.22 ml OutputOutput Total 4200 ml 0 ml BalanceBalance 588.72 ml -3357.85 ml 951.22 ml Constitutional: non-verbal Cardiovascular: regular rate and rhythm, nl pulses Musculoskeletal: nl extremities to inspection, nl gait and stance Extremities: normal pulses Results Result Diagram: 04/19/19 0414 04/19/19 0414 Results 24hrs Laboratory Tests Test 04/18/19 20:39 04/19/19 01:09 04/19/19 04:14 04/19/19 04:17 Bedside Glucose 152 182 158 White Blood Count 17.0 H Red Blood Count 3.06 L Hemoglobin 9.0 L Hematocrit 29.7 L Mean Corpuscular Volume 97.1 Mean Corpuscular 29.4 Hemoglobin Mean Corpuscular 30.3 L Hemoglobin Concent Red Cell Distribution 18.1 H Width Platelet Count 200 # Mean Platelet Volume 11.6 H Immature Granulocytes % 1.100 H Neutrophils % 75.6 Lymphocytes % 15.1 Monocytes % 7.4 Eosinophils % 0.4 Basophils % 0.4 Nucleated Red Blood 0.6 H Cells % Immature Granulocytes # 0.180 H Neutrophils # 12.9 H Lymphocytes # 2.6 Monocytes # 1.3 H Eosinophils # 0.1 Basophils # 0.1 Nucleated Red Blood 0.1 H Cells # Sodium Level 139 Potassium Level 3.8 Chloride Level 105 Carbon Dioxide Level 26 Anion Gap 8 Blood Urea Nitrogen 24 H Creatinine 3.46 H Est Glomerular Filtrat Rate mL/min Glucose Level 177 Calcium Level 7.7 L Phosphorus Level 3.4 Magnesium Level 2.0 Total Bilirubin 0.7 Direct Bilirubin 0.20 Indirect Bilirubin 0.5 Aspartate Amino 34 Transf (AST/SGOT) Alanine 23 Aminotransferase (ALT/SG PT) Alkaline Phosphatase 127 H Total Protein 5.0 L Albumin 2.1 L Globulin 2.90 Albumin/Globulin Ratio 0.72 Test 04/19/19 05:00 04/19/19 09:43 04/19/19 13:52 04/19/19 16:53 Random Vancomycin Level 14.8 Bedside Glucose 194 172 133 Medications Medication Current Medications Amiodarone HCl (Cordarone) 200 mg DAILY PO Last administered on 04/18/19 09:44; Admin Dose 200 MG; Start 04/02/19 at 09:00 Aspirin (Halfprin) 81 mg DAILY PO Last administered on 04/18/19 09:43; Admin Dose 81 MG; Start 04/02/19 at 09:00 Atorvastatin Calcium (Lipitor) 20 mg QHS PO Last administered on 04/15/19 20:53; Admin Dose 20 MG; Start 04/01/19 at 21:00 Docusate Sodium (Colace) 100 mg BID PO Last administered on 04/18/19 09:44; Admin Dose 100 MG; Start 04/01/19 at 21:00 Montelukast Sodium (Singulair) 10 mg QHS PO Last administered on 7/1/19at 20:16; Admin Dose 10 MG; Start 04/01/19 at 21:00 Sevelamer Carbonate (Renvela) 1.6 gm BID WITH MEALS PO Last administered on 04/17/19 17:37; Admin Dose 1.6 GM; Start 04/01/19 at 21:00 Albuterol/ Ipratropium (Duoneb) 3 ml Q2H RESP THERAPY PRN NEB SHORTNESS OF DANIEL ATH Last administered on 04/09/19 21:01; Admin Dose 3 ML; Start 04/01/19 at 21:00 Zolpidem Tartrate (Ambien) 5 mg QHS PRN PO INSOMNIA Last administered on 04/18/19 03:37; Admin Dose 5 MG; Start 04/01/19 at 21:00 IV Flush (NS 10 ml) 10 ml PRN PRN IV IV PROTOCOL; Start 04/03/19 at 17:00 Epoetin Jatinder-epbx (Retacrit (Esrd)) 10,000 unit AFTER EACH DIALYSIS SC Last administered on 04/19/19 01:19; Admin Dose 10,000 UNIT; Start 04/04/19 at 16:00 Miscellaneous Information 1 ea NOTE XX ; Start 04/05/19 at 11:30 Glucose (Glutose) 15 gm Q15M PRN PO DECREASED GLUCOSE; Start 04/05/19 at 11:30 Glucose (Glutose) 22.5 gm Q15M PRN PO DECREASED GLUCOSE; Start 04/05/19 at 11:30 Dextrose (D50w Syringe) 25 ml Q15M PRN IV DECREASED GLUCOSE Last administered on 04/11/19at 11:46; Admin Dose 25 ML; Start 04/05/19 at 11:30 Dextrose (D50w Syringe) 50 ml Q15M PRN IV DECREASED GLUCOSE; Start 04/05/19 at 11:30 Glucagon (Glucagen) 1 mg Q15M PRN IM DECREASED GLUCOSE; Start 04/05/19 at 11:30 Glucose (Glutose) 15 gm Q15M PRN BUCCAL DECREASED GLUCOSE; Start 04/05/19 at 11:30 Diagnostic Test (Pha) (Accu-Chek) 1 ea 02 XX Last administered on 04/14/19at 01:31; Admin Dose 1 EA; Start 04/06/19 at 02:00 Insulin Glargine (Lantus) 20 units DAILY@2000 SC Last administered on 04/18/19 21:07; Admin Dose 20 UNITS; Start 04/06/19 at 20:00 Ondansetron HCl (Zofran Inj) 4 mg Q6H PRN IV NAUSEA AND/OR VOMITING Last admi nistered on 04/15/19 15:45; Admin Dose 4 MG; Start 04/07/19 at 17:00 Midodrine (Proamatine) 10 mg TID@0900,1300,1700 PO Last administered on 04/18/19 09:44; Admin Dose 10 MG; Start 04/12/19 at 09:00 Vancomycin HCl (Vanco Iv Per Pharmacy) VANCOMYCIN PER PHARMACY PER PROTOCOL XX ; Start 04/16/19 at 14:30 Vasopressin 60 unit/Dextrose 60 ml @ 1.2 mls/hr PRN IV ; Start 04/16/19 at 20:00 Diagnostic Test (Pha) (Accu-Chek) 1 ea Q4 XX Last administered on 04/19/19 16:54; Admin Dose 1 EA; Start 04/18/19 at 17:00 Total Parenteral Nutrition 1,000 ml @ 50 mls/hr Q20H IV Last administered on 04/19/19 13:29; Admin Dose 50 MLS/HR; Start 04/18/19 at 16:00 Alteplase, Recombinant (Cathflo (Activase)) 2 mg MAY REPEAT X1 PRN CATHETER IF CATHETER REMAINS OCCULUDED Last administered on 04/17/19 04:06; Admin Dose 2 MG; Start 04/16/19 at 22:30 Meropenem/Sodium Chloride 50 ml @ 100 mls/hr Q24H IVPB Last administered on 04/19/19 13:28; Admin Dose 100 MLS/HR; Start 04/18/19 at 12:00 Insulin Aspart (Novolog Insulin Pen) NOVOLOG *MILD* ALGORI... Q4 SC Last administered on 04/19/19 13:56; Admin Dose 1 UNIT; Start 04/18/19 at 17:00 Norepinephrine 32 mg/Dextrose 250 ml @ 0.47 mls/hr TITRATE IV ; Start 04/19/19 at 09:00 Vancomycin HCl 250 ml @ 125 mls/hr ONCE IVPB Last administered on 04/19/19 13:29; Admin Dose 125 MLS/HR; Start 04/19/19 at 12:00; Stop 04/19/19 at 23:59 Miscellaneous Information (*Rx Drug Level Order Reminder*) RANDOM VANCO LEVEL ... 0500 ONCE XX ; Start 04/22/19 at 05:00; Stop 04/22/19 at 05:01 OLIVIA CANTOR MD Apr 19, 2019 18:39
[2019-04-19] MEDS: NORepinephrine 32 MG in DEXTROSE 5% 218 ML IV SCH (19:45)
[2019-04-19] MEDS: ATORVASTATIN 20 MG TAB PO SCH (19:58)
[2019-04-19] MEDS: MONTELUKAST 10 MG TAB PO SCH (19:58)
[2019-04-19] MEDS: INSULIN GLARGINE [LANTus] (100 UNITS/ML) SYG SC SCH (20:10)
[2019-04-20] VITALS (93 sets, daily range): BP systolic 66–138; BP diastolic 17–106; PULSE 61–115; RESP 14–36
[2019-04-20] MEDS: ACCU-CHEK XX SCH ×9 (00:51→23:46)
[2019-04-20] MEDS: INSULIN ASPART [NOVOLOG] 3 ML PEN SC SCH ×6 (00:55→20:48)
[2019-04-20] MEDS: SEVELAMER CARBONATE 0.8 GM PKT PO SCH ×3 (07:35→17:06)
[2019-04-20] MEDS: BALSAM PERU/CASTOR OIL 60 GM TUBE TOP SCH ×2 (08:09→22:46)
[2019-04-20] MEDS: AMIODARONE 200 MG TAB PO SCH (08:18)
[2019-04-20] MEDS: DOCUSATE SODIUM 100 MG CAP PO SCH ×2 (08:18→20:35)
[2019-04-20] MEDS: ASPIRIN (EC) 81 MG TAB PO SCH (08:18)
[2019-04-20] MEDS: MIDODRINE 5 MG TAB PO SCH ×3 (08:18→17:00)
--- NOTE | 2019-04-20 08:19 | PN ---
DATE: 04/20/2019 SUBJECTIVE: The patient remains critically ill on pressor support. No other acute events noted. No hemoptysis, hematemesis or hematochezia. OBJECTIVE: VITAL SIGNS: Blood pressure is 98/66, respirations 29, pulse 110, temperature 98.7. HEENT: Head is normocephalic. NECK: Supple. HEART: Regular rate. LUNGS: Show diminished breath sounds at the base. ABDOMEN: Soft, nontender to palpation without rebound or guarding. EXTREMITIES: Negative for clubbing, cyanosis. Positive edema. DERMATOLOGIC: No rashes. MUSCULOSKELETAL: No joint effusion. NEUROLOGIC: No change in exam. MEDICATIONS: Reviewed. LABORATORY DATA: Reviewed. IMAGING STUDIES: Reviewed. ASSESSMENT AND PLAN: 1. Septic shock. Etiology is secondary to gram-negative bacteremia. The patient remains on pressor support, unable to be weaned off. Continue current medical management. Continue antibiotic therapy . 2. 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 Continue to monitor. Follow up with GI and Oncology. The patient is unstable for ERCP. 3. Anemia. Continue to monitor hemoglobin and hematocrit levels. 4. Mineral bone disorder. Monitor calcium and phosphorus levels. 5. End-stage renal disease. Plan is for hemodialysis today. 6. Volume overload. Continue ultrafiltration if hemodynamically stable. 7. Diabetes. Continue current insulin regimen. 8. Nutrition. Continue TPN. 9. Arrhythmia with history of pacemaker. 10. Acute encephalopathy, etiology is toxic metabolic. 11. Lower extremity wounds. Continue wound care. 12. Pleural effusion, status post thoracentesis. Please note, the patient's overall prognosis is poor. Continue to monitor. Follow up with palliativ e care. Dictated By: ADA RANGEL DO NR/NTS Conf#: [id number] DID#: [id number] CC: DYLAN GREENE MD; TRAE TRAVIS MD;*EndCC*
--- NOTE | 2019-04-20 09:25 | CONS ---
Assessment/Plan Assessment/Plan Hospital Course (Demo Recall) ID PROGRESS NOTE CURRENT ABX: DAY # =>Vanco IV + MERREM 04/20/19 0400 04/20/19 0400 24H INTERVAL SUMMARY * Elderly male, lethargic, non-communicative * Currently in HD session -- low grade temps persisting, WBC downtrend DIAGNOSTIC IMAGING * 04/20/19 CXR:IMPRESSION: Cardiomegaly with calcified atherosclerosis in the aorta. Stable central pulmonary vascular congestion and mild interstitial prominence in both lungs. Stable extensive infiltrates throughout both lungs with moderate pleural effusions. * 04/04/19 CXR: (+)PNA Stable left lower lung infiltrates with small to moderate left pleural effusion.Stable perihilar right lower lung infiltrates and small right pleural effusion. * 04/04/19 CT ABD-PEL: * 1. Again noted is severe dilatation of left intrahepatic biliary ducts. No gross evidence of hepatic mass is seen, though sensitivity is markedly limited without IV contrast. Findings remain concerning for obstructive mass in the central left hepatic lobe, as described in the prior CT report. * 2. Findings compatible with peritoneal carcinomatosis. Moderate ascites, grossly stable. * 3. Stable mild cardiomegaly. Coronary arterial and aortoiliac atheros clerotic calcifications. * 4. Mild to moderate bilateral pleural effusions, grossly stable. Bibasilar atelectasis. * 5. Cholelithiasis, without evidence for cholecystitis. * 6. Chronic bilateral renal cortical thinning and atrophy, unchanged. MICRO: * 04/14/19 THORA (-) * 04/02/19 BCX (-) * 04/01/19 BCX (+) 2/2 BACTEROIDES FRAGILIS PHYSICAL EXAMINATION: GENERAL: VSS, NAD HEENT: AT, NC, NECK: Supple, CHEST: Rise symmetrical without dyspnea on observation HEART: Pulse RRR ABDOMEN: Benign EXTREMITIES: Warm, dry SKIN: No rash, no diaphoresis ID ASSESSMENT 83 yo M admit with: 1. Sepsis with shock 2. Bacteremia ?source 3. End-stage renal disease, hemodialysis dependent * RUEXT AVF 4. Recently diagnosed hepatocellular carcinoma, poss obstructing mass and per itoneal carcinomatosis 5. Coronary artery disease status post permanent pacemaker 6. Diabetes 7. Atrial fibrillation 8. Pulmonary edema 9. Patient w/(+) evidence on CXR -- on ABX coverage for HCAP (-)MRSA Nares ABX ALLERGIES: KNDA INVASIVES: PIV CURRENT ABX: DAY # MERREM + Vanco IV ID RECOMMENDATIONS/PLAN: 1. Patient continues on ABX for PNA -- WILL DC ABX when WBC normalizes . Consultation Date/Type/Reason Admit Date/Time Apr 01, 2019 at 17:43 Initial Consult Date 04/03/19 Requesting Provider: ADA RANGEL DO Date/Time of Note DATE: 04/20/19 TIME: 09:24 Exam/Review of Systems Exam Vitals Vital Signs Date Temp Pulse Resp B/P (MAP) Pulse Ox O2 O2 Flow FiO2 Time Delivery Rate 04/20/19 102 17 113/37 92 Nasal 09:00 (62) Cannula 04/20/19 99.7 08:00 04/20/19 2.0 06:00 Intake and Output 04/19/19 04/19/19 04/20/19 1515:00 23:00 07:00 IntakeIntake Total 400 ml 811.3 ml 780.9 ml OutputOutput Total 0 ml 0 ml BalanceBalance 400 ml 811.3 ml 780.9 ml Results Result Diagram: 04/20/19 0400 04/20/19 0400 Results 24hrs Laboratory Tests Test 04/19/19 09:43 04/19/19 13:52 04/19/19 16:53 04/19/19 20:04 Bedside Glucose 194 172 133 149 Test 04/20/19 00:50 04/20/19 04:00 04/20/19 05:30 04/20/19 08:20 Bedside Glucose 179 199 201 White Blood Count 16.5 H Red Blood Count 3.05 L Hemoglobin 9.1 L Hematocrit 29.7 L Mean Corpuscular Volume 97.4 Mean Corpuscular 29.8 Hemoglobin Mean Corpuscular 30.6 L Hemoglobin Concent Red Cell Distribution 18.6 H Width Platelet Count 164 Mean Platelet Volume 11.4 H Immature Granulocytes % 1.400 H Neutrophils % 78.7 H Lymphocytes % 11.2 L Monocytes % 7.5 Eosinophils % 0.7 Basophils % 0.5 Nucleated Red Blood 0.4 H Cells % Immature Granulocytes # 0.230 H Neutrophils # 13.0 H Lymphocytes # 1.9 Monocytes # 1.2 H Eosinophils # 0.1 Basophils # 0.1 Nucleated Red Blood 0.1 H Cells # Sodium Level 136 Potassium Level 3.9 Chloride Level 104 Carbon Dioxide Level 24 Anion Gap 8 Blood Urea Nitrogen 32 H Creatinine 3.95 H Est Glomerular Filtrat Rate mL/min Glucose Level 169 Calcium Level 7.9 L Phosphorus Level 3.7 Magnesium Level 2.0 Medications Medication Current Medications Amiodarone HCl (Cordarone) 200 mg DAILY PO Last administered on 04/18/19 09:44; Admin Dose 200 MG; Start 04/02/19 at 09:00 Aspirin (Halfprin) 81 mg DAILY PO Last administered on 04/18/19 09:43; Admin Dose 81 MG; Start 04/02/19 at 09:00 Atorvastatin Calcium (Lipitor) 20 mg QHS PO Last administered on 04/15/19 20:53; Admin Dose 20 MG; Start 04/01/19 at 21:00 Docusate Sodium (Colace) 100 mg BID PO Last administered on 04/18/19 09:44; Admin Dose 100 MG; Start 04/01/19 at 21:00 Montelukast Sodium (Singulair) 10 mg QHS PO Last administered on 04/17/19 20:16; Admin Dose 10 MG; Start 04/01/19 at 21:00 Sevelamer Carbonate (Renvela) 1.6 gm BID WITH MEALS PO Last administered on 04/17/19 17:37; Admin Dose 1.6 GM; Start 04/01/19 at 21:00 Albuterol/ Ipratropium (Duoneb) 3 ml Q2H RESP THERAPY PRN NEB SHORTNESS OF BREATH Last administered on 04/09/19 21:01; Admin Dose 3 ML; Start 04/01/19 at 21:00 Zolpidem Tartrate (Ambien) 5 mg QHS PRN PO INSOMNIA Last administered on 9at 03:37; Admin Dose 5 MG; Start 04/01/19 at 21:00 IV Flush (NS 10 ml) 10 ml PRN PRN IV IV PROTOCOL; Start 04/03/19 at 17:00 Epoetin Jatinder-epbx (Retacrit (Esrd)) 10,000 unit AFTER EACH DIALYSIS SC Last administered on 04/19/19 01:19; Admin Dose 10,000 UNIT; Start 04/04/19 at 16:00 Miscellaneous Information 1 ea NOTE XX ; Start 04/05/19 at 11:30 Glucose (Glutose) 15 gm Q15M PRN PO DECREASED GLUCOSE; Start 04/05/19 at 11:30 Glucose (Glutose) 22.5 gm Q15M PRN PO DECREASED GLUCOSE; Start 04/05/19 at 11:30 Dextrose (D50w Syringe) 25 ml Q15M PRN IV DECREASED GLUCOSE Last administered on 04/11/19at 11:46; Admin Dose 25 ML; Start 04/05/19 at 11:30 Dextrose (D50w Syringe) 50 ml Q15M PRN IV DECREASED GLUCOSE; Start 04/05/19 at 11:30 Glucagon (Glucagen) 1 mg Q15M PRN IM DECREASED GLUCOSE; Start 04/05/19 at 11:30 Glucose (Glutose) 15 gm Q15M PRN BUCCAL DECREASED GLUCOSE; Start 04/05/19 at 11:30 Diagnostic Test (Pha) (Accu-Chek) 1 ea 02 XX Last administered on 04/14/19at 01:31; Admin Dose 1 EA; Start 04/06/19 at 02:00 Insulin Glargine (Lantus) 20 units DAILY@2000 SC Last administered on 04/19/19at 20:10; Admin Dose 20 UNITS; Start 04/06/19 at 20:00 Ondansetron HCl (Zofran Inj) 4 mg Q6H PRN IV NAUSEA AND/OR VOMITING Last administered on 04/15/19at 15:45; Admin Dose 4 MG; Start 04/07/19 at 17:00 Midodrine (Proamatine) 10 mg TID@0900,1300,1700 PO Last administered on 04/18/19at 09:44; Admin Dose 10 MG; Start 04/12/19 at 09:00 Vancomycin HCl (Vanco Iv Per Pharmacy) VANCOMYCIN PER PHARMACY PER PROTOCOL XX ; Start 04/16/19 at 14:30 Vasopressin 60 unit/Dextrose 60 ml @ 1.2 mls/hr PRN IV ; Start 04/16/19 at 20:00 Diagnostic Test (Pha) (Accu-Chek) 1 ea Q4 XX Last administered on 04/19/19at 16:54; Admin Dose 1 EA; Start 04/18/19 at 17:00 Total Parenteral Nutrition 1,000 ml @ 50 mls/hr Q20H IV Last administered on 04/19/19 13:29; Admin Dose 50 MLS/HR; Start 04/18/19 at 16:00 Alteplase, Recombinant (Cathflo (Activase)) 2 mg MAY REPEAT X1 PRN CATHETER IF CATHETER REMAINS OCCULUDED Last administered on 04/17/19 04:06; Admin Dose 2 MG; Start 04/16/19 at 22:30 Meropenem/Sodium Chloride 50 ml @ 100 mls/hr Q24H IVPB Last administered on 04/19/19 13:28; Admin Dose 100 MLS/HR; Start 04/18/19 at 12:00 Insulin Aspart (Novolog Insulin Pen) NOVOLOG *MILD* ALGORI... Q4 SC Last administered on 04/20/19 08:35; Admin Dose 2 UNIT; Start 04/18/19 at 17:00 Norepinephrine 32 mg/Dextrose 250 ml @ 0.47 mls/hr TITRATE IV Last administered on 04/19/19 19:45; Admin Dose 7.97 MLS/HR; Start 04/19/19 at 09:00 Miscellaneous Information (*Rx Drug Level Order Reminder*) RANDOM VANCO LEVEL ... 0500 ONCE XX ; Start 04/22/19 at 05:00; Stop 04/22/19 at 05:01 MARCIA ROBERTSON NP Apr 20, 2019 09:25
[2019-04-20] MEDS: TPN 1,000 ML IV SCH (10:27)
[2019-04-20] MEDS: NORepinephrine 32 MG in DEXTROSE 5% 218 ML IV SCH (10:29)
--- NOTE | 2019-04-20 13:01 | CONS ---
Consult Date/Type/Reason Admit Date/Time Apr 01, 2019 at 17:43 Initial Consult Date 04/03/19 Type of Consultation: Pulm/CCM Requesting Provider: ADA RANGEL DO Date/Time of Note DATE: 04/20/19 TIME: 12:58 Subjective No events overnight. Remains on pressor support. Objective Vitals Vital Signs Date Temp Pulse Resp B/P (MAP) Pulse Ox O2 O2 Flow FiO2 Time Delivery Rate 04/20/19 96 12:45 04/20/19 18 97/47 (64) 100 Nasal 12:00 Cannula 04/20/19 2.0 10:15 04/20/19 99.7 08:00 Intake and Output 04/19/19 04/19/19 04/20/19 1515:00 23:00 07:00 IntakeIntake Total 400 ml 811.3 ml 840.9 ml OutputOutput Total 0 ml 0 ml BalanceBalance 400 ml 811.3 ml 840.9 ml Exam HEENT: Neck supple; no JVD; no LAD CVS: Irreg, S1 and S2 CHEST: Bilateral rales and coarse BS ABD: Distended, NT, + BS EXT: No c/c; + edema Results/Medications Result Diagram: 04/20/19 0400 04/20/19 0400 Results 24 hrs Laboratory Tests Test 04/19/19 13:52 04/19/19 16:53 04/19/19 20:04 04/20/19 00:50 Bedside Glucose 172 133 149 179 Test 04/20/19 04:00 04/20/19 05:30 04/20/19 08:20 White Blood Count 16.5 H Red Blood Count 3.05 L Hemoglobin 9.1 L Hematocrit 29.7 L Mean Corpuscular Volume 97.4 Mean Corpuscular 29.8 Hemoglobin Mean Corpuscular 30.6 L Hemoglobin Concent Red Cell Distribution 18.6 H Width Platelet Count 164 Mean Platelet Volume 11.4 H Immature Granulocytes % 1.400 H Neutrophils % 78.7 H Lymphocytes % 11.2 L Monocytes % 7.5 Eosinophils % 0.7 Basophils % 0.5 Nucleated Red Blood 0.4 H Cells % Immature Granulocytes # 0.230 H Neutrophils # 13.0 H Lymphocytes # 1.9 Monocytes # 1.2 H Eosinophils # 0.1 Basophils # 0.1 Nucleated Red Blood 0.1 H Cells # Sodium Level 136 Potassium Level 3.9 Chloride Level 104 Carbon Dioxide Level 24 Anion Gap 8 Blood Urea Nitrogen 32 H Creatinine 3.95 H Est Glomerular Filtrat Rate mL/min Glucose Level 169 Calcium Level 7.9 L Phosphorus Level 3.7 Magnesium Level 2.0 Bedside Glucose 199 201 Home Meds Reported Medications Docusate Sodium* (Docusate Sodium*) 100 Mg Capsule, 100 MG PO BID, #60 CAP 04/01/19 Metoprolol Succinate* (Toprol XL*) 25 Mg Tab.sr.24h, 25 MG PO DAILY, #30 TAB 04/01/19 Aspirin* (Aspirin* EC) 81 Mg Tablet.dr, 81 MG PO DAILY, TAB 04/01/19 Fenofibrate, Micronized (Fenofibrate) 134 Mg Capsule, 134 MG PO DAILY, CAP 04/01/19 Sevelamer Carbonate* (Renvela*) 800 Mg Tablet, 1.6 GM PO BID, TAB 04/01/19 Amiodarone Hcl* (Amiodarone Hcl*) 200 Mg Tablet, 200 MG PO DAILY, #30 TAB TAKE Q TUES,TH,SAT WITH DIALYSIS 04/01/19 Montelukast Sodium* (Montelukast Sodium*) 10 Mg Tablet, 10 MG PO QHS, #30 TAB 04/01/19 [Nephro-Elieser] No Conflict Check, 1 TAB PO DAILY 04/01/19 Sacubitril/Valsartan (Entresto 24 mg-26 mg Tablet) 1 Each Tablet, 1 EACH PO BID, TAB 04/01/19 Midodrine* (Midodrine*) 5 Mg Tablet, 5 MG PO DAILY, TAB 04/01/19 Furosemide* (Furosemide*) 40 Mg Tablet, 40 MG PO DAILY, TAB 04/01/19 Atorvastatin Calcium* (Atorvastatin Calcium*) 20 Mg Tablet, 20 MG PO QHS, #30 TAB 04/01/19 Medications Current Medications Amiodarone HCl (Cordarone) 200 mg DAILY PO Last administered on 04/18/19at 09:44; Admin Dose 200 MG; Start 04/02/19 at 09:00 Aspirin (Halfprin) 81 mg DAILY PO Last administered on 04/18/19at 09:43; Admin Dose 81 MG; Start 04/02/19 at 09:00 Atorvastatin Calcium (Lipitor) 20 mg QHS PO Last administered on 04/15/19 20:53; Admin Dose 20 MG; Start 04/01/19 at 21:00 Docusate Sodium (Colace) 100 mg BID PO Last administered on 04/18/19 09:44; Admin Dose 100 MG; Start 04/01/19 at 21:00 Montelukast Sodium (Singulair) 10 mg QHS PO Last administered on 04/17/19 20:16; Admin Dose 10 MG; Start 04/01/19 at 21:00 Sevelamer Carbonate (Renvela) 1.6 gm BID WITH MEALS PO Last administered on 04/17/19 17:37; Admin Dose 1.6 GM; Start 04/01/19 at 21:00 Albuterol/ Ipratropium (Duoneb) 3 ml Q2H RESP THERAPY PRN NEB SHORTNESS OF BREATH Last administered on 04/09/19 21:01; Admin Dose 3 ML; Start 04/01/19 at 21:00 Zolpidem Tartrate (Ambien) 5 mg QHS PRN PO INSOMNIA Last administered on 03:37; Admin Dose 5 MG; Start 04/01/19 at 21:00 IV Flush (NS 10 ml) 10 ml PRN PRN IV IV PROTOCOL; Start 04/03/19 at 17:00 Epoetin Jatinder-epbx (Retacrit (Esrd)) 10,000 unit AFTER EACH DIALYSIS SC Last administered on 04/19/19 01:19; Admin Dose 10,000 UNIT; Start 04/04/19 at 16:00 Miscellaneous Information 1 ea NOTE XX ; Start 04/05/19 at 11:30 Glucose (Glutose) 15 gm Q15M PRN PO DECREASED GLUCOSE; Start 04/05/19 at 11:30 Glucose (Glutose) 22.5 gm Q15M PRN PO DECREASED GLUCOSE; Start 04/05/19 at 11:30 Dextrose (D50w Syringe) 25 ml Q15M PRN IV DECREASED GLUCOSE Last administered on 04/11/19 11:46; Admin Dose 25 ML; Start 04/05/19 at 11:30 Dextrose (D50w Syringe) 50 ml Q15M PRN IV DECREASED GLUCOSE; Start 04/05/19 at 11:30 Glucagon (Glucagen) 1 mg Q15M PRN IM DECREASED GLUCOSE; Start 04/05/19 at 11:30 Glucose (Glutose) 15 gm Q15M PRN BUCCAL DECREASED GLUCOSE; Start 04/05/19 at 11:30 Diagnostic Test (Pha) (Accu-Chek) 1 ea 02 XX Last administered on 04/14/19at 01:31; Admin Dose 1 EA; Start 04/06/19 at 02:00 Insulin Glargine (Lantus) 20 units DAILY@2000 SC Last administered on 04/19/19at 20:10; Admin Dose 20 UNITS; Start 04/06/19 at 20:00 Ondansetron HCl (Zofran Inj) 4 mg Q6H PRN IV NAUSEA AND/OR VOMITING Last administered on 04/15/19at 15:45; Admin Dose 4 MG; Start 04/07/19 at 17:00 Midodrine (Proamatine) 10 mg TID@0900,1300,1700 PO Last administered on 04/18/19at 09:44; Admin Dose 10 MG; Start 04/12/19 at 09:00 Vancomycin HCl (Vanco Iv Per Pharmacy) VANCOMYCIN PER PHARMACY PER PROTOCOL XX ; Start 04/16/19 at 14:30 Vasopressin 60 unit/Dextrose 60 ml @ 1.2 mls/hr PRN IV ; Start 04/16/19 at 20:00 Diagnostic Test (Pha) (Accu-Chek) 1 ea Q4 XX Last administered on 04/19/19at 16:54; Admin Dose 1 EA; Start 04/18/19 at 17:00 Total Parenteral Nutrition 1,000 ml @ 50 mls/hr Q20H IV Last administered on 04/20/19at 10:27; Admin Dose 50 MLS/HR; Start 04/18/19 at 16:00 Alteplase, Recombinant (Cathflo (Activase)) 2 mg MAY REPEAT X1 PRN CATHETER IF CATHETER REMAINS OCCULUDED Last administered on 04/17/19at 04:06; Admin Dose 2 MG; Start 04/16/19 at 22:30 Meropenem/Sodium Chloride 50 ml @ 100 mls/hr Q24H IVPB Last administered on 04/19/19 13:28; Admin Dose 100 MLS/HR; Start 04/18/19 at 12:00 Insulin Aspart (Novolog Insulin Pen) NOVOLOG *MILD* ALGORI... Q4 SC Last administered on 04/20/19at 08:35; Admin Dose 2 UNIT; Start 04/18/19 at 17:00 Norepinephrine 32 mg/Dextrose 250 ml @ 0.47 mls/hr TITRATE IV Last administered on 04/20/19at 10:29; Admin Dose 7.5 MLS/HR; Start 04/19/19 at 09:00 Miscellaneous Information (*Rx Drug Level Order Reminder*) RANDOM VANCO LEVEL ... 0500 ONCE XX ; Start 04/22/19 at 05:00; Stop 04/22/19 at 05:01 Assessment/Plan Assessment/Plan (Daily) IMP: 1. Persistent septic shock requiring vasopressor support blood cultures positive for Bacteroides ongoing vasopressor requirement, no evidence of renal insufficiency. 2. History of end-stage renal failure on hemodialysis 3. History of cholangiocarcinoma. 4. History of arrhythmia with pacemaker 5. Diabetes mellitus 6. Dysphagia remains risk of aspiration. 7. Encephalopathy toxic metabolic, appears to be slowly improving 8. Hypoxemic respiratory failure with pleural effusion status post thoracentesis. RECS: 1. Continue supplemental O2 as needed 2. HD with UF. 3. Continue antibiotics per ID 4. Am labs 5. Titrate vasopressors to keep map greater than 65 6. Aspiration precautions 7. Appreciate Palliative Care input Critical care time 40 minutes Family considering transition to comfort care. DNR noted. LUKE ORTIZ MD Apr 20, 2019 13:01
[2019-04-20] MEDS: MEROPENEM 500MG/50 ML (PMX) 50 ML IVPB SCH (14:03)
--- NOTE | 2019-04-20 14:29 | CONS ---
Assessment/Plan Assessment/Plan Assessment/Plan (Daily) Hospital Course (Demo Recall) 83 yo male 1. Severe sepsis. -Bacteremia with possible intra-abdominal etiology 2. Ascites. -04/14 paracentesis 3. Pneumonia. 4. Cholangiocarcinoma with carcinomatosis. -H/O hepatocellular cancer -CA 199 1000 and alpha-fetoprotein was within normal limit. This cancer cell marker are more in favor of cholangiocarcinoma rather than hepatocellular cancer. 5. Diabetes mellitus. 6. Atrial fibrillation. -paced 7. Congestive heart failure. 8. Dilated left-sided biliary system. 9. Anemia. -positive fob, low iron, tibc, %sat, high ferritin -when stable can consider EGD/colon. 10. ESRD -on HD Plan -Continue ICU supportive care Is on TPN Continue antibiotic Since blood pressure is stabilizing reduced norepinephrine, patient is developing discoloration of the toes of lower extremities Consultation Date/Type/Reason Admit Date/Time Apr 01, 2019 at 17:43 Initial Consult Date 04/03/19 Requesting Provider: ADA RANGEL DO Date/Time of Note DATE: 04/20/19 TIME: 14:28 24 HR Interval Summary Subjective hx not possible: pt critical Exam/Review of Systems Exam Vitals Vital Signs Date Temp Pulse Resp B/P (MAP) Pulse Ox O2 O2 Flow FiO2 Time Delivery Rate 04/20/19 114 13:30 04/20/19 18 97/47 (64) 100 Nasal 12:00 Cannula 04/20/19 2.0 10:15 04/20/19 99.7 08:00 Intake and Output 04/19/19 04/19/19 04/20/19 1515:00 23:00 07:00 IntakeIntake Total 400 ml 811.3 ml 840.9 ml OutputOutput Total 0 ml 0 ml BalanceBalance 400 ml 811.3 ml 840.9 ml Psych: confusion Respiratory: diminished breath sounds Cardiovascular: regular rate and rhythm, nl pulses Extremities: edema Results Result Diagram: 04/20/19 0400 04/20/19 0400 Results 24hrs Laboratory Tests Test 04/19/19 16:53 04/19/19 20:04 04/20/19 00:50 04/20/19 04:00 Bedside Glucose 133 149 179 White Blood Count 16.5 H Red Blood Count 3.05 L Hemoglobin 9.1 L Hematocrit 29.7 L Mean Corpuscular Volume 97.4 Mean Corpuscular 29.8 Hemoglobin Mean Corpuscular 30.6 L Hemoglobin Concent Red Cell Distribution 18.6 H Width Platelet Count 164 Mean Platelet Volume 11.4 H Immature Granulocytes % 1.400 H Neutrophils % 78.7 H Lymphocytes % 11.2 L Monocytes % 7.5 Eosinophils % 0.7 Basophils % 0.5 Nucleated Red Blood 0.4 H Cells % Immature Granulocytes # 0.230 H Neutrophils # 13.0 H Lymphocytes # 1.9 Monocytes # 1.2 H Eosinophils # 0.1 Basophils # 0.1 Nucleated Red Blood 0.1 H Cells # Sodium Level 136 Potassium Level 3.9 Chloride Level 104 Carbon Dioxide Level 24 Anion Gap 8 Blood Urea Nitrogen 32 H Creatinine 3.95 H Est Glomerular Filtrat Rate mL/min Glucose Level 169 Calcium Level 7.9 L Phosphorus Level 3.7 Magnesium Level 2.0 Test 04/20/19 05:30 04/20/19 08:20 04/20/19 12:58 Bedside Glucose 199 201 115 Medications Medication Current Medications Amiodarone HCl (Cordarone) 200 mg DAILY PO Last administered on 04/18/19 09:44; Admin Dose 200 MG; Start 04/02/19 at 09:00 Aspirin (Halfprin) 81 mg DAILY PO Last administered on 04/18/19 09:43; Admin Dose 81 MG; Start 04/02/19 at 09:00 Atorvastatin Calcium (Lipitor) 20 mg QHS PO Last administered on 04/15/19 20:53; Admin Dose 20 MG; Start 04/01/19 at 21:00 Docusate Sodium (Colace) 100 mg BID PO Last administered on 04/18/19 09:44; Admin Dose 100 MG; Start 04/01/19 at 21:00 Montelukast Sodium (Singulair) 10 mg QHS PO Last administered on 04/17/19 20:1 6; Admin Dose 10 MG; Start 04/01/19 at 21:00 Sevelamer Carbonate (Renvela) 1.6 gm BID WITH MEALS PO Last administered on 04/17/19 17:37; Admin Dose 1.6 GM; Start 04/01/19 at 21:00 Albuterol/ Ipratropium (Duoneb) 3 ml Q2H RESP THERAPY PRN NEB SHORTNESS OF BREATH Last administered on 04/09/19 21:01; Admin Dose 3 ML; Start 04/01/19 at 21:00 Zolpidem Tartrate (Ambien) 5 mg QHS PRN PO INSOMNIA Last administered on 04/18/19at 03:37; Admin Dose 5 MG; Start 04/01/19 at 21:00 IV Flush (NS 10 ml) 10 ml PRN PRN IV IV PROTOCOL; Start 04/03/19 at 17:00 Epoetin Jatinder-epbx (Retacrit (Esrd)) 10,000 unit AFTER EACH DIALYSIS SC Last administered on 04/19/19 01:19; Admin Dose 10,000 UNIT; Start 04/04/19 at 16:00 Miscellaneous Information 1 ea NOTE XX ; Start 04/05/19 at 11:30 Glucose (Glutose) 15 gm Q15M PRN PO DECREASED GLUCOSE; Start 04/05/19 at 11:30 Glucose (Glutose) 22.5 gm Q15M PRN PO DECREASED GLUCOSE; Start 04/05/19 at 11:30 Dextrose (D50w Syringe) 25 ml Q15M PRN IV DECREASED GLUCOSE Last administered on 04/11/19at 11:46; Admin Dose 25 ML; Start 04/05/19 at 11:30 Dextrose (D50w Syringe) 50 ml Q15M PRN IV DECREASED GLUCOSE; Start 04/05/19 at 11:30 Glucagon (Glucagen) 1 mg Q15M PRN IM DECREASED GLUCOSE; Start 04/05/19 at 11:30 Glucose (Glutose) 15 gm Q15M PRN BUCCAL DECREASED GLUCOSE; Start 04/05/19 at 11:30 Diagnostic Test (Pha) (Accu-Chek) 1 ea 02 XX Last administered on 04/14/19at 01:31; Admin Dose 1 EA; Start 04/06/19 at 02:00 Insulin Glargine (Lantus) 20 units DAILY@2000 SC Last administered on 04/19/19at 20:10; Admin Dose 20 UNITS; Start 04/06/19 at 20:00 Ondansetron HCl (Zofran Inj) 4 mg Q6H PRN IV NAUSEA AND/OR VOMITING Last administered on 04/15/19at 15:45; Admin Dose 4 MG; Start 04/07/19 at 17:00 Midodrine (Proamatine) 10 mg TID@0900,1300,1700 PO Last administered on 04/18/19at 09:44; Admin Dose 10 MG; Start 04/12/19 at 09:00 Vancomycin HCl (Vanco Iv Per Pharmacy) VANCOMYCIN PER PHARMACY PER PROTOCOL XX ; Start 04/16/19 at 14:30 Vasopressin 60 unit/Dextrose 60 ml @ 1.2 mls/hr PRN IV ; Start 04/16/19 at 20:00 Diagnostic Test (Pha) (Accu-Chek) 1 ea Q4 XX Last administered on 04/19/19at 16:54; Admin Dose 1 EA; Start 04/18/19 at 17:00 Total Parenteral Nutrition 1,000 ml @ 50 mls/hr Q20H IV Last administered on 04/20/19at 10:27; Admin Dose 50 MLS/HR; Start 04/18/19 at 16:00 Alteplase, Recombinant (Cathflo (Activase)) 2 mg MAY REPEAT X1 PRN CATHETER IF CATHETER REMAINS OCCULUDED Last administered on 04/17/19at 04:06; Admin Dose 2 MG; Start 04/16/19 at 22:30 Meropenem/Sodium Chloride 50 ml @ 100 mls/hr Q24H IVPB Last administered on 04/20/19 14:03; Admin Dose 100 MLS/HR; Start 04/18/19 at 12:00 Insulin Aspart (Novolog Insulin Pen) NOVOLOG *MILD* ALGORI... Q4 SC Last administered on 04/20/19at 08:35; Admin Dose 2 UNIT; Start 04/18/19 at 17:00 Norepinephrine 32 mg/Dextrose 250 ml @ 0.47 mls/hr TITRATE IV Last administered on 04/20/19at 10:29; Admin Dose 7.5 MLS/HR; Start 04/19/19 at 09:00 Miscellaneous Information (*Rx Drug Level Order Reminder*) RANDOM VANCO LEVEL ... 0500 ONCE XX ; Start 04/22/19 at 05:00; Stop 04/22/19 at 05:01 OLIVIA CANTOR MD Apr 20, 2019 14:29
[2019-04-20] MEDS: MONTELUKAST 10 MG TAB PO SCH (20:35)
[2019-04-20] MEDS: ATORVASTATIN 20 MG TAB PO SCH (20:35)
[2019-04-20] MEDS: INSULIN GLARGINE [LANTus] (100 UNITS/ML) SYG SC SCH (20:48)
[2019-04-20] MEDS: VASOPRESSIN 60 UNIT in DEXTROSE 5% 57 ML IV SCH (22:50)
[2019-04-21] VITALS (99 sets, daily range): BP systolic 47–150; BP diastolic 29–126; PULSE 0–115; RESP 0–37
[2019-04-21] MEDS: INSULIN ASPART [NOVOLOG] 3 ML PEN SC SCH ×6 (00:21→20:41)
[2019-04-21] MEDS: TPN 1,000 ML IV SCH (04:16)
[2019-04-21] MEDS: ACCU-CHEK XX SCH ×5 (04:45→20:42)
[2019-04-21] MEDS: NORepinephrine 32 MG in DEXTROSE 5% 218 ML IV SCH (06:15)
[2019-04-21] MEDS: SEVELAMER CARBONATE 0.8 GM PKT PO SCH ×2 (07:35→17:35)
--- NOTE | 2019-04-21 08:31 | PN ---
DATE: 04/21/2019 SUBJECTIVE: The patient remains critically ill. The patient was initiated on a second pressor overn ight as he became more hypotensive. The patient had hemodialysis yesterday, tolerated well. No othe r events noted. Please note I did speak with the patient's son, Jaya, this morning. Discussed with him about the progressive decline of his father's status. He states that he will speak with the re st of the family and make overall determination of goals of care. OBJECTIVE: VITAL SIGNS: Blood pressure is 98/47, respirations 15, pulse 105, temperature 98.6. HEENT: Head is normocephalic. NECK: Supple. HEART: Regular rate. LUNGS: Show diminished breath sounds at the base. ABDOMEN: Soft, nontender to palpation without rebound or guarding. EXTREMITIES: Negative for clubbing, cyanosis. Positive edema. DERMATOLOGIC: No rashes. MUSCULOSKELETAL: No joint effusions. NEUROLOGIC: No change in exam. MEDICATIONS: Have been reviewed. LABORATORY DATA: Has been reviewed. IMAGING STUDIES: Have been reviewed. ASSESSMENT AND PLAN: 1. Septic shock. Etiology is secondary to gram-negative bacteremia. The patient is clinically decl ining, currently on 2 pressors. On antibiotics and fluids. Will continue to monitor. Continue curr ent antibiotic regimen per infectious disease. 2. 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 Will continue to mon itor. Appreciate GI and oncology evaluation. The patient is unstable for ERCP and biopsy for defini tive diagnosis. 3. Anemia. Monitor hemoglobin and hematocrit levels. 4. Mineral bone disorder. Monitor calcium and phosphorus levels. 5. End-stage renal disease. The patient had hemodialysis yesterday. Anticipate dialysis tomorrow i f hemodynamically stable. 6. Volume overload. Attempt ultrafiltration with dialysis if patient is hemodynamically stable. 7. Diabetes. Continue current insulin regimen. 8. Nutrition. Continue TPN. 9. Arrhythmia, history of pacemaker. 10. Acute encephalopathy. Etiology is toxic metabolic. 11. Lower extremity wounds. Continue wound care. 12. Pleural effusion, status post thoracentesis. Please note patient has overall very poor prognosis. Appreciate palliative cares help with managemen t. Please note I spent over 30 minutes of critical care time with this patient. Dictated By: ADA MORENO/CORNELIA Conf#: [id number] DID#: [id number] CC: DYLAN GREENE MD;*End*
[2019-04-21] MEDS: AMIODARONE 200 MG TAB PO SCH (09:00)
[2019-04-21] MEDS: MIDODRINE 5 MG TAB PO SCH ×3 (09:00→17:00)
[2019-04-21] MEDS: ASPIRIN (EC) 81 MG TAB PO SCH (09:00)
[2019-04-21] MEDS: DOCUSATE SODIUM 100 MG CAP PO SCH ×2 (09:00→20:42)
[2019-04-21] MEDS: BALSAM PERU/CASTOR OIL 60 GM TUBE TOP SCH ×2 (09:47→20:42)
--- NOTE | 2019-04-21 09:53 | CONS ---
Consult Date/Type/Reason Admit Date/Time Apr 01, 2019 at 17:43 Initial Consult Date 04/03/19 Type of Consult Pulmonary Requesting Provider: ADA RANGEL DO Date/Time of Note DATE: 04/21/19 TIME: 09:51 Subjective Patient remains somnolent on 2 vasopressors. Objective Vital Signs Date Temp Pulse Resp B/P (MAP) Pulse Ox O2 O2 Flow FiO2 Time Delivery Rate 04/21/19 103 24 99/62 (74) 08:45 04/21/19 94 Nasal 08:00 Cannula 04/21/19 98.5 07:45 04/21/19 2.0 06:00 Intake and Output 04/20/19 04/20/19 04/21/19 1515:00 23:00 07:00 IntakeIntake Total 550 ml 736.7 ml 860.6 ml OutputOutput Total 1500 ml 0 ml 0 ml BalanceBalance -950 ml 736.7 ml 860.6 ml Exam GENERAL: Chronically ill-appearing gentleman on nasal cannula O2 VITAL SIGNS: per chart NECK: Supple. No JVD or lymphadenopathy. CARDIAC EXAM: S1, S2. No added sounds or murmurs. CHEST: Diminished air entry bilaterally ABDOMEN: Soft, nontender. No guarding or rebound. EXTREMITIES: No cyanosis, clubbing edema +2 NEUROLOGIC: Generalized weakness. No focal deficits. Vent Setting Fraction of Inspired Oxygen pe: 28 Results/Medications Result Diagram: 04/21/19 0400 04/21/19 0400 Results 24 hrs Laboratory Tests Test 04/20/19 12:58 04/20/19 17:08 04/20/19 20:42 04/21/19 00:18 Bedside Glucose 115 153 187 198 Test 04/21/19 04:00 04/21/19 04:13 White Blood Count 17.5 H Red Blood Count 3.03 L Hemoglobin 9.1 L Hematocrit 29.9 L Mean Corpuscular Volume 98.7 Mean Corpuscular 30.0 Hemoglobin Mean Corpuscular 30.4 L Hemoglobin Concent Red Cell Distribution 19.5 H Width Platelet Count 159 Mean Platelet Volume 11.8 H Immature Granulocytes % 1.300 H Neutrophils % 75.8 Lymphocytes % 14.6 L Monocytes % 7.6 Eosinophils % 0.2 Basophils % 0.5 Nucleated Red Blood 0.4 H Cells % Immature Granulocytes # 0.220 H Neutrophils # 13.3 H Lymphocytes # 2.6 Monocytes # 1.3 H Eosinophils # 0.0 Basophils # 0.1 Nucleated Red Blood 0.1 H Cells # Sodium Level 135 Potassium Level 4.1 Chloride Level 102 Carbon Dioxide Level 25 Anion Gap 8 Blood Urea Nitrogen 33 H Creatinine 3.37 H Est Glomerular Filtrat Rate mL/min Glucose Level 204 Calcium Level 7.6 L Phosphorus Level 3.6 Magnesium Level 2.0 Bedside Glucose 222 H Medications Current Medications Amiodarone HCl (Cordarone) 200 mg DAILY PO Last administered on 04/18/19 09:44; Admin Dose 200 MG; Start 04/02/19 at 09:00 Aspirin (Halfprin) 81 mg DAILY PO Last administered on 04/18/19 09:43; Admin Dose 81 MG; Start 04/02/19 at 09:00 Atorvastatin Calcium (Lipitor) 20 mg QHS PO Last administered on 04/15/19 20:53; Admin Dose 20 MG; Start 04/01/19 at 21:00 Docusate Sodium (Colace) 100 mg BID PO Last administered on 04/18/19 09:44; Admin Dose 100 MG; Start 04/01/19 at 21:00 Montelukast Sodium (Singulair) 10 mg QHS PO Last administered on 04/17/19 20:16; Admin Dose 10 MG; Start 04/01/19 at 21:00 Sevelamer Carbonate (Renvela) 1.6 gm BID WITH MEALS PO Last administered on 04/17/19 17:37; Admin Dose 1.6 GM; Start 04/01/19 at 21:00 Albuterol/ Ipratropium (Duoneb) 3 ml Q2H RESP THERAPY PRN NEB SHORTNESS OF BREATH Last administered on 04/09/19 21:01; Admin Dose 3 ML; Start 04/01/19 at 21:00 Zolpidem Tartrate (Ambien) 5 mg QHS PRN PO INSOMNIA Last administered on 04/18/19 03:37; Admin Dose 5 MG; Start 04/01/19 at 21:00 IV Flush (NS 10 ml) 10 ml PRN PRN IV IV PROTOCOL; Start 04/03/19 at 17:00 Epoetin Jatinder-epbx (Retacrit (Esrd)) 10,000 unit AFTER EACH DIALYSIS SC Last administered on 04/19/19 01:19; Admin Dose 10,000 UNIT; Start 04/04/19 at 16:00 Miscellaneous Information 1 ea NOTE XX ; Start 04/05/19 at 11:30 Glucose (Glutose) 15 gm Q15M PRN PO DECREASED GLUCOSE; Start 04/05/19 at 11:30 Glucose (Glutose) 22.5 gm Q15M PRN PO DECREASED GLUCOSE; Start 04/05/19 at 11:30 Dextrose (D50w Syringe) 25 ml Q15M PRN IV DECREASED GLUCOSE Last administered on 04/11/19at 11:46; Admin Dose 25 ML; Start 04/05/19 at 11:30 Dextrose (D50w Syringe) 50 ml Q15M PRN IV DECREASED GLUCOSE; Start 04/05/19 at 11:30 Glucagon (Glucagen) 1 mg Q15M PRN IM DECREASED GLUCOSE; Start 04/05/19 at 11:30 Glucose (Glutose) 15 gm Q15M PRN BUCCAL DECREASED GLUCOSE; Start 04/05/19 at 11:30 Diagnostic Test (Pha) (Accu-Chek) 1 ea 02 XX Last administered on 04/14/19at 0 1:31; Admin Dose 1 EA; Start 04/06/19 at 02:00 Insulin Glargine (Lantus) 20 units DAILY@2000 SC Last administered on 04/20/19 20:48; Admin Dose 20 UNITS; Start 04/06/19 at 20:00 Ondansetron HCl (Zofran Inj) 4 mg Q6H PRN IV NAUSEA AND/OR VOMITING Last administered on 04/15/19at 15:45; Admin Dose 4 MG; Start 04/07/19 at 17:00 Midodrine (Proamatine) 10 mg TID@0900,1300,1700 PO Last administered on 04/18/19at 09:44; Admin Dose 10 MG; Start 04/12/19 at 09:00 Vancomycin HCl (Vanco Iv Per Pharmacy) VANCOMYCIN PER PHARMACY PER PROTOCOL XX ; Start 04/16/19 at 14:30 Diagnostic Test (Pha) (Accu-Chek) 1 ea Q4 XX Last administered on 04/19/19at 16:54; Admin Dose 1 EA; Start 04/18/19 at 17:00 Total Parenteral Nutrition 1,000 ml @ 50 mls/hr Q20H IV Last administered on 04/21/19 04:16; Admin Dose 50 MLS/HR; Start 04/18/19 at 16:00 Alteplase, Recombinant (Cathflo (Activase)) 2 mg MAY REPEAT X1 PRN CATHETER IF CATHETER REMAINS OCCULUDED Last administered on 04/17/19 04:06; Admin Dose 2 MG; Start 04/16/19 at 22:30 Meropenem/Sodium Chloride 50 ml @ 100 mls/hr Q24H IVPB Last administered on 04/20/19at 14:03; Admin Dose 100 MLS/HR; Start 04/18/19 at 12:00 Insulin Aspart (Novolog Insulin Pen) NOVOLOG *MILD* ALGORI... Q4 SC Last administered on 04/21/19 09:49; Admin Dose 2 UNIT; Start 04/18/19 at 17:00 Norepinephrine 32 mg/Dextrose 250 ml @ 0.47 mls/hr TITRATE IV Last administered on 04/21/19 06:15; Admin Dose 11.72 MLS/HR; Start 04/19/19 at 09:00 Miscellaneous Information (*Rx Drug Level Order Reminder*) RANDOM VANCO LEVEL ... 0500 ONCE XX ; Start 04/22/19 at 05:00; Stop 04/22/19 at 05:01 Vasopressin 60 unit/Dextrose 60 ml @ 1.2 mls/hr PRN IV Last administered on 04/20/19 22:50; Admin Dose 1.2 MLS/HR; Start 04/20/19 at 20:00 Assessment/Plan Hospital Course (Demo Recall) MP: 1. Persistent septic shock requiring vasopressor support blood cultures positive for Bacteroides ongoing vasopressor requirement, no evidence of renal insufficiency. 2. History of end-stage renal failure on hemodialysis 3. History of cholangiocarcinoma. 4. History of arrhythmia with pacemaker 5. Diabetes mellitus 6. Dysphagia remains risk of aspiration. 7. Encephalopathy toxic metabolic, appears to be slowly improving 8. Hypoxemic respiratory failure with pleural effusion status post thoracentesis. RECS: 1. Continue supplemental O2 as needed 2. HD with UF. 3. Continue antibiotics per ID 4. Am labs 5. Titrate vasopressors to keep map greater than 65 6. Aspiration precautions 7. Appreciate Palliative Care input Critical care time 40 minutes Family considering transition to comfort care. DNR noted. TRAE TRAVIS MD, [facility] Apr 21, 2019 09:53
--- NOTE | 2019-04-21 10:13 | CONS ---
Assessment/Plan Assessment/Plan Hospital Course (Demo Recall) ID PROGRESS NOTE CURRENT ABX: DAY # =>Vanco IV + MERREM 04/21/19 0400 04/21/19 0400 24H INTERVAL SUMMARY * Remains on vasopressors in the ICU -- Elderly male, lethargic, non- communicative * Low grade temps intermittent, WBC downtrend DIAGNOSTIC IMAGING * 04/20/19 CXR:IMPRESSION: Cardiomegaly with calcified atherosclerosis in the aorta. Stable central pulmonary vascular congestion and mild interstitial prominence in both lungs. Stable extensive infiltrates throughout both lungs with moderate pleural effusions. * 04/04/19 CXR: (+)PNA Stable left lower lung infiltrates with small to moder ate left pleural effusion.Stable perihilar right lower lung infiltrates and small right pleural effusion. * 04/04/19 CT ABD-PEL: * 1. Again noted is severe dilatation of left intrahepatic biliary ducts. No gross evidence of hepatic mass is seen, though sensitivity is markedly limited without IV contrast. Findings remain concerning for obstructive mass in the central left hepatic lobe, as described in the prior CT report. * 2. Findings compatible with peritoneal carcinomatosis. Moderate ascites, grossly stable. * 3. Stable mild cardiomegaly. Coronary arterial and aortoiliac atherosclerotic calcifications. * 4. Mild to moderate bilateral pleural effusions, grossly stable. Bibasilar atelectasis. * 5. Cholelithiasis, without evidence for cholecystitis. * 6. Chronic bilateral renal cortical thinning and atrophy, unchanged. MICRO: * 04/14/19 THORA (-) * 04/02/19 BCX (-) * 04/01/19 BCX (+) 2/2 BACTEROIDES FRAGILIS PHYSICAL EXAMINATION: GENERAL: VSS, NAD HEENT: AT, NC, NECK: Supple, CHEST: Rise symmetrical without dyspnea on observation HEART: Pulse RRR ABDOMEN: Benign EXTREMITIES: Warm, dry SKIN: No rash, no diaphoresis ID ASSESSMENT 83 yo M admit with: 1. Sepsis with shock 2. Bacteremia likely GI source 3. End-stage renal disease, hemodialysis dependent * RUEXT AVF 4. Recently diagnosed hepatocellular carcinoma, poss obstructing mass and peritoneal carcinomatosis * Moderate ascites on CT --> Spontaneous bacterial peritonitis in the DDx 5. Coronary artery disease status post permanent pacemaker 6. Diabetes 7. Atrial fibrillation 8. Pulmonary edema 9. Patient w/(+) evidence on CXR -- on ABX coverage for HCAP (-)MRSA Nares ABX ALLERGIES: KNDA INVASIVES: PIV, ICD CURRENT ABX: DAY # MERREM + Vanco IV ID RECOMMENDATIONS/PLAN: 1. Patient continues on ABX for PNA -- as he remains on pressor support . Consultation Date/Type/Reason Admit Date/Time Apr 01, 2019 at 17:43 Initial Consult Date 04/03/19 Requesting Provider: ADA RANGEL DO Date/Time of Note DATE: 04/21/19 TIME: 10:08 Exam/Review of Systems Exam Vitals Vital Signs Date Temp Pulse Resp B/P (MAP) Pulse Ox O2 O2 Flow FiO2 Time Delivery Rate 04/21/19 103 24 99/62 (74) 08:45 04/21/19 94 Nasal 08:00 Cannula 04/21/19 98.5 07:45 04/21/19 2.0 06:00 Intake and Output 04/20/19 04/20/19 04/21/19 1515:00 23:00 07:00 IntakeIntake Total 550 ml 736.7 ml 860.6 ml OutputOutput Total 1500 ml 0 ml 0 ml BalanceBalance -950 ml 736.7 ml 860.6 ml Results Result Diagram: 04/21/19 0400 04/21/19 0400 Results 24hrs Laboratory Tests Test 04/20/19 12:58 04/20/19 17:08 04/20/19 20:42 04/21/19 00:18 Bedside Glucose 115 153 187 198 Test 04/21/19 04:00 04/21/19 04:13 04/21/19 09:46 White Blood Count 17.5 H Red Blood Count 3.03 L Hemoglobin 9.1 L Hematocrit 29.9 L Mean Corpuscular Volume 98.7 Mean Corpuscular 30.0 Hemoglobin Mean Corpuscular 30.4 L Hemoglobin Concent Red Cell Distribution 19.5 H Width Platelet Count 159 Mean Platelet Volume 11.8 H Immature Granulocytes % 1.300 H Neutrophils % 75.8 Lymphocytes % 14.6 L Monocytes % 7.6 Eosinophils % 0.2 Basophils % 0.5 Nucleated Red Blood 0.4 H Cells % Immature Granulocytes # 0.220 H Neutrophils # 13.3 H Lymphocytes # 2.6 Monocytes # 1.3 H Eosinophils # 0.0 Basophils # 0.1 Nucleated Red Blood 0.1 H Cells # Sodium Level 135 Potassium Level 4.1 Chloride Level 102 Carbon Dioxide Level 25 Anion Gap 8 Blood Urea Nitrogen 33 H Creatinine 3.37 H Est Glomerular Filtrat Rate mL/min Glucose Level 204 Calcium Level 7.6 L Phosphorus Level 3.6 Magnesium Level 2.0 Bedside Glucose 222 H 191 Medications Medication Current Medications Amiodarone HCl (Cordarone) 200 mg DAILY PO Last administered on 04/18/19 09:44; Admin Dose 200 MG; Start 04/02/19 at 09:00 Aspirin (Halfprin) 81 mg DAILY PO Last administered on 04/18/19 09:43; Admin Dose 81 MG; Start 04/02/19 at 09:00 Atorvastatin Calcium (Lipitor) 20 mg QHS PO Last administered on 04/15/19 20:53; Admin Dose 20 MG; Start 04/01/19 at 21:00 Docusate Sodium (Colace) 100 mg BID PO Last administered on 04/18/19 09:44; Admin Dose 100 MG; Start 04/01/19 at 21:00 Montelukast Sodium (Singulair) 10 mg QHS PO Last administered on 04/17/19 20:16; Admin Dose 10 MG; Start 04/01/19 at 21:00 Sevelamer Carbonate (Renvela) 1.6 gm BID WITH MEALS PO Last administered on 04/17/19 17:37; Admin Dose 1.6 GM; Start 04/01/19 at 21:00 Albuterol/ Ipratropium (Duoneb) 3 ml Q2H RESP THERAPY PRN NEB SHORTNESS OF BREATH Last administered on 04/09/19 21:01; Admin Dose 3 ML; Start 04/01/19 at 21:00 Zolpidem Tartrate (Ambien) 5 mg QHS PRN PO INSOMNIA Last administered on 04/18/19 03:37; Admin Dose 5 MG; Start 04/01/19 at 21:00 IV Flush (NS 10 ml) 10 ml PRN PRN IV IV PROTOCOL; Start 04/03/19 at 17:00 Epoetin Jatinder-epbx (Retacrit (Esrd)) 10,000 unit AFTER EACH DIALYSIS SC Last administered on 04/19/19 01:19; Admin Dose 10,000 UNIT; Start 04/04/19 at 16:00 Miscellaneous Information 1 ea NOTE XX ; Start 04/05/19 at 11:30 Glucose (Glutose) 15 gm Q15M PRN PO DECREASED GLUCOSE; Start 04/05/19 at 11:30 Glucose (Glutose) 22.5 gm Q15M PRN PO DECREASED GLUCOSE; Start 04/05/19 at 11:30 Dextrose (D50w Syringe) 25 ml Q15M PRN IV DECREASED GLUCOSE Last administered on 04/11/19at 11:46; Admin Dose 25 ML; Start 04/05/19 at 11:30 Dextrose (D50w Syringe) 50 ml Q15M PRN IV DECREASED GLUCOSE; Start 04/05/19 at 11:30 Glucagon (Glucagen) 1 mg Q15M PRN IM DECREASED GLUCOSE; Start 04/05/19 at 11:30 Glucose (Glutose) 15 gm Q15M PRN BUCCAL DECREASED GLUCOSE; Start 04/05/19 at 11:30 Diagnostic Test (Pha) (Accu-Chek) 1 ea 02 XX Last administered on 04/14/19at 01:31; Admin Dose 1 EA; Start 04/06/19 at 02:00 Insulin Glargine (Lantus) 20 units DAILY@2000 SC Last administered on 04/20/19 20:48; Admin Dose 20 UNITS; Start 04/06/19 at 20:00 Ondansetron HCl (Zofran Inj) 4 mg Q6H PRN IV NAUSEA AND/OR VOMITING Last administered on 04/15/19at 15:45; Admin Dose 4 MG; Start 04/07/19 at 17:00 Midodrine (Proamatine) 10 mg TID@0900,1300,1700 PO Last administered on at 09:44; Admin Dose 10 MG; Start 04/12/19 at 09:00 Vancomycin HCl (Vanco Iv Per Pharmacy) VANCOMYCIN PER PHARMACY PER PROTOCOL XX ; Start 04/16/19 at 14:30 Diagnostic Test (Pha) (Accu-Chek) 1 ea Q4 XX Last administered on 04/19/19at 16:54; Admin Dose 1 EA; Start 04/18/19 at 17:00 Total Parenteral Nutrition 1,000 ml @ 50 mls/hr Q20H IV Last administered on 04/21/19at 04:16; Admin Dose 50 MLS/HR; Start 04/18/19 at 16:00 Alteplase, Recombinant (Cathflo (Activase)) 2 mg MAY REPEAT X1 PRN CATHETER IF CATHETER REMAINS OCCULUDED Last administered on 04/17/19 04:06; Admin Dose 2 MG; Start 04/16/19 at 22:30 Meropenem/Sodium Chloride 50 ml @ 100 mls/hr Q24H IVPB Last administered on 04/20/19at 14:03; Admin Dose 100 MLS/HR; Start 04/18/19 at 12:00 Insulin Aspart (Novolog Insulin Pen) NOVOLOG *MILD* ALGORI... Q4 SC Last administered on 04/21/19 09:49; Admin Dose 2 UNIT; Start 04/18/19 at 17:00 Norepinephrine 32 mg/Dextrose 250 ml @ 0.47 mls/hr TITRATE IV Last administered on 04/21/19 06:15; Admin Dose 11.72 MLS/HR; Start 04/19/19 at 09:00 Miscellaneous Information (*Rx Drug Level Order Reminder*) RANDOM VANCO LEVEL ... 0500 ONCE XX ; Start 04/22/19 at 05:00; Stop 04/22/19 at 05:01 Vasopressin 60 unit/Dextrose 60 ml @ 1.2 mls/hr PRN IV Last administered on 04/20/19at 22:50; Admin Dose 1.2 MLS/HR; Start 04/20/19 at 20:00 MARCIA ROBERTSON NP Apr 21, 2019 10:13
--- NOTE | 2019-04-21 10:28 | CONS ---
Consult Date/Type/Reason Admit Date/Time Apr 01, 2019 at 17:43 Initial Consult Date 04/03/19 Type of Consultation: cv Requesting Provider: ADA RANGEL DO Date/Time of Note DATE: 04/21/19 TIME: 10:27 Subjective Interventional cardiology follow-up progress note Subjective: Discussed with the staff. Telemetry was reviewed. Patient has remained in PACED rhythm mostly Patient remains in ICU and still hypotensive and on levophed drip and vasopressin now No report of any chest pain or pressure he denies PND orthopnea to me Objective: General: no acute distress HEENT: NC/AT. pupils are equal. round. NECK: no stridor. CV: RRR. systolic murmur; no gallop or rubs. PULM: no wheezing or rhonchi. GI: SOFT, NT, ND, no rebound or guarding Extremity: + B/L LE edema. no clubbing. neuro: awake Psych: calm rectal: deferred EKG shows ventricular paced rhythm LE U/S arterial study: Monophasic waveforms in the bilateral dorsalis pedis arteries, possibly indicating arterial inflow disease into the bilateral dorsalis pedis arteries. Chest x-ray done 04/15 Increased CHF and/or volume overload. CT 1. Again noted is severe dilatation of left intrahepatic biliary ducts. No gross evidence of hepatic mass is seen, though sensitivity is markedly limited without IV contrast. Findings remain concerning for obstructive mass in the central left hepatic lobe, as described in the prior CT report. 2. Findings compatible with peritoneal carcinomatosis. Moderate ascites, grossly stable. 3. Stable mild cardiomegaly. Coronary arterial and aortoiliac atherosclerotic calcifications. 4. Mild to moderate bilateral pleural effusions, grossly stable. Bibasilar atelectasis. 5. Cholelithiasis, without evidence for cholecystitis. 6. Chronic bilateral renal cortical thinning and atrophy, unchanged. Objective Vitals Vital Signs Date Temp Pulse Resp B/P (MAP) Pulse Ox O2 O2 Flow FiO2 Time Delivery Rate 04/21/19 103 24 99/62 (74) 08:45 04/21/19 94 Nasal 08:00 Cannula 04/21/19 98.5 07:45 04/21/19 2.0 06:00 Intake and Output 04/20/19 04/20/19 04/21/19 1414:59 22:59 06:59 IntakeIntake Total 550 ml 683.5 ml 911.0 ml OutputOutput Total 1500 ml 0 ml 0 ml BalanceBalance -950 ml 683.5 ml 911.0 ml Results/Medications Result Diagram: 04/21/190 04/21/190 Results 24 hrs Laboratory Tests Test 04/20/19 12:58 04/20/19 17:08 04/20/19 20:42 04/21/19 00:18 Bedside Glucose 115 153 187 198 Test 04/21/19 04:00 04/21/19 04:13 04/21/19 09:46 White Blood Count 17.5 H Red Blood Count 3.03 L Hemoglobin 9.1 L Hematocrit 29.9 L Mean Corpuscular Volume 98.7 Mean Corpuscular 30.0 Hemoglobin Mean Corpuscular 30.4 L Hemoglobin Concent Red Cell Distribution 19.5 H Width Platelet Count 159 Mean Platelet Volume 11.8 H Immature Granulocytes % 1.300 H Neutrophils % 75.8 Lymphocytes % 14.6 L Monocytes % 7.6 Eosinophils % 0.2 Basophils % 0.5 Nucleated Red Blood 0.4 H Cells % Immature Granulocytes # 0.220 H Neutrophils # 13.3 H Lymphocytes # 2.6 Monocytes # 1.3 H Eosinophils # 0.0 Basophils # 0.1 Nucleated Red Blood 0.1 H Cells # Sodium Level 135 Potassium Level 4.1 Chloride Level 102 Carbon Dioxide Level 25 Anion Gap 8 Blood Urea Nitrogen 33 H Creatinine 3.37 H Est Glomerular Filtrat Rate mL/min Glucose Level 204 Calcium Level 7.6 L Phosphorus Level 3.6 Magnesium Level 2.0 Bedside Glucose 222 H 191 Home Meds Reported Medications Docusate Sodium* (Docusate Sodium*) 100 Mg Capsule, 100 MG PO BID, #60 CAP 04/01/19 Metoprolol Succinate* (Toprol XL*) 25 Mg Tab.sr.24h, 25 MG PO DAILY, #30 TAB 04/01/19 Aspirin* (Aspirin* EC) 81 Mg Tablet.dr, 81 MG PO DAILY, TAB 04/01/19 Fenofibrate, Micronized (Fenofibrate) 134 Mg Capsule, 134 MG PO DAILY, CAP 04/01/19 Sevelamer Carbonate* (Renvela*) 800 Mg Tablet, 1.6 GM PO BID, TAB 04/01/19 Amiodarone Hcl* (Amiodarone Hcl*) 200 Mg Tablet, 200 MG PO DAILY, #30 TAB TAKE Q TUES,THURS,SAT WITH DIALYSIS 04/01/19 Montelukast Sodium* (Montelukast Sodium*) 10 Mg Tablet, 10 MG PO QHS, #30 TAB 04/01/19 [Nephro-Elieser] No Conflict Check, 1 TAB PO DAILY 04/01/19 Sacubitril/Valsartan (Entresto 24 mg-26 mg Tablet) 1 Each Tablet, 1 EACH PO BID, TAB 04/01/19 Midodrine* (Midodrine*) 5 Mg Tablet, 5 MG PO DAILY, TAB 04/01/19 Furosemide* (Furosemide*) 40 Mg Tablet, 40 MG PO DAILY, TAB 04/01/19 Atorvastatin Calcium* (Atorvastatin Calcium*) 20 Mg Tablet, 20 MG PO QHS, #30 TAB 04/01/19 Medications Current Medications Amiodarone HCl (Cordarone) 200 mg DAILY PO Last administered on 04/18/19 09:44; Admin Dose 200 MG; Start 04/02/19 at 09:00 Aspirin (Halfprin) 81 mg DAILY PO Last administered on 04/18/19 09:43; Admin Dose 81 MG; Start 04/02/19 at 09:00 Atorvastatin Calcium (Lipitor) 20 mg QHS PO Last administered on 04/15/19 20:53; Admin Dose 20 MG; Start 04/01/19 at 21:00 Docusate Sodium (Colace) 100 mg BID PO Last administered on 04/18/19 09:44; Admin Dose 100 MG; Start 04/01/19 at 21:00 Montelukast Sodium (Singulair) 10 mg QHS PO Last administered on 04/17/19 20:16; Admin Dose 10 MG; Start 04/01/19 at 21:00 Sevelamer Carbonate (Renvela) 1.6 gm BID WITH MEALS PO Last administered on 04/17/19 17:37; Admin Dose 1.6 GM; Start 04/01/19 at 21:00 Albuterol/ Ipratropium (Duoneb) 3 ml Q2H RESP THERAPY PRN NEB SHORTNESS OF BREATH Last administered on 04/09/19 21:01; Admin Dose 3 ML; Start 04/01/19 at 21:00 Zolpidem Tartrate (Ambien) 5 mg QHS PRN PO INSOMNIA Last administered on 04/18/19 03:37; Admin Dose 5 MG; Start 04/01/19 at 21:00 IV Flush (NS 10 ml) 10 ml PRN PRN IV IV PROTOCOL; Start 04/03/19 at 17:00 Epoetin Jatinder-epbx (Retacrit (Esrd)) 10,000 unit AFTER EACH DIALYSIS SC Last administered on 04/19/19 01:19; Admin Dose 10,000 UNIT; Start 04/04/19 at 16:00 Miscellaneous Information 1 ea NOTE XX ; Start 04/05/19 at 11:30 Glucose (Glutose) 15 gm Q15M PRN PO DECREASED GLUCOSE; Start 04/05/19 at 11:30 Glucose (Glutose) 22.5 gm Q15M PRN PO DECREASED GLUCOSE; Start 04/05/19 at 11:30 Dextrose (D50w Syringe) 25 ml Q15M PRN IV DECREASED GLUCOSE Last administered on 04/11/19at 11:46; Admin Dose 25 ML; Start 04/05/19 at 11:30 Dextrose (D50w Syringe) 50 ml Q15M PRN IV DECREASED GLUCOSE; Start 04/05/19 at 11:30 Glucagon (Glucagen) 1 mg Q15M PRN IM DECREASED GLUCOSE; Start 04/05/19 at 11:30 Glucose (Glutose) 15 gm Q15M PRN BUCCAL DECREASED GLUCOSE; Start 04/05/19 at 11:30 Diagnostic Test (Pha) (Accu-Chek) 1 ea 02 XX Last administered on 04/14/19 01:31; Admin Dose 1 EA; Start 04/06/19 at 02:00 Insulin Glargine (Lantus) 20 units DAILY@2000 SC Last administered on 04/20/19 20:48; Admin Dose 20 UNITS; Start 04/06/19 at 20:00 Ondansetron HCl (Zofran Inj) 4 mg Q6H PRN IV NAUSEA AND/OR VOMITING Last administered on 04/15/19 15:45; Admin Dose 4 MG; Start 04/07/19 at 17:00 Midodrine (Proamatine) 10 mg TID@0900,1300,1700 PO Last administered on 04/18/19 09:44; Admin Dose 10 MG; Start 04/12/19 at 09:00 Vancomycin HCl (Vanco Iv Per Pharmacy) VANCOMYCIN PER PHARMACY PER PROTOCOL XX ; Start 04/16/19 at 14:30 Diagnostic Test (Pha) (Accu-Chek) 1 ea Q4 XX Last administered on 04/19/19at 16:54; Admin Dose 1 EA; Start 04/18/19 at 17:00 Total Parenteral Nutrition 1,000 ml @ 50 mls/hr Q20H IV Last administered on 04/21/19at 04:16; Admin Dose 50 MLS/HR; Start 04/18/19 at 16:00 Alteplase, Recombinant (Cathflo (Activase)) 2 mg MAY REPEAT X1 PRN CATHETER IF CATHETER REMAINS OCCULUDED Last administered on 04/17/19at 04:06; Admin Dose 2 MG; Start 04/16/19 at 22:30 Meropenem/Sodium Chloride 50 ml @ 100 mls/hr Q24H IVPB Last administered on 04/20/19at 14:03; Admin Dose 100 MLS/HR; Start 04/18/19 at 12:00 Insulin Aspart (Novolog Insulin Pen) NOVOLOG *MILD* ALGORI... Q4 SC Last administered on 04/21/19at 09:49; Admin Dose 2 UNIT; Start 04/18/19 at 17:00 Norepinephrine 32 mg/Dextrose 250 ml @ 0.47 mls/hr TITRATE IV Last administered on 04/21/19 06:15; Admin Dose 11.72 MLS/HR; Start 04/19/19 at 09:00 Miscellaneous Information (*Rx Drug Level Order Reminder*) RANDOM VANCO LEVEL ... 0500 ONCE XX ; Start 04/22/19 at 05:00; Stop 04/22/19 at 05:01 Vasopressin 60 unit/Dextrose 60 ml @ 1.2 mls/hr PRN IV Last administered on 04/20/19at 22:50; Admin Dose 1.2 MLS/HR; Start 04/20/19 at 20:00 Assessment/Plan Hospital Course (Demo Recall) Mildly abnormal troponin secondary to sepsis renal failure etc. Sepsis bacteremia/ septic shock Pneumonia ? cholangiocarcinoma Renal failure dialysis dependent History of arrhythmia probably sick sinus syndrome versus heart block status post MRI compatible [employer] permanent pacemaker Encephalopathy Paroxysmal atrial fibrillation Recommendations: cont aspirin as long as ok with GI and no active bleeding is noted Antibiotic management as per internal medicine and consultants Continue to be hemodialysis as tolerated Unable to tolerate beta-damian due to his low blood pressure levophed and vasopressin as needed . try to wean off if tolerated but still remains hypotensive f/u GI consultation rec Pacemaker card reviewed. pacemaker is an MRI compatible and MRI can be done . need to call [employer] rep to change the pacemaker setting right before and after the MRCP. PLEASE CONTACT [employer] rep (Rubio at [phone]) to arrange for setting change fluid management as per renal Thank you for this referral. We will continue to follow along with you JOSE D SOLOMON MD [facility] JOSE D SOLOMON MD Apr 21, 2019 10:28
[2019-04-21] MEDS: MEROPENEM 500MG/50 ML (PMX) 50 ML IVPB SCH (12:52)
--- NOTE | 2019-04-21 13:27 | CONS ---
Assessment/Plan Assessment/Plan Assessment/Plan (Daily) ospital Course (Demo Recall) 83 yo male 1. Severe sepsis. -Bacteremia with possible intra-abdominal etiology 2. Ascites. -04/14 paracentesis 3. Pneumonia. 4. Cholangiocarcinoma with carcinomatosis. -H/O hepatocellular cancer -CA 199 1000 and alpha-fetoprotein was within normal limit. This cancer cell marker are more in favor of cholangiocarcinoma rather than hepatocellular cancer. 5. Diabetes mellitus. 6. Atrial fibrillation. -paced 7. Congestive heart failure. 8. Dilated left-sided biliary system. 9. Anemia. -positive fob, low iron, tibc, %sat, high ferritin -when stable can consider EGD/colon. 10. ESRD -on HD Plan -Continue ICU supportive care. Patient is now on 2 pressors supportive medication Is on TPN Continue antibiotic Consultation Date/Type/Reason Admit Date/Time Apr 01, 2019 at 17:43 Initial Consult Date 04/03/19 Requesting Provider: ADA RANGEL DO Date/Time of Note DATE: 04/21/19 TIME: 13:25 24 HR Interval Summary Constitutional: no complaints Exam/Review of Systems Exam Vitals Vital Signs Date Temp Pulse Resp B/P (MAP) Pulse Ox O2 O2 Flow FiO2 Time Delivery Rate 04/21/19 103 24 99/62 (74) 08:45 04/21/19 Nasal 2.0 08:00 Cannula 04/21/19 94 08:00 04/21/19 98.5 07:45 Intake and Output 04/20/19 04/20/19 04/21/19 1515:00 23:00 07:00 IntakeIntake Total 550 ml 736.7 ml 860.6 ml OutputOutput Total 1500 ml 0 ml 0 ml BalanceBalance -950 ml 736.7 ml 860.6 ml Constitutional: alert ENMT: nl external ears & nose, nl lips & teeth, nl nasal mucosa & septum Respiratory: diminished breath sounds Cardiovascular: regular rate and rhythm Extremities: edema (Mild discoloration of all the toes in both the lower extremities) Results Result Diagram: 04/21/19 0400 04/21/19 0400 Results 24hrs Laboratory Tests Test 04/20/19 17:08 04/20/19 20:42 04/21/19 00:18 04/21/19 04:00 Bedside Glucose 153 187 198 White Blood Count 17.5 H Red Blood Count 3.03 L Hemoglobin 9.1 L Hematocrit 29.9 L Mean Corpuscular Volume 98.7 Mean Corpuscular 30.0 Hemoglobin Mean Corpuscular 30.4 L Hemoglobin Concent Red Cell Distribution 19.5 H Width Platelet Count 159 Mean Platelet Volume 11.8 H Immature Granulocytes % 1.300 H Neutrophils % 75.8 Lymphocytes % 14.6 L Monocytes % 7.6 Eosinophils % 0.2 Basophils % 0.5 Nucleated Red Blood 0.4 H Cells % Immature Granulocytes # 0.220 H Neutrophils # 13.3 H Lymphocytes # 2.6 Monocytes # 1.3 H Eosinophils # 0.0 Basophils # 0.1 Nucleated Red Blood 0.1 H Cells # Sodium Level 135 Potassium Level 4.1 Chloride Level 102 Carbon Dioxide Level 25 Anion Gap 8 Blood Urea Nitrogen 33 H Creatinine 3.37 H Est Glomerular Filtrat Rate mL/min Glucose Level 204 Calcium Level 7.6 L Phosphorus Level 3.6 Magnesium Level 2.0 Test 04/21/19 04:13 04/21/19 09:46 04/21/19 12:55 04/21/19 12:58 Bedside Glucose 222 H 191 211 218 Medications Medication Current Medications Amiodarone HCl (Cordarone) 200 mg DAILY PO Last administered on 04/18/19 09:44; Admin Dose 200 MG; Start 04/02/19 at 09:00 Aspirin (Halfprin) 81 mg DAILY PO Last administered on 04/18/19 09:43; Admin Dose 81 MG; Start 04/02/19 at 09:00 Atorvastatin Calcium (Lipitor) 20 mg QHS PO Last administered on 04/15/19 20:53; Admin Dose 20 MG; Start 04/01/19 at 21:00 Docusate Sodium (Colace) 100 mg BID PO Last administered on 04/18/19 09:44; Admin Dose 100 MG; Start 04/01/19 at 21:00 Montelukast Sodium (Singulair) 10 mg QHS PO Last administered on 04/17/19 20:16; Admin Dose 10 MG; Start 04/01/19 at 21:00 Sevelamer Carbonate (Renvela) 1.6 gm BID WITH MEALS PO Last administered on 04/17/19 17:37; Admin Dose 1.6 GM; Start 04/01/19 at 21:00 Albuterol/ Ipratropium (Duoneb) 3 ml Q2H RESP THERAPY PRN NEB SHORTNESS OF BREATH Last administered on 04/09/19at 21:01; Admin Dose 3 ML; Start 04/01/19 at 21:00 Zolpidem Tartrate (Ambien) 5 mg QHS PRN PO INSOMNIA Last administered on 04/18/19at 03:37; Admin Dose 5 MG; Start 04/01/19 at 21:00 IV Flush (NS 10 ml) 10 ml PRN PRN IV IV PROTOCOL; Start 04/03/19 at 17:00 Epoetin Jatinder-epbx (Retacrit (Esrd)) 10,000 unit AFTER EACH DIALYSIS SC Last administered on 04/19/19at 01:19; Admin Dose 10,000 UNIT; Start 04/04/19 at 16:00 Miscellaneous Information 1 ea NOTE XX ; Start 04/05/19 at 11:30 Glucose (Glutose) 15 gm Q15M PRN PO DECREASED GLUCOSE; Start 04/05/19 at 11:30 Glucose (Glutose) 22.5 gm Q15M PRN PO DECREASED GLUCOSE; Start 04/05/19 at 11:30 Dextrose (D50w Syringe) 25 ml Q15M PRN IV DECREASED GLUCOSE Last administered on 04/11/19at 11:46; Admin Dose 25 ML; Start 04/05/19 at 11:30 Dextrose (D50w Syringe) 50 ml Q15M PRN IV DECREASED GLUCOSE; Start 04/05/19 at 11:30 Glucagon (Glucagen) 1 mg Q15M PRN IM DECREASED GLUCOSE; Start 04/05/19 at 11:30 Glucose (Glutose) 15 gm Q15M PRN BUCCAL DECREASED GLUCOSE; Start 04/05/19 at 11:30 Insulin Glargine (Lantus) 20 units DAILY@2000 SC Last administered on 04/20/19at 20:48; Admin Dose 20 UNITS; Start 04/06/19 at 20:00 Ondansetron HCl (Zofran Inj) 4 mg Q6H PRN IV NAUSEA AND/OR VOMITING Last administered on 04/15/19at 15:45; Admin Dose 4 MG; Start 04/07/19 at 17:00 Midodrine (Proamatine) 10 mg TID@0900,1300,1700 PO Last administered on 04/18/19 09:44; Admin Dose 10 MG; Start 04/12/19 at 09:00 Vancomycin HCl (Vanco Iv Per Pharmacy) VANCOMYCIN PER PHARMACY PER PROTOCOL XX ; Start 04/16/19 at 14:30 Diagnostic Test (Pha) (Accu-Chek) 1 ea Q4 XX Last administered on 04/19/19at 16:54; Admin Dose 1 EA; Start 04/18/19 at 17:00 Total Parenteral Nutrition 1,000 ml @ 25 mls/hr Q24H IV Last administered on 04/21/19at 04:16; Admin Dose 50 MLS/HR; Start 04/18/19 at 16:00 Alteplase, Recombinant (Cathflo (Activase)) 2 mg MAY REPEAT X1 PRN CATHETER IF CATHETER REMAINS OCCULUDED Last administered on 04/17/19at 04:06; Admin Dose 2 MG; Start 04/16/19 at 22:30 Meropenem/Sodium Chloride 50 ml @ 100 mls/hr Q24H IVPB Last administered on 04/21/19at 12:52; Admin Dose 100 MLS/HR; Start 04/18/19 at 12:00 Norepinephrine 32 mg/Dextrose 250 ml @ 0.47 mls/hr TITRATE IV Last administer ed on 04/21/19at 06:15; Admin Dose 11.72 MLS/HR; Start 04/19/19 at 09:00 Miscellaneous Information (*Rx Drug Level Order Reminder*) RANDOM VANCO LEVEL ... 0500 ONCE XX ; Start 04/22/19 at 05:00; Stop 04/22/19 at 05:01 Vasopressin 60 unit/Dextrose 60 ml @ 1.2 mls/hr PRN IV Last administered on 04/20/19 22:50; Admin Dose 1.2 MLS/HR; Start 04/20/19 at 20:00 Insulin Aspart (Novolog Insulin Pen) NOVOLOG *MODERATE* ALGORI... Q4 SC ; Start 04/21/19 at 13:00 Miscellaneous Information (* Miscellaneous Pharmacy Order) Discontinue all previ... ONCE ONCE XX ; Start 04/21/19 at 13:30; Stop 04/21/19 at 13:31 OLIVIA CANTOR MD Apr 21, 2019 13:27
[2019-04-21] MEDS: VASOPRESSIN 60 UNIT in DEXTROSE 5% 57 ML IV SCH (16:04)
[2019-04-21] MEDS: INSULIN GLARGINE [LANTus] (100 UNITS/ML) SYG SC SCH (20:40)
[2019-04-21] MEDS: MONTELUKAST 10 MG TAB PO SCH (20:42)
[2019-04-21] MEDS: ATORVASTATIN 20 MG TAB PO SCH (20:42)
[2019-04-21] MEDS ORDERED: PHENYLephrine 20MG IN 250 ML 250 ML ONE (22:29)
[2019-04-21] MEDS ORDERED: PHENYLephrine 80 MG in DEXTROSE 5% 242 ML IV SCH (23:30)
[2019-04-21] MEDS ORDERED: EPINEPHrine 4 MG in SOD CHLORIDE 0.9% 246 ML IV SCH (23:30)
[2019-04-21] MEDS ORDERED: PHENYLephrine 20MG IN 250 ML 250 ML IV SCH (23:30)
[2019-04-22] VITALS: PULSE 0; RESP 0
[2019-04-22 00:09] VITALS: BP 80/66; PULSE 75
[2019-04-22 00:15] VITALS: PULSE 0; RESP 0
[2019-04-22 00:30] VITALS: PULSE 0; RESP 0
[2019-04-22 00:45] VITALS: PULSE 0
== END 2019-04-22 00:20 | disposition expired | DRG 871 ==
LOC: E/R 15:36 → ICU 17:43 → CANRESERV 19:04 → EDBEDREQSVC 19:17 → ICU 04-09 11:37
PROVIDERS: ADMIT Internal Medicine; ATTEND Internal Medicine
PROC: 5A1D70Z Performance of Urinary Filtration, Intermittent, Less than 6 Hours Per Day (ICD-10-PCS; 2019-04-02)
PROC: 02HV33Z Insertion of Infusion Device into Superior Vena Cava, Percutaneous Approach (ICD-10-PCS; principal; 2019-04-03)
PROC: 0W9B3ZX Drainage of Left Pleural Cavity, Percutaneous Approach, Diagnostic (ICD-10-PCS; 2019-04-14)
DX: A41.59 Other Gram-negative sepsis (principal); R65.21 Severe sepsis with septic shock; N18.6 End stage renal disease; G92 Toxic encephalopathy; J18.9 Pneumonia, unspecified organism; I50.33 Acute on chronic diastolic (congestive) heart failure; J96.91 Respiratory failure, unspecified with hypoxia; C80.0 Disseminated malignant neoplasm, unspecified; I13.2 Hypertensive heart and chronic kidney disease with heart failure and with stage 5 chronic kidney disease, or end stage renal disease; C22.1 Intrahepatic bile duct carcinoma; C78.6 Secondary malignant neoplasm of retroperitoneum and peritoneum; E87.2 Acidosis; R18.8 Other ascites; J90 Pleural effusion, not elsewhere classified; D63.1 Anemia in chronic kidney disease; E87.5 Hyperkalemia; I50.84 End stage heart failure; E11.22 Type 2 diabetes mellitus with diabetic chronic kidney disease; I48.0 Paroxysmal atrial fibrillation; J44.9 Chronic obstructive pulmonary disease, unspecified; K83.9 Disease of biliary tract, unspecified; L89.92 Pressure ulcer of unspecified site, stage 2; R19.5 Other fecal abnormalities; E87.6 Hypokalemia; E83.51 Hypocalcemia; E83.42 Hypomagnesemia; I25.10 Atherosclerotic heart disease of native coronary artery without angina pectoris; R79.89 Other specified abnormal findings of blood chemistry; K74.60 Unspecified cirrhosis of liver; Z99.2 Dependence on renal dialysis; Z95.0 Presence of cardiac pacemaker; Z53.09 Procedure and treatment not carried out because of other contraindication; Z66 Do not resuscitate
CPT/HCPCS: 36415; 36569; 36600; 71045; 74176; 76705; 76937; 76942; 80048; 80053; 80202; 82105; 82270; 82378; 82533; 82728; 82803; 82945; 82962; 83036; 83540; 83605; 83615; 83735; 84100; 84132; 84134; 84145; 84157; 84478; 84484; 85025; 85610; 85730; 86301; 87070; 87081; 87102; 87116; 87340; 88104; 88305; 89051; 90935; 92526; 92610; 93005; 93306; 93922; 93971; 94664; 96374; 96375; J0171; J0610; J0692; J0885; J1335; J1815; J2185; J2270; J2370; J2405; J2997; J3370; J3475; J3480; J7030; J7040; J7042; J7050; J7070; P9047; Q5105; Q9967